=== PATIENT | male | born 1980 | race Caucasian/White ===

== ENCOUNTER 2020-01-07 15:30 | Inpatient (IN) | payer MEDICAID, SELFPAY ==
[2020-01-08 01:42] VITALS: BMI 34.5
[2020-01-09 06:39] VITALS: BP 91/55; PULSE 71; RESP 16; TEMP 36; O2SAT 94
[2020-01-09 07:00] VITALS: BMI 76.8
[2020-01-09] MEDS: Amphetamine Mixed Salts 20 MG TABLET PO ×2 (09:20→12:28)
[2020-01-09] MEDS: Amphetamine Mixed Salts 10 MG TABLET PO ×2 (09:20→12:28)
[2020-01-09] MEDS: Nicotine 14 MG PATCH.TD24 TRANSDERMA (09:21)
[2020-01-09] MEDS: Paliperidone ER 9 MG TAB.ER.24 PO (09:21)
[2020-01-09] MEDS: Sertraline HCL 100 MG TABLET PO (09:21)
[2020-01-09 09:31] VITALS: BP 128/60; PULSE 108
[2020-01-09] MEDS: atenoloL 25 MG TABLET PO (09:31)
[2020-01-09 14:45] VITALS: BMI 34.8
[2020-01-09 14:47] VITALS: BMI 76.8
--- NOTE | 2020-01-09 15:25 | P.PNPSI_ITS ---
Assessment & Plan Assessment & Plan (1) Suicidal ideation: Status: Acute Code(s): R45.851 - Suicidal ideations Assessment and Plan: No longer has SI (2) Opioid use: Status: Acute Code(s): F11.90 - Opioid use, unspecified, uncomplicated Assessment and Plan: No WD. Feels secure on sobriety Will continue methadone (3) Schizoaffective disorder: Status: Acute Code(s): F25.9 - Schizoaffective disorder, unspecified Assessment and Plan: Tolerated invega sustenna No other changes DC tommorrow Greater than 50% of the session was spent on counseling and/or coordination of care Subjective Subjective Date of Service: 01/09/20 Reason For Visit: Mdd Subjective Notes: Conditional Voluntary Interim History: Jaswinder received the invega sustenna yesterday and he feels that it was something he will continue with. He has no AH and he feels that he is ready to go home. He has no SI and he is supported by his mother. He declines having a VNA since this was not effective for him. He feels confident in his his sobriety. Medication Compliance: Yes Side effects from medications: No Attending Groups: Yes Mental Status Exam Mental Status Exam Patient Appearance: Well Grooomed Patient Orientation: Person, Place, Time and Situation Level of Consciousness: Awake Patient Behavior: Appropriate Patient Cognition Impaired: No Ability to Follow Directions: Excellent Speech Pattern: Clear Hallucinations: Auditory (Quiet) Delusions: Not Present Thought Process: Intact and Goal Oriented Thought Content: Preoccupation Depressive Symptoms: Increased Anxiety and Low Self Esteem Judgement: Good Diagnostics Vital Signs (24Hr): Vital Signs - 24 hr 01/09/20 06:39 01/09/20 09:31 Temperature 96.8 F Pulse Rate 71 108 H Respiratory Rate 16 Blood Pressure 91/55 L 128/60 Pulse Oximetry 94 Body Mass Index 76.8 Labs Labs: Laboratory Results - last 48 hr 01/06/20 01/07/20 01/08/20 20:34 11:13 07:42 Estimat Average Glucose 108 Hemoglobin A1c 5.4 Triglycerides Cholesterol LDL Cholesterol, Calc HDL Cholesterol Urine Opiates Screen POSITIVE H Ur Barbiturates Screen NOT DETECTED Phencyclidine Screen NOT DETECTED Ur Amphetamines Screen NOT DETECTED U Benzodiazepines Scrn NOT DETECTED Urine Cocaine Screen POSITIVE H U Cannabinoids Screen POSITIVE H Coronavirus (PCR) NEGATIVE 01/08/20 07:42 Estimat Average Glucose Hemoglobin A1c Triglycerides 130 D Cholesterol 146 LDL Cholesterol, Calc 61 HDL Cholesterol 59 D Urine Opiates Screen Ur Barbiturates Screen Phencyclidine Screen Ur Amphetamines Screen U Benzodiazepines Scrn Urine Cocaine Screen U Cannabinoids Screen Coronavirus (PCR) Medications Medications Ambulatory Orders Medication Instructions Recorded atenolol 25 mg PO DAILY 01/08/20 clonidine HCl 0.1 mg PO BID PRN 01/08/20 dextroamphetamine-amphetamine 30 mg PO BID@0830,1330 01/08/20 [Adderall XR] lorazepam 1 mg PO BID PRN 01/08/20 methadone [Methadone Intensol] 40 mg PO QAM 01/08/20 naloxone 8 mg INTRANASAL ONCE 01/08/20 nicotine 1 patch TRANSDERMAL DAILY 01/08/20 paliperidone 9 mg PO QAM 01/08/20 sertraline 100 mg PO DAILY 01/08/20 trazodone 100 mg PO BEDTIME 01/08/20 Allergies Allergies Allergy/AdvReac Type Severity Reaction Status Date / Time tomato [Tomato] Allergy Severe DIFFICULTY Unverified 12/26/19 15:17 BREATHING, swelling of face and throat divalproex sodium Allergy Mild SEIZURES Unverified 12/26/19 15:17 [From Depakote] olanzapine [From Zyprexa] Allergy Mild NIPPLES Unverified 12/26/19 15:17 LEAK risperidone [From Risperdal] Allergy Mild UNKNOWN Unverified 12/26/19 15:17 quetiapine [From SEROQUEL] Allergy Unknown HEART Unverified 12/26/19 15:17 PALPITATIONS lithium [[place]] AdvReac Mild STOMACH Unverified 12/26/19 15:17 PAIN aripiprazole [From ABILIFY] AdvReac Unknown DYSTONIA Unverified 12/26/19 15:17
[2020-01-09] MEDS: LORazepam 1 MG TABLET PO ×2 (16:02→20:14)
[2020-01-09 16:58] VITALS: BP 125/67; PULSE 73; TEMP 36.5
[2020-01-09 19:07] VITALS: BP 118/73; PULSE 104
[2020-01-09] MEDS: cloNIDine HCL 0.1 MG TABLET PO (19:07)
[2020-01-09] MEDS: traZODone HCL 100 MG TABLET PO (20:15)
[2020-01-10 06:14] VITALS: BP 112/63; PULSE 69; RESP 16; TEMP 35.7; O2SAT 98
[2020-01-10] MEDS: Paliperidone ER 9 MG TAB.ER.24 PO (08:36)
[2020-01-10] MEDS: Amphetamine Mixed Salts 20 MG TABLET PO (08:38)
[2020-01-10] MEDS: Sertraline HCL 100 MG TABLET PO (08:39)
[2020-01-10] MEDS: Amphetamine Mixed Salts 10 MG TABLET PO (08:39)
[2020-01-10 08:42] VITALS: BP 112/63; PULSE 69
[2020-01-10] MEDS: atenoloL 25 MG TABLET PO (08:42)
[2020-01-10] MEDS: Nicotine 14 MG PATCH.TD24 TRANSDERMA (08:43)
--- NOTE | 2020-01-10 09:12 | PM.PSYDC ---
DS: Providers Provider Date of admission: 01/07/20 15:30 Primary care physician: Jefry Robbins MD Attending physician on admission: Karishma Chavira Consults: 01/08/20 01:48 Consult to Crisis Routine Attending physician on discharge: Karishma Chavira Anticipated date of discharge: 01/10/20 DS: Diagnosis Discharge Diagnosis (1) Suicidal ideation: Status: Resolved (2) Opioid use: Status: Chronic (3) Schizoaffective disorder: Status: Chronic Discharge Plan Discharge Anticipated Discharge Date/Time: 01/10/20 11:45 Patient Disposition: Home, Self-Care Referrals: [facility] [Other] - 01/22/20 2:00 pm (Telehealth appointment) [facility] [Other] - 01/13/20 12:00 pm (Telehealth appointment) [facility] [Other] - 01/21/20 1:00 pm (Intake will be via phone, IOP will be virtual) Jefry Robbins MD [Primary Care Provider] - 01/16/20 11:45 am (DR.CHRISTIAN MATTSON VIA VIDEO OR TELEVISIT.FAX [phone]) Discharge Medications: New Invega Sustenna 156 mg/mL syringe 156 mg IM QMONTH Qty: 1 RF: 0 acetaminophen 325 mg Tablet 650 mg PO Q6H PRN (Reason: HEADACHE/PAIN,MILD (SCALE 1-3)) Qty: 30 RF: 0 trazodone 100 mg tablet 100 mg PO BEDTIME Qty: 30 RF: 0 Continued atenolol 25 mg Tablet 25 mg PO DAILY RF: 0 dextroamphetamine-amphetamine [Adderall XR] 30 mg Capsule,Extended Release 24hr 30 mg PO BID@0830,1330 RF: 0 clonidine HCl 0.1 mg Tablet 0.1 mg PO BID PRN (Reason: Anxiety) RF: 0 lorazepam 1 mg Tablet 1 mg PO BID PRN (Reason: Anxiety) RF: 0 nicotine 14 mg/24 hr Patch 24 Hour 1 patch TRANSDERMAL DAILY RF: 0 sertraline 100 mg Tablet 100 mg PO DAILY RF: 0 trazodone 100 mg Tablet 100 mg PO BEDTIME RF: 0 methadone [Methadone Intensol] 10 mg/mL Concentrate 40 mg PO QAM RF: 0 paliperidone 9 mg Tablet Extended Release 24hr 9 mg PO QAM RF: 0 naloxone 4 mg/actuation [place],Non-Aerosol 8 mg INTRANASAL ONCE RF: 0 Discharge Orders: Discharge Order (Routine); Ordered 01/10/20 Ordered By: Karishma Chavira Diet: advance to your usual diet Activity on Discharge: As tolerated Stand Alone Forms: Community Support, Substance Abuse Outpt Detox Discharge Date/Time: 01/10/20 11:25 Visit Report Forms: Patient Portal Discharge page Care Plan Goals: Stay on your medications Health Concerns: Psychosis Plan of Treatment: Reduce psychosis
== END 2020-01-10 11:25 | disposition home or self-care (01) | DRG 755 ==
PROVIDERS: Admitting Provider Psychiatry & Neurology Psychiatry; Emergency Provider Emergency Medicine; PCP Family Medicine; Visit Provider Psychiatry & Neurology Psychiatry
DX: F43.10 Post-traumatic stress disorder, unspecified (principal); F25.9 Schizoaffective disorder, unspecified; R45.851 Suicidal ideations; F11.11 Opioid abuse, in remission; Z79.899 Other long term (current) drug therapy
CPT/HCPCS: 80061; 80307; 83036; 90686; 99285; U0003

== ENCOUNTER 2020-01-19 12:03 | Emergency (ER) | payer MEDICAID, SELFPAY ==
[2020-01-19 12:35] VITALS: BP 137/103; PULSE 115; RESP 16; TEMP 36.6; O2SAT 97; BMI 32.5
--- NOTE | 2020-01-19 12:47 | ED.PSYCH ---
HPI - Psych General Chief Complaint: Psychiatric Symptoms Stated Complaint: SI ON HEROIN/PILLS Time Seen by Provider: 01/19/20 12:43 Source: patient Mode of arrival: ambulatory Limitations: no limitations History of Present Illness HPI Narrative: this is a 39 years old male with a history of polysubstance abuse, history of PTSD, history of schizoaffective disorder who presented today to the ED with a chief complaint of SI. MD complaint: suicidal ideation and feels depressed Onset (ago): day(s) (1) Duration: constant History of same: Yes Relieving factors: none Exacerbating factors: none Context: recent drug abuse Associated psychiatric symptoms: depression Associated symptoms: denies other symptoms Related Data Home Medications Medication Instructions Recorded Confirmed atenolol 25 mg PO DAILY 01/08/20 01/08/20 clonidine HCl 0.1 mg PO BID PRN 01/08/20 01/08/20 dextroamphetamine-amphetamine 30 mg PO BID@0830,1330 01/08/20 01/08/20 [Adderall XR] lorazepam 1 mg PO BID PRN 01/08/20 01/08/20 methadone [Methadone Intensol] 40 mg PO QAM 01/08/20 01/08/20 naloxone 8 mg INTRANASAL ONCE 01/08/20 01/08/20 nicotine 1 patch TRANSDERMAL DAILY 01/08/20 01/08/20 paliperidone 9 mg PO QAM 01/08/20 01/08/20 sertraline 100 mg PO DAILY 01/08/20 01/08/20 trazodone 100 mg PO BEDTIME 01/08/20 01/08/20 Previous Rx's Medication Instructions Recorded acetaminophen 650 mg PO Q6H PRN #30 tab 01/10/20 paliperidone palmitate [Invega 156 mg IM QMONTH #1 syringe 01/10/20 Sustenna] trazodone 100 mg PO BEDTIME #30 tab 01/10/20 Allergies Allergy/AdvReac Type Severity Reaction Status Date / Time tomato [Tomato] Allergy Severe DIFFICULTY Verified 01/09/20 15:59 BREATHING, swelling of face and throat divalproex sodium Allergy Mild SEIZURES Verified 01/09/20 15:59 [From Depakote] olanzapine [From Zyprexa] Allergy Mild NIPPLES Verified 01/09/20 15:59 LEAK risperidone [From Risperdal] Allergy Mild UNKNOWN Verified 01/09/20 15:59 quetiapine [From SEROQUEL] Allergy Unknown HEART Verified 01/09/20 15:59 PALPITATIONS lithium [[place]] AdvReac Mild STOMACH Verified 01/09/20 15:59 PAIN aripiprazole [From ABILIFY] AdvReac Unknown DYSTONIA Verified 01/09/20 15:59 Review of Systems Review of Systems: Yes all other systems are reviewed and are negative Cardiovascular: Cardiovascular: Reports as per HPI and Reports no additional cardiovascular complaints Respiratory: Respiratory: Reports no additional respiratory complaints and Reports no additional respiratory complaints Gastrointestinal: Gastrointestinal: Denies abdominal pain Neurologic: Reports system reviewed and no additional complaints, except as documented Hematologic/Lymphatic: Hematologic/Lymphatic: Reports no additional hematologic/lymphatic complaints [facility] Past Medical History Attestation statement: The following information was validated with the patient. Medical History Hep C w/o coma, chronic HTN (hypertension) Social History Social History Alcohol intake: never Smoking Status: Current every day smoker Use of substances other than those prescribed or required for medical reasons: Yes Substance Use Type: Heroin Advance Directives: No Advance Directives Information Provided: Yes Physical Exam Vital Signs: Vital Signs: Vital Signs Temp Pulse Resp BP Pulse Ox 01/19/20 14:09 114 H 137/103 H 01/19/20 12:35 98 F 115 H 16 137/103 H 97 Body Mass Index 32.5 Const: General: cooperative Orientation/consciousness: oriented to person HENMT: Head: Yes normal to inspection and Yes No palpable skull fracture present Eyes: General: appearance normal, both eyes and all related structures Neck: Neck: Yes normal visual inspection and Yes anterior neck swelling Chest: Chest palpation & inspection: normal inspection of the chest and normal palpation of entire chest wall Resp: Effort & Inspection: normal respiratory effort and able to speak in complete sentences Cardio: Jugular venous distension: no JVD Rate: regular rate Rhythm: regular rhythm Skin: General skin exam: no rashes or lesions noted Neuro: General: oriented to person and CN's II-XI intact bilaterally Extrem: General: Yes normal to inspection, Yes full ROM and Yes capillary refill normal Psych: Attitude: cooperative Thought content: Suicidality present Course Reevaluation(s) Reevaluation #1: we are waiting for psychiatric evaluation, the case will be transferred to to [facility] care Time: 16:29 MDM - Psych Restraints Face to Face Assessment: Face to Face Assessment: Current Situation: After assessment of the patient, a review of the pertinent medical record and a discussion with nursing staff, I feel the patient requires a restrain intervention. Reaction To: [] Medical Condition: [] Behavioral State: [] Continued Need: [] Lab Data Result diagrams: 01/19/20 13:36 Labs: Lab Results 01/19/20 01/19/20 01/19/20 Range/Units 13:30 13:36 13:36 WBC 5.0 (4.8-10.8) X10*3/uL RBC 4.76 (4.60-5.80) X10*6/uL Hgb 14.2 (14.0-18.0) g/dl Hct 42.7 (42-52) % MCV 89.7 (80-98) fL MCH 29.8 (27.0-33.0) pg MCHC 33.3 (31.0-36.0) g/dl RDW 12.8 (11.0-16.0) % Plt Count 161 (160-400) X10*3/uL MPV 12.2 (9.4-12.4) fL Immature Gran % (Auto) 0.2 (0.0-0.4) % Neut % (Auto) 60.6 (45-73) % Lymph % (Auto) 30.8 (20-40) % [place] % (Auto) 6.0 (2-11) % Eos % (Auto) 2.0 (0-4) % Baso % (Auto) 0.4 (0-2) % Lymph # (Auto) 1.5 (1.2-4.9) X10*3/uL [place] # (Auto) 0.3 (0.1-1.2) X10*3/uL Eos # (Auto) 0.1 (0.0-0.4) X10*3/uL Baso # (Auto) 0.0 (0.0-0.2) X10*3/uL Abs Immat Gran (auto) 0.01 (0.00-0.03) X10*3/uL Absolute Neuts (auto) 3.0 (2.0-8.3) X10*3/uL Absolute Nucleated RBC 0.000 (0.0-0.012) X10*3/uL Nucleated RBC % (auto) 0.0 (0.0-0.2) /100WBC Urine Opiates Screen POSITIVE H (Not Detect) Ur Barbiturates Screen Not Detected (Not Detect) Ur Phencyclidine Scrn Not Detected (Not Detect) Ur Amphetamines Screen Not Detected (Not Detect) U Benzodiazepines Scrn Not Detected (Not Detect) Urine Cocaine Screen POSITIVE H (Not Detect) U Marijuana (THC) Screen POSITIVE H (Not Detect) Ethyl Alcohol < 10 mg/dL Discharge Plan Discharge Prescriptions: No Action atenolol 25 mg Tablet 25 mg PO DAILY RF: 0 dextroamphetamine-amphetamine [Adderall XR] 30 mg Capsule,Extended Release 24hr 30 mg PO BID@0830,1330 RF: 0 clonidine HCl 0.1 mg Tablet 0.1 mg PO BID PRN (Reason: Anxiety) RF: 0 lorazepam 1 mg Tablet 1 mg PO BID PRN (Reason: Anxiety) RF: 0 nicotine 14 mg/24 hr Patch 24 Hour 1 patch TRANSDERMAL DAILY RF: 0 sertraline 100 mg Tablet 100 mg PO DAILY RF: 0 trazodone 100 mg Tablet 100 mg PO BEDTIME RF: 0 methadone [Methadone Intensol] 10 mg/mL Concentrate 40 mg PO QAM RF: 0 paliperidone 9 mg Tablet Extended Release 24hr 9 mg PO QAM RF: 0 naloxone 4 mg/actuation [place],Non-Aerosol 8 mg INTRANASAL ONCE RF: 0 Invega Sustenna 156 mg/mL syringe 156 mg IM QMONTH Qty: 1 RF: 0 acetaminophen 325 mg Tablet 650 mg PO Q6H PRN (Reason: HEADACHE/PAIN,MILD (SCALE 1-3)) Qty: 30 RF: 0 trazodone 100 mg tablet 100 mg PO BEDTIME Qty: 30 RF: 0
[2020-01-19 13:43] LABS: Basophils Percent Auto 0.4 % (0-2); Eosinophils Absolute Auto 0.1 X10*3/uL (0.0-0.4); Hematocrit 42.7 % (42-52); Hemoglobin 14.2 g/dl (14.0-18.0); Imm Gran Abs Auto 0.01 X10*3/uL (0.00-0.03); Imm Gran Pct Auto 0.2 % (0.0-0.4); Lymphocytes Absolute Auto 1.5 X10*3/uL (1.2-4.9); Lymphocytes Percent Auto 30.8 % (20-40); MANUAL DIFF FLAG NO; Mean Corpuscular HGB Conc 33.3 g/dl (31.0-36.0); Mean Corpuscular Hemoglobin 29.8 pg (27.0-33.0); Mean Corpuscular Volume 89.7 fL (80-98); Mean Platelet Volume 12.2 fL (9.4-12.4); Monocytes Absolute Auto 0.3 X10*3/uL (0.1-1.2); Neutrophils Percent Auto 60.6 % (45-73); Platelet Count 161 X10*3/uL (160-400); Red Blood Count 4.76 X10*6/uL (4.60-5.80); Red Cell Distribution Width 12.8 % (11.0-16.0)
--- NOTE | 2020-01-19 13:54 | PM.PSYCN ---
History of Present Illness Chief Complaint: SI ON HEROIN/PILLS Reason for Consult: Medication management Discussed with referring provider: No ( nursing staff) Sources of Information: patient interviewed and chart reviewed (Well known to me from previous admissions) HPI Narrative: Jaswinder was DC from on 01/10/20. He reports that the prescriptions for atenolol and adderall did not arrive at the pharmacy, though they were prescribed. Adderall XR 30mg po bid and Atenolol 25mg po qam were ordered. He presented to the ER today in a state of agitation. He had acute symptoms of ADHD with restlessness, anxiety and unable to sit still. He reports that he is not able to stand himself, and he has been alienating his family. He denies SI, though he had thought about it due to to his being so uncomfortable Past Psychiatric History: Multiple hospital stays. See records Medical Evaluation Reviewed: No (Has not yet been seen by ER physician) Review of Systems Review of Systems Yes all other systems are reviewed and are negative Reports system reviewed and no additional complaints, except as documented [facility] Medical History Hep C w/o coma, chronic HTN (hypertension) Substance History: History of opioid abuse Diagnostics Vital Signs (24Hr): Vital Signs - 24 hr 01/19/20 12:35 Temperature 98 F Pulse Rate 115 H Respiratory Rate 16 Blood Pressure 137/103 H Pulse Oximetry 97 Body Mass Index 32.5 Labs Results: 01/19/20 13:36 Labs: Laboratory Results - last 48 hr 01/19/20 13:36 WBC 5.0 RBC 4.76 Hgb 14.2 Hct 42.7 MCV 89.7 MCH 29.8 MCHC 33.3 RDW 12.8 Plt Count 161 MPV 12.2 Immature Gran % (Auto) 0.2 Neut % (Auto) 60.6 Lymph % (Auto) 30.8 [place] % (Auto) 6.0 Eos % (Auto) 2.0 Baso % (Auto) 0.4 Lymph # (Auto) 1.5 [place] # (Auto) 0.3 Eos # (Auto) 0.1 Baso # (Auto) 0.0 Abs Immat Gran (auto) 0.01 Absolute Neuts (auto) 3.0 Absolute Nucleated RBC 0.000 Nucleated RBC % (auto) 0.0 Mental Status Exam Mental Status Exam Patient Appearance: Well Grooomed Patient Orientation: Person, Place, Time and Situation Level of Consciousness: Awake and Restless Patient Behavior: Hyperactive Mood Description: Sad and Apprehensive Affect Description: Anxious, Sad and Apprehensive Patient Cognition Impaired: No Ability to Follow Directions: Good Speech Pattern: Spontaneous Speech and Pressured Memory Description: Intact Hallucinations: None Delusions: Not Present Thought Content: positive for Perseveration, negative for Suicidal Ideation and negative for Homicidal Ideation Medications Medications Current Medications Generic Name Dose Route Start Last Admin Trade Name Jairq PRN Reason Stop Dose Admin Amphetamine/Dextroamphetamine 30 mg 01/19/20 13:35 Amphetamine Mixed Salts 20 Mg Tablet PO BID@0830,1330 [facility] Atenolol 25 mg 01/19/20 13:40 Atenolol 25 Mg Tablet PO DAILY [facility] Protocol Allergies Allergies Allergy/AdvReac Type Severity Reaction Status Date / Time tomato [Tomato] Allergy Severe DIFFICULTY Verified 01/09/20 15:59 BREATHING, swelling of face and throat divalproex sodium Allergy Mild SEIZURES Verified 01/09/20 15:59 [From Depakote] olanzapine [From Zyprexa] Allergy Mild NIPPLES Verified 01/09/20 15:59 LEAK risperidone [From Risperdal] Allergy Mild UNKNOWN Verified 01/09/20 15:59 quetiapine [From SEROQUEL] Allergy Unknown HEART Verified 01/09/20 15:59 PALPITATIONS lithium [[place]] AdvReac Mild STOMACH Verified 01/09/20 15:59 PAIN aripiprazole [From ABILIFY] AdvReac Unknown DYSTONIA Verified 01/09/20 15:59 Assessment & Plan Assessment & Plan (1) ADHD: Status: Acute Code(s): F90.9 - Attention-deficit hyperactivity disorder, unspecified type Recommendations: Re-start adderall 30mg po bid Rx written for him to have when he is DC Atenolol 25mg po daily - prescription for refill needs to be written. [facility] evaluation (2) Opioid use: Status: Chronic Code(s): F11.90 - Opioid use, unspecified, uncomplicated Recommendations: Stable (3) Schizoaffective disorder: Status: Chronic Code(s): F25.9 - Schizoaffective disorder, unspecified Recommendations: Stable Greater than 50% of the session was spent on counseling and/or coordination of care
[2020-01-19 14:03] LABS: Ethanol < 10 mg/dL
[2020-01-19] MEDS: Amphetamine Mixed Salts 20 MG TABLET 30 MG PO (14:06)
[2020-01-19 14:09] VITALS: BP 137/103; PULSE 114
[2020-01-19] MEDS: atenoloL 25 MG TABLET PO (14:09)
[2020-01-19 14:17] LABS: Amphetamine Screen Urine Not Detected (Not Detect); Barbiturates, Urine Not Detected (Not Detect); Benzodiazepines Screen Urine Not Detected (Not Detect); Cannabinoid Screen Urine POSITIVE (Not Detect); Opiate Screen Urine POSITIVE (Not Detect)
--- NOTE | 2020-01-19 14:22 | PC.NURSE ---
Pt cooperative with coming over to the pod. Extremely restless, pacing, difficulty focusing. Psych consult ordered to address medications, and was seen. Pt given adderall and atenelol. Medication appears to be having a positive effect, decreasing restlessness, able to hold a coherent conversation with staff.
[2020-01-19 14:26] LABS: Cocaine Screen Urine POSITIVE (Not Detect); Phencyclidine Screen Urine Not Detected (Not Detect)
--- NOTE | 2020-01-19 16:28 | PC.NURSE ---
Pt awake, alert. Reports feeling much better after receiving medication.
[2020-01-19 16:31] VITALS: BP 126/81; PULSE 92; RESP 20; TEMP 36.1; O2SAT 95
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
[2020-01-19] MEDS: LORazepam 1 MG TABLET 2 MG PO (17:29)
--- NOTE | 2020-01-19 17:38 | PC.NURSE ---
Pt increasingly agitated due to length of stay - pacing, calling mother, raising voice. Pt medicated as ordered, counseled to take some time before calling home to regain behavioral control.
--- NOTE | 2020-01-19 18:44 | PC.NURSE ---
Pt continues to pace, states ativan is not effective, making multiple calls to family, angry on telephone, swearing at times. Pt asking repeatedly when [facility] will be in to evaluate. [facility] called, state they will send clinician after 1800.
--- NOTE | 2020-01-19 20:42 | PC.NURSE ---
Patient just got seen by N, disposition is to d/c home, provider notified/saw patient/approved d/c plan.
== END 2020-01-19 21:08 | disposition home or self-care (01) ==
PROVIDERS: Emergency Medicine; Emergency Provider Emergency Medicine Emergency Medical Services
DX: F11.10 Opioid abuse, uncomplicated (principal); R45.851 Suicidal ideations; F14.90 Cocaine use, unspecified, uncomplicated; F25.9 Schizoaffective disorder, unspecified; F43.10 Post-traumatic stress disorder, unspecified; F32.9 Major depressive disorder, single episode, unspecified; F17.200 Nicotine dependence, unspecified, uncomplicated; Z79.899 Other long term (current) drug therapy
CPT/HCPCS: 36415; 51798; 80307; 80320; 85025; 99284

== ENCOUNTER 2020-01-21 10:47 | Emergency (ER) | payer MEDICAID, SELFPAY ==
--- NOTE | 2020-01-21 10:51 | ED_ITS ---
HPI - Psych General Chief Complaint: Psychiatric Symptoms Stated Complaint: PSYCH EVAL W/ SI,AUDITORY HALLUCINATIONS Time Seen by Provider: 01/21/20 10:51 Source: patient and EMS Mode of arrival: EMS Limitations: no limitations History of Present Illness MD complaint: suicidal ideation Onset (ago): day(s) (3) Duration: constant History of same: Yes Relieving factors: none Exacerbating factors: none Context: significant life stressor Associated psychiatric symptoms: depression and suicidal ideation Associated symptoms: denies other symptoms Treatments prior to arrival: none If self harm: admits thoughts of self harm and has plan Related Data Home Medications Medication Instructions Recorded Confirmed atenolol 25 mg PO DAILY 01/08/20 01/08/20 clonidine HCl 0.1 mg PO BID PRN 01/08/20 01/08/20 dextroamphetamine-amphetamine 30 mg PO BID@0830,1330 01/08/20 01/08/20 [Adderall XR] lorazepam 1 mg PO BID PRN 01/08/20 01/08/20 methadone [Methadone Intensol] 40 mg PO QAM 01/08/20 01/08/20 naloxone 8 mg INTRANASAL ONCE 01/08/20 01/08/20 nicotine 1 patch TRANSDERMAL DAILY 01/08/20 01/08/20 paliperidone 9 mg PO QAM 01/08/20 01/08/20 sertraline 100 mg PO DAILY 01/08/20 01/08/20 trazodone 100 mg PO BEDTIME 01/08/20 01/08/20 Previous Rx's Medication Instructions Recorded acetaminophen 650 mg PO Q6H PRN #30 tab 01/10/20 paliperidone palmitate [Invega 156 mg IM QMONTH #1 syringe 01/10/20 Sustenna] trazodone 100 mg PO BEDTIME #30 tab 01/10/20 Allergies Allergy/AdvReac Type Severity Reaction Status Date / Time tomato [Tomato] Allergy Severe DIFFICULTY Verified 01/09/20 15:59 BREATHING, swelling of face and throat divalproex sodium Allergy Mild SEIZURES Verified 01/09/20 15:59 [From Depakote] olanzapine [From Zyprexa] Allergy Mild NIPPLES Verified 01/09/20 15:59 LEAK risperidone [From Risperdal] Allergy Mild UNKNOWN Verified 01/09/20 15:59 quetiapine [From SEROQUEL] Allergy Unknown HEART Verified 01/09/20 15:59 PALPITATIONS lithium [[place]] AdvReac Mild STOMACH Verified 01/09/20 15:59 PAIN aripiprazole [From ABILIFY] AdvReac Unknown DYSTONIA Verified 01/09/20 15:59 Review of Systems Review of Systems: Constitutional : No Fever, No Chills ENT/Mouth : No Ear Pain, No Nasal Congestion, No sore throat Eyes: No Eye Pain, No Swelling, No Redness Cardiovascular : No Chest Pain, No SOB Respiratory : No Cough, No Sputum, No Dyspnea Gastrointestinal : No Nausea, No Vomiting, No Diarrhea, No Hematochezia, No Melena Genitourinary : No Dysuria, No Urinary Frequency, No Hematuria Musculoskeletal : No Myalgias Skin : No Skin Lesions, No rash Neuro : No Weakness, No Numbness, No Paresthesias, No Dizziness, No Headache Psych : positive Anxiety, positive Depression, positive SI, no HI Heme/Lymph: No Lymphadenopathy Endocrine : No Polyuria, No Polydipsia All other systems reviewed and are negative [facility] Past Medical History Medical History (Updated 01/21/20 @ 15:50 by Tequila Jose DO) HTN (hypertension) OCD (obsessive compulsive disorder) Panic anxiety syndrome Post traumatic stress disorder (PTSD) Social History Social History Alcohol intake: never Smoking Status: Current every day smoker Substance Use Type: Heroin Advance Directives: No Advance Directives Information Provided: Yes Physical Exam Vital Signs: Vital Signs: Vital Signs Temp Pulse Resp BP Pulse Ox 01/21/20 14:20 18 01/21/20 11:07 98.2 F 118 H 18 151/85 H 98 Body Mass Index 34.4 Appearance: Alert. Oriented X3. No acute distress. Eyes: Pupils equal, round and reactive to light. ENT: Pharynx normal. Neck: Normal inspection. Neck supple. CVS: Normal heart rate and rhythm. Pulses normal. Respiratory: No respiratory distress. Breath sounds normal. Abdomen: Soft and nontender. Skin: Skin warm and dry. Normal skin color. Normal skin turgor. Extremities: No lower extremity edema. No calf ttp Neuro: Oriented X 3. No motor deficit. No sensory deficit. Psych: positive SI Course Course Course Narrative: signed out pending Lalitha Mcfadden MDM - Psych MDM Narrative Medical decision making narrative: 39 yo male with significant PMH of mental health issues c/o SI with plan to jump off bridge and or hang himself, labs and crisis consult ordered Restraints Face to Face Assessment: Face to Face Assessment: Current Situation: After assessment of the patient, a review of the pertinent medical record and a discussion with nursing staff, I feel the patient requires a restrain intervention. Reaction To: [] Medical Condition: [] Behavioral State: [] Continued Need: [] Lab Data Result diagrams: 01/21/20 12:02 01/21/20 12: Labs: Lab Results 01/21/20 01/21/20 01/21/20 Range/Units 12: 12: 12:02 WBC 5.2 (4.8-10.8) X10*3/uL RBC 4.86 (4.60-5.80) X10*6/uL Hgb 14.3 (14.0-18.0) g/dl Hct 42.3 (42-52) % MCV 87.0 (80-98) fL MCH 29.4 (27.0-33.0) pg MCHC 33.8 (31.0-36.0) g/dl RDW 12.6 (11.0-16.0) % Plt Count 161 (160-400) X10*3/uL MPV 12.0 (9.4-12.4) fL Immature Gran % (Auto) 0.2 (0.0-0.4) % Neut % (Auto) 70.2 (45-73) % Lymph % (Auto) 23.5 (20-40) % [place] % (Auto) 5.3 (2-11) % Eos % (Auto) 0.6 (0-4) % Baso % (Auto) 0.2 (0-2) % Lymph # (Auto) 1.2 (1.2-4.9) X10*3/uL [place] # (Auto) 0.3 (0.1-1.2) X10*3/uL Eos # (Auto) 0.0 (0.0-0.4) X10*3/uL Baso # (Auto) 0.0 (0.0-0.2) X10*3/uL Abs Immat Gran (auto) 0.01 (0.00-0.03) X10*3/uL Absolute Neuts (auto) 3.7 (2.0-8.3) X10*3/uL Absolute Nucleated RBC 0.000 (0.0-0.012) X10*3/uL Nucleated RBC % (auto) 0.0 (0.0-0.2) /100WBC Sodium 136 (135-145) mmol/L Potassium 3.9 (3.3-5.1) mmol/l Chloride 102 (96-108) mmol/L Carbon Dioxide 22 (22-29) mmol/L Anion Gap 16 (12-20) BUN 21 H (9-16) mg/dL Creatinine 0.74 (0.5-1.4) mg/dL Estim Creat Clear Calc 172.1 Estimated GFR > 60 Random Glucose 95 (60-115) mg/dL Calcium 9.4 (8.4-10.2) mg/dL Total Bilirubin 0.7 (0.0-1.0) mg/dL Direct Bilirubin 0.4 (0.0-0.5) mg/dL AST 104 H (5-37) U/L ALT 99 H (0-40) U/L Alkaline Phosphatase 107 (39-117) U/L Total Protein 7.7 (6.5-8.0) g/dL Albumin 4.6 (3.5-5.0) g/dL Urine Opiates Screen (Not Detect) Ur Barbiturates Screen (Not Detect) Ur Phencyclidine Scrn (Not Detect) Ur Amphetamines Screen (Not Detect) U Benzodiazepines Scrn (Not Detect) Urine Cocaine Screen (Not Detect) U Marijuana (THC) Screen (Not Detect) Ethyl Alcohol < 10 mg/dL 01/21/20 Range/Units 14:17 WBC (4.8-10.8) X10*3/uL RBC (4.60-5.80) X10*6/uL Hgb (14.0-18.0) g/dl Hct (42-52) % MCV (80-98) fL MCH (27.0-33.0) pg MCHC (31.0-36.0) g/dl RDW (11.0-16.0) % Plt Count (160-400) X10*3/uL MPV (9.4-12.4) fL Immature Gran % (Auto) (0.0-0.4) % Neut % (Auto) (45-73) % Lymph % (Auto) (20-40) % [place] % (Auto) (2-11) % Eos % (Auto) (0-4) % Baso % (Auto) (0-2) % Lymph # (Auto) (1.2-4.9) X10*3/uL [place] # (Auto) (0.1-1.2) X10*3/uL Eos # (Auto) (0.0-0.4) X10*3/uL Baso # (Auto) (0.0-0.2) X10*3/uL Abs Immat Gran (auto) (0.00-0.03) X10*3/uL Absolute Neuts (auto) (2.0-8.3) X10*3/uL Absolute Nucleated RBC (0.0-0.012) X10*3/uL Nucleated RBC % (auto) (0.0-0.2) /100WBC Sodium (135-145) mmol/L Potassium (3.3-5.1) mmol/l Chloride (96-108) mmol/L Carbon Dioxide (22-29) mmol/L Anion Gap (12-20) BUN (9-16) mg/dL Creatinine (0.5-1.4) mg/dL Estim Creat Clear Calc Estimated GFR Random Glucose (60-115) mg/dL Calcium (8.4-10.2) mg/dL Total Bilirubin (0.0-1.0) mg/dL Direct Bilirubin (0.0-0.5) mg/dL AST (5-37) U/L ALT (0-40) U/L Alkaline Phosphatase (39-117) U/L Total Protein (6.5-8.0) g/dL Albumin (3.5-5.0) g/dL Urine Opiates Screen POSITIVE H (Not Detect) Ur Barbiturates Screen Not Detected (Not Detect) Ur Phencyclidine Scrn Not Detected (Not Detect) Ur Amphetamines Screen POSITIVE H (Not Detect) U Benzodiazepines Scrn Not Detected (Not Detect) Urine Cocaine Screen POSITIVE H (Not Detect) U Marijuana (THC) Screen POSITIVE H (Not Detect) Ethyl Alcohol mg/dL Discharge Plan Discharge Clinical Impression: Suicidal ideation, Active substance abuse Prescriptions: No Action atenolol 25 mg Tablet 25 mg PO DAILY RF: 0 dextroamphetamine-amphetamine [Adderall XR] 30 mg Capsule,Extended Release 24hr 30 mg PO BID@0830,1330 RF: 0 clonidine HCl 0.1 mg Tablet 0.1 mg PO BID PRN (Reason: Anxiety) RF: 0 lorazepam 1 mg Tablet 1 mg PO BID PRN (Reason: Anxiety) RF: 0 nicotine 14 mg/24 hr Patch 24 Hour 1 patch TRANSDERMAL DAILY RF: 0 sertraline 100 mg Tablet 100 mg PO DAILY RF: 0 trazodone 100 mg Tablet 100 mg PO BEDTIME RF: 0 methadone [Methadone Intensol] 10 mg/mL Concentrate 40 mg PO QAM RF: 0 paliperidone 9 mg Tablet Extended Release 24hr 9 mg PO QAM RF: 0 naloxone 4 mg/actuation [place],Non-Aerosol 8 mg INTRANASAL ONCE RF: 0 Invega Sustenna 156 mg/mL syringe 156 mg IM QMONTH Qty: 1 RF: 0 acetaminophen 325 mg Tablet 650 mg PO Q6H PRN (Reason: HEADACHE/PAIN,MILD (SCALE 1-3)) Qty: 30 RF: 0 trazodone 100 mg tablet 100 mg PO BEDTIME Qty: 30 RF: 0
[2020-01-21 11:07] VITALS: BP 144/98; BP 151/85; PULSE 106; PULSE 118; RESP 18; TEMP 36.8; O2SAT 98; O2SAT 99; BMI 34.4
[2020-01-21 12:08] LABS: MANUAL DIFF FLAG NO
[2020-01-21 12:13] LABS: Basophils Percent Auto 0.2 % (0-2); Eosinophils Percent Auto 0.6 % (0-4); Hematocrit 42.3 % (42-52); Hemoglobin 14.3 g/dl (14.0-18.0); Imm Gran Abs Auto 0.01 X10*3/uL (0.00-0.03); Imm Gran Pct Auto 0.2 % (0.0-0.4); Lymphocytes Absolute Auto 1.2 X10*3/uL (1.2-4.9); Lymphocytes Percent Auto 23.5 % (20-40); Mean Corpuscular HGB Conc 33.8 g/dl (31.0-36.0); Mean Corpuscular Hemoglobin 29.4 pg (27.0-33.0); Monocytes Absolute Auto 0.3 X10*3/uL (0.1-1.2); Monocytes Percent Auto 5.3 % (2-11); Neutrophils Absolute Auto 3.7 X10*3/uL (2.0-8.3); Neutrophils Percent Auto 70.2 % (45-73); Platelet Count 161 X10*3/uL (160-400); Red Blood Count 4.86 X10*6/uL (4.60-5.80); Red Cell Distribution Width 12.6 % (11.0-16.0); White Blood Count 5.2 X10*3/uL (4.8-10.8)
[2020-01-21 12:34] LABS: Ethanol < 10 mg/dL
[2020-01-21 12:39] LABS: Alanine Aminotransferase 99 U/L (0-40); Albumin Level 4.6 g/dL (3.5-5.0); Alkaline Phosphatase 107 U/L (39-117); Anion Gap 16 (12-20); Aspartate Amino Transferase 104 U/L (5-37); Bilirubin Direct 0.4 mg/dL (0.0-0.5); Bilirubin Total 0.7 mg/dL (0.0-1.0); Blood Urea Nitrogen 21 mg/dL (9-16); Calcium 9.4 mg/dL (8.4-10.2); Carbon Dioxide 22 mmol/L (22-29); Chloride 102 mmol/L (96-108); Creatinine Clr Calc Pharmacy 172.1; Estimated Glomerular Filt Rate > 60; Glucose Random 95 mg/dL (60-115); Potassium 3.9 mmol/l (3.3-5.1); Sodium 136 mmol/L (135-145); Total Protein 7.7 g/dL (6.5-8.0)
--- NOTE | 2020-01-21 14:19 | PC.NURSE ---
pt ambulated to bathroom w/steady gait. urine sample sent to lab
[2020-01-21 14:20] VITALS: RESP 18
[2020-01-21 15:04] LABS: Amphetamine Screen Urine POSITIVE (Not Detect); Barbiturates, Urine Not Detected (Not Detect); Benzodiazepines Screen Urine Not Detected (Not Detect); Cannabinoid Screen Urine POSITIVE (Not Detect); Cocaine Screen Urine POSITIVE (Not Detect); Opiate Screen Urine POSITIVE (Not Detect); Phencyclidine Screen Urine Not Detected (Not Detect)
--- NOTE | 2020-01-21 15:04 | PC.NURSE ---
Pt ambulated to pod with steady gait, calm and cooperative, pleasant in conversation, denies complaints.
--- NOTE | 2020-01-21 16:08 | PC.NURSE ---
[facility] faxed and called, verified with Sakshi
[2020-01-21 16:22] VITALS: BP 137/84; PULSE 108; RESP 18; TEMP 36.3; O2SAT 96
[2020-01-21 20:00] VITALS: RESP 18
--- NOTE | 2020-01-21 21:52 | MHC.CARE ---
CARE team consult requested by ED physician for pt who arrived to the ED earlier in the afternoon endorsing suicidal thoughts the previous evening secondary to family conflict in response to pt's substance use. Pt reported to this pattern chart writer that after an argument with his sister and mother the previous evening he went for a walk and had climbed onto a fence on a bridge to think about what he needs to do, as he is becoming more aware of the impact his addiction is having on his family. 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 Pt stated that he has been seen by crisis in the ED six times since early summer, and believes that the underlying problem has always been his substance use. Pt reported that he has been compliant with his prescribed medications, and that his mother checks to make sure that he has taken his medications as directed. Pt denied experiencing any thoughts or urges to harm self, denied recent attempts to harm self, and denied thoughts of harming others. ED physician was consulted re: recommendation that pt discharge home with plan to follow up with substance use recovery resources provided to pt during this visit.
[2020-01-21 21:59] VITALS: BP 125/83; PULSE 121; RESP 18; TEMP 35.9; O2SAT 95
== END 2020-01-21 22:00 | disposition home or self-care (01) ==
PROVIDERS: Emergency Provider Emergency Medicine; PCP Family Medicine
DX: R45.851 Suicidal ideations (principal); F19.10 Other psychoactive substance abuse, uncomplicated; I10 Essential (primary) hypertension; F41.0 Panic disorder [episodic paroxysmal anxiety]; F43.10 Post-traumatic stress disorder, unspecified; Z79.899 Other long term (current) drug therapy
CPT/HCPCS: 36415; 80048; 80076; 80307; 80320; 85025; 99285

== ENCOUNTER 2020-03-30 19:50 | Inpatient (IN) | payer OTHER, SELFPAY ==
[2020-03-30 20:27] VITALS: BP 126/70; PULSE 205; RESP 18; TEMP 37; O2SAT 96; BMI 31.1
--- NOTE | 2020-03-30 20:47 | PC.NURSE ---
Pt reports feeling unsafe being alone, has plan to hang self, currently suicidal. placed on 1:1 at RN discretion. conveyor line battery charger, deirdre Hankins.
--- NOTE | 2020-03-30 21:13 | ED.PSYCH ---
HPI - Psych General Chief Complaint: Psychiatric Symptoms <John Mcfadden MD - Last Filed: 03/31/20 05:13> Stated Complaint: Crisis <John Mcfadden MD - Last Filed: 03/31/20 05:13> Time Seen by Provider: 03/30/20 21:13 <John Mcfadden MD - Last Filed: 03/31/20 05:13> Source: patient <John Mcfadden MD - Last Filed: 03/31/20 05:13> Mode of arrival: ambulatory <John Mcfadden MD - Last Filed: 03/31/20 05:13> Limitations: no limitations <John Mcfadden MD - Last Filed: 03/31/20 05:13> History of Present Illness HPI Narrative: Patient history of depression. Taking his medication 2 months ago feeling increasingly depressed feels suicidal thoughts of hanging himself. Patient father on 03/21 secondary to colon cancer patient not eating for last 4 days sleeping most of the time feels very depressed , having flashbacks <John Mcfadden MD - Last Filed: 03/31/20 05:13> MD complaint: suicidal ideation and feels depressed <John Mcfadden MD - Last Filed: 03/31/20 05:13> Onset (ago): month(s) <John Mcfadden MD - Last Filed: 03/31/20 05:13> Duration: constant <John Mcfadden MD - Last Filed: 03/31/20 05:13> History of same: Yes <John Mcfadden MD - Last Filed: 03/31/20 05:13> Relieving factors: none <John Mcfadden MD - Last Filed: 03/31/20 05:13> Exacerbating factors: none <John Mcfadden MD - Last Filed: 03/31/20 05:13> Associated psychiatric symptoms: depression, suicidal ideation and auditory hallucinations <John Mcfadden MD - Last Filed: 03/31/20 05:13> If self harm: admits thoughts of self harm and has plan <John Mcfadden MD - Last Filed: 03/31/20 05:13> Related Data Home Medications: Home Medications Medication Instructions Recorded Confirmed atenolol 25 mg PO DAILY 01/08/20 01/21/20 clonidine HCl 0.1 mg PO BID PRN 01/08/20 01/21/20 dextroamphetamine-amphetamine 30 mg PO BID@0830,1330 01/08/20 01/21/20 [Adderall XR] lorazepam 1 mg PO BID PRN 01/08/20 01/21/20 paliperidone 9 mg PO QAM 01/08/20 01/21/20 sertraline 100 mg PO DAILY 01/08/20 01/21/20 trazodone 100 mg PO BEDTIME 01/08/20 01/21/20 Previous Rx's Medication Instructions Recorded acetaminophen 650 mg PO Q6H PRN #30 tab 01/10/20 paliperidone palmitate [Invega 156 mg IM QMONTH #1 syringe 01/10/20 Sustenna] <John Mcfadden MD - Last Filed: 03/31/20 05:13> Allergies/Adverse Reactions: Allergies Allergy/AdvReac Type Severity Reaction Status Date / Time tomato [Tomato] Allergy Severe DIFFICULTY Verified 01/09/20 15:59 BREATHING, swelling of face and throat divalproex sodium Allergy Mild SEIZURES Verified 01/09/20 15:59 [From Depakote] olanzapine [From Zyprexa] Allergy Mild NIPPLES Verified 01/09/20 15:59 LEAK risperidone [From Risperdal] Allergy Mild UNKNOWN Verified 01/09/20 15:59 quetiapine [From SEROQUEL] Allergy Unknown HEART Verified 01/09/20 15:59 PALPITATIONS lithium [Eola] AdvReac Mild STOMACH Verified 01/09/20 15:59 PAIN aripiprazole [From ABILIFY] AdvReac Unknown DYSTONIA Verified 01/09/20 15:59 <John Mcfadden MD - Last Filed: 03/31/20 05:13> Review of Systems Review of Systems: Constitutional : No Fever, No Chills ENT/Mouth : No Ear Pain, No Nasal Congestion, No sore throat Eyes: No Eye Pain, No Swelling, No Redness Cardiovascular : No Chest Pain, No SOB Respiratory : No Cough, No Sputum, No Dyspnea Gastrointestinal : No Nausea, No Vomiting, No Diarrhea, No Hematochezia, No Melena Genitourinary : No Dysuria, No Urinary Frequency, No Hematuria Musculoskeletal : No Myalgias Skin : No Skin Lesions, No rash Neuro : No Weakness, No Numbness, No Paresthesias, No Dizziness, No Headache Psych : positive Depression, positive SI Heme/Lymph: No Lymphadenopathy Endocrine : No Polyuria, No Polydipsia <John Mcfadden MD - Last Filed: 03/31/20 05:13> [facility] Past Medical History Medical History: Medical History HTN (hypertension) OCD (obsessive compulsive disorder) Panic anxiety syndrome Post traumatic stress disorder (PTSD) <John Mcfadden MD - Last Filed: 03/31/20 05:13> Social History Social History: Social History Alcohol intake: unknown Smoking Status: Unknown if ever smoked Use of substances other than those prescribed or required for medical reasons: Unknown Substance Use Type: Amphetamines, Crack/Cocaine, Marijuana and Opiates Advance Directives: No Advance Directives Information Provided: No <John Mcfadden MD - Last Filed: 03/31/20 05:13> Physical Exam Vital Signs: Vital Signs: Last Vital Signs Temp 96.9 F 03/31/20 01:18 Pulse 96 03/31/20 01:18 Resp 20 03/31/20 01:18 BP 120/83 03/31/20 01:18 Pulse Ox 98 03/31/20 01:18 Body Mass Index 31.1 <John Mcfadden MD - Last Filed: 03/31/20 05:13> Vital Signs: Last Vital Signs Temp 96.9 F 03/31/20 01:18 Pulse 96 03/31/20 01:18 Resp 20 03/31/20 01:18 BP 120/83 03/31/20 01:18 Pulse Ox 98 03/31/20 01:18 Body Mass Index 31.1 <GERALD Lyons - Last Filed: 03/31/20 08:16> Appearance: Alert. Oriented X3. No acute distress. Eyes: Pupils equal, round and reactive to light. ENT: Pharynx normal. Neck: Normal inspection. Neck supple. CVS: Normal heart rate and rhythm. Pulses normal. Respiratory: No respiratory distress. Breath sounds normal. Abdomen: Soft and nontender. Bowel sounds are present, no mass palpable, no CVA tenderness Skin: Skin warm and dry. Normal skin color. Normal skin turgor. Extremities: No lower extremity edema. psych: Feel depressed suicidal, no hallucinations at this time judgment is fair Neuro: Oriented X 3. No motor deficit. No sensory deficit. <John Mcfadden MD - Last Filed: 03/31/20 05:13> Course Course Course Narrative: Patient has significant depression with suicidal ideation plan seen by therapist ,patient will be placed as inpatient psych <John Mcfadden MD - Last Filed: 03/31/20 05:13> Patient sleeping comfortably this morning. Vitals and labs reviewed - HR 96 (205 documented on arrival is likely an error). He was seen by [facility] overnight and is an inpatient bed search. <GERALD Lyons - Last Filed: 03/31/20 08:16> MDM - Psych Differential Diagnosis Differential diagnosis: Likely suicidal ideation and depression <John Mcfadden MD - Last Filed: 03/31/20 05:13> Restraints Face to Face Assessment: Face to Face Assessment: Current Situation: After assessment of the patient, a review of the pertinent medical record and a discussion with nursing staff, I feel the patient requires a restrain intervention. Reaction To: [] Medical Condition: [] Behavioral State: [] Continued Need: [] <John Mcfadden MD - Last Filed: 03/31/20 05:13> Lab Data Attestation: I reviewed the patient's lab results. <John Mcfadden MD - Last Filed: 03/31/20 05:13> Result diagrams: : 03/31/20 00:20 03/31/20 00:20 <John Mcfadden MD - Last Filed: 03/31/20 05:13> Labs: Lab Results 03/30/20 03/30/20 03/30/20 Range/Units 22:10 22:10 22:11 WBC (4.8-10.8) X10*3/uL RBC (4.60-5.80) X10*6/uL Hgb (14.0-18.0) g/dl Hct (42-52) % MCV (80-98) fL MCH (27.0-33.0) pg MCHC (31.0-36.0) g/dl RDW (11.0-16.0) % Plt Count (160-400) X10*3/uL MPV (9.4-12.4) fL Immature Gran % (Auto) (0.0-0.4) % Neut % (Auto) (45-73) % Lymph % (Auto) (20-40) % [place] % (Auto) (2-11) % Eos % (Auto) (0-4) % Baso % (Auto) (0-2) % Lymph # (Auto) (1.2-4.9) X10*3/uL [place] # (Auto) (0.1-1.2) X10*3/uL Eos # (Auto) (0.0-0.4) X10*3/uL Baso # (Auto) (0.0-0.2) X10*3/uL Abs Immat Gran (auto) (0.00-0.03) X10*3/uL Absolute Neuts (auto) (2.0-8.3) X10*3/uL Absolute Nucleated RBC (0.0-0.012) X10*3/uL Nucleated RBC % (auto) (0.0-0.2) /100WBC Sodium (135-145) mmol/L Potassium (3.3-5.1) mmol/l Chloride (96-108) mmol/L Carbon Dioxide (22-29) mmol/L Anion Gap (12-20) BUN (9-16) mg/dL Creatinine (0.5-1.4) mg/dL Estim Creat Clear Calc Estimated GFR Random Glucose (60-115) mg/dL Calcium (8.4-10.2) mg/dL Total Bilirubin (0.0-1.0) mg/dL Direct Bilirubin (0.0-0.5) mg/dL AST (5-37) U/L ALT (0-40) U/L Alkaline Phosphatase (39-117) U/L Total Protein (6.5-8.0) g/dL Albumin (3.5-5.0) g/dL Urine Opiates Screen Not Detected (Not Detect) Ur Barbiturates Screen Not Detected (Not Detect) Ur Phencyclidine Scrn Not Detected (Not Detect) Ur Amphetamines Screen Not Detected (Not Detect) U Benzodiazepines Scrn Not Detected (Not Detect) Urine Cocaine Screen POSITIVE H (Not Detect) U Marijuana (THC) Screen Not Detected (Not Detect) Ethyl Alcohol mg/dL Coronavirus (PCR) Cancelled COVID-19 (SHAYY) Negative (Negative) COVID-19 Clin Com See Note Influenza Type A (PCR) Cancelled Influenza Type B (PCR) Cancelled RSV RNA Qual (PCR) Cancelled 03/31/20 03/31/20 03/31/20 Range/Units 00:20 00:20 00:20 WBC 7.8 (4.8-10.8) X10*3/uL RBC 4.95 (4.60-5.80) X10*6/uL Hgb 14.5 (14.0-18.0) g/dl Hct 43.0 (42-52) % MCV 86.9 (80-98) fL MCH 29.3 (27.0-33.0) pg MCHC 33.7 (31.0-36.0) g/dl RDW 12.4 (11.0-16.0) % Plt Count 261 D (160-400) X10*3/uL MPV 11.2 (9.4-12.4) fL Immature Gran % (Auto) 0.5 H (0.0-0.4) % Neut % (Auto) 57.0 (45-73) % Lymph % (Auto) 31.5 (20-40) % [place] % (Auto) 7.8 (2-11) % Eos % (Auto) 2.7 (0-4) % Baso % (Auto) 0.5 (0-2) % Lymph # (Auto) 2.5 (1.2-4.9) X10*3/uL [place] # (Auto) 0.6 (0.1-1.2) X10*3/uL Eos # (Auto) 0.2 (0.0-0.4) X10*3/uL Baso # (Auto) 0.0 (0.0-0.2) X10*3/uL Abs Immat Gran (auto) 0.04 H (0.00-0.03) X10*3/uL Absolute Neuts (auto) 4.5 (2.0-8.3) X10*3/uL Absolute Nucleated RBC 0.000 (0.0-0.012) X10*3/uL Nucleated RBC % (auto) 0.0 (0.0-0.2) /100WBC Sodium 137 (135-145) mmol/L Potassium 4.2 (3.3-5.1) mmol/l Chloride 105 (96-108) mmol/L Carbon Dioxide 20 L (22-29) mmol/L Anion Gap 16 (12-20) BUN 16 (9-16) mg/dL Creatinine 0.78 (0.5-1.4) mg/dL Estim Creat Clear Calc 155.6 Estimated GFR > 60 Random Glucose 85 (60-115) mg/dL Calcium 8.6 D (8.4-10.2) mg/dL Total Bilirubin 0.4 (0.0-1.0) mg/dL Direct Bilirubin 0.2 (0.0-0.5) mg/dL AST 30 D (5-37) U/L ALT 32 (0-40) U/L Alkaline Phosphatase 90 (39-117) U/L Total Protein 7.2 (6.5-8.0) g/dL Albumin 4.1 (3.5-5.0) g/dL Urine Opiates Screen (Not Detect) Ur Barbiturates Screen (Not Detect) Ur Phencyclidine Scrn (Not Detect) Ur Amphetamines Screen (Not Detect) U Benzodiazepines Scrn (Not Detect) Urine Cocaine Screen (Not Detect) U Marijuana (THC) Screen (Not Detect) Ethyl Alcohol < 10 mg/dL Coronavirus (PCR) COVID-19 (SHAYY) (Negative) COVID-19 Clin Com Influenza Type A (PCR) Influenza Type B (PCR) RSV RNA Qual (PCR) <John Mcfadden MD - Last Filed: 03/31/20 05:13> Lab Results 03/30/20 03/30/20 03/30/20 Range/Units 22:10 22:10 22:11 WBC (4.8-10.8) X10*3/uL RBC (4.60-5.80) X10*6/uL Hgb (14.0-18.0) g/dl Hct (42-52) % MCV (80-98) fL MCH (27.0-33.0) pg MCHC (31.0-36.0) g/dl RDW (11.0-16.0) % Plt Count (160-400) X10*3/uL MPV (9.4-12.4) fL Immature Gran % (Auto) (0.0-0.4) % Neut % (Auto) (45-73) % Lymph % (Auto) (20-40) % [place] % (Auto) (2-11) % Eos % (Auto) (0-4) % Baso % (Auto) (0-2) % Lymph # (Auto) (1.2-4.9) X10*3/uL [place] # (Auto) (0.1-1.2) X10*3/uL Eos # (Auto) (0.0-0.4) X10*3/uL Baso # (Auto) (0.0-0.2) X10*3/uL Abs Immat Gran (auto) (0.00-0.03) X10*3/uL Absolute Neuts (auto) (2.0-8.3) X10*3/uL Absolute Nucleated RBC (0.0-0.012) X10*3/uL Nucleated RBC % (auto) (0.0-0.2) /100WBC Sodium (135-145) mmol/L Potassium (3.3-5.1) mmol/l Chloride (96-108) mmol/L Carbon Dioxide (22-29) mmol/L Anion Gap (12-20) BUN (9-16) mg/dL Creatinine (0.5-1.4) mg/dL Estim Creat Clear Calc Estimated GFR Random Glucose (60-115) mg/dL Calcium (8.4-10.2) mg/dL Total Bilirubin (0.0-1.0) mg/dL Direct Bilirubin (0.0-0.5) mg/dL AST (5-37) U/L ALT (0-40) U/L Alkaline Phosphatase (39-117) U/L Total Protein (6.5-8.0) g/dL Albumin (3.5-5.0) g/dL Urine Opiates Screen Not Detected (Not Detect) Ur Barbiturates Screen Not Detected (Not Detect) Ur Phencyclidine Scrn Not Detected (Not Detect) Ur Amphetamines Screen Not Detected (Not Detect) U Benzodiazepines Scrn Not Detected (Not Detect) Urine Cocaine Screen POSITIVE H (Not Detect) U Marijuana (THC) Screen Not Detected (Not Detect) Ethyl Alcohol mg/dL Coronavirus (PCR) Cancelled COVID-19 (SHAYY) Negative (Negative) COVID-19 Clin Com See Note Influenza Type A (PCR) Cancelled Influenza Type B (PCR) Cancelled RSV RNA Qual (PCR) Cancelled 03/31/20 03/31/20 03/31/20 Range/Units 00:20 00:20 00:20 WBC 7.8 (4.8-10.8) X10*3/uL RBC 4.95 (4.60-5.80) X10*6/uL Hgb 14.5 (14.0-18.0) g/dl Hct 43.0 (42-52) % MCV 86.9 (80-98) fL MCH 29.3 (27.0-33.0) pg MCHC 33.7 (31.0-36.0) g/dl RDW 12.4 (11.0-16.0) % Plt Count 261 D (160-400) X10*3/uL MPV 11.2 (9.4-12.4) fL Immature Gran % (Auto) 0.5 H (0.0-0.4) % Neut % (Auto) 57.0 (45-73) % Lymph % (Auto) 31.5 (20-40) % [place] % (Auto) 7.8 (2-11) % Eos % (Auto) 2.7 (0-4) % Baso % (Auto) 0.5 (0-2) % Lymph # (Auto) 2.5 (1.2-4.9) X10*3/uL [place] # (Auto) 0.6 (0.1-1.2) X10*3/uL Eos # (Auto) 0.2 (0.0-0.4) X10*3/uL Baso # (Auto) 0.0 (0.0-0.2) X10*3/uL Abs Immat Gran (auto) 0.04 H (0.00-0.03) X10*3/uL Absolute Neuts (auto) 4.5 (2.0-8.3) X10*3/uL Absolute Nucleated RBC 0.000 (0.0-0.012) X10*3/uL Nucleated RBC % (auto) 0.0 (0.0-0.2) /100WBC Sodium 137 (135-145) mmol/L Potassium 4.2 (3.3-5.1) mmol/l Chloride 105 (96-108) mmol/L Carbon Dioxide 20 L (22-29) mmol/L Anion Gap 16 (12-20) BUN 16 (9-16) mg/dL Creatinine 0.78 (0.5-1.4) mg/dL Estim Creat Clear Calc 155.6 Estimated GFR > 60 Random Glucose 85 (60-115) mg/dL Calcium 8.6 D (8.4-10.2) mg/dL Total Bilirubin 0.4 (0.0-1.0) mg/dL Direct Bilirubin 0.2 (0.0-0.5) mg/dL AST 30 D (5-37) U/L ALT 32 (0-40) U/L Alkaline Phosphatase 90 (39-117) U/L Total Protein 7.2 (6.5-8.0) g/dL Albumin 4.1 (3.5-5.0) g/dL Urine Opiates Screen (Not Detect) Ur Barbiturates Screen (Not Detect) Ur Phencyclidine Scrn (Not Detect) Ur Amphetamines Screen (Not Detect) U Benzodiazepines Scrn (Not Detect) Urine Cocaine Screen (Not Detect) U Marijuana (THC) Screen (Not Detect) Ethyl Alcohol < 10 mg/dL Coronavirus (PCR) COVID-19 (SHAYY) (Negative) COVID-19 Clin Com Influenza Type A (PCR) Influenza Type B (PCR) RSV RNA Qual (PCR) <GERALD Lyons - Last Filed: 03/31/20 08:16> ECG Data Attestation: I personally reviewed and interpreted this ECG as follows: <John Mcfadden MD - Last Filed: 03/31/20 05:13> Interpretation: Normal sinus rhythm ventricular rate 76 normal axis normal intervals no acute ST T wave changes impression normal EKG <John Mcfadden MD - Last Filed: 03/31/20 05:13> Discharge Plan Discharge Clinical Impression: Depression Qualifiers: Depression Type: major depressive disorder Major depression recurrence: recurrent Active/Remission status: currently active Major depression episode severity: moderate Qualified Code(s): F33.1 - Major depressive disorder, recurrent, moderate Suicidal behavior Qualifiers: Attempted self-injury: without attempted self-injury Qualified Code(s): R45.89 - Other symptoms and signs involving emotional state <John Mcfadden MD - Last Filed: 03/31/20 05:13> Patient Disposition: Xfer Psychiatric Hosp <John Mcfadden MD - Last Filed: 03/31/20 05:13> Prescriptions: No Action atenolol 25 mg Tablet 25 mg PO DAILY RF: 0 dextroamphetamine-amphetamine [Adderall XR] 30 mg Capsule,Extended Release 24hr 30 mg PO BID@0830,1330 RF: 0 clonidine HCl 0.1 mg Tablet 0.1 mg PO BID PRN (Reason: Anxiety) RF: 0 lorazepam 1 mg Tablet 1 mg PO BID PRN (Reason: Anxiety) RF: 0 sertraline 100 mg Tablet 100 mg PO DAILY RF: 0 trazodone 100 mg Tablet 100 mg PO BEDTIME RF: 0 paliperidone 9 mg Tablet Extended Release 24hr 9 mg PO QAM RF: 0 Invega Sustenna 156 mg/mL syringe 156 mg IM QMONTH Qty: 1 RF: 0 acetaminophen 325 mg Tablet 650 mg PO Q6H PRN (Reason: HEADACHE/PAIN,MILD (SCALE 1-3)) Qty: 30 RF: 0 <John Mcfadden MD - Last Filed: 03/31/20 05:13>
--- NOTE | 2020-03-30 21:51 | PC.NURSE ---
VENANCIO faxed and called.
--- NOTE | 2020-03-30 21:58 | PC.NURSE ---
Pt currently denying active SI, laying in bed, allowing blood to be drawn by [facility]
[2020-03-30 22:36] LABS: COVID-19 Test Negative (Negative); IDNOW Serial# 9DD0AD1C
[2020-03-30 22:44] LABS: Amphetamine Screen Urine Not Detected (Not Detect); Barbiturates, Urine Not Detected (Not Detect); Benzodiazepines Screen Urine Not Detected (Not Detect); Cannabinoid Screen Urine Not Detected (Not Detect); Cocaine Screen Urine POSITIVE (Not Detect); Opiate Screen Urine Not Detected (Not Detect); Phencyclidine Screen Urine Not Detected (Not Detect)
--- NOTE | 2020-03-30 23:34 | PC.NURSE ---
Report received. PT is laying in bed quietly. Calm and cooperative. [facility] just arrived to see the PT.
[2020-03-31 00:28] LABS: Basophils Percent Auto 0.5 % (0-2); Eosinophils Absolute Auto 0.2 X10*3/uL (0.0-0.4); Eosinophils Percent Auto 2.7 % (0-4); Hemoglobin 14.5 g/dl (14.0-18.0); Imm Gran Abs Auto 0.04 X10*3/uL (0.00-0.03); Imm Gran Pct Auto 0.5 % (0.0-0.4); Lymphocytes Absolute Auto 2.5 X10*3/uL (1.2-4.9); Lymphocytes Percent Auto 31.5 % (20-40); MANUAL DIFF FLAG NO; Mean Corpuscular HGB Conc 33.7 g/dl (31.0-36.0); Mean Corpuscular Hemoglobin 29.3 pg (27.0-33.0); Mean Corpuscular Volume 86.9 fL (80-98); Mean Platelet Volume 11.2 fL (9.4-12.4); Monocytes Absolute Auto 0.6 X10*3/uL (0.1-1.2); Monocytes Percent Auto 7.8 % (2-11); Neutrophils Absolute Auto 4.5 X10*3/uL (2.0-8.3); Platelet Count 261 X10*3/uL (160-400); Red Blood Count 4.95 X10*6/uL (4.60-5.80); Red Cell Distribution Width 12.4 % (11.0-16.0); White Blood Count 7.8 X10*3/uL (4.8-10.8)
[2020-03-31 00:54] LABS: Ethanol < 10 mg/dL
[2020-03-31 00:58] LABS: Alanine Aminotransferase 32 U/L (0-40); Albumin Level 4.1 g/dL (3.5-5.0); Alkaline Phosphatase 90 U/L (39-117); Anion Gap 16 (12-20); Aspartate Amino Transferase 30 U/L (5-37); Bilirubin Direct 0.2 mg/dL (0.0-0.5); Bilirubin Total 0.4 mg/dL (0.0-1.0); Blood Urea Nitrogen 16 mg/dL (9-16); Calcium 8.6 mg/dL (8.4-10.2); Carbon Dioxide 20 mmol/L (22-29); Chloride 105 mmol/L (96-108); Creatinine Clr Calc Pharmacy 155.6; Estimated Glomerular Filt Rate > 60; Glucose Random 85 mg/dL (60-115); Potassium 4.2 mmol/l (3.3-5.1); Sodium 137 mmol/L (135-145); Total Protein 7.2 g/dL (6.5-8.0)
[2020-03-31 01:18] VITALS: BP 120/83; PULSE 96; RESP 20; TEMP 36.1; O2SAT 98
--- NOTE | 2020-03-31 01:56 | ECG_ITS ---
Test Reason : MEDICAL CLEARANCE Blood Pressure : / mmHG Vent. Rate : 076 BPM Atrial Rate : 076 BPM P-R Int : 130 ms QRS Dur : 092 ms QT Int : 412 ms P-R-T Axes : 059 022 054 degrees QTc Int : 463 ms Normal sinus rhythm Normal ECG When compared with ECG of 09-DEC-2019 12:49, No significant change was found Referred By: Alfredo Friedman Electronically Signed By:JOSE ANGEL AWAN MD
--- NOTE | 2020-03-31 08:19 | PC.NURSE ---
wating to hear from care team about placement on [facility]
[2020-03-31 10:19] VITALS: BP 128/74; PULSE 73; RESP 16; TEMP 36.7; O2SAT 97
--- NOTE | 2020-03-31 11:03 | PC.NURSE ---
Report received from Krista BARROS. Patient is resting comfortably in bed at this time. Respirations regular and even. Skin PWD. Patient has a been accepted to [facility], awaiting some discharges. Patient aware of plan of care. Awaiting nurse to nurse.
--- NOTE | 2020-03-31 11:37 | PC.NURSE ---
Nurse to nurse given to Alejandra Shea. Updated patient on plan to go to [facility] shortly.
[2020-03-31 15:01] VITALS: BP 142/76; PULSE 72
[2020-03-31] MEDS: LORazepam 1 MG TABLET PO (15:01)
[2020-03-31] MEDS: Sertraline HCL 100 MG TABLET PO (15:01)
[2020-03-31] MEDS: atenoloL 25 MG TABLET PO (15:01)
[2020-03-31 15:05] VITALS: BP 142/76; PULSE 72; RESP 16; TEMP 36.2; O2SAT 99
[2020-03-31 15:06] VITALS: BMI 34.1
--- NOTE | 2020-03-31 15:23 | PC.ADMIT ---
THIS IS ONE OF MULTIPLE ADMISSIONS FOR THIS 39 Y.O. MALE TO [facility]. ARRIVED ON UNIT AT 1215 AND PLACED ON 5 MIN SAFETY CHECKS. SELF PRESENTED TO [facility] AND SEEN BY CRISIS. REFERRED TO [facility] WITH DX OF MAJOR DEPRESSIVE D/OM RECURRENT, SEVERE. PTSD, ADHD. PRECIPITATING FACTORS TO ADMISSION: PT REPORTED INCREASED DEPRESSION AND SI WITH PLAN TO HANG SELF. REPORTED AH. REPORTED NON-COMPLIANCE WITH MEDS SINCE FEBRUARY. INTAKE REPORTS OF HIS UNCLE WORSENED HIS SYMPTOMS. PT REPORTS OF FATHER ON 03/21/20 TO THIS [employer] DR[employer]. PT NOW FEELING VERBAL AGGRESSION TOWARDS MOTHER. DENIES CURRENT SI/HI. REPORTS AH CURRENTLY AND VH AT TIMES. DENIES PHYSICAL DISCOMFORT. CONDITIONAL VOLUNTARY STATUS. ADMISSION ORDERS RECEIVED FROM DR LINN. PT NOW ON 15 MIN SAFETY CHECKS. MEDS VERIFIED WITH [facility].
[2020-03-31 18:00] VITALS: BP 133/93; PULSE 90; TEMP 36.3
[2020-04-01] MEDS: traZODone HCL 50 MG TABLET PO ×2 (01:33→20:33)
[2020-04-01] MEDS: LORazepam 1 MG TABLET PO ×3 (01:33→19:16)
[2020-04-01] MEDS: hydrOXYzine HCL 25 MG TABLET PO ×2 (01:33→20:33)
[2020-04-01 06:30] VITALS: BP 95/52; PULSE 63; RESP 18; TEMP 36.3; O2SAT 97
[2020-04-01 09:39] VITALS: BP 117/83; PULSE 101
[2020-04-01] MEDS: atenoloL 25 MG TABLET PO (09:39)
[2020-04-01] MEDS: Sertraline HCL 100 MG TABLET PO (09:41)
[2020-04-01] MEDS: Paliperidone ER 3 MG TAB.ER.24 PO (09:42)
[2020-04-01 09:44] VITALS: BP 117/83; PULSE 101
[2020-04-01] MEDS: Nicotine 14 MG PATCH.TD24 TRANSDERMA (13:06)
[2020-04-01 19:18] VITALS: BP 149/83; PULSE 92; TEMP 36.4
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
[2020-04-02 06:24] VITALS: BP 126/66; PULSE 78; RESP 16; TEMP 36.9; O2SAT 99
[2020-04-02] MEDS: Nicotine 14 MG PATCH.TD24 TRANSDERMA (08:55)
[2020-04-02 08:56] VITALS: BP 186/66; PULSE 88
[2020-04-02] MEDS: Sertraline HCL 100 MG TABLET PO (08:56)
[2020-04-02] MEDS: atenoloL 25 MG TABLET PO (08:56)
[2020-04-02] MEDS: Paliperidone ER 3 MG TAB.ER.24 6 MG PO (08:58)
[2020-04-02] MEDS: LORazepam 1 MG TABLET PO ×3 (09:49→18:14)
[2020-04-02 12:16] VITALS: BP 121/86; PULSE 89
[2020-04-02] MEDS: cloNIDine HCL 0.1 MG TABLET PO ×2 (12:16→20:07)
[2020-04-02 18:00] VITALS: BP 118/74; PULSE 80; TEMP 36.8
[2020-04-02] MEDS: Paliperidone ER 3 MG TAB.ER.24 PO (18:14)
[2020-04-02] MEDS: traZODone HCL 50 MG TABLET PO (20:06)
[2020-04-02] MEDS: hydrOXYzine HCL 25 MG TABLET PO (20:06)
[2020-04-02 20:07] VITALS: BP 121/84; PULSE 96
--- NOTE | 2020-04-02 22:44 | HO.PSYCHPN ---
Subjective Subjective Date of Service: 04/03/20 Reason For Visit: depression ?od sub abuse Subjective Notes: 3 Day Interim History: maya monteiro pt has inc aud hallucinations taking invega angry about not having Medication Compliance: Yes Attending Groups: No Mental Status Exam Mental Status Exam Patient Appearance: Unkempt Patient Orientation: Person, Place, Time and Situation Level of Consciousness: Awake Patient Behavior: Belligerent, Anxious, Avoidant, Impulsive and Poor Eye Contact Mood Description: Hostile, Labile, Angry and Sad Affect Description: Labile Patient Cognition Impaired: No Ability to Follow Directions: Fair Speech Pattern: Perseverating and Pressured Hallucinations: Auditory (guarded ) Delusions: Paranoid Ideation Thought Process: Intact and Rumination Thought Content: positive for [place], positive for Obsessional Thoughts and positive for Preoccupation Depressive Symptoms: Increased Anxiety, Increased Irritability, Thoughts of /Suicide and Difficulty Concentrating Judgement: Poor Judgement and Insight: angry demanding he be put on stimulants and lorazepam. Limited insight regarding his history of substance use or positive cocaine Diagnostics Vital Signs (24Hr): Vital Signs - 24 hr 04/02/20 06:24 04/02/20 08:56 04/02/20 12:16 Temperature 98.4 F Pulse Rate 78 88 89 Respiratory Rate 16 Blood Pressure 126/66 186/66 H 121/86 Pulse Oximetry 99 04/02/20 18:00 04/02/20 20:07 Temperature 98.3 F Pulse Rate 80 96 Respiratory Rate Blood Pressure 118/74 121/84 Pulse Oximetry Body Mass Index 34.1 Labs Results: 03/31/20 00:20 03/31/20 00:20 Medications Medications Current Medications Generic Name Dose Route Start Last Admin Trade Name Jairq PRN Reason Stop Dose Admin Acetaminophen 650 mg 03/31/20 12:30 Acetaminophen 325 Mg Tablet PO Q6H PRN HEADACHE/PAIN,MILD (SCALE 1-3) Acetaminophen 650 mg 03/31/20 12:30 Acetaminophen 325 Mg Tablet PO Q6H PRN Headache/Pain Mild Scale (1-3) Al Hydroxide/Mg Hydroxide 30 ml 03/31/20 12:30 Magnesium Hydrox/Alum Hydrox 30 Ml Oral.Susp PO Q6H PRN Heartburn/Nausea Atenolol 25 mg 03/31/20 12:30 04/02/20 08:56 Atenolol 25 Mg Tablet PO 25 mg DAILY RISSA Administration Protocol Clonidine HCl 0.1 mg 03/31/20 12:30 04/02/20 20:07 Clonidine Hcl 0.1 Mg Tablet PO 0.1 mg BID PRN Administration Anxiety Protocol Hydroxyzine HCl 25 mg 03/31/20 12:30 04/02/20 20:06 Hydroxyzine Hcl 25 Mg Tablet PO 25 mg BEDTIME PRN Administration Anxiety Lorazepam 1 mg 04/01/20 23:30 04/02/20 15:40 Lorazepam 1 Mg Tablet PO 1 mg BID PRN Administration anxiety/restlessness Magnesium Hydroxide 30 ml 03/31/20 12:30 Milk Of Magnesia 30 Ml Oral.Susp PO DAILY PRN Constipation Nicotine 14 mg 04/01/20 10:45 04/02/20 08:55 Nicotine 14 Mg Patch.Td24 TRANSDERMA 14 mg DAILY RISSA Administration Nicotine Polacrilex 2 mg 03/31/20 12:30 Nicotine Polacrilex 2 Mg Gum BUCCAL Q2H PRN Nicotine Cravings Nicotine Polacrilex 2 mg 04/01/20 10:44 Nicotine Polacrilex 2 Mg Gum BUCCAL Q2H PRN Nicotine Cravings Paliperidone 6 mg 04/02/20 09:00 04/02/20 08:58 Paliperidone Er 3 Mg Tab.Er.24 PO 6 mg DAILY RISSA Administration Sertraline HCl 100 mg 03/31/20 12:30 04/02/20 08:56 Sertraline Hcl 100 Mg Tablet PO 100 mg DAILY RISSA Administration Trazodone HCl 50 mg 03/31/20 12:30 04/02/20 20:06 Trazodone Hcl 50 Mg Tablet PO 50 mg BEDTIME PRN Administration Insomnia Allergies Allergies Allergy/AdvReac Type Severity Reaction Status Date / Time tomato [Tomato] Allergy Severe DIFFICULTY Verified 01/09/20 15:59 BREATHING, swelling of face and throat divalproex sodium Allergy Mild SEIZURES Verified 01/09/20 15:59 [From Depakote] olanzapine [From Zyprexa] Allergy Mild NIPPLES Verified 01/09/20 15:59 LEAK risperidone [From Risperdal] Allergy Mild UNKNOWN Verified 01/09/20 15:59 quetiapine [From SEROQUEL] Allergy Unknown HEART Verified 01/09/20 15:59 PALPITATIONS lithium [[place]] AdvReac Mild STOMACH Verified 01/09/20 15:59 PAIN aripiprazole [From ABILIFY] AdvReac Unknown DYSTONIA Verified 01/09/20 15:59 Assessment & Plan Assessment & Plan (1) Passive suicidal ideations: Status: Acute Code(s): R45.851 - Suicidal ideations (2) Cocaine use disorder: Status: Acute Code(s): F14.10 - Cocaine abuse, uncomplicated (3) Post traumatic stress disorder (PTSD): Status: Acute Code(s): F43.10 - Post-traumatic stress disorder, unspecified (4) Schizoaffective disorder: Qualifiers: Schizoaffective disorder type: depressive Qualified Code(s): F25.1 - Schizoaffective disorder, depressive type Status: Chronic Code(s): F25.9 - Schizoaffective disorder, unspecified (5) ADHD: Status: Acute Code(s): F90.9 - Attention-deficit hyperactivity disorder, unspecified type Assessment and Plan: inc invega as tolerated encourage sobriety Greater than 50% of the session was spent on counseling and/or coordination of care
[2020-04-03 06:26] VITALS: BP 96/59; PULSE 73; RESP 14; TEMP 36.8; O2SAT 99
[2020-04-03] MEDS: LORazepam 1 MG TABLET PO ×2 (08:15→13:22)
[2020-04-03] MEDS: Sertraline HCL 100 MG TABLET PO (10:32)
[2020-04-03 10:33] VITALS: BP 130/87; PULSE 104
[2020-04-03] MEDS: Nicotine 14 MG PATCH.TD24 TRANSDERMA (10:33)
[2020-04-03] MEDS: Paliperidone ER 3 MG TAB.ER.24 6 MG PO (10:33)
[2020-04-03] MEDS: atenoloL 25 MG TABLET PO (10:33)
--- NOTE | 2020-04-03 11:40 | HO.PSYCHPN ---
Subjective Subjective Date of Service: 04/03/20 Reason For Visit: depression ?od sub abuse Subjective Notes: Conditional Voluntary Interim History: the patient was more forthcoming cooperative has been chronically on stimulants for ADD times many years if prior admissions patient was generally continued on stimulants will try and resume low dose and continue Invega patient states on Invega Systane a he had chronic headaches Medication Compliance: Yes Side effects from medications: No Mental Status Exam Mental Status Exam Narrative: patient with auditory hallucinations disturbing to him non command chronic commentary disturbing depressed irritable Patient Appearance: Appropriate Patient Orientation: Person, Place, Time and Situation Level of Consciousness: Awake Patient Behavior: Appropriate and Cooperative Mood Description: Withdrawn, Constricted, Depressed and Blunted Diagnostics Vital Signs (24Hr): Vital Signs - 24 hr 04/02/20 12:16 04/02/20 18:00 04/02/20 20:07 Temperature 98.3 F Pulse Rate 89 80 96 Respiratory Rate Blood Pressure 121/86 118/74 121/84 Pulse Oximetry 04/03/20 06:26 04/03/20 10:33 Temperature 98.2 F Pulse Rate 73 104 H Respiratory Rate 14 Blood Pressure 96/59 L 130/87 Pulse Oximetry 99 Body Mass Index 34.1 Labs Results: 03/31/20 00:20 03/31/20 00:20 Medications Medications Current Medications Generic Name Dose Route Start Last Admin Trade Name Jairq PRN Reason Stop Dose Admin Acetaminophen 650 mg 03/31/20 12:30 Acetaminophen 325 Mg Tablet PO Q6H PRN Headache/Pain Mild Scale (1-3) Al Hydroxide/Mg Hydroxide 30 ml 03/31/20 12:30 Magnesium Hydrox/Alum Hydrox 30 Ml Oral.Susp PO Q6H PRN Heartburn/Nausea Atenolol 25 mg 03/31/20 12:30 04/03/20 10:33 Atenolol 25 Mg Tablet PO 25 mg DAILY RISSA Administration Protocol Clonidine HCl 0.1 mg 03/31/20 12:30 04/02/20 20:07 Clonidine Hcl 0.1 Mg Tablet PO 0.1 mg BID PRN Administration Anxiety Protocol Hydroxyzine HCl 25 mg 03/31/20 12:30 04/02/20 20:06 Hydroxyzine Hcl 25 Mg Tablet PO 25 mg BEDTIME PRN Administration Anxiety Lorazepam 1 mg 04/01/20 23:30 04/03/20 08:15 Lorazepam 1 Mg Tablet PO 1 mg BID PRN Administration anxiety/restlessness Magnesium Hydroxide 30 ml 03/31/20 12:30 Milk Of Magnesia 30 Ml Oral.Susp PO DAILY PRN Constipation Nicotine 14 mg 04/01/20 10:45 04/03/20 10:33 Nicotine 14 Mg Patch.Td24 TRANSDERMA 14 mg DAILY RISSA Administration Nicotine Polacrilex 2 mg 03/31/20 12:30 Nicotine Polacrilex 2 Mg Gum BUCCAL Q2H PRN Nicotine Cravings Nicotine Polacrilex 2 mg 04/01/20 10:44 Nicotine Polacrilex 2 Mg Gum BUCCAL Q2H PRN Nicotine Cravings Paliperidone 6 mg 04/02/20 09:00 04/03/20 10:33 Paliperidone Er 3 Mg Tab.Er.24 PO 6 mg DAILY RISSA Administration Sertraline HCl 100 mg 03/31/20 12:30 04/03/20 10:32 Sertraline Hcl 100 Mg Tablet PO 100 mg DAILY RISSA Administration Trazodone HCl 50 mg 03/31/20 12:30 04/02/20 20:06 Trazodone Hcl 50 Mg Tablet PO 50 mg BEDTIME PRN Administration Insomnia Allergies Allergies Allergy/AdvReac Type Severity Reaction Status Date / Time tomato [Tomato] Allergy Severe DIFFICULTY Verified 01/09/20 15:59 BREATHING, swelling of face and throat divalproex sodium Allergy Mild SEIZURES Verified 01/09/20 15:59 [From Depakote] olanzapine [From Zyprexa] Allergy Mild NIPPLES Verified 01/09/20 15:59 LEAK risperidone [From Risperdal] Allergy Mild UNKNOWN Verified 01/09/20 15:59 quetiapine [From SEROQUEL] Allergy Unknown HEART Verified 01/09/20 15:59 PALPITATIONS lithium [[place]] AdvReac Mild STOMACH Verified 01/09/20 15:59 PAIN aripiprazole [From ABILIFY] AdvReac Unknown DYSTONIA Verified 01/09/20 15:59 Assessment & Plan Assessment & Plan (1) Passive suicidal ideations: Status: Acute Code(s): R45.851 - Suicidal ideations (2) Post traumatic stress disorder (PTSD): Status: Acute Code(s): F43.10 - Post-traumatic stress disorder, unspecified (3) Schizoaffective disorder: Qualifiers: Schizoaffective disorder type: depressive Qualified Code(s): F25.1 - Schizoaffective disorder, depressive type Status: Chronic Code(s): F25.9 - Schizoaffective disorder, unspecified (4) ADHD: Status: Acute Code(s): F90.9 - Attention-deficit hyperactivity disorder, unspecified type Assessment and Plan: continue Invega patient states does not do well on long-acting injectable Invega start lower doses Adderall Greater than 50% of the session was spent on counseling and/or coordination of care
[2020-04-03 18:00] VITALS: BP 111/79; PULSE 106; TEMP 36.2
[2020-04-03 18:54] VITALS: BP 111/79; PULSE 108
[2020-04-03] MEDS: cloNIDine HCL 0.1 MG TABLET PO (18:54)
[2020-04-03] MEDS: traZODone HCL 50 MG TABLET PO (21:40)
[2020-04-03] MEDS: hydrOXYzine HCL 25 MG TABLET PO (21:40)
[2020-04-04 06:00] VITALS: BP 140/84; PULSE 85; TEMP 37.1
[2020-04-04] MEDS: Sertraline HCL 100 MG TABLET PO (08:38)
[2020-04-04] MEDS: Amphetamine Mixed Salts 10 MG TABLET PO ×2 (08:38→12:37)
[2020-04-04] MEDS: Paliperidone ER 3 MG TAB.ER.24 6 MG PO (08:38)
[2020-04-04 08:39] VITALS: BP 140/84; PULSE 85
[2020-04-04] MEDS: atenoloL 25 MG TABLET PO (08:39)
[2020-04-04] MEDS: Nicotine 14 MG PATCH.TD24 TRANSDERMA (08:39)
[2020-04-04] MEDS: LORazepam 1 MG TABLET PO ×2 (12:37→16:20)
[2020-04-04 16:20] VITALS: BP 132/78; PULSE 91; TEMP 36.4
[2020-04-04] MEDS: hydrOXYzine HCL 25 MG TABLET PO (20:09)
[2020-04-04] MEDS: traZODone HCL 50 MG TABLET 100 MG PO (20:09)
[2020-04-04 20:10] VITALS: BP 116/71; PULSE 104
[2020-04-04] MEDS: cloNIDine HCL 0.1 MG TABLET PO (20:10)
--- NOTE | 2020-04-04 23:05 | P.PNPSI_ITS ---
Subjective Subjective Date of Service: 04/04/20 Reason For Visit: depression ?od sub abuse Subjective Notes: Conditional Voluntary Interim History: Pt with aud hallucinations but less labile less irritable Medication Compliance: Yes Side effects from medications: No Mental Status Exam Mental Status Exam Narrative: patient with auditory hallucinations disturbing to him non command chronic commentary disturbing depressed irritable Patient Appearance: Appropriate Patient Orientation: Person, Place, Time and Situation Level of Consciousness: Awake Patient Behavior: Appropriate and Cooperative Mood Description: Withdrawn, Constricted, Depressed and Blunted Affect Description: Blunted and Flat Hallucinations: Auditory Delusions: Paranoid Ideation Judgement and Insight: improving insight Diagnostics Vital Signs (24Hr): Vital Signs - 24 hr 04/04/20 06:00 04/04/20 08:39 04/04/20 16:20 Temperature 98.8 F 97.5 F Pulse Rate 85 85 91 Blood Pressure 140/84 H 140/84 H 132/78 04/04/20 20:10 Temperature Pulse Rate 104 H Blood Pressure 116/71 Body Mass Index 34.1 Labs Results: 03/31/20 00:20 03/31/20 00:20 Medications Medications Current Medications Generic Name Dose Route Start Last Admin Trade Name Freq PRN Reason Stop Dose Admin Acetaminophen 650 mg 03/31/20 12:30 Acetaminophen 325 Mg Tablet PO Q6H PRN Headache/Pain Mild Scale (1-3) Al Hydroxide/Mg Hydroxide 30 ml 03/31/20 12:30 Magnesium Hydrox/Alum Hydrox 30 Ml Oral.Susp PO Q6H PRN Heartburn/Nausea Amphetamine/Dextroamphetamine 10 mg 04/04/20 08:30 04/04/20 12:37 Amphetamine Mixed Salts 10 Mg Tablet PO 10 mg BID@0830,1330 RISSA Administration Atenolol 25 mg 03/31/20 12:30 04/04/20 08:39 Atenolol 25 Mg Tablet PO 25 mg DAILY RISSA Administration Protocol Clonidine HCl 0.1 mg 03/31/20 12:30 04/04/20 20:10 Clonidine Hcl 0.1 Mg Tablet PO 0.1 mg BID PRN Administration Anxiety Protocol Hydroxyzine HCl 25 mg 03/31/20 12:30 04/04/20 20:09 Hydroxyzine Hcl 25 Mg Tablet PO 25 mg BEDTIME PRN Administration Anxiety Lorazepam 1 mg 04/01/20 23:30 04/04/20 16:20 Lorazepam 1 Mg Tablet PO 1 mg BID PRN Administration anxiety/restlessness Magnesium Hydroxide 30 ml 03/31/20 12:30 Milk Of Magnesia 30 Ml Oral.Susp PO DAILY PRN Constipation Nicotine 14 mg 04/01/20 10:45 04/04/20 08:39 Nicotine 14 Mg Patch.Td24 TRANSDERMA 14 mg DAILY RISSA Administration Nicotine Polacrilex 2 mg 03/31/20 12:30 Nicotine Polacrilex 2 Mg Gum BUCCAL Q2H PRN Nicotine Cravings Nicotine Polacrilex 2 mg 04/01/20 10:44 Nicotine Polacrilex 2 Mg Gum BUCCAL Q2H PRN Nicotine Cravings Paliperidone 6 mg 04/02/20 09:00 04/04/20 08:38 Paliperidone Er 3 Mg Tab.Er.24 PO 6 mg DAILY RISSA Administration Sertraline HCl 100 mg 03/31/20 12:30 04/04/20 08:38 Sertraline Hcl 100 Mg Tablet PO 100 mg DAILY RISSA Administration Trazodone HCl 100 mg 04/04/20 11:16 04/04/20 20:09 Trazodone Hcl 50 Mg Tablet PO 100 mg BEDTIME PRN Administration Insomnia Allergies Allergies Allergy/AdvReac Type Severity Reaction Status Date / Time tomato [Tomato] Allergy Severe DIFFICULTY Verified 01/09/20 15:59 BREATHING, swelling of face and throat divalproex sodium Allergy Mild SEIZURES Verified 01/09/20 15:59 [From Depakote] olanzapine [From Zyprexa] Allergy Mild NIPPLES Verified 01/09/20 15:59 LEAK risperidone [From Risperdal] Allergy Mild UNKNOWN Verified 01/09/20 15:59 quetiapine [From SEROQUEL] Allergy Unknown HEART Verified 01/09/20 15:59 PALPITATIONS lithium [[place]] AdvReac Mild STOMACH Verified 01/09/20 15:59 PAIN aripiprazole [From ABILIFY] AdvReac Unknown DYSTONIA Verified 01/09/20 15:59 Assessment & Plan Assessment & Plan (1) Passive suicidal ideations: Status: Acute Code(s): R45.851 - Suicidal ideations (2) Cocaine use disorder: Status: Acute Code(s): F14.10 - Cocaine abuse, uncomplicated (3) Post traumatic stress disorder (PTSD): Status: Acute Code(s): F43.10 - Post-traumatic stress disorder, unspecified (4) Schizoaffective disorder: Qualifiers: Schizoaffective disorder type: depressive Qualified Code(s): F25.1 - Schizoaffective disorder, depressive type Status: Chronic Code(s): F25.9 - Schizoaffective disorder, unspecified Assessment and Plan: cont invega sertraline Greater than 50% of the session was spent on counseling and/or coordination of care
[2020-04-05] MEDS: LORazepam 1 MG TABLET PO ×2 (04:32→15:49)
[2020-04-05 06:32] VITALS: BP 124/64; PULSE 84; RESP 16; TEMP 36.8; O2SAT 100
[2020-04-05 08:35] VITALS: BP 124/64; PULSE 84
[2020-04-05] MEDS: Paliperidone ER 3 MG TAB.ER.24 6 MG PO (08:35)
[2020-04-05] MEDS: atenoloL 25 MG TABLET PO (08:35)
[2020-04-05] MEDS: Amphetamine Mixed Salts 10 MG TABLET PO ×2 (08:35→12:32)
[2020-04-05] MEDS: Sertraline HCL 100 MG TABLET PO (08:36)
--- NOTE | 2020-04-05 11:35 | HO.PSYCHPN ---
Subjective Subjective Date of Service: 04/05/20 Reason For Visit: depression ?od sub abuse Subjective Notes: Conditional Voluntary and 3 Day Interim History: the patient was come future oriented and cooperative when seen. The unit 5 quite triggering patient does have a history of PTSD. No adverse is effects noted from restarting Adderall he. He patient was accepting of with and psychotic and he showed marked improvement and stability of mood and decrease in hallucination of Medication Compliance: Yes Side effects from medications: No Mental Status Exam Mental Status Exam Narrative: patient with auditory hallucinations disturbing to him non command chronic commentary disturbing depressed irritable Patient Appearance: Appropriate Patient Orientation: Person, Place, Time and Situation Level of Consciousness: Awake Patient Behavior: Appropriate and Cooperative Mood Description: Withdrawn, Constricted, Depressed and Blunted Affect Description: Blunted and Flat Hallucinations: Auditory Delusions: Paranoid Ideation Judgement and Insight: improving insight Diagnostics Vital Signs (24Hr): Vital Signs - 24 hr 04/04/20 16:20 04/04/20 20:10 04/05/20 06:32 Temperature 97.5 F 98.2 F Pulse Rate 91 104 H 84 Respiratory Rate 16 Blood Pressure 132/78 116/71 124/64 Pulse Oximetry 100 04/05/20 08:35 Temperature Pulse Rate 84 Respiratory Rate Blood Pressure 124/64 Pulse Oximetry Body Mass Index 34.1 Labs Results: 03/31/20 00:20 03/31/20 00:20 Medications Medications Current Medications Generic Name Dose Route Start Last Admin Trade Name Freq PRN Reason Stop Dose Admin Acetaminophen 650 mg 03/31/20 12:30 Acetaminophen 325 Mg Tablet PO Q6H PRN Headache/Pain Mild Scale (1-3) Al Hydroxide/Mg Hydroxide 30 ml 03/31/20 12:30 Magnesium Hydrox/Alum Hydrox 30 Ml Oral.Susp PO Q6H PRN Heartburn/Nausea Amphetamine/Dextroamphetamine 10 mg 04/04/20 08:30 04/05/20 08:35 Amphetamine Mixed Salts 10 Mg Tablet PO 10 mg BID@0830,1330 RISSA Administration Atenolol 25 mg 03/31/20 12:30 04/05/20 08:35 Atenolol 25 Mg Tablet PO 25 mg DAILY RISSA Administration Protocol Clonidine HCl 0.1 mg 03/31/20 12:30 04/04/20 20:10 Clonidine Hcl 0.1 Mg Tablet PO 0.1 mg BID PRN Administration Anxiety Protocol Hydroxyzine HCl 25 mg 03/31/20 12:30 04/04/20 20:09 Hydroxyzine Hcl 25 Mg Tablet PO 25 mg BEDTIME PRN Administration Anxiety Lorazepam 1 mg 04/01/20 23:30 04/05/20 04:32 Lorazepam 1 Mg Tablet PO 1 mg BID PRN Administration anxiety/restlessness Magnesium Hydroxide 30 ml 03/31/20 12:30 Milk Of Magnesia 30 Ml Oral.Susp PO DAILY PRN Constipation Nicotine 14 mg 04/01/20 10:45 04/05/20 08:34 Nicotine 14 Mg Patch.Td24 TRANSDERMA 14 mg DAILY RISSA Administration Nicotine Polacrilex 2 mg 03/31/20 12:30 Nicotine Polacrilex 2 Mg Gum BUCCAL Q2H PRN Nicotine Cravings Nicotine Polacrilex 2 mg 04/01/20 10:44 Nicotine Polacrilex 2 Mg Gum BUCCAL Q2H PRN Nicotine Cravings Paliperidone 6 mg 04/02/20 09:00 04/05/20 08:35 Paliperidone Er 3 Mg Tab.Er.24 PO 6 mg DAILY RISSA Administration Sertraline HCl 100 mg 03/31/20 12:30 04/05/20 08:36 Sertraline Hcl 100 Mg Tablet PO 100 mg DAILY RISSA Administration Trazodone HCl 100 mg 04/04/20 11:16 04/04/20 20:09 Trazodone Hcl 50 Mg Tablet PO 100 mg BEDTIME PRN Administration Insomnia Allergies Allergies Allergy/AdvReac Type Severity Reaction Status Date / Time tomato [Tomato] Allergy Severe DIFFICULTY Verified 01/09/20 15:59 BREATHING, swelling of face and throat divalproex sodium Allergy Mild SEIZURES Verified 01/09/20 15:59 [From Depakote] olanzapine [From Zyprexa] Allergy Mild NIPPLES Verified 01/09/20 15:59 LEAK risperidone [From Risperdal] Allergy Mild UNKNOWN Verified 01/09/20 15:59 quetiapine [From SEROQUEL] Allergy Unknown HEART Verified 01/09/20 15:59 PALPITATIONS lithium [[place]] AdvReac Mild STOMACH Verified 01/09/20 15:59 PAIN aripiprazole [From ABILIFY] AdvReac Unknown DYSTONIA Verified 01/09/20 15:59 Assessment & Plan Assessment & Plan (1) Post traumatic stress disorder (PTSD): Status: Acute Code(s): F43.10 - Post-traumatic stress disorder, unspecified (2) Schizoaffective disorder: Qualifiers: Schizoaffective disorder type: depressive Qualified Code(s): F25.1 - Schizoaffective disorder, depressive type Status: Chronic Code(s): F25.9 - Schizoaffective disorder, unspecified (3) ADHD: Status: Acute Code(s): F90.9 - Attention-deficit hyperactivity disorder, unspecified type Assessment and Plan: continue plan of care patient states long-acting injectable with Brown gave him regular headaches he wishes to continue with p.o. hopefully if his not for non compliance Greater than 50% of the session was spent on counseling and/or coordination of care
[2020-04-05 12:32] VITALS: BP 127/79; PULSE 91
[2020-04-05] MEDS: cloNIDine HCL 0.1 MG TABLET PO ×2 (12:32→20:39)
[2020-04-05 15:51] VITALS: BP 130/75; PULSE 99; TEMP 36.2
[2020-04-05] MEDS: traZODone HCL 50 MG TABLET 100 MG PO (20:39)
[2020-04-05] MEDS: hydrOXYzine HCL 25 MG TABLET PO (20:40)
[2020-04-06 06:10] VITALS: BP 114/65; PULSE 94; RESP 16; TEMP 36.3; O2SAT 100
[2020-04-06 08:31] VITALS: BP 114/65; PULSE 94
[2020-04-06] MEDS: Paliperidone ER 3 MG TAB.ER.24 6 MG PO (08:31)
[2020-04-06] MEDS: LORazepam 1 MG TABLET PO (08:31)
[2020-04-06] MEDS: atenoloL 25 MG TABLET PO (08:31)
[2020-04-06] MEDS: Sertraline HCL 100 MG TABLET PO (08:32)
[2020-04-06] MEDS: Nicotine 14 MG PATCH.TD24 TRANSDERMA (08:32)
[2020-04-06] MEDS: Amphetamine Mixed Salts 10 MG TABLET PO ×2 (09:28→12:32)
[2020-04-06] MEDS: Naloxone HCl Nasal TAKE HOME 4 MG SPRAY NOSTRILALT (12:31)
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
== END 2020-04-06 13:56 | disposition home or self-care (01) | DRG 750 ==
LOC: HO.ED 03-31 05:14 → HO.PM5 03-31 11:53
PROVIDERS: Admitting Provider Psychiatry & Neurology Psychiatry; Emergency Provider Internal Medicine; PCP Family Medicine; Visit Provider Psychiatry & Neurology Psychiatry
DX: F25.1 Schizoaffective disorder, depressive type (principal); R45.851 Suicidal ideations; F43.10 Post-traumatic stress disorder, unspecified; F90.9 Attention-deficit hyperactivity disorder, unspecified type; F14.10 Cocaine abuse, uncomplicated; Z20.828 Contact with and (suspected) exposure to other viral communicable diseases; Z79.899 Other long term (current) drug therapy
CPT/HCPCS: 36415; 80048; 80076; 80307; 80320; 85025; 87635; 90792; 93005; 99232; 99239; 99285

== ENCOUNTER 2020-08-24 14:22 | Emergency (ER) | payer OTHER, SELFPAY ==
--- NOTE | ~2020-08-24 | XR_ITS ---
EXAMINATION: XR HAND, LEFT CLINICAL INFORMATION: Redness and swelling and pain. Evaluate for foreign body. COMPARISON: None TECHNIQUE: PA, lateral, and oblique views of the left hand. FINDINGS: Bone alignment is normal. No fracture or dislocation is seen. The joint spaces are normal. There is diffuse soft tissue swelling. No radiopaque soft tissue foreign body is seen. XR/XR hand LT min 3V IMPRESSION: Diffuse soft tissue swelling. No foreign body seen.
[2020-08-24 14:58] VITALS: BP 145/93; PULSE 115; RESP 18; TEMP 37; O2SAT 97; BMI 31.1
--- NOTE | 2020-08-24 15:39 | ED_ITS ---
HPI - Skin/Abscess/Foreign Bdy General Chief complaint: Skin/Abscess/Foreign Body Stated complaint: swollen hand Time Seen by Provider: 08/24/20 15:37 Source: patient Mode of arrival: ambulatory Limitations: no limitations History of Present Illness HPI narrative: 40 y/o male with history of IVDA presents to the ED with left dorsal hand redness, pain and swelling that started yesterday. He uses heroin daily and went to the [facility] for detox but they will not take him until he was evaluated. He reports the redness is worse today and localized to the top of his hand. No pain with flexion or extension of his fingers or wrist. No fever, no chills. No drainage. Last use was this morning, he snorted the heroin. MD complaint: abscess/boil Onset (ago): day(s) (1) Tetanus up to date: yes Location: L hand Severity: moderate Quality: aching Pain Consistency: constant Relieving factors: none Exacerbating factors: palpation Context: IVDA Associated symptoms: denies other symptoms Treatments prior to arrival: none Related Data Previous Rx's Medication Instructions Recorded acetaminophen 650 mg PO Q6H PRN #30 tab 01/10/20 atenolol 25 mg PO DAILY #30 tab 04/06/20 dextroamphetamine-amphetamine 20 mg PO BID@0830,1330 #60 tab 04/06/20 hydroxyzine HCl 25 mg PO BEDTIME PRN #30 tab 04/06/20 nicotine 14 mg TRANSDERMAL DAILY #21 ea 04/06/20 nicotine (polacrilex) 2 mg BUCCAL Q2H PRN #90 ea 04/06/20 clonidine HCl 0.1 mg PO BID PRN #60 tab 05/08/20 hydroxyzine HCl 25 mg PO BEDTIME #30 tab 05/08/20 lorazepam 1 mg PO BID PRN #30 tab 05/08/20 paliperidone 9 mg PO QAM #30 tab 05/08/20 sertraline 100 mg PO DAILY #30 tab 05/08/20 cephalexin 500 mg PO Q6H 10 Days #40 cap 08/24/20 sulfamethoxazole-trimethoprim 1 tab PO Q12H #14 tab 08/24/20 [Bactrim DS] Allergies Allergy/AdvReac Type Severity Reaction Status Date / Time tomato [Tomato] Allergy Severe DIFFICULTY Verified 08/24/20 14:58 BREATHING, swelling of face and throat divalproex sodium Allergy Mild SEIZURES Verified 08/24/20 14:58 [From Depakote] olanzapine [From Zyprexa] Allergy Mild NIPPLES Verified 08/24/20 14:58 LEAK risperidone [From Risperdal] Allergy Mild UNKNOWN Verified 08/24/20 14:58 quetiapine [From SEROQUEL] Allergy Unknown HEART Verified 08/24/20 14:58 PALPITATIONS lithium [[place]] AdvReac Mild STOMACH Verified 08/24/20 14:58 PAIN aripiprazole [From ABILIFY] AdvReac Unknown DYSTONIA Verified 08/24/20 14:58 Review of Systems Review of Systems: Constitutional: No Fever, No Chills Cardiovascular: No Chest Pain, No SOB Respiratory: No Cough, No Sputum Gastrointestinal: No Nausea, No Vomiting Musculoskeletal: No joint pain, + Myalgias Skin: + Skin Lesions, No rash Neuro: No Weakness, No Numbness Psych: No Anxiety/Panic, + Depression, No SI Heme/Lymph: No Bruising, No Lymphadenopathy PMFSH Past Medical History Attestation statement: The following information was validated with the patient. Medical History Cocaine use disorder HTN (hypertension) OCD (obsessive compulsive disorder) Panic anxiety syndrome Post traumatic stress disorder (PTSD) Social History Social History Household Members: Family Household Members Other:: MOTHER Housing: House Alcohol intake: unknown Smoking Status: Current every day smoker Tobacco Type: Cigarette Packs Per Day: 0.33 Cigarettes Per Day: 6.6 Years Smoked: 30 Second Hand Smoke Exposure: No Substance Use Type: Crack/Cocaine Advance Directives: No Advance Directives Information Provided: Yes service: No Sexual orientation: unable to assess Physical Exam Vital Signs: Vital Signs: Last Vital Signs Temp 98.6 F 08/24/20 14:58 Pulse 115 H 08/24/20 14:58 Resp 18 08/24/20 14:58 BP 145/93 H 08/24/20 14:58 Pulse Ox 97 08/24/20 14:58 Body Mass Index 31.1 Appearance: Alert. Oriented X3. No acute distress. HEENT: normal inspection CVS: Normal heart rate and rhythm. Pulses normal. Respiratory: No respiratory distress. Skin: Skin warm and dry. Normal skin color. Normal skin turgor. No rashes. Extremities: dorsum of left hand is erythematous and warm, mildly tender, no areas of induration or fluctuance. small pustule at the base of the left thumb. full ROM of all digits and wrist. NV intact distally. No red streaking up the arm. Neuro: Oriented X 3. No motor deficit. No sensory deficit. Course Course Course Narrative: 40 yo male presenting with left hand redness and swelling x1 day in the setting of IVDA. No fevers. Tachycardia on arrival, he admits to being anxious and states his HR is always high. No fevers. XR is negative for FB retention. Tdap up to date. No drainable area on the hand. Will start oral antibiotics to cover MRSA and skin foster. He was instructed on management and warning signs to return to the ER. He is declining detox at this time and plans to go back to [facility]. Critical Care Time Critical Care Time Critical Care Time: No Discharge Plan Discharge Clinical Impression: Cellulitis Qualifiers: Site of cellulitis: extremity Site of cellulitis of extremity: upper extremity Laterality: left Qualified Code(s): L03.114 - Cellulitis of left upper limb Patient Disposition: Home, Self-Care Instructions: Cellulitis (ED) Additional Instructions: Take the prescribed antibiotics as directed. Use warm compresses to the area several times per day to help increase blood flow. Take Motrin as needed for pain. DO NOT INJECT DRUGS. Do not use any illcit drugs, including heroin, it can kill you. Recommend detox [facility]. Follow up with [facility] as planned. If you have worsening pain, redness, swelling or any other concerning symptom come back to the ER for further evaluation. Prescriptions: New sulfamethoxazole-trimethoprim [Bactrim DS] 800-160 mg tablet 1 tab PO Q12H Qty: 14 RF: 0 cephalexin 500 mg capsule 500 mg PO Q6H 10 Days Qty: 40 RF: 0 No Action acetaminophen 325 mg Tablet 650 mg PO Q6H PRN (Reason: HEADACHE/PAIN,MILD (SCALE 1-3)) Qty: 30 RF: 0 nicotine 14 mg/24 hr Patch 24 Hour 14 mg transdermal DAILY Qty: 21 RF: 0 nicotine (polacrilex) 2 mg Gum 2 mg buccal Q2H PRN (Reason: Nicotine Cravings) Qty: 90 RF: 0 dextroamphetamine-amphetamine 20 mg tablet 20 mg PO BID@0830,1330 Qty: 60 RF: 0 hydroxyzine HCl 25 mg Tablet 25 mg PO BEDTIME PRN (Reason: Anxiety) Qty: 30 RF: 0 atenolol 25 mg Tablet 25 mg PO DAILY Qty: 30 RF: 0 clonidine HCl 0.1 mg Tablet 0.1 mg PO BID PRN (Reason: Anxiety) Qty: 60 RF: 1 paliperidone 9 mg Tablet Extended Release 24hr 9 mg PO QAM Qty: 30 RF: 1 sertraline 100 mg Tablet 100 mg PO DAILY Qty: 30 RF: 1 hydroxyzine HCl 25 mg tablet 25 mg PO BEDTIME Qty: 30 RF: 0 lorazepam 1 mg tablet 1 mg PO BID PRN (Reason: anxiety) Qty: 30 RF: 1
== END 2020-08-24 17:45 | disposition home or self-care (01) ==
PROVIDERS: Emergency Provider Emergency Medicine Emergency Medical Services; PCP Family Medicine
DX: L03.114 Cellulitis of left upper limb (principal); L02.512 Cutaneous abscess of left hand; M79.642 Pain in left hand; F14.10 Cocaine abuse, uncomplicated; F17.210 Nicotine dependence, cigarettes, uncomplicated; F11.10 Opioid abuse, uncomplicated; Z71.6 Tobacco abuse counseling; Z79.899 Other long term (current) drug therapy
CPT/HCPCS: 73130; 99284

== ENCOUNTER 2020-08-25 14:59 | Inpatient (IN) | payer OTHER, SELFPAY ==
--- NOTE | 2020-08-25 15:34 | ED.PSYCH ---
HPI - Psych General Chief Complaint: Psychiatric Symptoms Stated Complaint: CRISIS Time Seen by Provider: 08/25/20 15:28 Source: patient Mode of arrival: ambulatory Limitations: no limitations History of Present Illness HPI Narrative: 40-year-old male with a past medical history of PTSD, anxiety, depression, ADHD, dissociative personality disorder, heroin abuse here with complaints of depression, suicidal thoughts with no plan. Patient tells me that he has had difficulty getting in touch with his prescribing psychiatrist and has had several medications which have not been sent over to the pharmacy so he has been noncompliant with taking these. He has also had some issues with housing and this is caused some stress. He took himself off Suboxone and 2 weeks ago he relapsed on heroin. He is using IV 5-6 bags a day. His last use was 11:00 today. He was seen yesterday for a cellulitis to the left hand and was prescribed cephalexin and Bactrim. Denies fevers or chills. Related Data Previous Rx's Medication Instructions Recorded hydroxyzine HCl 25 mg PO BEDTIME PRN #30 tab 04/06/20 nicotine (polacrilex) 2 mg BUCCAL Q2H PRN #90 ea 04/06/20 clonidine HCl 0.1 mg PO BID PRN #60 tab 05/08/20 lorazepam 1 mg PO BID PRN #30 tab 05/08/20 paliperidone 9 mg PO QAM #30 tab 05/08/20 sertraline 100 mg PO DAILY #30 tab 05/08/20 cephalexin 500 mg PO Q6H 10 Days #40 cap 08/24/20 sulfamethoxazole-trimethoprim 1 tab PO Q12H #14 tab 08/24/20 [Bactrim DS] Allergies Allergy/AdvReac Type Severity Reaction Status Date / Time tomato [Tomato] Allergy Severe DIFFICULTY Verified 08/24/20 14:58 BREATHING, swelling of face and throat divalproex sodium Allergy Mild SEIZURES Verified 08/24/20 14:58 [From Depakote] olanzapine [From Zyprexa] Allergy Mild NIPPLES Verified 08/24/20 14:58 LEAK risperidone [From Risperdal] Allergy Mild UNKNOWN Verified 08/24/20 14:58 quetiapine [From SEROQUEL] Allergy Unknown HEART Verified 08/24/20 14:58 PALPITATIONS lithium [[place]] AdvReac Mild STOMACH Verified 08/24/20 14:58 PAIN aripiprazole [From ABILIFY] AdvReac Unknown DYSTONIA Verified 08/24/20 14:58 Review of Systems Review of Systems: Yes all other systems are reviewed and are negative Constitutional: Constitutional: Reports no additional constitutional complaints, Denies body ache(s), Denies chills, Denies fever(s), Denies headache(s) and Denies weakness Eyes: Eyes: Reports no additional eye complaints and Denies change in vision ENT: Reports system reviewed and no additional complaints, except as documented, Denies dizziness, Denies headache(s), Denies nasal congestion, Denies nasal discharge and Denies neck pain Cardiovascular: Cardiovascular: Reports no additional cardiovascular complaints, Denies chest pain, Denies leg edema and Denies dyspnea Respiratory: Respiratory: Reports no additional respiratory complaints, Denies cough and Denies dyspnea Gastrointestinal: Gastrointestinal: Reports no additional gastrointestinal complaints, Denies abdominal pain, Denies diarrhea, Denies nausea and Denies vomiting Genitourinary: Genitourinary: Denies urinary incontinence Musculoskeletal: Musculoskeletal: Reports no additional musculoskeletal complaints, Denies back pain, Denies arthralgias, Denies joint swelling, Denies neck pain, Denies numbness and Denies tingling Integumentary/Breasts: Skin/Breast: Reports system reviewed and no additional complaints, except as docu, Reports swelling, Reports erythema and Denies rash Neurologic: Reports system reviewed and no additional complaints, except as documented, Denies Abnormal speech present, Denies dizziness, Denies headache(s), Denies numbness, Denies tingling and Denies weakness Psychiatric: Psychiatric: Denies anxiety, Reports depression, Denies hallucinations, Denies homicidal ideation and Reports suicidal ideation [facility] Past Medical History Attestation statement: The following information was validated with the patient. Source: old records reviewed and nursing notes reviewed Medical History Cocaine use disorder HTN (hypertension) OCD (obsessive compulsive disorder) Panic anxiety syndrome Post traumatic stress disorder (PTSD) Social History Social History Household Members: Family Household Members Other:: MOTHER Housing: House Alcohol intake: unknown Smoking Status: Current every day smoker Tobacco Type: Cigarette Packs Per Day: 0.33 Cigarettes Per Day: 6.6 Years Smoked: 30 Second Hand Smoke Exposure: No Use of substances other than those prescribed or required for medical reasons: Yes Substance Use Type: Heroin Advance Directives: No Advance Directives Information Provided: No service: No Sexual orientation: unable to assess Physical Exam Vital Signs: Vital Signs: Last Vital Signs Temp 97 F 08/25/20 19:42 Pulse 84 08/25/20 19:42 Resp 18 08/25/20 19:42 BP 98/56 L 08/25/20 19:42 Pulse Ox 95 08/25/20 19:42 Body Mass Index 31.1 Const: General: cooperative, healthy appearing, comfortable and no acute distress Orientation/consciousness: patient oriented x3 Limitations: no limitations HENMT: Head: Yes normal to inspection Ears: hearing grossly normal bilaterally General nose exam: Normal external nose present Face and sinus: Yes normal facial exam Mouth: Normal oral and palatal mucosa present Throat: Yes posterior oropharynx normal Eyes: General: appearance normal, both eyes and all related structures Pupils: Equal, round and reactive pupils present Neck: Neck: Yes normal visual inspection Chest: Chest palpation & inspection: normal inspection of the chest Resp: Effort & Inspection: normal respiratory effort Auscultation: clear to auscultation bilaterally Cardio: Rate: regular rate Rhythm: regular rhythm Peripheral pulses: Peripheral pulses 2+ throughout GI: Inspection: Yes normal to inspection Palpation (GI): Soft to palpation and nontender Auscultation: normal bowel sounds Back/Spine/Pelvis: Thoracic/Lumbar Spine: thoracic and lumbar spine normal to inspection Skin: General skin exam: no rashes or lesions noted Neuro: General: patient oriented x3, no focal motor deficits and normal sensation to monofilament Cranial nerves: Yes Equal, round and reactive pupils present Cognition (Neuro): normal cognition Speech: No Abnormal speech present Gait exam (Neuro): Normal gait present Motor exam (neuro): 5/5 motor strength present throughout Extrem: Other: To the left dorsal aspect of the hand there is redness and swelling. The patient has some pain with flexion of the wrist but has no pain with extension of the wrist or passive extension of the wrist. Full range of motion. General: Yes normal to inspection Course Course Course Narrative: 40-year-old male here with suicidal thoughts, depression. Recent relapse on heroin. Currently being treated for left hand cellulitis with Bactrim and cephalexin Will need labs, VILLALOBOS, COVID screen, BHN evaluation. 2100-Sign out to night team pending BHn evaluation. MDM - Psych Medical Records Attestation: I reviewed the patient's medical records. Lab Data Attestation: I reviewed the patient's lab results. Result diagrams: 08/25/20 18:06 08/25/20 18:07 Labs: Lab Results 08/25/20 08/25/20 08/25/20 Range/Units 15:54 18:06 18:07 WBC 7.2 (4.8-10.8) X10*3/uL RBC 4.55 L (4.60-5.80) X10*6/uL Hgb 13.1 L (14.0-18.0) g/dl Hct 39.2 L (42-52) % MCV 86.2 (80-98) fL MCH 28.8 (27.0-33.0) pg MCHC 33.4 (31.0-36.0) g/dl RDW 13.9 (11.0-16.0) % Plt Count 176 D (160-400) X10*3/uL MPV 11.9 (9.4-12.4) fL Immature Gran % (Auto) 0.4 (0.0-0.4) % Neut % (Auto) 63.7 (45-73) % Lymph % (Auto) 25.8 (20-40) % [place] % (Auto) 7.5 (2-11) % Eos % (Auto) 2.2 (0-4) % Baso % (Auto) 0.4 (0-2) % Lymph # (Auto) 1.9 (1.2-4.9) X10*3/uL [place] # (Auto) 0.5 (0.1-1.2) X10*3/uL Eos # (Auto) 0.2 (0.0-0.4) X10*3/uL Baso # (Auto) 0.0 (0.0-0.2) X10*3/uL Abs Immat Gran (auto) 0.03 (0.00-0.03) X10*3/uL Absolute Neuts (auto) 4.6 (2.0-8.3) X10*3/uL Absolute Nucleated RBC 0.000 (0.0-0.012) X10*3/uL Nucleated RBC % (auto) 0.0 (0.0-0.2) /100WBC Sodium 135 (135-145) mmol/L Potassium 4.0 (3.3-5.1) mmol/L Chloride 101 (96-108) mmol/L Carbon Dioxide 25 (22-29) mmol/L Anion Gap 13 (12-20) BUN 17 H (9-16) mg/dL Creatinine 0.77 (0.5-1.4) mg/dL Estim Creat Clear Calc 156.0 Estimated GFR > 60 Random Glucose 118 H D (60-115) mg/dL Calcium 9.0 (8.4-10.2) mg/dL Total Bilirubin (0.0-1.0) mg/dL Direct Bilirubin (0.0-0.5) mg/dL AST (5-37) U/L ALT (0-40) U/L Alkaline Phosphatase (39-117) U/L Total Protein (6.5-8.0) g/dL Albumin (3.5-5.0) g/dL Salicylates (15-30) mg/dL Acetaminophen (<30) mcg/mL Ethyl Alcohol mg/dL COVID-19 (SHAYY) Negative (Negative) COVID-19 Clin Com See Note 08/25/20 08/25/20 Range/Units 18:07 18:07 WBC (4.8-10.8) X10*3/uL RBC (4.60-5.80) X10*6/uL Hgb (14.0-18.0) g/dl Hct (42-52) % MCV (80-98) fL MCH (27.0-33.0) pg MCHC (31.0-36.0) g/dl RDW (11.0-16.0) % Plt Count (160-400) X10*3/uL MPV (9.4-12.4) fL Immature Gran % (Auto) (0.0-0.4) % Neut % (Auto) (45-73) % Lymph % (Auto) (20-40) % [place] % (Auto) (2-11) % Eos % (Auto) (0-4) % Baso % (Auto) (0-2) % Lymph # (Auto) (1.2-4.9) X10*3/uL [place] # (Auto) (0.1-1.2) X10*3/uL Eos # (Auto) (0.0-0.4) X10*3/uL Baso # (Auto) (0.0-0.2) X10*3/uL Abs Immat Gran (auto) (0.00-0.03) X10*3/uL Absolute Neuts (auto) (2.0-8.3) X10*3/uL Absolute Nucleated RBC (0.0-0.012) X10*3/uL Nucleated RBC % (auto) (0.0-0.2) /100WBC Sodium (135-145) mmol/L Potassium (3.3-5.1) mmol/L Chloride (96-108) mmol/L Carbon Dioxide (22-29) mmol/L Anion Gap (12-20) BUN (9-16) mg/dL Creatinine (0.5-1.4) mg/dL Estim Creat Clear Calc Estimated GFR Random Glucose (60-115) mg/dL Calcium (8.4-10.2) mg/dL Total Bilirubin 0.5 (0.0-1.0) mg/dL Direct Bilirubin 0.2 (0.0-0.5) mg/dL AST 42 H (5-37) U/L ALT 51 H (0-40) U/L Alkaline Phosphatase 99 (39-117) U/L Total Protein 6.7 (6.5-8.0) g/dL Albumin 3.8 (3.5-5.0) g/dL Salicylates < 5.0 L (15-30) mg/dL Acetaminophen 4 (<30) mcg/mL Ethyl Alcohol < 10 mg/dL COVID-19 (SHAYY) (Negative) COVID-19 Clin Com Discharge Plan Discharge Clinical Impression: Suicidal ideation, Opioid use Prescriptions: No Action nicotine (polacrilex) 2 mg Gum 2 mg buccal Q2H PRN (Reason: Nicotine Cravings) Qty: 90 RF: 0 hydroxyzine HCl 25 mg Tablet 25 mg PO BEDTIME PRN (Reason: Anxiety) Qty: 30 RF: 0 clonidine HCl 0.1 mg Tablet 0.1 mg PO BID PRN (Reason: Anxiety) Qty: 60 RF: 1 paliperidone 9 mg Tablet Extended Release 24hr 9 mg PO QAM Qty: 30 RF: 1 sertraline 100 mg Tablet 100 mg PO DAILY Qty: 30 RF: 1 lorazepam 1 mg tablet 1 mg PO BID PRN (Reason: anxiety) Qty: 30 RF: 1 sulfamethoxazole-trimethoprim [Bactrim DS] 800-160 mg tablet 1 tab PO Q12H Qty: 14 RF: 0 cephalexin 500 mg capsule 500 mg PO Q6H 10 Days Qty: 40 RF: 0
[2020-08-25 16:14] VITALS: BP 137/82; PULSE 121; RESP 20; TEMP 36.5; O2SAT 96; BMI 31.1
[2020-08-25 16:17] LABS: COVID-19 Test Negative (Negative)
[2020-08-25 16:20] VITALS: RESP 20
[2020-08-25] MEDS: Acetaminophen 325 MG TABLET 650 MG PO (16:28)
[2020-08-25] MEDS: Nicotine 21 MG PATCH.TD24 TRANSDERMA (16:29)
[2020-08-25 18:00] VITALS: RESP 20
--- NOTE | 2020-08-25 18:08 | PC.NURSE ---
Pt reports minimal effect from tylenol given- reviewed w/ provider.
[2020-08-25 18:15] LABS: MANUAL DIFF FLAG NO
[2020-08-25 18:17] LABS: Basophils Percent Auto 0.4 % (0-2); Eosinophils Absolute Auto 0.2 X10*3/uL (0.0-0.4); Eosinophils Percent Auto 2.2 % (0-4); Hematocrit 39.2 % (42-52); Hemoglobin 13.1 g/dl (14.0-18.0); Imm Gran Abs Auto 0.03 X10*3/uL (0.00-0.03); Imm Gran Pct Auto 0.4 % (0.0-0.4); Lymphocytes Absolute Auto 1.9 X10*3/uL (1.2-4.9); Lymphocytes Percent Auto 25.8 % (20-40); Mean Corpuscular HGB Conc 33.4 g/dl (31.0-36.0); Mean Corpuscular Hemoglobin 28.8 pg (27.0-33.0); Mean Corpuscular Volume 86.2 fL (80-98); Mean Platelet Volume 11.9 fL (9.4-12.4); Monocytes Absolute Auto 0.5 X10*3/uL (0.1-1.2); Monocytes Percent Auto 7.5 % (2-11); Neutrophils Absolute Auto 4.6 X10*3/uL (2.0-8.3); Neutrophils Percent Auto 63.7 % (45-73); Platelet Count 176 X10*3/uL (160-400); Red Blood Count 4.55 X10*6/uL (4.60-5.80); Red Cell Distribution Width 13.9 % (11.0-16.0); White Blood Count 7.2 X10*3/uL (4.8-10.8)
[2020-08-25 18:42] LABS: Ethanol < 10 mg/dL
[2020-08-25 18:44] LABS: Anion Gap 13 (12-20); Blood Urea Nitrogen 17 mg/dL (9-16); Carbon Dioxide 25 mmol/L (22-29); Chloride 101 mmol/L (96-108); Estimated Glomerular Filt Rate > 60; Glucose Random 118 mg/dL (60-115); Sodium 135 mmol/L (135-145)
[2020-08-25 18:48] LABS: Alanine Aminotransferase 51 U/L (0-40); Albumin Level 3.8 g/dL (3.5-5.0); Alkaline Phosphatase 99 U/L (39-117); Aspartate Amino Transferase 42 U/L (5-37); Bilirubin Direct 0.2 mg/dL (0.0-0.5); Bilirubin Total 0.5 mg/dL (0.0-1.0); Salicylate < 5.0 mg/dL (15-30); Total Protein 6.7 g/dL (6.5-8.0)
[2020-08-25] MEDS: Ketorolac Tromethamine 60 MG/2 ML VIAL IM (18:51)
[2020-08-25 18:55] LABS: Acetaminophen LAB 4 mcg/mL (<30)
[2020-08-25] MEDS: cephALEXin 500 MG CAPSULE PO (19:35)
[2020-08-25] MEDS: Sertraline HCL 100 MG TABLET PO (19:35)
[2020-08-25 19:42] VITALS: BP 98/56; PULSE 84; RESP 18; TEMP 36.1; O2SAT 95
[2020-08-25] MEDS: Paliperidone ER 9 MG TAB.ER.24 PO (19:46)
--- NOTE | 2020-08-25 23:32 | PC.NURSE ---
Patient calm and quiet, BHN at bedside.
[2020-08-26] VITALS: BP 128/69; PULSE 84; RESP 18; TEMP 36.9; O2SAT 97
--- NOTE | 2020-08-26 01:17 | PC.NURSE ---
DAMIENN completed assessment, per [facility] patient engaged, disposition Section 12 inpatient bed search, will continue to monitor.
[2020-08-26] MEDS: cephALEXin 500 MG CAPSULE PO ×4 (02:21→20:07)
[2020-08-26 06:55] LABS: Glucose Urine UA NEG (NEG); Leukocyte Esterase Urine NEG (NEG); Nitrite Urine NEG (NEG); Specific Gravity - Urine >= 1.030 (1.005-1.025); Urine Blood NEG (NEG); Urine Ketones NEG (NEG); Urine Protein NEG (NEG-TRACE)
[2020-08-26 06:56] LABS: Appearance Urine HAZY; Color Urine DARK YELLOW
--- NOTE | 2020-08-26 07:04 | PC.NURSE ---
received report from prior RN patient remains at rest presently with even unlabored breaths and appears in no distress.
[2020-08-26 07:26] LABS: Amphetamine Screen Urine Not Detected (Not Detect); Barbiturates, Urine Not Detected (Not Detect); Benzodiazepines Screen Urine Not Detected (Not Detect); Cannabinoid Screen Urine POSITIVE (Not Detect); Cocaine Screen Urine Not Detected (Not Detect); Opiate Screen Urine POSITIVE (Not Detect); Phencyclidine Screen Urine Not Detected (Not Detect)
[2020-08-26] MEDS: Paliperidone ER 9 MG TAB.ER.24 PO (08:08)
[2020-08-26] MEDS: LORazepam 1 MG TABLET PO ×2 (08:08→20:06)
[2020-08-26] MEDS: Sertraline HCL 100 MG TABLET PO (08:08)
--- NOTE | 2020-08-26 08:43 | ECG_ITS ---
Test Reason : MEDICAL CLEARANCE Blood Pressure : / mmHG Vent. Rate : 080 BPM Atrial Rate : 080 BPM P-R Int : 136 ms QRS Dur : 088 ms QT Int : 384 ms P-R-T Axes : 054 018 041 degrees QTc Int : 442 ms Normal sinus rhythm Normal ECG When compared with ECG of 31-MAR-2020 02:34, No significant change was found Referred By: Ruma Garcia Electronically Signed By:JOSE ANGEL AWAN MD
[2020-08-26 09:18] LABS: RBC Urine 0 /HPF (0); Uric Acid Crystals Urine 1+ /LPF; WBC Urine 0 /HPF (0-4)
[2020-08-26 09:45] VITALS: BP 111/62; PULSE 89; RESP 16; TEMP 36.6; O2SAT 96
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
[2020-08-26 20:06] VITALS: BP 138/96
[2020-08-26] MEDS: cloNIDine HCL 0.1 MG TABLET PO (20:06)
[2020-08-27] MEDS: traZODone HCL 50 MG TABLET PO ×2 (01:41→20:04)
[2020-08-27] MEDS: hydrOXYzine HCL 25 MG TABLET PO (01:42)
[2020-08-27] MEDS: cephALEXin 500 MG CAPSULE PO ×4 (01:46→20:05)
--- NOTE | 2020-08-27 05:49 | PC.NURSE ---
0600: PT NOW ASKING FOR THE ONE TIME DOSE OF SUBOXONE THAT THIS FIELD GEOLOGIST DISCONTINUED AFTER PT REFUSED IT EARLIER IN THE SHIFT STATING AT THE TIME THAT SUBOXONE MAKES HIM SICK AND HE WANTED METHADONE. PT NOW DENYING THAT HE REFUSED THE SUBOXONE AND PT IS SWEARING ABOUT THIS FIELD GEOLOGIST DISCONTINUING THE SUBOXONE.
[2020-08-27 06:00] VITALS: BP 111/59; PULSE 94; RESP 18; TEMP 36.4; O2SAT 98
[2020-08-27] MEDS: Buprenorphine/Naloxone 4/1 mg FILM 1 FILM SUBLINGUAL (06:14)
[2020-08-27] MEDS: LORazepam 1 MG TABLET PO ×2 (06:40→13:33)
[2020-08-27 07:00] VITALS: BMI 33.2
[2020-08-27 08:45] VITALS: BP 137/87; PULSE 119
[2020-08-27] MEDS: Paliperidone ER 9 MG TAB.ER.24 PO (08:45)
[2020-08-27] MEDS: cloNIDine HCL 0.1 MG TABLET PO ×2 (08:45→19:26)
[2020-08-27] MEDS: Sertraline HCL 100 MG TABLET PO (08:46)
[2020-08-27] MEDS: Buprenorphine/Naloxone 8/2 mg FILM 1 FILM SUBLINGUAL ×2 (11:50→20:04)
[2020-08-27] MEDS: Nicotine 21 MG PATCH.TD24 TRANSDERMA (13:35)
[2020-08-27 18:00] VITALS: BP 135/65; PULSE 87; TEMP 36.9
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
[2020-08-27 19:26] VITALS: BP 135/65; PULSE 87
[2020-08-28] MEDS: LORazepam 1 MG TABLET PO ×2 (06:05→12:44)
[2020-08-28] MEDS: cephALEXin 500 MG CAPSULE PO ×4 (06:05→22:06)
[2020-08-28] MEDS: Nicotine 21 MG PATCH.TD24 TRANSDERMA (08:10)
[2020-08-28] MEDS: Buprenorphine/Naloxone 8/2 mg FILM 1 FILM SUBLINGUAL ×2 (08:10→20:05)
[2020-08-28] MEDS: Sertraline HCL 100 MG TABLET PO (09:35)
[2020-08-28] MEDS: Paliperidone ER 9 MG TAB.ER.24 PO (09:35)
[2020-08-28 12:43] VITALS: BP 129/83; PULSE 124
[2020-08-28] MEDS: cloNIDine HCL 0.1 MG TABLET PO ×2 (12:43→17:34)
[2020-08-28 14:04] VITALS: BP 125/68; PULSE 84; RESP 16; TEMP 36.3
--- NOTE | 2020-08-28 16:16 | HO.PSYCHPN ---
Subjective Subjective Date of Service: 08/28/20 Reason For Visit: SI Subjective Notes: Conditional Voluntary Interim History: Pt reports decrease symptoms of depression. he reports waking up at 3am last night restless but overall more stable/rested. He reports increase energy, able to go to groups. He reports less suicidal ideation and denies any plan or intent. He wants to continue suboxone MAT. he denies HI. No AH/VH. Medication Compliance: Yes Side effects from medications: No Attending Groups: Yes Review of Systems Review of Systems Yes all other systems are reviewed and are negative Constitutional: Reports no additional constitutional complaints, Denies body ache(s), Denies chills, Denies fever(s), Denies headache(s) and Denies weakness Eyes: Reports no additional eye complaints and Denies change in vision Reports system reviewed and no additional complaints, except as documented, Denies dizziness, Denies headache(s), Denies nasal congestion, Denies nasal discharge and Denies neck pain Cardiovascular: Reports no additional cardiovascular complaints, Denies chest pain, Denies leg edema and Denies dyspnea Respiratory: Reports no additional respiratory complaints, Denies cough and Denies dyspnea Gastrointestinal: Reports no additional gastrointestinal complaints, Reports abdominal pain, Reports diarrhea, Denies nausea and Denies vomiting Genitourinary: Denies urinary incontinence Musculoskeletal: Reports no additional musculoskeletal complaints, Denies back pain, Denies arthralgias, Denies joint swelling, Reports muscle cramps, Denies neck pain, Denies numbness and Denies tingling Skin/Breast: Reports system reviewed and no additional complaints, except as docu, Reports swelling, Reports erythema and Denies rash Reports system reviewed and no additional complaints, except as documented, Denies Abnormal speech present, Denies dizziness, Denies headache(s), Denies numbness, Denies tingling and Denies weakness Psychiatric: Denies anxiety, Reports depression, Denies hallucinations, Denies homicidal ideation and Reports suicidal ideation Mental Status Exam Mental Status Exam Narrative: Appearance: casually groomed, poor hygiene, discomfort due to opioid withdrawal Behavior: cooperative Psychomotor: no agitation or retardation noted but restless Speech: clear, normal rate/rhythm/volume, spontaneous TP: linear TC: no signs of psychosis, hopeless/helpless Mood: better Affect:brighter, congruent SI:passive, no plan or intent HI:denies AH/VH:denies Delusions:none Insight/judgment:fair x 2. Memory/cog: alert, oriented x 3. Diagnostics Vital Signs (24Hr): Vital Signs - 24 hr 08/27/20 18:00 08/27/20 19:26 08/28/20 12:43 Temperature 98.4 F Pulse Rate 87 87 124 H Respiratory Rate Blood Pressure 135/65 135/65 129/83 08/28/20 14:04 Temperature 97.4 F Pulse Rate 84 Respiratory Rate 16 Blood Pressure 125/68 Body Mass Index 33.2 Labs Results: 08/25/20 18:06 08/25/20 18:07 Medications Medications Current Medications Generic Name Dose Route Start Last Admin Trade Name Freq PRN Reason Stop Dose Admin Acetaminophen 650 mg 08/26/20 12:26 Acetaminophen 325 Mg Tablet PO Q6H PRN Headache/Pain Mild Scale (1-3) Al Hydroxide/Mg Hydroxide 30 ml 08/26/20 12:26 Magnesium Hydrox/Alum Hydrox 30 Ml Oral.Susp PO Q6H PRN Heartburn/Nausea Buprenorphine/Naloxone 1 film 08/27/20 11:42 08/28/20 08:10 Buprenorphine/Naloxone 8/2 Mg Film SUBLINGUAL 1 film BID RISSA Administration Buprenorphine/Naloxone 1 film 08/29/20 04:00 Buprenorphine/Naloxone 4/1 Mg Film SUBLINGUAL DAILY@0400 RISSA Cephalexin HCl 500 mg 08/28/20 05:00 08/28/20 12:43 Cephalexin 500 Mg Capsule PO 500 mg Q6H RISSA Administration Clonidine HCl 0.1 mg 08/25/20 18:05 08/28/20 12:43 Clonidine Hcl 0.1 Mg Tablet PO 0.1 mg BID PRN Administration Anxiety Protocol Hydroxyzine HCl 25 mg 08/25/20 18:05 08/27/20 01:42 Hydroxyzine Hcl 25 Mg Tablet PO 25 mg BEDTIME PRN Administration Anxiety Hydroxyzine HCl 25 mg 08/26/20 12:26 Hydroxyzine Hcl 25 Mg Tablet PO BEDTIME PRN Anxiety Lorazepam 1 mg 08/25/20 18:05 08/28/20 12:44 Lorazepam 1 Mg Tablet PO 1 mg BID PRN Administration anxiety Magnesium Hydroxide 30 ml 08/26/20 12:26 Milk Of Magnesia 30 Ml Oral.Susp PO DAILY PRN Constipation Nicotine 21 mg 08/27/20 13:30 08/28/20 08:10 Nicotine 21 Mg Patch.Td24 TRANSDERMA 21 mg DAILY RISSA Administration Nicotine Polacrilex 2 mg 08/25/20 18:05 Nicotine Polacrilex 2 Mg Gum BUCCAL Q2H PRN Nicotine Cravings Ondansetron HCl 4 mg 08/28/20 10:44 08/28/20 10:57 Ondansetron Odt 4 Mg Tab.Rapdis TRANSLINGU 4 mg Q8H PRN Administration Nausea Paliperidone 9 mg 08/25/20 18:15 08/28/20 09:35 Paliperidone Er 9 Mg Tab.Er.24 PO 9 mg DAILY RISSA Administration Pharmacy Consult 1 each 08/25/20 15:30 Consult Rx Perform Med Rec MISCELLANE ONCE PRN Consult order Sertraline HCl 100 mg 08/25/20 18:15 08/28/20 09:35 Sertraline Hcl 100 Mg Tablet PO 100 mg DAILY RISSA Administration Trazodone HCl 50 mg 08/26/20 12:26 08/27/20 20:04 Trazodone Hcl 50 Mg Tablet PO 50 mg BEDTIME PRN Administration Insomnia Trimethoprim/Sulfamethoxazole 1 tab 08/27/20 09:00 08/28/20 09:35 Sulfamethox/Trimeth 800/160 1 Tab Tablet PO 1 tab Q12H RISSA Administration Allergies Allergies Allergy/AdvReac Type Severity Reaction Status Date / Time tomato [Tomato] Allergy Severe DIFFICULTY Verified 08/24/20 14:58 BREATHING, swelling of face and throat divalproex sodium Allergy Mild SEIZURES Verified 08/24/20 14:58 [From Depakote] olanzapine [From Zyprexa] Allergy Mild NIPPLES Verified 08/24/20 14:58 LEAK risperidone [From Risperdal] Allergy Mild UNKNOWN Verified 08/24/20 14:58 quetiapine [From SEROQUEL] Allergy Unknown HEART Verified 08/24/20 14:58 PALPITATIONS lithium [[place]] AdvReac Mild STOMACH Verified 08/24/20 14:58 PAIN aripiprazole [From ABILIFY] AdvReac Unknown DYSTONIA Verified 08/24/20 14:58 Assessment & Plan Assessment & Plan (1) MDD (major depressive disorder), recurrent, severe, with psychosis: Status: Acute Code(s): F33.3 - Major depressive disorder, recurrent, severe with psychotic symptoms Assessment and Plan: 1. continue sertraline, paliperidone. (2) Opioid use disorder, severe, dependence: Status: Acute Code(s): F11.20 - Opioid dependence, uncomplicated Assessment and Plan: 1. continue Suboxone 8mg/2mg SL BID and suboxone 4mg/1mg SL at 4am. Greater than 50% of the session was spent on counseling and/or coordination of care Reason for contiued inpatient stay Substantial Risk for: harm to self
[2020-08-28 17:34] VITALS: BP 162/88; PULSE 132
[2020-08-28 18:00] VITALS: BP 104/68; PULSE 113; TEMP 36.5
[2020-08-28] MEDS: traZODone HCL 50 MG TABLET PO ×2 (21:34→22:20)
[2020-08-28] MEDS: Nicotine Polacrilex 2 MG GUM BUCCAL (22:20)
[2020-08-29] MEDS: cephALEXin 500 MG CAPSULE PO ×4 (04:08→22:14)
[2020-08-29] MEDS: Buprenorphine/Naloxone 4/1 mg FILM 1 FILM SUBLINGUAL (04:08)
[2020-08-29 05:53] VITALS: BP 136/84; PULSE 104; RESP 18; TEMP 36.4; O2SAT 96
--- NOTE | 2020-08-29 07:27 | HO.PSYCHPN ---
Subjective Subjective Date of Service: 08/29/20 Reason For Visit: SI Interim History: Pt reports some mild nausea and anxiety. He reports less depressed. Still waking up in middle of the night. He reports increase energy and able to go to groups. He reports less suicidal ideation and denies plan or intent. He wants to continue suboxone MAT- feels its helpful. he denies HI. No AH/VH. Review of Systems Review of Systems Yes all other systems are reviewed and are negative Constitutional: Reports as per HPI and Reports no additional constitutional complaints Reports system reviewed and no additional complaints, except as documented, Denies dizziness, Denies nasal congestion, Denies nasal discharge and Denies neck pain Cardiovascular: Reports no additional cardiovascular complaints, Denies chest pain, Denies leg edema and Denies dyspnea Respiratory: Reports no additional respiratory complaints, Denies cough and Denies dyspnea Gastrointestinal: Reports nausea Genitourinary: Denies urinary incontinence Musculoskeletal: Reports no additional musculoskeletal complaints, Denies back pain, Denies arthralgias, Denies joint swelling, Denies neck pain, Denies numbness and Denies tingling Skin/Breast: Reports system reviewed and no additional complaints, except as docu, Reports swelling, Reports erythema and Denies rash Reports system reviewed and no additional complaints, except as documented, Denies dizziness, Denies numbness and Denies tingling Psychiatric: Reports anxiety, Reports depression and Denies hallucinations Mental Status Exam Mental Status Exam Narrative: Appearance: casually groomed, poor hygiene, appears in minimal discomfort due to opioid withdrawal Behavior: cooperative Psychomotor: no agitation or retardation noted but restless Speech: clear, normal rate/rhythm/volume, spontaneous TP: linear TC: no signs of psychosis, hopeless/helpless Mood: better Affect:brighter, congruent SI:passive, no plan or intent HI:denies AH/VH:denies Delusions:none Insight/judgment:fair x 2. Memory/cog: alert, oriented x 3. judgement : fair Diagnostics Vital Signs (24Hr): Vital Signs - 24 hr 08/28/20 12:43 08/28/20 14:04 08/28/20 17:34 Temperature 97.4 F Pulse Rate 124 H 84 132 H Respiratory Rate 16 Blood Pressure 129/83 125/68 162/88 H Pulse Oximetry 08/28/20 18:00 08/29/20 05:53 Temperature 97.7 F 97.5 F Pulse Rate 113 H 104 H Respiratory Rate 18 Blood Pressure 104/68 136/84 Pulse Oximetry 96 Body Mass Index 33.2 Labs Results: 08/25/20 18:06 08/25/20 18:07 Medications Medications Current Medications Generic Name Dose Route Start Last Admin Trade Name Freq PRN Reason Stop Dose Admin Acetaminophen 650 mg 08/26/20 12:26 Acetaminophen 325 Mg Tablet PO Q6H PRN Headache/Pain Mild Scale (1-3) Al Hydroxide/Mg Hydroxide 30 ml 08/26/20 12:26 Magnesium Hydrox/Alum Hydrox 30 Ml Oral.Susp PO Q6H PRN Heartburn/Nausea Buprenorphine/Naloxone 1 film 08/27/20 11:42 08/28/20 20:05 Buprenorphine/Naloxone 8/2 Mg Film SUBLINGUAL 1 film BID RISSA Administration Buprenorphine/Naloxone 1 film 08/29/20 04:00 08/29/20 04:08 Buprenorphine/Naloxone 4/1 Mg Film SUBLINGUAL 1 film DAILY@0400 RISSA Administration Cephalexin HCl 500 mg 08/28/20 05:00 08/29/20 04:08 Cephalexin 500 Mg Capsule PO 500 mg Q6H RISSA Administration Clonidine HCl 0.1 mg 08/25/20 18:05 08/28/20 17:34 Clonidine Hcl 0.1 Mg Tablet PO 0.1 mg BID PRN Administration Anxiety Protocol Hydroxyzine HCl 25 mg 08/25/20 18:05 08/27/20 01:42 Hydroxyzine Hcl 25 Mg Tablet PO 25 mg BEDTIME PRN Administration Anxiety Hydroxyzine HCl 25 mg 08/26/20 12:26 Hydroxyzine Hcl 25 Mg Tablet PO BEDTIME PRN Anxiety Lorazepam 1 mg 08/25/20 18:05 08/28/20 12:44 Lorazepam 1 Mg Tablet PO 1 mg BID PRN Administration anxiety Magnesium Hydroxide 30 ml 08/26/20 12:26 Milk Of Magnesia 30 Ml Oral.Susp PO DAILY PRN Constipation Nicotine 21 mg 08/27/20 13:30 08/28/20 08:10 Nicotine 21 Mg Patch.Td24 TRANSDERMA 21 mg DAILY RISSA Administration Nicotine Polacrilex 2 mg 08/25/20 18:05 08/28/20 22:20 Nicotine Polacrilex 2 Mg Gum BUCCAL 2 mg Q2H PRN Administration Nicotine Cravings Ondansetron HCl 4 mg 08/28/20 10:44 08/28/20 22:19 Ondansetron Odt 4 Mg Tab.Rapdis TRANSLINGU 4 mg Q8H PRN Administration Nausea Paliperidone 9 mg 08/25/20 18:15 08/28/20 09:35 Paliperidone Er 9 Mg Tab.Er.24 PO 9 mg DAILY RISSA Administration Pharmacy Consult 1 each 08/25/20 15:30 Consult Rx Perform Med Rec MISCELLANE ONCE PRN Consult order Sertraline HCl 100 mg 08/25/20 18:15 08/28/20 09:35 Sertraline Hcl 100 Mg Tablet PO 100 mg DAILY RISSA Administration Trazodone HCl 50 mg 08/26/20 12:26 08/28/20 22:20 Trazodone Hcl 50 Mg Tablet PO 50 mg BEDTIME PRN Administration Insomnia Trimethoprim/Sulfamethoxazole 1 tab 08/27/20 09:00 08/28/20 20:05 Sulfamethox/Trimeth 800/160 1 Tab Tablet PO 1 tab Q12H RISSA Administration Allergies Allergies Allergy/AdvReac Type Severity Reaction Status Date / Time tomato [Tomato] Allergy Severe DIFFICULTY Verified 08/24/20 14:58 BREATHING, swelling of face and throat divalproex sodium Allergy Mild SEIZURES Verified 08/24/20 14:58 [From Depakote] olanzapine [From Zyprexa] Allergy Mild NIPPLES Verified 08/24/20 14:58 LEAK risperidone [From Risperdal] Allergy Mild UNKNOWN Verified 08/24/20 14:58 quetiapine [From SEROQUEL] Allergy Unknown HEART Verified 08/24/20 14:58 PALPITATIONS lithium [[place]] AdvReac Mild STOMACH Verified 08/24/20 14:58 PAIN aripiprazole [From ABILIFY] AdvReac Unknown DYSTONIA Verified 08/24/20 14:58 Assessment & Plan Assessment & Plan (1) MDD (major depressive disorder), recurrent, severe, with psychosis: Status: Acute Code(s): F33.3 - Major depressive disorder, recurrent, severe with psychotic symptoms Assessment and Plan: 1. continue sertraline, paliperidone. (2) Opioid use disorder, severe, dependence: Status: Acute Code(s): F11.20 - Opioid dependence, uncomplicated Assessment and Plan: 1. continue Suboxone 8mg/2mg SL BID and suboxone 4mg/1mg SL at 4am. Greater than 50% of the session was spent on counseling and/or coordination of care Patient educated on: medication risk/benefits and substance abuse Informed Consent: further education needed Reason for contiued inpatient stay Substantial Risk for: harm to self, harm to others, rapid decompensation and med/psych decompensation
[2020-08-29] MEDS: Nicotine 21 MG PATCH.TD24 TRANSDERMA (08:15)
[2020-08-29] MEDS: LORazepam 1 MG TABLET PO ×2 (08:16→16:32)
[2020-08-29] MEDS: Buprenorphine/Naloxone 8/2 mg FILM 1 FILM SUBLINGUAL ×2 (08:16→20:11)
[2020-08-29] MEDS: Paliperidone ER 9 MG TAB.ER.24 PO (09:21)
[2020-08-29] MEDS: Sertraline HCL 100 MG TABLET PO (09:21)
[2020-08-29] MEDS: Acetaminophen 325 MG TABLET 650 MG PO (10:41)
[2020-08-29 14:32] VITALS: BP 122/75; PULSE 125
[2020-08-29] MEDS: cloNIDine HCL 0.1 MG TABLET PO ×2 (14:32→22:13)
[2020-08-29 18:00] VITALS: BP 131/80; PULSE 104; TEMP 36.2
[2020-08-29 22:13] VITALS: BP 129/86; PULSE 113
[2020-08-29] MEDS: hydrOXYzine HCL 25 MG TABLET PO (22:14)
[2020-08-29] MEDS: traZODone HCL 50 MG TABLET PO (22:14)
[2020-08-30] MEDS: Buprenorphine/Naloxone 4/1 mg FILM 1 FILM SUBLINGUAL (04:47)
[2020-08-30] MEDS: cephALEXin 500 MG CAPSULE PO ×4 (04:47→22:09)
[2020-08-30] MEDS: Acetaminophen 325 MG TABLET 650 MG PO ×2 (04:48→14:06)
[2020-08-30 06:00] VITALS: BP 128/77; PULSE 96; RESP 18; TEMP 35.8; O2SAT 96
[2020-08-30] MEDS: Buprenorphine/Naloxone 8/2 mg FILM 1 FILM SUBLINGUAL ×2 (08:06→20:00)
[2020-08-30] MEDS: Nicotine 21 MG PATCH.TD24 TRANSDERMA (08:06)
[2020-08-30] MEDS: Paliperidone ER 9 MG TAB.ER.24 PO (08:07)
[2020-08-30] MEDS: Sertraline HCL 100 MG TABLET PO (08:07)
[2020-08-30] MEDS: LORazepam 1 MG TABLET PO ×2 (11:00→17:03)
[2020-08-30 11:01] VITALS: BP 124/77; PULSE 118
[2020-08-30] MEDS: cloNIDine HCL 0.1 MG TABLET PO (11:01)
--- NOTE | 2020-08-30 16:32 | PC.NURSE ---
hand swelling-per hospitalist Brian Daniels-patient should have an ortho referral.
--- NOTE | 2020-08-30 16:36 | P.PNPSI_ITS ---
Subjective Subjective Date of Service: 08/30/20 Reason For Visit: SI Interim History: Pt reports left hand and wrist painful and swollen; no fever; Pt reports less nausea and less anxiety. He reports he is less depressed. Still waking up in middle of the night. He reports increase energy and able to go to groups. He reports less suicidal ideation and denies plan or intent. He wants to continue suboxone MAT- feels its helpful. he denies HI. No AH/VH. Review of Systems Review of Systems Yes all other systems are reviewed and are negative Constitutional: Reports as per HPI, Reports no additional constitutional complaints, Denies body ache(s), Denies chills, Denies fever(s), Denies headache(s) and Denies weakness Eyes: Reports no additional eye complaints and Denies change in vision Reports system reviewed and no additional complaints, except as documented, Denies dizziness, Denies headache(s), Denies nasal congestion, Denies nasal discharge and Denies neck pain Cardiovascular: Reports no additional cardiovascular complaints, Denies chest pain, Denies leg edema and Denies dyspnea Respiratory: Reports no additional respiratory complaints, Denies cough and Denies dyspnea Gastrointestinal: Reports no additional gastrointestinal complaints, Reports abdominal pain, Reports diarrhea, Reports nausea and Denies vomiting Genitourinary: Denies urinary incontinence Musculoskeletal: Reports no additional musculoskeletal complaints, Denies back pain, Denies arthralgias, Denies joint swelling, Reports muscle cramps, Denies neck pain, Denies numbness, Denies tingling and Reports other (left wrist and hand painful and swollen) Skin/Breast: Reports system reviewed and no additional complaints, except as docu, Reports swelling, Reports erythema and Denies rash Reports system reviewed and no additional complaints, except as documented, Denies Abnormal speech present, Denies dizziness, Denies headache(s), Denies numbness, Denies tingling and Denies weakness Psychiatric: Reports anxiety, Reports depression, Denies hallucinations, Denies homicidal ideation and Reports suicidal ideation Mental Status Exam Mental Status Exam Narrative: Appearance: casually groomed, poor hygiene, appears in minimal discomfort due to opioid withdrawal Behavior: cooperative Psychomotor: no agitation or retardation noted but restless Speech: clear, normal rate/rhythm/volume, spontaneous TP: linear TC: no signs of psychosis, hopeless/helpless Mood: better Affect:brighter, congruent SI:passive, no plan or intent HI:denies AH/VH:denies Delusions:none Insight/judgment:fair x 2. Memory/cog: alert, oriented x 3. judgement : fair Diagnostics Vital Signs (24Hr): Vital Signs - 24 hr 08/29/20 18:00 08/29/20 22:13 08/30/20 06:00 Temperature 97.2 F 96.4 F L Pulse Rate 104 H 113 H 96 Respiratory Rate 18 Blood Pressure 131/80 129/86 128/77 Pulse Oximetry 96 08/30/20 11:01 Temperature Pulse Rate 118 H Respiratory Rate Blood Pressure 124/77 Pulse Oximetry Body Mass Index 33.2 Labs Results: 08/25/20 18:06 08/25/20 18:07 Medications Medications Current Medications Generic Name Dose Route Start Last Admin Trade Name Freq PRN Reason Stop Dose Admin Acetaminophen 650 mg 08/26/20 12:26 08/30/20 14:06 Acetaminophen 325 Mg Tablet PO 650 mg Q6H PRN Administration Headache/Pain Mild Scale (1-3) Al Hydroxide/Mg Hydroxide 30 ml 08/26/20 12:26 Magnesium Hydrox/Alum Hydrox 30 Ml Oral.Susp PO Q6H PRN Heartburn/Nausea Buprenorphine/Naloxone 1 film 08/27/20 11:42 08/30/20 08:06 Buprenorphine/Naloxone 8/2 Mg Film SUBLINGUAL 1 film BID RISSA Administration Buprenorphine/Naloxone 1 film 08/29/20 04:00 08/30/20 04:47 Buprenorphine/Naloxone 4/1 Mg Film SUBLINGUAL 1 film DAILY@0400 RISSA Administration Cephalexin HCl 500 mg 08/28/20 05:00 08/30/20 11:00 Cephalexin 500 Mg Capsule PO 500 mg Q6H RISSA Administration Clonidine HCl 0.1 mg 08/25/20 18:05 08/30/20 11:01 Clonidine Hcl 0.1 Mg Tablet PO 0.1 mg BID PRN Administration Anxiety Protocol Hydroxyzine HCl 25 mg 08/25/20 18:05 08/29/20 22:14 Hydroxyzine Hcl 25 Mg Tablet PO 25 mg BEDTIME PRN Administration Anxiety Hydroxyzine HCl 25 mg 08/26/20 12:26 Hydroxyzine Hcl 25 Mg Tablet PO BEDTIME PRN Anxiety Lorazepam 1 mg 08/25/20 18:05 08/30/20 11:00 Lorazepam 1 Mg Tablet PO 1 mg BID PRN Administration anxiety Magnesium Hydroxide 30 ml 08/26/20 12:26 Milk Of Magnesia 30 Ml Oral.Susp PO DAILY PRN Constipation Nicotine 21 mg 08/27/20 13:30 08/30/20 08:06 Nicotine 21 Mg Patch.Td24 TRANSDERMA 21 mg DAILY RISSA Administration Nicotine Polacrilex 2 mg 08/25/20 18:05 08/28/20 22:20 Nicotine Polacrilex 2 Mg Gum BUCCAL 2 mg Q2H PRN Administration Nicotine Cravings Ondansetron HCl 4 mg 08/28/20 10:44 08/30/20 08:07 Ondansetron Odt 4 Mg Tab.Rapdis TRANSLINGU 4 mg Q8H PRN Administration Nausea Paliperidone 9 mg 08/25/20 18:15 08/30/20 08:07 Paliperidone Er 9 Mg Tab.Er.24 PO 9 mg DAILY RISSA Administration Pharmacy Consult 1 each 08/25/20 15:30 Consult Rx Perform Med Rec MISCELLANE ONCE PRN Consult order Sertraline HCl 100 mg 08/25/20 18:15 08/30/20 08:07 Sertraline Hcl 100 Mg Tablet PO 100 mg DAILY RISSA Administration Trazodone HCl 50 mg 08/26/20 12:26 08/29/20 22:14 Trazodone Hcl 50 Mg Tablet PO 50 mg BEDTIME PRN Administration Insomnia Trimethoprim/Sulfamethoxazole 1 tab 08/27/20 09:00 08/30/20 08:07 Sulfamethox/Trimeth 800/160 1 Tab Tablet PO 1 tab Q12H RISSA Administration Allergies Allergies Allergy/AdvReac Type Severity Reaction Status Date / Time tomato [Tomato] Allergy Severe DIFFICULTY Verified 08/24/20 14:58 BREATHING, swelling of face and throat divalproex sodium Allergy Mild SEIZURES Verified 08/24/20 14:58 [From Depakote] olanzapine [From Zyprexa] Allergy Mild NIPPLES Verified 08/24/20 14:58 LEAK risperidone [From Risperdal] Allergy Mild UNKNOWN Verified 08/24/20 14:58 quetiapine [From SEROQUEL] Allergy Unknown HEART Verified 08/24/20 14:58 PALPITATIONS lithium [[place]] AdvReac Mild STOMACH Verified 08/24/20 14:58 PAIN aripiprazole [From ABILIFY] AdvReac Unknown DYSTONIA Verified 08/24/20 14:58 Assessment & Plan Assessment & Plan (1) MDD (major depressive disorder), recurrent, severe, with psychosis: Status: Acute Code(s): F33.3 - Major depressive disorder, recurrent, severe with psychotic symptoms Assessment and Plan: 1. continue sertraline, paliperidone. (2) Opioid use disorder, severe, dependence: Status: Acute Code(s): F11.20 - Opioid dependence, uncomplicated Assessment and Plan: 1. continue Suboxone 8mg/2mg SL BID and suboxone 4mg/1mg SL at 4am. (3) Left wrist pain: Status: Acute Code(s): M25.532 - Pain in left wrist Assessment and Plan: hospitalist consult monitor for infection Greater than 50% of the session was spent on counseling and/or coordination of care Reason for contiued inpatient stay Substantial Risk for: harm to self, inability to function, rapid decompensation and med/psych decompensation
[2020-08-30 18:00] VITALS: BP 113/70; PULSE 103; TEMP 36.2
[2020-08-31 02:05] VITALS: BP 125/81; PULSE 110; RESP 16; TEMP 36.2; O2SAT 99
[2020-08-31] MEDS: cloNIDine HCL 0.1 MG TABLET PO (02:05)
[2020-08-31] MEDS: Acetaminophen 325 MG TABLET 650 MG PO ×2 (02:06→09:46)
[2020-08-31] MEDS: traZODone HCL 50 MG TABLET PO (02:06)
[2020-08-31] MEDS: hydrOXYzine HCL 25 MG TABLET PO (02:06)
[2020-08-31] MEDS: Buprenorphine/Naloxone 4/1 mg FILM 1 FILM SUBLINGUAL (04:45)
[2020-08-31] MEDS: cephALEXin 500 MG CAPSULE PO ×2 (04:45→10:24)
[2020-08-31] MEDS: Paliperidone ER 9 MG TAB.ER.24 PO (08:17)
[2020-08-31] MEDS: Nicotine 21 MG PATCH.TD24 TRANSDERMA (08:17)
[2020-08-31] MEDS: Sertraline HCL 100 MG TABLET PO (08:17)
[2020-08-31] MEDS: Buprenorphine/Naloxone 8/2 mg FILM 1 FILM SUBLINGUAL (08:17)
[2020-08-31] MEDS: LORazepam 1 MG TABLET PO (10:24)
--- NOTE | 2020-08-31 12:02 | HO.PHPPROGNO ---
Subjective Subjective Date of Service: 08/31/20 Reason For Visit: SI Diagnostics Vital Signs (24Hr): Vital Signs - 24 hr 08/30/20 18:00 08/31/20 02:05 Temperature 97.1 F 97.2 F Pulse Rate 103 H 110 H Respiratory Rate 16 Blood Pressure 113/70 125/81 Pulse Oximetry 99 Body Mass Index 33.2 Labs Results: 08/25/20 18:06 08/25/20 18:07 Assessment & Plan Certification I certify that partial hospital treatment is medically necessary due to the symptoms and problems resulting from the patient's mental illness and the failure to treat the patient at the partial hospital level of care would likely result in the patient requiring inpatient psychiatric care which could not be prevented at a less intensive level of care. Greater than 50% of the session was spent on counseling and/or coordination of care Discharge Plan Discharge Patient Disposition: Home, Self-Care Discharge Diagnosis: MDD with psychosis Opioid Use Disorder Referrals: Jefry Robbins MD [Primary Care Provider] - 1 Week Discharge Medications: New clonidine HCl 0.1 mg Tablet 0.1 mg PO BID PRN (Reason: Anxiety) Qty: 14 RF: 0 trazodone 50 mg Tablet 50 mg PO BEDTIME PRN (Reason: Insomnia) 30 Days RF: 0 nicotine (polacrilex) 2 mg Gum 2 mg buccal Q2H PRN (Reason: Nicotine Cravings) Qty: 30 RF: 0 sertraline 100 mg Tablet 100 mg PO DAILY 30 Days Qty: 30 RF: 0 sulfamethoxazole-trimethoprim 800-160 mg Tablet 1 tab PO Q12H Qty: 8 RF: 0 cephalexin 500 mg Capsule 500 mg PO Q6H Qty: 31 RF: 0 ondansetron 4 mg Tablet,Disintegrating 4 mg translingual Q8H PRN (Reason: Nausea) Qty: 10 RF: 0 paliperidone [[place]] 9 mg Tablet Extended Release 24hr 9 mg PO DAILY 30 Days Qty: 30 RF: 0 buprenorphine-naloxone [Suboxone] 8-2 mg film 1 film sublingual BID Qty: 6 RF: 0 buprenorphine-naloxone [Suboxone] 4-1 mg film 1 film sublingual DAILY Qty: 3 RF: 0 Continued lorazepam 1 mg tablet 1 mg PO BID PRN (Reason: anxiety) Qty: 30 RF: 1 Discontinued nicotine (polacrilex) 2 mg Gum 2 mg buccal Q2H PRN (Reason: Nicotine Cravings) Qty: 90 RF: 0 hydroxyzine HCl 25 mg Tablet 25 mg PO BEDTIME PRN (Reason: Anxiety) Qty: 30 RF: 0 clonidine HCl 0.1 mg Tablet 0.1 mg PO BID PRN (Reason: Anxiety) Qty: 60 RF: 1 paliperidone 9 mg Tablet Extended Release 24hr 9 mg PO QAM Qty: 30 RF: 1 sertraline 100 mg Tablet 100 mg PO DAILY Qty: 30 RF: 1 sulfamethoxazole-trimethoprim [Bactrim DS] 800-160 mg tablet 1 tab PO Q12H Qty: 14 RF: 0 cephalexin 500 mg capsule 500 mg PO Q6H 10 Days Qty: 40 RF: 0 Discharge Orders: Discharge Order (Routine); Ordered 08/31/20 Ordered By: Sachi Edwards Diet: regular diet Activity on Discharge: As tolerated Stand Alone Forms: Patient Portal Discharge page Care Plan Goals: 1. maintain stable mood, without suicidal or AH 2. continue recovery substance treatment 3. carry narcan- harm reduction approach Health Concerns: 1. Follow up with PCP for hand cellulitis 2. Go to ED if swelling worsened or does not improve or if hand feels warm and increasingly more painful Plan of Treatment: 1. Follow up with referrals 2. Attend appointments at Suboxone clinic 3. Attend follow up appointments with psychiatric providers Assessment: Mr. Welch is more future oriented, no SI/HI. Wants to continue suboxone OP.
--- NOTE | 2020-08-31 12:07 | PM.PSYDC ---
DS: Providers Provider Date of Service: 09/15/20 <Sachi Edwards - Last Filed: 09/15/20 11:12> 09/21/20 <Kennedy Mitchell MD - Last Filed: 09/21/20 20:36> Date of admission: 08/26/20 12:26 <Sachi Edwards - Last Filed: 09/15/20 11:12> Primary care physician: Jefry Robbins MD <Sachi Kasperyesenia - Last Filed: 09/15/20 11:12> Consults: 08/30/20 12:21 Consult to Hospitalist Routine Consulting Provider: Hospitalist Reason For Exam: left wrist hand forearm pain increasing x 36 hours <Sachi Edwards - Last Filed: 09/15/20 11:12> DS: Diagnosis Discharge Diagnosis (1) MDD (major depressive disorder), recurrent, severe, with psychosis: Status: Acute <Sachi Edwards - Last Filed: 09/15/20 11:12> (2) Opioid use disorder, severe, dependence: Status: Acute <Sachi Edwards - Last Filed: 09/15/20 11:12> (3) Left wrist pain: Status: Deleted <Sachi Edwards - Last Filed: 09/15/20 11:12> DS: Medications Discharge Medications Home Medications: Previous Rx's Medication Instructions Recorded hydroxyzine HCl 25 mg PO BEDTIME PRN #30 tab 04/06/20 nicotine (polacrilex) 2 mg BUCCAL Q2H PRN #90 ea 04/06/20 clonidine HCl 0.1 mg PO BID PRN #60 tab 05/08/20 lorazepam 1 mg PO BID PRN #30 tab 05/08/20 paliperidone 9 mg PO QAM #30 tab 05/08/20 sertraline 100 mg PO DAILY #30 tab 05/08/20 cephalexin 500 mg PO Q6H 10 Days #40 cap 08/24/20 sulfamethoxazole-trimethoprim 1 tab PO Q12H #14 tab 08/24/20 [Bactrim DS] buprenorphine-naloxone [Suboxone] 1 film SUBLINGUAL BID #6 ea 08/31/20 buprenorphine-naloxone [Suboxone] 1 film SUBLINGUAL DAILY #3 ea 08/31/20 cephalexin 500 mg PO Q6H #31 cap 08/31/20 clonidine HCl 0.1 mg PO BID PRN #14 tab 08/31/20 nicotine (polacrilex) 2 mg BUCCAL Q2H PRN #30 ea 08/31/20 ondansetron 4 mg TRANSLINGUAL Q8H PRN #10 tab 08/31/20 paliperidone [Invega] 9 mg PO DAILY 30 Days #30 tab 08/31/20 sertraline 100 mg PO DAILY 30 Days #30 tab 08/31/20 sulfamethoxazole-trimethoprim 1 tab PO Q12H #8 tab 08/31/20 trazodone 50 mg PO BEDTIME PRN 30 Days tab 08/31/20 <Sachihilary Kasperyesenia - Last Filed: 09/15/20 11:12> Discharge Plan Discharge Patient Disposition: Home, Self-Care <Sachihilary Kasperyesenia - Last Filed: 09/15/20 11:12> Discharge Diagnosis: MDD with psychosis Opioid Use Disorder <Sachi Edwards - Last Filed: 09/15/20 11:12> MDD with psychosis Opioid Use Disorder <Kennedy Mitchell MD - Last Filed: 09/21/20 20:36> Referrals: [facility] [Other] - 09/01/20 6:30 pm [facility] [Other] - 09/15/20 2:[address] SIMMONS [Other] - 09/17/20 11:00 am Jefry Robbins MD [Primary Care Provider] - 1 Week <Sachihilary Kasperyesenia - Last Filed: 09/15/20 11:12> Discharge Medications: New clonidine HCl 0.1 mg Tablet 0.1 mg PO BID PRN (Reason: Anxiety) Qty: 14 RF: 0 trazodone 50 mg Tablet 50 mg PO BEDTIME PRN (Reason: Insomnia) 30 Days RF: 0 nicotine (polacrilex) 2 mg Gum 2 mg buccal Q2H PRN (Reason: Nicotine Cravings) Qty: 30 RF: 0 sertraline 100 mg Tablet 100 mg PO DAILY 30 Days Qty: 30 RF: 0 sulfamethoxazole-trimethoprim 800-160 mg Tablet 1 tab PO Q12H Qty: 8 RF: 0 cephalexin 500 mg Capsule 500 mg PO Q6H Qty: 31 RF: 0 ondansetron 4 mg Tablet,Disintegrating 4 mg translingual Q8H PRN (Reason: Nausea) Qty: 10 RF: 0 paliperidone [Invega] 9 mg Tablet Extended Release 24hr 9 mg PO DAILY 30 Days Qty: 30 RF: 0 buprenorphine-naloxone [Suboxone] 8-2 mg film 1 film sublingual BID Qty: 6 RF: 0 buprenorphine-naloxone [Suboxone] 4-1 mg film 1 film sublingual DAILY Qty: 3 RF: 0 Continued lorazepam 1 mg tablet 1 mg PO BID PRN (Reason: anxiety) Qty: 30 RF: 1 Discontinued nicotine (polacrilex) 2 mg Gum 2 mg buccal Q2H PRN (Reason: Nicotine Cravings) Qty: 90 RF: 0 hydroxyzine HCl 25 mg Tablet 25 mg PO BEDTIME PRN (Reason: Anxiety) Qty: 30 RF: 0 clonidine HCl 0.1 mg Tablet 0.1 mg PO BID PRN (Reason: Anxiety) Qty: 60 RF: 1 paliperidone 9 mg Tablet Extended Release 24hr 9 mg PO QAM Qty: 30 RF: 1 sertraline 100 mg Tablet 100 mg PO DAILY Qty: 30 RF: 1 sulfamethoxazole-trimethoprim [Bactrim DS] 800-160 mg tablet 1 tab PO Q12H Qty: 14 RF: 0 cephalexin 500 mg capsule 500 mg PO Q6H 10 Days Qty: 40 RF: 0 <Sachi Edwards - Last Filed: 09/15/20 11:12> Discharge Orders: Discharge Order (Routine); Ordered 08/31/20 Ordered By: Sachi Edwards <Sachi Edwards - Last Filed: 09/15/20 11:12> Diet: regular diet <Sachi Edwards - Last Filed: 09/15/20 11:12> regular diet <Kennedy Mitchell MD - Last Filed: 09/21/20 20:36> Activity on Discharge: As tolerated <Sachi Edwards - Last Filed: 09/15/20 11:12> As tolerated <Kennedy Mitchell MD - Last Filed: 09/21/20 20:36> Stand Alone Forms: Patient Portal Discharge page, Community Support <Sachi Edwards - Last Filed: 09/15/20 11:12> Care Plan Goals: 1. maintain stable mood, without suicidal or AH 2. continue recovery substance treatment 3. carry narcan- harm reduction approach <Sachi Edwards - Last Filed: 09/15/20 11:12> Health Concerns: 1. Follow up with PCP for hand cellulitis 2. Go to ED if swelling worsened or does not improve or if hand feels warm and increasingly more painful <Sachi Edwards - Last Filed: 09/15/20 11:12> Plan of Treatment: 1. Follow up with referrals 2. Attend appointments at Suboxone clinic 3. Attend follow up appointments with psychiatric providers <Sachi Edwards - Last Filed: 09/15/20 11:12> Assessment: Mr. Welch is more future oriented, no SI/HI. Wants to continue suboxone OP. <Sachi Edwards - Last Filed: 09/15/20 11:12> Discharge Date/Time: 08/31/20 13:35 <Sachi Edwards - Last Filed: 09/15/20 11:12> Mental Status Exam Mental Status Exam Narrative: Appearance: casually groomed, poor hygiene, appears in minimal discomfort due to opioid withdrawal Behavior: cooperative Psychomotor: no agitation or retardation noted but restless Speech: clear, normal rate/rhythm/volume, spontaneous TP: linear TC: no signs of psychosis, hopeless/helpless Mood: better Affect:brighter, congruent SI:passive, no plan or intent HI:denies AH/VH:denies Delusions:none Insight/judgment:fair x 2. Memory/cog: alert, oriented x 3. judgement : fair <Sachi Edwards - Last Filed: 09/15/20 11:12> Data Data Completed and Pending Completed studies during hospitalization [Text1]: 08/25/20 08/25/20 08/25/20 15:54 18:06 18:07 WBC 7.2 RBC 4.55 L Hgb 13.1 L Hct 39.2 L MCV 86.2 MCH 28.8 MCHC 33.4 RDW 13.9 Plt Count 176 D MPV 11.9 Immature Gran % (Auto) 0.4 Neut % (Auto) 63.7 Lymph % (Auto) 25.8 [place] % (Auto) 7.5 Eos % (Auto) 2.2 Baso % (Auto) 0.4 Lymph # (Auto) 1.9 [place] # (Auto) 0.5 Eos # (Auto) 0.2 Baso # (Auto) 0.0 Abs Immat Gran (auto) 0.03 Absolute Neuts (auto) 4.6 Absolute Nucleated RBC 0.000 Nucleated RBC % (auto) 0.0 Sodium 135 Potassium 4.0 Chloride 101 Carbon Dioxide 25 Anion Gap 13 BUN 17 H Creatinine 0.77 Estim Creat Clear Calc 156.0 Estimated GFR > 60 Random Glucose 118 H D Calcium 9.0 Total Bilirubin Direct Bilirubin AST ALT Alkaline Phosphatase Total Protein Albumin Urine Color Urine Appearance Urine pH Ur Specific [place] Urine Protein Urine Glucose (UA) Urine Ketones Urine Blood Urine Nitrite Ur Leukocyte Esterase Urine RBC Urine WBC Ur Squamous Epith Cells Uric Acid Crystals Urine Bacteria Salicylates Urine Opiates Screen Acetaminophen Ur Barbiturates Screen Ur Phencyclidine Scrn Ur Amphetamines Screen U Benzodiazepines Scrn Urine Cocaine Screen U Marijuana (THC) Screen Ethyl Alcohol COVID-19 (SHAYY) Negative COVID-19 [facility] Com See Note 08/25/20 08/25/20 08/26/20 18:07 18:07 06:42 WBC RBC Hgb Hct MCV MCH MCHC RDW Plt Count MPV Immature Gran % (Auto) Neut % (Auto) Lymph % (Auto) [place] % (Auto) Eos % (Auto) Baso % (Auto) Lymph # (Auto) [place] # (Auto) Eos # (Auto) Baso # (Auto) Abs Immat Gran (auto) Absolute Neuts (auto) Absolute Nucleated RBC Nucleated RBC % (auto) Sodium Potassium Chloride Carbon Dioxide Anion Gap BUN Creatinine Estim Creat Clear Calc Estimated GFR Random Glucose Calcium Total Bilirubin 0.5 Direct Bilirubin 0.2 AST 42 H ALT 51 H Alkaline Phosphatase 99 Total Protein 6.7 Albumin 3.8 Urine Color Urine Appearance Urine pH Ur Specific [place] Urine Protein Urine Glucose (UA) Urine Ketones Urine Blood Urine Nitrite Ur Leukocyte Esterase Urine RBC Urine WBC Ur Squamous Epith Cells Uric Acid Crystals Urine Bacteria Salicylates < 5.0 L Urine Opiates Screen POSITIVE H Acetaminophen 4 Ur Barbiturates Screen Not Detected Ur Phencyclidine Scrn Not Detected Ur Amphetamines Screen Not Detected U Benzodiazepines Scrn Not Detected Urine Cocaine Screen Not Detected U Marijuana (THC) Screen POSITIVE H Ethyl Alcohol < 10 COVID-19 (SHAYY) COVID-Intrusic 08/26/20 06:42 WBC RBC Hgb Hct MCV MCH MCHC RDW Plt Count MPV Immature Gran % (Auto) Neut % (Auto) Lymph % (Auto) [place] % (Auto) Eos % (Auto) Baso % (Auto) Lymph # (Auto) [place] # (Auto) Eos # (Auto) Baso # (Auto) Abs Immat Gran (auto) Absolute Neuts (auto) Absolute Nucleated RBC Nucleated RBC % (auto) Sodium Potassium Chloride Carbon Dioxide Anion Gap BUN Creatinine Estim Creat Clear Calc Estimated GFR Random Glucose Calcium Total Bilirubin Direct Bilirubin AST ALT Alkaline Phosphatase Total Protein Albumin Urine Color DARK YELLOW Urine Appearance HAZY Urine pH 6.0 Ur Specific [place] >= 1.030 H Urine Protein NEG Urine Glucose (UA) NEG Urine Ketones NEG Urine Blood NEG Urine Nitrite NEG Ur Leukocyte Esterase NEG Urine RBC 0 Urine WBC 0 Ur Squamous Epith Cells NONE Uric Acid Crystals 1+ Urine Bacteria NONE Salicylates Urine Opiates Screen Acetaminophen Ur Barbiturates Screen Ur Phencyclidine Scrn Ur Amphetamines Screen U Benzodiazepines Scrn Urine Cocaine Screen U Marijuana (THC) Screen Ethyl Alcohol COVID-19 (SHAYY) COVID-19 Clin Com <Sachi Edwards - Last Filed: 09/15/20 11:12> DS: Summary Hospital Course Hospital Course: Mr. Salas is a 40 year-old male with hx of MDD and opioid use disorder who self presented to [facility] ED on 08/25/2020 reporting increase symptoms of depression, suicidal ideation with plan to hang himself in setting of heroin use. Pt reports he thinks he is not on the right psych meds and therefore he self medicate with heroin. Of note, pt has hx of asking for adderral. In the ED, his utox was positive for opioids. On the unit, pt presented with active withdrawal symptoms including sweating, loose stools, muscle aches. He reports feeling depressed, anxious, suicidal ideation but denies any intent to hurt himself at the time. Mr. Welch initially requested detox with methadone. However, he later reported that he wanted to go back on suboxone and agreed to re-start suboxone. He reports in the past he has been on suboxone 20mg. He denied VH/AH, did not appear to be internally preoccupied. Past Psychiatric History: Inpatient: 01/07/2020-01/10/2020 M5; 12/09/2019 M5; 10/21/2019 M5 OP: none Suicide attempts: hx of suicide attempts- details not disclose. Medical Evaluation Reviewed: Yes HOSPITAL COURSE Mr. Salas was admitted on CV and placed on 15 minutes checks. Pt reported feeling depressed, hopeless/helpless, related to ongoing substance use. We discussed risks, benefits and alternative treatment options. He agreed to start paliperidone and sertraline. He reports intermittent AH, but it is unclear if these are substance induced. he also agreed to be restarted on suboxone as MAT. His affect gradually brighten. He reported decrease symptoms of depression, feeling more hopeful about his life and recovery. He denied suicidal ideation. He did not appear internally preoccupied. He was visible in the unit and attending groups. He was sleeping and eating well. He declined referrals for residential substance use treatment programs. <Sachi Edwards - Last Filed: 09/15/20 11:12> Time spent discussing smoking cessation with patient: 3 to 10 minutes <Sachi Edwards - Last Filed: 09/15/20 11:12> Status at Discharge Cognitive/behavioral status at discharge: No SI/HI. No signs of aggression towards self or others. Future oriented. <Sachi Edwards - Last Filed: 09/15/20 11:12> Functional status at discharge: independent ambulation <Sachi Edwards - Last Filed: 09/15/20 11:12> Overall status at discharge: patient is progressing back to baseline <Sachi Edwards - Last Filed: 09/15/20 11:12> Time Spent with Patient Time attestation: Total time spent providing and/or coordinating discharge services: <Sachi Edwards - Last Filed: 09/15/20 11:12> Time spent: Greater than 30 minutes <Sachi Edwards - Last Filed: 09/15/20 11:12>
--- NOTE | 2020-08-31 13:04 | PC.NURSE ---
PT IS AWARE AND READY FOR DISCHARGE. PT HAS BEEN IN BEHAVIORAL CONTROL. HE HAS BEEN VISIBLE ON THE UNIT AND SOCIAL WITH PEERS. PT IS GOAL ORIENTED. PT REPORTS A SIGNIFICANT DECREASE IN WITHDRAWAL SYMTPOMS. HE CURRENTLY DENIES ANY URGES FOR SUBSTANCE USE. PT HAS BEEN TAKING CARE OF ADLS INDEPENDENTLY. HE IS EATING AND SLEEPING WELL. PT HAS BEEN ATTENDING GROUPS. HE REPORTS NO DEPRESSION. PT RATED HIS ANXIETY A 2/10. HE IS MEDICATION COMPLIANT. 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 PT DENIES SUICIDAL OR HOMICIDAL IDEATIONS. HE DENIES AUDITORY AND VISUAL HALLUCINATIONS. PT FEELS SAFE. PTS PAPERWORK WILL BE FAXED TO PROVIDERS PER PROTOCOL. PTS APPOINTMENTS HAVE BEEN SCHEDULED.
== END 2020-08-31 13:35 | disposition home or self-care (01) | DRG 751 ==
LOC: HO.ED 15:27 → HO.PM5 08-26 14:30
PROVIDERS: Emergency Medicine; Nurse Practitioner Family; Admitting Provider Psychiatry & Neurology Psychiatry; Emergency Provider Emergency Medicine; PCP Family Medicine; Visit Provider Social Worker
DX: F33.3 Major depressive disorder, recurrent, severe with psychotic symptoms (principal); R45.851 Suicidal ideations; F11.20 Opioid dependence, uncomplicated; M25.532 Pain in left wrist; F17.210 Nicotine dependence, cigarettes, uncomplicated; Z20.822 Contact with and (suspected) exposure to COVID-19; Z79.899 Other long term (current) drug therapy
CPT/HCPCS: 36415; 80048; 80076; 80143; 80179; 80307; 80320; 81001; 85025; 87635; 93005; 96372; 99285; J1885

== ENCOUNTER 2021-04-18 11:45 | Inpatient (IN) | payer OTHER, SELFPAY ==
[2021-04-18 11:50] VITALS: BP 143/97; PULSE 98; RESP 20; TEMP 36.1; O2SAT 98; BMI 65.7
--- NOTE | 2021-04-18 12:24 | ED.PSYCH ---
HPI - Psych General Chief Complaint: Psychiatric Symptoms <Lelia Quarles NP - Last Filed: 04/18/21 20:51> Stated Complaint: Crisis <Lelia Quarles NP - Last Filed: 04/18/21 20:51> Time Seen by Provider: 04/18/21 12:14 <Lelia Quarles NP - Last Filed: 04/18/21 20:51> Source: patient <Lelia Quarles NP - Last Filed: 04/18/21 20:51> Mode of arrival: ambulatory <Lelia Quarles NP - Last Filed: 04/18/21 20:51> Limitations: no limitations <Lelia Quarles NP - Last Filed: 04/18/21 20:51> History of Present Illness HPI Narrative: 40-year-old male with a history of hypertension, OCD, PTSD, anxiety disorder, polysubstance abuse here with reports of feeling suicidal with plans to hang himself. No homicidal ideation. No hallucinations. Patient has a history of using both heroin and cocaine for several years. He was doing well until 2 months ago when he started using drugs again. Patient has been using 10-15 bags of heroin sniffing daily. Also intermittently using cocaine. Patient tells me for the last 4 weeks he has tried to use Suboxone to alleviate his withdrawal symptoms but continues to put himself into precipitated withdrawal. Patient tells me he has waited as long as 50 hours before starting Suboxone but still it puts him in to withdrawal symptoms. Last use of heroin was 07:00. Patient tells me that most of his heroin has fentanyl in it as well. No physical complaints Has not received a COVID vaccine <Lelia Quarles NP - Last Filed: 04/18/21 20:51> Related Data Home Medications: Home Medications Medication Instructions Recorded Confirmed No Known Home Meds 04/18/21 04/18/21 <Lelia Quarles NP - Last Filed: 04/18/21 20:51> Allergies/Adverse Reactions: Allergies Allergy/AdvReac Type Severity Reaction Status Date / Time tomato [Tomato] Allergy Severe DIFFICULTY Verified 08/24/20 14:58 BREATHING, swelling of face and throat divalproex sodium Allergy Mild SEIZURES Verified 08/24/20 14:58 [From Depakote] olanzapine [From Zyprexa] Allergy Mild NIPPLES Verified 08/24/20 14:58 LEAK risperidone [From Risperdal] Allergy Mild UNKNOWN Verified 08/24/20 14:58 quetiapine [From SEROQUEL] Allergy Unknown HEART Verified 08/24/20 14:58 PALPITATIONS lithium [[place]] AdvReac Mild STOMACH Verified 08/24/20 14:58 PAIN aripiprazole [From ABILIFY] AdvReac Unknown DYSTONIA Verified 08/24/20 14:58 <Lelia Quarles NP - Last Filed: 04/18/21 20:51> Review of Systems Review of Systems: Yes all other systems are reviewed and are negative <Lelia Quarles NP - Last Filed: 04/18/21 20:51> Constitutional: Constitutional: Reports no additional constitutional complaints, Denies body ache(s), Denies chills, Denies fever(s), Denies headache(s) and Denies weakness <Lelia Quarles NP - Last Filed: 04/18/21 20:51> Eyes: Eyes: Reports no additional eye complaints and Denies change in vision <Lelia Quarles NP - Last Filed: 04/18/21 20:51> ENT: Reports system reviewed and no additional complaints, except as documented, Denies dizziness, Denies headache(s), Denies nasal congestion, Denies nasal discharge and Denies neck pain <SHAHNAZ Cunha Last Filed: 04/18/21 20:51> Cardiovascular: Cardiovascular: Reports no additional cardiovascular complaints, Denies chest pain, Denies leg edema and Denies dyspnea <Lelia Quarles NP - Last Filed: 04/18/21 20:51> Respiratory: Respiratory: Reports no additional respiratory complaints, Denies cough and Denies dyspnea <Lelia Quarles NP - Last Filed: 04/18/21 20:51> Gastrointestinal: Gastrointestinal: Reports no additional gastrointestinal complaints, Denies abdominal pain, Denies diarrhea, Denies nausea and Denies vomiting <SHAHNAZ Cunha Last Filed: 04/18/21 20:51> Genitourinary: Genitourinary: Denies urinary incontinence <Lelia Quarles NP - Last Filed: 04/18/21 20:51> Musculoskeletal: Musculoskeletal: Reports no additional musculoskeletal complaints, Denies back pain, Denies arthralgias, Denies joint swelling, Denies neck pain, Denies numbness and Denies tingling <Lelia Quarles NP - Last Filed: 04/18/21 20:51> Integumentary/Breasts: Skin/Breast: Reports system reviewed and no additional complaints, except as docu and Denies rash <Lelia Quarles NP - Last Filed: 04/18/21 20:51> Neurologic: Reports system reviewed and no additional complaints, except as documented, Denies Abnormal speech present, Denies dizziness, Denies headache(s), Denies numbness, Denies tingling and Denies weakness <Lelia Quarles NP - Last Filed: 04/18/21 20:51> Psychiatric: Psychiatric: Reports irritability and Reports suicidal ideation <Lelia Quarles NP - Last Filed: 04/18/21 20:51> [facility] Past Medical History Attestation statement: The following information was validated with the patient. <Lelia Quarles NP - Last Filed: 04/18/21 20:51> Source: old records reviewed and nursing notes reviewed <Lelia Quarles NP - Last Filed: 04/18/21 20:51> Medical History: Medical History Cocaine use disorder HTN (hypertension) OCD (obsessive compulsive disorder) Panic anxiety syndrome Post traumatic stress disorder (PTSD) <Lelia Quarles NP - Last Filed: 04/18/21 20:51> Social History Social History: Social History Household Members: None Household Members Other:: MOTHER Housing: Apartment Do you presently have visiting nurse or other home services: No Unable to assess alcohol history related to: Unknown Alcohol intake: never Patient Tobacco Use Status: Current everyday Tobacco user Cigarette Packs Per Day: 1 Cigarettes Per Day: 20.0 Years Smoked: 30 Second Hand Smoke Exposure: No Use of substances other than those prescribed or required for medical reasons: Yes Substance Use Type: Heroin and Opiates Advance Directives: No Advance Directives Information Provided: Yes service: No Sexual orientation: did not discuss <Lelia Quarles NP - Last Filed: 04/18/21 20:51> Physical Exam Vital Signs: Vital Signs: Last Vital Signs Temp 97.8 F 04/19/21 01:31 Pulse 75 04/19/21 01:31 Resp 16 04/19/21 01:31 BP 117/93 H 04/19/21 01:31 Pulse Ox 96 04/19/21 01:31 BMI result Body Mass Index 65.7 <Lelia Quarles NP - Last Filed: 04/18/21 20:51> Vital Signs: Last Vital Signs Temp 97.8 F 04/19/21 01:31 Pulse 75 04/19/21 01:31 Resp 16 04/19/21 01:31 BP 117/93 H 04/19/21 01:31 Pulse Ox 96 04/19/21 01:31 BMI result Body Mass Index 65.7 <GERALD King - Last Filed: 04/19/21 08:29> Const: General: cooperative, healthy appearing, comfortable and no acute distress <Lelia Quarles NP - Last Filed: 04/18/21 20:51> Orientation/consciousness: patient oriented x3 <Lelia Quarles NP - Last Filed: 04/18/21 20:51> Limitations: no limitations <Lelia Quarles NP - Last Filed: 04/18/21 20:51> HENMT: Head: Yes normal to inspection <Lelia Quarles NP - Last Filed: 04/18/21 20:51> Ears: hearing grossly normal bilaterally and TM's normal bilaterally <Lelia Quarles NP - Last Filed: 04/18/21 20:51> General nose exam: Normal external nose present <SHAHNAZ Cunha Last Filed: 04/18/21 20:51> Face and sinus: Yes normal facial exam <Lelia Quarles NP - Last Filed: 04/18/21 20:51> Mouth: Normal oral and palatal mucosa present <Lelia Quarles NP - Last Filed: 04/18/21 20:51> Throat: Yes posterior oropharynx normal, Yes tonsils normal and Yes uvula midline <Lelia Quarles NP - Last Filed: 04/18/21 20:51> Eyes: General: appearance normal, both eyes and all related structures <Lelia Quarles NP - Last Filed: 04/18/21 20:51> Pupils: Equal, round and reactive pupils present <Lelia Quarles NP - Last Filed: 04/18/21 20:51> Neck: Neck: Yes normal visual inspection <Lelia Quarles NP - Last Filed: 04/18/21 20:51> Chest: Chest palpation & inspection: normal inspection of the chest <Lelia Quarles NP - Last Filed: 04/18/21 20:51> Resp: Effort & Inspection: normal respiratory effort <Lelia Quarles NP - Last Filed: 04/18/21 20:51> Auscultation: clear to auscultation bilaterally <Lelia Quarles NP - Last Filed: 04/18/21 20:51> Cardio: Rate: regular rate <Lelia Quarles NP - Last Filed: 04/18/21 20:51> Rhythm: regular rhythm <Lelia Quarles NP - Last Filed: 04/18/21 20:51> Peripheral pulses: Peripheral pulses 2+ throughout <Lelia Quarles NP - Last Filed: 04/18/21 20:51> GI: Inspection: Yes normal to inspection <Lelia Quarles NP - Last Filed: 04/18/21 20:51> Palpation (GI): Soft to palpation and nontender <Lelia Quarles NP - Last Filed: 04/18/21 20:51> Auscultation: normal bowel sounds <Lelia Quarles NP - Last Filed: 04/18/21 20:51> Back/Spine/Pelvis: Thoracic/Lumbar Spine: thoracic and lumbar spine normal to inspection <Lelia Quarles NP - Last Filed: 04/18/21 20:51> Skin: General skin exam: no rashes or lesions noted <Lelia Quarles NP - Last Filed: 04/18/21 20:51> Neuro: Other: +irritable, restless <Lelia Quarles NP - Last Filed: 04/18/21 20:51> General: patient oriented x3, no focal motor deficits and normal sensation to monofilament <Lelia Quarles NP - Last Filed: 04/18/21 20:51> Cranial nerves: Yes CN's II-XII intact bilaterally and Yes Equal, round and reactive pupils present <Lelia Quarles NP - Last Filed: 04/18/21 20:51> Cognition (Neuro): normal cognition <Lelia Quarles NP - Last Filed: 04/18/21 20:51> Speech: No Abnormal speech present <Lelia Quarles NP - Last Filed: 04/18/21 20:51> Gait exam (Neuro): Normal gait present <Lelia Quarles NP - Last Filed: 04/18/21 20:51> Motor exam (neuro): 5/5 motor strength present throughout <Lelia Quarles NP - Last Filed: 04/18/21 20:51> Sensory Exam: Normal double simultaneous stimulation for sensation <Lelia Quarles NP - Last Filed: 04/18/21 20:51> Extrem: General: Yes normal to inspection <Lelia Quarles NP - Last Filed: 04/18/21 20:51> Course Course Course Narrative: 40-year-old male here with reports of suicidal ideations with plan to hang himself. Patient has been off his psychiatric medications for several months and recently relapsed on heroin. Patient is feeling some mild withdrawal symptoms of irritability and restlessness. No other physical complaints. Will need labs, drug screen, COVID screen No concern for acute ingestion or trauma Will have nursing check cows score. Patient has tried to take Suboxone over the last month but due to him using fentanyl he has put himself into precipitated withdrawal. His last use of heroin was 07:00 so it is too soon to give him Suboxone. Will dose with methadone 20 mg which patient is agreeable to. 1800-reviewed labs and drug screen. Patient is currently pending a crisis evaluation. Placed in physician observation pending disposition. 2100-sign out to night team pending above <Lelia Quarles NP - Last Filed: 04/18/21 20:51> MDM - Psych Medical Records Attestation: I reviewed the patient's medical records. <Lelia Quarles NP - Last Filed: 04/18/21 20:51> Lab Data Attestation: I reviewed the patient's lab results. <Lelia Quarles NP - Last Filed: 04/18/21 20:51> Result diagrams: : 04/18/21 14:59 04/18/21 14:59 <Lelia Quarles NP - Last Filed: 04/18/21 20:51> Labs: Lab Results 04/18/21 04/18/21 04/18/21 Range/Units 14:59 14:59 14:59 WBC 4.4 L (4.8-10.8) X10*3/uL RBC 4.13 L (4.60-5.80) X10*6/uL Hgb 12.3 L (14.0-18.0) g/dl Hct 37.4 L (42.0-52.0) % MCV 90.6 (80.0-98.0) fL MCH 29.8 (27.0-33.0) pg MCHC 32.9 (31.0-36.0) g/dl RDW 11.8 (11.0-16.0) % Plt Count 157 L (160-400) X10*3/uL MPV 11.6 (9.4-12.4) fL Immature Gran % (Auto) 0.2 (0.0-0.4) % Neut % (Auto) 61.7 (45-73) % Lymph % (Auto) 28.9 (20-40) % [place] % (Auto) 5.5 (2-11) % Eos % (Auto) 3.2 (0-4) % Baso % (Auto) 0.5 (0-2) % Lymph # (Auto) 1.3 (1.2-4.9) X10*3/uL [place] # (Auto) 0.2 (0.1-1.2) X10*3/uL Eos # (Auto) 0.1 (0.0-0.4) X10*3/uL Baso # (Auto) 0.0 (0.0-0.2) X10*3/uL Abs Immat Gran (auto) 0.01 (0.00-0.03) X10*3/uL Absolute Neuts (auto) 2.7 (2.0-8.3) x10*3/uL Absolute Nucleated RBC 0.000 (0.0-0.012) X10*3/uL Nucleated RBC % (auto) 0.0 (0.0-0.2) /100WBC Sodium 138 (135-145) mmol/L Potassium 3.7 (3.3-5.1) mmol/L Chloride 105 (96-108) mmol/L Carbon Dioxide 27 (22-29) mmol/L Anion Gap 10 L (12-20) BUN 9 (9-16) mg/dL Creatinine 0.71 (0.5-1.4) mg/dL Estim Creat Clear Calc 257.9 Estimated GFR > 60 Random Glucose 161 H D (60-115) mg/dL Calcium 8.9 (8.4-10.2) mg/dL Total Bilirubin < 0.2 (0.0-1.0) mg/dL Direct Bilirubin < 0.2 (0.0-0.5) mg/dL AST 25 D (5-37) U/L ALT 33 (0-40) U/L Alkaline Phosphatase 85 (39-117) U/L Total Protein 6.1 L (6.5-8.0) g/dL Albumin 3.5 (3.5-5.0) g/dL Urine Opiates Screen (Not Detect) Urine Fentanyl Screen (Not Detect) Ur Barbiturates Screen (Not Detect) Ur Phencyclidine Scrn (Not Detect) Ur Amphetamines Screen (Not Detect) U Benzodiazepines Scrn (Not Detect) Urine Cocaine Screen (Not Detect) U Marijuana (THC) Screen (Not Detect) Ethyl Alcohol mg/dL COVID-19 (SHAYY) Negative (Negative) COVID-19 Clin Com See Note 04/18/21 04/18/21 Range/Units 14:59 16:04 WBC (4.8-10.8) X10*3/uL RBC (4.60-5.80) X10*6/uL Hgb (14.0-18.0) g/dl Hct (42.0-52.0) % MCV (80.0-98.0) fL MCH (27.0-33.0) pg MCHC (31.0-36.0) g/dl RDW (11.0-16.0) % Plt Count (160-400) X10*3/uL MPV (9.4-12.4) fL Immature Gran % (Auto) (0.0-0.4) % Neut % (Auto) (45-73) % Lymph % (Auto) (20-40) % [place] % (Auto) (2-11) % Eos % (Auto) (0-4) % Baso % (Auto) (0-2) % Lymph # (Auto) (1.2-4.9) X10*3/uL [place] # (Auto) (0.1-1.2) X10*3/uL Eos # (Auto) (0.0-0.4) X10*3/uL Baso # (Auto) (0.0-0.2) X10*3/uL Abs Immat Gran (auto) (0.00-0.03) X10*3/uL Absolute Neuts (auto) (2.0-8.3) x10*3/uL Absolute Nucleated RBC (0.0-0.012) X10*3/uL Nucleated RBC % (auto) (0.0-0.2) /100WBC Sodium (135-145) mmol/L Potassium (3.3-5.1) mmol/L Chloride (96-108) mmol/L Carbon Dioxide (22-29) mmol/L Anion Gap (12-20) BUN (9-16) mg/dL Creatinine (0.5-1.4) mg/dL Estim Creat Clear Calc Estimated GFR Random Glucose (60-115) mg/dL Calcium (8.4-10.2) mg/dL Total Bilirubin (0.0-1.0) mg/dL Direct Bilirubin (0.0-0.5) mg/dL AST (5-37) U/L ALT (0-40) U/L Alkaline Phosphatase (39-117) U/L Total Protein (6.5-8.0) g/dL Albumin (3.5-5.0) g/dL Urine Opiates Screen POSITIVE H (Not Detect) Urine Fentanyl Screen POSITIVE H (Not Detect) Ur Barbiturates Screen Not Detected (Not Detect) Ur Phencyclidine Scrn Not Detected (Not Detect) Ur Amphetamines Screen Not Detected (Not Detect) U Benzodiazepines Scrn Not Detected (Not Detect) Urine Cocaine Screen Not Detected (Not Detect) U Marijuana (THC) Screen POSITIVE H (Not Detect) Ethyl Alcohol < 10 mg/dL COVID-19 (SHAYY) (Negative) COVID-19 Clin Com <Lelia Quarles NP - Last Filed: 04/18/21 20:51> Lab Results 04/18/21 04/18/21 04/18/21 Range/Units 14:59 14:59 14:59 WBC 4.4 L (4.8-10.8) X10*3/uL RBC 4.13 L (4.60-5.80) X10*6/uL Hgb 12.3 L (14.0-18.0) g/dl Hct 37.4 L (42.0-52.0) % MCV 90.6 (80.0-98.0) fL MCH 29.8 (27.0-33.0) pg MCHC 32.9 (31.0-36.0) g/dl RDW 11.8 (11.0-16.0) % Plt Count 157 L (160-400) X10*3/uL MPV 11.6 (9.4-12.4) fL Immature Gran % (Auto) 0.2 (0.0-0.4) % Neut % (Auto) 61.7 (45-73) % Lymph % (Auto) 28.9 (20-40) % [place] % (Auto) 5.5 (2-11) % Eos % (Auto) 3.2 (0-4) % Baso % (Auto) 0.5 (0-2) % Lymph # (Auto) 1.3 (1.2-4.9) X10*3/uL [place] # (Auto) 0.2 (0.1-1.2) X10*3/uL Eos # (Auto) 0.1 (0.0-0.4) X10*3/uL Baso # (Auto) 0.0 (0.0-0.2) X10*3/uL Abs Immat Gran (auto) 0.01 (0.00-0.03) X10*3/uL Absolute Neuts (auto) 2.7 (2.0-8.3) x10*3/uL Absolute Nucleated RBC 0.000 (0.0-0.012) X10*3/uL Nucleated RBC % (auto) 0.0 (0.0-0.2) /100WBC Sodium 138 (135-145) mmol/L Potassium 3.7 (3.3-5.1) mmol/L Chloride 105 (96-108) mmol/L Carbon Dioxide 27 (22-29) mmol/L Anion Gap 10 L (12-20) BUN 9 (9-16) mg/dL Creatinine 0.71 (0.5-1.4) mg/dL Estim Creat Clear Calc 257.9 Estimated GFR > 60 Random Glucose 161 H D (60-115) mg/dL Calcium 8.9 (8.4-10.2) mg/dL Total Bilirubin < 0.2 (0.0-1.0) mg/dL Direct Bilirubin < 0.2 (0.0-0.5) mg/dL AST 25 D (5-37) U/L ALT 33 (0-40) U/L Alkaline Phosphatase 85 (39-117) U/L Total Protein 6.1 L (6.5-8.0) g/dL Albumin 3.5 (3.5-5.0) g/dL Urine Opiates Screen (Not Detect) Urine Fentanyl Screen (Not Detect) Ur Barbiturates Screen (Not Detect) Ur Phencyclidine Scrn (Not Detect) Ur Amphetamines Screen (Not Detect) U Benzodiazepines Scrn (Not Detect) Urine Cocaine Screen (Not Detect) U Marijuana (THC) Screen (Not Detect) Ethyl Alcohol mg/dL COVID-19 (SHAYY) Negative (Negative) COVID-19 Clin Com See Note 04/18/21 04/18/21 Range/Units 14:59 16:04 WBC (4.8-10.8) X10*3/uL RBC (4.60-5.80) X10*6/uL Hgb (14.0-18.0) g/dl Hct (42.0-52.0) % MCV (80.0-98.0) fL MCH (27.0-33.0) pg MCHC (31.0-36.0) g/dl RDW (11.0-16.0) % Plt Count (160-400) X10*3/uL MPV (9.4-12.4) fL Immature Gran % (Auto) (0.0-0.4) % Neut % (Auto) (45-73) % Lymph % (Auto) (20-40) % [place] % (Auto) (2-11) % Eos % (Auto) (0-4) % Baso % (Auto) (0-2) % Lymph # (Auto) (1.2-4.9) X10*3/uL [place] # (Auto) (0.1-1.2) X10*3/uL Eos # (Auto) (0.0-0.4) X10*3/uL Baso # (Auto) (0.0-0.2) X10*3/uL Abs Immat Gran (auto) (0.00-0.03) X10*3/uL Absolute Neuts (auto) (2.0-8.3) x10*3/uL Absolute Nucleated RBC (0.0-0.012) X10*3/uL Nucleated RBC % (auto) (0.0-0.2) /100WBC Sodium (135-145) mmol/L Potassium (3.3-5.1) mmol/L Chloride (96-108) mmol/L Carbon Dioxide (22-29) mmol/L Anion Gap (12-20) BUN (9-16) mg/dL Creatinine (0.5-1.4) mg/dL Estim Creat Clear Calc Estimated GFR Random Glucose (60-115) mg/dL Calcium (8.4-10.2) mg/dL Total Bilirubin (0.0-1.0) mg/dL Direct Bilirubin (0.0-0.5) mg/dL AST (5-37) U/L ALT (0-40) U/L Alkaline Phosphatase (39-117) U/L Total Protein (6.5-8.0) g/dL Albumin (3.5-5.0) g/dL Urine Opiates Screen POSITIVE H (Not Detect) Urine Fentanyl Screen POSITIVE H (Not Detect) Ur Barbiturates Screen Not Detected (Not Detect) Ur Phencyclidine Scrn Not Detected (Not Detect) Ur Amphetamines Screen Not Detected (Not Detect) U Benzodiazepines Scrn Not Detected (Not Detect) Urine Cocaine Screen Not Detected (Not Detect) U Marijuana (THC) Screen POSITIVE H (Not Detect) Ethyl Alcohol < 10 mg/dL COVID-19 (SHAYY) (Negative) COVID-19 Clin Com <GERALD King - Last Filed: 04/19/21 08:29> Discharge Plan Discharge Clinical Impression: Suicidal ideation <Lelia Quarles NP - Last Filed: 04/18/21 20:51> Patient Disposition: Still a Patient <Lelia Quarles NP - Last Filed: 04/18/21 20:51> Prescriptions: No Action No Known Home Meds RF: 0 <Lelia Quarles NP - Last Filed: 04/18/21 20:51>
[2021-04-18] MEDS: Nicotine 21 MG PATCH.TD24 TRANSDERMA (13:30)
[2021-04-18] MEDS: methADONE HCl 20 MG/2 ML ORAL.CONC PO (13:30)
--- NOTE | 2021-04-18 14:00 | PHA.MEDREC ---
Pharmacy Consult ? Medication Reconciliation PT DOES NOT TAKE ANY PRESCRIPTIONS, VITAMINS, OR SUPPLEMENTS Pharmacy has completed the medication reconciliation.
[2021-04-18 15:05] LABS: MANUAL DIFF FLAG NO
[2021-04-18 15:06] LABS: Basophils Percent Auto 0.5 % (0-2); Eosinophils Absolute Auto 0.1 X10*3/uL (0.0-0.4); Eosinophils Percent Auto 3.2 % (0-4); Hematocrit 37.4 % (42.0-52.0); Hemoglobin 12.3 g/dl (14.0-18.0); Imm Gran Abs Auto 0.01 X10*3/uL (0.00-0.03); Imm Gran Pct Auto 0.2 % (0.0-0.4); Lymphocytes Absolute Auto 1.3 X10*3/uL (1.2-4.9); Lymphocytes Percent Auto 28.9 % (20-40); Mean Corpuscular HGB Conc 32.9 g/dl (31.0-36.0); Mean Corpuscular Hemoglobin 29.8 pg (27.0-33.0); Mean Corpuscular Volume 90.6 fL (80.0-98.0); Mean Platelet Volume 11.6 fL (9.4-12.4); Monocytes Absolute Auto 0.2 X10*3/uL (0.1-1.2); Monocytes Percent Auto 5.5 % (2-11); Neutrophils Absolute Auto 2.7 x10*3/uL (2.0-8.3); Neutrophils Percent Auto 61.7 % (45-73); Platelet Count 157 X10*3/uL (160-400); Red Blood Count 4.13 X10*6/uL (4.60-5.80); Red Cell Distribution Width 11.8 % (11.0-16.0); White Blood Count 4.4 X10*3/uL (4.8-10.8)
[2021-04-18 15:17] LABS: IDNOW Serial# 9DD0AD1C
[2021-04-18 15:18] LABS: COVID-19 Test Negative (Negative); Ethanol < 10 mg/dL
[2021-04-18 15:22] LABS: Alanine Aminotransferase 33 U/L (0-40); Albumin Level 3.5 g/dL (3.5-5.0); Alkaline Phosphatase 85 U/L (39-117); Anion Gap 10 (12-20); Aspartate Amino Transferase 25 U/L (5-37); Bilirubin Direct < 0.2 mg/dL (0.0-0.5); Bilirubin Total < 0.2 mg/dL (0.0-1.0); Blood Urea Nitrogen 9 mg/dL (9-16); Calcium 8.9 mg/dL (8.4-10.2); Carbon Dioxide 27 mmol/L (22-29); Chloride 105 mmol/L (96-108); Creatinine Clr Calc Pharmacy 257.9; Estimated Glomerular Filt Rate > 60; Glucose Random 161 mg/dL (60-115); Potassium 3.7 mmol/L (3.3-5.1); Sodium 138 mmol/L (135-145); Total Protein 6.1 g/dL (6.5-8.0)
[2021-04-18 16:26] LABS: Amphetamine Screen Urine Not Detected (Not Detect); Barbiturates, Urine Not Detected (Not Detect); Benzodiazepines Screen Urine Not Detected (Not Detect); Cannabinoid Screen Urine POSITIVE (Not Detect); Cocaine Screen Urine Not Detected (Not Detect); Fentanyl, urine POSITIVE (Not Detect); Opiate Screen Urine POSITIVE (Not Detect); Phencyclidine Screen Urine Not Detected (Not Detect)
[2021-04-18 17:16] VITALS: BP 106/60; PULSE 69; RESP 16; TEMP 36.4; O2SAT 96
[2021-04-19 01:31] VITALS: BP 117/93; PULSE 75; RESP 16; TEMP 36.6; O2SAT 96
[2021-04-19 01:43] VITALS: PULSE 77
[2021-04-19] MEDS: LORazepam 1 MG TABLET 2 MG PO (01:56)
--- NOTE | 2021-04-19 05:12 | PC.NURSE ---
Patient slept through the night, assessed for COW scored 8, provider notified/ordered/administered Ativan 2 mg at 0156 with + effect, patient was very cooperative with N assessment, disposition per [facility] is section 12 inpatient bed search, patient and provider agreement with plan, currently sleeping asymptomatic of withdrawal, VSS, will continue to monitor.
--- NOTE | 2021-04-19 07:24 | PC.NURSE ---
UP TO BR. BKFST EATEN. RESTING ON BED. BEDSEARCH CONTINUES
[2021-04-19 08:28] VITALS: BP 137/90; PULSE 70; RESP 14; TEMP 36.7; O2SAT 92
[2021-04-19] MEDS: methADONE HCl 20 MG/2 ML ORAL.CONC PO (09:01)
[2021-04-19] MEDS: methADONE HCl 20 MG/2 ML ORAL.CONC 10 MG PO (12:24)
--- NOTE | 2021-04-19 12:57 | HO.ADDICT_ITS ---
History of Present Illness Date of Service: 04/19/2021 Chief Complaint: Crisis Reason for Consult: OUD Requesting physician: Ruma Garcia Discussed with referring provider: Yes Sources of Information: patient interviewed and chart reviewed HPI Narrative: Per H&P1: ? 40-year-old male here with reports of suicidal ideations with plan to hang himself.? Patient has been off his psychiatric medications for several months and recently relapsed on heroin.? Patient is feeling some mild withdrawal symptoms of irritability and restlessness.? No other physical complaints.? Will need labs, drug screen, COVID screen No concern for acute ingestion or trauma Will have nursing check cows score.? Patient has tried to take Suboxone over the last month but due to him using fentanyl he has put himself into precipitated withdrawal.? His last use of heroin was 07:00 so it is too soon to give him Suboxone.? Will dose with methadone 20 mg which patient is agreeable to. Patient seen by this lead technical writer earlier this AM. He reports that his goal is to transition back to suboxone, but he is very anxious given the challenges he has had trying to do it on his own outpatient. He is reporting mild withdrawal sx of anxiety and restlessness and occasional chills. He denies nausea or vomiting. Methadone 20mg administered this AM with good effect--feels that he needs a bit more. Past Psychiatric History: Inpatient: 01/07/2020-01/10/2020 M5; 12/09/2019 M5; 10/21/2019 M5 OP: none Suicide attempts: hx of suicide attempts- details not disclose. Review of Systems Constitutional: Reports as per HPI Diagnostics Vital Signs (24Hr): Vital Signs - 24 hr 04/18/21 17:16 04/19/21 01:31 04/19/21 08:28 Temperature 97.5 F 97.8 F 98.1 F Pulse Rate 69 75 70 Respiratory Rate 16 16 14 Blood Pressure 106/60 117/93 H 137/90 H Pulse Oximetry 96 96 92 BMI result Body Mass Index 65.7 Labs Results: 04/18/21 14:59 04/18/21 14:59 Labs: Laboratory Results - last 48 hr 04/18/21 04/18/21 04/18/21 14:59 14:59 14:59 WBC 4.4 L RBC 4.13 L Hgb 12.3 L Hct 37.4 L MCV 90.6 MCH 29.8 MCHC 32.9 RDW 11.8 Plt Count 157 L MPV 11.6 Immature Gran % (Auto) 0.2 Neut % (Auto) 61.7 Lymph % (Auto) 28.9 [place] % (Auto) 5.5 Eos % (Auto) 3.2 Baso % (Auto) 0.5 Lymph # (Auto) 1.3 [place] # (Auto) 0.2 Eos # (Auto) 0.1 Baso # (Auto) 0.0 Abs Immat Gran (auto) 0.01 Absolute Neuts (auto) 2.7 Absolute Nucleated RBC 0.000 Nucleated RBC % (auto) 0.0 Sodium 138 Potassium 3.7 Chloride 105 Carbon Dioxide 27 Anion Gap 10 L BUN 9 Creatinine 0.71 Estim Creat Clear Calc 257.9 Estimated GFR > 60 Random Glucose 161 H D Calcium 8.9 Total Bilirubin < 0.2 Direct Bilirubin < 0.2 AST 25 D ALT 33 Alkaline Phosphatase 85 Total Protein 6.1 L Albumin 3.5 Urine Opiates Screen Urine Fentanyl Screen Ur Barbiturates Screen Ur Phencyclidine Scrn Ur Amphetamines Screen U Benzodiazepines Scrn Urine Cocaine Screen U Marijuana (THC) Screen Ethyl Alcohol COVID-19 (SHAYY) Negative COVID-19 Clin Com See Note 04/18/21 04/18/21 14:59 16:04 WBC RBC Hgb Hct MCV MCH MCHC RDW Plt Count MPV Immature Gran % (Auto) Neut % (Auto) Lymph % (Auto) [place] % (Auto) Eos % (Auto) Baso % (Auto) Lymph # (Auto) [place] # (Auto) Eos # (Auto) Baso # (Auto) Abs Immat Gran (auto) Absolute Neuts (auto) Absolute Nucleated RBC Nucleated RBC % (auto) Sodium Potassium Chloride Carbon Dioxide Anion Gap BUN Creatinine Estim Creat Clear Calc Estimated GFR Random Glucose Calcium Total Bilirubin Direct Bilirubin AST ALT Alkaline Phosphatase Total Protein Albumin Urine Opiates Screen POSITIVE H Urine Fentanyl Screen POSITIVE H Ur Barbiturates Screen Not Detected Ur Phencyclidine Scrn Not Detected Ur Amphetamines Screen Not Detected U Benzodiazepines Scrn Not Detected Urine Cocaine Screen Not Detected U Marijuana (THC) Screen POSITIVE H Ethyl Alcohol < 10 COVID-19 (SHAYY) COVID-19 Clin Com Mental Status Exam Mental Status Exam Patient Appearance: Appropriate Patient Orientation: Person, Place, Time and Situation Level of Consciousness: Awake and Appropriate Patient Behavior: Appropriate and Anxious Mood Description: Anxious Affect Description: Anxious Thought Process: Rumination and Goal Oriented Judgement: Fair Medications Medications Current Medications Lorazepam (Lorazepam 1 Mg Tablet) 2 mg PO Q6H PRN PRN Reason: anxiety Methadone HCl (Methadone Hcl 20 Mg/2 Ml Oral.Conc) 20 mg PO DAILY RISSA Last Admin: 04/19/21 09:01 Dose: 20 mg Documented by: Pharmacy Consult (Consult Rx Perform Med Rec) 1 each MISCELLANE ONCE PRN PRN Reason: Consult order Allergies Allergies Allergy/AdvReac Type Severity Reaction Status Date / Time tomato [Tomato] Allergy Severe DIFFICULTY Verified 08/24/20 14:58 BREATHING, swelling of face and throat divalproex sodium Allergy Mild SEIZURES Verified 08/24/20 14:58 [From Depakote] olanzapine [From Zyprexa] Allergy Mild NIPPLES Verified 08/24/20 14:58 LEAK risperidone [From Risperdal] Allergy Mild UNKNOWN Verified 08/24/20 14:58 quetiapine [From SEROQUEL] Allergy Unknown HEART Verified 08/24/20 14:58 PALPITATIONS lithium [[place]] AdvReac Mild STOMACH Verified 08/24/20 14:58 PAIN aripiprazole [From ABILIFY] AdvReac Unknown DYSTONIA Verified 08/24/20 14:58 Assessment & Plan Assessment & Plan (1) Opioid use disorder, severe, dependence: Status: Acute Code(s): F11.20 - Opioid dependence, uncomplicated Assessment and Plan: * another 10mg methadone administered at noon (total of 30mg today) * tomorrow methadone 40mg * plan was originally to start microdosing and cross titrating with suboxone, but after discussion with patient he is declining this option as he fears precipitated withdrawal. Attempted to alleviate patients concerns reagarding withdrawal sx, but he was not open to that at this time. He wishes to continue with methadoen for another full day then start transition to suboxone * orders in for methadone this evening and tomorrow morning. * Should not go any higher than 40mg if plan is to d/c methadone I spent ___50___ minutes with the patient and/or on the patient floor today, greater than?50% of which was spent counseling/coordinating care. [facility] Past Medical History Medical History Cocaine use disorder HTN (hypertension) OCD (obsessive compulsive disorder) Panic anxiety syndrome Post traumatic stress disorder (PTSD) Social History Social History Household Members: None Household Members Other:: MOTHER Housing: Apartment Do you presently have visiting nurse or other home services: No Unable to assess alcohol history related to: Unknown Alcohol intake: never Patient Tobacco Use Status: Current everyday Tobacco user Cigarette Packs Per Day: 1 Cigarettes Per Day: 20.0 Years Smoked: 30 Second Hand Smoke Exposure: No Use of substances other than those prescribed or required for medical reasons: Yes Substance Use Type: Heroin and Opiates Advance Directives: No Advance Directives Information Provided: Yes service: No Sexual orientation: did not discuss
[2021-04-19] MEDS: Nicotine 21 MG PATCH.TD24 TRANSDERMA (14:10)
--- NOTE | 2021-04-19 17:42 | PC.NURSE ---
Pt alert and oriented x4, calm and cooperative. Pt denies pain. Pt ambulating without issues. Pt resting comfortably in bed. Will continue to monitor.
[2021-04-19] MEDS: methADONE HCl 20 MG/2 ML ORAL.CONC 5 MG PO (21:14)
--- NOTE | 2021-04-20 | ECG_ITS ---
Test Reason : med clearance Blood Pressure : / mmHG Vent. Rate : 089 BPM Atrial Rate : 089 BPM P-R Int : 140 ms QRS Dur : 086 ms QT Int : 362 ms P-R-T Axes : 025 012 036 degrees QTc Int : 440 ms Normal sinus rhythm Normal ECG When compared with ECG of 26-AUG-2020 08:52, No significant change was found Referred By: Ruma Garcia Electronically Signed By:COREY MENDOSA
[2021-04-20] MEDS: LORazepam 1 MG TABLET PO ×3 (02:18→16:22)
[2021-04-20 02:25] VITALS: BP 148/88; PULSE 100; RESP 17; TEMP 36.4; O2SAT 99
--- NOTE | 2021-04-20 05:53 | PC.NURSE ---
Patient slept through the night, PRN Ativan 2 mg administered as ordered with + effect, behavior appropriate and cooperative, medication compliant, disposition per [facility] is section 12 inpatient bed search, no bed search update at this time, asymptomatic of withdrawal, VSS, will continue to monitor.
--- NOTE | 2021-04-20 07:14 | PC.NURSE ---
patient appears to remain asleep at present respirations are even and unlabored patient appears in no distress
[2021-04-20 07:34] VITALS: BP 119/74; PULSE 82; RESP 14; TEMP 36.6; O2SAT 96
[2021-04-20] MEDS: methADONE HCl 20 MG/2 ML ORAL.CONC 40 MG PO (07:52)
[2021-04-20] MEDS: Nicotine 21 MG PATCH.TD24 TRANSDERMA (13:15)
[2021-04-20 14:19] LABS: COVID-19 Test Negative (Negative)
[2021-04-20 16:00] VITALS: PULSE 113
[2021-04-20 16:20] VITALS: BP 124/87; PULSE 113; RESP 16; TEMP 36.6
[2021-04-20 16:33] VITALS: BP 124/87; PULSE 113; RESP 16; TEMP 36.6; O2SAT 99
--- NOTE | 2021-04-20 16:53 | PC.ADMIT ---
Addendum entered by Mery Dawkins RN 04/20/21 17:35: TOX screen was NEGATIVE for cocaine and benzos on 04/18/2021 Original Note: PT is a 40 y.o. male with a diagnosis of schizoeffective disorder-bipolar type as well opioid use disorder (severe). PT arrived on the unit at 14:40 via wheelchair from the [facility] ER and admitted on a conditional voluntary basis. PT self present to the ER with SI with plan and command hallucinations telling him to hang himself. PT reports being off of psych meds for months and recent use of approx 5 bags of heroin per day. PT is disabled, receives SSI and resides alone in an apartment in [place]. COVID neg x 2, TOX screen + for opiates, fentanyl, benzos and cocaine although pt does deny cocaine use. VS stable T 98.7 BP 124/87 HR 113 and O2 99% on RA. PT is calm and cooperative for the admission process although limited information was given due to PT feeling overwhelmed. COWS score is 10 at 16:00. Currently feeling safe, no SI/HI, AH/VH. Safety tool not done due to pt feeling anxiety and overwhelmed, will need to be done.
--- NOTE | 2021-04-20 17:38 | PC.NURSE ---
COWS score 10. Ativan 1mg given with + effect. PT resting in his room at this time.
--- NOTE | 2021-04-20 20:02 | P.PNADD_ITS ---
Subjective Subjective Date of Service: 04/20/21 Reason For Visit: Crisis Interim History: Patient reports feeling good with 40mg Requesting to start taper tomorrow at 35mg Still experiencing some anxiety--tolerable Review of Systems Constitutional: Reports as per HPI Mental Status Exam Mental Status Exam Patient Appearance: Appropriate Patient Orientation: Person, Place, Time and Situation Level of Consciousness: Awake and Appropriate Patient Behavior: Appropriate and Anxious Mood Description: Anxious Affect Description: Anxious Thought Process: Rumination and Goal Oriented Judgement: Fair Diagnostics Vital Signs (24Hr): Vital Signs - 24 hr 04/20/21 02:25 04/20/21 07:34 04/20/21 16:20 Temperature 97.6 F 97.9 F 97.8 F Pulse Rate 100 82 113 H Respiratory Rate 17 14 16 Blood Pressure 148/88 H 119/74 124/87 Pulse Oximetry 99 96 04/20/21 16:33 Temperature 97.8 F Pulse Rate 113 H Respiratory Rate 16 Blood Pressure 124/87 Pulse Oximetry 99 BMI result Body Mass Index 65.7 Labs Results: 04/18/21 14:59 04/18/21 14:59 Labs: Laboratory Results - last 48 hr 04/20/21 13:57 COVID-19 (SHAYY) Negative COVID-19 Clin Com See Note Medications Medications Current Medications Acetaminophen (Acetaminophen 325 Mg Tablet) 650 mg PO Q6H PRN PRN Reason: Headache/Pain Mild Scale (1-3) Al Hydroxide/Mg Hydroxide (Magnesium Hydrox/Alum Hydrox 30 Ml Oral.Susp) 30 ml PO Q6H PRN PRN Reason: Heartburn/Nausea Hydroxyzine HCl (Hydroxyzine Hcl 25 Mg Tablet) 25 mg PO BEDTIME PRN PRN Reason: Anxiety Lorazepam (Lorazepam 1 Mg Tablet) 1 mg PO Q6H PRN PRN Reason: anxiety Last Admin: 04/20/21 16:22 Dose: 1 mg Documented by: Magnesium Hydroxide (Milk Of Magnesia 30 Ml Oral.Susp) 30 ml PO DAILY PRN PRN Reason: Constipation Methadone HCl (Methadone Hcl 20 Mg/2 Ml Oral.Conc) 35 mg PO ONCE ONE Stop: 04/21/21 08:01 Multivitamins/Vitamin C (Multivitamin Tablet) 1 tab PO DAILY RISSA Nicotine (Nicotine 21 Mg Patch.Td24) 21 mg TRANSDERMA DAILY PRN PRN Reason: smoking cessation Last Admin: 04/20/21 13:15 Dose: 21 mg Documented by: Pharmacy Consult (Consult Rx Perform Med Rec) 1 each MISCELLANE ONCE PRN PRN Reason: Consult order Trazodone HCl (Trazodone Hcl 50 Mg Tablet) 50 mg PO BEDTIME PRN PRN Reason: Insomnia Allergies Allergies Allergy/AdvReac Type Severity Reaction Status Date / Time tomato [Tomato] Allergy Severe DIFFICULTY Verified 08/24/20 14:58 BREATHING, swelling of face and throat divalproex sodium Allergy Mild SEIZURES Verified 08/24/20 14:58 [From Depakote] olanzapine [From Zyprexa] Allergy Mild NIPPLES Verified 08/24/20 14:58 LEAK risperidone [From Risperdal] Allergy Mild UNKNOWN Verified 08/24/20 14:58 quetiapine [From SEROQUEL] Allergy Unknown HEART Verified 08/24/20 14:58 PALPITATIONS lithium [[place]] AdvReac Mild STOMACH Verified 08/24/20 14:58 PAIN aripiprazole [From ABILIFY] AdvReac Unknown DYSTONIA Verified 08/24/20 14:58 Assessment & Plan Assessment & Plan (1) Opioid use disorder, severe, dependence: Status: Acute Code(s): F11.20 - Opioid dependence, uncomplicated Assessment and Plan: * will taper methadone to 35mg tomorrow * will discuss microdosing again tomorrow and see if patient is receptive to starting I spent ___15___ minutes with the patient and/or on the patient floor today, greater than?50% of which was spent counseling/coordinating care.
[2021-04-21 06:00] VITALS: BP 111/73; PULSE 77; RESP 16; TEMP 36.4; O2SAT 98
[2021-04-21] MEDS: LORazepam 1 MG TABLET PO ×3 (06:59→17:14)
[2021-04-21 08:00] VITALS: PULSE 113
[2021-04-21] MEDS: methADONE HCl 20 MG/2 ML ORAL.CONC 35 MG PO (08:04)
[2021-04-21] MEDS: Multivitamin TABLET 1 TAB PO (08:05)
[2021-04-21] MEDS: Nicotine 21 MG PATCH.TD24 TRANSDERMA (08:51)
[2021-04-21 09:03] LABS: Estimated Average Glucose 103 mg/dL; Hemoglobin A1c % 5.2 %
[2021-04-21 09:14] LABS: Cholesterol 179 mg/dL; HDL Cholesterol 64 mg/dL; LDL Cholesterol Calculated 98 mg/dl; Magnesium 2.2 mg/dL (1.6-2.6); Triglycerides 86 mg/dL
[2021-04-21 09:37] LABS: Free T4 (Free Thyroxine) 0.87 ng/dL (0.71-1.85); Thyroid Stimulating Hormone 0.41 uIU/mL (0.32-4.0)
[2021-04-21 09:51] LABS: Folate 17.8 ng/mL (> or = 4.0); Vitamin B12 479 pg/mL (200-900)
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
[2021-04-21] MEDS: cloNIDine HCL 0.1 MG TABLET PO (15:30)
[2021-04-21] MEDS: Cyclobenzaprine HCl 10 MG TABLET PO (15:30)
[2021-04-21] MEDS: Paliperidone ER 3 MG TAB.ER.24 PO (15:31)
[2021-04-22] MEDS: LORazepam 1 MG TABLET PO ×3 (03:37→16:58)
[2021-04-22 06:00] VITALS: BP 119/72; PULSE 106; RESP 14; TEMP 36.9; O2SAT 98
[2021-04-22] MEDS: Paliperidone ER 3 MG TAB.ER.24 PO (08:26)
[2021-04-22] MEDS: Multivitamin TABLET 1 TAB PO (08:26)
[2021-04-22] MEDS: Nicotine 21 MG PATCH.TD24 TRANSDERMA (08:33)
--- NOTE | 2021-04-22 09:23 | P.PNPSI_ITS ---
Subjective Subjective Date of Service: 04/22/21 Reason For Visit: Crisis Interim History: this morning, pt changed his mind and wanted to taper down further on Methadone before switching to suboxone. Pt was irritable with nursing staff but once got methadone calmed down. Patient was eager to get back on medication to help with anxiety; he felt zoloft was not all that helpful, but upon review, pt had never been on higher dose than 100mg; he decided to retry Zoloft and get to a higher dose rather than try a new med. Pt also asked to get back on Adderall which he says he's been on since a kid and that it helps with withdrawal. Review of [facility] and med rec shows pt has been on this before pt says AH remain; says SI is pretty much gone. . Mental Status Exam Mental Status Exam Narrative: Pt is alert and oriented; behavior is cooperative, friendly; patient in mild withdrawal; dressed in casual attire, wearing hat, scruffy shaw but adequate hygiene; mood is described as anxious and affect congruent; eye contact appropriate; Speech is normal rate, volume and prosody and not pressured; no psychomotor agitation/retardation present; thought process is organized and goal directed; Thought content is on tx and with paranoid delusions that people are talking about him; otherwise pertinent to relevant topics; passive SI; denies HI;? AH that say disparaging things; telegraph others thoughts. ?Patients insight and judgment are impaired. Diagnostics Vital Signs (24Hr): Vital Signs - 24 hr 04/22/21 06:00 Temperature 98.5 F Pulse Rate 106 H Respiratory Rate 14 Blood Pressure 119/72 Pulse Oximetry 98 BMI result Body Mass Index 65.7 Labs Results: 04/18/21 14:59 04/18/21 14:59 Labs: Laboratory Results - last 48 hr 04/20/21 04/21/21 04/21/21 13:57 08:24 08:24 Estimat Average Glucose 103 Hemoglobin A1c % 5.2 Magnesium 2.2 Triglycerides 86 Cholesterol 179 LDL Cholesterol, Calc 98 HDL Cholesterol 64 Vitamin B12 Folate TSH 0.41 Free T4 0.87 COVID-19 ([facility]) Negative COVID-19 Clin Com See Note 04/21/21 08:24 Estimat Average Glucose Hemoglobin A1c % Magnesium Triglycerides Cholesterol LDL Cholesterol, Calc HDL Cholesterol Vitamin B12 479 Folate 17.8 TSH Free T4 COVID-19 ([facility]) COVID-19 Clin Com Medications Medications Current Medications Acetaminophen (Acetaminophen 325 Mg Tablet) 650 mg PO Q6H PRN PRN Reason: Headache/Pain Mild Scale (1-3) Al Hydroxide/Mg Hydroxide (Magnesium Hydrox/Alum Hydrox 30 Ml Oral.Susp) 30 ml PO Q6H PRN PRN Reason: Heartburn/Nausea Clonidine HCl (Clonidine Hcl 0.1 Mg Tablet) 0.1 mg PO Q4H PRN; Protocol PRN Reason: anxiety/withdrawal Last Admin: 04/21/21 15:30 Dose: 0.1 mg Documented by: Cyclobenzaprine HCl (Cyclobenzaprine Hcl 10 Mg Tablet) 10 mg PO QID PRN PRN Reason: muscle cramps Last Admin: 04/21/21 15:30 Dose: 10 mg Documented by: Dicyclomine HCl (Dicyclomine Hcl 10 Mg Capsule) 10 mg PO QID PRN PRN Reason: abdomnial cramps Loperamide HCl (Loperamide Hcl 2 Mg Capsule) 4 mg PO Q4H PRN PRN Reason: Loose Stool Lorazepam (Lorazepam 1 Mg Tablet) 1 mg PO Q4H PRN PRN Reason: anxiety Last Admin: 04/22/21 08:26 Dose: 1 mg Documented by: Magnesium Hydroxide (Milk Of Magnesia 30 Ml Oral.Susp) 30 ml PO DAILY PRN PRN Reason: Constipation Methadone HCl (Methadone Hcl 10 Mg Tablet) 30 mg PO ONCE ONE Stop: 04/22/21 09:22 Multivitamins/Vitamin C (Multivitamin Tablet) 1 tab PO DAILY [facility] Last Admin: 04/22/21 08:26 Dose: 1 tab Documented by: Nicotine (Nicotine 21 Mg Patch.Td24) 21 mg TRANSDERMA DAILY PRN PRN Reason: smoking cessation Last Admin: 04/22/21 08:33 Dose: 21 mg Documented by: Ondansetron HCl (Ondansetron Odt 4 Mg Tab.Rapdis) 4 mg TRANSLINGU Q6H PRN PRN Reason: nausea/vomiting Paliperidone (Paliperidone Er 3 Mg Tab.Er.24) 3 mg PO DAILY [facility] Last Admin: 04/22/21 08:26 Dose: 3 mg Documented by: Pharmacy Consult (Consult Rx Perform Med Rec) 1 each MISCELLANE ONCE PRN PRN Reason: Consult order Trazodone HCl (Trazodone Hcl 50 Mg Tablet) 50 mg PO BEDTIME PRN PRN Reason: Insomnia Allergies Allergies Allergy/AdvReac Type Severity Reaction Status Date / Time tomato [Tomato] Allergy Severe DIFFICULTY Verified 08/24/20 14:58 BREATHING, swelling of face and throat divalproex sodium Allergy Mild SEIZURES Verified 08/24/20 14:58 [From Depakote] olanzapine [From Zyprexa] Allergy Mild NIPPLES Verified 08/24/20 14:58 LEAK risperidone [From Risperdal] Allergy Mild UNKNOWN Verified 08/24/20 14:58 quetiapine [From SEROQUEL] Allergy Unknown HEART Verified 08/24/20 14:58 PALPITATIONS lithium [[place]] AdvReac Mild STOMACH Verified 08/24/20 14:58 PAIN aripiprazole [From ABILIFY] AdvReac Unknown DYSTONIA Verified 08/24/20 14:58 Assessment & Plan Assessment & Plan (1) Schizoaffective disorder: Qualifiers: Schizoaffective disorder type: depressive Qualified Code(s): F25.1 - Schizoaffective disorder, depressive type Status: Chronic Code(s): F25.9 - Schizoaffective disorder, unspecified (2) Post traumatic stress disorder (PTSD): Status: Acute Code(s): F43.10 - Post-traumatic stress disorder, unspecified (3) ADHD: Status: Acute Code(s): F90.9 - Attention-deficit hyperactivity disorder, unspecified type (4) Opioid use disorder, severe, dependence: Status: Acute Code(s): F11.20 - Opioid dependence, uncomplicated Assessment and Plan: IMPRESSION: pt is a 40 yo male with hx of schizoaffective disorder, depressed type, ptsd and opiod abuse who presents for worsening depression, ptsd symptoms, AH and delusional thinking in face of being off meds for months and relapse on heroin.? -treat psychosis and depression -treat w/drawal; methadone 30mg ~ suboxone 24mg; taper methadone; once pt in high w/drawal will convert to suboxone. -SI resolved; still has AH and in w/drawal PLAN: CV Q15 min checks start Paliperidone 3mg daily for AH/paranoid delusions START Zoloft 25mg; titrate to 150mg START Adderall ER 20mg BID 8am and 1pm Restart Methadone 30mg; pt wants to taper down to 20 or 15mg and then tansition to suboxone. Trazodone for insomnia Clonidine 0.1mg prn for withdrawal symptoms and anxiety cyclobenzaprine/bentyl/imodium/zofran comfort meds I spent minutes with the patient and/or on the patient floor today, g reater than?50% of which was spent counseling/coordinating care. Reason for contiued inpatient stay Substantial Risk for: rapid decompensation
[2021-04-22] MEDS: methADONE HCl 20 MG/2 ML ORAL.CONC 30 MG PO (09:33)
[2021-04-22] MEDS: cloNIDine HCL 0.1 MG TABLET PO ×2 (11:24→19:50)
[2021-04-22] MEDS: Cyclobenzaprine HCl 10 MG TABLET PO ×2 (11:24→19:50)
[2021-04-22] MEDS: Dextroamphetamine/Amphetamine XR 10 MG CAP.ER.24H 20 MG PO (13:07)
[2021-04-22] MEDS: Sertraline HCL 25 MG TABLET PO (13:07)
[2021-04-22 18:33] VITALS: BP 115/64; PULSE 138; RESP 20; TEMP 36.1; O2SAT 99
[2021-04-22] MEDS: traZODone HCL 100 MG TABLET PO (19:51)
[2021-04-23] MEDS: Paliperidone ER 3 MG TAB.ER.24 PO ×2 (08:22→12:17)
[2021-04-23] MEDS: Dextroamphetamine/Amphetamine XR 10 MG CAP.ER.24H 20 MG PO ×2 (08:22→12:57)
[2021-04-23] MEDS: Sertraline HCL 25 MG TABLET PO (08:23)
[2021-04-23] MEDS: Multivitamin TABLET 1 TAB PO (08:23)
[2021-04-23] MEDS: Nicotine 21 MG PATCH.TD24 TRANSDERMA (08:24)
[2021-04-23] MEDS: methADONE HCl 20 MG/2 ML ORAL.CONC 25 MG PO (08:27)
--- NOTE | 2021-04-23 09:27 | P.EN_ITS ---
Event Note Date of Service: 04/23/21 Event Note: Late entry: Discussed case with attending psychiatric provider on 04/21. Discussed this writers recommendation to microdose/cross titrate suboxone with goal of d/c methadone. patient quite reluctant to initiate any dose of buprenorphien given history of precipitated withdrawal in the community. This typewriter ribbon winder attempted to assure patient that risk of this occurring was extremely low and provided tentative dosing plan. Attending provider reported that he would be taking over and transitioning patient to suboxone. This typewriter ribbon winder signed off this case at that time.
--- NOTE | 2021-04-23 12:10 | HO.PSYCHPN ---
Subjective Subjective Date of Service: 04/23/21 Reason For Visit: Crisis Interim History: Patient reports he is feeling a bit better. He said that Adderall is really helping him reduce withdrawal symptoms. He says he feels more calm on it and that it mitigates anxiety. Patient said that on Adderall he has not needed Ativan or clonidine. Patient would like to go to methadone 20 mg and then discontinue methadone and transition to Suboxone. Reports auditory hallucinations remain the same and he agrees to continue titrating Invega to his previous dose of 9 mg daily. Patient denies any SI. He says his depression seems to be better and he denies nightmares or flashbacks. Mental Status Exam Mental Status Exam Narrative: Pt is alert and oriented; behavior is cooperative, friendly, calm; dressed in casual attire, wearing hat, scruffy shaw? but adequate hygiene; mood is described as a bit better and affect congruent; eye contact appropriate; Speech is normal rate, volume and prosody and not pressured; no psychomotor agitation/retardation present; thought process is organized and goal directed; Thought content is on tx; some paranoid delusions that people are talking about him; otherwise pertinent to relevant topics; denies SI; denies HI;? AH that say disparaging things; telegraph others thoughts. ?Patients insight and judgment are impaired but are adequate and improving. Diagnostics Vital Signs (24Hr): Vital Signs - 24 hr 04/22/21 18:33 Temperature 97.0 F Pulse Rate 138 H Respiratory Rate 20 Blood Pressure 115/64 Pulse Oximetry 99 BMI result Body Mass Index 65.7 Labs Results: 04/18/21 14:59 04/18/21 14:59 Medications Medications Current Medications Acetaminophen (Acetaminophen 325 Mg Tablet) 650 mg PO Q6H PRN PRN Reason: Headache/Pain Mild Scale (1-3) Al Hydroxide/Mg Hydroxide (Magnesium Hydrox/Alum Hydrox 30 Ml Oral.Susp) 30 ml PO Q6H PRN PRN Reason: Heartburn/Nausea Amphetamine/Dextroamphetamine (Dextroamphetamine/Amphetamine Xr 10 Mg Cap.Er.24h) 20 mg PO BID@0830,1330 RISSA Last Admin: 04/23/21 08:22 Dose: 20 mg Documented by: Clonidine HCl (Clonidine Hcl 0.1 Mg Tablet) 0.1 mg PO Q4H PRN; Protocol PRN Reason: anxiety/withdrawal Last Admin: 04/22/21 19:50 Dose: 0.1 mg Documented by: Cyclobenzaprine HCl (Cyclobenzaprine Hcl 10 Mg Tablet) 10 mg PO QID PRN PRN Reason: muscle cramps Last Admin: 04/22/21 19:50 Dose: 10 mg Documented by: Dicyclomine HCl (Dicyclomine Hcl 10 Mg Capsule) 10 mg PO QID PRN PRN Reason: abdomnial cramps Loperamide HCl (Loperamide Hcl 2 Mg Capsule) 4 mg PO Q4H PRN PRN Reason: Loose Stool Lorazepam (Lorazepam 1 Mg Tablet) 1 mg PO TID PRN PRN Reason: anxiety Last Admin: 04/22/21 16:58 Dose: 1 mg Documented by: Magnesium Hydroxide (Milk Of Magnesia 30 Ml Oral.Susp) 30 ml PO DAILY PRN PRN Reason: Constipation Methadone HCl (Methadone Hcl 20 Mg/2 Ml Oral.Conc) 20 mg PO DAILY [facility] Multivitamins/Vitamin C (Multivitamin Tablet) 1 tab PO DAILY [facility] Last Admin: 04/23/21 08:23 Dose: 1 tab Documented by: Nicotine (Nicotine 21 Mg Patch.Td24) 21 mg TRANSDERMA DAILY PRN PRN Reason: smoking cessation Last Admin: 04/23/21 08:24 Dose: 21 mg Documented by: Ondansetron HCl (Ondansetron Odt 4 Mg Tab.Rapdis) 4 mg TRANSLINGU Q6H PRN PRN Reason: nausea/vomiting Paliperidone (Paliperidone Er 6 Mg Tab.Er.24) 6 mg PO DAILY [facility] Pharmacy Consult (Consult Rx Perform Med Rec) 1 each MISCELLANE ONCE PRN PRN Reason: Consult order Sertraline HCl (Sertraline Hcl 50 Mg Tablet) 50 mg PO DAILY [facility] Trazodone HCl (Trazodone Hcl 100 Mg Tablet) 100 mg PO BEDTIME [facility] Last Admin: 04/22/21 19:51 Dose: 100 mg Documented by: Allergies Allergies Allergy/AdvReac Type Severity Reaction Status Date / Time tomato [Tomato] Allergy Severe DIFFICULTY Verified 08/24/20 14:58 BREATHING, swelling of face and throat divalproex sodium Allergy Mild SEIZURES Verified 08/24/20 14:58 [From Depakote] olanzapine [From Zyprexa] Allergy Mild NIPPLES Verified 08/24/20 14:58 LEAK risperidone [From Risperdal] Allergy Mild UNKNOWN Verified 08/24/20 14:58 quetiapine [From SEROQUEL] Allergy Unknown HEART Verified 08/24/20 14:58 PALPITATIONS lithium [[place]red] AdvReac Mild STOMACH Verified 08/24/20 14:58 PAIN aripiprazole [From ABILIFY] AdvReac Unknown DYSTONIA Verified 08/24/20 14:58 Assessment & Plan Assessment & Plan (1) Schizoaffective disorder: Qualifiers: Schizoaffective disorder type: depressive Qualified Code(s): F25.1 - Schizoaffective disorder, depressive type Status: Chronic Code(s): F25.9 - Schizoaffective disorder, unspecified (2) Post traumatic stress disorder (PTSD): Status: Acute Code(s): F43.10 - Post-traumatic stress disorder, unspecified (3) ADHD: Status: Acute Code(s): F90.9 - Attention-deficit hyperactivity disorder, unspecified type (4) Opioid use disorder, severe, dependence: Status: Acute Code(s): F11.20 - Opioid dependence, uncomplicated Assessment and Plan: IMPRESSION: pt is a 40 yo male with hx of schizoaffective disorder, depressed type, ptsd and opiod abuse who presents for worsening depression, ptsd symptoms, AH and delusional thinking in face of being off meds for months and relapse on heroin.? -treat psychosis and depression -treat w/drawal; methadone 30mg ~ suboxone 24mg; taper methadone; once pt in high w/drawal will convert to suboxone. -SI resolved; still has AH; mild w/drawal with methadone taper -mood is better and depression seems to be resolving; denies any SI. Still has auditory hallucination and wants Invega to be further titrated. PLAN: CV Q15 min checks increase to Paliperidone 6mg daily for AH/paranoid delusions increase to Zoloft 50mg; titrate to 150mg Adderall ER 20mg BID 8am and 1pm Methadone 20mg; then DC and transition to suboxone. Trazodone for insomnia Clonidine 0.1mg prn for withdrawal symptoms and anxiety ativan prn; not to be continued on discharge cyclobenzaprine/bentyl/imodium/zofran comfort meds I spent minutes with the patient and/or on the patient floor today, greater than?50% of which was spent counseling/coordinating care. Reason for contiued inpatient stay Substantial Risk for: stable for discharge
[2021-04-23 12:35] VITALS: BP 111/73; PULSE 99; RESP 14; TEMP 36.3; O2SAT 100
[2021-04-23] MEDS: Cyclobenzaprine HCl 10 MG TABLET PO (12:57)
[2021-04-23 18:00] VITALS: BP 100/63; PULSE 116; RESP 14; TEMP 36.9; O2SAT 99
[2021-04-23] MEDS: LORazepam 1 MG TABLET PO (18:41)
[2021-04-23] MEDS: traZODone HCL 100 MG TABLET PO (21:34)
[2021-04-24 06:00] VITALS: BP 102/63; PULSE 106; RESP 16; TEMP 36.6; O2SAT 99
[2021-04-24] MEDS: Dextroamphetamine/Amphetamine XR 10 MG CAP.ER.24H 20 MG PO ×2 (08:33→12:56)
[2021-04-24] MEDS: Paliperidone ER 6 MG TAB.ER.24 PO (08:33)
[2021-04-24] MEDS: methADONE HCl 20 MG/2 ML ORAL.CONC PO (08:33)
[2021-04-24] MEDS: Multivitamin TABLET 1 TAB PO (08:33)
[2021-04-24] MEDS: Sertraline HCL 50 MG TABLET PO (08:34)
[2021-04-24] MEDS: Nicotine 21 MG PATCH.TD24 TRANSDERMA (08:39)
--- NOTE | 2021-04-24 17:25 | P.PNPSI_ITS ---
Subjective Subjective Date of Service: 04/24/21 Reason For Visit: Crisis Interim History: pt says he's feeling better. Denies withdrawal and wants to dc methadone in order to make transition to suboxone. Pt says mood is better, no SI; no nightmares. He still here's voices but a little less so. He still feels that people can read his thoughts and that people are talking about him. He want s to increase Paliperidone and zoloft. Mental Status Exam Mental Status Exam Narrative: Pt is alert and oriented; behavior is cooperative, friendly, calm; dressed in casual attire, scruffy shaw? but adequate hygiene; mood is described as good and affect congruent; eye contact appropriate; Speech is normal rate, volume and prosody and not pressured; no psychomotor agitation/retardation present; thought process is organized and goal directed; Thought content is on tx; some paranoid delusions that people are talking about him; otherwise pertinent to relevant topics; denies SI; denies HI;? AH that say disparaging things but less; telegraph others thoughts. ?Patients insight and judgment are impaired but are adequate and improving. Diagnostics Vital Signs (24Hr): Vital Signs - 24 hr 04/23/21 18:00 04/24/21 06:00 Temperature 98.4 F 97.8 F Pulse Rate 116 H 106 H Respiratory Rate 14 16 Blood Pressure 100/63 102/63 Pulse Oximetry 99 99 BMI result Body Mass Index 65.7 Labs Results: 04/18/21 14:59 04/18/21 14:59 Medications Medications Current Medications Acetaminophen (Acetaminophen 325 Mg Tablet) 650 mg PO Q6H PRN PRN Reason: Headache/Pain Mild Scale (1-3) Al Hydroxide/Mg Hydroxide (Magnesium Hydrox/Alum Hydrox 30 Ml Oral.Susp) 30 ml PO Q6H PRN PRN Reason: Heartburn/Nausea Amphetamine/Dextroamphetamine (Dextroamphetamine/Amphetamine Xr 10 Mg Cap.Er.24h) 20 mg PO BID@0830,1330 RISSA Last Admin: 04/24/21 12:56 Dose: 20 mg Documented by: Clonidine HCl (Clonidine Hcl 0.1 Mg Tablet) 0.1 mg PO Q4H PRN; Protocol PRN Reason: anxiety/withdrawal Last Admin: 04/22/21 19:50 Dose: 0.1 mg Documented by: Cyclobenzaprine HCl (Cyclobenzaprine Hcl 10 Mg Tablet) 10 mg PO QID PRN PRN Reason: muscle cramps Last Admin: 04/23/21 12:57 Dose: 10 mg Documented by: Dicyclomine HCl (Dicyclomine Hcl 10 Mg Capsule) 10 mg PO QID PRN PRN Reason: abdomnial cramps Loperamide HCl (Loperamide Hcl 2 Mg Capsule) 4 mg PO Q4H PRN PRN Reason: Loose Stool Lorazepam (Lorazepam 1 Mg Tablet) 1 mg PO TID PRN PRN Reason: anxiety Last Admin: 04/23/21 18:41 Dose: 1 mg Documented by: Magnesium Hydroxide (Milk Of Magnesia 30 Ml Oral.Susp) 30 ml PO DAILY PRN PRN Reason: Constipation Multivitamins/Vitamin C (Multivitamin Tablet) 1 tab PO DAILY [facility] Last Admin: 04/24/21 08:33 Dose: 1 tab Documented by: Nicotine (Nicotine 21 Mg Patch.Td24) 21 mg TRANSDERMA DAILY PRN PRN Reason: smoking cessation Last Admin: 04/24/21 08:39 Dose: 21 mg Documented by: Ondansetron HCl (Ondansetron Odt 4 Mg Tab.Rapdis) 4 mg TRANSLINGU Q6H PRN PRN Reason: nausea/vomiting Paliperidone (Paliperidone Er 6 Mg Tab.Er.24) 6 mg PO DAILY [facility] Last Admin: 04/24/21 08:33 Dose: 6 mg Documented by: Pharmacy Consult (Consult Rx Perform Med Rec) 1 each MISCELLANE ONCE PRN PRN Reason: Consult order Sertraline HCl (Sertraline Hcl 50 Mg Tablet) 50 mg PO DAILY [facility] Last Admin: 04/24/21 08:34 Dose: 50 mg Documented by: Trazodone HCl (Trazodone Hcl 100 Mg Tablet) 100 mg PO BEDTIME [facility] Last Admin: 04/23/21 21:34 Dose: 100 mg Documented by: Allergies Allergies Allergy/AdvReac Type Severity Reaction Status Date / Time tomato [Tomato] Allergy Severe DIFFICULTY Verified 08/24/20 14:58 BREATHING, swelling of face and throat divalproex sodium Allergy Mild SEIZURES Verified 08/24/20 14:58 [From Depakote] olanzapine [From Zyprexa] Allergy Mild NIPPLES Verified 08/24/20 14:58 LEAK risperidone [From Risperdal] Allergy Mild UNKNOWN Verified 08/24/20 14:58 quetiapine [From SEROQUEL] Allergy Unknown HEART Verified 08/24/20 14:58 PALPITATIONS lithium [[place]restone] AdvReac Mild STOMACH Verified 08/24/20 14:58 PAIN aripiprazole [From ABILIFY] AdvReac Unknown DYSTONIA Verified 08/24/20 14:58 Assessment & Plan Assessment & Plan (1) Schizoaffective disorder: Qualifiers: Schizoaffective disorder type: depressive Qualified Code(s): F25.1 - Schizoaffective disorder, depressive type Status: Chronic Code(s): F25.9 - Schizoaffective disorder, unspecified (2) Post traumatic stress disorder (PTSD): Status: Acute Code(s): F43.10 - Post-traumatic stress disorder, unspecified (3) ADHD: Status: Acute Code(s): F90.9 - Attention-deficit hyperactivity disorder, unspecified type (4) Opioid use disorder, severe, dependence: Status: Acute Code(s): F11.20 - Opioid dependence, uncomplicated Assessment and Plan: IMPRESSION: pt is a 40 yo male with hx of schizoaffective disorder, depressed type, ptsd and opiod abuse who presents for worsening depression, ptsd symptoms, AH and delusional thinking in face of being off meds for months and relapse on heroin.? -treat psychosis and depression -treat w/drawal; methadone 30mg ~ suboxone 24mg; taper methadone; once pt in high w/drawal will convert to suboxone. -SI resolved; still has AH; mild w/drawal with methadone taper -mood is better and depression resolved; denies any SI. Still has auditory hallucination, delusions and wants Invega to be further titrated. PLAN: CV Q15 min checks INCrease to Paliperidone 9mg daily for AH/paranoid delusions increase to Zoloft 75mg; titrate to 150mg Adderall ER 20mg BID 8am and 1pm DC Methadone WILL START SUBOXONE ONCE PATIENT FEELING WITHDRAWAL SYMPTOMS Trazodone for insomnia Clonidine 0.1mg prn for withdrawal symptoms and anxiety ativan prn; not to be continued on discharge cyclobenzaprine/bentyl/imodium/zofran comfort meds I spent minutes with the patient and/or on the patient floor today, greater than?50% of which was spent counseling/coordinating care. Reason for contiued inpatient stay Substantial Risk for: rapid decompensation
[2021-04-24 17:37] VITALS: BP 119/72; PULSE 107
[2021-04-24] MEDS: LORazepam 1 MG TABLET PO (18:05)
[2021-04-24 20:10] VITALS: BP 110/76; PULSE 110; RESP 17; TEMP 36.9; O2SAT 99
[2021-04-24] MEDS: Acetaminophen 325 MG TABLET 650 MG PO (22:26)
[2021-04-24] MEDS: traZODone HCL 100 MG TABLET PO (22:27)
[2021-04-25 06:00] VITALS: BP 116/74; PULSE 83; RESP 16; TEMP 36.4; O2SAT 100
[2021-04-25] MEDS: Nicotine 21 MG PATCH.TD24 TRANSDERMA (09:10)
[2021-04-25] MEDS: Multivitamin TABLET 1 TAB PO (09:10)
[2021-04-25] MEDS: Sertraline HCL 25 MG TABLET 75 MG PO (09:10)
[2021-04-25] MEDS: Dextroamphetamine/Amphetamine XR 10 MG CAP.ER.24H 20 MG PO ×2 (09:10→12:45)
[2021-04-25] MEDS: Paliperidone ER 9 MG TAB.ER.24 PO (09:11)
[2021-04-25] MEDS: methADONE HCl 20 MG/2 ML ORAL.CONC 10 MG PO (12:45)
[2021-04-25] MEDS: LORazepam 1 MG TABLET PO (16:50)
--- NOTE | 2021-04-25 17:03 | HO.PSYCHPN ---
Subjective Subjective Date of Service: 04/25/21 Reason For Visit: Crisis Interim History: Patient still feels anxious about switching over to Suboxone so agreed to 10 mg of methadone today. He will not take any methadone tomorrow and will see if he is ready for transition to Suboxone. Patient continues to report auditory hallucinations which are still bothersome though he agrees they are less than before. Denies any medication side effects. Patient denies any SI and says mood is overall improved though he remains anxious. Mental Status Exam Mental Status Exam Narrative: ?Pt is alert and oriented; behavior is cooperative, friendly, calm; dressed in casual attire, scruffy shaw? but adequate hygiene; mood is described as anxious and affect congruent; eye contact appropriate; Speech is normal rate, volume and prosody and not pressured; no psychomotor agitation/retardation present; thought process is organized and goal directed; Thought content is on tx; some paranoid delusions that people are talking about him; otherwise pertinent to relevant topics; denies SI; denies HI;? AH that say disparaging things but less; telegraph others thoughts. ?Patients insight and judgment are impaired but are adequate and improving. Diagnostics Vital Signs (24Hr): Vital Signs - 24 hr 04/24/21 17:37 04/24/21 20:10 04/25/21 06:00 Temperature 98.5 F 97.6 F Pulse Rate 107 H 110 H 83 Respiratory Rate 17 16 Blood Pressure 119/72 110/76 116/74 Pulse Oximetry 99 100 BMI result Body Mass Index 65.7 Labs Results: 04/18/21 14:59 04/18/21 14:59 Medications Medications Current Medications Acetaminophen (Acetaminophen 325 Mg Tablet) 650 mg PO Q6H PRN PRN Reason: Headache/Pain Mild Scale (1-3) Last Admin: 04/24/21 22:26 Dose: 650 mg Documented by: Al Hydroxide/Mg Hydroxide (Magnesium Hydrox/Alum Hydrox 30 Ml Oral.Susp) 30 ml PO Q6H PRN PRN Reason: Heartburn/Nausea Amphetamine/Dextroamphetamine (Dextroamphetamine/Amphetamine Xr 10 Mg Cap.Er.24h) 20 mg PO BID@0830,1330 RISSA Last Admin: 04/25/21 12:45 Dose: 20 mg Documented by: Clonidine HCl (Clonidine Hcl 0.1 Mg Tablet) 0.1 mg PO Q4H PRN; Protocol PRN Reason: anxiety/withdrawal Last Admin: 04/22/21 19:50 Dose: 0.1 mg Documented by: Cyclobenzaprine HCl (Cyclobenzaprine Hcl 10 Mg Tablet) 10 mg PO QID PRN PRN Reason: muscle cramps Last Admin: 04/23/21 12:57 Dose: 10 mg Documented by: Dicyclomine HCl (Dicyclomine Hcl 10 Mg Capsule) 10 mg PO QID PRN PRN Reason: abdomnial cramps Loperamide HCl (Loperamide Hcl 2 Mg Capsule) 4 mg PO Q4H PRN PRN Reason: Loose Stool Lorazepam (Lorazepam 1 Mg Tablet) 1 mg PO TID PRN PRN Reason: anxiety Last Admin: 04/25/21 16:50 Dose: 1 mg Documented by: Magnesium Hydroxide (Milk Of Magnesia 30 Ml Oral.Susp) 30 ml PO DAILY PRN PRN Reason: Constipation Multivitamins/Vitamin C (Multivitamin Tablet) 1 tab PO DAILY [facility] Last Admin: 04/25/21 09:10 Dose: 1 tab Documented by: Nicotine (Nicotine 21 Mg Patch.Td24) 21 mg TRANSDERMA DAILY PRN PRN Reason: smoking cessation Last Admin: 04/25/21 09:10 Dose: 21 mg Documented by: Ondansetron HCl (Ondansetron Odt 4 Mg Tab.Rapdis) 4 mg TRANSLINGU Q6H PRN PRN Reason: nausea/vomiting Paliperidone (Paliperidone Er 9 Mg Tab.Er.24) 9 mg PO DAILY RISSA Last Admin: 04/25/21 09:11 Dose: 9 mg Documented by: Pharmacy Consult (Consult Rx Perform Med Rec) 1 each MISCELLANE ONCE PRN PRN Reason: Consult order Prazosin HCl (Prazosin Hcl 1 Mg Capsule) 1 mg PO BEDTIME RISSA; Protocol Sertraline HCl (Sertraline Hcl 25 Mg Tablet) 75 mg PO DAILY [facility] Last Admin: 04/25/21 09:10 Dose: 75 mg Documented by: Trazodone HCl (Trazodone Hcl 100 Mg Tablet) 100 mg PO BEDTIME RISSA Last Admin: 04/24/21 22:27 Dose: 100 mg Documented by: Allergies Allergies Allergy/AdvReac Type Severity Reaction Status Date / Time tomato [Tomato] Allergy Severe DIFFICULTY Verified 08/24/20 14:58 BREATHING, swelling of face and throat divalproex sodium Allergy Mild SEIZURES Verified 08/24/20 14:58 [From Depakote] olanzapine [From Zyprexa] Allergy Mild NIPPLES Verified 08/24/20 14:58 LEAK risperidone [From Risperdal] Allergy Mild UNKNOWN Verified 08/24/20 14:58 quetiapine [From SEROQUEL] Allergy Unknown HEART Verified 08/24/20 14:58 PALPITATIONS lithium [[place]] AdvReac Mild STOMACH Verified 08/24/20 14:58 PAIN aripiprazole [From ABILIFY] AdvReac Unknown DYSTONIA Verified 08/24/20 14:58 Assessment & Plan Assessment & Plan (1) Schizoaffective disorder: Qualifiers: Schizoaffective disorder type: depressive Qualified Code(s): F25.1 - Schizoaffective disorder, depressive type Status: Chronic Code(s): F25.9 - Schizoaffective disorder, unspecified (2) Post traumatic stress disorder (PTSD): Status: Acute Code(s): F43.10 - Post-traumatic stress disorder, unspecified (3) ADHD: Status: Acute Code(s): F90.9 - Attention-deficit hyperactivity disorder, unspecified type (4) Opioid use disorder, severe, dependence: Status: Acute Code(s): F11.20 - Opioid dependence, uncomplicated Assessment and Plan: IMPRESSION: pt is a 40 yo male with hx of schizoaffective disorder, depressed type, ptsd and opiod abuse who presents for worsening depression, ptsd symptoms, AH and delusional thinking in face of being off meds for months and relapse on heroin.? -treat psychosis and depression -treat w/drawal; methadone 30mg ~ suboxone 24mg; taper methadone; once pt in high w/drawal will convert to suboxone. -SI resolved; still has AH; mild w/drawal with methadone taper -mood is better and depression resolved; denies any SI. Still has auditory hallucination, delusions and wants Invega to be further titrated. -mood remains better however still anxious. Denies any SI. Still has auditory hallucinations though there are less. Still wants to start Suboxone PLAN: CV Q15 min checks Methadone 10mg one time dose on 04/25/21; will consider starting suboxone tomorrow; WILL START SUBOXONE ONCE PATIENT FEELING WITHDRAWAL SYMPTOMS Paliperidone 9mg daily for AH/paranoid delusions increase to Zoloft 75mg; titrate to 150mg Adderall ER 20mg BID 8am and 1pm DC Methadone Trazodone for insomnia Clonidine 0.1mg prn for withdrawal symptoms and anxiety ativan prn; not to be continued on discharge cyclobenzaprine/bentyl/imodium/zofran comfort meds I spent minutes with the patient and/or on the patient floor today, greater than?50% of which was spent counseling/coordinating care. Reason for contiued inpatient stay Substantial Risk for: rapid decompensation
[2021-04-25 17:46] VITALS: BP 122/84; PULSE 130
[2021-04-25 21:05] VITALS: BP 97/62; PULSE 87; RESP 19; TEMP 36.8; O2SAT 98
[2021-04-25] MEDS: Prazosin HCL 1 MG CAPSULE PO (21:10)
[2021-04-25] MEDS: traZODone HCL 100 MG TABLET PO (21:15)
[2021-04-26 06:00] VITALS: BP 108/59; PULSE 82; RESP 14; TEMP 36.5; O2SAT 96
[2021-04-26] MEDS: Sertraline HCL 25 MG TABLET 75 MG PO (08:30)
[2021-04-26] MEDS: Multivitamin TABLET 1 TAB PO (08:30)
[2021-04-26] MEDS: Dextroamphetamine/Amphetamine XR 10 MG CAP.ER.24H 20 MG PO ×2 (08:30→13:21)
[2021-04-26] MEDS: Paliperidone ER 9 MG TAB.ER.24 PO (08:30)
--- NOTE | 2021-04-26 10:42 | P.PNPSI_ITS ---
Subjective Subjective Date of Service: 04/26/21 Reason For Visit: Crisis Interim History: Patient reports that he has very little withdrawal symptoms. He agrees to start transition to Suboxone tomorrow. He continues to have auditory hallucinations that are bothersome but they remain less so than on admission. Patient said he has is overall sleeping better and does not have any nightmares which he is grateful for. Patient otherwise has no complaints or requests. Mental Status Exam Mental Status Exam Narrative: ?Pt is alert and oriented; behavior is cooperative, friendly, calm; dressed in casual attire, scruffy shaw? but adequate hygiene; mood is described as ok and affect congruent; eye contact appropriate; Speech is normal rate, volume and prosody and not pressured; no psychomotor agitation/retardation present; thought process is organized and goal directed; Thought content is on tx; some paranoid delusions that people are talking about him; otherwise pertinent to relevant topics; denies SI; denies HI;? AH that say disparaging things but less; telegraph others thoughts. ?Patients insight and judgment are impaired but are adequate and improving. Diagnostics Vital Signs (24Hr): Vital Signs - 24 hr 04/25/21 17:46 04/25/21 21:05 04/26/21 06:00 Temperature 98.3 F 97.7 F Pulse Rate 130 H 87 82 Respiratory Rate 19 14 Blood Pressure 122/84 97/62 108/59 L Pulse Oximetry 98 96 BMI result Body Mass Index 65.7 Labs Results: 04/18/21 14:59 04/18/21 14:59 Medications Medications Current Medications Acetaminophen (Acetaminophen 325 Mg Tablet) 650 mg PO Q6H PRN PRN Reason: Headache/Pain Mild Scale (1-3) Last Admin: 04/24/21 22:26 Dose: 650 mg Documented by: Al Hydroxide/Mg Hydroxide (Magnesium Hydrox/Alum Hydrox 30 Ml Oral.Susp) 30 ml PO Q6H PRN PRN Reason: Heartburn/Nausea Amphetamine/Dextroamphetamine (Dextroamphetamine/Amphetamine Xr 10 Mg Cap.Er.24h) 20 mg PO BID@0830,1330 RISSA Last Admin: 04/26/21 08:30 Dose: 20 mg Documented by: Clonidine HCl (Clonidine Hcl 0.1 Mg Tablet) 0.1 mg PO Q4H PRN; Protocol PRN Reason: anxiety/withdrawal Last Admin: 04/22/21 19:50 Dose: 0.1 mg Documented by: Cyclobenzaprine HCl (Cyclobenzaprine Hcl 10 Mg Tablet) 10 mg PO QID PRN PRN Reason: muscle cramps Last Admin: 04/23/21 12:57 Dose: 10 mg Documented by: Dicyclomine HCl (Dicyclomine Hcl 10 Mg Capsule) 10 mg PO QID PRN PRN Reason: abdomnial cramps Loperamide HCl (Loperamide Hcl 2 Mg Capsule) 4 mg PO Q4H PRN PRN Reason: Loose Stool Lorazepam (Lorazepam 1 Mg Tablet) 1 mg PO TID PRN PRN Reason: anxiety Last Admin: 04/25/21 16:50 Dose: 1 mg Documented by: Magnesium Hydroxide (Milk Of Magnesia 30 Ml Oral.Susp) 30 ml PO DAILY PRN PRN Reason: Constipation Multivitamins/Vitamin C (Multivitamin Tablet) 1 tab PO DAILY [facility] Last Admin: 04/26/21 08:30 Dose: 1 tab Documented by: Nicotine (Nicotine 21 Mg Patch.Td24) 21 mg TRANSDERMA DAILY PRN PRN Reason: smoking cessation Last Admin: 04/25/21 09:10 Dose: 21 mg Documented by: Ondansetron HCl (Ondansetron Odt 4 Mg Tab.Rapdis) 4 mg TRANSLINGU Q6H PRN PRN Reason: nausea/vomiting Paliperidone (Paliperidone Er 9 Mg Tab.Er.24) 9 mg PO DAILY [facility] Last Admin: 04/26/21 08:30 Dose: 9 mg Documented by: Pharmacy Consult (Consult Rx Perform Med Rec) 1 each MISCELLANE ONCE PRN PRN Reason: Consult order Prazosin HCl (Prazosin Hcl 1 Mg Capsule) 1 mg PO BEDTIME RISSA; Protocol Last Admin: 04/25/21 21:10 Dose: 1 mg Documented by: Sertraline HCl (Sertraline Hcl 25 Mg Tablet) 75 mg PO DAILY [facility] Last Admin: 04/26/21 08:30 Dose: 75 mg Documented by: Trazodone HCl (Trazodone Hcl 100 Mg Tablet) 100 mg PO BEDTIME RISSA Last Admin: 04/25/21 21:15 Dose: 100 mg Documented by: Allergies Allergies Allergy/AdvReac Type Severity Reaction Status Date / Time tomato [Tomato] Allergy Severe DIFFICULTY Verified 08/24/20 14:58 BREATHING, swelling of face and throat divalproex sodium Allergy Mild SEIZURES Verified 08/24/20 14:58 [From Depakote] olanzapine [From Zyprexa] Allergy Mild NIPPLES Verified 08/24/20 14:58 LEAK risperidone [From Risperdal] Allergy Mild UNKNOWN Verified 08/24/20 14:58 quetiapine [From SEROQUEL] Allergy Unknown HEART Verified 08/24/20 14:58 PALPITATIONS lithium [[place]] AdvReac Mild STOMACH Verified 08/24/20 14:58 PAIN aripiprazole [From ABILIFY] AdvReac Unknown DYSTONIA Verified 08/24/20 14:58 Assessment & Plan Assessment & Plan (1) Schizoaffective disorder: Qualifiers: Schizoaffective disorder type: depressive Qualified Code(s): F25.1 - Schizoaffective disorder, depressive type Status: Chronic Code(s): F25.9 - Schizoaffective disorder, unspecified (2) Post traumatic stress disorder (PTSD): Status: Acute Code(s): F43.10 - Post-traumatic stress disorder, unspecified (3) ADHD: Status: Acute Code(s): F90.9 - Attention-deficit hyperactivity disorder, unspecified type (4) Opioid use disorder, severe, dependence: Status: Acute Code(s): F11.20 - Opioid dependence, uncomplicated Assessment and Plan: IMPRESSION: pt is a 40 yo male with hx of schizoaffective disorder, depressed type, ptsd and opiod abuse who presents for worsening depression, ptsd symptoms, AH and delusional thinking in face of being off meds for months and relapse on heroin.? -treat psychosis and depression -treat w/drawal; methadone 30mg ~ suboxone 24mg; taper methadone; once pt in high w/drawal will convert to suboxone. -SI resolved; still has AH; mild w/drawal with methadone taper -mood is better and depression resolved; denies any SI. Still has auditory hallucination, delusions and wants Invega to be further titrated. -mood remains better however still anxious. Denies any SI. Still has auditory hallucinations though there are less. Still wants to start Suboxone 04/26 mood is better no SI; still anxious however no nightmares and sleeping better. Auditory hallucinations remain but are less. Likely start Suboxone 1/18 PLAN: CV Q15 min checks Methadone 10mg one time dose on 04/25/21; will consider starting suboxone tomorrow; WILL START SUBOXONE ONCE PATIENT FEELING WITHDRAWAL SYMPTOMS Paliperidone 9mg daily for AH/paranoid delusions increase to Zoloft 100mg; titrate to 150mg Adderall ER 20mg BID 8am and 1pm DC Methadone Trazodone for insomnia Clonidine 0.1mg prn for withdrawal symptoms and anxiety ativan prn; not to be continued on discharge cyclobenzaprine/bentyl/imodium/zofran comfort meds I spent minutes with the patient and/or on the patient floor today, gr eater than?50% of which was spent counseling/coordinating care. Reason for contiued inpatient stay Substantial Risk for: rapid decompensation
[2021-04-26] MEDS: Nicotine 21 MG PATCH.TD24 TRANSDERMA (13:21)
[2021-04-26] MEDS: LORazepam 1 MG TABLET PO ×2 (16:59→23:41)
[2021-04-26 18:45] VITALS: BP 120/69; PULSE 128; TEMP 36.9; O2SAT 98
[2021-04-26 21:02] VITALS: BP 127/71; PULSE 107; RESP 17
[2021-04-26] MEDS: Prazosin HCL 1 MG CAPSULE PO (21:48)
[2021-04-26] MEDS: traZODone HCL 100 MG TABLET PO (21:49)
[2021-04-27 06:00] VITALS: BP 113/56; PULSE 86; RESP 18; TEMP 36.7; O2SAT 99
[2021-04-27] MEDS: Dextroamphetamine/Amphetamine XR 10 MG CAP.ER.24H 20 MG PO ×2 (08:38→13:36)
[2021-04-27] MEDS: Multivitamin TABLET 1 TAB PO (08:38)
[2021-04-27] MEDS: Sertraline HCL 100 MG TABLET PO (08:38)
[2021-04-27] MEDS: Paliperidone ER 9 MG TAB.ER.24 PO (08:38)
--- NOTE | 2021-04-27 09:04 | HO.PSYCHPN ---
Subjective Subjective Date of Service: 04/27/21 Reason For Visit: Crisis Interim History: pt feels ready to get on Suboxone; discussed process. Anxiety and depression lower and not bothersome, no SI. Pt continues to have AH and paranoid thoughts about peers, hearing his thoughts and/or telegraphing theirs; however they remain less than on admission and currently tolerable. Mental Status Exam Mental Status Exam Narrative: Pt is alert and oriented; behavior is cooperative, friendly, calm; dressed in casual attire, scruffy shaw? but adequate hygiene; mood is described as ok and affect congruent; eye contact appropriate; Speech is normal rate, volume and prosody and not pressured; no psychomotor agitation/retardation present; thought process is organized and goal directed; Thought content is on tx; some paranoid delusions that people are talking about him and telegraphing of their thoughts; otherwise pertinent to relevant topics; denies SI; denies HI;? AH that say disparaging things but less; ?Patients insight and judgment are impaired but are adequate and improving. Diagnostics Vital Signs (24Hr): Vital Signs - 24 hr 04/26/21 18:45 04/26/21 21:02 04/27/21 06:00 Temperature 98.4 F 98.1 F Pulse Rate 128 H 107 H 86 Respiratory Rate 17 18 Blood Pressure 120/69 127/71 113/56 L Pulse Oximetry 98 99 BMI result Body Mass Index 65.7 Labs Results: 04/18/21 14:59 04/18/21 14:59 Medications Medications Current Medications Acetaminophen (Acetaminophen 325 Mg Tablet) 650 mg PO Q6H PRN PRN Reason: Headache/Pain Mild Scale (1-3) Last Admin: 04/24/21 22:26 Dose: 650 mg Documented by: Al Hydroxide/Mg Hydroxide (Magnesium Hydrox/Alum Hydrox 30 Ml Oral.Susp) 30 ml PO Q6H PRN PRN Reason: Heartburn/Nausea Amphetamine/Dextroamphetamine (Dextroamphetamine/Amphetamine Xr 10 Mg Cap.Er.24h) 20 mg PO BID@0830,1330 RISSA Last Admin: 04/27/21 08:38 Dose: 20 mg Documented by: Clonidine HCl (Clonidine Hcl 0.1 Mg Tablet) 0.1 mg PO Q4H PRN; Protocol PRN Reason: anxiety/withdrawal Last Admin: 04/22/21 19:50 Dose: 0.1 mg Documented by: Cyclobenzaprine HCl (Cyclobenzaprine Hcl 10 Mg Tablet) 10 mg PO QID PRN PRN Reason: muscle cramps Last Admin: 04/23/21 12:57 Dose: 10 mg Documented by: Dicyclomine HCl (Dicyclomine Hcl 10 Mg Capsule) 10 mg PO QID PRN PRN Reason: abdomnial cramps Loperamide HCl (Loperamide Hcl 2 Mg Capsule) 4 mg PO Q4H PRN PRN Reason: Loose Stool Lorazepam (Lorazepam 1 Mg Tablet) 1 mg PO TID PRN PRN Reason: anxiety Last Admin: 04/26/21 23:41 Dose: 1 mg Documented by: Magnesium Hydroxide (Milk Of Magnesia 30 Ml Oral.Susp) 30 ml PO DAILY PRN PRN Reason: Constipation Multivitamins/Vitamin C (Multivitamin Tablet) 1 tab PO DAILY [facility] Last Admin: 04/27/21 08:38 Dose: 1 tab Documented by: Nicotine (Nicotine 21 Mg Patch.Td24) 21 mg TRANSDERMA DAILY PRN PRN Reason: smoking cessation Last Admin: 04/26/21 13:21 Dose: 21 mg Documented by: Ondansetron HCl (Ondansetron Odt 4 Mg Tab.Rapdis) 4 mg TRANSLINGU Q6H PRN PRN Reason: nausea/vomiting Paliperidone (Paliperidone Er 9 Mg Tab.Er.24) 9 mg PO DAILY [facility] Last Admin: 04/27/21 08:38 Dose: 9 mg Documented by: Pharmacy Consult (Consult Rx Perform Med Rec) 1 each MISCELLANE ONCE PRN PRN Reason: Consult order Prazosin HCl (Prazosin Hcl 1 Mg Capsule) 1 mg PO BEDTIME [facility]; Protocol Last Admin: 04/26/21 21:48 Dose: 1 mg Documented by: Sertraline HCl (Sertraline Hcl 100 Mg Tablet) 100 mg PO DAILY [facility] Last Admin: 04/27/21 08:38 Dose: 100 mg Documented by: Trazodone HCl (Trazodone Hcl 100 Mg Tablet) 100 mg PO BEDTIME [facility] Last Admin: 04/26/21 21:49 Dose: 100 mg Documented by: Allergies Allergies Allergy/AdvReac Type Severity Reaction Status Date / Time tomato [Tomato] Allergy Severe DIFFICULTY Verified 08/24/20 14:58 BREATHING, swelling of face and throat divalproex sodium Allergy Mild SEIZURES Verified 08/24/20 14:58 [From Depakote] olanzapine [From Zyprexa] Allergy Mild NIPPLES Verified 08/24/20 14:58 LEAK risperidone [From Risperdal] Allergy Mild UNKNOWN Verified 08/24/20 14:58 quetiapine [From SEROQUEL] Allergy Unknown HEART Verified 08/24/20 14:58 PALPITATIONS lithium [[place]] AdvReac Mild STOMACH Verified 08/24/20 14:58 PAIN aripiprazole [From ABILIFY] AdvReac Unknown DYSTONIA Verified 08/24/20 14:58 Assessment & Plan Assessment & Plan (1) Schizoaffective disorder: Qualifiers: Schizoaffective disorder type: depressive Qualified Code(s): F25.1 - Schizoaffective disorder, depressive type Status: Chronic Code(s): F25.9 - Schizoaffective disorder, unspecified (2) Post traumatic stress disorder (PTSD): Status: Acute Code(s): F43.10 - Post-traumatic stress disorder, unspecified (3) ADHD: Status: Acute Code(s): F90.9 - Attention-deficit hyperactivity disorder, unspecified type (4) Opioid use disorder, severe, dependence: Status: Acute Code(s): F11.20 - Opioid dependence, uncomplicated Assessment and Plan: IMPRESSION: pt is a 40 yo male with hx of schizoaffective disorder, depressed type, ptsd and opiod abuse who presents for worsening depression, ptsd symptoms, AH and delusional thinking in face of being off meds for months and relapse on heroin.? -treat psychosis and depression -treat w/drawal; methadone 30mg ~ suboxone 24mg; taper methadone; once pt in high w/drawal will convert to suboxone. -SI resolved; still has AH; mild w/drawal with methadone taper -mood is better and depression resolved; denies any SI. Still has auditory hallucination, delusions and wants Invega to be further titrated. -mood remains better however still anxious. Denies any SI. Still has auditory hallucinations though there are less. Still wants to start Suboxone 04/26 mood is better no SI; still anxious however no nightmares and sleeping better. Auditory hallucinations remain but are less. 04/27 start Suboxone; no SI; still AH and paranoid ideations, but remains less than on admission. PLAN: CV Q15 min checks start suboxone 8/2 mg x2 to titrate to maintenance Paliperidone 9mg daily for AH/paranoid delusions increase to Zoloft 100mg; titrate to 150mg or higher Adderall ER 20mg BID 8am and 1pm DC Methadone Trazodone for insomnia Clonidine 0.1mg prn for withdrawal symptoms and anxiety ativan prn; not to be continued on discharge cyclobenzaprine/bentyl/imodium/zofran comfort meds I spent minutes with the patient and/or on the patient floor today, greater than?50% of which was spent counseling/coordinating care. Reason for contiued inpatient stay Substantial Risk for: rapid decompensation
[2021-04-27] MEDS: Buprenorphine/Naloxone 8/2 mg FILM 1 FILM SUBLINGUAL ×2 (11:31→13:36)
[2021-04-27] MEDS: Acetaminophen 325 MG TABLET 650 MG PO (17:16)
[2021-04-27] MEDS: Nicotine 21 MG PATCH.TD24 TRANSDERMA (17:18)
[2021-04-27] MEDS: LORazepam 1 MG TABLET PO (17:21)
[2021-04-27 21:10] VITALS: BP 117/66; PULSE 94; TEMP 37.1
[2021-04-27] MEDS: Prazosin HCL 1 MG CAPSULE PO (21:11)
[2021-04-27] MEDS: traZODone HCL 100 MG TABLET PO (21:11)
[2021-04-28 06:00] VITALS: BP 124/72; PULSE 100; RESP 16; TEMP 36.4; O2SAT 99
[2021-04-28] MEDS: Dextroamphetamine/Amphetamine XR 10 MG CAP.ER.24H 20 MG PO ×2 (07:58→12:31)
[2021-04-28] MEDS: Multivitamin TABLET 1 TAB PO (07:58)
[2021-04-28] MEDS: Sertraline HCL 100 MG TABLET PO (07:58)
[2021-04-28] MEDS: Buprenorphine/Naloxone 8/2 mg FILM 2 FILM SUBLINGUAL (07:58)
[2021-04-28] MEDS: Paliperidone ER 9 MG TAB.ER.24 PO (07:58)
--- NOTE | 2021-04-28 10:55 | P.PNPSI_ITS ---
Subjective Subjective Date of Service: 04/28/21 Reason For Visit: Crisis Interim History: Patient reports that he is feeling good on Suboxone. He also says depression and anxiety or down in nightmares remain resolved. Denies any SI. Patient still has auditory hallucinations but instead of individual voices they are not like a mumbling bunch of people and nonspecific. He says this is actually more aggravating but it is intermittent and tolerable. Patient said that he has been on many medications and nothing is ever fully resolved auditory hallucinations so he has learned to deal with it. That said, patient reports that he has not been feeling paranoid about other people on the unit or that people can hear his thoughts or he theirs. Patient would like to proceed with discharge tomorrow. He asks for Ativan once a day p.r.n.; selling underwriter reviews history and it is evident that patient has consistently taking less Ativan then was prescribed for him on the unit. Patient says he has never abused Ativan before. He also says he would like Adderall saying he has been on it since he has been a kid and that it is an essential component to him staying stable, as it helps him focus and helps him keep his thoughts in order which in turn significantly reduces anxiety. Mental Status Exam Mental Status Exam Narrative: ?Pt is alert and oriented; behavior is cooperative, friendly, calm; dressed in casual attire, scruffy shaw? but adequate hygiene; mood is described as good and affect congruent; eye contact appropriate; Speech is normal rate, volume and prosody and not pressured; no psychomotor agitation/retardation present; thought process is organized and goal directed; Thought content is on tx and discharge; no paranoid delusions; otherwise pertinent to relevant topics; denies SI; denies HI;? AH remain but are vague mumbles and tolerable. Patients insight and judgment are fair and adequate. Diagnostics Vital Signs (24Hr): Vital Signs - 24 hr 04/27/21 21:10 04/28/21 06:00 Temperature 98.8 F 97.6 F Pulse Rate 94 100 Respiratory Rate 16 Blood Pressure 117/66 124/72 Pulse Oximetry 99 BMI result Body Mass Index 65.7 Labs Results: 04/18/21 14:59 04/18/21 14:59 Medications Medications Current Medications Acetaminophen (Acetaminophen 325 Mg Tablet) 650 mg PO Q6H PRN PRN Reason: Headache/Pain Mild Scale (1-3) Last Admin: 04/27/21 17:16 Dose: 650 mg Documented by: Al Hydroxide/Mg Hydroxide (Magnesium Hydrox/Alum Hydrox 30 Ml Oral.Susp) 30 ml PO Q6H PRN PRN Reason: Heartburn/Nausea Amphetamine/Dextroamphetamine (Dextroamphetamine/Amphetamine Xr 10 Mg Cap.Er.24h) 20 mg PO BID@0830,1330 [facility] Last Admin: 04/28/21 07:58 Dose: 20 mg Documented by: Buprenorphine/Naloxone (Buprenorphine/Naloxone 8/2 Mg Film) 2 film SUBLINGUAL DAILY [facility] Last Admin: 04/28/21 07:58 Dose: 2 film Documented by: Clonidine HCl (Clonidine Hcl 0.1 Mg Tablet) 0.1 mg PO Q4H PRN; Protocol PRN Reason: anxiety/withdrawal Last Admin: 04/22/21 19:50 Dose: 0.1 mg Documented by: Cyclobenzaprine HCl (Cyclobenzaprine Hcl 10 Mg Tablet) 10 mg PO QID PRN PRN Reason: muscle cramps Last Admin: 04/23/21 12:57 Dose: 10 mg Documented by: Dicyclomine HCl (Dicyclomine Hcl 10 Mg Capsule) 10 mg PO QID PRN PRN Reason: abdomnial cramps Loperamide HCl (Loperamide Hcl 2 Mg Capsule) 4 mg PO Q4H PRN PRN Reason: Loose Stool Lorazepam (Lorazepam 1 Mg Tablet) 1 mg PO TID PRN PRN Reason: anxiety Last Admin: 04/27/21 17:21 Dose: 1 mg Documented by: Magnesium Hydroxide (Milk Of Magnesia 30 Ml Oral.Susp) 30 ml PO DAILY PRN PRN Reason: Constipation Multivitamins/Vitamin C (Multivitamin Tablet) 1 tab PO DAILY [facility] Last Admin: 04/28/21 07:58 Dose: 1 tab Documented by: Naloxone HCl (Naloxone Hcl Nasal Take Home 4 Mg [place]) 4 mg NOSTRILALT ONCE ONE Stop: 04/29/21 10:53 Nicotine (Nicotine 21 Mg Patch.Td24) 21 mg TRANSDERMA DAILY PRN PRN Reason: smoking cessation Last Admin: 04/27/21 17:18 Dose: 21 mg Documented by: Ondansetron HCl (Ondansetron Odt 4 Mg Tab.Rapdis) 4 mg TRANSLINGU Q6H PRN PRN Reason: nausea/vomiting Paliperidone (Paliperidone Er 9 Mg Tab.Er.24) 9 mg PO DAILY [facility] Last Admin: 04/28/21 07:58 Dose: 9 mg Documented by: Pharmacy Consult (Consult Rx Perform Med Rec) 1 each MISCELLANE ONCE PRN PRN Reason: Consult order Prazosin HCl (Prazosin Hcl 1 Mg Capsule) 1 mg PO BEDTIME RISSA; Protocol Last Admin: 04/27/21 21:11 Dose: 1 mg Documented by: Sertraline HCl (Sertraline Hcl 50 Mg Tablet) 150 mg PO DAILY RISSA Trazodone HCl (Trazodone Hcl 100 Mg Tablet) 100 mg PO BEDTIME RISSA Last Admin: 04/27/21 21:11 Dose: 100 mg Documented by: Allergies Allergies Allergy/AdvReac Type Severity Reaction Status Date / Time tomato [Tomato] Allergy Severe DIFFICULTY Verified 08/24/20 14:58 BREATHING, swelling of face and throat divalproex sodium Allergy Mild SEIZURES Verified 08/24/20 14:58 [From Depakote] olanzapine [From Zyprexa] Allergy Mild NIPPLES Verified 08/24/20 14:58 LEAK risperidone [From Risperdal] Allergy Mild UNKNOWN Verified 08/24/20 14:58 quetiapine [From SEROQUEL] Allergy Unknown HEART Verified 08/24/20 14:58 PALPITATIONS lithium [[place]] AdvReac Mild STOMACH Verified 08/24/20 14:58 PAIN aripiprazole [From ABILIFY] AdvReac Unknown DYSTONIA Verified 08/24/20 14:58 Assessment & Plan Assessment & Plan (1) Schizoaffective disorder: Qualifiers: Schizoaffective disorder type: depressive Qualified Code(s): F25.1 - Schizoaffective disorder, depressive type Status: Chronic Code(s): F25.9 - Schizoaffective disorder, unspecified (2) Post traumatic stress disorder (PTSD): Status: Acute Code(s): F43.10 - Post-traumatic stress disorder, unspecified (3) ADHD: Status: Acute Code(s): F90.9 - Attention-deficit hyperactivity disorder, unspecified type (4) Opioid use disorder, severe, dependence: Status: Acute Code(s): F11.20 - Opioid dependence, uncomplicated Assessment and Plan: IMPRESSION: pt is a 40 yo male with hx of schizoaffective disorder, depressed type, ptsd and opiod abuse who presents for worsening depression, ptsd symptoms, AH and delusional thinking in face of being off meds for months and relapse on heroin.? -treat psychosis and depression -treat w/drawal; methadone 30mg ~ suboxone 24mg; taper methadone; once pt in high w/drawal will convert to suboxone. -SI resolved; still has AH; mild w/drawal with methadone taper -mood is better and depression resolved; denies any SI. Still has auditory hallucination, delusions and wants Invega to be further titrated. -mood remains better however still anxious. Denies any SI. Still has auditory hallucinations though there are less. Still wants to start Suboxone 04/26 mood is better no SI; still anxious however no nightmares and sleeping better. Auditory hallucinations remain but are less. 04/27 start Suboxone; no SI; still AH and paranoid ideations, but remains less than on admission. -patient reports that depression has resolved and no SI; anxiety is much improved, he sleeping well and nightmares resolved. Still has auditory hallucinations but he says they are tolerable and that despite all medication trials nothing is ever fully resolved them. Conversely he says that paranoid thoughts about those around him have resolved. Patient is looking for to discharge and discussed medications. Patient is not in imminent risk of harm to himself or others and his request for discharge honored. PLAN: CV Q15 min checks suboxone 16/4mg daily Paliperidone 9mg daily for AH/paranoid delusions increase to Zoloft 100mg; titrate to 150mg or higher Adderall ER 20mg BID 8am and 1pm DC Methadone Trazodone for insomnia Clonidine 0.1mg prn for withdrawal symptoms and anxiety ativan prn; not to be continued on discharge cyclobenzaprine/bentyl/imodium/zofran comfort meds I spent minutes with the patient and/or on the patient floor today, greater than?50% of which was spent counseling/coordinating care. Reason for contiued inpatient stay Substantial Risk for: stable for discharge
[2021-04-28] MEDS: Sertraline HCL 25 MG TABLET PO (11:10)
[2021-04-28] MEDS: LORazepam 1 MG TABLET PO (16:45)
[2021-04-28 18:00] VITALS: BP 118/76; PULSE 98
[2021-04-28] MEDS: traZODone HCL 100 MG TABLET PO (21:28)
[2021-04-28] MEDS: Prazosin HCL 1 MG CAPSULE PO (21:28)
[2021-04-29] MEDS: Buprenorphine/Naloxone 8/2 mg FILM 2 FILM SUBLINGUAL (08:36)
[2021-04-29] MEDS: Multivitamin TABLET 1 TAB PO (08:36)
[2021-04-29] MEDS: Dextroamphetamine/Amphetamine XR 10 MG CAP.ER.24H 20 MG PO ×2 (08:36→13:03)
[2021-04-29] MEDS: Sertraline HCL 50 MG TABLET 150 MG PO (08:36)
[2021-04-29] MEDS: Paliperidone ER 9 MG TAB.ER.24 PO (08:37)
--- NOTE | 2021-04-29 09:26 | P.DS_ITS ---
DS: Providers Provider Date of Service: 04/29/21 Date of admission: 04/20/21 14:59 Date of discharge: 04/29/21 Primary care physician: Jefry Robbins MD Attending physician on admission: Ishmael Dunne Consults: 04/19/21 12:18 Addiction Medicine Stat Consulting Provider: Brittany Shepard Reason for consultation: WITHDRAWAL MEDICATION CONSULT Has provider been notified: Yes Attending physician on discharge: Ishmael Dunne DS: Diagnosis Discharge Diagnosis (1) Schizoaffective disorder: Status: Chronic (2) Post traumatic stress disorder (PTSD): Status: Acute (3) ADHD: Status: Acute (4) Opioid use disorder, severe, dependence: Status: Acute DS: Medications Discharge Medications Home Medications: Previous Rx's Medication Instructions Recorded buprenorphine 8 mg-naloxone 2 mg 2 film SUBLINGUAL DAILY 1 Days #2 04/29/21 sublingual film (Suboxone) ea clonidine HCl 0.1 mg tablet 0.1 mg PO BID PRN 30 Days #60 tab 04/29/21 dextroamphetamine-amphetamine ER 20 mg PO BID 30 Days #60 cap 04/29/21 20 mg 24hr capsule,extend release (Adderall XR) lorazepam 1 mg tablet 1 mg PO DAILY PRN 30 Days #30 tab 04/29/21 nicotine 21 mg/24 hr daily 21 mg TRANSDERMAL DAILY PRN 28 04/29/21 transdermal patch Days #28 ea paliperidone 9 mg tablet,extended 9 mg PO DAILY 30 Days #30 tab 04/29/21 release 24 hr (Invega) prazosin 1 mg capsule 1 mg PO BEDTIME 30 Days #30 cap 04/29/21 sertraline 50 mg tablet 150 mg PO DAILY 30 Days #90 tab 04/29/21 trazodone 100 mg tablet 100 mg PO BEDTIME PRN 30 Days #30 04/29/21 tab Mental Status Exam Mental Status Exam Narrative: ?Pt is alert and oriented; behavior is cooperative, friendly, calm; dressed in casual attire, scruffy shaw? but adequate hygiene; mood is described as good and affect congruent; eye contact appropriate; Speech is normal rate, volume and prosody and not pressured; no psychomotor agitation/retardation present; thought process is organized and goal directed; Thought content is on tx and discharge; no paranoid delusions; otherwise pertinent to relevant topics; denies SI; denies HI;? AH remain but are vague mumbles and tolerable. Patients insight and judgment are fair and adequate. DS: Summary Hospital Course Hospital Course: pt is a 40 yo male with hx of schizoaffective disorder, depressed type, ptsd and opiod abuse who presents for worsening depression, ptsd symptoms, AH and delusional thinking in face of being off meds for months and relapse on heroin.? Patient signed a CV on admission. His mood improved and SI fully resolved. Patient was restarted on home medications of pailiperidone for psychotic symptoms And Zoloft for anxiety and PTSD. Patient reported that past Zoloft trial was in affective however he never had a dose higher than 100 mg and agreed to see if it could be effective at higher doses. Patient detoxed using methadone and then was successfully transitioned to Suboxone. Patient's depression resolved and anxiety was considerably reduced; patient was also started on prazosin and reported that nightmares fully resolved as well. Throughout his stay in the unit patient demonstrated good behaviors and impulse control and did not demonstrate any unsafe behaviors; his SI remaining resolved. Patient was also restarted on Adderall which jingle writer agreed to continue on discharge; patient has been on it since early adolescents and he feels that it is an essential component to him staying stable, as it helps him focus and helps him keep his thoughts in order which in turn significantly reduces anxiety. Although patient has long history of substance abuse, jingle writer agrees that the potential benefits of this medication outweigh the risks, for the reasons patient stated as well as stimulant medication Helps with impulse control which helps mitigate risk of relapse. Patient attended groups and was forthcoming in discussions; He was appropriate with both peers and staff. His auditory hallucinations decreased however they did remain; patient said they were tolerable and explained that despite many trials of medication none have ever fully resolved auditory hallucinations; thankfully however paranoid delusional thinking about others did resolve and patient reported feeling more calm and relaxed. He felt that Suboxone was Helpful and at the right dose. Patient Stout stable and ready for discharge. On day of discharge he was in a good mood and optimistic about both staying sober and stable. Patient is not in imminent risk for harm to self or others and his request for discharge honored. Chimney Mechanic also agreed to continue Ativan 1 mg daily p.r.n. for panic attacks. Throughout patient's stay on the unit he has consistently used less Ativan then was made available to him. Patient has history of panic and severe anxiety which place him at risk for relapse; currently his Zoloft is being titrated and once this has reached a therapeutic dose, the Plan would be to reduce and discontinue Ativan. Time spent discussing smoking cessation with patient: 3 to 10 minutes Status at Discharge Functional status at discharge: independent ambulation Overall status at discharge: patient is back to baseline Time Spent with Patient Time attestation: Total time spent providing and/or coordinating discharge services: Time spent: Less than 30 minutes Discharge Plan Discharge Patient Disposition: Home, Self-Care Discharge Diagnosis: Schizoaffective disorder, depressed type Referrals: [facility] [Other] - 04/30/21 10:00 am (Scheduled appointment at [facility] for Suboxone (MAT) treatment ) [facility] Wood [Other] - 04/30/21 11:00 am (Initial diagnostic evaluation with therapist Check your email ([employer]) for link to your appointment You need to attend therapy appointment to receive psychiatric medication management services.) Cassandra Cardenas [Other] - 05/26/21 8:30 am (Initial appointment with psychiatric medication provider Check your email ([email or web address]) for link to your appointment. you need to attend appointment to receive medication management services) Cassandra Cardenas [Other] - 06/25/21 9:20 am ( Medication Management appointments Check your email ([email or web address]) for link to your appointment. you need to attend appointment to receive medication management services) Jefry Robbins MD [Primary Care Provider] - 1 Week (DR. ROBBINS NO LONGER AT [employer]. PT. IS IN ACTIVE AT [employer]) Discharge Medications: New nicotine 21 mg/24 hr Patch 24 Hour 21 mg transdermal DAILY PRN (Reason: smoking cessation) 28 Days Qty: 28 RF: 0 clonidine HCl 0.1 mg Tablet 0.1 mg PO BID PRN (Reason: anxiety) 30 Days Qty: 60 RF: 0 prazosin 1 mg Capsule 1 mg PO BEDTIME 30 Days Qty: 30 RF: 0 buprenorphine-naloxone [Suboxone] 8-2 mg Film 2 film sublingual DAILY 1 Days Qty: 2 RF: 0 dextroamphetamine-amphetamine [Adderall XR] 20 mg capsule,extended release 24hr 20 mg PO BID 30 Days Qty: 60 RF: 0 lorazepam 1 mg Tablet 1 mg PO DAILY PRN (Reason: panic attack(s)) 30 Days Qty: 30 RF: 0 paliperidone [Invega] 9 mg Tablet Extended Release 24 Hr 9 mg PO DAILY 30 Days Qty: 30 RF: 0 sertraline 50 mg Tablet 150 mg PO DAILY 30 Days Qty: 90 RF: 0 trazodone 100 mg Tablet 100 mg PO BEDTIME PRN (Reason: insomnia) 30 Days Qty: 30 RF: 0 Discharge Orders: Discharge Order (Routine); Ordered 04/29/21 Ordered By: Ishmael Dunne Diet: regular diet Activity on Discharge: As tolerated Stand Alone Forms: Patient Portal Discharge page Care Plan Goals: Maintain mood and safe behaviors Take medications as prescribed Continue to pursue sobriety Practice coping skills Continue with outpatient providers and reach out to them as needed Health Concerns: Mood stability and behaviors Sobriety Plan of Treatment: Follow up with your psychiatric provider and other outpatient providers regarding above concerns Take medications as prescribed Assessment: Risk assessment at time of discharge:? Patient was interviewed prior to discharge and found to be fully oriented and without any SI or HI. Patient has insight and demonstrates good judgment in terms of wanting to pursue treatment. Patient is not in imminent risk of harm to self or others and has a safety plan that includes presenting to the closest ER or calling 911 if feeling unsafe.? Patient has been observed closely by nursing and unit staff throughout adm ission; patient has not engaged in any behaviors that suggest dangerousness to self or others and has demonstrated appropriate behaviors and impulse control
[2021-04-29] MEDS: LORazepam 1 MG TABLET PO (12:24)
[2021-04-29] MEDS: Naloxone HCl Nasal TAKE HOME 4 MG SPRAY NOSTRILALT (13:04)
== END 2021-04-29 13:24 | disposition home or self-care (01) | DRG 750 ==
LOC: HO.ED 04-20 14:59 → HO.PM5 04-20 15:10
PROVIDERS: Nurse Practitioner Family; Physician Assistant Medical; Admitting Provider Clinical Nurse Specialist Psychiatric/Mental Health, Adult; Emergency Provider Internal Medicine; PCP Family Medicine; Visit Provider Psychiatry & Neurology Psychiatry
DX: F25.1 Schizoaffective disorder, depressive type (principal); R45.851 Suicidal ideations; Z91.14 Patient's other noncompliance with medication regimen; F90.9 Attention-deficit hyperactivity disorder, unspecified type; F11.20 Opioid dependence, uncomplicated; F43.10 Post-traumatic stress disorder, unspecified; F17.210 Nicotine dependence, cigarettes, uncomplicated; Z20.822 Contact with and (suspected) exposure to COVID-19; Z71.6 Tobacco abuse counseling; Z79.899 Other long term (current) drug therapy
CPT/HCPCS: 36415; 80048; 80061; 80076; 80307; 82077; 82607; 82746; 83036; 83735; 84439; 84443; 85025; 87635; 93005; 99285

== ENCOUNTER → 2021-04-30 10:13 | Outpatient (BNVA) | payer OTHER, SELFPAY | PROVIDERS: Visit Provider Internal Medicine | DX: Z51.81 Encounter for therapeutic drug level monitoring (principal); F11.20 Opioid dependence, uncomplicated; F33.1 Major depressive disorder, recurrent, moderate | CPT/HCPCS: 80305; 99202 ==

== ENCOUNTER → 2021-05-05 09:34 | Outpatient (BNVA) | payer OTHER, SELFPAY | PROVIDERS: Visit Provider Internal Medicine | DX: Z51.81 Encounter for therapeutic drug level monitoring (principal); F11.20 Opioid dependence, uncomplicated | CPT/HCPCS: 80305; 99211 ==

== ENCOUNTER → 2021-05-11 12:49 | Outpatient (BNVA) | payer OTHER, SELFPAY | PROVIDERS: Visit Provider Internal Medicine | DX: Z51.81 Encounter for therapeutic drug level monitoring (principal); F11.20 Opioid dependence, uncomplicated | CPT/HCPCS: 80305; 99211 ==

== ENCOUNTER 2021-05-18 15:11 | Inpatient (IN) | payer OTHER, SELFPAY ==
--- NOTE | 2021-05-18 16:13 | ED_ITS ---
HPI - Psych General Chief Complaint: Psychiatric Symptoms Stated Complaint: Crisis Source: patient Mode of arrival: ambulatory Limitations: no limitations History of Present Illness HPI Narrative: 40-year-old male presents with suicidal ideation and substance abuse. MD complaint: suicidal ideation, feels depressed and substance abuse Onset (ago): week(s) Duration: constant History of same: Yes Relieving factors: none Exacerbating factors: drug use Context: recent drug abuse Associated psychiatric symptoms: depression and suicidal ideation Associated symptoms: denies other symptoms If self harm: admits thoughts of self harm Related Data Home Medications Medication Instructions Recorded Confirmed trazodone 100 mg tablet 100 mg PO BEDTIME 05/18/21 05/18/21 Previous Rx's Medication Instructions Recorded clonidine HCl 0.1 mg tablet 0.1 mg PO BID PRN 30 Days #60 tab 04/29/21 dextroamphetamine-amphetamine ER 20 mg PO BID 30 Days #60 cap 04/29/21 20 mg 24hr capsule,extend release (Adderall XR) lorazepam 1 mg tablet 1 mg PO DAILY PRN 30 Days #30 tab 04/29/21 nicotine 21 mg/24 hr daily 21 mg TRANSDERMAL DAILY PRN 28 04/29/21 transdermal patch Days #28 ea paliperidone 9 mg tablet,extended 9 mg PO DAILY 30 Days #30 tab 04/29/21 release 24 hr (Invega) prazosin 1 mg capsule 1 mg PO BEDTIME 30 Days #30 cap 04/29/21 sertraline 50 mg tablet 150 mg PO DAILY 30 Days #90 tab 04/29/21 naloxone 4 mg/actuation nasal 4 mg INTRANASAL Q2M PRN #2 ea 04/30/21 spray (Narcan) buprenorphine 8 mg-naloxone 2 mg 2 film SUBLINGUAL DAILY 10 Days 05/11/21 sublingual film (Suboxone) #20 ea Allergies Allergy/AdvReac Type Severity Reaction Status Date / Time tomato [Tomato] Allergy Severe DIFFICULTY Verified 04/30/21 10:28 BREATHING, swelling of face and throat divalproex sodium Allergy Mild SEIZURES Verified 04/30/21 10:28 [From Depakote] olanzapine [From Zyprexa] Allergy Mild NIPPLES Verified 04/30/21 10:28 LEAK risperidone [From Risperdal] Allergy Mild UNKNOWN Verified 04/30/21 10:28 quetiapine [From SEROQUEL] Allergy Unknown HEART Verified 04/30/21 10:28 PALPITATIONS lithium [[place]] AdvReac Mild STOMACH Verified 04/30/21 10:28 PAIN aripiprazole [From ABILIFY] AdvReac Unknown DYSTONIA Verified 04/30/21 10:28 Review of Systems Review of Systems: Constitutional: No Fever, No Chills ENT/Mouth: No Ear Pain, No Nasal Congestion, No sore throat Eyes: No Eye Pain, No Swelling, No Redness Cardiovascular: No Chest Pain, No SOB Respiratory: No Cough, No Sputum, No Dyspnea Gastrointestinal: No Nausea, No Vomiting, No Diarrhea, No Hematochezia, No Melena Genitourinary: No Dysuria, No Urinary Frequency, No Hematuria Musculoskeletal: No Myalgias Skin: No Skin Lesions, No rash Neuro: No Weakness, No Numbness, No Paresthesias, No Dizziness, No Headache Psych: positive Anxiety, positive Depression, positive SI, positive substance abuse Heme/Lymph: No Lymphadenopathy Endocrine: No Polyuria, No Polydipsia Yes all other systems are reviewed and are negative [facility] Past Medical History Attestation statement: The following information was validated with the patient. Source: old records reviewed Medical History Cocaine use disorder HTN (hypertension) OCD (obsessive compulsive disorder) Panic anxiety syndrome Post traumatic stress disorder (PTSD) Social History Social History Household Members: None Household Members Other:: lives alone Housing: Apartment Do you presently have visiting nurse or other home services: No Unable to assess alcohol history related to: Unknown Alcohol intake: never Patient Tobacco Use Status: Current everyday Tobacco user Tobacco use type: Cigarette Cigarette Packs Per Day: 0.5 Cigarettes Per Day: 10.0 Years Smoked: 30 Second Hand Smoke Exposure: No Substance Use Type: Heroin and Opiates Advance Directives: No Advance Directives Information Provided: No service: No Sexual orientation: Straight/Heterosexual Physical Exam Vital Signs: Vital Signs: Last Vital Signs Temp 97.6 F 05/18/21 23:21 Pulse 80 05/18/21 23:21 Resp 17 05/18/21 23:21 BP 113/71 05/18/21 23:21 Pulse Ox 95 05/18/21 23:21 BMI result Body Mass Index 28.4 Appearance: Alert. Oriented X3. Moderate psychiatric distress. Eyes: Pupils equal, round and reactive to light. Sclera nonicteric. ENT: Pharynx normal. Moist mucous membranes. Neck: Normal inspection. Neck supple. CVS: Normal heart rate and rhythm. Pulses normal. Respiratory: No respiratory distress. Breath sounds normal. Abdomen: Soft and nontender. Skin: Skin warm and dry. Normal skin color. Normal skin turgor. Extremities: No lower extremity edema. Gait well balanced well coordinated. Neuro: No motor deficit. No sensory deficit. Cranial nerves 2-12 intact. Course Course Course Narrative: 40-year-old male presents with suicidal ideation, auditory and visual villalobos llucinations, and chronic substance abuse. Patient is irritable at the time of my assessment, not willing to answer questions. Is able to speak in complete sentences, talking to family on telephone, ambulating without difficulty. Pacing back and forth on the unit. 19:00 patient visibly tremors, suspected to be either withdrawal or anxiety. Given 2 mg of p.o. Ativan. 21:28 patient continues to have anxiety, evening medications reconciled as well as an order for 1 more mg of Ativan p.o.. Patient is compliant with care and is polite at this time. 21:52 physician observation started at this time. Crisis consult pending MDM - Psych Differential Diagnosis Differential diagnosis: Likely acute psychosis, suicidal ideation, depression, drug-induced psychotic disorder, acute anxiety, substance abuse and mood disorder Medical Records Attestation: I reviewed the patient's medical records. Lab Data Attestation: I reviewed the patient's lab results. Labs: Lab Results 05/18/21 Range/Units 16:39 COVID-19 (SHAYY) Negative (Negative) COVID-19 Clin Com See Note Discharge Plan Discharge Clinical Impression: Depression, Opioid use disorder, severe, dependence, Suicidal ideation, Drug- induced psychotic disorder Patient Disposition: Still a Patient Prescriptions: No Action buprenorphine-naloxone [Suboxone] 8-2 mg film 2 film sublingual DAILY 10 Days Qty: 20 0RF Rx Instructions: place 1 strip/tab under (each) side of tongue; JACLYN # [id number] nicotine 21 mg/24 hr Patch 24 Hour 21 mg transdermal DAILY PRN (Reason: smoking cessation) 28 Days Qty: 28 0RF clonidine HCl 0.1 mg Tablet 0.1 mg PO BID PRN (Reason: anxiety) 30 Days Qty: 60 0RF Protocol: Hold for SBP< HOLD for SBP < : 90 prazosin 1 mg Capsule 1 mg PO BEDTIME 30 Days Qty: 30 0RF Protocol: Hold for SBP< HOLD for SBP < : 90 dextroamphetamine-amphetamine [Adderall XR] 20 mg capsule,extended release 24hr 20 mg PO BID 30 Days Qty: 60 0RF Rx Instructions: take 1 capsule 8am and 1 capsule at 1pm lorazepam 1 mg Tablet 1 mg PO DAILY PRN (Reason: panic attack(s)) 30 Days Qty: 30 0RF paliperidone [Invega] 9 mg Tablet Extended Release 24 Hr 9 mg PO DAILY 30 Days Qty: 30 0RF sertraline 50 mg Tablet 150 mg PO DAILY 30 Days Qty: 90 0RF trazodone 100 mg tablet 100 mg PO BEDTIME 0RF naloxone [Narcan] 4 mg/actuation spray,non-aerosol 4 mg intranasal Q2M PRN (Reason: opioid overdose) Qty: 2 0RF Rx Instructions: spray 1 dose into ONE nostril; alternate nostrils w each dose until help arrives
[2021-05-18 17:05] LABS: COVID-19 Test Negative (Negative)
[2021-05-18 17:20] VITALS: BP 149/84; PULSE 105; RESP 16; TEMP 37.2; O2SAT 96; BMI 28.4
[2021-05-18] MEDS: LORazepam 1 MG TABLET 2 MG PO (18:50)
[2021-05-18 21:36] VITALS: BP 133/77; PULSE 101; RESP 19; O2SAT 95
[2021-05-18 23:21] VITALS: BP 113/71; PULSE 80; RESP 17; TEMP 36.4; O2SAT 95
--- NOTE | 2021-05-19 | ECG_ITS ---
Test Reason : med clearance Blood Pressure : / mmHG Vent. Rate : 082 BPM Atrial Rate : 082 BPM P-R Int : 146 ms QRS Dur : 092 ms QT Int : 378 ms P-R-T Axes : 064 021 051 degrees QTc Int : 441 ms Normal sinus rhythm Normal ECG When compared with ECG of 20-APR-2021 12:45, No significant change was found Referred By: Vandana Francisco Electronically Signed By:Jorge Bowman
[2021-05-19 02:01] VITALS: BP 140/84; PULSE 84; RESP 18
[2021-05-19] MEDS: LORazepam 1 MG TABLET PO ×2 (02:03→16:54)
[2021-05-19] MEDS: Prazosin HCL 1 MG CAPSULE PO (02:03)
[2021-05-19] MEDS: Nicotine 21 MG PATCH.TD24 TRANSDERMA (05:15)
[2021-05-19 05:47] LABS: Amphetamine Screen Urine Not Detected (Not Detect); Barbiturates, Urine Not Detected (Not Detect); Benzodiazepines Screen Urine Not Detected (Not Detect); Cannabinoid Screen Urine Not Detected (Not Detect); Cocaine Screen Urine POSITIVE (Not Detect); Fentanyl, urine POSITIVE (Not Detect); Opiate Screen Urine POSITIVE (Not Detect); Phencyclidine Screen Urine Not Detected (Not Detect)
--- NOTE | 2021-05-19 05:50 | PC.NURSE ---
Patient stayed up whole night, behavior argumentative and confrontational most part of the night with staff member and [facility] clinician, disposition per [facility] is section 12 inpatient bed search, care team aware possible M3 admission in the morning, medication compliant, will continue to monitor.
--- NOTE | 2021-05-19 07:25 | PC.NURSE ---
patient was awake upon t/ws arrival to unit, gently pacing and awaiting morning med pass, appropriately requesting snacks. patient appears in no distress
[2021-05-19] MEDS: Buprenorphine/Naloxone 8/2 mg FILM 2 FILM SUBLINGUAL (08:12)
[2021-05-19] MEDS: Dextroamphetamine/Amphetamine XR 10 MG CAP.ER.24H 20 MG PO (08:14)
[2021-05-19] MEDS: Sertraline HCL 50 MG TABLET 150 MG PO (08:14)
[2021-05-19] MEDS: Paliperidone ER 9 MG TAB.ER.24 PO (09:21)
[2021-05-19 09:52] LABS: Alanine Aminotransferase 48 U/L (0-40); Albumin Level 4.3 g/dL (3.5-5.0); Alkaline Phosphatase 120 U/L (39-117); Anion Gap 11 (12-20); Aspartate Amino Transferase 45 U/L (5-37); Bilirubin Total 0.3 mg/dL (0.0-1.0); Blood Urea Nitrogen 23 mg/dL (9-16); Calcium 9.1 mg/dL (8.4-10.2); Carbon Dioxide 26 mmol/L (22-29); Chloride 105 mmol/L (96-108); Creatinine Clr Calc Pharmacy 130.8; Estimated Glomerular Filt Rate > 60; Glucose Random 98 mg/dL (60-115); Potassium 4.8 mmol/L (3.3-5.1); Sodium 137 mmol/L (135-145); Total Protein 7.2 g/dL (6.5-8.0)
[2021-05-19 09:56] LABS: COVID-19 Test Negative (Negative)
[2021-05-19 11:15] VITALS: BP 150/94; PULSE 93; RESP 16; TEMP 36.6; O2SAT 99
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
[2021-05-19 12:42] LABS: MANUAL DIFF FLAG NO
[2021-05-19 12:45] LABS: Basophils Percent Auto 0.5 % (0-2); Eosinophils Absolute Auto 0.2 X10*3/uL (0.0-0.4); Eosinophils Percent Auto 4.5 % (0-4); Hematocrit 40.3 % (42.0-52.0); Hemoglobin 13.5 g/dl (14.0-18.0); Imm Gran Abs Auto 0.01 X10*3/uL (0.00-0.03); Imm Gran Pct Auto 0.2 % (0.0-0.4); Lymphocytes Absolute Auto 1.3 X10*3/uL (1.2-4.9); Lymphocytes Percent Auto 31.1 % (20-40); Mean Corpuscular HGB Conc 33.5 g/dl (31.0-36.0); Mean Corpuscular Volume 86.5 fL (80.0-98.0); Mean Platelet Volume 11.8 fL (9.4-12.4); Monocytes Absolute Auto 0.3 X10*3/uL (0.1-1.2); Monocytes Percent Auto 7.6 % (2-11); Neutrophils Absolute Auto 2.4 x10*3/uL (2.0-8.3); Neutrophils Percent Auto 56.1 % (45-73); Platelet Count 147 X10*3/uL (160-400); Red Blood Count 4.66 X10*6/uL (4.60-5.80); Red Cell Distribution Width 12.5 % (11.0-16.0); White Blood Count 4.2 X10*3/uL (4.8-10.8)
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
[2021-05-19 21:11] VITALS: BP 137/85; PULSE 84; TEMP 35.9; O2SAT 98
[2021-05-20] MEDS: Sertraline HCL 50 MG TABLET 150 MG PO (08:00)
[2021-05-20] MEDS: Buprenorphine/Naloxone 8/2 mg FILM 2 FILM SUBLINGUAL (08:00)
[2021-05-20] MEDS: Paliperidone ER 9 MG TAB.ER.24 PO (08:00)
[2021-05-20 08:14] VITALS: BP 119/65; PULSE 89; RESP 16; TEMP 36.7; O2SAT 98
[2021-05-20 08:55] LABS: Cholesterol 142 mg/dL; HDL Cholesterol 69 mg/dL; LDL Cholesterol Calculated 61 mg/dl; Triglycerides 61 mg/dL
[2021-05-20 09:15] LABS: Estimated Average Glucose 105 mg/dL; Hemoglobin A1c % 5.3 %; Thyroid Stimulating Hormone 0.94 uIU/mL (0.32-4.0)
[2021-05-20 10:01] LABS: Folate 15.8 ng/mL (> or = 4.0); Vitamin B12 449 pg/mL (200-900)
[2021-05-20 12:09] VITALS: BMI 29.0
[2021-05-20] MEDS: LORazepam 1 MG TABLET PO (13:46)
--- NOTE | 2021-05-20 18:01 | P.PNPSI_ITS ---
Subjective Subjective Date of Service: 05/20/21 Reason For Visit: SI Subjective Notes: Earl Warning and Conditional Voluntary Healthcare Proxy: No Guardianship: No Medical Problems Affecting Mental Status: No Interim History: Patient seen and discussed with team. Patient evaluated this morning and upon interview he reports Im alright, says he feels fine and that im just ready to leave. He is eating and says he is sleeping a little too much, there's nothing really to do. Went to one group. Again reports that last week his suboxone didn?t get called in and he went 3 days without it, says he then felt really sick, relapsed. He wont meet his psych provider Cassandra Cardenas until the . Says he is still tres depressed but I deal with it, does not want an increase in zoloft, denies noticing any benefit from dose increase during last inpatient stay. Says he has been on Zoloft for so long and its not like im depressed all the time. A lot of it is si tuational. Denies nightmares. Prefers PRN ativan to clonidine. Says he likes his suboxone dose, declines consult with water resource specialist, will be sarting with a gymnastics coach. Again asks for adderall, I need my medication, I don?t abuse it. Denies withdrawal sx. In the milieu, patient is safe but isolative and minimally engaged in treatment. Denies SI/SIB/HI upon inquiry. Somewhat irritabile. Says he feels safe. Medication Compliance: Yes Side effects from medications: No Attending Groups: Intermittent Review of Systems Acute medical concerns: No Medical Review of Systems: unchanged Mental Status Exam Mental Status Exam Narrative: A&O. Sitting in bed, casual dress. Okay eye contact, attentive. No Tics or Tremors. No abnormal involuntary movements. Agitated, guarded, difficult to engage. Non-pressured speech, spontaneous with regular rate and rhythm, normal volume and prosody. No prolonged speech latency or dysarthria. Mood is fine, affect is constricted. Denies SI/SIB/HI upon inquiry. Thoughts are perseverative on adderall. Insight/ Judgment is poor. Diagnostics Vital Signs (24Hr): Vital Signs - 24 hr 05/19/21 21:11 05/20/21 08:14 Temperature 96.6 F L 98.1 F Pulse Rate 84 89 Respiratory Rate 16 Blood Pressure 137/85 119/65 Pulse Oximetry 98 98 BMI result Body Mass Index 29.0 Labs Results: 05/19/21 12:37 05/19/21 09:15 Labs: Laboratory Results - last 48 hr 05/19/21 05/19/21 05/19/21 05:12 09:15 09:15 WBC RBC Hgb Hct MCV MCH MCHC RDW Plt Count MPV Immature Gran % (Auto) Neut % (Auto) Lymph % (Auto) [facility] % (Auto) Eos % (Auto) Baso % (Auto) Lymph # (Auto) [facility] # (Auto) Eos # (Auto) Baso # (Auto) Abs Immat Gran (auto) Absolute Neuts (auto) Absolute Nucleated RBC Nucleated RBC % (auto) Sodium 137 Potassium 4.8 D Chloride 105 Carbon Dioxide 26 Anion Gap 11 L BUN 23 H D Creatinine 0.83 Estim Creat Clear Calc 130.8 Estimated GFR > 60 Random Glucose 98 D Estimat Average Glucose Hemoglobin A1c % Calcium 9.1 Total Bilirubin 0.3 AST 45 H D ALT 48 H Alkaline Phosphatase 120 H D Total Protein 7.2 Albumin 4.3 D Triglycerides Cholesterol LDL Cholesterol, Calc HDL Cholesterol Vitamin B12 Folate TSH Urine Opiates Screen POSITIVE H Urine Fentanyl Screen POSITIVE H Ur Barbiturates Screen Not Detected Ur Phencyclidine Scrn Not Detected Ur Amphetamines Screen Not Detected U Benzodiazepines Scrn Not Detected Urine Cocaine Screen POSITIVE H U Marijuana (THC) Screen Not Detected COVID-19 (SHAYY) Negative COVID-19 Clin Com See Note 05/19/21 05/20/21 05/20/21 12:37 08:22 08:22 WBC 4.2 L RBC 4.66 Hgb 13.5 L Hct 40.3 L MCV 86.5 MCH 29.0 MCHC 33.5 RDW 12.5 Plt Count 147 L MPV 11.8 Immature Gran % (Auto) 0.2 Neut % (Auto) 56.1 Lymph % (Auto) 31.1 [facility] % (Auto) 7.6 Eos % (Auto) 4.5 H Baso % (Auto) 0.5 Lymph # (Auto) 1.3 [facility] # (Auto) 0.3 Eos # (Auto) 0.2 Baso # (Auto) 0.0 Abs Immat Gran (auto) 0.01 Absolute Neuts (auto) 2.4 Absolute Nucleated RBC 0.000 Nucleated RBC % (auto) 0.0 Sodium Potassium Chloride Carbon Dioxide Anion Gap BUN Creatinine Estim Creat Clear Calc Estimated GFR Random Glucose Estimat Average Glucose 105 Hemoglobin A1c % 5.3 Calcium Total Bilirubin AST ALT Alkaline Phosphatase Total Protein Albumin Triglycerides 61 Cholesterol 142 D LDL Cholesterol, Calc 61 HDL Cholesterol 69 Vitamin B12 Folate TSH 0.94 Urine Opiates Screen Urine Fentanyl Screen Ur Barbiturates Screen Ur Phencyclidine Scrn Ur Amphetamines Screen U Benzodiazepines Scrn Urine Cocaine Screen U Marijuana (THC) Screen COVID-19 (SHAYY) COVID-19 [place] 05/20/21 08:22 WBC RBC Hgb Hct MCV MCH MCHC RDW Plt Count MPV Immature Gran % (Auto) Neut % (Auto) Lymph % (Auto) [facility] % (Auto) Eos % (Auto) Baso % (Auto) Lymph # (Auto) [facility] # (Auto) Eos # (Auto) Baso # (Auto) Abs Immat Gran (auto) Absolute Neuts (auto) Absolute Nucleated RBC Nucleated RBC % (auto) Sodium Potassium Chloride Carbon Dioxide Anion Gap BUN Creatinine Estim Creat Clear Calc Estimated GFR Random Glucose Estimat Average Glucose Hemoglobin A1c % Calcium Total Bilirubin AST ALT Alkaline Phosphatase Total Protein Albumin Triglycerides Cholesterol LDL Cholesterol, Calc HDL Cholesterol Vitamin B12 449 Folate 15.8 TSH Urine Opiates Screen Urine Fentanyl Screen Ur Barbiturates Screen Ur Phencyclidine Scrn Ur Amphetamines Screen U Benzodiazepines Scrn Urine Cocaine Screen U Marijuana (THC) Screen COVID-19 (SHAYY) COVID-19 [place] Com Medications Medications Current Medications Acetaminophen (Acetaminophen 325 Mg Tablet) 650 mg PO Q6H PRN PRN Reason: Headache/Pain Mild Scale (1-3) Al Hydroxide/Mg Hydroxide (Magnesium Hydrox/Alum Hydrox 30 Ml Oral.Susp) 30 ml PO Q6H PRN PRN Reason: Heartburn/Nausea Buprenorphine/Naloxone (Buprenorphine/Naloxone 8/2 Mg Film) 2 film SUBLINGUAL DAILY [facility] Last Admin: 05/20/21 08:00 Dose: 2 film Documented by: Clonidine HCl (Clonidine Hcl 0.1 Mg Tablet) 0.1 mg PO BID PRN; Protocol PRN Reason: anxiety Hydroxyzine HCl (Hydroxyzine Hcl 25 Mg Tablet) 25 mg PO Q6H PRN PRN Reason: Anxiety Lorazepam (Lorazepam 1 Mg Tablet) 1 mg PO DAILY PRN PRN Reason: panic attack(s) Last Admin: 05/20/21 13:46 Dose: 1 mg Documented by: Magnesium Hydroxide (Milk Of Magnesia 30 Ml Oral.Susp) 30 ml PO DAILY PRN PRN Reason: Constipation Naloxone HCl (Naloxone Hcl Nasal 4 Mg [place]) 4 mg NOSTRILALT Q2M PRN PRN Reason: opioid overdose Nicotine (Nicotine 21 Mg Patch.Td24) 21 mg TRANSDERMA DAILY PRN PRN Reason: smoking cessation Last Admin: 05/19/21 05:15 Dose: 21 mg Documented by: Paliperidone (Paliperidone Er 9 Mg Tab.Er.24) 9 mg PO DAILY [facility] Last Admin: 05/20/21 08:00 Dose: 9 mg Documented by: Prazosin HCl (Prazosin Hcl 1 Mg Capsule) 1 mg PO BEDTIME RISSA; Protocol Last Admin: 05/19/21 23:25 Dose: Not Given Documented by: Sertraline HCl (Sertraline Hcl 50 Mg Tablet) 150 mg PO DAILY [facility] Last Admin: 05/20/21 08:00 Dose: 150 mg Documented by: Trazodone HCl (Trazodone Hcl 100 Mg Tablet) 100 mg PO BEDTIME [facility] Last Admin: 05/19/21 23:25 Dose: Not Given Documented by: Trazodone HCl (Trazodone Hcl 50 Mg Tablet) 50 mg PO BEDTIME PRN PRN Reason: Insomnia Allergies Allergies Allergy/AdvReac Type Severity Reaction Status Date / Time tomato [Tomato] Allergy Severe DIFFICULTY Verified 04/30/21 10:28 BREATHING, swelling of face and throat divalproex sodium Allergy Mild SEIZURES Verified 04/30/21 10:28 [From Depakote] olanzapine [From Zyprexa] Allergy Mild NIPPLES Verified 04/30/21 10:28 LEAK risperidone [From Risperdal] Allergy Mild UNKNOWN Verified 04/30/21 10:28 quetiapine [From SEROQUEL] Allergy Unknown HEART Verified 04/30/21 10:28 PALPITATIONS lithium [[place]] AdvReac Mild STOMACH Verified 04/30/21 10:28 PAIN aripiprazole [From ABILIFY] AdvReac Unknown DYSTONIA Verified 04/30/21 10:28 Assessment & Plan Assessment & Plan (1) Cocaine use disorder: Status: Acute Code(s): F14.10 - Cocaine abuse, uncomplicated (2) Schizoaffective disorder, depressive type: Status: Acute Code(s): F25.1 - Schizoaffective disorder, depressive type (3) Opioid use disorder, severe, dependence: Status: Acute Code(s): F11.20 - Opioid dependence, uncomplicated (4) Post traumatic stress disorder (PTSD): Status: Acute Code(s): F43.10 - Post-traumatic stress disorder, unspecified Plan Jaswinder is a 40 y.o. Male who carries a dx of schizoaffective disorder, depressed type, PTSD, opioid use disorder, and cocaine use disorder. Per Lalitha jang pt reported that his friends brought him to [facility] on [facility]21 due to feeling SI and hearing command voices tell him to kill himself. Pt was recently discharged from [facility] 04/21/21-04/29/21 due to worsening depression and relapse on heroin. He was prescribed adderall and ativan during last inpatient stay and is fixated on adderall script. Discussed that I would not prescribe this, as it is a controlled substance and he has been using illicit substances and off suboxone (says he was unable to obtain his script). Pt is agitated and signed 3 day notice, does not want med changes. 05/20/21: Pt does not want med changes. Continues to request adderall script. Has limited insight/ judgment, as he has hx of chronically relapsing. Plan: Monitor response to medications. Monitor for safety in the milieu. Discharge on stabilization. Patient seen. Chart reviewed. Discussed with team. Obtain collateral contact info as needed I spent minutes with the patient and/or on the patient floor today, greater than?50% of which was spent counseling/coordinating care. Reason for contiued inpatient stay Substantial Risk for: harm to self, inability to function, rapid decompensation and med/psych decompensation
[2021-05-20 22:00] VITALS: RESP 18
[2021-05-20] MEDS: Prazosin HCL 1 MG CAPSULE PO (22:09)
[2021-05-20] MEDS: traZODone HCL 100 MG TABLET PO (22:09)
[2021-05-20] MEDS: hydrOXYzine HCL 25 MG TABLET PO (22:09)
[2021-05-20 22:14] VITALS: BP 106/69; PULSE 85; TEMP 36.6; O2SAT 97
[2021-05-21 08:50] VITALS: BP 101/66; PULSE 92; RESP 15; TEMP 36.8; O2SAT 97
[2021-05-21] MEDS: Sertraline HCL 50 MG TABLET 150 MG PO (10:02)
[2021-05-21] MEDS: Paliperidone ER 9 MG TAB.ER.24 PO (10:02)
[2021-05-21] MEDS: Buprenorphine/Naloxone 8/2 mg FILM 2 FILM SUBLINGUAL (10:02)
--- NOTE | 2021-05-21 17:23 | P.PNPSI_ITS ---
Subjective Subjective Date of Service: 05/21/21 Reason For Visit: SI Interim History: Patient seen and discussed with team. Patient evaluated this today and upon interview he is doing fine. He has not been going to groups. Says his sleep is alright and he is eating. Describes his mood as bored. Pt lives on his own but identifies having support at his suboxone clinic at [facility], has referral for a assistant women's tennis coach, and has a therapist (only spoke with her over the phone). He denies having questions or concerns. His 3 day is up on Monday. Discussed that no controlled substances would be sent on discharge, which pt is unhappy with. In the milieu, patient is safe and appropriate in behavior. Denies SI/SIB/HI upon inquiry. Denies irritability or assaultive ideation. Says he feels safe. Medication Compliance: Yes Side effects from medications: No Attending Groups: No Review of Systems Acute medical concerns: No Medical Review of Systems: unchanged Mental Status Exam Mental Status Exam Narrative: A&O. Sitting in bed, casual dress. Okay eye contact, attentive. No Tics or Tremors. No abnormal involuntary movements. Agitated, guarded, difficult to engage. Non-pressured speech, spontaneous with regular rate and rhythm, normal volume and prosody. No prolonged speech latency or dysarthria. Mood is alright, affect is constricted. Denies SI/SIB/HI upon inquiry. Thoughts are perseverative on adderall. Insight/ Judgment is poor. Diagnostics Vital Signs (24Hr): Vital Signs - 24 hr 05/20/21 22:00 05/20/21 22:14 05/21/21 08:50 Temperature 97.8 F 98.3 F Pulse Rate 85 92 Respiratory Rate 18 15 Blood Pressure 106/69 101/66 Pulse Oximetry 97 97 BMI result Body Mass Index 29.0 Labs Results: 05/19/21 12:37 05/19/21 09:15 Labs: Laboratory Results - last 48 hr 05/20/21 05/20/21 05/20/21 08:22 08:22 08:22 Estimat Average Glucose 105 Hemoglobin A1c % 5.3 Triglycerides 61 Cholesterol 142 D LDL Cholesterol, Calc 61 HDL Cholesterol 69 Vitamin B12 449 Folate 15.8 TSH 0.94 Medications Medications Current Medications Acetaminophen (Acetaminophen 325 Mg Tablet) 650 mg PO Q6H PRN PRN Reason: Headache/Pain Mild Scale (1-3) Al Hydroxide/Mg Hydroxide (Magnesium Hydrox/Alum Hydrox 30 Ml Oral.Susp) 30 ml PO Q6H PRN PRN Reason: Heartburn/Nausea Buprenorphine/Naloxone (Buprenorphine/Naloxone 8/2 Mg Film) 2 film SUBLINGUAL DAILY [facility] Last Admin: 05/21/21 10:02 Dose: 2 film Documented by: Clonidine HCl (Clonidine Hcl 0.1 Mg Tablet) 0.1 mg PO BID PRN; Protocol PRN Reason: anxiety Hydroxyzine HCl (Hydroxyzine Hcl 25 Mg Tablet) 25 mg PO Q6H PRN PRN Reason: Anxiety Last Admin: 05/20/21 22:09 Dose: 25 mg Documented by: Lorazepam (Lorazepam 1 Mg Tablet) 1 mg PO DAILY PRN PRN Reason: panic attack(s) Last Admin: 05/20/21 13:46 Dose: 1 mg Documented by: Magnesium Hydroxide (Milk Of Magnesia 30 Ml Oral.Susp) 30 ml PO DAILY PRN PRN Reason: Constipation Naloxone HCl (Naloxone Hcl Nasal 4 Mg [place]) 4 mg NOSTRILALT Q2M PRN PRN Reason: opioid overdose Nicotine (Nicotine 21 Mg Patch.Td24) 21 mg TRANSDERMA DAILY PRN PRN Reason: smoking cessation Last Admin: 05/19/21 05:15 Dose: 21 mg Documented by: Paliperidone (Paliperidone Er 9 Mg Tab.Er.24) 9 mg PO DAILY [facility] Last Admin: 05/21/21 10:02 Dose: 9 mg Documented by: Prazosin HCl (Prazosin Hcl 1 Mg Capsule) 1 mg PO BEDTIME [facility]; Protocol Last Admin: 05/20/21 22:09 Dose: 1 mg Documented by: Sertraline HCl (Sertraline Hcl 50 Mg Tablet) 150 mg PO DAILY [facility] Last Admin: 05/21/21 10:02 Dose: 150 mg Documented by: Trazodone HCl (Trazodone Hcl 100 Mg Tablet) 100 mg PO BEDTIME [facility] Last Admin: 05/20/21 22:09 Dose: 100 mg Documented by: Trazodone HCl (Trazodone Hcl 50 Mg Tablet) 50 mg PO BEDTIME PRN PRN Reason: Insomnia Allergies Allergies Allergy/AdvReac Type Severity Reaction Status Date / Time tomato [Tomato] Allergy Severe DIFFICULTY Verified 04/30/21 10:28 BREATHING, swelling of face and throat divalproex sodium Allergy Mild SEIZURES Verified 04/30/21 10:28 [From Depakote] olanzapine [From Zyprexa] Allergy Mild NIPPLES Verified 04/30/21 10:28 LEAK risperidone [From Risperdal] Allergy Mild UNKNOWN Verified 04/30/21 10:28 quetiapine [From SEROQUEL] Allergy Unknown HEART Verified 04/30/21 10:28 PALPITATIONS lithium [[place]] AdvReac Mild STOMACH Verified 04/30/21 10:28 PAIN aripiprazole [From ABILIFY] AdvReac Unknown DYSTONIA Verified 04/30/21 10:28 Assessment & Plan Assessment & Plan (1) Cocaine use disorder: Status: Acute Code(s): F14.10 - Cocaine abuse, uncomplicated (2) Schizoaffective disorder, depressive type: Status: Acute Code(s): F25.1 - Schizoaffective disorder, depressive type (3) Opioid use disorder, severe, dependence: Status: Acute Code(s): F11.20 - Opioid dependence, uncomplicated (4) Post traumatic stress disorder (PTSD): Status: Acute Code(s): F43.10 - Post-traumatic stress disorder, unspecified Plan Jaswinder is a 40 y.o. Male who carries a dx of schizoaffective disorder, depressed type, PTSD, opioid use disorder, and cocaine use disorder. Per VENANCIO jang pt reported that his friends brought him to [facility] on 05/18/21 due to feeling SI and hearing command voices tell him to kill himself. Pt was recently discharged from [facility] 04/21/21-04/29/21 due to worsening depression and relapse on heroin. He was prescribed adderall and ativan during last inpatient stay and is fixated on adderall script. Discussed that I would not prescribe this, as it is a controlled substance and he has been using illicit substances and off s uboxone (says he was unable to obtain his script). Pt is agitated and signed 3 day notice, does not want med changes. 05/20/21: Pt does not want med changes. Continues to request adderall script. Has limited insight/ judgment, as he has hx of chronically relapsing. 05/21/21: Pt is minimally engaging in treatment. I contacted pt's suboxone prescriber, however I am waiting to hear back, as I reviewed tomekat and it appears he had a 7 day script sent on 05/03/21 and a 10 day script sent on 05/11/21, so may have only had one day without it, however pt reports he went 3 days without it. Plan: Monitor response to medications. Monitor for safety in the milieu. Discharge on stabilization. Patient seen. Chart reviewed. Discussed with team. Obtain collateral contact info as needed I spent minutes with the patient and/or on the patient floor today, greater than?50% of which was spent counseling/coordinating care. Reason for contiued inpatient stay Substantial Risk for: rapid decompensation and med/psych decompensation
[2021-05-21] MEDS: LORazepam 1 MG TABLET PO (17:34)
[2021-05-21 22:06] VITALS: BP 107/64; PULSE 83; RESP 16; TEMP 37; O2SAT 98
[2021-05-21] MEDS: traZODone HCL 100 MG TABLET PO (22:10)
[2021-05-21] MEDS: Prazosin HCL 1 MG CAPSULE PO (22:10)
[2021-05-22] MEDS: Paliperidone ER 9 MG TAB.ER.24 PO (10:23)
[2021-05-22] MEDS: Sertraline HCL 50 MG TABLET 150 MG PO (10:23)
[2021-05-22] MEDS: Buprenorphine/Naloxone 8/2 mg FILM 2 FILM SUBLINGUAL (10:23)
[2021-05-22] MEDS: LORazepam 1 MG TABLET PO (11:17)
[2021-05-22 11:39] VITALS: BP 113/70; PULSE 110; RESP 17; TEMP 37.1; O2SAT 97
[2021-05-22] MEDS: Nicotine 21 MG PATCH.TD24 TRANSDERMA (12:03)
--- NOTE | 2021-05-22 15:50 | HO.PSYCHPN ---
Subjective Subjective Date of Service: 05/22/21 Reason For Visit: SI Interim History: Patient seen and discussed with team. Patient reports he is fine . He was isolative. He is generally irritable and flat. He denies any SI. He says his medications were fine. referring to the fact his Adderall was stopped. No groups. Pt lives on his own but identifies having support at [place] [facility], has referral for a riding coach, and has a therapist (only spoke with her over the phone). He denies having questions or concerns. His 3 day is up on Monday. Discussed that no controlled substances would be sent on discharge. In the milieu, patient is safe and appropriate in behavior. Denies SI/SIB/HI upon inquiry. Denies irritability or assaultive ideation. Says he feels safe. Review of Systems Review of Systems CVS: No c/o chest pain, palpitations, no SOB INSTRUCTOR OF SOCIOLOGY: No c/o dizziness, headache GI: No c/o Nausea, Vomiting, diarrhea, constipation or heartburn Yes all other systems are reviewed and are negative Mental Status Exam Mental Status Exam Narrative: A&O. Sitting in bed, casual dress. Okay eye contact, attentive. No Tics or Tremors. No abnormal involuntary movements. Agitated, guarded, difficult to engage. Non-pressured speech, spontaneous with regular rate and rhythm, normal volume and prosody. No prolonged speech latency or dysarthria. Mood is alright, affect is constricted. Denies SI/SIB/HI upon inquiry. Thoughts are perseverative on adderall. Insight/ Judgment is poor. Diagnostics Vital Signs (24Hr): Vital Signs - 24 hr 05/21/21 22:06 05/22/21 11:39 Temperature 98.6 F 98.7 F Pulse Rate 83 110 H Respiratory Rate 16 17 Blood Pressure 107/64 113/70 Pulse Oximetry 98 97 BMI result Body Mass Index 29.0 Labs Results: 05/19/21 12:37 05/19/21 09:15 Medications Medications Current Medications Acetaminophen (Acetaminophen 325 Mg Tablet) 650 mg PO Q6H PRN PRN Reason: Headache/Pain Mild Scale (1-3) Al Hydroxide/Mg Hydroxide (Magnesium Hydrox/Alum Hydrox 30 Ml Oral.Susp) 30 ml PO Q6H PRN PRN Reason: Heartburn/Nausea Buprenorphine/Naloxone (Buprenorphine/Naloxone 8/2 Mg Film) 2 film SUBLINGUAL DAILY [facility] Last Admin: 05/22/21 10:23 Dose: 2 film Documented by: Clonidine HCl (Clonidine Hcl 0.1 Mg Tablet) 0.1 mg PO BID PRN; Protocol PRN Reason: anxiety Hydroxyzine HCl (Hydroxyzine Hcl 25 Mg Tablet) 25 mg PO Q6H PRN PRN Reason: Anxiety Last Admin: 05/20/21 22:09 Dose: 25 mg Documented by: Lorazepam (Lorazepam 1 Mg Tablet) 1 mg PO DAILY PRN PRN Reason: panic attack(s) Last Admin: 05/22/21 11:17 Dose: 1 mg Documented by: Magnesium Hydroxide (Milk Of Magnesia 30 Ml Oral.Susp) 30 ml PO DAILY PRN PRN Reason: Constipation Naloxone HCl (Naloxone Hcl Nasal 4 Mg [place]) 4 mg NOSTRILALT Q2M PRN PRN Reason: opioid overdose Nicotine (Nicotine 21 Mg Patch.Td24) 21 mg TRANSDERMA DAILY [facility] Last Admin: 05/22/21 15:40 Dose: Not Given Documented by: Nicotine Polacrilex (Nicotine Polacrilex 2 Mg Gum) 2 mg BUCCAL Q2H PRN PRN Reason: Nicotine Cravings Paliperidone (Paliperidone Er 9 Mg Tab.Er.24) 9 mg PO DAILY [facility] Last Admin: 05/22/21 10:23 Dose: 9 mg Documented by: Prazosin HCl (Prazosin Hcl 1 Mg Capsule) 1 mg PO BEDTIME RISSA; Protocol Last Admin: 05/21/21 22:10 Dose: 1 mg Documented by: Sertraline HCl (Sertraline Hcl 50 Mg Tablet) 150 mg PO DAILY [facility] Last Admin: 05/22/21 10:23 Dose: 150 mg Documented by: Trazodone HCl (Trazodone Hcl 100 Mg Tablet) 100 mg PO BEDTIME [facility] Last Admin: 05/21/21 22:10 Dose: 100 mg Documented by: Trazodone HCl (Trazodone Hcl 50 Mg Tablet) 50 mg PO BEDTIME PRN PRN Reason: Insomnia Allergies Allergies Allergy/AdvReac Type Severity Reaction Status Date / Time tomato [Tomato] Allergy Severe DIFFICULTY Verified 04/30/21 10:28 BREATHING, swelling of face and throat divalproex sodium Allergy Mild SEIZURES Verified 04/30/21 10:28 [From Depakote] olanzapine [From Zyprexa] Allergy Mild NIPPLES Verified 04/30/21 10:28 LEAK risperidone [From Risperdal] Allergy Mild UNKNOWN Verified 04/30/21 10:28 quetiapine [From SEROQUEL] Allergy Unknown HEART Verified 04/30/21 10:28 PALPITATIONS lithium [[place]] AdvReac Mild STOMACH Verified 04/30/21 10:28 PAIN aripiprazole [From ABILIFY] AdvReac Unknown DYSTONIA Verified 04/30/21 10:28 Assessment & Plan Assessment & Plan (1) Cocaine use disorder: Status: Acute Code(s): F14.10 - Cocaine abuse, uncomplicated (2) Schizoaffective disorder, depressive type: Status: Acute Code(s): F25.1 - Schizoaffective disorder, depressive type (3) Opioid use disorder, severe, dependence: Status: Acute Code(s): F11.20 - Opioid dependence, uncomplicated (4) Post traumatic stress disorder (PTSD): Status: Acute Code(s): F43.10 - Post-traumatic stress disorder, unspecified Plan Jaswinder is a 40 y.o. Male who carries a dx of schizoaffective disorder, depressed type, PTSD, opioid use disorder, and cocaine use disorder. Per VENANCIO jang pt reported that his friends brought him [place] [facility] [place] due to feeling SI and hearing command voices tell him to kill himself. Pt was recently discharged from [facility] 04/21/21-04/29/21 due to worsening depression and relapse on heroin. He was prescribed adderall and ativan during last inpatient stay and is fixated on adderall script. Discussed that I would not prescribe this, as it is a controlled substance and he has been using illicit substances and off suboxone (says he was unable to obtain his script). Pt is agitated and signed 3 day notice, does not want med changes. 05/20/21: Pt does not want med changes. Continues to request adderall script. Has limited insight/ judgment, as he has hx of chronically relapsing. 05/21/21: Pt is minimally engaging in treatment. I contacted pt's suboxone prescriber, however I am waiting to hear back, as I reviewed masspat and it appears he had a 7 day script sent on 05/03/21 and a 10 day script sent on 05/11/21, so may have only had one day without it, however pt reports he went 3 days without it. 05/22/21: No change in medications. Plan: Monitor response to medications. Monitor for safety in the milieu. Discharge on stabilization. Patient seen. Chart reviewed. Discussed with team. Obtain collateral contact info as needed I spent minutes with the patient and/or on the patient floor today, greater than?50% of which was spent counseling/coordinating care. Reason for contiued inpatient stay Substantial Risk for: harm to self and inability to function
[2021-05-22] MEDS: traZODone HCL 100 MG TABLET PO (21:44)
[2021-05-22 21:48] VITALS: BP 112/56; PULSE 83; RESP 16; TEMP 36.8; O2SAT 95
[2021-05-23] MEDS: Sertraline HCL 50 MG TABLET 150 MG PO (09:26)
[2021-05-23] MEDS: Nicotine 21 MG PATCH.TD24 TRANSDERMA (09:29)
[2021-05-23] MEDS: Paliperidone ER 9 MG TAB.ER.24 PO (09:29)
[2021-05-23] MEDS: Buprenorphine/Naloxone 8/2 mg FILM 2 FILM SUBLINGUAL (09:36)
[2021-05-23 09:41] VITALS: BP 106/65; PULSE 70; RESP 18; O2SAT 100
--- NOTE | 2021-05-23 12:10 | P.PNPSI_ITS ---
Subjective Subjective Date of Service: 05/23/21 Reason For Visit: SI Interim History: Patient seen and discussed with team. Patient reports he is fine . He was isolative. He is generally irritable and flat. He denies any SI. No groups. Pt lives on his own but identifies having support at his [place] [facility], has referral for a control and recovery special tactics, and has a therapist (only spoke with her over the phone). He denies having questions or concerns. His 3 day is up on Monday. Discussed that no controlled substances would be sent on discharge. In the milieu, patient is safe and appropriate in behavior. Denies SI/SIB/HI upon inquiry. Denies irritability or assaultive ideation. Says he feels safe. Review of Systems Review of Systems CVS: No c/o chest pain, palpitations, no SOB INSPECTOR FILTERS: No c/o dizziness, headache GI: No c/o Nausea, Vomiting, diarrhea, constipation or heartburn Yes all other systems are reviewed and are negative Mental Status Exam Mental Status Exam Narrative: A&O. Sitting in bed, casual dress. Okay eye contact, attentive. No Tics or Tremors. No abnormal involuntary movements. Agitated, guarded, difficult to engage. Non-pressured speech, spontaneous with regular rate and rhythm, normal v olume and prosody. No prolonged speech latency or dysarthria. Mood is alright, affect is constricted. Denies SI/SIB/HI upon inquiry. Thoughts are perseverative on adderall. Insight/ Judgment is poor. Diagnostics Vital Signs (24Hr): Vital Signs - 24 hr 05/22/21 21:48 05/23/21 09:41 Temperature 98.2 F Pulse Rate 83 70 Respiratory Rate 16 18 Blood Pressure 112/56 L 106/65 Pulse Oximetry 95 100 BMI result Body Mass Index 29.0 Labs Results: 05/19/21 12:37 05/19/21 09:15 Medications Medications Current Medications Acetaminophen (Acetaminophen 325 Mg Tablet) 650 mg PO Q6H PRN PRN Reason: Headache/Pain Mild Scale (1-3) Al Hydroxide/Mg Hydroxide (Magnesium Hydrox/Alum Hydrox 30 Ml Oral.Susp) 30 ml PO Q6H PRN PRN Reason: Heartburn/Nausea Buprenorphine/Naloxone (Buprenorphine/Naloxone 8/2 Mg Film) 2 film SUBLINGUAL DAILY [facility] Last Admin: 05/23/21 09:36 Dose: 2 film Documented by: Clonidine HCl (Clonidine Hcl 0.1 Mg Tablet) 0.1 mg PO BID PRN; Protocol PRN Reason: anxiety Hydroxyzine HCl (Hydroxyzine Hcl 25 Mg Tablet) 25 mg PO Q6H PRN PRN Reason: Anxiety Last Admin: 05/20/21 22:09 Dose: 25 mg Documented by: Lorazepam (Lorazepam 1 Mg Tablet) 1 mg PO DAILY PRN PRN Reason: panic attack(s) Last Admin: 05/22/21 11:17 Dose: 1 mg Documented by: Magnesium Hydroxide (Milk Of Magnesia 30 Ml Oral.Susp) 30 ml PO DAILY PRN PRN Reason: Constipation Naloxone HCl (Naloxone Hcl Nasal 4 Mg [place]) 4 mg NOSTRILALT Q2M PRN PRN Reason: opioid overdose Nicotine (Nicotine 21 Mg Patch.Td24) 21 mg TRANSDERMA DAILY [facility] Last Admin: 05/23/21 09:29 Dose: 21 mg Documented by: Nicotine Polacrilex (Nicotine Polacrilex 2 Mg Gum) 2 mg BUCCAL Q2H PRN PRN Reason: Nicotine Cravings Paliperidone (Paliperidone Er 9 Mg Tab.Er.24) 9 mg PO DAILY [facility] Last Admin: 05/23/21 09:29 Dose: 9 mg Documented by: Prazosin HCl (Prazosin Hcl 1 Mg Capsule) 1 mg PO BEDTIME [facility]IS[facility]; Protocol Last Admin: 05/22/21 21:45 Dose: Not Given Documented by: Sertraline HCl (Sertraline Hcl 50 Mg Tablet) 150 mg PO DAILY [facility] Last Admin: 05/23/21 09:26 Dose: 150 mg Documented by: Trazodone HCl (Trazodone Hcl 100 Mg Tablet) 100 mg PO BEDTIME [facility] Last Admin: 05/22/21 21:44 Dose: 100 mg Documented by: Trazodone HCl (Trazodone Hcl 50 Mg Tablet) 50 mg PO BEDTIME PRN PRN Reason: Insomnia Allergies Allergies Allergy/AdvReac Type Severity Reaction Status Date / Time tomato [Tomato] Allergy Severe DIFFICULTY Verified 04/30/21 10:28 BREATHING, swelling of face and throat divalproex sodium Allergy Mild SEIZURES Verified 04/30/21 10:28 [From Depakote] olanzapine [From Zyprexa] Allergy Mild NIPPLES Verified 04/30/21 10:28 LEAK risperidone [From Risperdal] Allergy Mild UNKNOWN Verified 04/30/21 10:28 quetiapine [From SEROQUEL] Allergy Unknown HEART Verified 04/30/21 10:28 PALPITATIONS lithium [[place]] AdvReac Mild STOMACH Verified 04/30/21 10:28 PAIN aripiprazole [From ABILIFY] AdvReac Unknown DYSTONIA Verified 04/30/21 10:28 Assessment & Plan Assessment & Plan (1) Cocaine use disorder: Status: Acute Code(s): F14.10 - Cocaine abuse, uncomplicated (2) Schizoaffective disorder, depressive type: Status: Acute Code(s): F25.1 - Schizoaffective disorder, depressive type (3) Opioid use disorder, severe, dependence: Status: Acute Code(s): F11.20 - Opioid dependence, uncomplicated (4) Post traumatic stress disorder (PTSD): Status: Acute Code(s): F43.10 - Post-traumatic stress disorder, unspecified Plan Jaswinder is a 40 y.o. Male who carries a dx of schizoaffective disorder, depressed type, PTSD, opioid use disorder, and cocaine use disorder. Per VENANCIO jang pt reported that his friends brought him [place] [facility] on 05/18/21 due to feeling SI and hearing command voices tell him to kill himself. Pt was recently discharged from [facility] 04/21/21-04/29/21 due to worsening depression and relapse on heroin. He was prescribed adderall and ativan during last inpatient stay and is fixated on adderall script. Discussed that I would not prescribe this, as it is a controlled substance and he has been using illicit substances and off suboxone (says he was unable to obtain his script). Pt is agitated and signed 3 day notice, does not want med changes. 05/20/21: Pt does not want med changes. Continues to request adderall script. Has limited insight/ judgment, as he has hx of chronically relapsing. 05/21/21: Pt is minimally engaging in treatment. I contacted pt's suboxone prescriber, however I am waiting to hear back, as I reviewed masspat and it appears he had a 7 day script sent on 05/03/21 and a 10 day script sent on 05/01, so may have only had one day without it, however pt reports he went 3 days without it. 05/22/21: No change in medications. Plan: Monitor response to medications. Monitor for safety in the milieu. Discharge on stabilization. Patient seen. Chart reviewed. Discussed with team. Obtain collateral contact info as needed I spent minutes with the patient and/or on the patient floor today, greater than?50% of which was spent counseling/coordinating care. Patient educated on: medication risk/benefits Reason for contiued inpatient stay Substantial Risk for: harm to self
[2021-05-23] MEDS: LORazepam 1 MG TABLET PO (13:36)
[2021-05-23 18:00] VITALS: BP 109/63; PULSE 72; RESP 16; TEMP 36.4; O2SAT 96
[2021-05-23] MEDS: traZODone HCL 100 MG TABLET PO (21:05)
[2021-05-24] MEDS: Paliperidone ER 9 MG TAB.ER.24 PO (08:37)
[2021-05-24] MEDS: Nicotine 21 MG PATCH.TD24 TRANSDERMA (08:37)
[2021-05-24] MEDS: Sertraline HCL 50 MG TABLET 150 MG PO (08:37)
[2021-05-24] MEDS: Buprenorphine/Naloxone 8/2 mg FILM 2 FILM SUBLINGUAL (08:37)
[2021-05-24 09:00] VITALS: BP 107/74; PULSE 106; RESP 14; TEMP 36.2; O2SAT 98
--- NOTE | 2021-05-24 09:59 | PM.DS ---
DS: Providers Provider Date of Service: 05/24/21 <Liz Yanez NP - Last Filed: 05/27/21 23:16> Date of admission: 05/19/21 10:55 <Liz Yanez NP - Last Filed: 05/27/21 23:16> Date of discharge: 05/24/21 <Liz Yanez NP - Last Filed: 05/27/21 23:16> Primary care physician: Jefry Robbins MD <Liz Yanez NP - Last Filed: 05/27/21 23:16> Admitting clinician: Liz Yanez <Liz Yanez NP - Last Filed: 05/27/21 23:16> Attending physician on admission: Redd Sloan <Liz Yanez NP - Last Filed: 05/27/21 23:16> Attending physician on discharge: Redd Sloan <Liz Yanez NP - Last Filed: 05/27/21 23:16> Discharging clinician: Liz Yanez <Liz Yanez NP - Last Filed: 05/27/21 23:16> DS: Diagnosis Discharge Diagnosis (1) Schizoaffective disorder, depressive type: (2) Cocaine use disorder: (3) Opioid use disorder, severe, dependence: (4) Post traumatic stress disorder (PTSD): DS: Summary Hospital Course Hospital Course: Pt was recently discharged from [facility] 04/21/21-04/29/21 due to worsening depression and relapse on heroin. He was re-started on home meds of invega and zoloft, which was titrated up to 150 mg. He was started on prazosin for nightmares. Pt was using methadone and then was successfully transitioned to Suboxone. During this stay pt was restarted on Adderall with the aim that it might help prevent relapse. Pt denied that AH have ever fully resolved on medication and stated invega helped more with paranoid thoughts. Pt was also discharged on ativan 1 mg daily PRN for panic attacks, also with the aim that this would prevent relapse.? Per Edwige, pt previously prescribed ativan 08/2020 by OP provider at [facility] and adderall 20 mg 06/2020 by psychiatrist at [facility].? I evaluated the pt this evening and upon interview he asks about his adderall script. Discussed that I would not prescribe this, as he has relapsed and it has abuse potential. Pt reports his adderall already works and he has felt ?scattered all day long.? Discussed that pt took a dose this morning, however he insists that he felt scattered since he did not have an afternoon dose. Pt states he relapsed on heroin because his suboxone prescriber didnt call in the prescription and this ?left me sick for two days.? When I did not re-start adderall, pt states ?Im done talking, goodbye.? He then signed a 3 day notice. Past Psychiatric History: Past meds: allergies to seroquel, abilify, Zyprexa, Depakote, [place]. Other trials include Risperal (). Was on ativan 1 mg TID -Has OP services at [facility] (had referrals placed during last inpatient stay at [facility] but has not met with provider yet). Psych provider is Cassandra Rangel.? -Hx of OP services at [facility] and [facility]. -Hx of multiple inpatient stays, last at [facility] M[facility] 04/20/21, 08/2020, 03/2020, 12/2019, 11/2019, 10/2019 for psychosis, paranoia, command AH to harm self, SI, depression. Hx of relapsing, med non-adherence, and not following up with providers upon discharge. -Per chart, hx of suicide attempts? -Hx of [facility] admissions Over the course of hospitalization, pt continued to request restarting his adderall prescription and did not want other medication changes. He declined offer for meeting with recovery services or finance specialist and stated he plans to follow up with assistant men's lacrosse coach, suboxone clinic, and OP psych providers at [facility]. He denied withdrawal sx. He denied mood or behavioral concerns and stated his mood was stable, behavior safe, and sleep improved for discharge. 05/20/21: Pt does not want med changes. Continues to request adderall script. Has limited insight/ judgment, as he has hx of chronically relapsing. 05/21/21: Pt is minimally engaging in treatment. I contacted pt's suboxone prescriber, however I am waiting to hear back, as I reviewed masspat and it appears he had a 7 day script sent on 05/03/21 and a 10 day script sent on 05/11/21, so may have only had one day without it, however pt reports he went 3 days without it. 05/22/21: No change in medications. 05/23/21: no changes in medications. <Liz Yanez NP - Last Filed: 05/27/21 23:16> Time Spent with Patient Time attestation: Total time spent providing and/or coordinating discharge services: <Liz Yanez NP - Last Filed: 05/27/21 23:16> Discharge coordination time: Greater than 30 minutes <Liz Yanez NP - Last Filed: 05/27/21 23:16> Quality: Stroke Does the patient have a stroke diagnosis?: No <Liz Yanez NP - Last Filed: 05/27/21 23:16> Physical Exam Vital Signs: Vital Signs: Last Vital Signs Temp 97.6 F 05/23/21 18:00 Pulse 72 05/23/21 18:00 Resp 16 05/23/21 18:00 BP 109/63 05/23/21 18:00 Pulse Ox 96 05/23/21 18:00 BMI result Body Mass Index 29.0 <Liz Yanez NP - Last Filed: 05/27/21 23:16> Discharge Plan Discharge Anticipated Discharge Date/Time: 05/24/21 11:00 <Liz Yanez NP - Last Filed: 05/27/21 23:16> Patient Disposition: Home, Self-Care <Liz Yanez NP - Last Filed: 05/27/21 23:16> Discharge Diagnosis: Opioid Use Disorder, Cocaine use disorder, schizoaffective disorder, depressive type. <Liz Yanez NP - Last Filed: 05/27/21 23:16> Referrals: Cassandra Cardenas (psychiatrist) [Other] - 05/26/21 8:30 am (Telehealth appointment) Cassandra Cardenas (psychiatrist) [Other] - 06/25/21 9:00 am (Telehealth appointment) Natalia Aponte (therapist) [Other] - 05/27/21 2:00 pm () [facility] [Other] - 05/24/21 11:00 am [facility] [Physician] - 1 Day (May use walk in clinic as needed) <Liz Yanez NP - Last Filed: 05/27/21 23:16> Discharge Medications: New nicotine 21 mg/24 hr Patch 24 Hour 21 mg transdermal DAILY Qty: 28 0RF clonidine HCl 0.1 mg Tablet 0.1 mg PO BID PRN (Reason: anxiety) 14 Days Qty: 28 0RF Protocol: Hold for SBP< HOLD for SBP < : 90 prazosin 1 mg Capsule 1 mg PO BEDTIME Qty: 14 0RF Protocol: Hold for SBP< HOLD for SBP < : 90 naloxone [Narcan] 4 mg/actuation [place],Non-Aerosol 4 mg intranasal (ALT) Q2M PRN (Reason: opioid overdose) Qty: 2 0RF paliperidone [Invega] 9 mg Tablet Extended Release 24 Hr 9 mg PO DAILY Qty: 14 0RF sertraline 50 mg Tablet 150 mg PO DAILY Qty: 14 0RF trazodone 100 mg Tablet 100 mg PO BEDTIME Qty: 14 0RF nicotine 14 mg/24 hr patch 24 hour 1 patch transdermal DAILY Qty: 28 0RF Continued clonidine HCl 0.1 mg Tablet 0.1 mg PO BID PRN (Reason: anxiety) 30 Days Qty: 60 0RF Protocol: Hold for SBP< HOLD for SBP < : 90 prazosin 1 mg Capsule 1 mg PO BEDTIME 30 Days Qty: 30 0RF Protocol: Hold for SBP< HOLD for SBP < : 90 paliperidone [Invega] 9 mg Tablet Extended Release 24 Hr 9 mg PO DAILY 30 Days Qty: 30 0RF sertraline 50 mg Tablet 150 mg PO DAILY 30 Days Qty: 90 0RF trazodone 100 mg tablet 100 mg PO BEDTIME 0RF naloxone [Narcan] 4 mg/actuation spray,non-aerosol 4 mg intranasal Q2M PRN (Reason: opioid overdose) Qty: 2 0RF Rx Instructions: spray 1 dose into ONE nostril; alternate nostrils w each dose until help arrives Discontinued nicotine 21 mg/24 hr Patch 24 Hour 21 mg transdermal DAILY PRN (Reason: smoking cessation) 28 Days Qty: 28 0RF dextroamphetamine-amphetamine [Adderall XR] 20 mg capsule,extended release 24hr 20 mg PO BID 30 Days Qty: 60 0RF Rx Instructions: take 1 capsule 8am and 1 capsule at 1pm lorazepam 1 mg Tablet 1 mg PO DAILY PRN (Reason: panic attack(s)) 30 Days Qty: 30 0RF No Action buprenorphine-naloxone [Suboxone] 8-2 mg film 2 film sublingual DAILY 10 Days Qty: 20 0RF Rx Instructions: place 1 strip/tab under (each) side of tongue; JACLYN # [id number] Sublocade 300 mg/1.5 mL solution, extended rel syringe 300 mg subcut ONCE 30 Days Qty: 1.5 1RF <Liz Yanez NP - Last Filed: 05/27/21 23:16> Discharge Orders: Discharge Order (Routine); Ordered 05/24/21 Ordered By: Liz Yanez <Liz Yanez NP - Last Filed: 05/27/21 23:16> Diet: advance to usual diet <Liz Yanez NP - Last Filed: 05/27/21 23:16> Activity on Discharge: As tolerated <Liz Yanez NP - Last Filed: 05/27/21 23:16> Stand Alone Forms: Patient Portal Discharge page, Community Support <Liz Yanez NP - Last Filed: 05/27/21 23:16> Care Plan Goals: Maintain mood stability and safe behaviors. Take medications as prescribed and follow up with outpatient psych providers for medication management and individual therapy. Practice therapeutic coping skills and distress tolerance. Maintain sobriety. <Liz Yanez NP - Last Filed: 05/27/21 23:16> Health Concerns: Mood stability and behaviors Sobriety <Liz Yanez NP - Last Filed: 05/27/21 23:16> Plan of Treatment: Follow up with PCP, suboxone clinic, assistant men's lacrosse coach, and outpatient psych providers regarding above concerns. Take medication as prescribed. <Liz Yanez NP - Last Filed: 05/27/21 23:16> Assessment: Patient denies suicidal ideation, self harm urges, assaultive/homicidal ideation at the time of discharge. No imminent safety concerns. He is found to be fully oriented and goal directed. <Liz Yanez NP - Last Filed: 05/27/21 23:16> Patient Instructions: Naloxone (Into the nose), Opioid Use Disorder (DC) <Liz Yanez NP - Last Filed: 05/27/21 23:16> Discharge Date/Time: 05/24/21 11:00 <Liz Yanez NP - Last Filed: 05/27/21 23:16>
[2021-05-24] MEDS: Naloxone HCl Nasal 4 MG SPRAY NOSTRILALT (10:16)
== END 2021-05-24 11:00 | disposition home or self-care (01) | DRG 750 ==
LOC: HO.ED 05-19 00:03 → HO.PADLT16 05-19 11:00
PROVIDERS: Nurse Practitioner Family; Physician Assistant; Social Worker; Admitting Provider Psychiatry & Neurology Psychiatry; Emergency Provider Internal Medicine; PCP Family Medicine; Visit Provider Psychiatry & Neurology Psychiatry
DX: F25.1 Schizoaffective disorder, depressive type (principal); R45.851 Suicidal ideations; F43.10 Post-traumatic stress disorder, unspecified; F11.20 Opioid dependence, uncomplicated; F14.10 Cocaine abuse, uncomplicated; F17.210 Nicotine dependence, cigarettes, uncomplicated; Z20.822 Contact with and (suspected) exposure to COVID-19; Z79.899 Other long term (current) drug therapy
CPT/HCPCS: 36415; 80053; 80061; 80307; 82607; 82746; 83036; 84443; 85025; 87635; 93005; 99285

== ENCOUNTER → 2021-05-24 11:09 | Outpatient (BNVA) | payer OTHER, SELFPAY | PROVIDERS: Visit Provider Internal Medicine | DX: Z51.81 Encounter for therapeutic drug level monitoring (principal); F11.20 Opioid dependence, uncomplicated | CPT/HCPCS: 80305; 99211 ==

== ENCOUNTER → 2021-06-01 11:28 | Outpatient (BNVA) | payer OTHER, SELFPAY | PROVIDERS: Visit Provider Internal Medicine | DX: Z51.81 Encounter for therapeutic drug level monitoring (principal); F11.20 Opioid dependence, uncomplicated | CPT/HCPCS: 80305; 99211 ==

== ENCOUNTER → 2021-06-09 10:36 | Outpatient (BNVA) | payer OTHER, SELFPAY | PROVIDERS: Visit Provider Internal Medicine | DX: Z51.81 Encounter for therapeutic drug level monitoring (principal); Z88.8 Allergy status to other drugs, medicaments and biological substances; Z91.018 Allergy to other foods | CPT/HCPCS: 80305 ==

== ENCOUNTER → 2021-06-15 14:42 | Outpatient (BNVA) | payer OTHER, SELFPAY | PROVIDERS: Visit Provider Internal Medicine | DX: F11.20 Opioid dependence, uncomplicated (principal); I10 Essential (primary) hypertension; F17.210 Nicotine dependence, cigarettes, uncomplicated; Z88.8 Allergy status to other drugs, medicaments and biological substances; Z91.018 Allergy to other foods; Z51.81 Encounter for therapeutic drug level monitoring | CPT/HCPCS: 80305; 96372; 99212; Q9992 ==

== ENCOUNTER → 2021-07-13 14:37 | Outpatient (BNVA) | payer OTHER, SELFPAY | PROVIDERS: Visit Provider Internal Medicine | DX: F11.20 Opioid dependence, uncomplicated (principal) | CPT/HCPCS: 80305; 96372; 99212 ==

== ENCOUNTER → 2021-08-10 14:19 | Outpatient (BNVA) | payer OTHER, SELFPAY | PROVIDERS: Visit Provider Internal Medicine | DX: Z51.81 Encounter for therapeutic drug level monitoring (principal); F11.20 Opioid dependence, uncomplicated | CPT/HCPCS: 80305; 99212 ==

== ENCOUNTER 2021-08-18 22:27 | Inpatient (IN) | payer OTHER, SELFPAY ==
[2021-08-18 22:51] VITALS: BMI 30.9
--- NOTE | 2021-08-18 23:46 | PC.ADMIT ---
Pt is a 41y/o male admitted from [facility] for endorsing SI and AVH. Pt is alert and oriented X3, VSS, Covid negative, Tox screen positive for marijuana. Pt has been agitated and not giving out information during assessment. Pt presents with irritable mood and flat affect. Pt is uncooperative and giving out scanty information. Speech is regular with normal rhythm and tone. Pt states he wants Dr. Dunne to be his provider. He requested for a three but did not complete one tonight. Pt shows disappointment for [facility] transferring him here, saying he was not happy the last time he was here in April. Admission orders obtained.
[2021-08-19] MEDS: Sertraline HCL 50 MG TABLET 150 MG PO (09:04)
[2021-08-19 09:55] VITALS: BP 138/84; PULSE 80; TEMP 37.1
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
[2021-08-19] MEDS: Nicotine 14 MG PATCH.TD24 TRANSDERMA (11:14)
[2021-08-19] MEDS: Buprenorphine/Naloxone 8/2 mg FILM 1 FILM SUBLINGUAL ×2 (11:15→14:16)
[2021-08-19] MEDS: Paliperidone ER 3 MG TAB.ER.24 PO ×2 (11:15→20:16)
[2021-08-19] MEDS: Dextroamphetamine/Amphetamine XR 10 MG CAP.ER.24H 20 MG PO ×2 (11:15→14:16)
--- NOTE | 2021-08-19 12:56 | P.CONHOSP_ITS ---
History of Present Illness Data of Consult Service Date: 08/19/21 Primary Care Provider: Unknown Physician HPI Reason for consult: Medical H&P 41 yo M admitted to . Medical consult requested for routine medical H&P per protocol. Patient is seen and examined in the exam room. They deny any medical complaints at this time. He reports a history of Hep C for which he has outpatient f/u at the [facility] Review of Systems Review of Systems: negative except HPI PMFSH Medical History Cocaine use disorder Cocaine use disorder HTN (hypertension) OCD (obsessive compulsive disorder) Opioid use disorder, severe, dependence Panic anxiety syndrome Post traumatic stress disorder (PTSD) Schizoaffective disorder, depressive type Pertinent family history: Denies any FH Surgical History No pertinent past surgical history Social History Household Members: None Household Members Other:: lives alone Housing: House Do you presently have visiting nurse or other home services: No Unable to assess alcohol history related to: Unknown Alcohol intake: never Patient Tobacco Use Status: Current everyday Tobacco user Tobacco use type: Cigarette Cigarette Packs Per Day: 1 Cigarettes Per Day: 20.0 Years Smoked: 30 Smoked in Last 30 Days: Yes e-Cigarette/Vaping Use: Currently Using Patient Interested in Nicotine Replacement: Yes Patient Given Instructions on How to Stop Smoking: Yes Date Education Initiated: 08/18/21 Second Hand Smoke Exposure: No Use of substances other than those prescribed or required for medical reasons: Yes Substance Use Type: Marijuana and Opiates Substance Use Frequency: Daily Last Used Substance: Days (ago) Currently Displaying Signs/Symptoms of Drug Intoxication Withdrawal: No Any prior treatment program specific to substance use: No Have you been hit, kicked, punched, or otherwise hurt by someone within the past year? If so, by whom?: No Do you feel safe in your current relationship?: No Current Relationship Is there a partner from a previous relationship who is making you feel unsafe now?: No Are you made to feel afraid or neglected: No Spiritual Healthcare Practices: N/A Nondenominational Healthcare Practices: N/A Cultural Healthcare Practices: N/A Advance Directives: No Advance Directives Information Provided: Yes Advance Directives on File: No Do you have thoughts of harming others: None Do you have a plan to hurt others: No Plan Recently lost weight without trying: No Nutrition Risks: No Nutritional Risk Poor oral hygiene: No service: No Sexual orientation: Straight/Heterosexual Meds Allergies Allergy/AdvReac Type Severity Reaction Status Date / Time tomato [Tomato] Allergy Severe DIFFICULTY Verified 08/10/21 15:45 BREATHING, swelling of face and throat divalproex sodium Allergy Mild SEIZURES Verified 08/10/21 15:45 [From Depakote] olanzapine [From Zyprexa] Allergy Mild NIPPLES Verified 08/10/21 15:45 LEAK risperidone [From Risperdal] Allergy Mild UNKNOWN Verified 08/10/21 15:45 quetiapine [From SEROQUEL] Allergy Unknown HEART Verified 08/10/21 15:45 PALPITATIONS lithium [[place]] AdvReac Mild STOMACH Verified 08/10/21 15:45 PAIN aripiprazole [From ABILIFY] AdvReac Unknown DYSTONIA Verified 08/10/21 15:45 Active Medications: Current Medications Acetaminophen (Acetaminophen 325 Mg Tablet) 650 mg PO Q6H PRN PRN Reason: Headache/Pain Mild Scale (1-3) Al Hydroxide/Mg Hydroxide (Magnesium Hydrox/Alum Hydrox 30 Ml Oral.Susp) 30 ml PO Q6H PRN PRN Reason: Heartburn/Nausea Amphetamine/Dextroamphetamine (Dextroamphetamine/Amphetamine Xr 10 Mg Cap.Er.24h) 20 mg PO BID@0830,1430 [facility] Buprenorphine/Naloxone (Buprenorphine/Naloxone 8/2 Mg Film) 2 film SUBLINGUAL DAILY [facility] Buprenorphine/Naloxone (Buprenorphine/Naloxone 8/2 Mg Film) 1 film SUBLINGUAL ONCE ONE Stop: 08/19/21 14:32 Clonidine HCl (Clonidine Hcl 0.1 Mg Tablet) 0.1 mg PO TID PRN; Protocol PRN Reason: anxiety Lorazepam (Lorazepam 1 Mg Tablet) 1 mg PO TID PRN PRN Reason: Anxiety Magnesium Hydroxide (Milk Of Magnesia 30 Ml Oral.Susp) 30 ml PO DAILY PRN PRN Reason: Constipation Nicotine (Nicotine 14 Mg Patch.Td24) 14 mg TRANSDERMA DAILY [facility] Last Admin: 08/19/21 11:14 Dose: 14 mg Documented by: Paliperidone (Paliperidone Er 3 Mg Tab.Er.24) 3 mg PO BEDTIME RISSA Stop: 08/19/21 23:55 Paliperidone (Paliperidone Er 9 Mg Tab.Er.24) 9 mg PO BEDTIME RISSA Prazosin HCl (Prazosin Hcl 1 Mg Capsule) 1 mg PO BEDTIME RISSA; Protocol Sertraline HCl (Sertraline Hcl 50 Mg Tablet) 150 mg PO DAILY RISSA Last Admin: 08/19/21 09:04 Dose: 150 mg Documented by: Trazodone HCl (Trazodone Hcl 50 Mg Tablet) 50 mg PO BEDTIME PRN PRN Reason: Insomnia Trazodone HCl (Trazodone Hcl 100 Mg Tablet) 100 mg PO BEDTIME RISSA Physical Exam Vital Signs and Narrative: Vital Signs: BMI result Body Mass Index 30.9 Const: Other: General - no acute distress, appears comfortable Cardiovascular - regular rate and rhythm, S1-S2 Lungs - normal respiratory effort, clear to auscultation bilaterally, no wheezing Abdomen - soft, nontender, no rebound or guarding Extremities - no edema bilaterally Neuro - awake and alert, no focal deficits; cn 2-12 in tact Assessment and Plan (1) Routine medical exam: Status: Acute Plan 41 yo M with a history of opiate dependence / hep c admitted to . Medical consultation sought for routine medical H&P. Patient has no active medical issues. He has been encouraged to f/u with his outpatient providers for treatment of Hep c. Patient has been counseled on age appropriate health maintenance as an outpatient. Continue care per primary team. Will sign off. Please re-consult if any issues arise.
[2021-08-19 18:59] VITALS: BP 133/87; PULSE 101; TEMP 36.9
[2021-08-19] MEDS: traZODone HCL 100 MG TABLET PO (20:16)
[2021-08-19] MEDS: Prazosin HCL 1 MG CAPSULE PO (20:16)
[2021-08-20] MEDS: LORazepam 1 MG TABLET PO (06:41)
[2021-08-20 08:30] VITALS: BP 121/86; PULSE 109; TEMP 36.4
[2021-08-20] MEDS: Buprenorphine/Naloxone 8/2 mg FILM 2 FILM SUBLINGUAL (08:36)
[2021-08-20] MEDS: Nicotine 14 MG PATCH.TD24 TRANSDERMA (08:36)
[2021-08-20] MEDS: Sertraline HCL 50 MG TABLET 150 MG PO (08:37)
[2021-08-20] MEDS: Dextroamphetamine/Amphetamine XR 10 MG CAP.ER.24H 20 MG PO ×2 (08:37→13:32)
[2021-08-20] MEDS: docosanoL 10 % Cream 2 GM TUBE 1 APPL TOPICAL (16:34)
[2021-08-20 22:50] VITALS: BP 119/73; PULSE 75; TEMP 36.3
[2021-08-20] MEDS: Prazosin HCL 1 MG CAPSULE PO (22:57)
[2021-08-20] MEDS: Paliperidone ER 9 MG TAB.ER.24 PO (22:57)
[2021-08-20] MEDS: traZODone HCL 100 MG TABLET PO (22:58)
--- NOTE | 2021-08-20 23:34 | HO.PSYCHPN ---
Subjective Subjective Date of Service: 08/20/21 Reason For Visit: F25, F11.20 Subjective Notes: Earl Warning and Conditional Voluntary Healthcare Proxy: No Guardianship: No Medical Problems Affecting Mental Status: No Interim History: Patient seen and discussed with team. Patient evaluated today and upon interview he reports his mood is good. Denies issues with sleep. Denies physical health concerns. Says the voices are the same. Says his racing thoughts are a little better, not as sporadic, but says he is still constantly thinking all day. Says his sx of anxiety and depression are both better. Denies SI. Says he feels safe. In the milieu, patient is safe in behavior, keeps to himself, poor eye contact. Medication Compliance: Yes Side effects from medications: No Attending Groups: No Review of Systems Acute medical concerns: No Medical Review of Systems: unchanged Mental Status Exam Mental Status Exam Narrative: Pt is alert and oriented; behavior is cooperative and calm; patient is not in distress; dressed in casual attire with baseball hat, earring and adequate hygiene; mood is described as good and affect blunted; minimal eye contact; Speech is normal rate, volume and prosody and not pressured; some psychomotor agitation present; thought process is organized and goal directed; Thought content is on tx, coping w/t AH; otherwise pertinent to relevant topics and without any delusional content, paranoid ideations or grandiosity; intermittent, passive SI; no HI.? Auditory hallucinations present.? Patients insight and judgment are impaired. Diagnostics Vital Signs (24Hr): Vital Signs - 24 hr 08/20/21 08:30 08/20/21 22:50 Temperature 97.6 F 97.4 F Pulse Rate 109 H 75 Blood Pressure 121/86 119/73 BMI result Body Mass Index 30.9 Medications Medications Current Medications Acetaminophen (Acetaminophen 325 Mg Tablet) 650 mg PO Q6H PRN PRN Reason: Headache/Pain Mild Scale (1-3) Al Hydroxide/Mg Hydroxide (Magnesium Hydrox/Alum Hydrox 30 Ml Oral.Susp) 30 ml PO Q6H PRN PRN Reason: Heartburn/Nausea Amphetamine/Dextroamphetamine (Dextroamphetamine/Amphetamine Xr 10 Mg Cap.Er.24h) 20 mg PO 0830,1300 [facility] Buprenorphine/Naloxone (Buprenorphine/Naloxone 8/2 Mg Film) 2 film SUBLINGUAL DAILY [facility] Last Admin: 08/20/21 08:36 Dose: 2 film Documented by: Clonidine HCl (Clonidine Hcl 0.1 Mg Tablet) 0.1 mg PO TID PRN; Protocol PRN Reason: anxiety Docosanol (Docosanol 10 % Cream 2 Gm Tube) 1 appl TOPICAL 5XD PRN; Protocol PRN Reason: cold sores Last Admin: 08/20/21 16:34 Dose: 1 appl Documented by: Lorazepam (Lorazepam 1 Mg Tablet) 1 mg PO TID PRN PRN Reason: Anxiety Last Admin: 08/20/21 06:41 Dose: 1 mg Documented by: Magnesium Hydroxide (Milk Of Magnesia 30 Ml Oral.Susp) 30 ml PO DAILY PRN PRN Reason: Constipation Nicotine (Nicotine 14 Mg Patch.Td24) 14 mg TRANSDERMA DAILY RIS[facility] Last Admin: 08/20/21 08:36 Dose: 14 mg Documented by: Paliperidone (Paliperidone Er 9 Mg Tab.Er.24) 9 mg PO BEDTIME RISSA Last Admin: 08/20/21 22:57 Dose: 9 mg Documented by: Prazosin HCl (Prazosin Hcl 1 Mg Capsule) 1 mg PO BEDTIME RISSA; Protocol Last Admin: 08/20/21 22:57 Dose: 1 mg Documented by: Sertraline HCl (Sertraline Hcl 50 Mg Tablet) 150 mg PO DAILY RISSA Last Admin: 08/20/21 08:37 Dose: 150 mg Documented by: Trazodone HCl (Trazodone Hcl 50 Mg Tablet) 50 mg PO BEDTIME PRN PRN Reason: Insomnia Trazodone HCl (Trazodone Hcl 100 Mg Tablet) 100 mg PO BEDTIME RISSA Last Admin: 08/20/21 22:58 Dose: 100 mg Documented by: Allergies Allergies Allergy/AdvReac Type Severity Reaction Status Date / Time tomato [Tomato] Allergy Severe DIFFICULTY Verified 08/10/21 15:45 BREATHING, swelling of face and throat divalproex sodium Allergy Mild SEIZURES Verified 08/10/21 15:45 [From Depakote] olanzapine [From Zyprexa] Allergy Mild NIPPLES Verified 08/10/21 15:45 LEAK risperidone [From Risperdal] Allergy Mild UNKNOWN Verified 08/10/21 15:45 quetiapine [From SEROQUEL] Allergy Unknown HEART Verified 08/10/21 15:45 PALPITATIONS lithium [[place]] AdvReac Mild STOMACH Verified 08/10/21 15:45 PAIN aripiprazole [From ABILIFY] AdvReac Unknown DYSTONIA Verified 08/10/21 15:45 Assessment & Plan Assessment & Plan (1) Schizoaffective disorder: Qualifiers: Schizoaffective disorder type: depressive Qualified Code(s): F25.1 - Schizoaffective disorder, depressive type Status: Chronic Code(s): F25.9 - Schizoaffective disorder, unspecified (2) ADHD: Status: Acute Code(s): F90.9 - Attention-deficit hyperactivity disorder, unspecified type (3) Opioid use disorder, severe, dependence: Status: Acute Code(s): F11.20 - Opioid dependence, uncomplicated Plan Patient is a 41-year-old male with history of schizoaffective disorder, PTSD, ADHD and substance use disorder on opioid maintenance medication who presents with worsening auditory hallucinations, racing mind and intermittent SI in the face of going off medications. -patient presents with auditory hallucinations and some intermittent, passive SI, racing thoughts which is typical presentation for him. Patient wants to restart his medications which senior copywriter reviewed and patient agreed. Denies any substance abuse and does not in withdrawal Plan: CV Q 15 minute checks Restart Home meds: Amphetamine/Dextroamphetamine 20 mg PO BID@0830,1430 [facility] Buprenorphine/Naloxone (Buprenorphine/Naloxone 8/2 Mg Film)? 2 film SUBLINGUAL DAILY [facility] Restart Sublicade when available Clonidine HCl 0.1 mg PO TID PRN Anxiety Lorazepam (Lorazepam 1 Mg Tablet)? 1 mg PO TID PRN Anxiety Nicotine (Nicotine 14 Mg Patch.Td24)? 14 mg TRANSDERMA DAILY [facility] Titrate Paliperidone to home dose of 9mg qhs. Prazosin HCl 1 mg PO BEDTIME SCHl Sertraline HCl (Sertraline Hcl 50 Mg Tablet)? 150 mg PO DAILY RIS[facility] Trazodone HCl (Trazodone Hcl 100 Mg Tablet)? 100 mg PO BEDTIME Will review labs from [facility]; will order labs as clinically indicated 08/20/21: Continue current tx I spent minutes with the patient and/or on the patient floor today, greater than?50% of which was spent counseling/coordinating care. Patient educated on: medication risk/benefits Reason for contiued inpatient stay Substantial Risk for: med/psych decompensation
[2021-08-21 06:00] VITALS: BP 107/69; PULSE 99; RESP 18; TEMP 36.1; O2SAT 97
--- NOTE | 2021-08-21 07:55 | HO.PSYCHPN ---
Subjective Subjective Date of Service: 08/21/21 Reason For Visit: F25, F11.20 Subjective Notes: Conditional Voluntary Healthcare Proxy: No Guardianship: No Interim History: Patient was seen and discussed in rounds today. Records and plans were reviewed. He has been doing better, has been brighter. Eating and sleeping adequately. He is med compliant. Denies any side effects. No complaints. No changes were made today Medication Compliance: Yes Side effects from medications: No Attending Groups: Intermittent Review of Systems Review of Systems Except for HPI Yes all other systems are reviewed and are negative Mental Status Exam Mental Status Exam Narrative: In today's visit he is alert, oriented and pleasant. Normal speech. Moderate eye contact. Affect is contained and constricted. No signs of psychosis. No delusions. No SI/HI. Cognitively intact. Judgment is intact Diagnostics Vital Signs (24Hr): Vital Signs - 24 hr 08/20/21 08:30 08/20/21 22:50 08/21/21 06:00 Temperature 97.6 F 97.4 F 96.9 F Pulse Rate 109 H 75 99 Respiratory Rate 18 Blood Pressure 121/86 119/73 107/69 Pulse Oximetry 97 BMI result Body Mass Index 30.9 Medications Medications Current Medications Acetaminophen (Acetaminophen 325 Mg Tablet) 650 mg PO Q6H PRN PRN Reason: Headache/Pain Mild Scale (1-3) Al Hydroxide/Mg Hydroxide (Magnesium Hydrox/Alum Hydrox 30 Ml Oral.Susp) 30 ml PO Q6H PRN PRN Reason: Heartburn/Nausea Amphetamine/Dextroamphetamine (Dextroamphetamine/Amphetamine Xr 10 Mg Cap.Er.24h) 20 mg PO 0830,1300 [facility] Buprenorphine/Naloxone (Buprenorphine/Naloxone 8/2 Mg Film) 2 film SUBLINGUAL DAILY [facility] Last Admin: 08/20/21 08:36 Dose: 2 film Documented by: Clonidine HCl (Clonidine Hcl 0.1 Mg Tablet) 0.1 mg PO TID PRN; Protocol PRN Reason: anxiety Docosanol (Docosanol 10 % Cream 2 Gm Tube) 1 appl TOPICAL 5XD PRN; Protocol PRN Reason: cold sores Last Admin: 08/20/21 16:34 Dose: 1 appl Documented by: Lorazepam (Lorazepam 1 Mg Tablet) 1 mg PO TID PRN PRN Reason: Anxiety Last Admin: 08/20/21 06:41 Dose: 1 mg Documented by: Magnesium Hydroxide (Milk Of Magnesia 30 Ml Oral.Susp) 30 ml PO DAILY PRN PRN Reason: Constipation Nicotine (Nicotine 14 Mg Patch.Td24) 14 mg TRANSDERMA DAILY [facility] Last Admin: 08/20/21 08:36 Dose: 14 mg Documented by: Paliperidone (Paliperidone Er 9 Mg Tab.Er.24) 9 mg PO BEDTIME RISSA Last Admin: 08/20/21 22:57 Dose: 9 mg Documented by: Prazosin HCl (Prazosin Hcl 1 Mg Capsule) 1 mg PO BEDTIME RISSA; Protocol Last Admin: 08/20/21 22:57 Dose: 1 mg Documented by: Sertraline HCl (Sertraline Hcl 50 Mg Tablet) 150 mg PO DAILY [facility] Last Admin: 08/20/21 08:37 Dose: 150 mg Documented by: Trazodone HCl (Trazodone Hcl 50 Mg Tablet) 50 mg PO BEDTIME PRN PRN Reason: Insomnia Trazodone HCl (Trazodone Hcl 100 Mg Tablet) 100 mg PO BEDTIME RISSA Last Admin: 08/20/21 22:58 Dose: 100 mg Documented by: Allergies Allergies Allergy/AdvReac Type Severity Reaction Status Date / Time tomato [Tomato] Allergy Severe DIFFICULTY Verified 08/10/21 15:45 BREATHING, swelling of face and throat divalproex sodium Allergy Mild SEIZURES Verified 08/10/21 15:45 [From Depakote] olanzapine [From Zyprexa] Allergy Mild NIPPLES Verified 08/10/21 15:45 LEAK risperidone [From Risperdal] Allergy Mild UNKNOWN Verified 08/10/21 15:45 quetiapine [From SEROQUEL] Allergy Unknown HEART Verified 08/10/21 15:45 PALPITATIONS lithium [[place]] AdvReac Mild STOMACH Verified 08/10/21 15:45 PAIN aripiprazole [From ABILIFY] AdvReac Unknown DYSTONIA Verified 08/10/21 15:45 Assessment & Plan Assessment & Plan (1) Schizoaffective disorder: Qualifiers: Schizoaffective disorder type: depressive Qualified Code(s): F25.1 - Schizoaffective disorder, depressive type Status: Chronic Code(s): F25.9 - Schizoaffective disorder, unspecified (2) ADHD: Status: Acute Code(s): F90.9 - Attention-deficit hyperactivity disorder, unspecified type (3) Opioid use disorder, severe, dependence: Status: Acute Code(s): F11.20 - Opioid dependence, uncomplicated Plan Patient is a 41-year-old male with history of schizoaffective disorder, PTSD, ADHD and substance use disorder on opioid maintenance medication who presents with worsening auditory hallucinations, racing mind and intermittent SI in the face of going off medications. -patient presents with auditory hallucinations and some intermittent, passive SI, racing thoughts which is typical presentation for him. Patient wants to restart his medications which television script writer reviewed and patient agreed. Denies any substance abuse and does not in withdrawal Plan: CV Q 15 minute checks Restart Home meds: Amphetamine/Dextroamphetamine 20 mg PO BID@0830,1430 [facility] Buprenorphine/Naloxone (Buprenorphine/Naloxone 8/2 Mg Film)? 2 film SUBLINGUAL DAILY [facility] Restart Sublicade when available Clonidine HCl 0.1 mg PO TID PRN Anxiety Lorazepam (Lorazepam 1 Mg Tablet)? 1 mg PO TID PRN Anxiety Nicotine (Nicotine 14 Mg Patch.Td24)? 14 mg TRANSDERMA DAILY RIS[facility] Titrate Paliperidone to home dose of 9mg qhs. Prazosin HCl 1 mg PO BEDTIME SCHl Sertraline HCl (Sertraline Hcl 50 Mg Tablet)? 150 mg PO DAILY RIS[facility] Trazodone HCl (Trazodone Hcl 100 Mg Tablet)? 100 mg PO BEDTIME Will review labs from [facility]; will order labs as clinically indicated 08/20/21: Continue current tx 08/21/2021 continue current regimen and plans I spent minutes with the patient and/or on the patient floor today, greater than?50% of which was spent counseling/coordinating care. Reason for contiued inpatient stay Substantial Risk for: other
[2021-08-21] MEDS: docosanoL 10 % Cream 2 GM TUBE 1 APPL TOPICAL (08:13)
[2021-08-21] MEDS: Sertraline HCL 50 MG TABLET 150 MG PO (08:14)
[2021-08-21] MEDS: Nicotine 14 MG PATCH.TD24 TRANSDERMA (08:14)
[2021-08-21] MEDS: Dextroamphetamine/Amphetamine XR 10 MG CAP.ER.24H 20 MG PO ×2 (08:14→12:14)
[2021-08-21] MEDS: Buprenorphine/Naloxone 8/2 mg FILM 2 FILM SUBLINGUAL (08:14)
[2021-08-21 17:36] VITALS: BP 112/50; PULSE 77; RESP 18; TEMP 36.6; O2SAT 97
[2021-08-21] MEDS: LORazepam 1 MG TABLET PO (18:34)
[2021-08-21] MEDS: traZODone HCL 100 MG TABLET PO (20:16)
[2021-08-21] MEDS: Paliperidone ER 9 MG TAB.ER.24 PO (20:17)
[2021-08-21] MEDS: Prazosin HCL 1 MG CAPSULE PO (20:17)
[2021-08-22 06:00] VITALS: BP 110/62; PULSE 86; RESP 18; TEMP 36.4; O2SAT 96
--- NOTE | 2021-08-22 08:00 | HO.PSYCHPN ---
Subjective Subjective Date of Service: 08/22/21 Reason For Visit: F25, F11.20 Subjective Notes: Conditional Voluntary Healthcare Proxy: No Guardianship: No Medical Problems Affecting Mental Status: No Interim History: Patient was seen and discussed in rounds today. Records and plans were reviewed. He continues to be depressed and anxious with no SI. He is a little more future oriented. Eating and sleeping adequately. Some auditory hallucinations reported. Continues to be guarded. Eating and sleeping adequately. No changes were made today Medication Compliance: Yes Side effects from medications: No Attending Groups: Intermittent Mental Status Exam Mental Status Exam Narrative: In today's visit he is alert, oriented and pleasant. Normal speech. Moderate eye contact. Affect is contained and constricted. He does have some auditory hallucinations. delusions. No SI/HI. Cognitively intact. Judgment is intact Diagnostics Vital Signs (24Hr): Vital Signs - 24 hr 08/21/21 17:36 08/22/21 06:00 Temperature 97.9 F 97.6 F Pulse Rate 77 86 Respiratory Rate 18 18 Blood Pressure 112/50 L 110/62 Pulse Oximetry 97 96 BMI result Body Mass Index 30.9 Medications Medications Current Medications Acetaminophen (Acetaminophen 325 Mg Tablet) 650 mg PO Q6H PRN PRN Reason: Headache/Pain Mild Scale (1-3) Al Hydroxide/Mg Hydroxide (Magnesium Hydrox/Alum Hydrox 30 Ml Oral.Susp) 30 ml PO Q6H PRN PRN Reason: Heartburn/Nausea Amphetamine/Dextroamphetamine (Dextroamphetamine/Amphetamine Xr 10 Mg Cap.Er.24h) 20 mg PO 0830,1300 [facility] Last Admin: 08/21/21 12:14 Dose: 20 mg Documented by: Buprenorphine/Naloxone (Buprenorphine/Naloxone 8/2 Mg Film) 2 film SUBLINGUAL DAILY [facility] Last Admin: 08/21/21 08:14 Dose: 2 film Documented by: Clonidine HCl (Clonidine Hcl 0.1 Mg Tablet) 0.1 mg PO TID PRN; Protocol PRN Reason: anxiety Docosanol (Docosanol 10 % Cream 2 Gm Tube) 1 appl TOPICAL 5XD PRN; Protocol PRN Reason: cold sores Last Admin: 08/21/21 08:13 Dose: 1 appl Documented by: Lorazepam (Lorazepam 1 Mg Tablet) 1 mg PO TID PRN PRN Reason: Anxiety Last Admin: 08/21/21 18:34 Dose: 1 mg Documented by: Magnesium Hydroxide (Milk Of Magnesia 30 Ml Oral.Susp) 30 ml PO DAILY PRN PRN Reason: Constipation Nicotine (Nicotine 14 Mg Patch.Td24) 14 mg TRANSDERMA DAILY [facility] Last Admin: 08/21/21 08:14 Dose: 14 mg Documented by: Paliperidone (Paliperidone Er 9 Mg Tab.Er.24) 9 mg PO BEDTIME RIS[facility] Last Admin: 08/21/21 20:17 Dose: 9 mg Documented by: Prazosin HCl (Prazosin Hcl 1 Mg Capsule) 1 mg PO BEDTIME RISSA; Protocol Last Admin: 08/21/21 20:17 Dose: 1 mg Documented by: Sertraline HCl (Sertraline Hcl 50 Mg Tablet) 150 mg PO DAILY RISSA Last Admin: 08/21/21 08:14 Dose: 150 mg Documented by: Trazodone HCl (Trazodone Hcl 50 Mg Tablet) 50 mg PO BEDTIME PRN PRN Reason: Insomnia Trazodone HCl (Trazodone Hcl 100 Mg Tablet) 100 mg PO BEDTIME RISSA Last Admin: 08/21/21 20:16 Dose: 100 mg Documented by: Allergies Allergies Allergy/AdvReac Type Severity Reaction Status Date / Time tomato [Tomato] Allergy Severe DIFFICULTY Verified 08/10/21 15:45 BREATHING, swelling of face and throat divalproex sodium Allergy Mild SEIZURES Verified 08/10/21 15:45 [From Depakote] olanzapine [From Zyprexa] Allergy Mild NIPPLES Verified 08/10/21 15:45 LEAK risperidone [From Risperdal] Allergy Mild UNKNOWN Verified 08/10/21 15:45 quetiapine [From SEROQUEL] Allergy Unknown HEART Verified 08/10/21 15:45 PALPITATIONS lithium [[place]] AdvReac Mild STOMACH Verified 08/10/21 15:45 PAIN aripiprazole [From ABILIFY] AdvReac Unknown DYSTONIA Verified 08/10/21 15:45 Assessment & Plan Assessment & Plan (1) Schizoaffective disorder: Qualifiers: Schizoaffective disorder type: depressive Qualified Code(s): F25.1 - Schizoaffective disorder, depressive type Status: Chronic Code(s): F25.9 - Schizoaffective disorder, unspecified (2) ADHD: Status: Acute Code(s): F90.9 - Attention-deficit hyperactivity disorder, unspecified type (3) Opioid use disorder, severe, dependence: Status: Acute Code(s): F11.20 - Opioid dependence, uncomplicated Plan Patient is a 41-year-old male with history of schizoaffective disorder, PTSD, ADHD and substance use disorder on opioid maintenance medication who presents with worsening auditory hallucinations, racing mind and intermittent SI in the face of going off medications. -patient presents with auditory hallucinations and some intermittent, passive SI, racing thoughts which is typical presentation for him. Patient wants to restart his medications which functional tester typewriters reviewed and patient agreed. Denies any substance abuse and does not in withdrawal Plan: CV Q 15 minute checks Restart Home meds: Amphetamine/Dextroamphetamine 20 mg PO BID@0830,1430 [facility] Buprenorphine/Naloxone (Buprenorphine/Naloxone 8/2 Mg Film)? 2 film SUBLINGUAL DAILY [facility] Restart Sublicade when available Clonidine HCl 0.1 mg PO TID PRN Anxiety Lorazepam (Lorazepam 1 Mg Tablet)? 1 mg PO TID PRN Anxiety Nicotine (Nicotine 14 Mg Patch.Td24)? 14 mg TRANSDERMA DAILY [facility] Titrate Paliperidone to home dose of 9mg qhs. Prazosin HCl 1 mg PO BEDTIME SCHl Sertraline HCl (Sertraline Hcl 50 Mg Tablet)? 150 mg PO DAILY [facility] Trazodone HCl (Trazodone Hcl 100 Mg Tablet)? 100 mg PO BEDTIME Will review labs from [facility]; will order labs as clinically indicated 08/20/21: Continue current tx 08/21/2021 continue current regimen and plans 08/22/2021: Continue current plans and regimen I spent minutes with the patient and/or on the patient floor today, greater than?50% of which was spent counseling/coordinating care. Reason for contiued inpatient stay Substantial Risk for: med/psych decompensation
[2021-08-22] MEDS: Sertraline HCL 50 MG TABLET 150 MG PO (08:08)
[2021-08-22] MEDS: Nicotine 14 MG PATCH.TD24 TRANSDERMA (08:09)
[2021-08-22] MEDS: Buprenorphine/Naloxone 8/2 mg FILM 2 FILM SUBLINGUAL (08:09)
[2021-08-22] MEDS: Dextroamphetamine/Amphetamine XR 10 MG CAP.ER.24H 20 MG PO ×2 (08:09→12:12)
[2021-08-22] MEDS: Prazosin HCL 1 MG CAPSULE PO (20:42)
[2021-08-22] MEDS: Paliperidone ER 9 MG TAB.ER.24 PO (20:42)
[2021-08-22] MEDS: traZODone HCL 100 MG TABLET PO (20:42)
[2021-08-22 20:58] VITALS: BP 107/68; PULSE 105; RESP 18; TEMP 36.3
[2021-08-23 06:00] VITALS: BP 94/68; PULSE 100; RESP 18; TEMP 37; O2SAT 98
[2021-08-23] MEDS: Nicotine 14 MG PATCH.TD24 TRANSDERMA (08:14)
[2021-08-23] MEDS: Sertraline HCL 50 MG TABLET 150 MG PO (08:14)
[2021-08-23] MEDS: Buprenorphine/Naloxone 8/2 mg FILM 2 FILM SUBLINGUAL (08:14)
[2021-08-23] MEDS: Dextroamphetamine/Amphetamine XR 10 MG CAP.ER.24H 20 MG PO ×2 (08:19→12:23)
--- NOTE | 2021-08-23 09:49 | HO.PSYCHPN ---
Subjective Subjective Date of Service: 08/23/21 Reason For Visit: F25, F11.20 Interim History: Patient reports he is doing well. He says depression is gone. He denies any SI at all. He does continue to have auditory hallucinations but says they are much lower usual and significantly lower than before. Patient says he is feeling good and ready for discharge. He sleeping and eating well and wants to get back on Sublicade which is been ordered. Mental Status Exam Mental Status Exam Narrative: Pt is alert and oriented; behavior is cooperative and calm; patient is not in distress; dressed in casual attire, earring and adequate hygiene; mood is described as good and affect congruent, more naturally expressive; adequate eye contact; Speech is normal rate, volume and prosody and not pressured; no psychomotor agitation; thought process is organized and goal directed; Thought content is on tx, discharge and otherwise pertinent to relevant topics and without any delusional content, paranoid ideations or grandiosity; intermittent, no SI; no HI.? Mild Auditory hallucinations present, at baseline.? Patients insight and judgment are intact. Diagnostics Vital Signs (24Hr): Vital Signs - 24 hr 08/22/21 20:58 08/23/21 06:00 Temperature 97.3 F 98.6 F Pulse Rate 105 H 100 Respiratory Rate 18 18 Blood Pressure 107/68 94/68 Pulse Oximetry 98 BMI result Body Mass Index 30.9 Medications Medications Current Medications Acetaminophen (Acetaminophen 325 Mg Tablet) 650 mg PO Q6H PRN PRN Reason: Headache/Pain Mild Scale (1-3) Al Hydroxide/Mg Hydroxide (Magnesium Hydrox/Alum Hydrox 30 Ml Oral.Susp) 30 ml PO Q6H PRN PRN Reason: Heartburn/Nausea Amphetamine/Dextroamphetamine (Dextroamphetamine/Amphetamine Xr 10 Mg Cap.Er.24h) 20 mg PO 0830,1300 [facility] Last Admin: 08/23/21 08:19 Dose: 20 mg Documented by: Buprenorphine/Naloxone (Buprenorphine/Naloxone 8/2 Mg Film) 2 film SUBLINGUAL DAILY [facility] Last Admin: 08/23/21 08:14 Dose: 2 film Documented by: Clonidine HCl (Clonidine Hcl 0.1 Mg Tablet) 0.1 mg PO TID PRN; Protocol PRN Reason: anxiety Docosanol (Docosanol 10 % Cream 2 Gm Tube) 1 appl TOPICAL 5XD PRN; Protocol PRN Reason: cold sores Last Admin: 08/21/21 08:13 Dose: 1 appl Documented by: Lorazepam (Lorazepam 1 Mg Tablet) 1 mg PO TID PRN PRN Reason: Anxiety Last Admin: 08/21/21 18:34 Dose: 1 mg Documented by: Magnesium Hydroxide (Milk Of Magnesia 30 Ml Oral.Susp) 30 ml PO DAILY PRN PRN Reason: Constipation Nicotine (Nicotine 14 Mg Patch.Td24) 14 mg TRANSDERMA DAILY [facility] Last Admin: 08/23/21 08:14 Dose: 14 mg Documented by: Paliperidone (Paliperidone Er 9 Mg Tab.Er.24) 9 mg PO BEDTIME RISSA Last Admin: 08/22/21 20:42 Dose: 9 mg Documented by: Prazosin HCl (Prazosin Hcl 1 Mg Capsule) 1 mg PO BEDTIME RISSA; Protocol Last Admin: 08/22/21 20:42 Dose: 1 mg Documented by: Sertraline HCl (Sertraline Hcl 50 Mg Tablet) 150 mg PO DAILY RISSA Last Admin: 08/23/21 08:14 Dose: 150 mg Documented by: Trazodone HCl (Trazodone Hcl 50 Mg Tablet) 50 mg PO BEDTIME PRN PRN Reason: Insomnia Trazodone HCl (Trazodone Hcl 100 Mg Tablet) 100 mg PO BEDTIME RISSA Last Admin: 08/22/21 20:42 Dose: 100 mg Documented by: Allergies Allergies Allergy/AdvReac Type Severity Reaction Status Date / Time tomato [Tomato] Allergy Severe DIFFICULTY Verified 08/10/21 15:45 BREATHING, swelling of face and throat divalproex sodium Allergy Mild SEIZURES Verified 08/10/21 15:45 [From Depakote] olanzapine [From Zyprexa] Allergy Mild NIPPLES Verified 08/10/21 15:45 LEAK risperidone [From Risperdal] Allergy Mild UNKNOWN Verified 08/10/21 15:45 quetiapine [From SEROQUEL] Allergy Unknown HEART Verified 08/10/21 15:45 PALPITATIONS lithium [[place]] AdvReac Mild STOMACH Verified 08/10/21 15:45 PAIN aripiprazole [From ABILIFY] AdvReac Unknown DYSTONIA Verified 08/10/21 15:45 Assessment & Plan Assessment & Plan (1) Schizoaffective disorder: Qualifiers: Schizoaffective disorder type: depressive Qualified Code(s): F25.1 - Schizoaffective disorder, depressive type Status: Chronic Code(s): F25.9 - Schizoaffective disorder, unspecified (2) ADHD: Status: Acute Code(s): F90.9 - Attention-deficit hyperactivity disorder, unspecified type (3) Opioid use disorder, severe, dependence: Status: Acute Code(s): F11.20 - Opioid dependence, uncomplicated Plan Patient is a 41-year-old male with history of schizoaffective disorder, PTSD, ADHD and substance use disorder on opioid maintenance medication who presents with worsening auditory hallucinations, racing mind and intermittent SI in the face of going off medications. -patient presents with auditory hallucinations and some intermittent, passive SI, racing thoughts which is typical presentation for him. Patient wants to restart his medications which selling underwriter reviewed and patient agreed. Denies any substance abuse and does not in withdrawal 08/23 patient reports doing well, good mood, no SI, auditory hallucinations are minimal and mostly able to be ignored. He is eating and sleeping well. Patient would like to discharge tomorrow as his 3 day notice is due soon. Patient wants to get back on Sublicade which is ordered. Patient is not in imminent risk of harm to self or others and request for discharge honored Plan: Three day notice Q 15 minute checks Home meds: Amphetamine/Dextroamphetamine 20 mg PO BID@0830,1430 [facility] will DC Buprenorphine/Naloxone (Buprenorphine/Naloxone 8/2 Mg Film)? 2 film SUBLINGUAL DAILY [facility] Sublicade 100mg ordered Clonidine HCl 0.1 mg PO TID PRN Anxiety Lorazepam (Lorazepam 1 Mg Tablet)? 1 mg PO TID PRN Anxiety Nicotine (Nicotine 14 Mg Patch.Td24)? 14 mg TRANSDERMA DAILY RISSA Titrate Paliperidone to home dose of 9mg qhs. Prazosin HCl 1 mg PO BEDTIME SCHl Sertraline HCl (Sertraline Hcl 50 Mg Tablet)? 150 mg PO DAILY RISSA Trazodone HCl (Trazodone Hcl 100 Mg Tablet)? 100 mg PO BEDTIME Will review labs from [facility]; will order labs as clinically indicated 08/20/21: Continue current tx 08/21/2021 continue current regimen and plans 08/22/2021: Continue current plans and regimen I spent minutes with the patient and/or on the patient floor today, greater than?50% of which was spent counseling/coordinating care. Patient educated on: diagnosis and substance abuse Informed Consent: understands Reason for contiued inpatient stay Substantial Risk for: stable for discharge
--- NOTE | 2021-08-23 17:07 | P.PNPSI_ITS ---
Subjective Subjective Date of Service: 08/23/21 Reason For Visit: F25, F11.20 Interim History: pt reports he's doing well and in good mood; he denies any depression or any SI. Though AH remain, they are low and able to be ignored. Pt reports feeling ready for discharge tomorrow as 3 day is coming due. He feels stable, good on mediations and denies any side-effects. He's happy to know he'll get Sublicade before discharge. Diagnostics Vital Signs (24Hr): Vital Signs - 24 hr 08/22/21 20:58 08/23/21 06:00 Temperature 97.3 F 98.6 F Pulse Rate 105 H 100 Respiratory Rate 18 18 Blood Pressure 107/68 94/68 Pulse Oximetry 98 BMI result Body Mass Index 30.9 Medications Medications Current Medications Acetaminophen (Acetaminophen 325 Mg Tablet) 650 mg PO Q6H PRN PRN Reason: Headache/Pain Mild Scale (1-3) Al Hydroxide/Mg Hydroxide (Magnesium Hydrox/Alum Hydrox 30 Ml Oral.Susp) 30 ml PO Q6H PRN PRN Reason: Heartburn/Nausea Amphetamine/Dextroamphetamine (Dextroamphetamine/Amphetamine Xr 10 Mg Cap.Er.24h) 20 mg PO 0830,1300 [facility] Last Admin: 08/23/21 12:23 Dose: 20 mg Documented by: Buprenorphine/Naloxone (Buprenorphine/Naloxone 8/2 Mg Film) 2 film SUBLINGUAL DAILY [facility] Last Admin: 08/23/21 08:14 Dose: 2 film Documented by: Clonidine HCl (Clonidine Hcl 0.1 Mg Tablet) 0.1 mg PO TID PRN; Protocol PRN Reason: anxiety Docosanol (Docosanol 10 % Cream 2 Gm Tube) 1 appl TOPICAL 5XD PRN; Protocol PRN Reason: cold sores Last Admin: 08/21/21 08:13 Dose: 1 appl Documented by: Lorazepam (Lorazepam 1 Mg Tablet) 1 mg PO TID PRN PRN Reason: Anxiety Last Admin: 08/21/21 18:34 Dose: 1 mg Documented by: Magnesium Hydroxide (Milk Of Magnesia 30 Ml Oral.Susp) 30 ml PO DAILY PRN PRN Reason: Constipation Nicotine (Nicotine 14 Mg Patch.Td24) 14 mg TRANSDERMA DAILY [facility] Last Admin: 08/23/21 08:14 Dose: 14 mg Documented by: Paliperidone (Paliperidone Er 9 Mg Tab.Er.24) 9 mg PO BEDTIME RISSA Last Admin: 08/22/21 20:42 Dose: 9 mg Documented by: Prazosin HCl (Prazosin Hcl 1 Mg Capsule) 1 mg PO BEDTIME RISSA; Protocol Last Admin: 08/22/21 20:42 Dose: 1 mg Documented by: Sertraline HCl (Sertraline Hcl 50 Mg Tablet) 150 mg PO DAILY [facility] Last Admin: 08/23/21 08:14 Dose: 150 mg Documented by: Trazodone HCl (Trazodone Hcl 50 Mg Tablet) 50 mg PO BEDTIME PRN PRN Reason: Insomnia Trazodone HCl (Trazodone Hcl 100 Mg Tablet) 100 mg PO BEDTIME RISSA Last Admin: 08/22/21 20:42 Dose: 100 mg Documented by: Allergies Allergies Allergy/AdvReac Type Severity Reaction Status Date / Time tomato [Tomato] Allergy Severe DIFFICULTY Verified 08/23/21 15:05 BREATHING, swelling of face and throat divalproex sodium Allergy Mild SEIZURES Verified 08/23/21 15:05 [From Depakote] olanzapine [From Zyprexa] Allergy Mild NIPPLES Verified 08/23/21 15:05 LEAK risperidone [From Risperdal] Allergy Mild UNKNOWN Verified 08/23/21 15:05 quetiapine [From SEROQUEL] Allergy Unknown HEART Verified 08/23/21 15:05 PALPITATIONS lithium [[place]] AdvReac Mild STOMACH Verified 08/23/21 15:05 PAIN aripiprazole [From ABILIFY] AdvReac Unknown DYSTONIA Verified 08/23/21 15:05 Assessment & Plan Assessment & Plan (1) Schizoaffective disorder: Qualifiers: Schizoaffective disorder type: depressive Qualified Code(s): F25.1 - Schizoaffective disorder, depressive type Status: Chronic Code(s): F25.9 - Schizoaffective disorder, unspecified (2) ADHD: Status: Acute Code(s): F90.9 - Attention-deficit hyperactivity disorder, unspecified type (3) Opioid use disorder, severe, dependence: Status: Acute Code(s): F11.20 - Opioid dependence, uncomplicated Plan Patient is a 41-year-old male with history of schizoaffective disorder, PTSD, ADHD and substance use disorder on opioid maintenance medication who presents with worsening auditory hallucinations, racing mind and intermittent SI in the face of going off medications. -patient presents with auditory hallucinations and some intermittent, passive SI, racing thoughts which is typical presentation for him. Patient wants to restart his medications which writer technical publications reviewed and patient agreed. Denies any substance abuse and does not in withdrawal 08/23 patient reports doing well, good mood, no SI, auditory hallucinations are minimal and mostly able to be ignored. He is eating and sleeping well. Patient would like to discharge tomorrow as his 3 day notice is due soon. Patient wants to get back on Sublicade which is ordered. Patient is not in imminent risk of harm to self or others and request for discharge honored Plan: Three day notice Q 15 minute checks Home meds: Amphetamine/Dextroamphetamine 20 mg PO BID@0830,1430 [facility] will DC Buprenorphine/Naloxone (Buprenorphine/Naloxone 8/2 Mg Film)? 2 film SUBLINGUAL DAILY R[facility] Sublicade 100mg ordered Clonidine HCl 0.1 mg PO TID PRN Anxiety Lorazepam (Lorazepam 1 Mg Tablet)? 1 mg PO TID PRN Anxiety Nicotine (Nicotine 14 Mg Patch.Td24)? 14 mg TRANSDERMA DAILY RISSA Titrate Paliperidone to home dose of 9mg qhs. Prazosin HCl 1 mg PO BEDTIME SCHl Sertraline HCl (Sertraline Hcl 50 Mg Tablet)? 150 mg PO DAILY RISSA Trazodone HCl (Trazodone Hcl 100 Mg Tablet)? 100 mg PO BEDTIME Will review labs from [facility]; will order labs as clinically indicated 08/20/21: Continue current tx 08/21/2021 continue current regimen and plans 08/22/2021: Continue current plans and regimen I spent minutes with the patient and/or on the patient floor today, greater than?50% of which was spent counseling/coordinating care.
[2021-08-23] MEDS: LORazepam 1 MG TABLET PO (17:20)
[2021-08-23 21:57] VITALS: BP 115/76; PULSE 107; RESP 16; TEMP 36.2
[2021-08-23] MEDS: traZODone HCL 100 MG TABLET PO (21:59)
[2021-08-23] MEDS: Prazosin HCL 1 MG CAPSULE PO (21:59)
[2021-08-23] MEDS: Paliperidone ER 9 MG TAB.ER.24 PO (21:59)
[2021-08-24] MEDS: LORazepam 1 MG TABLET PO (05:59)
[2021-08-24 06:00] VITALS: BP 102/66; PULSE 98; RESP 18; TEMP 36.8; O2SAT 98
[2021-08-24] MEDS: Dextroamphetamine/Amphetamine XR 10 MG CAP.ER.24H 20 MG PO ×2 (08:04→12:07)
[2021-08-24] MEDS: Nicotine 14 MG PATCH.TD24 TRANSDERMA (08:04)
[2021-08-24] MEDS: Sertraline HCL 50 MG TABLET 150 MG PO (08:04)
[2021-08-24] MEDS: Buprenorphine/Naloxone 8/2 mg FILM 2 FILM SUBLINGUAL (08:04)
--- NOTE | 2021-08-24 11:13 | PM.PSYDC ---
DS: Providers Provider Date of Service: 08/24/21 Date of admission: 08/18/21 22:27 Date of discharge: 08/24/21 Primary care physician: Unknown Physician Attending physician on admission: Ishmael Dunne Consults: 08/18/21 23:15 Consult to Hospitalist Routine Consulting Provider: Hospitalist Reason For Exam: New admit from [facility] Attending physician on discharge: Ishmael Dunne DS: Diagnosis Discharge Diagnosis (1) Schizoaffective disorder: Status: Chronic (2) ADHD: Status: Acute (3) Opioid use disorder, severe, dependence: Status: Acute DS: Medications Discharge Medications Home Medications: Previous Rx's Medication Instructions Recorded naloxone 4 mg/actuation nasal 4 mg INTRANASAL (ALT) Q2M PRN #2 ea 05/24/21 spray (Narcan) buprenorphine 100 mg/0.5 mL 100 mg (0.5 mL) SUBCUT ONCE 30 07/13/21 solution,exten.rel.subcutaneous Days #0.5 ml syringe (Sublocade) clonidine HCl 0.1 mg tablet 0.1 mg PO BID PRN 30 Days #60 tab 08/24/21 dextroamphetamine-amphetamine ER 20 mg PO BID 30 Days #60 cap 08/24/21 20 mg 24hr capsule,extend release nicotine 14 mg/24 hr daily 1 patch TRANSDERMAL DAILY 28 Days 08/24/21 transdermal patch #28 ea paliperidone 9 mg tablet,extended 9 mg PO BEDTIME 30 Days #30 tab 08/24/21 release 24 hr (Invega) prazosin 1 mg capsule 1 mg PO BEDTIME 30 Days #30 cap 08/24/21 sertraline 150 mg capsule 150 mg PO DAILY 30 Days #30 cap 08/24/21 trazodone 100 mg tablet 100 mg PO BEDTIME PRN 30 Days #30 08/24/21 tab Mental Status Exam Mental Status Exam Narrative: Pt is alert and oriented; behavior is cooperative and calm; patient is not in distress; dressed in casual attire, earring and adequate hygiene; mood is described as good and affect congruent, more naturally expressive; adequate eye contact; Speech is normal rate, volume and prosody and not pressured; no psychomotor agitation; thought process is organized and goal directed; Thought content is on tx, discharge and otherwise pertinent to relevant topics and without any delusional content, paranoid ideations or grandiosity; intermittent, no SI; no HI.? Mild Auditory hallucinations present, at baseline.? Patients insight and judgment are intact. DS: Summary Hospital Course Hospital Course: HPI Patient is a 41-year-old male with history of schizoaffective disorder, PTSD, ADHD and substance use disorder on opioid maintenance medication who presents with worsening auditory hallucinations, racing mind and intermittent SI in the face of going off medications. -patient presents with auditory hallucinations and some intermittent, passive SI, racing thoughts which is typical presentation for him.? Patient wants to restart his medications which television script writer reviewed and patient agreed.? Denies any substance abuse and does not in withdrawal Hospital course: On admission, patient was calm and cooperative wanting to get back on his medications. He endorsed auditory hallucinations and some intermittent, passive SI (no intention/plans), racing thoughts which is typical presentation for him when off meds. He denied any substance abuse. Patient was restarted on his medications to good effect (Palliperidone, sertraline, trazodone, prazosin, clonidine, and Adderall). His mood significantly improved and depression resolved. SI also fully resolved. Auditory hallucinations remained however the became minimal and he reported he was mostly able to ignore them. Patient was eating and sleeping well on the unit. He placed a 3 day notice. Patient remained in good behavioral and impulse control throughout his stay and Had appropriate interactions with both peers and staff. Patient was also able to get back on Sublicade which was started on the unit. Patient remains stable, and good mood and felt ready for discharge; Patient was future oriented and optimistic about both staying sober and stable. Given his history he remains vulnerable to both relapse and decompensation however these are chronic struggles for patient of which he is well aware and attends to as an outpatient. Patient was not in imminent risk for harm to self or others and his request for discharge honored. Assistant Elementary Teacher agreed to continue Adderall For ADHD and Ativan for panic; Although patient has struggles with substance abuse, he has remained sober. It is television script writer's opinion that treating patient's ADHD lowers his impulse control and better helps him to remain sober. Ativan also used for panic and knowing that it is available, also helps increase patient's overall stability. For these reasons Its television script writer's opinion that the potential benefit outweighs the potential risks. Time spent discussing smoking cessation with patient: 3 to 10 minutes Status at Discharge Functional status at discharge: independent ambulation Overall status at discharge: patient is back to baseline Time Spent with Patient Time attestation: Total time spent providing and/or coordinating discharge services: Time spent: Greater than 30 minutes Discharge Plan Discharge Patient Disposition: Home, Self-Care Discharge Diagnosis: Schizoaffective disorder, depressed type Referrals: Therapy Intake: Sangeeta Berumen [Other] - 08/26/21 2:00 pm (This is an in-office appointment. You must attend this appointment to be referred for psychiatric services) Sublocade: [facility] [Other] - 09/20/21 2:30 pm () Physician,Unknown J [Primary Care Provider] - 1 Week Discharge Medications: New dextroamphetamine-amphetamine 20 mg capsule,extended release 24hr 20 mg PO BID 30 Days Qty: 60 0RF Rx Instructions: take one tab in AM and 1 tab at 1pm paliperidone [Invega] 9 mg Tablet Extended Release 24 Hr 9 mg PO BEDTIME 30 Days Qty: 30 0RF lorazepam [Ativan] 1 mg tablet 1 mg PO DAILY PRN (Reason: anxiety) 15 Days Qty: 15 1RF Continued naloxone [Narcan] 4 mg/actuation [place],Non-Aerosol 4 mg intranasal (ALT) Q2M PRN (Reason: opioid overdose) Qty: 2 0RF nicotine 14 mg/24 hr patch 24 hour 1 patch transdermal DAILY 28 Days Qty: 28 1RF Rx Instructions: remove at bedtime clonidine HCl 0.1 mg Tablet 0.1 mg PO BID PRN (Reason: anxiety) 30 Days Qty: 60 0RF Protocol: Hold for SBP< HOLD for SBP < : 90 prazosin 1 mg Capsule 1 mg PO BEDTIME 30 Days Qty: 30 0RF Protocol: Hold for SBP< HOLD for SBP < : 90 sertraline 150 mg capsule 150 mg PO DAILY 30 Days Qty: 30 0RF Sublocade 100 mg/0.5 mL solution, extended rel syringe 100 mg subcut ONCE 30 Days Qty: 0.5 5RF Changed trazodone 100 mg Tablet 100 mg PO BEDTIME PRN (Reason: insomnia) 30 Days Qty: 30 0RF Discontinued nicotine 21 mg/24 hr Patch 24 Hour 21 mg transdermal DAILY Qty: 28 0RF buprenorphine-naloxone [Suboxone] 8-2 mg film 1 film sublingual DAILY 30 Days Qty: 30 0RF Discharge Orders: Discharge Order (Routine); Ordered 08/24/21 Ordered By: Ishmael Dunne Diet: regular diet Activity on Discharge: As tolerated Stand Alone Forms: Patient Portal Discharge page Care Plan Goals: Maintain mood and safe behaviors Take medications as prescribed Continue to pursue sobriety Practice coping skills Continue with outpatient providers and reach out to them as needed Health Concerns: Mood stability and behaviors Sobriety Plan of Treatment: Follow up with your PCP, psychiatric provider and other outpatient providers regarding above concerns Take medications as prescribed Assessment: Risk assessment at time of discharge:? Patient was interviewed prior to discharge and found to be fully oriented and without any SI or HI. Patient has insight and demonstrates good judgment in terms of wanting to pursue treatment. Patient is not in imminent risk of harm to self or others and has a safety plan that includes presenting to the closest ER or calling 911 if feeling unsafe.? Patient has been observed closely by nursing and unit staff throughout admission; patient has not engaged in any behaviors that suggest dangerousness to self or others and has demonstrated appropriate behaviors and impulse control
[2021-08-24] MEDS: Naloxone HCl Nasal TAKE HOME 4 MG SPRAY NOSTRILALT (11:34)
[2021-08-24] MEDS: Paliperidone ER 9 MG TAB.ER.24 PO (12:04)
== END 2021-08-24 13:11 | disposition home or self-care (01) | DRG 750 ==
PROVIDERS: Admitting Provider Psychiatry & Neurology Psychiatry; Visit Provider Psychiatry & Neurology Psychiatry
DX: F25.9 Schizoaffective disorder, unspecified (principal); R45.851 Suicidal ideations; F42.9 Obsessive-compulsive disorder, unspecified; F11.20 Opioid dependence, uncomplicated; F14.10 Cocaine abuse, uncomplicated; F43.10 Post-traumatic stress disorder, unspecified; F90.9 Attention-deficit hyperactivity disorder, unspecified type; I10 Essential (primary) hypertension; F17.210 Nicotine dependence, cigarettes, uncomplicated; Z71.6 Tobacco abuse counseling; Z88.8 Allergy status to other drugs, medicaments and biological substances; Z79.899 Other long term (current) drug therapy

== ENCOUNTER → 2021-08-23 14:58 | Outpatient (BNVA) | payer OTHER, SELFPAY | PROVIDERS: Visit Provider Internal Medicine | DX: Z51.81 Encounter for therapeutic drug level monitoring (principal); F11.20 Opioid dependence, uncomplicated | CPT/HCPCS: 96372; 99212 ==

== ENCOUNTER → 2021-09-27 13:08 | Outpatient (BNVA) | payer OTHER, SELFPAY | PROVIDERS: Visit Provider Internal Medicine | DX: F11.20 Opioid dependence, uncomplicated (principal) | CPT/HCPCS: 80305; 96372; 99212; Q9991 ==

== ENCOUNTER → 2021-10-25 14:44 | Outpatient (BNVA) | payer OTHER, SELFPAY | PROVIDERS: Visit Provider Internal Medicine | DX: Z51.81 Encounter for therapeutic drug level monitoring (principal); F11.20 Opioid dependence, uncomplicated | CPT/HCPCS: 80305; 96372; 99212 ==

== ENCOUNTER → 2021-11-22 14:33 | Outpatient (BNVA) | payer OTHER, SELFPAY | PROVIDERS: Visit Provider Internal Medicine | DX: F11.20 Opioid dependence, uncomplicated (principal); Z51.81 Encounter for therapeutic drug level monitoring | CPT/HCPCS: 99212 ==

== ENCOUNTER → 2021-11-26 11:36 | Outpatient (BNVA) | payer OTHER, SELFPAY | PROVIDERS: Visit Provider Internal Medicine | DX: Z51.81 Encounter for therapeutic drug level monitoring (principal); F11.20 Opioid dependence, uncomplicated | CPT/HCPCS: 99212 ==

== ENCOUNTER 2022-01-16 14:07 | Emergency (ER) | payer OTHER, SELFPAY ==
[2022-01-16 14:17] VITALS: BP 97/61; PULSE 80; RESP 16; O2SAT 97; BMI 29.5
[2022-01-16 14:52] LABS: COVID-19 Test Negative (Negative)
[2022-01-16 14:56] LABS: Amphetamine Screen Urine Not Detected (Not Detect); Barbiturates, Urine Not Detected (Not Detect); Benzodiazepines Screen Urine Not Detected (Not Detect); Cannabinoid Screen Urine POSITIVE (Not Detect); Cocaine Screen Urine Not Detected (Not Detect); Fentanyl, urine POSITIVE (Not Detect); Opiate Screen Urine POSITIVE (Not Detect); Phencyclidine Screen Urine Not Detected (Not Detect)
--- NOTE | 2022-01-16 15:29 | ED.PSYCH ---
HPI - Psych General Chief Complaint: Psychiatric Symptoms <GERALD Mathur - Last Filed: 01/16/22 21:05> Stated Complaint: Crisis <GERALD Mathur Last Filed: 01/16/22 21:05> Time Seen by Provider: 01/16/22 14:28 <GERALD Mathur Last Filed: 01/16/22 21:05> Source: patient <GERALD Mathur Last Filed: 01/16/22 21:05> Mode of arrival: ambulatory <GERALD Mathur Last Filed: 01/16/22 21:05> Limitations: no limitations <GERALD Mathur Last Filed: 01/16/22 21:05> History of Present Illness HPI Narrative: This is a 41-year-old male history of opiate use disorder, schizoaffective disorder, ADHD, depression presenting to the emergency department complaints of depression, suicidal ideation with plan to hang himself and relapse on opiates times a week. Patient tells me that he has been having increasing life stressors, 1 of which is that he relapsed on heroin, reports using IV and inhaling. He also tells me he has been having relationship problems which have been contributing to his increasing depression and suicidal ideation. Patient tells me that he wants to stop using drugs weak and feels safe again. Patient reports that he is hearing voices however unable to tell me exactly what they are saying. Denies tactile and visual hallucinations. Denies alcohol, tobacco. Denies any medical complaints at this time. Denies homicidal ideation <GERALD Mathur Last Filed: 01/16/22 21:05> Related Data Home Medications: Home Medications Medication Instructions Recorded Confirmed clonidine HCl 0.1 mg tablet 0.1 mg PO TID PRN anxiety 01/16/22 01/16/22 nicotine 21 mg/24 hr daily 1 patch topical DAILY 01/16/22 01/16/22 transdermal patch paliperidone 3 mg tablet,extended 3 mg PO BEDTIME 01/16/22 01/16/22 release 24 hr Previous Rx's Medication Instructions Recorded naloxone 4 mg/actuation nasal 4 mg intranasal (ALT) Q2M PRN 05/24/21 spray (Narcan) opioid overdose #2 ea dextroamphetamine-amphetamine ER 20 mg PO BID 30 days #60 caps 08/24/21 20 mg 24hr capsule,extend release lorazepam 1 mg tablet (Ativan) 1 mg PO DAILY PRN anxiety 15 days 08/24/21 #15 tabs paliperidone 9 mg tablet,extended 9 mg PO BEDTIME 30 days #30 tabs 08/24/21 release 24 hr (Invega) prazosin 1 mg capsule 1 mg PO BEDTIME 30 days #30 caps 08/24/21 sertraline 50 mg tablet 150 mg PO DAILY 30 days #90 tabs 08/24/21 trazodone 100 mg tablet 100 mg PO BEDTIME PRN insomnia 30 08/24/21 days #30 tabs buprenorphine 8 mg-naloxone 2 mg 2 film sublingual DAILY 7 days #14 12/24/21 sublingual film (Suboxone) ea <GERALD Mathur - Last Filed: 01/16/22 21:05> Allergies/Adverse Reactions: Allergies Allergy/AdvReac Type Severity Reaction Status Date / Time tomato [Tomato] Allergy Severe DIFFICULTY Verified 11/26/21 11:58 BREATHING, swelling of face and throat divalproex sodium Allergy Mild SEIZURES Verified 11/26/21 11:58 [From Depakote] olanzapine [From Zyprexa] Allergy Mild NIPPLES Verified 11/26/21 11:58 LEAK risperidone [From Risperdal] Allergy Mild UNKNOWN Verified 11/26/21 11:58 quetiapine [From SEROQUEL] Allergy Unknown HEART Verified 11/26/21 11:58 PALPITATIONS lithium [[place]] AdvReac Mild STOMACH Verified 11/26/21 11:58 PAIN aripiprazole [From ABILIFY] AdvReac Unknown DYSTONIA Verified 11/26/21 11:58 <GERALD Mathur Last Filed: 01/16/22 21:05> Review of Systems Review of Systems: Constitutional : No Weight loss, No Fever, No Chills, No Fatigue, No Malaise ENT/Mouth : No sore throat, No Rhinorrhea Eyes: No Eye Pain, No Swelling, No Redness Cardiovascular : No Chest Pain, No SOB, No Dyspnea on Exertion, No Orthopnea, No Edema, No Palpitations Respiratory : No Cough, No Sputum, No Wheezing Gastrointestinal : No Nausea, No Vomiting, No Diarrhea, No Constipation, No abdominal Pain, No Hematochezia, No Melena Genitourinary : No Dysuria, No Urinary Frequency, No Hematuria, Musculoskeletal : No joint pain, No Myalgias, No Joint Swelling Skin : No Skin Lesions, No rash Neuro : No Weakness, No Numbness, No Dizziness, No Headache Psych : + Anxiety/Panic, + Depression, + AH, No VH/TH, No Hi, + SI All other systems reviewed and are negative <GERALD Mathur - Last Filed: 01/16/22 21:05> Yes all other systems are reviewed and are negative <GERALD Mathur - Last Filed: 01/16/22 21:05> [facility] Past Medical History Attestation statement: The following information was validated with the patient. <GERALD Mathur - Last Filed: 01/16/22 21:05> Source: old records reviewed and nursing notes reviewed <GERALD Mathur - Last Filed: 01/16/22 21:05> Medical History: Medical History Cocaine use disorder Cocaine use disorder HTN (hypertension) OCD (obsessive compulsive disorder) Opioid use disorder, severe, dependence Panic anxiety syndrome Post traumatic stress disorder (PTSD) Schizoaffective disorder, depressive type <GERALD Mathur - Last Filed: 01/16/22 21:05> Surgical History: Surgical History No pertinent past surgical history <GERALD Mathur - Last Filed: 01/16/22 21:05> Social History Social History: Social History Household Members: None Household Members Other:: lives alone Housing: House Do you presently have visiting nurse or other home services: No Unable to assess alcohol history related to: Unknown Alcohol intake: never Patient Tobacco Use Status: Current everyday Tobacco user Tobacco use type: Cigarette Cigarette Packs Per Day: 1 Cigarettes Per Day: 20.0 Years Smoked: 30 e-Cigarette/Vaping Use: Currently Using Second Hand Smoke Exposure: No Substance Use Type: Marijuana and Opiates Advance Directives: No Advance Directives Information Provided: Yes service: No Sexual orientation: Straight/Heterosexual <GERALD Mathur - Last Filed: 01/16/22 21:05> Physical Exam Vital Signs: Vital Signs: Last Vital Signs Pulse 80 01/16/22 14:17 Resp 16 01/16/22 14:17 BP 97/61 01/16/22 14:17 Pulse Ox 97 01/16/22 14:17 O2 Del Method 01/16/22 14:17 BMI result Body Mass Index 29.5 vss <GERALD Mathur - Last Filed: 01/16/22 21:05> Vital Signs: Last Vital Signs Pulse 80 01/16/22 14:17 Resp 16 01/16/22 14:17 BP 97/61 01/16/22 14:17 Pulse Ox 97 01/16/22 14:17 O2 Del Method 01/16/22 14:17 BMI result Body Mass Index 29.5 <Yue Hendrickson NP - Last Filed: 01/16/22 22:38> Appearance: Alert.? Oriented X3.? No acute distress.? Head: Normocephalic, atraumatic, no step-offs or deformities Eyes: Pupils equal, round and reactive to light.? CVS: Normal heart rate and rhythm.? Pulses normal.? Respiratory: No respiratory distress.? Breath sounds normal.? Abdomen: Soft and nontender.? Skin: Skin warm and dry.? Normal skin color.? Normal skin turgor.? Extremities: No lower extremity edema.? No calf ttp. 5/5 strength to bilateral upper and lower extremities Neuro: Oriented X 3.? No motor deficit.? No sensory deficit. CN 2-12 intact. Ambulating steady gait normal coordination <GERALD Mathur - Last Filed: 01/16/22 21:05> Course Course Course Narrative: 17:20 BHN consult complete, patient section 12, patient had a suicidal ideation with plan to hang himself, he has past history of suicide attempts, and is currently living alone. He is under the influence of opioids and marijuana, and has concerns about his psychiatric providers. Patient is bed search. <Yue Hendrickson NP - Last Filed: 01/16/22 22:38> Reevaluation(s) Reevaluation #1: CBC appears to be at patient's baseline. Chemistry with no acute findings. Urine toxicology positive for fentanyl, opiates. Ethanol level negative. COVID negative. Salicylates and acetaminophen pending. At this time patient will be placed into physician observation to allow more time for patient to be placed in an inpatient psychiatric unit. At time observation was started patient common cooperative no acute distress. Will continue to monitor. At time observation was started vital signs stable. <GERALD Mathur - Last Filed: 01/16/22 21:05> Time: 21:04 <GERALD Mathur - Last Filed: 01/16/22 21:05> MDM - Psych MDM Narrative Medical decision making narrative: 1500 41-year-old male presenting with depression, suicidal ideation with plan to hang himself in auditory hallucinations times a week. Recently relapsed on heroin. Reports increasing life stressors. Physical examination benign. Plan at this time is medical clearance and evaluation by the behavioral health team. <GERALD Mathur - Last Filed: 01/16/22 21:05> Medical Records Attestation: I reviewed the patient's medical records. <GERALD Mathur - Last Filed: 01/16/22 21:05> Lab Data Attestation: I reviewed the patient's lab results. <GERALD Mathur - Last Filed: 01/16/22 21:05> Result diagrams: : 01/16/22 18:51 01/16/22 18:51 <GERALD Mathur - Last Filed: 01/16/22 21:05> Labs: Lab Results 01/16/22 01/16/22 01/16/22 Range/Units 14:31 14:31 18:51 WBC 4.0 L (4.8-10.8) X10*3/uL RBC 4.85 (4.60-5.80) X10*6/uL Hgb 14.2 (14.0-18.0) g/dl Hct 42.3 (42.0-52.0) % MCV 87.2 (80.0-98.0) fL MCH 29.3 (27.0-33.0) pg MCHC 33.6 (31.0-36.0) g/dl RDW 12.2 (11.0-16.0) % Plt Count 164 (160-400) X10*3/uL MPV 11.9 (9.4-12.4) fL Immature Gran % (Auto) 0.3 (0.0-0.4) % Neut % (Auto) 53.0 (45-73) % Lymph % (Auto) 36.1 (20-40) % [place] % (Auto) 6.8 (2-11) % Eos % (Auto) 3.3 (0-4) % Baso % (Auto) 0.5 (0-2) % Lymph # (Auto) 1.4 (1.2-4.9) X10*3/uL [place] # (Auto) 0.3 (0.1-1.2) X10*3/uL Eos # (Auto) 0.1 (0.0-0.4) X10*3/uL Baso # (Auto) 0.0 (0.0-0.2) X10*3/uL Abs Immat Gran (auto) 0.01 (0.00-0.03) X10*3/uL Absolute Neuts (auto) 2.1 (2.0-8.3) x10*3/uL Absolute Nucleated RBC 0.000 (0.0-0.012) X10*3/uL Nucleated RBC % (auto) 0.0 (0.0-0.2) /100WBC Sodium (135-145) mmol/L Potassium (3.3-5.1) mmol/L Chloride (96-108) mmol/L Carbon Dioxide (22-29) mmol/L Anion Gap (12-20) BUN (9-16) mg/dL Creatinine (0.5-1.4) mg/dL Estim Creat Clear Calc Estimated GFR Random Glucose (60-115) mg/dL Calcium (8.4-10.2) mg/dL Magnesium (1.6-2.6) mg/dL Total Bilirubin (0.0-1.0) mg/dL AST (5-37) U/L ALT (0-40) U/L Alkaline Phosphatase (39-117) U/L Total Protein (6.5-8.0) g/dL Albumin (3.5-5.0) g/dL Salicylates (15-30) mg/dL Urine Opiates Screen POSITIVE H (Not Detect) Urine Fentanyl Screen POSITIVE H (Not Detect) Acetaminophen (<30) mcg/mL Ur Barbiturates Screen Not Detected (Not Detect) Ur Phencyclidine Scrn Not Detected (Not Detect) Ur Amphetamines Screen Not Detected (Not Detect) U Benzodiazepines Scrn Not Detected (Not Detect) Urine Cocaine Screen Not Detected (Not Detect) U Marijuana (THC) Screen POSITIVE H (Not Detect) Ethyl Alcohol mg/dL COVID-19 (SHAYY) Negative (Negative) COVID-19 Clin Com See Note 01/16/22 Range/Units 18:51 WBC (4.8-10.8) X10*3/uL RBC (4.60-5.80) X10*6/uL Hgb (14.0-18.0) g/dl Hct (42.0-52.0) % MCV (80.0-98.0) fL MCH (27.0-33.0) pg MCHC (31.0-36.0) g/dl RDW (11.0-16.0) % Plt Count (160-400) X10*3/uL MPV (9.4-12.4) fL Immature Gran % (Auto) (0.0-0.4) % Neut % (Auto) (45-73) % Lymph % (Auto) (20-40) % [place] % (Auto) (2-11) % Eos % (Auto) (0-4) % Baso % (Auto) (0-2) % Lymph # (Auto) (1.2-4.9) X10*3/uL [place] # (Auto) (0.1-1.2) X10*3/uL Eos # (Auto) (0.0-0.4) X10*3/uL Baso # (Auto) (0.0-0.2) X10*3/uL Abs Immat Gran (auto) (0.00-0.03) X10*3/uL Absolute Neuts (auto) (2.0-8.3) x10*3/uL Absolute Nucleated RBC (0.0-0.012) X10*3/uL Nucleated RBC % (auto) (0.0-0.2) /100WBC Sodium 138 (135-145) mmol/L Potassium 3.9 (3.3-5.1) mmol/L Chloride 103 (96-108) mmol/L Carbon Dioxide 20 L (22-29) mmol/L Anion Gap 19 (12-20) BUN 16 (9-16) mg/dL Creatinine 0.70 (0.5-1.4) mg/dL Estim Creat Clear Calc 151.4 Estimated GFR > 60 Random Glucose 107 (60-115) mg/dL Calcium 9.0 (8.4-10.2) mg/dL Magnesium 1.8 (1.6-2.6) mg/dL Total Bilirubin < 0.2 (0.0-1.0) mg/dL AST 49 H (5-37) U/L ALT 51 H (0-40) U/L Alkaline Phosphatase 80 D (39-117) U/L Total Protein 6.8 (6.5-8.0) g/dL Albumin 4.0 (3.5-5.0) g/dL Salicylates < 5.0 L (15-30) mg/dL Urine Opiates Screen (Not Detect) Urine Fentanyl Screen (Not Detect) Acetaminophen < 1 (<30) mcg/mL Ur Barbiturates Screen (Not Detect) Ur Phencyclidine Scrn (Not Detect) Ur Amphetamines Screen (Not Detect) U Benzodiazepines Scrn (Not Detect) Urine Cocaine Screen (Not Detect) U Marijuana (THC) Screen (Not Detect) Ethyl Alcohol < 10 mg/dL COVID-19 (SHAYY) (Negative) COVID-19 Clin Com <GERALD Mathur - Last Filed: 01/16/22 21:05> Lab Results 01/16/22 01/16/22 01/16/22 Range/Units 14:31 14:31 18:51 WBC 4.0 L (4.8-10.8) X10*3/uL RBC 4.85 (4.60-5.80) X10*6/uL Hgb 14.2 (14.0-18.0) g/dl Hct 42.3 (42.0-52.0) % MCV 87.2 (80.0-98.0) fL MCH 29.3 (27.0-33.0) pg MCHC 33.6 (31.0-36.0) g/dl RDW 12.2 (11.0-16.0) % Plt Count 164 (160-400) X10*3/uL MPV 11.9 (9.4-12.4) fL Immature Gran % (Auto) 0.3 (0.0-0.4) % Neut % (Auto) 53.0 (45-73) % Lymph % (Auto) 36.1 (20-40) % [place] % (Auto) 6.8 (2-11) % Eos % (Auto) 3.3 (0-4) % Baso % (Auto) 0.5 (0-2) % Lymph # (Auto) 1.4 (1.2-4.9) X10*3/uL [place] # (Auto) 0.3 (0.1-1.2) X10*3/uL Eos # (Auto) 0.1 (0.0-0.4) X10*3/uL Baso # (Auto) 0.0 (0.0-0.2) X10*3/uL Abs Immat Gran (auto) 0.01 (0.00-0.03) X10*3/uL Absolute Neuts (auto) 2.1 (2.0-8.3) x10*3/uL Absolute Nucleated RBC 0.000 (0.0-0.012) X10*3/uL Nucleated RBC % (auto) 0.0 (0.0-0.2) /100WBC Sodium (135-145) mmol/L Potassium (3.3-5.1) mmol/L Chloride (96-108) mmol/L Carbon Dioxide (22-29) mmol/L Anion Gap (12-20) BUN (9-16) mg/dL Creatinine (0.5-1.4) mg/dL Estim Creat Clear Calc Estimated GFR Random Glucose (60-115) mg/dL Calcium (8.4-10.2) mg/dL Magnesium (1.6-2.6) mg/dL Total Bilirubin (0.0-1.0) mg/dL AST (5-37) U/L ALT (0-40) U/L Alkaline Phosphatase (39-117) U/L Total Protein (6.5-8.0) g/dL Albumin (3.5-5.0) g/dL Salicylates (15-30) mg/dL Urine Opiates Screen POSITIVE H (Not Detect) Urine Fentanyl Screen POSITIVE H (Not Detect) Acetaminophen (<30) mcg/mL Ur Barbiturates Screen Not Detected (Not Detect) Ur Phencyclidine Scrn Not Detected (Not Detect) Ur Amphetamines Screen Not Detected (Not Detect) U Benzodiazepines Scrn Not Detected (Not Detect) Urine Cocaine Screen Not Detected (Not Detect) U Marijuana (THC) Screen POSITIVE H (Not Detect) Ethyl Alcohol mg/dL COVID-19 (SHAYY) Negative (Negative) COVID-19 Clin Com See Note 01/16/22 Range/Units 18:51 WBC (4.8-10.8) X10*3/uL RBC (4.60-5.80) X10*6/uL Hgb (14.0-18.0) g/dl Hct (42.0-52.0) % MCV (80.0-98.0) fL MCH (27.0-33.0) pg MCHC (31.0-36.0) g/dl RDW (11.0-16.0) % Plt Count (160-400) X10*3/uL MPV (9.4-12.4) fL Immature Gran % (Auto) (0.0-0.4) % Neut % (Auto) (45-73) % Lymph % (Auto) (20-40) % [place] % (Auto) (2-11) % Eos % (Auto) (0-4) % Baso % (Auto) (0-2) % Lymph # (Auto) (1.2-4.9) X10*3/uL [place] # (Auto) (0.1-1.2) X10*3/uL Eos # (Auto) (0.0-0.4) X10*3/uL Baso # (Auto) (0.0-0.2) X10*3/uL Abs Immat Gran (auto) (0.00-0.03) X10*3/uL Absolute Neuts (auto) (2.0-8.3) x10*3/uL Absolute Nucleated RBC (0.0-0.012) X10*3/uL Nucleated RBC % (auto) (0.0-0.2) /100WBC Sodium 138 (135-145) mmol/L Potassium 3.9 (3.3-5.1) mmol/L Chloride 103 (96-108) mmol/L Carbon Dioxide 20 L (22-29) mmol/L Anion Gap 19 (12-20) BUN 16 (9-16) mg/dL Creatinine 0.70 (0.5-1.4) mg/dL Estim Creat Clear Calc 151.4 Estimated GFR > 60 Random Glucose 107 (60-115) mg/dL Calcium 9.0 (8.4-10.2) mg/dL Magnesium 1.8 (1.6-2.6) mg/dL Total Bilirubin < 0.2 (0.0-1.0) mg/dL AST 49 H (5-37) U/L ALT 51 H (0-40) U/L Alkaline Phosphatase 80 D (39-117) U/L Total Protein 6.8 (6.5-8.0) g/dL Albumin 4.0 (3.5-5.0) g/dL Salicylates < 5.0 L (15-30) mg/dL Urine Opiates Screen (Not Detect) Urine Fentanyl Screen (Not Detect) Acetaminophen < 1 (<30) mcg/mL Ur Barbiturates Screen (Not Detect) Ur Phencyclidine Scrn (Not Detect) Ur Amphetamines Screen (Not Detect) U Benzodiazepines Scrn (Not Detect) Urine Cocaine Screen (Not Detect) U Marijuana (THC) Screen (Not Detect) Ethyl Alcohol < 10 mg/dL COVID-19 (SHAYY) (Negative) COVID-19 Clin Com <Yue Hendrickson NP - Last Filed: 01/16/22 22:38> Critical Care Time Critical Care Time Critical Care Time: No <GERALD Mathur - Last Filed: 01/16/22 21:05> Discharge Plan Discharge Clinical Impression: Opioid use disorder, severe, dependence, Suicidal ideation, Depression <GERALD Mathur - Last Filed: 01/16/22 21:05> Patient Disposition: Still a Patient <GERALD Mathur - Last Filed: 01/16/22 21:05> Prescriptions: No Action buprenorphine-naloxone [Suboxone] 8-2 mg film 2 film sublingual DAILY 7 Days Qty: 14 0RF Rx Instructions: place 1 strip/tab under (each) side of tongue MARYBEL [id number] naloxone [Narcan] 4 mg/actuation [place],Non-Aerosol 4 mg intranasal (ALT) Q2M PRN (Reason: opioid overdose) Qty: 2 0RF paliperidone 3 mg tablet extended release 24hr 3 mg PO BEDTIME Rx Instructions: TDD = 12 MG clonidine HCl 0.1 mg tablet 0.1 mg PO TID PRN (Reason: anxiety) Protocol: Hold for SBP< HOLD for SBP < : 90 nicotine 21 mg/24 hr patch 24 hour 1 patch topical DAILY dextroamphetamine-amphetamine 20 mg capsule,extended release 24hr 20 mg PO BID 30 Days Qty: 60 0RF Rx Instructions: take one tab in AM and 1 tab at 1pm paliperidone [Invega] 9 mg Tablet Extended Release 24 Hr 9 mg PO BEDTIME 30 Days Qty: 30 0RF Rx Instructions: TDD = 12 MG prazosin 1 mg Capsule 1 mg PO BEDTIME 30 Days Qty: 30 0RF Protocol: Hold for SBP< HOLD for SBP < : 90 trazodone 100 mg Tablet 100 mg PO BEDTIME PRN (Reason: insomnia) 30 Days Qty: 30 0RF lorazepam [Ativan] 1 mg tablet 1 mg PO DAILY PRN (Reason: anxiety) 15 Days Qty: 15 1RF sertraline 50 mg tablet 150 mg PO DAILY 30 Days Qty: 90 0RF <GERALD Mathur - Last Filed: 01/16/22 21:05>
--- NOTE | 2022-01-16 15:35 | MHC.RECOVRN ---
T/W met w/ pt, after pt request to speak w/ Recovery team. Pt alert, oriented, walking around unit. Pt reports was positive w/ Covid and missed last Sublocade Injection. Pt reports prior, for 3 months received 100mg Sublocade injection. Pt reports since missing last Sublocade injection, for past 2 weeks has had reoccurrence, reports 30 bags heroin IN/IV daily. Pt states had noticed that for past 3 months, with 100mg Sublocade injection, pt states steadily noticed increased cravings. T/W and pt reviewed Sublocade injection education. Pt inquiring about 300mg Sublocade injection at next MAT appt. Pt request next MAT appointment with [facility], [address], Brittany Shepard. Pt states interested in starting Suboxone, if pt is admitted inpatient.
--- NOTE | 2022-01-16 18:39 | PHA.MEDREC ---
Pharmacy Consult ? Medication Reconciliation Pharmacy has completed the medication reconciliation.
[2022-01-16 19:00] LABS: MANUAL DIFF FLAG NO
[2022-01-16 19:22] LABS: Basophils Percent Auto 0.5 % (0-2); Eosinophils Absolute Auto 0.1 X10*3/uL (0.0-0.4); Eosinophils Percent Auto 3.3 % (0-4); Hematocrit 42.3 % (42.0-52.0); Hemoglobin 14.2 g/dl (14.0-18.0); Imm Gran Abs Auto 0.01 X10*3/uL (0.00-0.03); Imm Gran Pct Auto 0.3 % (0.0-0.4); Lymphocytes Absolute Auto 1.4 X10*3/uL (1.2-4.9); Lymphocytes Percent Auto 36.1 % (20-40); Mean Corpuscular HGB Conc 33.6 g/dl (31.0-36.0); Mean Corpuscular Hemoglobin 29.3 pg (27.0-33.0); Mean Corpuscular Volume 87.2 fL (80.0-98.0); Mean Platelet Volume 11.9 fL (9.4-12.4); Monocytes Absolute Auto 0.3 X10*3/uL (0.1-1.2); Monocytes Percent Auto 6.8 % (2-11); Neutrophils Absolute Auto 2.1 x10*3/uL (2.0-8.3); Platelet Count 164 X10*3/uL (160-400); Red Blood Count 4.85 X10*6/uL (4.60-5.80); Red Cell Distribution Width 12.2 % (11.0-16.0)
[2022-01-16 19:35] LABS: Alanine Aminotransferase 51 U/L (0-40); Alkaline Phosphatase 80 U/L (39-117); Anion Gap 19 (12-20); Aspartate Amino Transferase 49 U/L (5-37); Bilirubin Total < 0.2 mg/dL (0.0-1.0); Blood Urea Nitrogen 16 mg/dL (9-16); Carbon Dioxide 20 mmol/L (22-29); Chloride 103 mmol/L (96-108); Creatinine Clr Calc Pharmacy 151.4; Estimated Glomerular Filt Rate > 60; Ethanol < 10 mg/dL; Glucose Random 107 mg/dL (60-115); Magnesium 1.8 mg/dL (1.6-2.6); Potassium 3.9 mmol/L (3.3-5.1); Sodium 138 mmol/L (135-145); Total Protein 6.8 g/dL (6.5-8.0)
[2022-01-16] MEDS: Paliperidone ER 3 MG TAB.ER.24 PO (20:40)
[2022-01-16] MEDS: Paliperidone ER 9 MG TAB.ER.24 PO (20:40)
[2022-01-16] MEDS: Prazosin HCL 1 MG CAPSULE PO (20:40)
[2022-01-16 22:02] LABS: Acetaminophen LAB < 1 mcg/mL (<30); Salicylate < 5.0 mg/dL (15-30)
[2022-01-17 01:18] VITALS: BP 101/70; PULSE 59; RESP 16; TEMP 36.8; O2SAT 97
--- NOTE | 2022-01-17 06:06 | PC.NURSE ---
Patient slept through the night, no distress observed/reported, behavior non concerning, patient was assessed by [facility], disposition Section 12 Inpatient Bed search, confirmed by [place] from [facility], medication compliant, VSS, will continue to monitor.
--- NOTE | 2022-01-17 07:46 | ECG_ITS ---
Test Reason : medical clearance Blood Pressure : / mmHG Vent. Rate : 071 BPM Atrial Rate : 071 BPM P-R Int : 156 ms QRS Dur : 092 ms QT Int : 400 ms P-R-T Axes : 070 019 059 degrees QTc Int : 434 ms Normal sinus rhythm with sinus arrhythmia Normal ECG When compared with ECG of 19-MAY-2021 09:15, No significant change was found Referred By: Elisa Hinojosa Electronically Signed By:BRENDEN ESPINOSA MD
[2022-01-17] MEDS: methADONE HCl 20 MG/2 ML ORAL.CONC PO (08:02)
[2022-01-17] MEDS: Dextroamphetamine/Amphetamine XR 10 MG CAP.ER.24H 20 MG PO ×2 (08:05→16:33)
[2022-01-17] MEDS: Sertraline HCL 50 MG TABLET 150 MG PO (08:06)
--- NOTE | 2022-01-17 11:14 | PM.EVENT ---
Event Note Date of Service: 01/17/22 Event Note: Addiction note: Patient with history of OUD. Previously on Sublocade--missed injection and resumed opiate use. Reporting approx 30 bags daily. Stating that he wishes to resume Sublocade, however due to daily use for over 2 weeks, risk of prescipitated withdrawal. Plan: -methadone to address acute withdrawal sx -will see patient in AM and discuss transition back to suboxone
[2022-01-17] MEDS: methADONE HCl 20 MG/2 ML ORAL.CONC 10 MG PO (12:51)
--- NOTE | 2022-01-17 18:53 | MHC.RECOVSUP ---
Recovery Support note: RN reported patient was experiencing withdrawal symptoms and requesting methadone. Patient was given 20mg of methadone. This law writer met with patient to discuss withdrawal symptoms. Patient reported improvement in symptoms, however still sounded congested and reported runny nose and goose bumps and that he felt sick overall. Patient reports he would like to get back on Suboxone / Sublocade. Discussed with Brittany Shepard NP. Plan for patient to receive additional 10mg today and 30mg tomorrow. Recovery Team will meet with patient on 01/18 to discuss potential plan to get back on Suboxone. Patient is agreeable to this.
[2022-01-17] MEDS: Paliperidone ER 3 MG TAB.ER.24 PO (21:59)
[2022-01-17] MEDS: Prazosin HCL 1 MG CAPSULE PO (21:59)
[2022-01-17] MEDS: Paliperidone ER 9 MG TAB.ER.24 PO (22:00)
[2022-01-18 00:44] VITALS: BP 144/90; PULSE 73; RESP 16; TEMP 36.2; O2SAT 97
--- NOTE | 2022-01-18 06:33 | PC.NURSE ---
Patient slept through the night, no distress observed/reported, behavior non concerning but argumentative at time, patient now have methadone order in placed, medication compliant, VSS, disposition per [facility] is section 12 inpatient bed search, VSS, will continue to monitor.
--- NOTE | 2022-01-18 07:31 | PC.NURSE ---
Report from Peter BARROS. Pt resting quietly in bed at this time. RR reg and even, NAD. Awaiting in-patient bed.
[2022-01-18] MEDS: Sertraline HCL 50 MG TABLET 150 MG PO (08:49)
[2022-01-18] MEDS: methADONE HCl 20 MG/2 ML ORAL.CONC 30 MG PO (08:49)
[2022-01-18] MEDS: Dextroamphetamine/Amphetamine XR 10 MG CAP.ER.24H 20 MG PO (08:49)
[2022-01-18 09:05] VITALS: BP 125/86; PULSE 100; RESP 19; TEMP 36.6; O2SAT 98
--- NOTE | 2022-01-18 09:40 | PC.NURSE ---
Pt a bedsearch at this time, pt reporting that he feels better , is not feeling like hurting anyone else or himself at this time. Plan is for psychiatry to weigh in and potentially clear pt for d/c.
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
--- NOTE | 2022-01-18 12:20 | MHC.RECOVRN ---
Addendum entered by Liset Martinez RN 01/18/22 13:10: Upon d/c this automobile and property underwriter made appt at [facility] tomorrow 01/19/22 at 10:15am, appt card given to pt. Original Note: T/W met w/ pt, pt alert, oriented, walking around unit. Pt reports no withdrawal symptoms at this time. Pt reports is feeling better and not feeling suicidal at this time. Pt reports eager to discharge home, eager to start Subxone/Sublocade. T/W and pt discussed plan of care, if pt cleared for d/c home, will make appt for tomorrow outpatient at [facility]. If pt transitions to inpatient care, Brittany Shepard will meet w/ pt. Pt verbalized understanding. T/W will f/u w/ pt after psychiatric assessment today. Provider MQ aware.
[2022-01-18] MEDS: Naloxone HCl Nasal TAKE HOME 4 MG SPRAY NOSTRILALT (13:02)
== END 2022-01-18 13:18 | disposition home or self-care (01) ==
PROVIDERS: Physician Assistant; Emergency Provider Emergency Medicine Emergency Medical Services
DX: F33.1 Major depressive disorder, recurrent, moderate (principal); R45.851 Suicidal ideations; F11.20 Opioid dependence, uncomplicated; F17.210 Nicotine dependence, cigarettes, uncomplicated; Z20.822 Contact with and (suspected) exposure to COVID-19; Z79.899 Other long term (current) drug therapy; Z71.6 Tobacco abuse counseling
CPT/HCPCS: 36415; 80053; 80143; 80179; 80307; 82077; 83735; 85025; 87635; 93005; 99285

== ENCOUNTER → 2022-01-24 14:33 | Outpatient (BNVA) | payer OTHER, SELFPAY | PROVIDERS: Visit Provider Nurse Practitioner Psychiatric/Mental Health | DX: F14.20 Cocaine dependence, uncomplicated (principal); F11.20 Opioid dependence, uncomplicated; F42.9 Obsessive-compulsive disorder, unspecified; F20.89 Other schizophrenia; F33.9 Major depressive disorder, recurrent, unspecified; F43.10 Post-traumatic stress disorder, unspecified; I10 Essential (primary) hypertension; F17.210 Nicotine dependence, cigarettes, uncomplicated; Z51.81 Encounter for therapeutic drug level monitoring | CPT/HCPCS: 80305; 99212 ==

== ENCOUNTER → 2022-01-28 16:09 | Outpatient (BNVA) | payer OTHER, SELFPAY | PROVIDERS: Visit Provider Nurse Practitioner Psychiatric/Mental Health | DX: F14.20 Cocaine dependence, uncomplicated (principal); F11.20 Opioid dependence, uncomplicated; Z51.81 Encounter for therapeutic drug level monitoring | CPT/HCPCS: 80305; 99212 ==

== ENCOUNTER → 2022-02-01 10:51 | Outpatient (BNVA) | payer OTHER, SELFPAY | PROVIDERS: Visit Provider Nurse Practitioner Psychiatric/Mental Health | DX: F11.20 Opioid dependence, uncomplicated (principal) | CPT/HCPCS: 80305; 99212 ==

== ENCOUNTER → 2022-02-08 11:14 | Outpatient (BNVA) | payer OTHER, SELFPAY | PROVIDERS: Visit Provider Nurse Practitioner Psychiatric/Mental Health | DX: Z51.81 Encounter for therapeutic drug level monitoring (principal); F11.20 Opioid dependence, uncomplicated | CPT/HCPCS: 80305; 99212 ==

== ENCOUNTER → 2022-02-15 11:04 | Outpatient (BNVA) | payer OTHER, SELFPAY | PROVIDERS: Visit Provider Nurse Practitioner Psychiatric/Mental Health | DX: Z51.81 Encounter for therapeutic drug level monitoring (principal); F11.20 Opioid dependence, uncomplicated | CPT/HCPCS: 80305; 99212 ==

== ENCOUNTER → 2022-02-22 13:03 | Outpatient (BNVA) | payer OTHER, SELFPAY | PROVIDERS: Visit Provider Nurse Practitioner Psychiatric/Mental Health | DX: Z51.81 Encounter for therapeutic drug level monitoring (principal); F11.20 Opioid dependence, uncomplicated | CPT/HCPCS: 80305; 99212 ==

== ENCOUNTER → 2022-03-07 11:33 | Outpatient (BNVA) | payer OTHER, SELFPAY | PROVIDERS: Visit Provider Nurse Practitioner Psychiatric/Mental Health | DX: F11.20 Opioid dependence, uncomplicated (principal) | CPT/HCPCS: 99212 ==

== ENCOUNTER → 2022-03-11 11:54 | Outpatient (BNVA) | payer OTHER, SELFPAY | PROVIDERS: Visit Provider Nurse Practitioner Psychiatric/Mental Health | DX: F11.20 Opioid dependence, uncomplicated (principal) | CPT/HCPCS: 80305; 99212 ==

== ENCOUNTER → 2022-03-16 11:43 | Outpatient (BNVA) | payer OTHER, SELFPAY | PROVIDERS: Visit Provider Nurse Practitioner Psychiatric/Mental Health | DX: Z51.81 Encounter for therapeutic drug level monitoring (principal); F11.20 Opioid dependence, uncomplicated | CPT/HCPCS: 80305; 99212 ==

== ENCOUNTER → 2022-03-24 11:30 | Outpatient (BNVA) | payer OTHER, SELFPAY | PROVIDERS: Visit Provider Nurse Practitioner Psychiatric/Mental Health | DX: Z51.81 Encounter for therapeutic drug level monitoring (principal); F11.20 Opioid dependence, uncomplicated | CPT/HCPCS: 80305; 99212 ==

== ENCOUNTER → 2022-03-31 11:00 | Outpatient (BNVA) | payer OTHER, SELFPAY | PROVIDERS: Visit Provider Nurse Practitioner Psychiatric/Mental Health | DX: Z51.81 Encounter for therapeutic drug level monitoring (principal); F11.20 Opioid dependence, uncomplicated | CPT/HCPCS: 99212 ==

== ENCOUNTER → 2022-04-06 13:32 | Outpatient (BNVA) | payer OTHER, SELFPAY | PROVIDERS: Visit Provider Nurse Practitioner Psychiatric/Mental Health | DX: F11.20 Opioid dependence, uncomplicated (principal) | CPT/HCPCS: 80305 ==

== ENCOUNTER → 2022-04-12 13:47 | Outpatient (BNVA) | payer OTHER, SELFPAY | PROVIDERS: Visit Provider Nurse Practitioner Psychiatric/Mental Health | DX: Z51.81 Encounter for therapeutic drug level monitoring (principal); F11.20 Opioid dependence, uncomplicated | CPT/HCPCS: 80305; 96372; 99212 ==

== ENCOUNTER 2022-05-05 15:33 | Inpatient (IN) | payer OTHER, SELFPAY ==
[2022-05-05 16:19] VITALS: BP 127/88; PULSE 85; RESP 15; TEMP 36.4; O2SAT 95; BMI 27.8
[2022-05-05 16:56] LABS: Amphetamine Screen Urine Not Detected (Not Detect); Barbiturates, Urine Not Detected (Not Detect); Benzodiazepines Screen Urine Not Detected (Not Detect); COVID-19 Test Negative (Negative); Cannabinoid Screen Urine POSITIVE (Not Detect); Cocaine Screen Urine Not Detected (Not Detect); Fentanyl, urine POSITIVE (Not Detect); IDNOW Serial# 6674DD1D; Opiate Screen Urine POSITIVE (Not Detect); Phencyclidine Screen Urine Not Detected (Not Detect)
--- NOTE | 2022-05-05 17:03 | ED_ITS ---
HPI - Psych General Chief Complaint: Psychiatric Symptoms Stated Complaint: crisis eval Time Seen by Provider: 05/05/22 16:11 Source: patient Mode of arrival: ambulatory Limitations: no limitations History of Present Illness HPI Narrative: Patient comes to emergency room complaining of suicidal thoughts, relapsed, using heroin again. Patient complaining of severe anxiety and panic attacks. Patient states he had does not have a plan, no homicidal ideation Related Data Home Medications Medication Instructions Recorded Confirmed clonidine HCl 0.1 mg tablet 0.1 mg PO TID PRN anxiety 01/16/22 01/16/22 nicotine 21 mg/24 hr daily 1 patch topical DAILY 01/16/22 01/16/22 transdermal patch paliperidone 3 mg tablet,extended 3 mg PO BEDTIME 01/16/22 01/16/22 release 24 hr Previous Rx's Medication Instructions Recorded naloxone 4 mg/actuation nasal 4 mg intranasal (ALT) Q2M PRN 05/24/21 spray (Narcan) opioid overdose #2 ea dextroamphetamine-amphetamine ER 20 mg PO BID 30 days #60 caps 08/24/21 20 mg 24hr capsule,extend release lorazepam 1 mg tablet (Ativan) 1 mg PO DAILY PRN anxiety 15 days 08/24/21 #15 tabs paliperidone 9 mg tablet,extended 9 mg PO BEDTIME 30 days #30 tabs 08/24/21 release 24 hr (Invega) prazosin 1 mg capsule 1 mg PO BEDTIME 30 days #30 caps 08/24/21 sertraline 50 mg tablet 150 mg PO DAILY 30 days #90 tabs 08/24/21 trazodone 100 mg tablet 100 mg PO BEDTIME PRN insomnia 30 08/24/21 days #30 tabs buprenorphine 300 mg/1.5 mL 300 mg (1.5 mL) subcut ONCE #1.5 mL 03/28/22 solution,exten.rel.subcutaneous syringe (Sublocade) buprenorphine 12 mg-naloxone 3 mg 1 film sublingual BID #15 ea 04/06/22 sublingual film (Suboxone) Allergies Allergy/AdvReac Type Severity Reaction Status Date / Time tomato [Tomato] Allergy Severe DIFFICULTY Verified 04/12/22 14:00 BREATHING, swelling of face and throat divalproex sodium Allergy Mild SEIZURES Verified 04/12/22 14:00 [From Depakote] olanzapine [From Zyprexa] Allergy Mild NIPPLES Verified 04/12/22 14:00 LEAK risperidone [From Risperdal] Allergy Mild UNKNOWN Verified 04/12/22 14:00 quetiapine [From SEROQUEL] Allergy Unknown HEART Verified 04/12/22 14:00 PALPITATIONS lithium [[place]] AdvReac Mild STOMACH Verified 04/12/22 14:00 PAIN aripiprazole [From ABILIFY] AdvReac Unknown DYSTONIA Verified 04/12/22 14:00 Review of Systems Review of Systems: Constitutional : No Weight loss, No Fever, No Chills, No Night Sweats, No Fatigue, No Malaise ENT/Mouth : No Hearing loss, No Ear Pain, No Nasal Congestion, No Sinus Pain, No Hoarseness, No sore throat, No Rhinorrhea, No Swallowing Difficulty Eyes: No Eye Pain, No Swelling, No Redness, No Foreign Body, No Discharge, No Vision Changes Cardiovascular : No Chest Pain, No SOB, No Dyspnea on Exertion, No Orthopnea, No Edema, No Palpitations Respiratory : No Cough, No Sputum, No Wheezing, No Smoke Exposure, No Dyspnea Gastrointestinal : No Nausea, No Vomiting, No Diarrhea, No Constipation, No abdominal Pain, No Hematochezia, No Melena Genitourinary : no irregular bleeding, No Dysuria, No Urinary Frequency, No Hematuria, No Urinary Incontinence, No Urgency, No Flank Pain, No Urinary Flow Changes, No Hesitancy Musculoskeletal : No joint pain, No Myalgias, No Joint Swelling Skin : No Skin Lesions, No rash Neuro : No Weakness, No Numbness, No Paresthesias, No Loss of Consciousness, No Dizziness, No Headache Psych : Complaining of anxiety, depression, vague suicidal ideation, no homicidal ideation Heme/Lymph: No Bruising, No Bleeding,No Lymphadenopathy Endocrine : No Polyuria, No Polydipsia, No Temperature Intolerance PMFSH Past Medical History Medical History Cocaine use disorder Cocaine use disorder HTN (hypertension) OCD (obsessive compulsive disorder) Opioid use disorder, severe, dependence Panic anxiety syndrome Post traumatic stress disorder (PTSD) Schizoaffective disorder, depressive type Surgical History No pertinent past surgical history Social History Social History (Reviewed 01/24/22 @ 16:57 by Ines Morillo Household Members: None Household Members Other:: lives alone Housing: House Do you presently have visiting nurse or other home services: No Unable to assess alcohol history related to: Unknown Alcohol intake: never Patient Tobacco Use Status: Current everyday Tobacco user Tobacco use type: Cigarette Cigarette Packs Per Day: 1 Cigarettes Per Day: 20.0 Years Smoked: 30 e-Cigarette/Vaping Use: Currently Using Second Hand Smoke Exposure: No Substance Use Type: Marijuana and Opiates Advance Directives: No Advance Directives Information Provided: No service: No Sexual orientation: Straight/Heterosexual Physical Exam Vital Signs: Vital Signs: Last Vital Signs Temp 97.6 F 05/05/22 16:19 Pulse 85 05/05/22 16:19 Resp 15 05/05/22 16:19 BP 127/88 05/05/22 16:19 Pulse Ox 95 05/05/22 16:19 O2 Del Method 05/05/22 16:19 BMI result Body Mass Index 27.8 Const: Other: Appearance: Alert. Oriented X3. No acute distress. Eyes: Pupils equal, round and reactive to light. ENT: Pharynx normal. Neck: Normal inspection. Neck supple. No lymph nodes noted. No crepitus CVS: Normal heart rate and rhythm. Pulses normal. Normal S1 and S2 Respiratory: No respiratory distress. Breath sounds normal. No Wheezing. No rales Abdomen: Soft and nontender. No rigidity. No distention. Skin: Skin warm and dry. Normal skin color. Normal skin turgor. Extremities: No lower extremity edema. No Lacerations. No Rash Neuro: Oriented X 3. No motor deficit. No sensory deficit. Moving all extremities. No slurred speech. CN 2 through 12 grossly intact Psych: calm, cooperative, anxious, pacing Course Course Course Narrative: -called patient's labs are pending -patient given 2 mg p.o. Ativan -care team consult pending -patient is on a Section 12 -physician observation started at 17:00 Medical Decision Making Lab Data Labs: Lab Results 05/05/22 05/05/22 Range/Units 16:37 16:37 Urine Opiates Screen POSITIVE H (Not Detect) Urine Fentanyl Screen POSITIVE H (Not Detect) Ur Barbiturates Screen Not Detected (Not Detect) Ur Phencyclidine Scrn Not Detected (Not Detect) Ur Amphetamines Screen Not Detected (Not Detect) U Benzodiazepines Scrn Not Detected (Not Detect) Urine Cocaine Screen Not Detected (Not Detect) U Marijuana (THC) Screen POSITIVE H (Not Detect) COVID-19 (SHAYY) Negative (Negative) COVID-19 Clin Com See Note Discharge Plan Discharge Clinical Impression: Suicidal ideation, Anxiety, Substance abuse Patient Disposition: Still a Patient Prescriptions: No Action Sublocade 300 mg/1.5 mL solution, extended rel syringe 300 mg subcut ONCE Qty: 1.5 5RF Rx Instructions: injection once every 28 days buprenorphine-naloxone [Suboxone] 12-3 mg film 1 film sublingual BID Qty: 15 0RF naloxone [Narcan] 4 mg/actuation [place],Non-Aerosol 4 mg intranasal (ALT) Q2M PRN (Reason: opioid overdose) Qty: 2 0RF paliperidone 3 mg tablet extended release 24hr 3 mg PO BEDTIME Rx Instructions: TDD = 12 MG clonidine HCl 0.1 mg tablet 0.1 mg PO TID PRN (Reason: anxiety) Protocol: Hold for SBP< HOLD for SBP < : 90 nicotine 21 mg/24 hr patch 24 hour 1 patch topical DAILY dextroamphetamine-amphetamine 20 mg capsule,extended release 24hr 20 mg PO BID 30 Days Qty: 60 0RF Rx Instructions: take one tab in AM and 1 tab at 1pm paliperidone [Invega] 9 mg Tablet Extended Release 24 Hr 9 mg PO BEDTIME 30 Days Qty: 30 0RF Rx Instructions: TDD = 12 MG prazosin 1 mg Capsule 1 mg PO BEDTIME 30 Days Qty: 30 0RF Protocol: Hold for SBP< HOLD for SBP < : 90 trazodone 100 mg Tablet 100 mg PO BEDTIME PRN (Reason: insomnia) 30 Days Qty: 30 0RF lorazepam [Ativan] 1 mg tablet 1 mg PO DAILY PRN (Reason: anxiety) 15 Days Qty: 15 1RF sertraline 50 mg tablet 150 mg PO DAILY 30 Days Qty: 90 0RF
[2022-05-05] MEDS: LORazepam 1 MG TABLET 2 MG PO (17:09)
[2022-05-05] MEDS: Ondansetron ODT 4 MG TAB.RAPDIS TRANSLINGU (17:13)
[2022-05-05 17:47] LABS: MANUAL DIFF FLAG NO
[2022-05-05 18:05] LABS: Ethanol < 10 mg/dL
[2022-05-05 18:06] LABS: Alanine Aminotransferase 49 U/L (0-40); Albumin Level 4.5 g/dL (3.5-5.0); Alkaline Phosphatase 74 U/L (39-117); Anion Gap 16 (12-20); Aspartate Amino Transferase 65 U/L (5-37); Bilirubin Direct 0.2 mg/dL (0.0-0.5); Bilirubin Total 0.4 mg/dL (0.0-1.0); Blood Urea Nitrogen 9 mg/dL (9-16); Calcium 9.7 mg/dL (8.4-10.2); Carbon Dioxide 26 mmol/L (22-29); Chloride 101 mmol/L (96-108); Creatinine Clr Calc Pharmacy 139.3; Estimated Glomerular Filt Rate > 60; Glucose Random 95 mg/dL (60-115); Potassium 4.1 mmol/L (3.3-5.1); Sodium 139 mmol/L (135-145); Total Protein 7.7 g/dL (6.5-8.0)
[2022-05-05 18:24] LABS: Basophils Percent Auto 0.4 % (0-2); Eosinophils Absolute Auto 0.1 X10*3/uL (0.0-0.4); Eosinophils Percent Auto 1.3 % (0-4); Hematocrit 44.6 % (42.0-52.0); Hemoglobin 14.9 g/dl (14.0-18.0); Imm Gran Abs Auto 0.01 X10*3/uL (0.00-0.03); Imm Gran Pct Auto 0.2 % (0.0-0.4); Lymphocytes Absolute Auto 1.1 X10*3/uL (1.2-4.9); Lymphocytes Percent Auto 20.7 % (20-40); Mean Corpuscular HGB Conc 33.4 g/dl (31.0-36.0); Mean Corpuscular Hemoglobin 29.2 pg (27.0-33.0); Mean Corpuscular Volume 87.5 fL (80.0-98.0); Mean Platelet Volume 11.3 fL (9.4-12.4); Monocytes Absolute Auto 0.3 X10*3/uL (0.1-1.2); Monocytes Percent Auto 5.5 % (2-11); Neutrophils Absolute Auto 3.9 x10*3/uL (2.0-8.3); Neutrophils Percent Auto 71.9 % (45-73); Platelet Count 225 X10*3/uL (160-400); Red Cell Distribution Width 12.2 % (11.0-16.0); White Blood Count 5.4 X10*3/uL (4.8-10.8)
--- NOTE | 2022-05-05 18:39 | PC.NURSE ---
Pt endorsing concern regarding withdrawals due to recent relapse. Pt reports he usually gets a Sublocade inj every month and his next dose was due 05/10. Pt reports suboxone has limited effectiveness for him and he was hoping for methadone. Contact made with Brittany Shepard and plan is to admin 10mg methadone q3h PRN up to 2 doses. Pt presents anxious, pacing, scratching. States he is feeling anxious, reports recent panic attacks and that he has not experienced panic attacks before. 2mg of ativan admin. effects pending. Pt provided with dinner and is currently eating.
--- NOTE | 2022-05-05 19:48 | P.EN_ITS ---
Event Note Date of Service: 05/05/22 Event Note: Addiction note: Telephone call to this newspaper writer regarding patient in area of ED. Spoke with RN and patient via telephone as this newspaper writer was not on campus. Known to this newspaper writer via outpatient clinic where he is being treated for OUD and received sublocade injection approx 3 weeks ago. Patient reports he has been using opiates (heroin/fentanyl) since the day after his injection. Reports the day of his injection he felt fine then woke in the AM feeling sick and started to use. Has been using approx 10 bags daily. He is not due for another injection until next week and at this time declines any buprenorphine. He is requesting low dose methadone to address withdrawal sx with the goal or transitioning back to buprenorphine. Patient is pending crisis evaluation. Plan: -methadone 10mg q3 PRN for total of 2 doses -clondine 0.1mg TID PRN -will follow up in AM and likely start low dose buprenorphine if patient is agreeable Time Spent With Patient Time: Total time managing care of this patient today ____ minutes.
--- NOTE | 2022-05-05 22:27 | PC.NURSE ---
Patient is under influence as evidenced by bilateral drooping eyes and staggering gait, pacing, moving things around, demanding Methadone which according to patient was prescribed by non ED provider but when explained the dose ordered which is 10 mg every three hours maximum 2 dose. Patient got extremely agitated and rudely replied that this insurance writer is making up the order. Care team disposition is JAZZ follow up due to patient under influence. Staff advice to be careful with patient because of patient's history accusatory behavior. Will continue to monitor.
[2022-05-05 23:16] VITALS: BP 130/76; PULSE 80; RESP 17; TEMP 36.8; O2SAT 96
--- NOTE | 2022-05-06 | ECG_ITS ---
Test Reason : MED CLEARANCE Blood Pressure : / mmHG Vent. Rate : 076 BPM Atrial Rate : 076 BPM P-R Int : 144 ms QRS Dur : 092 ms QT Int : 382 ms P-R-T Axes : 055 021 054 degrees QTc Int : 429 ms Sinus rhythm with marked sinus arrhythmia Otherwise normal ECG When compared with ECG of 17-JAN-2022 09:57, No significant change was found Referred By: Brittany Shepard Electronically Signed By:COREY MENDOSA
[2022-05-06] MEDS: methADONE HCl 20 MG/2 ML ORAL.CONC 10 MG PO ×3 (02:50→10:34)
[2022-05-06] MEDS: Nicotine 21 MG PATCH.TD24 TRANSDERMA (04:40)
--- NOTE | 2022-05-06 06:10 | PC.NURSE ---
Patient remained awake most part of the night, pacing in and out his room, Methadone 10 mg PO administered per request at 0250 & 0609, med rec completed/approved/MAR active, patient;s disposition per care team is pending and reevaluation in the morning, behavior non concerning but at time argumentative especially around medication, VSS, will continue to monitor.
--- NOTE | 2022-05-06 07:08 | PC.NURSE ---
Report from Peter BARROS, care assumed at this time. Pt currently pacing in the milieu. Per report pt did not sleep last night. Plan for JAZZ follow up this morning.
--- NOTE | 2022-05-06 07:15 | PC.NURSE ---
Pt unhappy with methadone dose, states that isn't going to do anything for me, I am going into withdrawal This RN explained to pt that ED providers wouldn't have anythning to do with Methadone dosage and that Brittany Meekn will be in this morning to speak with pt. Pt began muttering under his breath and went to his room.
[2022-05-06] MEDS: Dextroamphetamine/Amphetamine XR 10 MG CAP.ER.24H 20 MG PO ×2 (08:11→12:07)
--- NOTE | 2022-05-06 09:43 | PC.NURSE ---
Pt endorsing he is full withdrawal. Pacing the milieu, signed CV for admission to [facility] later today. Upset he is not going to [facility]. Pt asking for medication for anxiety, stating that the clonidine won't do anything, I am in full withdrawal .
[2022-05-06 09:45] VITALS: BP 141/87; PULSE 78; RESP 20; TEMP 36.9; O2SAT 95
--- NOTE | 2022-05-06 10:16 | MHC.RECOVRN ---
Met with pt in [facility] to discuss substance use and withdrawal symptoms. Pt pacing around pod, anxious. Pt reports he has been using heroin, 15-20 bags daily. Pt reports after Sublocade injection he attempted to cut down/abstain but states I kept waking up sick. Pt would like to utilize methadone while here to detox but continue Sublocade outpatient. Pt reports withdrawal symptoms including anxiety, upset stomach, hot/cold sweats, diaphoresis. Pt appears diaphoretic, anxious, and irritable. Discussed with Brittany Shepard APRN. Plan for additional 10 mg methadone for a total of 30 mg today and taper.
[2022-05-06] MEDS: Paliperidone ER 9 MG TAB.ER.24 PO (11:42)
[2022-05-06] MEDS: LORazepam 1 MG TABLET 2 MG PO (11:42)
[2022-05-06] MEDS: Nicotine Polacrilex 2 MG GUM BUCCAL ×2 (13:22→15:41)
[2022-05-06] MEDS: cloNIDine HCL 0.1 MG TABLET PO ×2 (15:35→21:00)
--- NOTE | 2022-05-06 15:47 | HO.ADDICTPRO ---
Subjective Subjective Date of Service: 05/06/22 Reason For Visit: crisis eval Interim History: Patient received methadone 10mg X2 (2am and 6am) Seen by Recovery support RN in the morning and this keno writer / runner in the afternoon. Patient seen pacing when this keno writer / runner entered the BH unit of the ED, however, patient able to stop and talk with this keno writer / runner. He reports some relief from methadone doses overnight and an additional 10mg this morning. Still experiencing chills, anxiety and restlessness. Noted to have rhinorrhea and piloerection during interview. Patient again states that he wishes to have a methadone taper to address withdrawal sx, with the goal of transitioning back to buprenorphine. This keno writer / runner reinforced that after receiving methadone for several days, he would be unable to get Sublocade next week as he was planning. Required some education around this, but ultimately verbalized understanding. Patient reports that he does not feel SUblocade injection was working due to ongoing cravings and continued use. At this time unclear why he wishes to continue with Subolcade, but we will revisit at a later date. Review of Systems Constitutional: Reports as per HPI Mental Status Exam Mental Status Exam Patient Appearance: Disheveled Patient Orientation: Person, Place, Time and Situation Level of Consciousness: Awake and Restless Mood Description: Anxious Affect Description: Anxious Speech Pattern: Clear Hallucinations: None Delusions: Not Present Thought Process: Intact Judgement: Fair Diagnostics Vital Signs (24Hr): Vital Signs - 24 hr 05/05/22 16:19 05/05/22 23:16 05/06/22 09:45 Temperature 97.6 F 98.2 F 98.4 F Pulse Rate 85 80 78 Respiratory Rate 15 17 20 Blood Pressure 127/88 130/76 141/87 H Pulse Oximetry 95 96 95 Oxygen Delivery Method Room Air Room Air Room Air BMI result Body Mass Index 27.8 Labs 05/05/22 17:39 05/05/22 17:39 Labs: Laboratory Results - last 48 hr 05/05/22 05/05/22 05/05/22 16:37 16:37 17:39 WBC 5.4 RBC 5.10 Hgb 14.9 Hct 44.6 MCV 87.5 MCH 29.2 MCHC 33.4 RDW 12.2 Plt Count 225 D MPV 11.3 Immature Gran % (Auto) 0.2 Neut % (Auto) 71.9 Lymph % (Auto) 20.7 [place] % (Auto) 5.5 Eos % (Auto) 1.3 Baso % (Auto) 0.4 Lymph # (Auto) 1.1 L [place] # (Auto) 0.3 Eos # (Auto) 0.1 Baso # (Auto) 0.0 Abs Immat Gran (auto) 0.01 Absolute Neuts (auto) 3.9 Absolute Nucleated RBC 0.000 Nucleated RBC % (auto) 0.0 Sodium Potassium Chloride Carbon Dioxide Anion Gap BUN Creatinine Estim Creat Clear Calc Estimated GFR Random Glucose Calcium Total Bilirubin Direct Bilirubin AST ALT Alkaline Phosphatase Total Protein Albumin Urine Opiates Screen POSITIVE H Urine Fentanyl Screen POSITIVE H Ur Barbiturates Screen Not Detected Ur Phencyclidine Scrn Not Detected Ur Amphetamines Screen Not Detected U Benzodiazepines Scrn Not Detected Urine Cocaine Screen Not Detected U Marijuana (THC) Screen POSITIVE H Ethyl Alcohol COVID-19 (SHAYY) Negative COVID-19 [employer] See Note 05/05/22 05/05/22 17:39 17:39 WBC RBC Hgb Hct MCV MCH MCHC RDW Plt Count MPV Immature Gran % (Auto) Neut % (Auto) Lymph % (Auto) [place] % (Auto) Eos % (Auto) Baso % (Auto) Lymph # (Auto) [place] # (Auto) Eos # (Auto) Baso # (Auto) Abs Immat Gran (auto) Absolute Neuts (auto) Absolute Nucleated RBC Nucleated RBC % (auto) Sodium 139 Potassium 4.1 Chloride 101 Carbon Dioxide 26 Anion Gap 16 BUN 9 Creatinine 0.75 Estim Creat Clear Calc 139.3 Estimated GFR > 60 Random Glucose 95 Calcium 9.7 D Total Bilirubin 0.4 Direct Bilirubin 0.2 AST 65 H ALT 49 H Alkaline Phosphatase 74 Total Protein 7.7 Albumin 4.5 Urine Opiates Screen Urine Fentanyl Screen Ur Barbiturates Screen Ur Phencyclidine Scrn Ur Amphetamines Screen U Benzodiazepines Scrn Urine Cocaine Screen U Marijuana (THC) Screen Ethyl Alcohol < 10 COVID-19 (SHAYY) COVID-19 [employer] Medications Medications Current Medications Amphetamine/Dextroamphetamine (Dextroamphetamine/Amphetamine Xr 10 Mg Cap.Er.24h) 20 mg PO BID@0900,1300 RISSA Last Admin: 05/06/22 12:07 Dose: 20 mg Clonidine HCl (Clonidine Hcl 0.1 Mg Tablet) 0.1 mg PO TID PRN; Protocol PRN Reason: Anxiety Last Admin: 05/06/22 15:35 Dose: 0.1 mg Paliperidone (Paliperidone Er 9 Mg Tab.Er.24) 9 mg PO DAILY RISSA Last Admin: 05/06/22 11:42 Dose: 9 mg Prazosin HCl (Prazosin Hcl 1 Mg Capsule) 1 mg PO BEDTIME RISSA; Protocol Trazodone HCl (Trazodone Hcl 100 Mg Tablet) 50 - 100 mg PO BEDTIME PRN PRN Reason: Insomnia Allergies Allergies Allergy/AdvReac Type Severity Reaction Status Date / Time tomato [Tomato] Allergy Severe DIFFICULTY Verified 04/12/22 14:00 BREATHING, swelling of face and throat divalproex sodium Allergy Mild SEIZURES Verified 04/12/22 14:00 [From Depakote] olanzapine [From Zyprexa] Allergy Mild NIPPLES Verified 04/12/22 14:00 LEAK risperidone [From Risperdal] Allergy Mild UNKNOWN Verified 04/12/22 14:00 quetiapine [From SEROQUEL] Allergy Unknown HEART Verified 04/12/22 14:00 PALPITATIONS lithium [[place]] AdvReac Mild STOMACH Verified 04/12/22 14:00 PAIN aripiprazole [From ABILIFY] AdvReac Unknown DYSTONIA Verified 04/12/22 14:00 Assessment & Plan Assessment & Plan (1) Opioid use disorder, severe, dependence: Status: Acute Code(s): F11.20 - Opioid dependence, uncomplicated Assessment and Plan: EKG methadone 25mg Monday, 20mg Monday, 15mg Monday, 10mg Monday. Will continue to follow encouraged patient to utilize comfort medications as ordered. Total time managing care of this patient today __25__ minutes.
--- NOTE | 2022-05-06 17:56 | PC.NURSE ---
Patient ambulating with steady gait, pacing back and forth in the ED Pod. RN to RN report given to Bere BARROS. Plan for admit to M3 room 307-2. Pt is upset about this, states I want to go to M5! I want ! I was on M3 before and it was awful . I shared the patient's concerns with Care Team & M3 staff, however, we are unable to admit him to M5, also Dr. Dunne is not working this weekend anyways. Pt mumbling to himself angrily but is cooperative with ED staff & this RN at this time. Awaiting team from M3 to escort him to the unit.
[2022-05-06] MEDS: Prazosin HCL 1 MG CAPSULE PO (21:00)
[2022-05-06] MEDS: traZODone HCL 100 MG TABLET PO (21:05)
--- NOTE | 2022-05-06 21:09 | PC.NURSE ---
Jaswinder was [place] to [facility]3 [place] 1955 [place] [facility] [place] for treatment of Major Depression and Polysubstance abuse.?Tox screen is positive for marijuana, fentanyl and opiates. Precipitant of admission includes suicidality with no specific plan. Jaswinder is alert, fully oriented, irritable and uncooperative with admission assessment, declining to answer most assessment questions. He is vague in most answers he does give, Mood appears depressed. Affect is sad, and irritable.He declined to answer questions about auditory, visual, tactile or other hallucinations but crisis eval notes CAH to harm self and derogatory voices. Pt does not appears internally preoccupied.Thought Process linear and organized. He denies ideation, plan or intent to harm others Appetite is good. He is unsure about recent wt loss. Sleep is poor. Focus is good. Substance Issues include recent alcohol use last two days ago but pt declines to answer questions about amount and length of use. Medical Issues include history of alcohol withdrawal seizures and migraines. ?Pt denies current physical complaint. Pt is placed on q 15 min safety checks
--- NOTE | 2022-05-06 23:05 | PC.NURSE ---
Patient refused flu shot on admission
[2022-05-07 09:20] VITALS: BP 133/70; PULSE 92; RESP 16; TEMP 36.6; O2SAT 98
[2022-05-07] MEDS: Nicotine 21 MG PATCH.TD24 TRANSDERMA (09:25)
[2022-05-07] MEDS: Paliperidone ER 9 MG TAB.ER.24 PO (09:25)
[2022-05-07] MEDS: Dextroamphetamine/Amphetamine XR 10 MG CAP.ER.24H 20 MG PO ×2 (09:25→12:14)
[2022-05-07] MEDS: methADONE HCl 20 MG/2 ML ORAL.CONC 25 MG PO (09:26)
[2022-05-07] MEDS: cloNIDine HCL 0.1 MG TABLET PO (12:14)
[2022-05-07] MEDS: LORazepam 1 MG TABLET PO ×3 (12:16→22:31)
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
[2022-05-07 18:15] VITALS: BP 114/65; PULSE 113; RESP 16; TEMP 36.6; O2SAT 96
[2022-05-07] MEDS: Prazosin HCL 1 MG CAPSULE PO (22:13)
[2022-05-07] MEDS: traZODone HCL 100 MG TABLET PO (22:14)
[2022-05-07 22:19] VITALS: BP 130/65; PULSE 72; TEMP 36.6; O2SAT 96
[2022-05-08 08:30] VITALS: BP 116/77; PULSE 115; RESP 16; TEMP 36.6; O2SAT 98
[2022-05-08] MEDS: Nicotine 21 MG PATCH.TD24 TRANSDERMA (08:35)
[2022-05-08] MEDS: methADONE HCl 20 MG/2 ML ORAL.CONC PO (08:36)
[2022-05-08] MEDS: Paliperidone ER 9 MG TAB.ER.24 PO (08:36)
[2022-05-08] MEDS: Dextroamphetamine/Amphetamine XR 10 MG CAP.ER.24H 20 MG PO ×2 (08:36→12:12)
[2022-05-08] MEDS: LORazepam 1 MG TABLET PO ×2 (11:07→17:10)
--- NOTE | 2022-05-08 12:05 | HO.PSYCHPN ---
Subjective Subjective Date of Service: 05/08/22 Reason For Visit: SI Subjective Notes: Conditional Voluntary Interim History: The nursing staff reported the patient had been still scoring on the CIWA he had been the afore ectatic and anxious. He has been isolative in his room he slept well. On interview the patient reports that he has been anxious but able to cope, no safety concerns at this moment Mental Status Exam Mental Status Exam Patient Appearance: Well Grooomed and Appropriate Patient Orientation: Person and Situation Level of Consciousness: Awake and Appropriate Patient Behavior: Guarded and Cooperative Mood Description: Calm Affect Description: Constricted Patient Cognition Impaired: No Ability to Follow Directions: Good Speech Pattern: Clear Hallucinations: None Delusions: Not Present Thought Process: Evasive Thought Content: positive for [place] and positive for Circumstantial Judgement: Fair Diagnostics Vital Signs (24Hr): Vital Signs - 24 hr 05/07/22 18:15 05/07/22 22:19 05/08/22 08:30 Temperature 97.9 F 97.9 F 97.9 F Pulse Rate 113 H 72 115 H Respiratory Rate 16 16 Blood Pressure 114/65 130/65 116/77 Pulse Oximetry 96 96 98 Oxygen Delivery Method Room Air Room Air Room Air BMI result Body Mass Index 27.8 Labs 05/05/22 17:39 05/05/22 17:39 Medications Medications Current Medications Acetaminophen (Acetaminophen 325 Mg Tablet) 650 mg PO Q6H PRN PRN Reason: Headache/Pain Mild Scale (1-3) Al Hydroxide/Mg Hydroxide (Magnesium Hydrox/Alum Hydrox 30 Ml Oral.Susp) 30 ml PO Q6H PRN PRN Reason: Heartburn/Nausea Amphetamine/Dextroamphetamine (Dextroamphetamine/Amphetamine Xr 10 Mg Cap.Er.24h) 20 mg PO BID@0900,1300 RISSA Last Admin: 05/08/22 08:36 Dose: 20 mg Clonidine HCl (Clonidine Hcl 0.1 Mg Tablet) 0.1 mg PO TID PRN; Protocol PRN Reason: Anxiety Last Admin: 05/07/22 12:14 Dose: 0.1 mg Hydroxyzine HCl (Hydroxyzine Hcl 25 Mg Tablet) 25 mg PO Q6H PRN PRN Reason: Anxiety Lorazepam (Lorazepam 1 Mg Tablet) 1 mg PO Q4H PRN PRN Reason: Alcohol Withdrawal Last Admin: 05/08/22 11:07 Dose: 1 mg Magnesium Hydroxide (Milk Of Magnesia 30 Ml Oral.Susp) 30 ml PO DAILY PRN PRN Reason: Constipation Methadone HCl (Methadone Hcl 20 Mg/2 Ml Oral.Conc) 15 mg PO ONCE@0800 [facility] Stop: 05/09/22 08:01 Nicotine (Nicotine 21 Mg Patch.Td24) 21 mg TRANSDERMA DAILY [facility] Last Admin: 05/08/22 08:35 Dose: 21 mg Nicotine Polacrilex (Nicotine Polacrilex 2 Mg Gum) 2 mg BUCCAL Q2H PRN PRN Reason: nicotene craving Paliperidone (Paliperidone Er 9 Mg Tab.Er.24) 9 mg PO DAILY [facility] Last Admin: 05/08/22 08:36 Dose: 9 mg Prazosin HCl (Prazosin Hcl 1 Mg Capsule) 1 mg PO BEDTIME [facility]; Protocol Last Admin: 05/07/22 22:13 Dose: 1 mg Trazodone HCl (Trazodone Hcl 100 Mg Tablet) 100 mg PO BEDTIME [facility] Last Admin: 05/07/22 22:14 Dose: 100 mg Allergies Allergies Allergy/AdvReac Type Severity Reaction Status Date / Time tomato [Tomato] Allergy Severe DIFFICULTY Verified 04/12/22 14:00 BREATHING, swelling of face and throat divalproex sodium Allergy Mild SEIZURES Verified 04/12/22 14:00 [From Depakote] olanzapine [From Zyprexa] Allergy Mild NIPPLES Verified 04/12/22 14:00 LEAK risperidone [From Risperdal] Allergy Mild UNKNOWN Verified 04/12/22 14:00 quetiapine [From SEROQUEL] Allergy Unknown HEART Verified 04/12/22 14:00 PALPITATIONS lithium [[place]] AdvReac Mild STOMACH Verified 04/12/22 14:00 PAIN aripiprazole [From ABILIFY] AdvReac Unknown DYSTONIA Verified 04/12/22 14:00 Assessment & Plan Assessment & Plan (1) Opioid use disorder, severe, dependence: Status: Acute Code(s): F11.20 - Opioid dependence, uncomplicated (2) Schizoaffective disorder: Qualifiers: Schizoaffective disorder type: depressive Qualified Code(s): F25.1 - Schizoaffective disorder, depressive type Status: Chronic Code(s): F25.9 - Schizoaffective disorder, unspecified (3) ADHD: Status: Acute Code(s): F90.9 - Attention-deficit hyperactivity disorder, unspecified type Plan The patient is an old male with a long history of polysubstance dependence, past history of depression, mood lability and psychosis admitted after relapse on opioids and he had suicidal ideation with a plan to overdose. The patient was assessed by crisis and transferring to this facility for psychiatric stabilization. We discussed at length risks, benefits, side-effects and alternatives and he agreed to restart mood stabilizers. Plan 1. Gather collateral information. 2. Start CIWA protocol with Ativan for medication management. 3. Restart Invega and other mood stabilizers. 4. reassessment results. Reason for contiued inpatient stay Substantial Risk for: inability to function, rapid decompensation and med/psych decompensation Time Spent With Patient Time: Total time managing care of this patient today 20____ minutes.
[2022-05-08 14:15] VITALS: BP 103/65; PULSE 150; RESP 16; TEMP 36.4; O2SAT 100
[2022-05-08 20:15] VITALS: BP 107/68; PULSE 102; RESP 18; O2SAT 98
[2022-05-08] MEDS: traZODone HCL 100 MG TABLET PO (21:05)
[2022-05-08] MEDS: Prazosin HCL 1 MG CAPSULE PO (21:05)
[2022-05-09] MEDS: Dextroamphetamine/Amphetamine XR 10 MG CAP.ER.24H 20 MG PO ×2 (08:37→12:15)
[2022-05-09] MEDS: Nicotine 21 MG PATCH.TD24 TRANSDERMA (08:37)
[2022-05-09] MEDS: methADONE HCl 20 MG/2 ML ORAL.CONC 15 MG PO (08:37)
[2022-05-09] MEDS: Paliperidone ER 9 MG TAB.ER.24 PO (08:37)
[2022-05-09 09:45] VITALS: BP 118/71; PULSE 104; RESP 15; TEMP 36.7; O2SAT 98
--- NOTE | 2022-05-09 10:28 | MHC.RECOVRN ---
Met with pt on M3 to follow up regarding methadone taper. Pt reports receiving 15 mg methadone today and feeling okay. Pt awake, alert, easily engages in conversation, active in milieu, does not appear to be experiencing withdrawal. Pt reports desire to discharge today, return home, micro dose Suboxone, and present to [facility] on 05/10 for Sublocade injection. Pt aware this needed to be discussed with Brittany Shepard APRN. Pt states I really just came here to get off the drugs. Pt denies questions or concerns for t/w. Discussed with Brittany Shepard APRN. Pt will not be a candidate for Sublocade injection on 05/10.
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
== END 2022-05-09 13:55 | disposition home or self-care (01) | DRG 750 ==
LOC: HO.ED 05-06 18:01 → HO.PADLT16 05-06 19:39
PROVIDERS: Admitting Provider Psychiatry & Neurology Psychiatry; Emergency Provider Emergency Medicine; Visit Provider Psychiatry & Neurology Psychiatry
DX: F25.1 Schizoaffective disorder, depressive type (principal); R45.851 Suicidal ideations; F43.10 Post-traumatic stress disorder, unspecified; F90.9 Attention-deficit hyperactivity disorder, unspecified type; F11.20 Opioid dependence, uncomplicated; F17.210 Nicotine dependence, cigarettes, uncomplicated; Z71.6 Tobacco abuse counseling; Z20.822 Contact with and (suspected) exposure to COVID-19; Z88.8 Allergy status to other drugs, medicaments and biological substances; Z79.899 Other long term (current) drug therapy
CPT/HCPCS: 36415; 80048; 80076; 80307; 82077; 85025; 87635; 93005; 99285; S9485

== ENCOUNTER → 2022-05-10 11:13 | Outpatient (BNVA) | payer OTHER, SELFPAY | PROVIDERS: Visit Provider Nurse Practitioner Psychiatric/Mental Health | DX: Z51.81 Encounter for therapeutic drug level monitoring (principal); F11.20 Opioid dependence, uncomplicated | CPT/HCPCS: 80305; 99212 ==

== ENCOUNTER → 2022-05-25 11:19 | Outpatient (BNVA) | payer OTHER, SELFPAY | DX: Z13.89 Encounter for screening for other disorder (principal) ==

== ENCOUNTER → 2022-05-26 11:17 | Outpatient (BNVA) | payer OTHER, SELFPAY | PROVIDERS: Visit Provider Nurse Practitioner Psychiatric/Mental Health | DX: F11.20 Opioid dependence, uncomplicated (principal) | CPT/HCPCS: 80305; 99212 ==

== ENCOUNTER → 2022-06-22 11:03 | Outpatient (BNVA) | payer OTHER, SELFPAY | PROVIDERS: Visit Provider Nurse Practitioner Psychiatric/Mental Health | DX: F11.20 Opioid dependence, uncomplicated (principal) | CPT/HCPCS: 99212 ==

== ENCOUNTER → 2022-07-08 11:51 | Outpatient (BNVA) | payer OTHER, SELFPAY | PROVIDERS: Visit Provider Nurse Practitioner Psychiatric/Mental Health | DX: F11.20 Opioid dependence, uncomplicated (principal); F14.20 Cocaine dependence, uncomplicated; F25.1 Schizoaffective disorder, depressive type; F43.0 Acute stress reaction; F42.9 Obsessive-compulsive disorder, unspecified; U07.0 Vaping-related disorder; F17.210 Nicotine dependence, cigarettes, uncomplicated; Z51.81 Encounter for therapeutic drug level monitoring | CPT/HCPCS: 80305; 99212 ==

== ENCOUNTER → 2022-08-12 11:03 | Outpatient (BNVA) | payer OTHER, SELFPAY | PROVIDERS: Visit Provider Nurse Practitioner Psychiatric/Mental Health | DX: F11.20 Opioid dependence, uncomplicated (principal); F10.20 Alcohol dependence, uncomplicated | CPT/HCPCS: 99212 ==

== ENCOUNTER → 2022-08-19 10:58 | Outpatient (BNVA) | payer OTHER, SELFPAY | PROVIDERS: Visit Provider Nurse Practitioner Psychiatric/Mental Health | DX: F11.20 Opioid dependence, uncomplicated (principal); F10.20 Alcohol dependence, uncomplicated; Z79.899 Other long term (current) drug therapy | CPT/HCPCS: 80305; 99212 ==

== ENCOUNTER → 2022-09-15 09:33 | Outpatient (BNVA) | payer OTHER, SELFPAY | PROVIDERS: Visit Provider Nurse Practitioner Psychiatric/Mental Health | DX: Z51.81 Encounter for therapeutic drug level monitoring (principal); F11.20 Opioid dependence, uncomplicated; F10.20 Alcohol dependence, uncomplicated; Z79.899 Other long term (current) drug therapy | CPT/HCPCS: 99212 ==

== ENCOUNTER 2022-10-14 01:24 | Inpatient (IN) | payer OTHER, SELFPAY ==
[2022-10-14 01:29] VITALS: BP 144/86; PULSE 92; RESP 18; TEMP 36.4; O2SAT 100; BMI 22.1
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
--- NOTE | 2022-10-14 02:28 | PC.NURSE ---
pt refused medication ordered. Notified Provider Dr. Mcfadden and PAPO [place].
[2022-10-14 02:44] LABS: MANUAL DIFF FLAG NO
--- NOTE | 2022-10-14 02:44 | PC.NURSE ---
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
[2022-10-14 02:45] LABS: Basophils Percent Auto 0.5 % (0-2); Eosinophils Absolute Auto 0.2 X10*3/uL (0.0-0.4); Eosinophils Percent Auto 2.8 % (0-4); Hemoglobin 12.5 g/dl (14.0-18.0); Imm Gran Abs Auto 0.01 X10*3/uL (0.00-0.03); Imm Gran Pct Auto 0.2 % (0.0-0.4); Lymphocytes Percent Auto 31.7 % (20-40); Mean Corpuscular HGB Conc 33.8 g/dl (31.0-36.0); Mean Corpuscular Hemoglobin 29.3 pg (27.0-33.0); Mean Corpuscular Volume 86.7 fL (80.0-98.0); Mean Platelet Volume 10.4 fL (9.4-12.4); Monocytes Absolute Auto 0.4 X10*3/uL (0.1-1.2); Monocytes Percent Auto 6.7 % (2-11); Neutrophils Absolute Auto 3.7 x10*3/uL (2.0-8.3); Neutrophils Percent Auto 58.1 % (45-73); Platelet Count 205 X10*3/uL (160-400); Red Blood Count 4.27 X10*6/uL (4.60-5.80); Red Cell Distribution Width 12.5 % (11.0-16.0); White Blood Count 6.4 X10*3/uL (4.8-10.8)
[2022-10-14 03:04] LABS: Alanine Aminotransferase 31 U/L (0-40); Albumin Level 3.8 g/dL (3.5-5.0); Alkaline Phosphatase 75 U/L (39-117); Anion Gap 15 (12-20); Aspartate Amino Transferase 33 U/L (5-37); Bilirubin Total 0.5 mg/dL (0.0-1.0); Blood Urea Nitrogen 23 mg/dL (9-16); Calcium 9.6 mg/dL (8.4-10.2); Carbon Dioxide 23 mmol/L (22-29); Chloride 110 mmol/L (96-108); Creatinine Clr Calc Pharmacy 151.7; Estimated Glomerular Filt Rate > 60; Glucose Random 98 mg/dL (60-115); Potassium 3.9 mmol/L (3.3-5.1); Sodium 144 mmol/L (135-145); Total Protein 6.9 g/dL (6.5-8.0)
[2022-10-14 04:19] VITALS: BP 138/83; PULSE 69; RESP 20; TEMP 36.4; O2SAT 96
--- NOTE | 2022-10-14 04:36 | PC.NURSE ---
1;[address] PT ASKED TO SPEAK TO THIS RN. WHEN THIS RN ENTERED THE ROOM PT REQUESTED THAT THIS RN GIVE A LETHAL INJECTION THIS RN EDUCATED PT THAT WE DO NOT DO THAT. PT AGREEABLE TO TRY PO 2MG ATIVAN. PT MEDICATED ACCORDING TO AUBREY
[2022-10-14 04:40] LABS: Amphetamine Screen Urine Not Detected (Not Detect); Barbiturates, Urine Not Detected (Not Detect); Benzodiazepines Screen Urine POSITIVE (Not Detect); Cannabinoid Screen Urine POSITIVE (Not Detect); Cocaine Screen Urine Not Detected (Not Detect); Fentanyl, urine POSITIVE (Not Detect); Opiate Screen Urine Not Detected (Not Detect); Phencyclidine Screen Urine Not Detected (Not Detect)
[2022-10-14 04:55] LABS: Ethanol < 10 mg/dL
--- NOTE | 2022-10-14 04:56 | PC.NURSE ---
Patient just got transferred from main ED, behavior loud and disruptive, med rec completed/pending providers approval, care consult ordered, pending evaluation, VSS, gait unsteady, will continue to monitor
[2022-10-14] MEDS: Buprenorphine/Naloxone 8/2 mg FILM 2 FILM SUBLINGUAL (06:12)
[2022-10-14] MEDS: Nicotine 21 MG PATCH.TD24 TRANSDERMA ×2 (06:12→08:16)
--- NOTE | 2022-10-14 07:45 | PC.NURSE ---
pt is a/o x 4 no sob/joselyn noted. speaks in full sentences. pt c/o l ankle pain and swelling. 2-3+ pitting edema noted. no open areas noted. pt c/o 7/10 pain to l ankle. pt is c/o hearing voices to harm self. pt is pacing hallway. aware.
[2022-10-14 07:58] VITALS: BP 112/80; PULSE 89; RESP 16; TEMP 36.8; O2SAT 100
[2022-10-14] MEDS: Sertraline HCL 100 MG TABLET 200 MG PO (08:14)
[2022-10-14] MEDS: Paliperidone ER 3 MG TAB.ER.24 PO (09:29)
--- NOTE | 2022-10-14 10:37 | PC.NURSE ---
pt is being seen by the care team, pt aware of plan of care.
--- NOTE | 2022-10-14 11:30 | PC.NURSE ---
pt 's mother at bedside. pt to ultrasound with security and mha.
[2022-10-14 11:32] LABS: Appearance Urine Clear; Color Urine Yellow; Glucose Urine UA Negative (Negative); Leukocyte Esterase Urine Negative (Negative); Nitrite Urine Negative (Negative); Specific Gravity - Urine 1.025 (1.005-1.025); Urine Blood Negative (Negative); Urine Ketones Negative (Negative); Urine Protein Negative (Neg-Trace)
[2022-10-14 11:36] LABS: Bacteria Urine None Seen (None Seen); Hyaline Casts Urine 0-2 /LPF (0-2); RBC Urine 0-2 /HPF (0-2); Squamous Epithelial Cell Urine 0-2 /HPF (0-2); WBC Urine 0-5 /HPF (0-5)
--- NOTE | 2022-10-14 18:06 | PC.NURSE ---
nurse to nurse completed and unsure what time they will be down to get the patient.
[2022-10-14 20:50] VITALS: BP 130/81; PULSE 100; RESP 18; TEMP 35.9; O2SAT 100
[2022-10-14 22:29] VITALS: BP 147/75; PULSE 107
[2022-10-14] MEDS: Prazosin HCL 1 MG CAPSULE 2 MG PO (22:31)
[2022-10-14 22:42] VITALS: BMI 21.2
--- NOTE | 2022-10-14 22:45 | PC.ADMIT ---
Jaswinder Villatoro is a 42yo male, admitted to the unit at 2039 from ED on CV for treatment of Schizoid-affective disorder, SI and substance use disorder. He was agitated and uncooperative, refusing to signed document or answer most question asked during admission process. He have history of suicidal attempt, opioid/ cannabis abuse and non medication compliance. He declined to sign authorization, said I don't know youand I will probabily sign it tomorrow. He have been [place]3, [place] [facility] [place] He denied having any medical condition or HI. Treatment plan initiated.
--- NOTE | 2022-10-15 00:04 | PC.NURSE ---
Pt sleeping peacefully. Breathing unlabored and easy. Did not wake to assess for CIWA.
--- NOTE | 2022-10-15 04:56 | PC.NURSE ---
Pt appears to sleep, 0400 CIWA not assessed.
[2022-10-15 06:00] VITALS: BP 119/67; PULSE 110; RESP 18; TEMP 36.6; O2SAT 99
[2022-10-15 08:08] LABS: Alanine Aminotransferase 30 U/L (0-40); Albumin Level 3.7 g/dL (3.5-5.0); Alkaline Phosphatase 81 U/L (39-117); Anion Gap 15 (12-20); Aspartate Amino Transferase 31 U/L (5-37); Bilirubin Total 0.8 mg/dL (0.0-1.0); Blood Urea Nitrogen 14 mg/dL (9-16); Calcium 9.9 mg/dL (8.4-10.2); Carbon Dioxide 24 mmol/L (22-29); Chloride 105 mmol/L (96-108); Cholesterol 124 mg/dL; Creatinine Clr Calc Pharmacy 145.6; Estimated Glomerular Filt Rate > 60; Glucose Fasting 103 mg/dL (60-99); HDL Cholesterol 62 mg/dL; LDL Cholesterol Calculated 52 mg/dl; Sodium 140 mmol/L (135-145); Total Protein 6.9 g/dL (6.5-8.0); Triglycerides 52 mg/dL
[2022-10-15] MEDS: Nicotine 21 MG PATCH.TD24 TRANSDERMA (08:08)
[2022-10-15] MEDS: Buprenorphine/Naloxone 8/2 mg FILM 2 FILM SUBLINGUAL (08:08)
[2022-10-15] MEDS: Sertraline HCL 100 MG TABLET 200 MG PO (08:09)
[2022-10-15] MEDS: Paliperidone ER 3 MG TAB.ER.24 PO (08:09)
[2022-10-15 08:25] LABS: Free T4 (Free Thyroxine) 1.03 ng/dL (0.71-1.85); Thyroid Stimulating Hormone 2.45 uIU/mL (0.32-4.0)
[2022-10-15] MEDS: Acetaminophen 325 MG TABLET 650 MG PO (11:29)
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
[2022-10-15 20:25] VITALS: BP 129/71; PULSE 99; RESP 18; TEMP 35.7; O2SAT 99
[2022-10-15 21:35] VITALS: BP 139/87; TEMP 36.3
[2022-10-15] MEDS: Prazosin HCL 1 MG CAPSULE 2 MG PO (21:42)
--- NOTE | 2022-10-15 22:17 | PC.NURSE ---
Jaswinder is pleasant and cooperative upon approach. he is visible on the unit with no behavioral concerns, he c/o withdrawal symptoms and received 1mg of Ativan st approximately 2029 with positive effect. he denies suicidal/homicidal ideation, auditory/visual hallucinations he endorses depression 09/17 and anxiety 11/17. monitor for safety, continue Plan of Care
[2022-10-16 08:28] VITALS: BP 122/73; PULSE 101; RESP 16; TEMP 36.4; O2SAT 99
[2022-10-16] MEDS: Nicotine 21 MG PATCH.TD24 TRANSDERMA (08:30)
[2022-10-16] MEDS: Sertraline HCL 100 MG TABLET 200 MG PO (08:31)
[2022-10-16] MEDS: Paliperidone ER 3 MG TAB.ER.24 PO (08:32)
[2022-10-16] MEDS: Buprenorphine/Naloxone 8/2 mg FILM 2 FILM SUBLINGUAL (08:32)
[2022-10-16] MEDS: Acetaminophen 325 MG TABLET 650 MG PO ×2 (09:05→15:47)
[2022-10-16 13:50] VITALS: BP 133/90; PULSE 99; RESP 18; TEMP 36.7; O2SAT 99
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
[2022-10-16 19:27] VITALS: BP 138/82; PULSE 96; RESP 18; TEMP 36.7; O2SAT 99
[2022-10-16] MEDS: Prazosin HCL 1 MG CAPSULE 2 MG PO (20:44)
[2022-10-17 06:00] VITALS: BP 129/84; PULSE 103; TEMP 36.7; O2SAT 98
[2022-10-17] MEDS: Sertraline HCL 100 MG TABLET 200 MG PO (08:47)
[2022-10-17] MEDS: Paliperidone ER 3 MG TAB.ER.24 PO (08:47)
[2022-10-17] MEDS: LORazepam 1 MG TABLET PO ×2 (08:48→20:26)
[2022-10-17] MEDS: Buprenorphine/Naloxone 8/2 mg FILM 2 FILM SUBLINGUAL (09:30)
[2022-10-17] MEDS: Nicotine 21 MG PATCH.TD24 TRANSDERMA (09:30)
[2022-10-17 13:22] VITALS: BP 129/84; PULSE 103; O2SAT 98
--- NOTE | 2022-10-17 15:01 | MHC.RECOVRN ---
Briefly met with pt after Addiction Medicine consult placed that pt interested in receiving Sublocade as soon as possible. Pt has visitor so interaction was brief. Pt currently taking 16 mg Suboxone daily. Pt does have Sublocade injection available through the [facility]. Plan for pt to discharge from and go directly to [facility] to receive injection prior to next placement. Pt agreeable. SW aware.
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
[2022-10-17 20:25] VITALS: BP 171/95; PULSE 116; RESP 18; TEMP 36.8; O2SAT 99
[2022-10-17] MEDS: Prazosin HCL 1 MG CAPSULE 2 MG PO (20:26)
[2022-10-17] MEDS: traZODone HCL 50 MG TABLET PO (21:40)
[2022-10-18] MEDS: Paliperidone ER 3 MG TAB.ER.24 PO (08:22)
[2022-10-18] MEDS: Acetaminophen 325 MG TABLET 650 MG PO (08:22)
[2022-10-18] MEDS: LORazepam 1 MG TABLET PO (08:22)
[2022-10-18] MEDS: Sertraline HCL 100 MG TABLET 200 MG PO (08:22)
[2022-10-18 08:27] VITALS: BP 111/65; PULSE 116; RESP 18; TEMP 36.3; O2SAT 100
[2022-10-18] MEDS: Buprenorphine/Naloxone 8/2 mg FILM 2 FILM SUBLINGUAL (08:37)
[2022-10-18] MEDS: Nicotine 21 MG PATCH.TD24 TRANSDERMA (08:37)
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
[2022-10-18] MEDS: hydrOXYzine HCL 50 MG TABLET PO ×2 (12:00→23:55)
[2022-10-18 20:35] VITALS: BP 121/77; PULSE 113; RESP 16; TEMP 36.4; O2SAT 98
[2022-10-18] MEDS: traZODone HCL 50 MG TABLET PO ×2 (20:48→23:55)
[2022-10-18] MEDS: Prazosin HCL 1 MG CAPSULE 2 MG PO (20:48)
[2022-10-19 06:00] VITALS: BP 150/72; PULSE 102; RESP 16; TEMP 36.3; O2SAT 98
[2022-10-19] MEDS: Nicotine 21 MG PATCH.TD24 TRANSDERMA (08:03)
[2022-10-19] MEDS: Acetaminophen 325 MG TABLET 650 MG PO (08:03)
[2022-10-19] MEDS: Sertraline HCL 100 MG TABLET 200 MG PO (08:03)
[2022-10-19] MEDS: Buprenorphine/Naloxone 8/2 mg FILM 2 FILM SUBLINGUAL (08:03)
[2022-10-19] MEDS: Paliperidone ER 3 MG TAB.ER.24 PO (08:04)
== END 2022-10-19 11:17 | disposition home or self-care (01) | DRG 751 ==
LOC: HO.ED 04:51 → HO.PADLT16 18:44
PROVIDERS: Emergency Medicine Emergency Medical Services; Admitting Provider Psychiatry & Neurology Psychiatry; Emergency Provider Internal Medicine; Visit Provider Psychiatry & Neurology Psychiatry
DX: F33.1 Major depressive disorder, recurrent, moderate (principal); R45.851 Suicidal ideations; F10.20 Alcohol dependence, uncomplicated; F11.20 Opioid dependence, uncomplicated; F90.9 Attention-deficit hyperactivity disorder, unspecified type; Z20.822 Contact with and (suspected) exposure to COVID-19; Z79.899 Other long term (current) drug therapy
CPT/HCPCS: 36415; 72040; 73590; 73620; 80053; 80061; 80307; 81001; 82607; 82746; 83036; 84439; 84443; 85025; 87635; 93005; 93971; 97162; 99285; S9485

== ENCOUNTER → 2022-10-14 18:39 | Outpatient (BNV) | payer OTHER, SELFPAY | PROVIDERS: Admitting Provider Psychiatry & Neurology Psychiatry; Emergency Provider Internal Medicine; Visit Provider Psychiatry & Neurology Psychiatry | DX: F10.20 Alcohol dependence, uncomplicated (principal); F11.20 Opioid dependence, uncomplicated; F33.1 Major depressive disorder, recurrent, moderate | CPT/HCPCS: 90792; 99232; 99239 ==

== ENCOUNTER 2022-10-19 10:53 | Outpatient (AMB) | payer OTHER, SELFPAY ==
--- NOTE | 2022-10-19 10:59 | MHC.OFFVIS ---
Intake Vital Signs 10/19/22 11:07 BP 118/78 Blood Pressure Location Lt radial Position Sitting Pulse 86 Pulse Source Pulse Oximeter Pulse Oximetry (%) 99 Oxygen Delivery Method Room Air Intake Visit Reasons: BUP INJ Intake Note: The patient presents for a bup inj Health Equipment Servicer Required: No Allergies tomato [Tomato] Allergy (Severe, Verified 10/19/22 10:59) DIFFICULTY BREATHING, swelling of face and throat divalproex sodium [From Depakote] Allergy (Mild, Verified 10/19/22 10:59) SEIZURES olanzapine [From Zyprexa] Allergy (Mild, Verified 10/19/22 10:59) NIPPLES LEAK risperidone [From Risperdal] Allergy (Mild, Verified 10/19/22 10:59) UNKNOWN quetiapine [From SEROQUEL] Allergy (Unknown, Verified 10/19/22 10:59) HEART PALPITATIONS lithium [[place]] Adverse Reaction (Mild, Verified 10/19/22 10:59) STOMACH PAIN aripiprazole [From ABILIFY] Adverse Reaction (Unknown, Verified 10/19/22 10:59) DYSTONIA Do you need a note to return to daycare/school/sports/work: No HPI BUP INJ HPI Details Patient presents for follow-up and Sublocade injection. Patient was admitted to Behavioral Health Unit and discharged prior to appointment. Behavioral health notes reviewed. Patient familiar with injection as he has received in the past. Reporting that he would like to continue with 300 mg as he feels that previous recurrence of use was when dose was decreased to 100 mg. Patient expressing motivation to continue treatment and be with his family again. Will be going to respite. Requesting to come to office every week and check in. [facility] Medical History Cocaine use disorder Cocaine use disorder Hepatitis C HTN (hypertension) OCD (obsessive compulsive disorder) Opioid use disorder, severe, dependence Panic anxiety syndrome Post traumatic stress disorder (PTSD) Schizoaffective disorder, depressive type Surgical History No pertinent past surgical history Social History Household Members: None Household Members Other:: lives alone Housing: Unknown / Unable to assess Do you presently have visiting nurse or other home services: No Unable to assess alcohol history related to: Unknown Alcohol intake: never Patient Tobacco Use Status: Tobacco use Unknown Tobacco use type: Cigarette Cigarette Packs Per Day: 1 Cigarettes Per Day: 20.0 Years Smoked: 30 e-Cigarette/Vaping Use: Currently Using Second Hand Smoke Exposure: No Substance Use Type: Heroin, Marijuana and Opiates service: No Sexual orientation: Straight/Heterosexual Review of Systems Const Reports as per HPI and Reports no additional complaints Physical Exam Vital Signs: Last Vital Signs Pulse 86 10/19/22 11:07 BP 118/78 10/19/22 11:07 Pulse Ox 99 10/19/22 11:07 Oxygen Delivery Method Room Air 10/19/22 11:07 Const General: cooperative, no acute distress, well groomed and other (Very thin) Psych Appearance: well kempt Speech and movement: Clear speech present Affect: normal affect Attitude: cooperative Thought process: Normal thought process present Thought content: Normal thought content present Insight: Fair insight present (Psych) Judgement: Good judgement present (Psych) Office Meds Sublocade ER Performing Provider: Brittany Shepard CNP Administered by: Maile Burt on 10/19/22 11:15 Dose Route Admin Location Lot Number Expiration Date NDC Board Certified Family Physician 300 mg subcut LLQ [id number] 06/09/23 [address]-6 [employer] Comments: Pt tolerated injection well. Educated on signs/symptoms of infection, encouraged to call the [facility] with questions or concerns. Results AMB 14 Panel Urine Drug Screen Urine Marijuana (THC) Positive Last Edit by Katina Negrete CMA on 10/19/22 11:09 Urine Cocaine Negative Last Edit by Katina Negrete CMA on 10/19/22 11:09 Urine Morphine Negative Last Edit by Katina Negrete CMA on 10/19/22 11:09 Urine Methamphetamine Negative Last Edit by Katina Negrete CMA on 10/19/22 11:09 Urine Amphetamine Negative Last Edit by Katina Negrete CMA on 10/19/22 11:09 Urine Benzodiazepine Positive Last Edit by Katina Negrete CMA on 10/19/22 11:09 Urine Barbiturates Negative Last Edit by Katina Negrete CMA on 10/19/22 11:09 Urine Methadone Negative Last Edit by Katina Negrete CMA on 10/19/22 11:09 Urine Buprenorphine Positive Last Edit by Katina Negrete CMA on 10/19/22 11:09 Urine Tricyclic Antidepressant Negative Last Edit by Katina Negrete CMA on 10/19/22 11:09 Urine MDMA Negative Last Edit by Katina Negrete CMA on 10/19/22 11:09 Urine Oxycodone Negative Last Edit by Katina Negrete CMA on 10/19/22 11:09 Urine Phencyclidine Negative Last Edit by Katina Negrete CMA on 10/19/22 11:09 Urine Propoxyphene Negative Last Edit by Katina Negrete CMA on 10/19/22 11:09 Results Reviewed Results Reviewed: Laboratory Last Values POC Urine Buprenorphine Positive 10/19/22 11:00 POC Urine Morphine Negative 10/19/22 11:00 POC Urine Oxycodone Negative 10/19/22 11:00 POC Urine Methadone Negative 10/19/22 11:00 POC Urine Propoxyphene Negative 10/19/22 11:00 POC Urine Barbiturates Negative 10/19/22 11:00 POC U Tricyclic Antidpr Negative 10/19/22 11:00 POC Urine PCP Negative 10/19/22 11:00 POC Ur Amphetamines Negative 10/19/22 11:00 POC Ur Methamphetamine Negative 10/19/22 11:00 POC Urine MDMA Negative 10/19/22 11:00 POC Ur Benzodiazepine Positive 10/19/22 11:00 POC Urine Cocaine Negative 10/19/22 11:00 POC Ur Marijuana (THC) Positive 10/19/22 11:00 Assessment & Plan Assessment & Plan (1) Opioid use disorder, severe, dependence: Code(s): F11.20 - Opioid dependence, uncomplicated Plan: Tolerated injection Relapse prevention discussion Will follow-up in 1 week to see PAPO dodson to address alcohol cravings Orders: Orders Fentanyl, urine 10/19/22 F11.20 - Opioid dependence, uncomplicated AMB Buprenorphine Injection - Patient Supplied 10/19/22 F11.20 - Opioid dependence, uncomplicated AMB 14 Panel Urine Drug Screen 10/19/22 Z51.81 - Encounter for therapeutic drug level monitoring Medications: New buprenorphine ER (Sublocade) once every 28 days 300 mg (1.5 mL) subcut ONCE 1.5 mL 0RF acamprosate 666 mg (2 x 333 mg) PO TID 180 tabs 2RF nicotine 1 patch transdermal Q24H 28 ea 0RF Coding Level of Care Code Est Pt Level 3 (84620) Diagnoses Opioid use disorder, severe, dependence F11.20
[2022-10-19 11:07] VITALS: BP 118/78; PULSE 86; O2SAT 99
== END 2022-10-19 13:17 | disposition home or self-care (01) ==
LOC: HO.HCC 10:53
PROVIDERS: Visit Provider Nurse Practitioner Psychiatric/Mental Health
DX: Z51.81 Encounter for therapeutic drug level monitoring (principal); F11.20 Opioid dependence, uncomplicated
CPT/HCPCS: 99213; Q9992

== ENCOUNTER 2022-10-19 10:53 | Outpatient (REF) | payer OTHER, SELFPAY ==
[2022-10-19 14:22] LABS: Fentanyl, urine POSITIVE (Not Detect)
== END 2022-10-19 10:54 | disposition home or self-care (01) ==
LOC: HO.LAB 10:53
PROVIDERS: Visit Provider Nurse Practitioner Psychiatric/Mental Health
DX: F11.20 Opioid dependence, uncomplicated (principal); Z51.81 Encounter for therapeutic drug level monitoring
CPT/HCPCS: 80305; 80307; 96372; 99212

== ENCOUNTER 2022-10-26 13:57 | Outpatient (AMB) | payer OTHER, SELFPAY ==
--- NOTE | 2022-10-26 13:58 | MHC.OFFVIS ---
Intake Intake Visit Reasons: MAT visit Intake Note: THE PATIENT PRESENTS FOR A MAT VISIT Medical Technologist Clinical Required: No Allergies tomato [Tomato] Allergy (Severe, Verified 10/26/22 14:02) DIFFICULTY BREATHING, swelling of face and throat divalproex sodium [From Depakote] Allergy (Mild, Verified 10/26/22 14:02) SEIZURES olanzapine [From Zyprexa] Allergy (Mild, Verified 10/26/22 14:02) NIPPLES LEAK risperidone [From Risperdal] Allergy (Mild, Verified 10/26/22 14:02) UNKNOWN quetiapine [From SEROQUEL] Allergy (Unknown, Verified 10/26/22 14:02) HEART PALPITATIONS lithium [[place]] Adverse Reaction (Mild, Verified 10/26/22 14:02) STOMACH PAIN aripiprazole [From ABILIFY] Adverse Reaction (Unknown, Verified 10/26/22 14:02) DYSTONIA PFSH Medical History Cocaine use disorder Cocaine use disorder Hepatitis C HTN (hypertension) OCD (obsessive compulsive disorder) Opioid use disorder, severe, dependence Panic anxiety syndrome Post traumatic stress disorder (PTSD) Schizoaffective disorder, depressive type Surgical History No pertinent past surgical history Social History Household Members: None Household Members Other:: lives alone Housing: Unknown / Unable to assess Do you presently have visiting nurse or other home services: No Unable to assess alcohol history related to: Unknown Alcohol intake: never Patient Tobacco Use Status: Tobacco use Unknown Tobacco use type: Cigarette Cigarette Packs Per Day: 1 Cigarettes Per Day: 20.0 Years Smoked: 30 e-Cigarette/Vaping Use: Currently Using Second Hand Smoke Exposure: No Substance Use Type: Heroin, Marijuana and Opiates service: No Sexual orientation: Straight/Heterosexual Assessment & Plan Assessment & Plan Orders: Orders AMB 14 Panel Urine Drug Screen Today Z51.81 - Encounter for therapeutic drug level monitoring Coding Diagnoses
[2022-10-26 14:10] VITALS: BP 114/78; PULSE 110; O2SAT 97
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
== END 2022-10-26 14:52 | disposition home or self-care (01) ==
LOC: HO.HCC 13:57
DX: Z51.81 Encounter for therapeutic drug level monitoring (principal)

== ENCOUNTER → 2022-10-26 13:57 | Outpatient (BNVA) | payer OTHER, SELFPAY | DX: Z51.81 Encounter for therapeutic drug level monitoring (principal); Z79.899 Other long term (current) drug therapy | CPT/HCPCS: 80305 ==

== ENCOUNTER 2022-11-04 13:52 | Outpatient (AMB) | payer OTHER, SELFPAY ==
--- NOTE | 2022-11-04 13:53 | MHC.OFFVIS ---
Intake Vital Signs 11/04/22 13:57 BP 110/72 Blood Pressure Location Lt radial Position Sitting Pulse 84 Pulse Source Pulse Oximeter Pulse Oximetry (%) 98 Oxygen Delivery Method Room Air Intake Visit Reasons: MAT visit Intake Note: the patient presnts for a mat visit Media Job Titles Required: No Allergies tomato [Tomato] Allergy (Severe, Verified 11/04/22 13:58) DIFFICULTY BREATHING, swelling of face and throat divalproex sodium [From Depakote] Allergy (Mild, Verified 11/04/22 13:58) SEIZURES olanzapine [From Zyprexa] Allergy (Mild, Verified 11/04/22 13:58) NIPPLES LEAK risperidone [From Risperdal] Allergy (Mild, Verified 11/04/22 13:58) UNKNOWN quetiapine [From SEROQUEL] Allergy (Unknown, Verified 11/04/22 13:58) HEART PALPITATIONS lithium [[place]] Adverse Reaction (Mild, Verified 11/04/22 13:58) STOMACH PAIN aripiprazole [From ABILIFY] Adverse Reaction (Unknown, Verified 11/04/22 13:58) DYSTONIA Do you need a note to return to daycare/school/sports/work: No HPI MAT visit HPI Details Patient presents for GEORGE follow up Still having mild withdrawal sx, well managed with prn films Reporting that he continues to abstain from alcohol and substance use Has stopped campral, did not like the way it made him feel Psychiatrist appt on December 18 Therapist at [facility] Motor Coach 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 will start attending meetings together when he returns from vacation [facility] Medical History (Updated 10/27/22 @ 00:03 by Benjy Schmitt) Cocaine use disorder Cocaine use disorder Hepatitis C HTN (hypertension) OCD (obsessive compulsive disorder) Opioid use disorder, severe, dependence Panic anxiety syndrome Post traumatic stress disorder (PTSD) Schizoaffective disorder, depressive type Surgical History No pertinent past surgical history Social History Household Members: None Household Members Other:: lives alone Housing: Unknown / Unable to assess Do you presently have visiting nurse or other home services: No Unable to assess alcohol history related to: Unknown Alcohol intake: never Patient Tobacco Use Status: Tobacco use Unknown Tobacco use type: Cigarette Cigarette Packs Per Day: 1 Cigarettes Per Day: 20.0 Years Smoked: 30 e-Cigarette/Vaping Use: Currently Using Second Hand Smoke Exposure: No Substance Use Type: Heroin, Marijuana and Opiates service: No Sexual orientation: Straight/Heterosexual Review of Systems Const Reports as per HPI and Reports no additional complaints Physical Exam Vital Signs: Last Vital Signs Pulse 84 11/04/22 13:57 BP 110/72 11/04/22 13:57 Pulse Ox 98 11/04/22 13:57 Oxygen Delivery Method Room Air 11/04/22 13:57 Const General: cooperative, no acute distress, well groomed and other (Very thin) Psych Appearance: well kempt Speech and movement: Clear speech present Affect: normal affect Attitude: cooperative Thought process: Normal thought process present Thought content: Normal thought content present Insight: Fair insight present (Psych) Judgement: Good judgement present (Psych) Assessment & Plan Assessment & Plan (1) Opioid use disorder, severe, dependence: Code(s): F11.20 - Opioid dependence, uncomplicated Plan: continue supplemental suboxone as needed for breakthrough withdrawal sx follow up one week (2) Alcohol use disorder, severe, dependence: Code(s): F10.20 - Alcohol dependence, uncomplicated Plan: relapse prevention discussion Medications: Changed From buprenorphine-naloxone 8-2 mg (Suboxone) 1 film buccal DAILY PRN 2 ea 0RF breakthrough opiate withdrawl To buprenorphine-naloxone 8-2 mg (Suboxone) 1 film sublingual DAILY PRN 10 ea 0RF breakthrough opiate withdrawl Discontinued acamprosate Discontinued Reason: Patient no longer taking 666 mg (2 x 333 mg) PO TID 180 tabs 2RF Coding Level of Care Code Est Pt Level 3 (46812) Diagnoses Opioid use disorder, severe, dependence F11.20 Alcohol use disorder, severe, dependence F10.20
[2022-11-04 13:57] VITALS: BP 110/72; PULSE 84; O2SAT 98
== END 2022-11-04 14:29 | disposition home or self-care (01) ==
LOC: HO.HCC 13:53
PROVIDERS: Visit Provider Nurse Practitioner Psychiatric/Mental Health
DX: F11.20 Opioid dependence, uncomplicated (principal); F10.20 Alcohol dependence, uncomplicated
CPT/HCPCS: 99213

== ENCOUNTER → 2022-11-04 13:52 | Outpatient (BNVA) | payer OTHER, SELFPAY | PROVIDERS: Visit Provider Nurse Practitioner Psychiatric/Mental Health | DX: F11.20 Opioid dependence, uncomplicated (principal); F14.20 Cocaine dependence, uncomplicated; F12.20 Cannabis dependence, uncomplicated; B19.20 Unspecified viral hepatitis C without hepatic coma; Z51.81 Encounter for therapeutic drug level monitoring; Z79.899 Other long term (current) drug therapy | CPT/HCPCS: 99212 ==

== ENCOUNTER 2022-12-16 13:33 | Outpatient (AMB) | payer OTHER, SELFPAY ==
--- NOTE | 2022-12-16 13:37 | A.OFFVIS_ITS ---
Intake Vital Signs 12/16/22 13:49 BP 128/74 Blood Pressure Location Lt radial Position Sitting Pulse 85 Pulse Source Pulse Oximeter Pulse Oximetry (%) 96 Oxygen Delivery Method Room Air Intake Visit Reasons: mat visit Intake Note: The patient presents for a mat visit Manager Hospice Required: No Allergies tomato [Tomato] Allergy (Severe, Verified 12/16/22 13:37) DIFFICULTY BREATHING, swelling of face and throat divalproex sodium [From Depakote] Allergy (Mild, Verified 12/16/22 13:37) SEIZURES olanzapine [From Zyprexa] Allergy (Mild, Verified 12/16/22 13:37) NIPPLES LEAK risperidone [From Risperdal] Allergy (Mild, Verified 12/16/22 13:37) UNKNOWN quetiapine [From SEROQUEL] Allergy (Unknown, Verified 12/16/22 13:37) HEART PALPITATIONS lithium [[place]] Adverse Reaction (Mild, Verified 12/16/22 13:37) STOMACH PAIN aripiprazole [From ABILIFY] Adverse Reaction (Unknown, Verified 12/16/22 13:37) DYSTONIA Do you need a note to return to daycare/school/sports/work: No HPI mat visit HPI Details Patient presents for follow-up and Sublocade injection Eyelids appearing quite heavy, inquired if patient had recently use any substances. Patient reports that he had smoked a lot of marijuana prior to his appointment and took 1 of his Ativan. Reports that he continues to do well with recovery and has abstained from both opiates and alcohol. [facility] Medical History (Updated 10/27/22 @ 00:03 by Benjy Schmitt) Hepatitis C Cocaine use disorder Schizoaffective disorder, depressive type Opioid use disorder, severe, dependence Cocaine use disorder Panic anxiety syndrome OCD (obsessive compulsive disorder) Post traumatic stress disorder (PTSD) HTN (hypertension) Surgical History No pertinent past surgical history Social History Household Members: None Household Members Other:: lives alone Housing: Unknown / Unable to assess Do you presently have visiting nurse or other home services: No Unable to assess alcohol history related to: Unknown Alcohol intake: never Patient Tobacco Use Status: Tobacco use Unknown Tobacco use type: Cigarette Cigarette Packs Per Day: 1 Cigarettes Per Day: 20.0 Years Smoked: 30 e-Cigarette/Vaping Use: Currently Using Second Hand Smoke Exposure: No Substance Use Type: Heroin, Marijuana and Opiates service: No Sexual orientation: Straight/Heterosexual Review of Systems Const Reports as per HPI and Reports no additional complaints Physical Exam Vital Signs: Last Vital Signs Pulse 85 12/16/22 13:49 BP 128/74 12/16/22 13:49 Pulse Ox 96 12/16/22 13:49 Oxygen Delivery Method Room Air 12/16/22 13:49 Const General: cooperative, awake, tired appearing and well groomed Office Meds Sublocade 300 mg/1.5 mL solution,extended release subcutaneous syringe Performing Provider: Brittany Shepard CNP Performing Location: [facility] Administered by: Liset Martinez RN on 12/16/22 15:43 Dose Route Admin Location Dispensed Lot Number Expiration Date NDC Buttonhole Machine Operator 300 mg subcut RLQ 1.5 mL [id number] 05/09/24 [address]-8 [employer]. Comments: T/W assessed for s/s of infection, none noted, no pain, no swelling, no discharge, no redness, no fever. Pt reminded to monitor for above and call the [facility]. Pt tolerated injection. Results AMB 14 Panel Urine Drug Screen Urine Marijuana (THC) Positive Last Edit by Katina Negrete CMA on 12/16/22 13:51 Urine Cocaine Negative Last Edit by Katina Negrete CMA on 12/16/22 13:51 Urine Morphine Negative Last Edit by Katina Negrete CMA on 12/16/22 13:51 Urine Methamphetamine Negative Last Edit by Katina Negrete CMA on 12/16/22 13:51 Urine Amphetamine Negative Last Edit by Katina Negrete CMA on 12/16/22 13:5 1 Urine Benzodiazepine Negative Last Edit by Katina Negrete CMA on 12/16/22 13:51 Urine Barbiturates Negative Last Edit by Katina Negrete CMA on 12/16/22 13: 51 Urine Methadone Negative Last Edit by Katina Negrete CMA on 12/16/22 13:51 Urine Buprenorphine Positive Last Edit by Katina Negrete CMA on 12/16/22 13 :51 Urine Tricyclic Antidepressant Positive Last Edit by Katina Negrete CMA on 12/16/22 13:51 Urine MDMA Negative Last Edit by Katina Negrete CMA on 12/16/22 13:51 Urine Oxycodone Negative Last Edit by Katina Negrete CMA on 12/16/22 13:51 Urine Phencyclidine Negative Last Edit by Katina Negrete CMA on 12/16/22 13 :51 Urine Propoxyphene Negative Last Edit by Katina Negrete CMA on 12/16/22 13: 51 Results Reviewed Results Reviewed: Laboratory Last Values POC Urine Buprenorphine Positive 12/16/22 13:38 POC Urine Morphine Negative 12/16/22 13:38 POC Urine Oxycodone Negative 12/16/22 13:38 POC Urine Methadone Negative 12/16/22 13:38 POC Urine Propoxyphene Negative 12/16/22 13:38 POC Urine Barbiturates Negative 12/16/22 13:38 POC U Tricyclic Antidpr Positive 12/16/22 13:38 POC Urine PCP Negative 12/16/22 13:38 POC Ur Amphetamines Negative 12/16/22 13:38 POC Ur Methamphetamine Negative 12/16/22 13:38 POC Urine MDMA Negative 12/16/22 13:38 POC Ur Benzodiazepine Negative 12/16/22 13:38 POC Urine Cocaine Negative 12/16/22 13:38 POC Ur Marijuana (THC) Positive 12/16/22 13:38 Assessment & Plan Assessment & Plan (1) Opioid use disorder, severe, dependence: Code(s): F11.20 - Opioid dependence, uncomplicated Plan: * Tolerated injection * Follow-up 4 weeks * Risk reduction discussion Orders: Orders AMB Buprenorphine Injection - Patient Supplied 12/16/22 F11.20 - Opioid dep endence, uncomplicated AMB 14 Panel Urine Drug Screen 12/16/22 Z51.81 - Encounter for therapeutic drug level monitoring Coding Level of Care Code Est Pt Level 3 (38191) Diagnoses Opioid use disorder, severe, dependence F11.20
[2022-12-16 13:49] VITALS: BP 128/74; PULSE 85; O2SAT 96
== END 2022-12-16 14:21 | disposition home or self-care (01) ==
PROVIDERS: Visit Provider Nurse Practitioner Psychiatric/Mental Health
DX: F11.20 Opioid dependence, uncomplicated (principal)
CPT/HCPCS: 99213; Q9992

== ENCOUNTER → 2022-12-16 13:33 | Outpatient (BNVA) | payer OTHER, SELFPAY | PROVIDERS: Visit Provider Nurse Practitioner Psychiatric/Mental Health | DX: F11.20 Opioid dependence, uncomplicated (principal) | CPT/HCPCS: 80305; 96372; 99212 ==

== ENCOUNTER 2023-01-21 21:48 | Emergency (ER) | payer OTHER, SELFPAY ==
[2023-01-21 22:48] VITALS: BP 136/89; PULSE 88; RESP 16; TEMP 36.2; O2SAT 100; BMI 23.0
--- NOTE | 2023-01-22 00:25 | ED_ITS ---
HPI - General Adult General Chief complaint: General Medical Stated complaint: Parasites (?), fever, confusion Time Seen by Provider: 01/22/23 00:25 Source: patient Mode of arrival: ambulatory Limitations: no limitations History of Present Illness HPI narrative: 42-year-old male who presents emergency department for evaluation of parasites under his skin patient states that he has noticed parasites for at least 5 days. He states that he has been picking out the parasites under his skin and that his girlfriend who is also a patient here had similar parasites under her skin. Patient states that he was eating a donut at [employer] awake cut into the donated was filled with parasites. Related Data Home Medications Medication Instructions Recorded Confirmed prazosin 1 mg capsule 2 mg PO BEDTIME 10/14/22 10/14/22 sertraline 100 mg tablet 200 mg PO DAILY 10/14/22 10/14/22 Previous Rx's Medication Instructions Recorded hydroxyzine HCl 50 mg tablet 50 mg PO BID PRN Anxiety 30 days 10/18/22 #60 tabs paliperidone 3 mg tablet,extended 3 mg PO DAILY 30 days #30 tabs 10/18/22 release 24 hr prazosin 1 mg capsule 1 mg PO BID PRN anxiety/insomnia 10/18/22 30 days #60 caps nicotine 14 mg/24 hr daily 1 patch transdermal Q24H #28 ea 10/19/22 transdermal patch trazodone 100 mg tablet See Rx Instructions .Route 10/20/22 .COMPLEX PRN insomnia 30 days #30 tabs buprenorphine 8 mg-naloxone 2 mg 1 film sublingual BID PRN 12/07/22 sublingual film (Suboxone) breakthrough opiate withdrawl #12 ea buprenorphine 300 mg/1.5 mL 300 mg (1.5 mL) subcut ONCE #1.5 mL 01/04/23 solution,exten.rel.subcutaneous syringe (Sublocade) Allergies Allergy/AdvReac Type Severity Reaction Status Date / Time tomato [Tomato] Allergy Severe DIFFICULTY Verified 12/16/22 13:37 BREATHING, swelling of face and throat divalproex sodium Allergy Mild SEIZURES Verified 12/16/22 13:37 [From Depakote] olanzapine [From Zyprexa] Allergy Mild NIPPLES Verified 12/16/22 13:37 LEAK risperidone [From Risperdal] Allergy Mild UNKNOWN Verified 12/16/22 13:37 quetiapine [From SEROQUEL] Allergy Unknown HEART Verified 12/16/22 13:37 PALPITATIONS lithium [[place]] AdvReac Mild STOMACH Verified 12/16/22 13:37 PAIN aripiprazole [From ABILIFY] AdvReac Unknown DYSTONIA Verified 12/16/22 13:37 Review of Systems Review of Systems: Yes all other systems are reviewed and are negative [facility] Past Medical History [facility] Narrative: Social history: Patient does smoke cigarettes. Denies alcohol use. He states that is in recovery and is a former heroin user. Patient is seen by addiction medicine and was last seen 12/16/2022 Medical History Hepatitis C Cocaine use disorder Schizoaffective disorder, depressive type Opioid use disorder, severe, dependence Cocaine use disorder Panic anxiety syndrome OCD (obsessive compulsive disorder) Post traumatic stress disorder (PTSD) HTN (hypertension) Surgical History No pertinent past surgical history Social History Social History Household Members: None Household Members Other:: lives alone Housing: Unknown / Unable to assess Do you presently have visiting nurse or other home services: No Unable to assess alcohol history related to: Unknown Alcohol intake: never Patient Tobacco Use Status: Tobacco use Unknown Tobacco use type: Cigarette Cigarette Packs Per Day: 1 Cigarettes Per Day: 20.0 Years Smoked: 30 e-Cigarette/Vaping Use: Currently Using Second Hand Smoke Exposure: No Substance Use Type: Heroin, Marijuana and Opiates Advance Directives: No Advance Directives Information Provided: Yes service: No Sexual orientation: Straight/Heterosexual Physical Exam ED Vital Signs: Vital Signs - 24 hr 01/21/23 22:48 Temperature 97.2 F Pulse Rate 88 Respiratory Rate 16 Blood Pressure 136/89 Pulse Oximetry 100 Oxygen Delivery Method Room Air BMI result Body Mass Index 23.0 Vital signs were normal Exam: General: Awake, alert in no distress Skin: Patient has multiple excoriated lesions in areas of his skin where he has picked out parasites Medical Decision Making Medical Decision Making MDM Narrative: 42-year-old male with history of hepatitis-C, cocaine use, schizoaffective disorder, opiate use disorder, panic/anxiety attack, obsessive-compulsive disorder PTSD, hypertension who presents emergency department for evaluation of 5 days of paresis under his skin. Patient's exam did reveal multiple areas on his skin where he has dug under his skin to remove parasites. 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 He became upset and he and his girlfriend left emergency department before they can get discharge instructions. Differential Diagnosis Differential Diagnoses: The differential diagnosis associated with the presentation includes Differential diagnosis includes was not limited to the initial parasitosis, drug use, anxiety Discharge Plan Discharge Clinical Impression: Delusions of parasitosis, Anxiety Patient Disposition: Home, Self-Care Additional Instructions: At this time, I do not believe that you have parasites under your skin and your experiencing delusional parasitosis This can sometimes be caused by using drugs or anxiety. Follow-up with your doctor in 2 days. Please return to the emergency department if your symptoms get worse or if you develop any symptoms that are concerning to you. Prescriptions: No Action buprenorphine-naloxone [Suboxone] 8-2 mg film 1 film sublingual BID PRN (Reason: breakthrough opiate withdrawl) Qty: 12 0RF Sublocade 300 mg/1.5 mL solution, extended rel syringe 300 mg subcut ONCE Qty: 1.5 5RF Rx Instructions: once every 28 days prazosin 1 mg capsule 2 mg PO BEDTIME sertraline 100 mg tablet 200 mg PO DAILY prazosin 1 mg Capsule 1 mg PO BID PRN (Reason: anxiety/insomnia) 30 Days Qty: 60 0RF Protocol: Hold for SBP< HOLD for SBP < : 90 hydroxyzine HCl 50 mg Tablet 50 mg PO BID PRN (Reason: Anxiety) 30 Days Qty: 60 0RF paliperidone 3 mg tablet extended release 24 hr 3 mg PO DAILY 30 Days Qty: 30 0RF trazodone 100 mg tablet See Rx Instructions .ROUTE .COMPLEX PRN (Reason: insomnia) 30 Days Qty: 30 0RF Rx Instructions: take one half to one tabe at bedtime by mouth as needed for insomnia nicotine 14 mg/24 hr patch 24 hour 1 patch transdermal Q24H Qty: 28 0RF
== END 2023-01-22 01:40 | disposition home or self-care (01) ==
PROVIDERS: Emergency Provider Emergency Medicine Emergency Medical Services
DX: L29.9 Pruritus, unspecified (principal); F22 Delusional disorders; R50.9 Fever, unspecified; F41.9 Anxiety disorder, unspecified; F17.210 Nicotine dependence, cigarettes, uncomplicated; Z71.6 Tobacco abuse counseling; Z79.899 Other long term (current) drug therapy
CPT/HCPCS: 99283

== ENCOUNTER 2023-01-28 15:31 | Emergency (ER) | payer OTHER, SELFPAY ==
--- NOTE | 2023-01-28 16:00 | ED_ITS ---
HPI - General Adult General Chief complaint: Psychiatric Symptoms Stated complaint: Crisis, parasites (?) Time Seen by Provider: 01/28/23 20:47 Source: patient Mode of arrival: ambulatory Limitations: no limitations History of Present Illness HPI narrative: 42-year-old male with history of schizoaffective disorder, hepatitis C, opioid use disorder, OCD, PTSD presenting to the emergency department with suicidal ideation without plan, states he feels as though he has parasites he can see on or under his skin but no one believes him, admits to recent cocaine and fentanyl use, denies alcohol. States I just want to get back on track. Patient states he does not have a plan at this time to kill himself but has tried to hang himself in the past. Patient states he last use intranasal cocaine 2 days prior but uses fentanyl intranasally daily. Patient was seen by me 01/22/2023 or delusional parasitosis. The continues to report parasites the coming out of his skin, patient showed me some dry skin on his left wrist states that the parasite is under the skin. He states that just test a pet cat and get the parasite angry and will, out. States he is having trouble sleeping he has not been able to sleep well over the last 4-5 days. Patient states that he would like to get back on track and try to get back on Suboxone to help him with this fentanyl use disorder.. Related Data Home Medications Medication Instructions Recorded Confirmed prazosin 1 mg capsule 2 mg PO BEDTIME 10/14/22 10/14/22 sertraline 100 mg tablet 200 mg PO DAILY 10/14/22 10/14/22 Previous Rx's Medication Instructions Recorded hydroxyzine HCl 50 mg tablet 50 mg PO BID PRN Anxiety 30 days 10/18/22 #60 tabs paliperidone 3 mg tablet,extended 3 mg PO DAILY 30 days #30 tabs 10/18/22 release 24 hr prazosin 1 mg capsule 1 mg PO BID PRN anxiety/insomnia 10/18/22 30 days #60 caps nicotine 14 mg/24 hr daily 1 patch transdermal Q24H #28 ea 10/19/22 transdermal patch trazodone 100 mg tablet See Rx Instructions .Route 10/20/22 .COMPLEX PRN insomnia 30 days #30 tabs buprenorphine 8 mg-naloxone 2 mg 1 film sublingual BID PRN 12/07/22 sublingual film (Suboxone) breakthrough opiate withdrawl #12 ea buprenorphine 300 mg/1.5 mL 300 mg (1.5 mL) subcut ONCE #1.5 mL 01/04/23 solution,exten.rel.subcutaneous syringe (Sublocade) Allergies Allergy/AdvReac Type Severity Reaction Status Date / Time tomato [Tomato] Allergy Severe DIFFICULTY Verified 01/28/23 16:05 BREATHING, swelling of face and throat divalproex sodium Allergy Mild SEIZURES Verified 01/28/23 16:05 [From Depakote] olanzapine [From Zyprexa] Allergy Mild NIPPLES Verified 01/28/23 16:05 LEAK risperidone [From Risperdal] Allergy Mild UNKNOWN Verified 01/28/23 16:05 quetiapine [From SEROQUEL] Allergy Unknown HEART Verified 01/28/23 16:05 PALPITATIONS lithium [[place]] AdvReac Mild STOMACH Verified 01/28/23 16:05 PAIN aripiprazole [From ABILIFY] AdvReac Unknown DYSTONIA Verified 01/28/23 16:05 Review of Systems 2 Review of Systems: Yes all other systems are reviewed and are negative [facility] Past Medical History [facility] Narrative: Social history: Patient does smoke cigarettes. Denies alcohol use. Uses both intranasal fentanyl and cocaine. Medical History Hepatitis C Cocaine use disorder Schizoaffective disorder, depressive type Opioid use disorder, severe, dependence Cocaine use disorder Panic anxiety syndrome OCD (obsessive compulsive disorder) Post traumatic stress disorder (PTSD) HTN (hypertension) Surgical History No pertinent past surgical history Social History Social History Household Members: None Household Members Other:: lives alone Housing: Unknown / Unable to assess Do you presently have visiting nurse or other home services: No Unable to assess alcohol history related to: Refusing to respond Alcohol intake: never Patient Tobacco Use Status: Tobacco use Unknown Tobacco use type: Cigarette Cigarette Packs Per Day: 1 Cigarettes Per Day: 20.0 Years Smoked: 30 Smoked in Last 30 Days: Yes e-Cigarette/Vaping Use: Currently Using Second Hand Smoke Exposure: No Use of substances other than those prescribed or required for medical reasons: Yes Substance Use Type: Heroin, Marijuana and Opiates Advance Directives: No Advance Directives Information Provided: Yes service: No Sexual orientation: Straight/Heterosexual Physical Exam ED Vital Signs: Vital Signs - 24 hr 01/28/23 16:02 01/28/23 16:04 01/28/23 16:51 Temperature 98.2 F 97.3 F 98.2 F Pulse Rate 92 88 82 Respiratory Rate 18 20 18 Blood Pressure 127/77 99/76 99/65 Pulse Oximetry 98 96 98 Oxygen Delivery Method Room Air Room Air Room Air 01/28/23 18:30 01/28/23 22:17 01/29/23 02:48 Temperature 97.7 F 98.2 F 98.9 F Pulse Rate 84 71 81 Respiratory Rate 18 18 16 Blood Pressure 98/75 113/64 126/66 Pulse Oximetry 97 100 98 Oxygen Delivery Method Room Air Room Air Room Air 01/29/23 04:58 Temperature 97.8 F Pulse Rate 62 Respiratory Rate Blood Pressure 102/55 L Pulse Oximetry 98 Oxygen Delivery Method Room Air BMI result Body Mass Index 22.2 Vital signs were normal Exam General: Patient was initially sleeping on a hallway stretcher I will, and he was awake and alert. Head: Normocephalic, atraumatic EENT: PERRL, Lids normal, sclera normal, conjunctiva normal, nose normal , ears normal, throat without erythema or exudates Neck: Supple, no adenopathy, no trachea midline or C-spine tenderness Lung: breath sounds symmetric, no wheezing, rales or rhonchi Chest: symmetric movement, nontender Heart: regular rate and rhythm, normal S1, S2 no murmurs or rubs Abdomen: soft, non-tender, nondistended, normal bowel sounds Back: no vertebral tenderness, no CVAT Extremities: no deformities, moves all extremities symmetrically Skin: Multiple areas of skin that the patient has picked up secondary to his delusional parasitosis Neuro: Awake, alert, oriented, normal speech, cranial nerves intact, moves all extremities symmetrically Psych: Anxious and cooperative Course Course Course Narrative: This is a rapid medical exam: Additional HPI, ROS, PE not included below will be deferred to primary provider. Patient is a 42-year-old male with history of schizoaffective disorder, hepatitis C, opioid use disorder, OCD, PTSD presenting to the emergency department with suicidal ideation without plan, states he feels as though he has parasites he can see on or under his skin but no one believes him, admits to recent cocaine and fentanyl use, denies alcohol. States I just want to get back on track. Plan: pod Medications Administered Discontinued Medications Generic Name Dose Route Start Last Admin Trade Name Александр PRN Reason Stop Dose Admin Lorazepam 2 mg 01/28/23 20:57 01/28/23 21:29 Lorazepam 1 Mg Tablet PO 01/28/23 20:58 2 mg ONCE STA Administration Medical Decision Making Medical Decision Making MDM Narrative: 42-year-old male with history of schizoaffective disorder, hepatitis C, opioid use disorder, OCD, PTSD presenting to the emergency department with suicidal ideation without plan, states he feels as though he has parasites he can see on or under his skin but no one believes him, admits to recent cocaine and fentanyl use, denies alcohol. States I just want to get back on track. Patient states he does not have a plan at this time to kill himself but has tried to hang himself in the past. Patient states he last use intranasal cocaine 2 days prior but uses fentanyl intranasally daily. The patient's examination did reveal will areas of skin that he has picked at which is consistent with his delusional parasitosis. I ordered a CBC, CMP, ethanol level, urine drug screen, TSH with reflex T4. Patient does not appear to be actively withdrawing from opiates at this time. Patient was given Ativan 2 mg oral tablet is anxiety and insomnia 23:31 Start physician observation: Laboratory evaluation was unremarkable. Patient is medically cleared for evaluation by the care team. Patient will be kept in the emergency department on a one-to-one observation until disposition can be determined. 08:02 End physician observation Patient has been resting comfortably and was waiting for care team evaluation He now states that he is no longer suicidal and wants to leave Given his substance use disorder, he will be discharged with intranasal Narcan Differential Diagnosis Differential Diagnoses: The differential diagnosis associated with the presentation includes Differential diagnosis includes was not limited to suicidal ideation, depression, anxiety, opiate use disorder, fentanyl use disorder, PCP, cocaine use disorder, delusional parasitosis Admission/Observation Consideration of admission/observation: Escalation of care including admission/observation considered Lab Data [facility] Lab Attestation statement: I reviewed the patient's lab results. My interpretation patient's laboratory evaluation as follows: WBC low 3000 H&H low 11 and 34.2-chronic most likely secondary to hepatitis-C. Elevated AST and ALT 48 and 41. Alcohol below detectable limits. U tox pending collection. COVID negative. TSH normal. 01/28/23 21:48 01/28/23 21:48 Labs: Lab Results 01/28/23 Range/Units 21:48 WBC 3.0 L (4.8-10.8) X10*3/uL RBC 3.99 L (4.60-5.80) X10*6/uL Hgb 11.5 L (14.0-18.0) g/dl Hct 34.2 L (42.0-52.0) % MCV 85.7 (80.0-98.0) fL MCH 28.8 (27.0-33.0) pg MCHC 33.6 (31.0-36.0) g/dl RDW 13.3 (11.0-16.0) % Plt Count 204 (160-400) X10*3/uL MPV 11.0 (9.4-12.4) fL Immature Gran % (Auto) 0.3 (0.0-0.4) % Neut % (Auto) 42.8 L (45-73) % Lymph % (Auto) 43.2 H (20-40) % [place] % (Auto) 9.3 (2-11) % Eos % (Auto) 3.7 (0-4) % Baso % (Auto) 0.7 (0-2) % Lymph # (Auto) 1.3 (1.2-4.9) X10*3/uL [place] # (Auto) 0.3 (0.1-1.2) X10*3/uL Eos # (Auto) 0.1 (0.0-0.4) X10*3/uL Baso # (Auto) 0.0 (0.0-0.2) X10*3/uL Abs Immat Gran (auto) 0.01 (0.00-0.03) X10*3/uL Absolute Neuts (auto) 1.3 L (2.0-8.3) x10*3/uL Absolute Nucleated RBC 0.000 (0.0-0.012) X10*3/uL Nucleated RBC % (auto) 0.0 (0.0-0.2) /100WBC Sodium 138 (135-145) mmol/L Potassium 4.1 (3.3-5.1) mmol/L Chloride 104 (96-108) mmol/L Carbon Dioxide 25 (22-29) mmol/L Anion Gap 13 (12-20) BUN 9 (9-16) mg/dL Creatinine 0.67 (0.5-1.4) mg/dL Estim Creat Clear Calc 148.0 Estimated GFR > 60 Random Glucose 103 (60-115) mg/dL Calcium 9.2 D (8.4-10.2) mg/dL Total Bilirubin 0.3 (0.0-1.0) mg/dL AST 48 H (5-37) U/L ALT 41 H (0-40) U/L Alkaline Phosphatase 71 (39-117) U/L Total Protein 6.7 (6.5-8.0) g/dL Albumin 3.7 (3.5-5.0) g/dL TSH 0.84 (0.32-4.0) uIU/mL Ethyl Alcohol < 10 mg/dL COVID-19 ([facility]) Negative (Negative) COVID-19 Clin Com See Note Discharge Plan Discharge Clinical Impression: Delusions of parasitosis, Suicidal ideation, Fentanyl use disorder, severe, Cocaine use Patient Disposition: Home, Self-Care Instructions: Cocaine Abuse (ED), Suicide Prevention (ED) Additional Instructions: Your are being discharged home with intranasal Narcan. If you are going to continue to use heroin, you should make sure that there is a sober person with you that is not using drugs and that this person can administer intranasal Narcan in the event that you stop breathing. Follow-up with your doctor in 2 days. Please return to the emergency department if your symptoms get worse or if you develop any symptoms that are concerning to you. Prescriptions: No Action buprenorphine-naloxone [Suboxone] 8-2 mg film 1 film sublingual BID PRN (Reason: breakthrough opiate withdrawl) Qty: 12 0RF Sublocade 300 mg/1.5 mL solution, extended rel syringe 300 mg subcut ONCE Qty: 1.5 5RF Rx Instructions: once every 28 days prazosin 1 mg capsule 2 mg PO BEDTIME sertraline 100 mg tablet 200 mg PO DAILY prazosin 1 mg Capsule 1 mg PO BID PRN (Reason: anxiety/insomnia) 30 Days Qty: 60 0RF Protocol: Hold for SBP< HOLD for SBP < : 90 hydroxyzine HCl 50 mg Tablet 50 mg PO BID PRN (Reason: Anxiety) 30 Days Qty: 60 0RF paliperidone 3 mg tablet extended release 24 hr 3 mg PO DAILY 30 Days Qty: 30 0RF trazodone 100 mg tablet See Rx Instructions .ROUTE .COMPLEX PRN (Reason: insomnia) 30 Days Qty: 30 0RF Rx Instructions: take one half to one tabe at bedtime by mouth as needed for insomnia nicotine 14 mg/24 hr patch 24 hour 1 patch transdermal Q24H Qty: 28 0RF Interventions: [place]-Suicide Risk Severity Scale Last Done: 01/28/23 16:04
[2023-01-28 16:02] VITALS: BP 127/77; PULSE 92; RESP 18; TEMP 36.8; O2SAT 98; BMI 22.2
[2023-01-28 16:04] VITALS: BP 99/76; PULSE 88; RESP 20; TEMP 36.3; O2SAT 96
[2023-01-28 16:51] VITALS: BP 99/65; PULSE 82; RESP 18; TEMP 36.8; O2SAT 98
[2023-01-28 18:30] VITALS: BP 98/75; PULSE 84; RESP 18; TEMP 36.5; O2SAT 97
--- NOTE | 2023-01-28 20:26 | PC.NURSE ---
Pt currently sitting upright on stretcher, appears restless but otherwise in NAD. VSS. RR even and unlabored bilaterally on RA. 1:[address] for safety. Scattered small scabs over body. Pt continues to state that he believes he has a parasitic infection. Psych history, endorses recent drug use. States that he wants help and feels as though he is losing it. Awaiting crisis consult.
[2023-01-28] MEDS: LORazepam 1 MG TABLET 2 MG PO (21:29)
[2023-01-28 21:51] LABS: MANUAL DIFF FLAG NO
[2023-01-28 21:56] LABS: Basophils Percent Auto 0.7 % (0-2); Eosinophils Absolute Auto 0.1 X10*3/uL (0.0-0.4); Eosinophils Percent Auto 3.7 % (0-4); Hematocrit 34.2 % (42.0-52.0); Hemoglobin 11.5 g/dl (14.0-18.0); Imm Gran Abs Auto 0.01 X10*3/uL (0.00-0.03); Imm Gran Pct Auto 0.3 % (0.0-0.4); Lymphocytes Absolute Auto 1.3 X10*3/uL (1.2-4.9); Lymphocytes Percent Auto 43.2 % (20-40); Mean Corpuscular HGB Conc 33.6 g/dl (31.0-36.0); Mean Corpuscular Hemoglobin 28.8 pg (27.0-33.0); Mean Corpuscular Volume 85.7 fL (80.0-98.0); Monocytes Absolute Auto 0.3 X10*3/uL (0.1-1.2); Monocytes Percent Auto 9.3 % (2-11); Neutrophils Absolute Auto 1.3 x10*3/uL (2.0-8.3); Neutrophils Percent Auto 42.8 % (45-73); Platelet Count 204 X10*3/uL (160-400); Red Blood Count 3.99 X10*6/uL (4.60-5.80); Red Cell Distribution Width 13.3 % (11.0-16.0)
[2023-01-28 22:06] LABS: COVID-19 Test Negative (Negative); IDNOW Serial# 08D9AD1C
[2023-01-28 22:07] LABS: Ethanol < 10 mg/dL
[2023-01-28 22:16] LABS: Alanine Aminotransferase 41 U/L (0-40); Albumin Level 3.7 g/dL (3.5-5.0); Alkaline Phosphatase 71 U/L (39-117); Anion Gap 13 (12-20); Aspartate Amino Transferase 48 U/L (5-37); Bilirubin Total 0.3 mg/dL (0.0-1.0); Blood Urea Nitrogen 9 mg/dL (9-16); Calcium 9.2 mg/dL (8.4-10.2); Carbon Dioxide 25 mmol/L (22-29); Chloride 104 mmol/L (96-108); Estimated Glomerular Filt Rate > 60; Glucose Random 103 mg/dL (60-115); Potassium 4.1 mmol/L (3.3-5.1); Sodium 138 mmol/L (135-145); Total Protein 6.7 g/dL (6.5-8.0)
[2023-01-28 22:17] VITALS: BP 113/64; PULSE 71; RESP 18; TEMP 36.8; O2SAT 100
[2023-01-28 22:30] LABS: TSH reflex Free T4 0.84 uIU/mL (0.32-4.0)
[2023-01-29 02:48] VITALS: BP 126/66; PULSE 81; RESP 16; TEMP 37.2; O2SAT 98
--- NOTE | 2023-01-29 03:01 | PC.NURSE ---
RN unable to add the COWS assessment scale to the worklist myself but was unsuccessful. RN notified Dr. Monae and asked if he could order the COWS assessment for proper assessment and management of pt's reported opiate withdrawal
[2023-01-29 03:11] VITALS: PULSE 81
[2023-01-29 04:58] VITALS: BP 102/55; PULSE 62; TEMP 36.6; O2SAT 98
== END 2023-01-29 08:15 | disposition home or self-care (01) ==
PROVIDERS: Emergency Provider Emergency Medicine Emergency Medical Services
DX: F25.1 Schizoaffective disorder, depressive type (principal); R45.851 Suicidal ideations; G47.00 Insomnia, unspecified; Z11.52 Encounter for screening for COVID-19; F43.10 Post-traumatic stress disorder, unspecified; F90.9 Attention-deficit hyperactivity disorder, unspecified type; F33.1 Major depressive disorder, recurrent, moderate; F41.9 Anxiety disorder, unspecified; F19.10 Other psychoactive substance abuse, uncomplicated; F10.20 Alcohol dependence, uncomplicated; Y90.0 Blood alcohol level of less than 20 mg/100 ml; F11.20 Opioid dependence, uncomplicated; B19.20 Unspecified viral hepatitis C without hepatic coma; I10 Essential (primary) hypertension; F17.210 Nicotine dependence, cigarettes, uncomplicated; Z79.899 Other long term (current) drug therapy
CPT/HCPCS: 36415; 80053; 80307; 84443; 85025; 87635; 99285

== ENCOUNTER 2023-02-07 11:13 | Outpatient (AMB) | payer OTHER, SELFPAY ==
--- NOTE | 2023-02-07 11:14 | MHC.OFFVIS ---
Intake Vital Signs 02/07/23 11:24 BP 116/74 Blood Pressure Location Lt radial Position Sitting Pulse 99 Pulse Source Pulse Oximeter Pulse Oximetry (%) 99 Oxygen Delivery Method Room Air Intake Visit Reasons: MAT Visit Intake Note: The patient presents for a mat visit Worm Grower Required: No Allergies tomato [Tomato] Allergy (Severe, Verified 02/07/23 11:15) DIFFICULTY BREATHING, swelling of face and throat divalproex sodium [From Depakote] Allergy (Mild, Verified 02/07/23 11:15) SEIZURES olanzapine [From Zyprexa] Allergy (Mild, Verified 02/07/23 11:15) NIPPLES LEAK risperidone [From Risperdal] Allergy (Mild, Verified 02/07/23 11:15) UNKNOWN quetiapine [From SEROQUEL] Allergy (Unknown, Verified 02/07/23 11:15) HEART PALPITATIONS lithium [[place]] Adverse Reaction (Mild, Verified 02/07/23 11:15) STOMACH PAIN aripiprazole [From ABILIFY] Adverse Reaction (Unknown, Verified 02/07/23 11:15) DYSTONIA Medication List - Last Reconciled 02/07/23 by Brittany Shepard, DIGITAL CIRCUIT DESIGNER buprenorphine ER (Sublocade) 300 mg (1.5 mL) subcut ONCE buprenorphine-naloxone 8-2 mg (Suboxone) 1 film sublingual TID dextroamphetamine-amphetamine 20 mg (Adderall) 20 mg PO BID hydroxyzine HCl 50 mg PO BID PRN 30 days lorazepam 1 mg PO BID PRN nicotine 1 patch transdermal Q24H paliperidone ER 6 mg PO DAILY prazosin 2 mg PO BEDTIME sertraline 300 mg PO DAILY trazodone take one half to one tabe at bedtime by mouth as needed for insomnia 30 days Do you need a note to return to daycare/school/sports/work: No HPI MAT Visit HPI Details Patient presents for follow up Recently admitted to [facility]-- unit, although patient reports it was both medical and psychiatric admission. Patient presenting as irritable, guarded, appearing to be under the influence. Minimal answers to questions, stating several times, I'd rather not talk about that . Did report that suboxone dose in hospital was 8mg TID--does not want injection at this time. Concern with upcoming court date and possible incarceration. [facility] Medical History Hepatitis C Cocaine use disorder Schizoaffective disorder, depressive type Opioid use disorder, severe, dependence Cocaine use disorder Panic anxiety syndrome OCD (obsessive compulsive disorder) Post traumatic stress disorder (PTSD) HTN (hypertension) Surgical History No pertinent past surgical history Social History Household Members: None Household Members Other:: lives alone Housing: Unknown / Unable to assess Do you presently have visiting nurse or other home services: No Unable to assess alcohol history related to: Refusing to respond Alcohol intake: never Patient Tobacco Use Status: Tobacco use Unknown Tobacco use type: Cigarette Cigarette Packs Per Day: 1 Cigarettes Per Day: 20.0 Years Smoked: 30 e-Cigarette/Vaping Use: Currently Using Second Hand Smoke Exposure: No Substance Use Type: Heroin, Marijuana and Opiates service: No Sexual orientation: Straight/Heterosexual Review of Systems Const Reports as per HPI and Reports no additional complaints Physical Exam Vital Signs: Last Vital Signs Pulse 99 02/07/23 11:24 BP 116/74 02/07/23 11:24 Pulse Ox 99 02/07/23 11:24 Oxygen Delivery Method Room Air 02/07/23 11:24 Const General: intoxicated appearing Nutritional Appearance: thin Psych Appearance: grossly normal Speech and movement: Restless speech present Affect: Irritable affect present Attitude: Guarded attititude/behavior present Results AMB 14 Panel Urine Drug Screen Urine Marijuana (THC) Positive Last Edit by Katina Negrete CMA on 02/07/23 11:28 Urine Cocaine Positive Last Edit by Katina Negrete CMA on 02/07/23 11:28 Urine Morphine Negative Last Edit by Katina Negrete CMA on 02/07/23 11:28 Urine Methamphetamine Negative Last Edit by Katina Negrete CMA on 02/07/23 11:28 Urine Amphetamine Negative Last Edit by Katina Negrete CMA on 02/07/23 11:28 Urine Benzodiazepine Positive Last Edit by Katina Negrete CMA on 02/07/23 11:28 Urine Barbiturates Negative Last Edit by Katina Negrete CMA on 02/07/23 11:28 Urine Methadone Negative Last Edit by Katina Negrete CMA on 02/07/23 11:28 Urine Buprenorphine Positive Last Edit by Katina Negrete CMA on 02/07/23 11:28 Urine Tricyclic Antidepressant Positive Last Edit by Katina Negrete CMA on 02/07/23 11:28 Urine MDMA Negative Last Edit by Katina Negrete CMA on 02/07/23 11:28 Urine Oxycodone Negative Last Edit by Katina Negrete CMA on 02/07/23 11:28 Urine Phencyclidine Negative Last Edit by Katina Negrete CMA on 02/07/23 11:28 Urine Propoxyphene Negative Last Edit by Katina Negrete CMA on 02/07/23 11:28 Results Reviewed Results Reviewed: Laboratory Last Values POC Urine Buprenorphine Positive 02/07/23 11:15 POC Urine Morphine Negative 02/07/23 11:15 POC Urine Oxycodone Negative 02/07/23 11:15 POC Urine Methadone Negative 02/07/23 11:15 POC Urine Propoxyphene Negative 02/07/23 11:15 POC Urine Barbiturates Negative 02/07/23 11:15 POC U Tricyclic Antidpr Positive 02/07/23 11:15 POC Urine PCP Negative 02/07/23 11:15 POC Ur Amphetamines Negative 02/07/23 11:15 POC Ur Methamphetamine Negative 02/07/23 11:15 POC Urine MDMA Negative 02/07/23 11:15 POC Ur Benzodiazepine Positive 02/07/23 11:15 POC Urine Cocaine Positive 02/07/23 11:15 POC Ur Marijuana (THC) Positive 02/07/23 11:15 Assessment & Plan Assessment & Plan (1) Opioid use disorder, severe, dependence: Code(s): F11.20 - Opioid dependence, uncomplicated Plan: Suboxone 8mg TID follow up one week Orders: Orders AMB 14 Panel Urine Drug Screen Today Z51.81 - Encounter for therapeutic drug level monitoring Medications: New dextroamphetamine-amphetamine 20 mg (Adderall) administer doses at least 4-6 hours apart 20 mg PO BID 0RF lorazepam 1 mg PO BID PRN Changed From paliperidone ER 3 mg PO DAILY 30 days 30 tabs 0RF To paliperidone ER 6 mg PO DAILY From buprenorphine-naloxone 8-2 mg (Suboxone) 1 film sublingual BID PRN 12 ea 0RF breakthrough opiate withdrawl To buprenorphine-naloxone 8-2 mg (Suboxone) 1 film sublingual TID 21 ea 0RF Coding Level of Care Code Est Pt Level 4 (50824) Diagnoses Opioid use disorder, severe, dependence F11.20
[2023-02-07 11:24] VITALS: BP 116/74; PULSE 99; O2SAT 99
== END 2023-02-07 11:38 | disposition home or self-care (01) ==
PROVIDERS: Visit Provider Nurse Practitioner Psychiatric/Mental Health
DX: F11.20 Opioid dependence, uncomplicated (principal); Z51.81 Encounter for therapeutic drug level monitoring
CPT/HCPCS: 99214

== ENCOUNTER → 2023-02-07 11:13 | Outpatient (BNVA) | payer OTHER, SELFPAY | PROVIDERS: Visit Provider Nurse Practitioner Psychiatric/Mental Health | DX: Z51.81 Encounter for therapeutic drug level monitoring (principal); F11.20 Opioid dependence, uncomplicated | CPT/HCPCS: 80305; 99212 ==

== ENCOUNTER 2023-04-18 11:33 | Outpatient (AMB) | payer OTHER, SELFPAY ==
--- NOTE | 2023-04-18 11:48 | A.OFFVISCC_ITS ---
Intake Vital Signs 04/18/23 11:56 BP 118/72 Blood Pressure Location Lt radial Position Sitting Pulse 74 Pulse Source Pulse Oximeter Pulse Oximetry (%) 97 Oxygen Delivery Method Room Air Intake Visit Reasons: MAT Visit Intake Note: The patient presents for a mat visit Marketing Support Assistant Required: No Allergies tomato [Tomato] Allergy (Severe, Verified 04/18/23 11:48) DIFFICULTY BREATHING, swelling of face and throat divalproex sodium [From Depakote] Allergy (Mild, Verified 04/18/23 11:48) SEIZURES olanzapine [From Zyprexa] Allergy (Mild, Verified 04/18/23 11:48) NIPPLES LEAK risperidone [From Risperdal] Allergy (Mild, Verified 04/18/23 11:48) UNKNOWN quetiapine [From SEROQUEL] Allergy (Unknown, Verified 04/18/23 11:48) HEART PALPITATIONS lithium [[place]] Adverse Reaction (Mild, Verified 04/18/23 11:48) STOMACH PAIN aripiprazole [From ABILIFY] Adverse Reaction (Unknown, Verified 04/18/23 11:48) DYSTONIA Do you need a note to return to daycare/school/sports/work: No HPI MAT Visit HPI Details Patient presents for GEORGE follow up Currently taking Suboxone 24mg QD (16mg in AM and 8mg in evening) Doing well overall --has gained some weight. Bright affect reports he is back with his GF. 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 [facility] Medical History Hepatitis C Cocaine use disorder Schizoaffective disorder, depressive type Opioid use disorder, severe, dependence Cocaine use disorder Panic anxiety syndrome OCD (obsessive compulsive disorder) Post traumatic stress disorder (PTSD) HTN (hypertension) Surgical History No pertinent past surgical history Social History Household Members: None Household Members Other:: lives alone Housing: Unknown / Unable to assess Do you presently have visiting nurse or other home services: No Unable to assess alcohol history related to: Refusing to respond Alcohol intake: never Comment: M3 Patient Tobacco Use Status: Tobacco use Unknown Tobacco use type: Cigarette Cigarette Packs Per Day: 1 Cigarettes Per Day: 20.0 Years Smoked: 30 e-Cigarette/Vaping Use: Currently Using Second Hand Smoke Exposure: No Substance Use Type: Heroin, Marijuana and Opiates service: No Sexual orientation: Straight/Heterosexual Review of Systems Const Reports as per HPI Psych Reports anxiety and Reports difficulty concentrating Physical Exam Vital Signs: Last Vital Signs Pulse 74 04/18/23 11:56 BP 118/72 04/18/23 11:56 Pulse Ox 97 04/18/23 11:56 Oxygen Delivery Method Room Air 04/18/23 11:56 Const General: cooperative, healthy appearing and no acute distress Nutritional Appearance: thin Orientation/consciousness: patient oriented x3 Limitations: no limitations Neuro General: patient oriented x3 Assessment & Plan Assessment & Plan (1) Opioid use disorder, severe, dependence: Code(s): F11.20 - Opioid dependence, uncomplicated Plan: * continue suboxone at current dose * follow up 2 weeks (2) Alcohol use disorder, severe, dependence: Code(s): F10.20 - Alcohol dependence, uncomplicated Plan * relapse prevention discussion * referral to be sent Medications: Refilled buprenorphine-naloxone 8-2 mg (Suboxone) 1 film sublingual TID 24 ea 0RF Coding Level of Care Code Est Pt Level 3 (19213) Diagnoses Opioid use disorder, severe, dependence F11.20 Alcohol use disorder, severe, dependence F10.20
[2023-04-18 11:56] VITALS: BP 118/72; PULSE 74; O2SAT 97
== END 2023-04-18 13:13 | disposition home or self-care (01) ==
PROVIDERS: Visit Provider Nurse Practitioner Psychiatric/Mental Health
DX: F11.20 Opioid dependence, uncomplicated (principal); F10.20 Alcohol dependence, uncomplicated
CPT/HCPCS: 99213

== ENCOUNTER → 2023-04-18 11:33 | Outpatient (BNVA) | payer OTHER, SELFPAY | PROVIDERS: Visit Provider Nurse Practitioner Psychiatric/Mental Health | DX: F11.20 Opioid dependence, uncomplicated (principal); F10.20 Alcohol dependence, uncomplicated | CPT/HCPCS: 99212 ==

== ENCOUNTER 2023-12-07 16:12 | Inpatient (IN) | payer OTHER, SELFPAY ==
--- NOTE | ~2023-12-07 | CT_ITS ---
EXAMINATION: CT CERVICAL SPINE WITHOUT CONTRAST CLINICAL INFORMATION: Trauma. COMPARISON: None available. TECHNIQUE: Axial images obtained through the cervical spine. Coronal and sagittal reformatted images are performed with CT scanner This CT examination was performed using dose optimization techniques as appropriate, variously including the following: *Automated exposure control *Adjustment of mA and/or kV according to patient size (this includes techniques or standardized protocols for targeted exams where dose is matched to indication/reason for exam; i.e. extremities or head) *Use of iterative reconstruction technique DLP: 388 mGy-cm FINDINGS: Cervical vertebrae are normal in height and alignment. No fracture or subluxation. No prevertebral soft tissue swelling. Cervical disc height are normal. Facet joints are normal. Moderate centrilobular and paraseptal edematous change of the lung apices. CT/CT cervical spine wo IV con IMPRESSION: Unremarkable examination. Fleischner guidelines were followed. Electronically signed by: Mateo Ha MD 12/07/2023 09:27 PM EDT
--- NOTE | ~2023-12-07 | CT_ITS ---
EXAMINATION: CT CHEST WITHOUT CONTRAST CLINICAL INFORMATION: Pulmonary nodules COMPARISON: Chest x-ray on 12/07/2023 TECHNIQUE: Multidetector volumetric CT imaging of the chest was done. Axial MIP volume rendering provided. Sagittal and coronal reformatted images were obtained. This CT examination was performed using dose optimization techniques as appropriate, variously including the following: *Automated exposure control *Adjustment of mA and/or kV according to patient size (this includes techniques or standardized protocols for targeted exams where dose is matched to indication/reason for exam; i.e. extremities or head) *Use of iterative reconstruction technique DLP: 769 mGy-cm FINDINGS: LUNGS: In the subpleural region of the lateral right upper lobe, there is a 3.5 cm region of consolidation/groundglass attenuation. There are additional bilateral scattered small pulmonary nodules as follows: Medial right lower lobe 4 mm Superior segment right lower lobe 3 mm 4 mm along the right minor fissure (likely an intraparenchymal lymph node) There is mild apical predominant emphysema. MEDIASTINUM: The mediastinum is normal. CORONARY ARTERY CALCIFICATION: None visualized on this study. PLEURA: There is no pleural effusion. No pleural mass or thickening. AXILLA: No lymphadenopathy. UPPER ABDOMEN: Unremarkable. OSSEOUS STRUCTURES: Unremarkable. CT/CT chest wo IV con IMPRESSION: 1. 3.5 cm region of consolidation/groundglass attenuation in the subpleural region of the lateral right upper lobe. This may be infectious/inflammatory in etiology. Recommend short interval follow-up in 3-6 months. 2. Additional bilateral pulmonary nodules measuring up to 4 mm. Fleischner guidelines were followed. Electronically signed by: Sarahi Jiménez MD 12/11/2023 07:33 AM EDT
--- NOTE | ~2023-12-07 | XR_ITS ---
EXAMINATION: XR CHEST 2 VIEW CLINICAL INFORMATION: Shortness of breath COMPARISON: None TECHNIQUE: PA and lateral views of the chest obtained. FINDINGS: The lungs are hyperinflated but clear. There are no pleural effusions. The cardiomediastinal silhouette is normal. XR/XR chest 2V IMPRESSION: Hyperinflation. No acute cardiopulmonary disease. Electronically signed by: Charly Lambert MD 12/07/2023 08:51 PM EDT
[2023-12-07 16:26] VITALS: BP 140/86; PULSE 96; RESP 16; TEMP 36.3; O2SAT 95; BMI 19.3
[2023-12-07 16:29] VITALS: RESP 16
--- NOTE | 2023-12-07 16:42 | PC.NURSE ---
RE:: med rec This RN completed med rec while speaking with patient. Patient verbally recalled all medications. Palperidone was apparently not re-prescribed by his provider but he reports taking the last dose T-11 days. All other meds were T-5 days.
--- NOTE | 2023-12-07 16:44 | PC.NURSE ---
Jaswinder comes in from home today reporting SI with a plan to choke himself to or overdose on heroin. He reports he has tried to choke himself out multiple times over the past few days and that is evident with the bruising around his neck. Pt reports he has multiple increasing life stressors mainly related to health concerns. Patient cooperative with change release manager, understanding of process to be seen. Patient pacing back and forth to release energy at this time. Denies HI/AH/VH
[2023-12-07 16:57] LABS: Amphetamine Screen Urine Not Detected (Not Detect); Barbiturates, Urine Not Detected (Not Detect); Benzodiazepines Screen Urine Not Detected (Not Detect); Buprenorphine Scr Positive (Not Detect); Cannabinoid Screen Urine POSITIVE (Not Detect); Cocaine Screen Urine POSITIVE (Not Detect); Fentanyl, urine POSITIVE (Not Detect); Methadone Screen, Urine Positive (Not Detect); Opiate Screen Urine POSITIVE (Not Detect); Oxycodone Screen Urine Not Detected (Not Detect); Phencyclidine Screen Urine Not Detected (Not Detect)
[2023-12-07 17:15] LABS: Appearance Urine Clear; Color Urine Dark Yellow; Glucose Urine UA Negative (Negative); Leukocyte Esterase Urine Negative (Negative); Nitrite Urine Negative (Negative); Specific Gravity - Urine 1.025 (1.005-1.025); UMIC TRIGGER UACC YES; Urine Blood Negative (Negative); Urine Ketones Trace mg/dL (Negative); Urine Protein 30 (1+) mg/dL (Neg-Trace)
[2023-12-07 17:20] LABS: Bacteria Urine None Seen (None Seen); RBC Urine 0-2 /HPF (0-2); Squamous Epithelial Cell Urine 0-2 /HPF (0-2); WBC Urine 0-5 /HPF (0-5)
[2023-12-07] MEDS: LORazepam 1 MG TABLET 2 MG PO (17:33)
[2023-12-07 17:56] LABS: MANUAL DIFF FLAG NO
[2023-12-07 18:13] LABS: Basophils Percent Auto 0.4 % (0-2); Eosinophils Percent Auto 0.6 % (0-4); Hematocrit 42.1 % (42.0-52.0); Imm Gran Abs Auto 0.02 X10*3/uL (0.00-0.03); Imm Gran Pct Auto 0.4 % (0.0-0.4); Lymphocytes Absolute Auto 1.8 X10*3/uL (1.2-4.9); Lymphocytes Percent Auto 34.5 % (20-40); Mean Corpuscular HGB Conc 33.3 g/dl (31.0-36.0); Mean Corpuscular Hemoglobin 28.2 pg (27.0-33.0); Mean Corpuscular Volume 84.9 fL (80.0-98.0); Mean Platelet Volume 10.8 fL (9.4-12.4); Monocytes Absolute Auto 0.5 X10*3/uL (0.1-1.2); Monocytes Percent Auto 8.4 % (2-11); Neutrophils Percent Auto 55.7 % (45-73); Platelet Count 210 X10*3/uL (160-400); Red Blood Count 4.96 X10*6/uL (4.60-5.80); Red Cell Distribution Width 13.3 % (11.0-16.0); White Blood Count 5.3 X10*3/uL (4.8-10.8)
[2023-12-07 18:22] LABS: Alanine Aminotransferase 46 U/L (0-40); Albumin Level 4.3 g/dL (3.5-5.0); Alkaline Phosphatase 91 U/L (39-117); Anion Gap 16 (12-20); Aspartate Amino Transferase 77 U/L (5-37); Bilirubin Total 0.5 mg/dL (0.0-1.0); Blood Urea Nitrogen 13 mg/dL (9-16); Calcium 9.6 mg/dL (8.4-10.2); Carbon Dioxide 21 mmol/L (22-29); Chloride 103 mmol/L (96-108); Creatinine Clr Calc Pharmacy 111.8; Estimated Glomerular Filt Rate > 60; Ethanol 114 mg/dL; Glucose Random 92 mg/dL (60-115); Sodium 136 mmol/L (135-145); Total Protein 8.2 g/dL (6.5-8.0)
--- NOTE | 2023-12-07 19:07 | ED_ITS ---
HPI - General Adult General Chief complaint: Psychiatric Symptoms Stated complaint: crisis Time Seen by Provider: 12/07/23 17:31 Source: patient, RN notes reviewed and old records reviewed Mode of arrival: ambulatory Limitations: no limitations History of Present Illness ED Provider: Freida LEIVA narrative: 43-year-old male presents for evaluation of suicidal ideation. Patient reports that he has been feeling depressed with suicidal ideation for about 2 months. He reports his symptoms started after he was diagnosed with ?lung nodules. He was told that it may be pneumonia or it may be cancer but he has not followed up after taking the initial course of antibiotics He reports that he has intermittently been coughing up blood He states that this is the primary driving for shows increased anxiety and depression The patient reports that he attempted to hang himself yesterday He reports that he used a ?rolled up towel. He states that he got himself down before he passed out He also reports that he has been occasionally attempting to his 66 himself ?because it helps deal with my anxiety. ? The patient endorses relapse with polysubstance abuse including cocaine He reports he last use 2 days ago He complains of mild neck pain Related Data Home Medications ?Medication ?Instructions ?Recorded ?Confirmed prazosin 1 mg capsule 2 mg PO BEDTIME 10/14/22 12/07/23 lorazepam 1 mg tablet 1 mg PO BID PRN Agitation 02/07/23 12/07/23 paliperidone 9 mg tablet,extended 9 mg PO DAILY 12/07/23 12/07/23 release 24 hr methadone 10 mg/mL oral 95 mg PO DAILY 12/08/23 12/08/23 concentrate (Methadone Intensol) Previous Rx's ?Medication ?Instructions ?Recorded trazodone 100 mg tablet See Rx Instructions .Route 10/20/22 .COMPLEX PRN insomnia 30 days #30 tabs dextroamphetamine-amphetamine 20 20 mg PO BID 30 days #60 tabs 12/15/23 mg tablet (Adderall) escitalopram oxalate 20 mg tablet 20 mg PO DAILY 30 days #30 tabs 12/15/23 fluticasone fur. 100 mcg-umeclid 1 inh inhalation RDAILY 30 days 12/15/23 62.5 mcg-vilant 25 mcg #60 ea inhalat.powder (Trelegy Ellipta) nicotine (polacrilex) 4 mg buccal 4 mg buccal Q2H PRN Nicotine 12/15/23 lozenge Cravings 30 days #108 ea nicotine 7 mg/24 hr daily 7 mg transdermal DAILY PRN smoking 12/15/23 transdermal patch cessation 14 days #14 ea Allergies Allergy/AdvReac Type Severity Reaction Status Date / Time tomato [Tomato] Allergy Severe DIFFICULTY Verified 12/07/23 16:29 BREATHING, swelling of face and throat divalproex sodium Allergy Mild SEIZURES Verified 12/07/23 16:29 [From Depakote] olanzapine [From Zyprexa] Allergy Mild NIPPLES Verified 12/07/23 16:29 LEAK risperidone [From Risperdal] Allergy Mild UNKNOWN Verified 12/07/23 16:29 quetiapine [From SEROQUEL] Allergy Unknown HEART Verified 12/07/23 16:29 PALPITATIONS lithium [[place]] AdvReac Mild STOMACH Verified 12/07/23 16:29 PAIN aripiprazole [From ABILIFY] AdvReac Unknown DYSTONIA Verified 12/07/23 16:29 Review of Systems 2 Constitutional: Constitutional: Denies body ache(s), Denies chills and Denies headache(s) Eyes: Eyes: Denies blurry vision ENT: Denies dizziness, Denies headache(s) and Reports neck pain Cardiovascular: Cardiovascular: Denies chest pain and Denies dyspnea Respiratory: Respiratory: Denies cough and Denies dyspnea Gastrointestinal: Gastrointestinal: Denies abdominal pain, Denies nausea and Denies vomiting Musculoskeletal: Musculoskeletal: Reports neck pain and Reports stiffness Integumentary/Breasts: Skin/Breast: Denies rash Neurologic: Denies dizziness and Denies headache(s) [facility] Past Medical History Medical History (Updated 12/13/23 @ 12:59 by Farhat Medley MD) Hepatitis C Cocaine use disorder Schizoaffective disorder, depressive type Opioid use disorder, severe, dependence Cocaine use disorder Panic anxiety syndrome OCD (obsessive compulsive disorder) Post traumatic stress disorder (PTSD) HTN (hypertension) Surgical History No pertinent past surgical history Social History Social History Household Members: None Household Members Other:: lives alone Housing: Unknown / Unable to assess Do you presently have visiting nurse or other home services: No Unable to assess alcohol history related to: Refusing to respond Alcohol intake: never Comment: M3 Patient Tobacco Use Status: Current everyday Tobacco user Tobacco use type: Cigarette Cigarette Packs Per Day: 1 Cigarettes Per Day: 20.0 Years Smoked: 30 e-Cigarette/Vaping Use: Currently Using Second Hand Smoke Exposure: Yes Substance Use Type: Crack/Cocaine and Marijuana service: No Sexual orientation: Straight/Heterosexual Physical Exam ED Vital Signs: Vital Signs - 24 hr 12/07/23 16:26 12/07/23 16:29 12/08/23 06:14 Temperature 97.4 F 97.9 F Pulse Rate 96 60 Respiratory Rate 16 16 18 Blood Pressure 140/86 H 98/60 Pulse Oximetry 95 97 Oxygen Delivery Method Room Air Room Air BMI result Body Mass Index 19.3 Const General: healthy appearing, comfortable, no acute distress, alert and awake Nutritional Appearance: well nourished Orientation/consciousness: patient oriented x3 HENMT Head: Yes normocephalic and Yes atraumatic Eyes Eyelids: Yes eyelids normal Conjunctivae: conjunctivae normal Sclerae: sclerae normal Corneas: corneas normal Pupils: Equal, round and reactive pupils present EOM: EOMs intact bilaterally Neck Other: Patient has mild ecchymosis in the anterior neck consistent with ligature [place] Neck: Yes full ROM Resp Effort & Inspection: normal respiratory effort, able to speak in complete sentences and not labored Skin General skin exam: elasticity normal Neuro General: patient oriented x3 Cranial nerves: Yes Equal, round and reactive pupils present and Yes Bilaterally intact EOM present Cognition (Neuro): normal cognition Extrem Other: Moving all extremities well without any obvious deformities Course Reevaluation(s) Reevaluation #1: Patient is seen with the care team, he is deemed to require inpatient level of care. He will be placed on a section 12 Time: 00:21 Reevaluation #2: Bed search continue no event overnight remain clinically stable Time: 07:12 Medications Administered Discontinued Medications Generic Name Dose Route Start Last Admin Trade Name Freq PRN Reason Stop Dose Admin Acetaminophen 650 mg 12/08/23 13:19 12/09/23 12:05 Acetaminophen 325 Mg Tablet PO 650 mg Q6H PRN Administration Headache/Pain Mild Scale (1-3) Amphetamine/Dextroamphetamine 20 mg 12/08/23 09:00 12/08/23 10:56 Amphetamine Mixed Salts 20 Mg Tablet PO 20 mg BID RISSA Administration Amphetamine/Dextroamphetamine 20 mg 12/08/23 13:45 12/16/23 08:44 Amphetamine Mixed Salts 20 Mg Tablet PO 20 mg BID@0900,1300 [facility] Administration Escitalopram Oxalate 10 mg 12/13/23 09:00 12/13/23 08:59 Escitalopram Oxalate 10 Mg Tablet PO 10 mg DAILY RISSA Administration Escitalopram Oxalate 5 mg 12/12/23 15:15 12/12/23 15:33 Escitalopram Oxalate 5 Mg Tablet PO 12/12/23 15:16 5 mg ONCE ONE Administration Escitalopram Oxalate 20 mg 12/14/23 09:00 12/16/23 08:44 Escitalopram Oxalate 20 Mg Tablet PO 20 mg DAILY RISSA Administration Fluticasone/Umeclidinium/Vilanterol 1 puff 12/15/23 08:00 12/16/23 07:53 Fluticasone/Umeclidinium/Vilanterol 100/62.5/25 Blst.W.Dev INHALE 1 puff RDAILY RISSA Administration Hydroxyzine HCl 25 mg 12/08/23 13:19 12/10/23 11:18 Hydroxyzine Hcl 25 Mg Tablet PO 25 mg Q6H PRN Administration Anxiety Lorazepam 2 mg 12/07/23 17:31 12/07/23 17:33 Lorazepam 1 Mg Tablet PO 12/07/23 17:32 2 mg ONCE ONE Administration Lorazepam 1 mg 12/07/23 19:44 12/07/23 19:48 Lorazepam 1 Mg Tablet PO 12/07/23 19:45 1 mg ONCE ONE Administration Lorazepam 2 mg 12/07/23 23:45 12/08/23 11:03 Lorazepam 1 Mg Tablet PO 2 mg Q4H PRN Administration Alcohol Withdrawal Lorazepam 1 mg 12/08/23 16:42 12/09/23 13:02 Lorazepam 1 Mg Tablet PO 1 mg Q2H PRN Administration CIWA 6-10 Lorazepam 2 mg 12/08/23 16:42 12/09/23 16:34 Lorazepam 1 Mg Tablet PO 2 mg Q2H PRN Administration CIWA 11 and above Lorazepam 1 mg 12/08/23 16:43 12/09/23 14:56 Lorazepam 1 Mg Tablet PO 1 mg BID PRN Administration moderate anxiety Lorazepam 2 mg 12/09/23 21:00 12/12/23 15:37 Lorazepam 1 Mg Tablet PO Not Given TID RISSA Lorazepam 1 mg 12/12/23 17:00 12/13/23 20:18 Lorazepam 1 Mg Tablet PO 12/13/23 21:00 1 mg QID RISSA Administration Lorazepam 1 mg 12/14/23 09:00 12/15/23 15:04 Lorazepam 1 Mg Tablet PO 1 mg TID RISSA Administration Lorazepam 1 mg 12/15/23 21:00 12/16/23 08:45 Lorazepam 1 Mg Tablet PO 1 mg BID RISSA Administration Methadone HCl 95 mg 12/08/23 09:28 12/08/23 10:58 Methadone Hcl 20 Mg/2 Ml Oral.Conc PO 12/08/23 09:29 95 mg ONCE ONE Administration Methadone HCl 95 mg 12/09/23 09:00 12/16/23 07:53 Methadone Hcl 20 Mg/2 Ml Oral.Conc PO 95 mg DAILY RISSA Administration Naloxone HCl 8 mg 12/16/23 07:00 12/16/23 06:32 Naloxone Hcl Nasal Take Home 4 Mg [place] NOSTRILALT 12/16/23 07:01 8 mg ONCE ONE Administration Nicotine 14 mg 12/07/23 21:03 12/07/23 21:07 Nicotine 14 Mg Patch.Td24 TRANSDERMA 12/07/23 21:04 14 mg ONCE ONE Administration Nicotine 14 mg 12/07/23 23:45 12/08/23 00:59 Nicotine 14 Mg Patch.Td24 TRANSDERMA Not Given Q24H RISSA Nicotine 14 mg 12/08/23 09:00 12/08/23 12:52 Nicotine 14 Mg Patch.Td24 TRANSDERMA 14 mg DAILY RISSA Administration Nicotine 14 mg 12/08/23 13:19 12/15/23 11:15 Nicotine 14 Mg Patch.Td24 TRANSDERMA 14 mg DAILY PRN Administration smoking cessation Nicotine Polacrilex 4 mg 12/08/23 12:56 12/16/23 06:32 Nicotine Polacrilex Lozenge 4 Mg Lozenge BUCCAL 4 mg Q2H PRN Administration Nicotine Cravings Ondansetron HCl 4 mg 12/09/23 16:40 12/09/23 16:51 Ondansetron Odt 4 Mg Tab.Rapdis TRANSLINGU 12/09/23 16:41 4 mg ONCE ONE Administration Paliperidone 9 mg 12/08/23 09:00 12/16/23 08:45 Paliperidone Er 9 Mg Tab.Er.24 PO 9 mg DAILY RISSA Administration Prazosin HCl 2 mg 12/07/23 23:45 12/15/23 21:24 Prazosin Hcl 1 Mg Capsule PO 2 mg BEDTIME RISSA Administration Protocol Sertraline HCl 50 mg 12/07/23 09:00 12/12/23 08:43 Sertraline Hcl 50 Mg Tablet PO 50 mg DAILY RISSA Administration Trazodone HCl 50 mg 12/07/23 23:57 12/08/23 02:17 Trazodone Hcl 50 Mg Tablet PO 50 mg BEDTIME PRN Administration insomnia Trazodone HCl 50 mg 12/08/23 13:19 12/12/23 21:16 Trazodone Hcl 50 Mg Tablet PO 50 mg BEDTIME MRX1 PRN Administration Insomnia Trazodone HCl 100 mg 12/13/23 21:00 12/15/23 21:24 Trazodone Hcl 100 Mg Tablet PO 100 mg BEDTIME RISSA Administration Medical Decision Making Medical Decision Making [facility] Narrative: 43-year-old male presents for evaluation of suicidal ideation with recent attempts as well as relapse of polysubstance abuse. Plan for medical clearance, given that he reported hang himself yesterday and has ecchymosis consistent with a generalized when he had a CT of the cervical spine. Plan for labs, drug screen and chest x-ray as well for medical clearance Differential Diagnosis Differential Diagnoses: The differential diagnosis associated with the presentation includes Polysubstance abuse Depression Anxiety Suicidal ideation Cervical strain Lab Data 12/07/23 17:50 12/07/23 17:50 Labs: Lab Results 12/07/23 12/07/23 Range/Units 16:37 17:50 WBC 5.3 (4.8-10.8) X10*3/uL RBC 4.96 D (4.60-5.80) X10*6/uL Hgb 14.0 D (14.0-18.0) g/dl Hct 42.1 D (42.0-52.0) % MCV 84.9 (80.0-98.0) fL MCH 28.2 (27.0-33.0) pg MCHC 33.3 (31.0-36.0) g/dl RDW 13.3 (11.0-16.0) % Plt Count 210 (160-400) X10*3/uL MPV 10.8 (9.4-12.4) fL Immature Gran % (Auto) 0.4 (0.0-0.4) % Neut % (Auto) 55.7 (45-73) % Lymph % (Auto) 34.5 (20-40) % [place] % (Auto) 8.4 (2-11) % Eos % (Auto) 0.6 (0-4) % Baso % (Auto) 0.4 (0-2) % Lymph # (Auto) 1.8 (1.2-4.9) X10*3/uL [place] # (Auto) 0.5 (0.1-1.2) X10*3/uL Eos # (Auto) 0.0 (0.0-0.4) X10*3/uL Baso # (Auto) 0.0 (0.0-0.2) X10*3/uL Abs Immat Gran (auto) 0.02 (0.00-0.03) X10*3/uL Absolute Neuts (auto) 3.0 (2.0-8.3) x10*3/uL Absolute Nucleated RBC 0.000 (0.0-0.012) X10*3/uL Nucleated RBC % (auto) 0.0 (0.0-0.2) /100WBC Sodium 136 (135-145) mmol/L Potassium 4.0 (3.3-5.1) mmol/L Chloride 103 (96-108) mmol/L Carbon Dioxide 21 L (22-29) mmol/L Anion Gap 16 (12-20) BUN 13 (9-16) mg/dL Creatinine 0.76 (0.5-1.4) mg/dL Estim Creat Clear Calc 111.8 Estimated GFR > 60 Random Glucose 92 (60-115) mg/dL Calcium 9.6 (8.4-10.2) mg/dL Total Bilirubin 0.5 (0.0-1.0) mg/dL AST 77 H (5-37) U/L ALT 46 H (0-40) U/L Alkaline Phosphatase 91 (39-117) U/L Total Protein 8.2 H (6.5-8.0) g/dL Albumin 4.3 (3.5-5.0) g/dL Urine Color Dark Yellow Urine Appearance Clear Urine pH 6.0 (5.0-9.0) Ur Specific [place] 1.025 (1.005-1.025) Urine Protein 30 (1+) H (Neg-Trace) mg/dL Urine Glucose (UA) Negative (Negative) mg/dL Urine Ketones Trace (Negative) mg/dL Urine Blood Negative (Negative) Urine Nitrite Negative (Negative) Ur Leukocyte Esterase Negative (Negative) Urine RBC 0-2 (0-2) /HPF Urine WBC 0-5 (0-5) /HPF Ur Squamous Epith Cells 0-2 (0-2) /HPF Urine Bacteria None Seen (None Seen) Hyaline Casts 3-5 (0-2) /LPF Urine Opiates Screen POSITIVE H (Not Detect) Ur Buprenorphine Scrn Positive H (Not Detect) ng/mL Ur Oxycodone Screen Not Detected (Not Detect) ng/mL Urine Methadone Screen Positive H (Not Detect) ng/mL Urine Fentanyl Screen POSITIVE H (Not Detect) Ur Barbiturates Screen Not Detected (Not Detect) Ur Phencyclidine Scrn Not Detected (Not Detect) Ur Amphetamines Screen Not Detected (Not Detect) U Benzodiazepines Scrn Not Detected (Not Detect) Urine Cocaine Screen POSITIVE H (Not Detect) U Marijuana (THC) Screen POSITIVE H (Not Detect) Ethyl Alcohol 114 mg/dL Discharge Plan Discharge Clinical Impression: Substance abuse, Depression with suicidal ideation Patient Disposition: Still a Patient Interventions: Admission Worksheet (ED) Last Done: 12/08/23 14:48 Discharge Date/Time: 12/08/23 15:03
[2023-12-07] MEDS: LORazepam 1 MG TABLET PO (19:48)
[2023-12-07] MEDS: Nicotine 14 MG PATCH.TD24 TRANSDERMA (21:07)
--- NOTE | 2023-12-07 21:46 | PC.NURSE ---
client just now went into the entryway of another clients room after being redirected about 3-4 minutes before. client responded to t/w as if he were yelled at . client claimed to be hallucinating.
--- NOTE | 2023-12-07 21:48 | PC.NURSE ---
client seems to be attempting to agitate staff by reporting insults to peer on a phone.
--- NOTE | 2023-12-07 23:16 | PC.NURSE ---
late entry-t/w gave pudding to client and patient seems calmer, no antagonistice behavior. patient was just redirected now regarding phone use after he just spoke to care team and apparently is now an inpatient bed search.
[2023-12-08] MEDS: traZODone HCL 50 MG TABLET PO ×2 (02:17→21:01)
[2023-12-08 06:14] VITALS: BP 98/60; PULSE 60; RESP 18; TEMP 36.6; O2SAT 97
--- NOTE | 2023-12-08 06:47 | HE.PHANOTE ---
RE METHADONE LAST DOSE 95 MG GIVEN 12/07/23 @[facility]
--- NOTE | 2023-12-08 08:13 | PHA.MEDREC ---
Addendum entered by Darlene Waddell RPh 12/08/23 08:40: Reviewed by [facility]. Original Note: Pharmacy Consult ? Medication Reconciliation Pharmacy has reviewed the medication reconciliation done by nursing.
--- NOTE | 2023-12-08 09:02 | ECG_ITS ---
Test Reason : check qt interval Blood Pressure : / mmHG Vent. Rate : 060 BPM Atrial Rate : 060 BPM P-R Int : 128 ms QRS Dur : 092 ms QT Int : 450 ms P-R-T Axes : 053 051 062 degrees QTc Int : 450 ms Normal sinus rhythm Normal ECG When compared with ECG of 14-OCT-2022 15:28, No significant change was found Referred By: Tristen Guan Electronically Signed By:TREVER TRACEY
--- NOTE | 2023-12-08 09:40 | PC.NURSE ---
Has been sleeping since this RN arrival.
[2023-12-08] MEDS: Paliperidone ER 9 MG TAB.ER.24 PO (10:56)
[2023-12-08] MEDS: Sertraline HCL 50 MG TABLET PO (10:56)
[2023-12-08] MEDS: Amphetamine Mixed Salts 20 MG TABLET PO ×2 (10:56→14:12)
[2023-12-08] MEDS: methADONE HCl 20 MG/2 ML ORAL.CONC 95 MG PO (10:58)
[2023-12-08] MEDS: LORazepam 1 MG TABLET 2 MG PO ×3 (11:03→20:26)
--- NOTE | 2023-12-08 11:06 | PC.NURSE ---
Pt is awake, ambulatory. Requested Ativan for withdrawal sx. Awaits bed placement. calm and cooperative but fidgety.
[2023-12-08] MEDS: Nicotine 14 MG PATCH.TD24 TRANSDERMA (12:52)
[2023-12-08 14:23] VITALS: BP 117/80; PULSE 77; RESP 16; TEMP 36.6; O2SAT 97
--- NOTE | 2023-12-08 14:48 | PC.NURSE ---
Rn To RN with [facility]
[2023-12-08] MEDS: Nicotine Polacrilex Lozenge 4 MG LOZENGE BUCCAL (17:20)
[2023-12-08] MEDS: LORazepam 1 MG TABLET PO (18:34)
--- NOTE | 2023-12-08 18:40 | PC.ADMIT ---
Addendum entered by Steph Garibay RN 12/08/23 19:47: Jaswinder is a 43 year old male who arrived to [facility] at 14:57 for treatment of depression and SI, Jaswinder's last admit to [facility] was in 08/29. Jaswinder has been feeling depressed with suicidal ideation for about 2 months. He reports his symptoms started after he was diagnosed with ?lung nodules at a different facility He reports that he has intermittently been coughing up blood. A spinal CT and chest xray were performed at [facility] with no abnormal findings. Jaswinder states that these diagnosis' are the primary reason behind his increased depression and anxiety and also reports that he attempted to hang himself yesterday, there is some bruising noted around his neck and Jaswinder was coperative with skin check, multiple bruises noted, small reddened areas on his hands, no warmth noted. Jaswinder says that he relapsed recently with cocaine and alcohol with last use 2 days ago. Tox screen positive for cocaine, fentanyl, suboxone, MTD, and opiates. Jaswinder is currently endorsing SI with no plan, no HI, says currently he is seeing shadows as well as having AH. Jaswinder presents highly anxious. CIWA q4 plus ativan bid for anxiety. placed on 15 minute checks for safety. Original Note: Jaswinder is a 43 year old male who arrived on [facility] [place] [facility] at 14:57 for depression and SI. Jaswinder's last admit to [facility] was in 08/29. Jasiwnder has been feeling depressed with suicidal ideation for about 2 months. He reports his symptoms started after he was diagnosed with ?lung nodules at a different facility He reports that he has intermittently been coughing up blood. A spinal CT and chest xray were performed at [facility] with no abnormal findings, He states that this is the primary driving for shows increased anxiety and depression and reports that he attempted to hang himself yesterday- there is some bruising around his neck (CT normal). Jaswinder endorses relapse with polysubstance abuse including cocaine, alcohol, tox screen positive for cocaine, fentanyl, suboxone, methadone and opiates. Jaswinder was coperative with skin check, multiple bruises noted, small reddened areas on his hands, no warmth noted He reports he last use 2 days ago, alcohol and cocaine reported. Jaswinder presents highly anxious. CIWA q4 plus ativan bid for anxiety. placed on 15 minute checks for safety
[2023-12-08 20:00] VITALS: BP 106/60; PULSE 98; RESP 16; TEMP 36.6; TEMP 36.7; O2SAT 98
[2023-12-08 20:26] VITALS: BP 106/60
[2023-12-08] MEDS: Prazosin HCL 1 MG CAPSULE 2 MG PO (20:26)
[2023-12-09 08:15] VITALS: BP 126/78; PULSE 94; RESP 18; TEMP 36.4; O2SAT 99
[2023-12-09] MEDS: methADONE HCl 20 MG/2 ML ORAL.CONC 95 MG PO (08:20)
[2023-12-09] MEDS: Sertraline HCL 50 MG TABLET PO (08:22)
[2023-12-09] MEDS: Nicotine 14 MG PATCH.TD24 TRANSDERMA (08:22)
[2023-12-09] MEDS: Nicotine Polacrilex Lozenge 4 MG LOZENGE BUCCAL ×3 (08:22→14:57)
[2023-12-09] MEDS: Paliperidone ER 9 MG TAB.ER.24 PO (08:22)
[2023-12-09] MEDS: Amphetamine Mixed Salts 20 MG TABLET PO ×2 (08:22→12:04)
[2023-12-09] MEDS: LORazepam 1 MG TABLET 2 MG PO ×3 (08:31→19:57)
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
[2023-12-09] MEDS: Acetaminophen 325 MG TABLET 650 MG PO (12:05)
[2023-12-09] MEDS: LORazepam 1 MG TABLET PO ×2 (13:02→14:56)
[2023-12-09] MEDS: Ondansetron ODT 4 MG TAB.RAPDIS TRANSLINGU (16:51)
--- NOTE | 2023-12-09 16:59 | PM.EVENT ---
Event Note Date of Service: 12/09/23 Event Note: Addiction consult placed for patient with AUD and OUD Chart review shows patient currently prescribed methadone 95mg daily CIWA in place Patient to be seen 9/3 Time Spent With Patient Time: Total time managing care of this patient today ____ minutes.
[2023-12-09 19:56] VITALS: BP 120/76
[2023-12-09] MEDS: Prazosin HCL 1 MG CAPSULE 2 MG PO (19:56)
[2023-12-09] MEDS: traZODone HCL 50 MG TABLET PO (19:57)
--- NOTE | 2023-12-10 06:15 | PC.NURSE ---
Patient has a CT of the chest without contrast ordered for today, due to the presence of nodules on his right lung.
[2023-12-10] MEDS: methADONE HCl 20 MG/2 ML ORAL.CONC 95 MG PO (07:39)
[2023-12-10] MEDS: Paliperidone ER 9 MG TAB.ER.24 PO (08:01)
[2023-12-10] MEDS: Amphetamine Mixed Salts 20 MG TABLET PO ×2 (08:01→12:00)
[2023-12-10] MEDS: Sertraline HCL 50 MG TABLET PO (08:01)
[2023-12-10] MEDS: LORazepam 1 MG TABLET 2 MG PO ×3 (08:01→20:06)
[2023-12-10] MEDS: Nicotine Polacrilex Lozenge 4 MG LOZENGE BUCCAL ×3 (08:01→15:47)
[2023-12-10] MEDS: Nicotine 14 MG PATCH.TD24 TRANSDERMA (08:01)
[2023-12-10 08:16] VITALS: BP 128/71; PULSE 84; RESP 18; TEMP 36.4; O2SAT 99
[2023-12-10 08:21] LABS: Estimated Average Glucose 100 mg/dL; Hemoglobin A1C 112.5796 umol/L; Hemoglobin A1c % 5.1 % (<6.0)
[2023-12-10 08:31] LABS: Cholesterol 138 mg/dL (<200); HDL Cholesterol 70 mg/dL (>40); LDL Cholesterol Calculated 54 mg/dL (<100); Triglycerides 72 mg/dL (<150)
[2023-12-10 08:45] LABS: Thyroid Stimulating Hormone 1.11 uIU/mL (0.32-4.0)
[2023-12-10 09:00] LABS: Folate 14.6 ng/mL (> or = 4.0); Vitamin B12 492 pg/mL (200-900)
[2023-12-10] MEDS: hydrOXYzine HCL 25 MG TABLET PO (11:18)
--- NOTE | 2023-12-10 16:13 | HO.PSYCHPN ---
Subjective Subjective Date of Service: 12/10/23 Reason For Visit: Depression Subjective Notes: Conditional Voluntary Healthcare Proxy: No Guardianship: No Medical Problems Affecting Mental Status: No Interim History: Feeling improved. Agrees to repeat CAT scan of chest as CXR is negative. Walking, visable in milieu and supportive of room-mate. Tolerating medications, no current adverse effects. Medication Compliance: Yes Side effects from medications: No Attending Groups: Intermittent Review of Systems Acute medical concerns: No Review of Systems Review of Systems Yes all other systems are reviewed and are negative Mental Status Exam Mental Status Exam Patient Appearance: Appropriate Patient Orientation: Person, Place, Time and Situation Level of Consciousness: Alert Patient Behavior: Appropriate, Talkative, Cooperative and Good Eye Contact Mood Description: Depressed Affect Description: Flat Patient Cognition Impaired: No Ability to Follow Directions: Good Speech Pattern: Spontaneous Speech Memory Description: Episodic Impaired Hallucinations: Auditory and Visual Perceptual Disturbances: Depersonalization and Derealization Thought Process: Rumination Thought Content: positive for Perseveration and positive for Suicidal Ideation Depressive Symptoms: Increased Anxiety, Difficulty Sleeping, Significant Weight Loss, Increased Fatigue, Thoughts of /Suicide and Loss of Energy Judgement: Fair Diagnostics Vital Signs (24Hr): Vital Signs - 24 hr 12/09/23 19:56 12/10/23 08:16 Temperature 97.5 F Pulse Rate 84 Respiratory Rate 18 Blood Pressure 120/76 128/71 Pulse Oximetry 99 Oxygen Delivery Method Room Air BMI result Body Mass Index 19.3 Labs 12/07/23 17:50 12/07/23 17:50 Labs: Laboratory Results - last 48 hr 12/10/23 07:38 Estimat Average Glucose 100 Hemoglobin A1c % 5.1 Triglycerides 72 Cholesterol 138 LDL Cholesterol, Calc 54 HDL Cholesterol 70 Vitamin B12 492 Folate 14.6 TSH 1.11 Imaging Radiology Impressions: ITS Impressions Cervical Spine CT 12/07/23 17:51 IMPRESSION: Unremarkable examination. Fleischner guidelines were followed. Electronically signed by: Mateo Ha MD 12/07/2023 09:27 PM EDT RP Chest X-Ray 12/07/23 17:51 IMPRESSION: Hyperinflation. No acute cardiopulmonary disease. Electronically signed by: Charly Lambert MD 12/07/2023 08:51 PM EDT RP Medications Medications Current Medications Acetaminophen (Acetaminophen 325 Mg Tablet) 650 mg PO Q6H PRN PRN Reason: Headache/Pain Mild Scale (1-3) Last Admin: 12/09/23 12:05 Dose: 650 mg Al Hydroxide/Mg Hydroxide (Magnesium Hydrox/Alum Hydrox 30 Ml Oral.Susp) 30 ml PO Q6H PRN PRN Reason: Heartburn/Nausea Amphetamine/Dextroamphetamine (Amphetamine Mixed Salts 20 Mg Tablet) 20 mg PO BID@0900,1300 [facility] Last Admin: 12/10/23 12:00 Dose: 20 mg Hydroxyzine HCl (Hydroxyzine Hcl 25 Mg Tablet) 25 mg PO Q6H PRN PRN Reason: Anxiety Last Admin: 12/10/23 11:18 Dose: 25 mg Lorazepam (Lorazepam 1 Mg Tablet) 2 mg PO TID [facility] Last Admin: 12/10/23 14:07 Dose: 2 mg Magnesium Hydroxide (Milk Of Magnesia 30 Ml Oral.Susp) 30 ml PO DAILY PRN PRN Reason: Constipation Methadone HCl (Methadone Hcl 20 Mg/2 Ml Oral.Conc) 95 mg PO DAILY [facility] Last Admin: 12/10/23 07:39 Dose: 95 mg Nicotine (Nicotine 14 Mg Patch.Td24) 14 mg TRANSDERMA DAILY PRN PRN Reason: smoking cessation Last Admin: 12/10/23 08:01 Dose: 14 mg Nicotine Polacrilex (Nicotine Polacrilex Lozenge 4 Mg Lozenge) 4 mg BUCCAL Q2H PRN PRN Reason: Nicotine Cravings Last Admin: 12/10/23 15:47 Dose: 4 mg Paliperidone (Paliperidone Er 9 Mg Tab.Er.24) 9 mg PO DAILY [facility] Last Admin: 12/10/23 08:01 Dose: 9 mg Prazosin HCl (Prazosin Hcl 1 Mg Capsule) 2 mg PO BEDTIME [facility]; Protocol Last Admin: 12/09/23 19:56 Dose: 2 mg Sertraline HCl (Sertraline Hcl 50 Mg Tablet) 50 mg PO DAILY [facility] Last Admin: 12/10/23 08:01 Dose: 50 mg Trazodone HCl (Trazodone Hcl 50 Mg Tablet) 50 mg PO BEDTIME MRX1 PRN PRN Reason: Insomnia Last Admin: 12/09/23 19:57 Dose: 50 mg Allergies Allergies Allergy/AdvReac Type Severity Reaction Status Date / Time tomato [Tomato] Allergy Severe DIFFICULTY Verified 08/29/24 16:29 BREATHING, swelling of face and throat divalproex sodium Allergy Mild SEIZURES Verified 12/07/23 16:29 [From Depakote] olanzapine [From Zyprexa] Allergy Mild NIPPLES Verified 12/07/23 16:29 LEAK risperidone [From Risperdal] Allergy Mild UNKNOWN Verified 12/07/23 16:29 quetiapine [From SEROQUEL] Allergy Unknown HEART Verified 12/07/23 16:29 PALPITATIONS lithium [[place]] AdvReac Mild STOMACH Verified 12/07/23 16:29 PAIN aripiprazole [From ABILIFY] AdvReac Unknown DYSTONIA Verified 12/07/23 16:29 Assessment & Plan Assessment & Plan (1) Opioid use disorder, severe, dependence: Status: Acute Code(s): F11.20 - Opioid dependence, uncomplicated (2) Alcohol use disorder, severe, dependence: Status: Acute Code(s): F10.20 - Alcohol dependence, uncomplicated (3) Substance abuse: Status: Acute Code(s): F19.10 - Other psychoactive substance abuse, uncomplicated (4) Schizoaffective disorder, depressive type: Status: Acute Code(s): F25.1 - Schizoaffective disorder, depressive type Plan Schizoaffective Disorder, Depressed. Polysubstance use disorder. PTSD Plan: Admit, CV, 15 minute checks Re-establish med regime Diagnostics Collateral contact Detox Full milieu encouraged 12/09- Continue tx Reason for continued inpatient stay Substantial Risk for: rapid decompensation Time Spent With Patient Time: Total time managing care of this patient today ____ minutes.
[2023-12-10 20:00] VITALS: BP 135/75; PULSE 84; TEMP 36.7; O2SAT 99
[2023-12-10] MEDS: traZODone HCL 50 MG TABLET PO (20:06)
[2023-12-10] MEDS: Prazosin HCL 1 MG CAPSULE 2 MG PO (20:06)
[2023-12-11 05:03] LABS: TS Negative Control Passed; TS Panel A 0; TS Panel B 0; TS Positive Control Passed; TSpotTB Negative (Negative)
[2023-12-11] MEDS: methADONE HCl 20 MG/2 ML ORAL.CONC 95 MG PO (07:39)
[2023-12-11 08:13] VITALS: BP 114/64; PULSE 87; RESP 16; TEMP 36.1; O2SAT 99
--- NOTE | 2023-12-11 08:32 | P.PNPSI_ITS ---
Subjective Subjective Date of Service: 12/11/23 Reason For Visit: Depression Subjective Notes: Conditional Voluntary Healthcare Proxy: No Guardianship: No Medical Problems Affecting Mental Status: No Interim History: Continues to report gradual improvement. Tolerating regime, visable in milieu, social with peers. Repeat CAT with 3.5 cm nodule R upper lobe. Team questions ongoing infection/inflammation and suggest repeat in 3-6 months with bilateral pulmonary nodules. [facility] did send CAT to compare which was completed in October. Medication Compliance: Yes Side effects from medications: No Attending Groups: Intermittent Review of Systems Acute medical concerns: No Review of Systems Review of Systems Yes all other systems are reviewed and are negative Mental Status Exam Mental Status Exam Patient Appearance: Appropriate Patient Orientation: Person, Place, Time and Situation Level of Consciousness: Alert Patient Behavior: Appropriate, Talkative, Cooperative and Good Eye Contact Mood Description: Depressed Affect Description: Flat Patient Cognition Impaired: No Ability to Follow Directions: Good Speech Pattern: Spontaneous Speech Memory Description: Episodic Impaired Hallucinations: Auditory and Visual Perceptual Disturbances: Depersonalization and Derealization Thought Process: Rumination Thought Content: positive for Perseveration and positive for Suicidal Ideation Depressive Symptoms: Increased Anxiety, Difficulty Sleeping, Significant Weight Loss, Increased Fatigue, Thoughts of /Suicide and Loss of Energy Judgement: Fair Diagnostics Vital Signs (24Hr): Vital Signs - 24 hr 12/10/23 20:00 12/11/23 08:13 Temperature 98.0 F 96.9 F Pulse Rate 84 87 Respiratory Rate 16 Blood Pressure 135/75 114/64 Pulse Oximetry 99 99 Oxygen Delivery Method Room Air Room Air BMI result Body Mass Index 19.3 Labs 12/07/23 17:50 12/07/23 17:50 Labs: Laboratory Results - last 48 hr 12/08/23 12/10/23 13:45 07:38 Estimat Average Glucose 100 Hemoglobin A1c % 5.1 Triglycerides 72 Cholesterol 138 LDL Cholesterol, Calc 54 HDL Cholesterol 70 Vitamin B12 492 Folate 14.6 TSH 1.11 TB Test (T-Spot) Com Negative TB Test Nil Control Passed TB Test Panel A 0 TB Test Panel B 0 TB Test Positive Cntrl Passed Imaging Radiology Impressions: ITS Impressions Cervical Spine CT 12/07/23 17:51 IMPRESSION: Unremarkable examination. Fleischner guidelines were followed. Electronically signed by: Mateo Ha MD 12/07/2023 09:27 PM EDT RP Chest X-Ray 12/07/23 17:51 IMPRESSION: Hyperinflation. No acute cardiopulmonary disease. Electronically signed by: Charly Lambert MD 12/07/2023 08:51 PM EDT RP Chest CT 12/10/23 09:56 IMPRESSION: 1. 3.5 cm region of consolidation/groundglass attenuation in the subpleural region of the lateral right upper lobe. This may be infectious/inflammatory in etiology. Recommend short interval follow-up in 3-6 months. 2. Additional bilateral pulmonary nodules measuring up to 4 mm. Fleischner guidelines were followed. Electronically signed by: Sarahi Jiménez MD 12/11/2023 07:33 AM EDT RP Medications Medications Current Medications Acetaminophen (Acetaminophen 325 Mg Tablet) 650 mg PO Q6H PRN PRN Reason: Headache/Pain Mild Scale (1-3) Last Admin: 12/09/23 12:05 Dose: 650 mg Al Hydroxide/Mg Hydroxide (Magnesium Hydrox/Alum Hydrox 30 Ml Oral.Susp) 30 ml PO Q6H PRN PRN Reason: Heartburn/Nausea Amphetamine/Dextroamphetamine (Amphetamine Mixed Salts 20 Mg Tablet) 20 mg PO BID@0900,1300 [facility] Last Admin: 12/10/23 12:00 Dose: 20 mg Hydroxyzine HCl (Hydroxyzine Hcl 25 Mg Tablet) 25 mg PO Q6H PRN PRN Reason: Anxiety Last Admin: 12/10/23 11:18 Dose: 25 mg Lorazepam (Lorazepam 1 Mg Tablet) 2 mg PO TID [facility] Last Admin: 12/10/23 20:06 Dose: 2 mg Magnesium Hydroxide (Milk Of Magnesia 30 Ml Oral.Susp) 30 ml PO DAILY PRN PRN Reason: Constipation Methadone HCl (Methadone Hcl 20 Mg/2 Ml Oral.Conc) 95 mg PO DAILY [facility] Last Admin: 12/11/23 07:39 Dose: 95 mg Nicotine (Nicotine 14 Mg Patch.Td24) 14 mg TRANSDERMA DAILY PRN PRN Reason: smoking cessation Last Admin: 12/10/23 08:01 Dose: 14 mg Nicotine Polacrilex (Nicotine Polacrilex Lozenge 4 Mg Lozenge) 4 mg BUCCAL Q2H PRN PRN Reason: Nicotine Cravings Last Admin: 12/10/23 15:47 Dose: 4 mg Paliperidone (Paliperidone Er 9 Mg Tab.Er.24) 9 mg PO DAILY RISSA Last Admin: 12/10/23 08:01 Dose: 9 mg Prazosin HCl (Prazosin Hcl 1 Mg Capsule) 2 mg PO BEDTIME RISSA; Protocol Last Admin: 12/10/23 20:06 Dose: 2 mg Sertraline HCl (Sertraline Hcl 50 Mg Tablet) 50 mg PO DAILY RISSA Last Admin: 12/10/23 08:01 Dose: 50 mg Trazodone HCl (Trazodone Hcl 50 Mg Tablet) 50 mg PO BEDTIME MRX1 PRN PRN Reason: Insomnia Last Admin: 12/10/23 20:06 Dose: 50 mg Allergies Allergies Allergy/AdvReac Type Severity Reaction Status Date / Time tomato [Tomato] Allergy Severe DIFFICULTY Verified 12/07/23 16:29 BREATHING, swelling of face and throat divalproex sodium Allergy Mild SEIZURES Verified 12/07/23 16:29 [From Depakote] olanzapine [From Zyprexa] Allergy Mild NIPPLES Verified 12/07/23 16:29 LEAK risperidone [From Risperdal] Allergy Mild UNKNOWN Verified 12/07/23 16:29 quetiapine [From SEROQUEL] Allergy Unknown HEART Verified 12/07/23 16:29 PALPITATIONS lithium [[place]] AdvReac Mild STOMACH Verified 12/07/23 16:29 PAIN aripiprazole [From ABILIFY] AdvReac Unknown DYSTONIA Verified 12/07/23 16:29 Assessment & Plan Assessment & Plan (1) Opioid use disorder, severe, dependence: Status: Acute Code(s): F11.20 - Opioid dependence, uncomplicated (2) Alcohol use disorder, severe, dependence: Status: Acute Code(s): F10.20 - Alcohol dependence, uncomplicated (3) Substance abuse: Status: Acute Code(s): F19.10 - Other psychoactive substance abuse, uncomplicated (4) Schizoaffective disorder, depressive type: Status: Acute Code(s): F25.1 - Schizoaffective disorder, depressive type Plan Schizoaffective Disorder, Depressed. Polysubstance use disorder. PTSD Plan: Admit, CV, 15 minute checks Re-establish med regime Diagnostics Collateral contact Detox Full milieu encouraged 12/10- Continue tx. Reason for continued inpatient stay Substantial Risk for: rapid decompensation Time Spent With Patient Time: Total time managing care of this patient today ____ minutes.
[2023-12-11] MEDS: Sertraline HCL 50 MG TABLET PO (08:56)
[2023-12-11] MEDS: Amphetamine Mixed Salts 20 MG TABLET PO ×2 (08:56→13:13)
[2023-12-11] MEDS: Paliperidone ER 9 MG TAB.ER.24 PO (08:56)
[2023-12-11] MEDS: LORazepam 1 MG TABLET 2 MG PO ×3 (08:57→20:18)
[2023-12-11] MEDS: Nicotine 14 MG PATCH.TD24 TRANSDERMA (09:09)
[2023-12-11] MEDS: Nicotine Polacrilex Lozenge 4 MG LOZENGE BUCCAL ×3 (09:09→13:14)
[2023-12-11 19:46] VITALS: BP 117/75; PULSE 122; RESP 16; TEMP 36; O2SAT 99
[2023-12-11] MEDS: Prazosin HCL 1 MG CAPSULE 2 MG PO (20:18)
[2023-12-11] MEDS: traZODone HCL 50 MG TABLET PO (20:19)
[2023-12-12] MEDS: methADONE HCl 20 MG/2 ML ORAL.CONC 95 MG PO (07:53)
[2023-12-12 08:00] VITALS: BP 104/66; PULSE 109; RESP 16; TEMP 36.4; O2SAT 98
[2023-12-12] MEDS: Paliperidone ER 9 MG TAB.ER.24 PO (08:42)
[2023-12-12] MEDS: Amphetamine Mixed Salts 20 MG TABLET PO ×2 (08:42→12:09)
[2023-12-12] MEDS: LORazepam 1 MG TABLET 2 MG PO (08:42)
[2023-12-12] MEDS: Sertraline HCL 50 MG TABLET PO (08:43)
[2023-12-12] MEDS: Nicotine 14 MG PATCH.TD24 TRANSDERMA (08:44)
[2023-12-12] MEDS: Nicotine Polacrilex Lozenge 4 MG LOZENGE BUCCAL ×2 (08:45→12:09)
--- NOTE | 2023-12-12 09:40 | HO.PSYCHPN ---
Subjective Subjective Date of Service: 12/12/23 Reason For Visit: Depression Interim History: Met with patient; discussed with team; reviewed chart Patient reports often on sober for over year, being sober for 3 months and then relapsing for week; said combination of concern for cancer diagnosis and girlfriend's miscarriage overwhelmed him and he relapsed with cocaine/alcohol. He says methadone has been helping him otherwise. Patient wants help with aftercare so he can stay sober. Feels that medications overall work and help his mood; however he complains of ongoing anxiety and sometimes near panic attack making a hard to drive. Does not want Zoloft increased since it can cause low libido; understands that a 50 mg off not doing much and agrees to switch to Lexapro Reviewed CT chest and discussed results with patient; he remains very anxious that he has cancer. Put in pulmonary consult for recommendations regarding further workup Mental Status Exam Mental Status Exam Narrative: Pt is alert and oriented; behavior is cooperative, friendly and calm; patient is not in distress; dressed in casual attire and adequately groomed with good hygiene; tattooed legs arms; shaved head; cachectic; ; mood is described as anxious and affect congruent; eye contact appropriate; Speech is normal rate, volume and prosody and not pressured; no psychomotor agitation/retardation present; thought process is organized and goal directed; Thought content is on tx, worried about cancer; otherwise pertinent to relevant topics and without any delusional content, paranoid ideations or grandiosity; denies any SI/HI. Intermittent AH but minimal Patients insight and judgment impaired but improving Diagnostics Vital Signs (24Hr): Vital Signs - 24 hr 12/11/23 19:46 12/12/23 08:00 Temperature 96.8 F 97.6 F Pulse Rate 122 H 109 H Respiratory Rate 16 16 Blood Pressure 117/75 104/66 Pulse Oximetry 99 98 Oxygen Delivery Method Room Air Room Air BMI result Body Mass Index 19.3 Labs 12/07/23 17:50 12/07/23 17:50 Labs: Laboratory Results - last 48 hr 12/08/23 13:45 TB Test (T-Spot) Com Negative TB Test Nil Control Passed TB Test Panel A 0 TB Test Panel B 0 TB Test Positive Cntrl Passed Imaging Radiology Impressions: ITS Impressions Cervical Spine CT 12/07/23 17:51 IMPRESSION: Unremarkable examination. Fleischner guidelines were followed. Electronically signed by: Mateo Ha MD 12/07/2023 09:27 PM EDT RP Chest X-Ray 12/07/23 17:51 IMPRESSION: Hyperinflation. No acute cardiopulmonary disease. Electronically signed by: Charly Lambert MD 12/07/2023 08:51 PM EDT RP Chest CT 12/10/23 09:56 IMPRESSION: 1. 3.5 cm region of consolidation/groundglass attenuation in the subpleural region of the lateral right upper lobe. This may be infectious/inflammatory in etiology. Recommend short interval follow-up in 3-6 months. 2. Additional bilateral pulmonary nodules measuring up to 4 mm. Fleischner guidelines were followed. Electronically signed by: Sarahi Jiménez MD 12/11/2023 07:33 AM EDT RP Medications Medications Current Medications Acetaminophen (Acetaminophen 325 Mg Tablet) 650 mg PO Q6H PRN PRN Reason: Headache/Pain Mild Scale (1-3) Last Admin: 12/09/23 12:05 Dose: 650 mg Al Hydroxide/Mg Hydroxide (Magnesium Hydrox/Alum Hydrox 30 Ml Oral.Susp) 30 ml PO Q6H PRN PRN Reason: Heartburn/Nausea Amphetamine/Dextroamphetamine (Amphetamine Mixed Salts 20 Mg Tablet) 20 mg PO BID@0900,1300 [facility] Last Admin: 12/12/23 08:42 Dose: 20 mg Hydroxyzine HCl (Hydroxyzine Hcl 25 Mg Tablet) 25 mg PO Q6H PRN PRN Reason: Anxiety Last Admin: 12/10/23 11:18 Dose: 25 mg Lorazepam (Lorazepam 1 Mg Tablet) 2 mg PO TID [facility] Last Admin: 12/12/23 08:42 Dose: 2 mg Magnesium Hydroxide (Milk Of Magnesia 30 Ml Oral.Susp) 30 ml PO DAILY PRN PRN Reason: Constipation Methadone HCl (Methadone Hcl 20 Mg/2 Ml Oral.Conc) 95 mg PO DAILY [facility] Last Admin: 12/12/23 07:53 Dose: 95 mg Nicotine (Nicotine 14 Mg Patch.Td24) 14 mg TRANSDERMA DAILY PRN PRN Reason: smoking cessation Last Admin: 12/12/23 08:44 Dose: 14 mg Nicotine Polacrilex (Nicotine Polacrilex Lozenge 4 Mg Lozenge) 4 mg BUCCAL Q2H PRN PRN Reason: Nicotine Cravings Last Admin: 12/12/23 08:45 Dose: 4 mg Paliperidone (Paliperidone Er 9 Mg Tab.Er.24) 9 mg PO DAILY [facility] Last Admin: 12/12/23 08:42 Dose: 9 mg Prazosin HCl (Prazosin Hcl 1 Mg Capsule) 2 mg PO BEDTIME RIS[facility]; Protocol Last Admin: 12/11/23 20:18 Dose: 2 mg Sertraline HCl (Sertraline Hcl 50 Mg Tablet) 50 mg PO DAILY [facility] Last Admin: 12/12/23 08:43 Dose: 50 mg Trazodone HCl (Trazodone Hcl 50 Mg Tablet) 50 mg PO BEDTIME MRX1 PRN PRN Reason: Insomnia Last Admin: 12/11/23 20:19 Dose: 50 mg Allergies Allergies Allergy/AdvReac Type Severity Reaction Status Date / Time tomato [Tomato] Allergy Severe DIFFICULTY Verified 12/07/23 16:29 BREATHING, swelling of face and throat divalproex sodium Allergy Mild SEIZURES Verified 12/07/23 16:29 [From Depakote] olanzapine [From Zyprexa] Allergy Mild NIPPLES Verified 12/07/23 16:29 LEAK risperidone [From Risperdal] Allergy Mild UNKNOWN Verified 12/07/23 16:29 quetiapine [From SEROQUEL] Allergy Unknown HEART Verified 12/07/23 16:29 PALPITATIONS lithium [[place]] AdvReac Mild STOMACH Verified 12/07/23 16:29 PAIN aripiprazole [From ABILIFY] AdvReac Unknown DYSTONIA Verified 12/07/23 16:29 Assessment & Plan Assessment & Plan (1) Opioid use disorder, severe, dependence: Status: Acute Code(s): F11.20 - Opioid dependence, uncomplicated (2) Alcohol use disorder, severe, dependence: Status: Acute Code(s): F10.20 - Alcohol dependence, uncomplicated (3) Substance abuse: Status: Acute Code(s): F19.10 - Other psychoactive substance abuse, uncomplicated (4) Schizoaffective disorder, depressive type: Status: Acute Code(s): F25.1 - Schizoaffective disorder, depressive type Plan Schizoaffective Disorder, Depressed. Polysubstance use disorder. PTSD Plan: Admit, CV, 15 minute checks Re-establish med regime Diagnostics Collateral contact Detox Full milieu encouraged Hospital course: 12/10- Continue tx. 12/11 Patient reports often on sober for over year, being sober for 3 months and then relapsing for week; said combination of concern for cancer diagnosis and girlfriend's miscarriage overwhelmed him and he relapsed with cocaine/alcohol. He says methadone has been helping him otherwise. Patient wants help with aftercare so he can stay sober. Feels that medications overall work and help his mood; however he complains of ongoing anxiety and sometimes near panic attack making a hard to drive. Does not want Zoloft increased since it can cause low libido; understands that a 50 mg off not doing much and agrees to switch to Lexapro Reviewed CT chest and discussed results with patient; he remains very anxious that he has cancer. Put in pulmonary consult for recommendations regarding further workup Long history of smoking; reports multiple family members cancer; weight loss of about 60 lb over the past year and a half PLAN: CV Q 15 minute checks Discontinue Zoloft 50 mg; to low overdose to make much difference and patient does not tolerate higher dose, lowered libido Start Lexapro 10 mg daily, to replace Zoloft Ativan 1 mg q.i.d.; will continue to taper and get back to home dose of Ativan 1 mg b.i.d. Pulmonary consult for recommendations regarding further workup Patient educated on: diagnosis, medication risk/benefits, substance abuse, therapeutic strategies and medical condition Informed Consent: understands Reason for continued inpatient stay Substantial Risk for: stable for discharge Time Spent With Patient Time: Total time managing care of this patient today ____ minutes.
[2023-12-12] MEDS: Escitalopram Oxalate 5 MG TABLET PO (15:33)
[2023-12-12] MEDS: LORazepam 1 MG TABLET PO ×2 (16:00→21:16)
[2023-12-12 20:00] VITALS: BP 122/78; PULSE 16; RESP 16; TEMP 36.4; O2SAT 100
[2023-12-12 21:16] VITALS: BP 113/60
[2023-12-12] MEDS: traZODone HCL 50 MG TABLET PO (21:16)
[2023-12-12] MEDS: Prazosin HCL 1 MG CAPSULE 2 MG PO (21:16)
--- NOTE | 2023-12-13 05:12 | PC.NURSE ---
Patient would like Ensure added to his meal trays x 3, plus HS.
[2023-12-13] MEDS: methADONE HCl 20 MG/2 ML ORAL.CONC 95 MG PO (08:06)
[2023-12-13 08:47] VITALS: BP 112/69; PULSE 108; RESP 16; TEMP 36.4; O2SAT 98
[2023-12-13] MEDS: Amphetamine Mixed Salts 20 MG TABLET PO ×2 (08:59→12:12)
[2023-12-13] MEDS: LORazepam 1 MG TABLET PO ×4 (08:59→20:18)
[2023-12-13] MEDS: Escitalopram Oxalate 10 MG TABLET PO (08:59)
[2023-12-13] MEDS: Paliperidone ER 9 MG TAB.ER.24 PO (08:59)
[2023-12-13] MEDS: Nicotine 14 MG PATCH.TD24 TRANSDERMA (09:00)
[2023-12-13] MEDS: Nicotine Polacrilex Lozenge 4 MG LOZENGE BUCCAL ×4 (09:58→20:18)
--- NOTE | 2023-12-13 12:56 | P.CONPL_ITS ---
History of Present Illness History of Present Illness Consult date: 12/13/23 Chief complaint: Abnormal CT chest Narrative: 43-year-old gentleman, recent approximately 30 pack-year smoker, with no prior personal history of lung disease, family history of mesothelioma in his aunt admitted to psychiatric diagnosis who had CT chest that demonstrated right medial pleural based nodularity, 4 mm and under pulmonary nodules and significant emphysema. Patient also complain cough productive of brownish sputum treated with several courses of antibiotics with moderate improvement. He also does complain of intermittent dyspnea on exertion. Patient is currently on no bronchodilator therapy. Review of Systems 2 Constitutional: Constitutional: Denies daytime sleepiness, Denies excessive sweating, Denies fatigue, Denies fever(s), Denies lethargy, Denies malaise, Denies night sweats, Denies snoring and Denies weight loss Eyes: Eyes: Denies blurry vision and Denies itchy eyes ENT: Denies nasal congestion, Denies post nasal drip, Denies sinus pain, Denies sinus pressure and Denies other ( Thrush) Cardiovascular: Cardiovascular: Denies chest pain, Denies pedal edema, Denies dyspnea, Denies orthopnea and Denies paroxysmal nocturnal dyspnea Respiratory: Respiratory: Denies cough, Denies hemoptysis, Denies excessive phlegm production, Denies dyspnea, Denies snoring and Denies wheezing Gastrointestinal: Gastrointestinal: Denies abdominal pain and Denies heartburn Musculoskeletal: Musculoskeletal: Denies myalgias, Denies arthralgias and Denies joint swelling Integumentary/Breasts: Skin/Breast: Denies rash Neurologic: Denies memory loss and Denies seizure-like activity Psychiatric: Psychiatric: Denies abnormal sleep pattern, Denies anxiety and Denies memory loss Endocrine: Endocrine: Denies excessive sweating, Denies fatigue and Denies heat intolerance Hematologic/Lymphatic: Hematologic/Lymphatic: Denies easy bruising Allergic/Immunologic: Allergic/Immunologic: Denies itchy eyes, Denies seasonal rhinorrhea and Denies wheezing PMFSH Past Medical History Medical History (Updated 12/13/23 @ 12:59 by Farhat Medley MD) Hepatitis C Cocaine use disorder Schizoaffective disorder, depressive type Opioid use disorder, severe, dependence Cocaine use disorder Panic anxiety syndrome OCD (obsessive compulsive disorder) Post traumatic stress disorder (PTSD) HTN (hypertension) Surgical History Surgical History No pertinent past surgical history Social History Social History Household Members: None Household Members Other:: lives alone Housing: Unknown / Unable to assess Do you presently have visiting nurse or other home services: No Unable to assess alcohol history related to: Refusing to respond Alcohol intake: never Comment: M3 Patient Tobacco Use Status: Current everyday Tobacco user Tobacco use type: Cigarette Cigarette Packs Per Day: 1 Cigarettes Per Day: 20.0 Years Smoked: 30 Smoked in Last 30 Days: Yes e-Cigarette/Vaping Use: Currently Using Frequency of e-Cigarette/Vaping Use: daily Patient Interested in Nicotine Replacement: Yes Patient Given Instructions on How to Stop Smoking: Yes Date Education Initiated: 12/08/23 Second Hand Smoke Exposure: Yes Use of substances other than those prescribed or required for medical reasons: Refusing to respond Substance Use Type: Crack/Cocaine and Marijuana Substance Use Frequency: Daily Last Used Substance: Days (ago) Last Used Substance Other:: 2 days ago Currently Displaying Signs/Symptoms of Drug Intoxication Withdrawal: No Any prior treatment program specific to substance use: Yes Have you been hit, kicked, punched, or otherwise hurt by someone within the past year? If so, by whom?: No Do you feel safe in your current relationship?: No Current Relationship Is there a partner from a previous relationship who is making you feel unsafe now?: No Are you made to feel afraid or neglected: No Spiritual Healthcare Practices: unknown Protestant Healthcare Practices: unknown Cultural Healthcare Practices: unknown Advance Directives: No Advance Directives Information Provided: No Do you have thoughts of harming others: None Do you have a plan to hurt others: No Plan service: No Sexual orientation: Straight/Heterosexual Meds Allergies Allergy/AdvReac Type Severity Reaction Status Date / Time tomato [Tomato] Allergy Severe DIFFICULTY Verified 12/07/23 16:29 BREATHING, swelling of face and throat divalproex sodium Allergy Mild SEIZURES Verified 12/07/23 16:29 [From Depakote] olanzapine [From Zyprexa] Allergy Mild NIPPLES Verified 12/07/23 16:29 LEAK risperidone [From Risperdal] Allergy Mild UNKNOWN Verified 12/07/23 16:29 quetiapine [From SEROQUEL] Allergy Unknown HEART Verified 12/07/23 16:29 PALPITATIONS lithium [[place]] AdvReac Mild STOMACH Verified 12/07/23 16:29 PAIN aripiprazole [From ABILIFY] AdvReac Unknown DYSTONIA Verified 12/07/23 16:29 Active Medications: Current Medications Acetaminophen (Acetaminophen 325 Mg Tablet) 650 mg PO Q6H PRN PRN Reason: Headache/Pain Mild Scale (1-3) Last Admin: 12/09/23 12:05 Dose: 650 mg Al Hydroxide/Mg Hydroxide (Magnesium Hydrox/Alum Hydrox 30 Ml Oral.Susp) 30 ml PO Q6H PRN PRN Reason: Heartburn/Nausea Amphetamine/Dextroamphetamine (Amphetamine Mixed Salts 20 Mg Tablet) 20 mg PO BID@0900,1300 [facility] Last Admin: 12/13/23 12:12 Dose: 20 mg Escitalopram Oxalate (Escitalopram Oxalate 10 Mg Tablet) 10 mg PO DAILY [facility] Last Admin: 12/13/23 08:59 Dose: 10 mg Hydroxyzine HCl (Hydroxyzine Hcl 25 Mg Tablet) 25 mg PO Q6H PRN PRN Reason: Anxiety Last Admin: 12/10/23 11:18 Dose: 25 mg Lorazepam (Lorazepam 1 Mg Tablet) 1 mg PO QID [facility] Last Admin: 12/13/23 12:12 Dose: 1 mg Magnesium Hydroxide (Milk Of Magnesia 30 Ml Oral.Susp) 30 ml PO DAILY PRN PRN Reason: Constipation Methadone HCl (Methadone Hcl 20 Mg/2 Ml Oral.Conc) 95 mg PO DAILY [facility] Last Admin: 12/13/23 08:06 Dose: 95 mg Nicotine (Nicotine 14 Mg Patch.Td24) 14 mg TRANSDERMA DAILY PRN PRN Reason: smoking cessation Last Admin: 12/13/23 09:00 Dose: 14 mg Nicotine Polacrilex (Nicotine Polacrilex Lozenge 4 Mg Lozenge) 4 mg BUCCAL Q2H PRN PRN Reason: Nicotine Cravings Last Admin: 12/13/23 12:12 Dose: 4 mg Paliperidone (Paliperidone Er 9 Mg Tab.Er.24) 9 mg PO DAILY [facility] Last Admin: 12/13/23 08:59 Dose: 9 mg Prazosin HCl (Prazosin Hcl 1 Mg Capsule) 2 mg PO BEDTIME [facility]; Protocol Last Admin: 12/12/23 21:16 Dose: 2 mg Trazodone HCl (Trazodone Hcl 50 Mg Tablet) 50 mg PO BEDTIME MRX1 PRN PRN Reason: Insomnia Last Admin: 12/12/23 21:16 Dose: 50 mg Home Medications ?Medication ?Instructions ?Recorded ?Confirmed ?Last Taken ?Type prazosin 1 mg capsule 2 mg PO BEDTIME 10/14/22 12/07/23 12/02/23 History dextroamphetamine-amphetamine 20 20 mg PO BID 02/07/23 12/07/23 12/02/23 History mg tablet (Adderall) lorazepam 1 mg tablet 1 mg PO BID PRN Agitation 02/07/23 12/07/23 12/02/23 History paliperidone 9 mg tablet,extended 9 mg PO DAILY 12/07/23 12/07/23 11/26/23 History release 24 hr sertraline 50 mg tablet 50 mg PO QAM 12/07/23 12/07/23 12/02/23 History methadone 95 mg PO DAILY 12/08/23 12/08/23 12/07/23 09:35 History methadone 10 mg/mL oral 95 mg PO DAILY 12/08/23 12/08/23 12/07/23 09:36 History concentrate (Methadone Intensol) Physical Exam 2 Vital Signs: Vital Signs: Last Vital Signs Temp 97.5 F 12/13/23 08:47 Pulse 108 H 12/13/23 08:47 Resp 16 12/13/23 08:47 BP 112/69 12/13/23 08:47 Pulse Ox 98 12/13/23 08:47 O2 Del Method Room Air 12/13/23 08:47 BMI result Body Mass Index 19.3 Const: General: no acute distress and alert Nutritional Appearance: not obese Orientation/consciousness: Other orientation findings ( oriented) HEENT: Head: Yes atraumatic Eyes: General: appearance normal, both eyes and all related structures S clerae: sclerae normal EOM: EOMs intact bilaterally Neck: Neck: Yes supple Lymphatic: no lymphadenopathy noted Resp: Effort & Inspection: normal respiratory effort and no use of accessory muscles Auscultation: clear to auscultation bilaterally Cardio: Rate: regular rate Rhythm: regular rhythm Heart sounds: no gallops, no murmurs and no rubs Skin: General skin exam: other ( warm) Extrem: General: No clubbing, No cyanosis and No edema Results Laboratory Findings 12/07/23 17:50 12/07/23 17:50 Abnormal lab findings: Abnormal Labs 12/07/23 12/07/23 16:37 17:50 Carbon Dioxide 21 L AST 77 H ALT 46 H Total Protein 8.2 H Urine Protein 30 (1+) H Urine Opiates Screen POSITIVE H Ur Buprenorphine Scrn Positive H Urine Methadone Screen Positive H Urine Fentanyl Screen POSITIVE H Urine Cocaine Screen POSITIVE H U Marijuana (THC) Screen POSITIVE H Assessment and Plan (1) Abnormal CT scan, chest: Status: Acute (2) Pulmonary emphysema: Status: Acute Plan Impression: 43-year-old gentleman who incidentally noted to have abnormal CT chest with pleural based on tolerated and family history of with sleep, also with pulmonary emphysema and mild dyspnea on exertion. Recommendations: Start Anoro 1 puff inhaled daily. Will schedule for outpatient follow-up after repeat CT chest in 3 months. Procedures Date of Service Date of Service: 12/13/23
--- NOTE | 2023-12-13 13:32 | P.PNPSI_ITS ---
Subjective Subjective Date of Service: 12/13/23 Reason For Visit: Abnormal CT chest Interim History: met with patient; discussed with team; reviewed Dr. Medley's note pt reports feeling in better mood; tolerating lexapro and agrees to increase further. Trouble sleeping and asks for trazodone to be increased to 100mg. 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 All feel good about plan. reviewed Dr. Medley's note with patient who feels good about follow up Mental Status Exam Mental Status Exam Narrative: Pt is alert and oriented; behavior is cooperative, friendly and calm; patient is not in distress; dressed in casual attire and adequately groomed with good hygiene; tattooed legs arms; shaved head; cachectic; ; mood is described as betters and affect congruent; eye contact appropriate; Speech is normal rate, volume and prosody and not pressured; no psychomotor agitation/retardation present; thought process is organized and goal directed; Thought content is on tx, worried about cancer; otherwise pertinent to relevant topics and without any delusional content, paranoid ideations or grandiosity; denies any SI/HI. Intermittent AH but minimal Patients insight and judgment fair. Diagnostics Vital Signs (24Hr): Vital Signs - 24 hr 12/12/23 20:00 12/12/23 21:16 12/13/23 08:47 Temperature 97.5 F 97.5 F Pulse Rate 16 L 108 H Respiratory Rate 16 16 Blood Pressure 122/78 113/60 112/69 Pulse Oximetry 100 98 Oxygen Delivery Method Room Air Room Air BMI result Body Mass Index 19.3 Labs 12/07/23 17:50 12/07/23 17:50 Imaging Radiology Impressions: ITS Impressions Cervical Spine CT 12/07/23 17:51 IMPRESSION: Unremarkable examination. Fleischner guidelines were followed. Electronically signed by: aMteo Ha MD 12/07/2023 09:27 PM EDT RP Chest X-Ray 12/07/23 17:51 IMPRESSION: Hyperinflation. No acute cardiopulmonary disease. Electronically signed by: Charly Lambert MD 12/07/2023 08:51 PM EDT RP Chest CT 12/10/23 09:56 IMPRESSION: 1. 3.5 cm region of consolidation/groundglass attenuation in the subpleural region of the lateral right upper lobe. This may be infectious/inflammatory in etiology. Recommend short interval follow-up in 3-6 months. 2. Additional bilateral pulmonary nodules measuring up to 4 mm. Fleischner guidelines were followed. Electronically signed by: Sarahi Jiménez MD 12/11/2023 07:33 AM EDT RP Medications Medications Current Medications Acetaminophen (Acetaminophen 325 Mg Tablet) 650 mg PO Q6H PRN PRN Reason: Headache/Pain Mild Scale (1-3) Last Admin: 12/09/23 12:05 Dose: 650 mg Al Hydroxide/Mg Hydroxide (Magnesium Hydrox/Alum Hydrox 30 Ml Oral.Susp) 30 ml PO Q6H PRN PRN Reason: Heartburn/Nausea Amphetamine/Dextroamphetamine (Amphetamine Mixed Salts 20 Mg Tablet) 20 mg PO BID@0900,1300 [facility] Last Admin: 12/13/23 12:12 Dose: 20 mg Escitalopram Oxalate (Escitalopram Oxalate 10 Mg Tablet) 10 mg PO DAILY [facility] Last Admin: 12/13/23 08:59 Dose: 10 mg Hydroxyzine HCl (Hydroxyzine Hcl 25 Mg Tablet) 25 mg PO Q6H PRN PRN Reason: Anxiety Last Admin: 12/10/23 11:18 Dose: 25 mg Lorazepam (Lorazepam 1 Mg Tablet) 1 mg PO QID [facility] Last Admin: 12/13/23 12:12 Dose: 1 mg Magnesium Hydroxide (Milk Of Magnesia 30 Ml Oral.Susp) 30 ml PO DAILY PRN PRN Reason: Constipation Methadone HCl (Methadone Hcl 20 Mg/2 Ml Oral.Conc) 95 mg PO DAILY [facility] Last Admin: 12/13/23 08:06 Dose: 95 mg Nicotine (Nicotine 14 Mg Patch.Td24) 14 mg TRANSDERMA DAILY PRN PRN Reason: smoking cessation Last Admin: 12/13/23 09:00 Dose: 14 mg Nicotine Polacrilex (Nicotine Polacrilex Lozenge 4 Mg Lozenge) 4 mg BUCCAL Q2H PRN PRN Reason: Nicotine Cravings Last Admin: 12/13/23 12:12 Dose: 4 mg Paliperidone (Paliperidone Er 9 Mg Tab.Er.24) 9 mg PO DAILY [facility] Last Admin: 09/04/24 08:59 Dose: 9 mg Prazosin HCl (Prazosin Hcl 1 Mg Capsule) 2 mg PO BEDTIME RISSA; Protocol Last Admin: 12/12/23 21:16 Dose: 2 mg Trazodone HCl (Trazodone Hcl 50 Mg Tablet) 50 mg PO BEDTIME MRX1 PRN PRN Reason: Insomnia Last Admin: 12/12/23 21:16 Dose: 50 mg Allergies Allergies Allergy/AdvReac Type Severity Reaction Status Date / Time tomato [Tomato] Allergy Severe DIFFICULTY Verified 12/07/23 16:29 BREATHING, swelling of face and throat divalproex sodium Allergy Mild SEIZURES Verified 12/07/23 16:29 [From Depakote] olanzapine [From Zyprexa] Allergy Mild NIPPLES Verified 12/07/23 16:29 LEAK risperidone [From Risperdal] Allergy Mild UNKNOWN Verified 12/07/23 16:29 quetiapine [From SEROQUEL] Allergy Unknown HEART Verified 12/07/23 16:29 PALPITATIONS lithium [[place]] AdvReac Mild STOMACH Verified 12/07/23 16:29 PAIN aripiprazole [From ABILIFY] AdvReac Unknown DYSTONIA Verified 12/07/23 16:29 Assessment & Plan Assessment & Plan (1) Schizoaffective disorder, depressive type: Status: Acute Code(s): F25.1 - Schizoaffective disorder, depressive type (2) Post traumatic stress disorder (PTSD): Status: Acute Code(s): F43.10 - Post-traumatic stress disorder, unspecified (3) ADHD: Status: Acute Code(s): F90.9 - Attention-deficit hyperactivity disorder, unspecified type (4) Alcohol use disorder, severe, dependence: Status: Acute Code(s): F10.20 - Alcohol dependence, uncomplicated (5) Opioid use disorder, severe, dependence: Status: Acute Code(s): F11.20 - Opioid dependence, uncomplicated (6) Abnormal CT scan, chest: Status: Acute Code(s): R93.89 - Abnormal findings on diagnostic imaging of other specified body structures (7) Pulmonary emphysema: Status: Acute Code(s): J43.9 - Emphysema, unspecified Plan Schizoaffective Disorder, Depressed. Polysubstance use disorder. PTSD Plan: Admit, CV, 15 minute checks Re-establish med regime Diagnostics Collateral contact Detox Full milieu encouraged Hospital course: 12/10- Continue tx. 12/11 Patient reports often on sober for over year, being sober for 3 months and then relapsing for week; said combination of concern for cancer diagnosis and girlfriend's miscarriage overwhelmed him and he relapsed with cocaine/alcohol. He says methadone has been helping him otherwise. Patient wants help with aftercare so he can stay sober. Feels that medications overall work and help his mood; however he complains of ongoing anxiety and sometimes near panic attack making a hard to drive. Does not want Zoloft increased since it can cause low libido; understands that a 50 mg off not doing much and agrees to switch to Lexapro Reviewed CT chest and discussed results with patient; he remains very anxious that he has cancer. Put in pulmonary consult for recommendations regarding further workup Long history of smoking; reports multiple family members cancer; weight loss of about 60 lb over the past year and a half 12/12 pt reports feeling in better mood; tolerating lexapro and agrees to increase further. Trouble sleeping and asks for trazodone to be increased to 100mg. 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 All feel good about plan. -reviewed Dr. Medley's note with patient who feels good about follow up PLAN: CV Q 15 minute checks Discontinue Zoloft 50 mg; to low overdose to make much difference and patient does not tolerate higher dose, lowered libido Increase to Lexapro 20 mg daily, to replace Zoloft Increasing Trazodone 100mg for continued insomnia taper to Ativan 1 mg tid; will continue to taper and get back to home dose of Ativan 1 mg b.i.d. Pulmonary Recommendations: Start Anoro 1 puff inhaled daily. Will schedule for outpatient follow-up after repeat CT chest in 3 months. Patient educated on: diagnosis, medication risk/benefits, substance abuse, therapeutic strategies and medical condition Informed Consent: understands Reason for continued inpatient stay Substantial Risk for: rapid decompensation and med/psych decompensation Time Spent With Patient Time: Total time managing care of this patient today ____ minutes.
--- NOTE | 2023-12-13 17:16 | MHC.RECOVSUP ---
? Reason for consult Recovery Support o Current location: [facility] o Identified substance use concern: Heroin - Support ? Intervention: o Community resources provided o Harm reduction discussion ? Plan: o Patient to follow up with [facility] after discharge ? Additional information: Met with patient and we talked about Recovery, And Harm reduction. We also talked about different pathways to recovery and the resources. 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 A referral was submitted.
[2023-12-13 20:07] VITALS: BP 126/70; PULSE 108; RESP 16; TEMP 36.3; O2SAT 97
[2023-12-13] MEDS: traZODone HCL 100 MG TABLET PO (20:18)
[2023-12-13] MEDS: Prazosin HCL 1 MG CAPSULE 2 MG PO (20:18)
[2023-12-14 07:00] VITALS: BMI 21.7
[2023-12-14] MEDS: methADONE HCl 20 MG/2 ML ORAL.CONC 95 MG PO (07:45)
[2023-12-14 08:25] VITALS: BP 101/65; PULSE 109; RESP 16; TEMP 36.3; O2SAT 98
[2023-12-14] MEDS: LORazepam 1 MG TABLET PO ×3 (08:36→20:02)
[2023-12-14] MEDS: Amphetamine Mixed Salts 20 MG TABLET PO ×2 (08:36→12:18)
[2023-12-14] MEDS: Escitalopram Oxalate 20 MG TABLET PO (08:36)
[2023-12-14] MEDS: Paliperidone ER 9 MG TAB.ER.24 PO (08:36)
[2023-12-14] MEDS: Nicotine 14 MG PATCH.TD24 TRANSDERMA (09:10)
[2023-12-14] MEDS: Nicotine Polacrilex Lozenge 4 MG LOZENGE BUCCAL ×2 (09:11→12:18)
--- NOTE | 2023-12-14 10:04 | P.PNPSI_ITS ---
Subjective Subjective Date of Service: 12/14/23 Reason For Visit: Abnormal CT chest Interim History: met with patient; discussed with team pt in better mood overall; engaged in dispo planning. Today however pt caught vaping cannabis; he said he smuggled it in on admission, though it occurred after visit w/ girlfriend. Visits now supervised visits and only in kitchen discussed case with Dr. Medley who will order inhaler Mental Status Exam Mental Status Exam Narrative: Pt is alert and oriented; behavior is cooperative, friendly and calm; patient is not in distress; dressed in casual attire and adequately groomed with good hygiene; tattooed legs arms; shaved head; cachectic; ; mood is described as ok and affect congruent; eye contact appropriate; Speech is normal rate, volume and prosody and not pressured; no psychomotor agitation/retardation present; thought process is organized and goal directed; Thought content is on tx, worried about cancer; otherwise pertinent to relevant topics and without any delusional content, paranoid ideations or grandiosity; denies any SI/HI. Intermittent AH but minimal Patients insight and judgment fair. Diagnostics Vital Signs (24Hr): Vital Signs - 24 hr 12/13/23 20:07 12/14/23 08:25 Temperature 97.4 F 97.4 F Pulse Rate 108 H 109 H Respiratory Rate 16 16 Blood Pressure 126/70 101/65 Pulse Oximetry 97 98 Oxygen Delivery Method Room Air Room Air BMI result Body Mass Index 21.7 Labs 12/07/23 17:50 12/07/23 17:50 Imaging Radiology Impressions: ITS Impressions Cervical Spine CT 12/07/23 17:51 IMPRESSION: Unremarkable examination. Fleischner guidelines were followed. Electronically signed by: Mateo Ha MD 12/07/2023 09:27 PM EDT RP Chest X-Ray 12/07/23 17:51 IMPRESSION: Hyperinflation. No acute cardiopulmonary disease. Electronically signed by: Charly Lambert MD 12/07/2023 08:51 PM EDT RP Chest CT 12/10/23 09:56 IMPRESSION: 1. 3.5 cm region of consolidation/groundglass attenuation in the subpleural region of the lateral right upper lobe. This may be infectious/inflammatory in etiology. Recommend short interval follow-up in 3-6 months. 2. Additional bilateral pulmonary nodules measuring up to 4 mm. Fleischner guidelines were followed. Electronically signed by: Sarahi Jiménez MD 12/11/2023 07:33 AM EDT RP Medications Medications Current Medications Acetaminophen (Acetaminophen 325 Mg Tablet) 650 mg PO Q6H PRN PRN Reason: Headache/Pain Mild Scale (1-3) Last Admin: 12/09/23 12:05 Dose: 650 mg Al Hydroxide/Mg Hydroxide (Magnesium Hydrox/Alum Hydrox 30 Ml Oral.Susp) 30 ml PO Q6H PRN PRN Reason: Heartburn/Nausea Amphetamine/Dextroamphetamine (Amphetamine Mixed Salts 20 Mg Tablet) 20 mg PO BID@0900,1300 COUNTS INCLUDE 234 BEDS AT [facility] Last Admin: 12/14/23 08:36 Dose: 20 mg Escitalopram Oxalate (Escitalopram Oxalate 20 Mg Tablet) 20 mg PO DAILY COUNTS INCLUDE 234 BEDS AT THE [facility] Last Admin: 12/14/23 08:36 Dose: 20 mg Hydroxyzine HCl (Hydroxyzine Hcl 25 Mg Tablet) 25 mg PO Q6H PRN PRN Reason: Anxiety Last Admin: 12/10/23 11:18 Dose: 25 mg Lorazepam (Lorazepam 1 Mg Tablet) 1 mg PO TID COUNTS INCLUDE 234 BEDS AT [facility] Last Admin: 12/14/23 08:36 Dose: 1 mg Magnesium Hydroxide (Milk Of Magnesia 30 Ml Oral.Susp) 30 ml PO DAILY PRN PRN Reason: Constipation Methadone HCl (Methadone Hcl 20 Mg/2 Ml Oral.Conc) 95 mg PO DAILY COUNTS INCLUDE 234 BEDS AT [facility] Last Admin: 12/14/23 07:45 Dose: 95 mg Nicotine (Nicotine 14 Mg Patch.Td24) 14 mg TRANSDERMA DAILY PRN PRN Reason: smoking cessation Last Admin: 12/14/23 09:10 Dose: 14 mg Nicotine Polacrilex (Nicotine Polacrilex Lozenge 4 Mg Lozenge) 4 mg BUCCAL Q2H PRN PRN Reason: Nicotine Cravings Last Admin: 12/14/23 09:11 Dose: 4 mg Paliperidone (Paliperidone Er 9 Mg Tab.Er.24) 9 mg PO DAILY [facility]S [facility]CLUDE 234 BEDS AT [facility] Last Admin: 12/14/23 08:36 Dose: 9 mg Prazosin HCl (Prazosin Hcl 1 Mg Capsule) 2 mg PO BEDTIME COUNTS INCLUDE 234 BEDS AT THE [facility]; Protocol Last Admin: 12/13/23 20:18 Dose: 2 mg Trazodone HCl (Trazodone Hcl 50 Mg Tablet) 50 mg PO BEDTIME MRX1 PRN PRN Reason: Insomnia Last Admin: 12/12/23 21:16 Dose: 50 mg Trazodone HCl (Trazodone Hcl 100 Mg Tablet) 100 mg PO BEDTIME RISSA Last Admin: 12/13/23 20:18 Dose: 100 mg Allergies Allergies Allergy/AdvReac Type Severity Reaction Status Date / Time tomato [Tomato] Allergy Severe DIFFICULTY Verified 12/07/23 16:29 BREATHING, swelling of face and throat divalproex sodium Allergy Mild SEIZURES Verified 12/07/23 16:29 [From Depakote] olanzapine [From Zyprexa] Allergy Mild NIPPLES Verified 12/07/23 16:29 LEAK risperidone [From Risperdal] Allergy Mild UNKNOWN Verified 12/07/23 16:29 quetiapine [From SEROQUEL] Allergy Unknown HEART Verified 12/07/23 16:29 PALPITATIONS lithium [[place]] AdvReac Mild STOMACH Verified 12/07/23 16:29 PAIN aripiprazole [From ABILIFY] AdvReac Unknown DYSTONIA Verified 12/07/23 16:29 Assessment & Plan Assessment & Plan (1) Schizoaffective disorder, depressive type: Status: Acute Code(s): F25.1 - Schizoaffective disorder, depressive type (2) Post traumatic stress disorder (PTSD): Status: Acute Code(s): F43.10 - Post-traumatic stress disorder, unspecified (3) ADHD: Status: Acute Code(s): F90.9 - Attention-deficit hyperactivity disorder, unspecified type (4) Alcohol use disorder, severe, dependence: Status: Acute Code(s): F10.20 - Alcohol dependence, uncomplicated (5) Opioid use disorder, severe, dependence: Status: Acute Code(s): F11.20 - Opioid dependence, uncomplicated (6) Abnormal CT scan, chest: Status: Acute Code(s): R93.89 - Abnormal findings on diagnostic imaging of other specified body structures (7) Pulmonary emphysema: Status: Acute Code(s): J43.9 - Emphysema, unspecified Plan Schizoaffective Disorder, Depressed. Polysubstance use disorder. PTSD Plan: Admit, CV, 15 minute checks Re-establish med regime Diagnostics Collateral contact Detox Full milieu encouraged Hospital course: 12/10- Continue tx. 12/11 Patient reports often on sober for over year, being sober for 3 months and then relapsing for week; said combination of concern for cancer diagnosis and girlfriend's miscarriage overwhelmed him and he relapsed with cocaine/alcohol. He says methadone has been helping him otherwise. Patient wants help with aftercare so he can stay sober. Feels that medications overall work and help his mood; however he complains of ongoing anxiety and sometimes near panic attack making a hard to drive. Does not want Zoloft increased since it can cause low libido; understands that a 50 mg off not doing much and agrees to switch to Lexapro Reviewed CT chest and discussed results with patient; he remains very anxious that he has cancer. Put in pulmonary consult for recommendations regarding further workup Long history of smoking; reports multiple family members cancer; weight loss of about 60 lb over the past year and a half 12/12 pt reports feeling in better mood; tolerating lexapro and agrees to increase further. Trouble sleeping and asks for trazodone to be increased to 100mg. 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 All feel good about plan. -reviewed Dr. Medley's note with patient who feels good about follow up 12/13 pt in better mood overall; engaged in dispo planning. Today however pt caught vaping cannabis; he said he smuggled it in on admission, though it occurred after visit w/ girlfriend. Visits now supervised visits and only in kitchen -discussed case with Dr. Medley who will order inhaler; says his office will make follow up appointment with patient -discussed case with outpt psychiatrist Dr. Cuevas who agrees with tx plan PLAN: CV Q 15 minute checks Discontinue Zoloft 50 mg; to low overdose to make much difference and patient does not tolerate higher dose, lowered libido Increased to Lexapro 20 mg daily, to replace Zoloft Increased Trazodone 100mg for continued insomnia taper to Ativan 1 mg bid, home dose Pulmonary Recommendations: Started Anoro [address] Ross office will schedule for outpatient follow-up and for repeat CT chest in 3 months. Patient educated on: diagnosis, substance abuse and medical condition Informed Consent: understands Reason for continued inpatient stay Substantial Risk for: stable for discharge Time Spent With Patient Time: Total time managing care of this patient today ____ minutes.
--- NOTE | 2023-12-14 11:54 | PC.NURSE ---
pt was found by nursing staff smoking a vape. Pt claims it was nicotine and brought in by his girlfriend during a visit. Provider and clinical coordinator notified via tiger text. Awaiting response and possible orders for supervised visits
--- NOTE | 2023-12-14 13:06 | PC.NURSE ---
the nurse that noticed Jaswinder vaping reports the pt never directly stated his girlfriend brought the vape in. It was miscommunication and an assumption as the pt just a visit before the vape was found. Pt reports the vape was smuggled in in my butt cheeks Provider EL notified.
[2023-12-14 19:58] VITALS: BP 127/79; PULSE 108; TEMP 36.6; O2SAT 97
[2023-12-14] MEDS: Prazosin HCL 1 MG CAPSULE 2 MG PO (20:01)
[2023-12-14] MEDS: traZODone HCL 100 MG TABLET PO (20:01)
[2023-12-15] MEDS: Nicotine Polacrilex Lozenge 4 MG LOZENGE BUCCAL (06:08)
[2023-12-15 08:00] VITALS: BP 106/65; PULSE 81; O2SAT 99
[2023-12-15] MEDS: methADONE HCl 20 MG/2 ML ORAL.CONC 95 MG PO (08:02)
[2023-12-15] MEDS: Amphetamine Mixed Salts 20 MG TABLET PO ×2 (08:32→12:16)
[2023-12-15] MEDS: LORazepam 1 MG TABLET PO ×3 (08:32→21:24)
[2023-12-15] MEDS: Paliperidone ER 9 MG TAB.ER.24 PO (08:32)
[2023-12-15] MEDS: Escitalopram Oxalate 20 MG TABLET PO (08:32)
[2023-12-15] MEDS: Fluticasone/Umeclidinium/Vilanterol 100/62.5/25 BLST.W.DEV 1 PUFF INHALE (08:33)
--- NOTE | 2023-12-15 09:46 | P.PNPSI_ITS ---
Subjective Subjective Date of Service: 12/15/23 Reason For Visit: Abnormal CT chest Interim History: met with pt; discussed with team pt reports mood is better and anxiety also improved. He reports feeling good about what was accomplished during this admission and he's proud that he did not place a 3 day. Denies any SI; optimistic about staying sober. Says he does not need refills accept for new meds started and adderall. Mental Status Exam Mental Status Exam Narrative: Pt is alert and oriented; behavior is cooperative, friendly and calm; patient is not in distress; dressed in casual attire and adequately groomed with good hygiene; tattooed legs arms; shaved head; cachectic; ; mood is described as good and affect congruent; eye contact appropriate; Speech is normal rate, volume and prosody and not pressured; no psychomotor agitation/retardation present; thought process is organized and goal directed; Thought content is on tx, worried about cancer; otherwise pertinent to relevant topics and without any delusional content, paranoid ideations or grandiosity; denies any SI/HI. Intermittent AH but minimal Patients insight and judgment fair. Diagnostics Vital Signs (24Hr): Vital Signs - 24 hr 12/14/23 19:58 Temperature 97.8 F Pulse Rate 108 H Blood Pressure 127/79 Pulse Oximetry 97 Oxygen Delivery Method Room Air BMI result Body Mass Index 21.7 Labs 12/07/23 17:50 12/07/23 17:50 Imaging Radiology Impressions: ITS Impressions Cervical Spine CT 12/07/23 17:51 IMPRESSION: Unremarkable examination. Fleischner guidelines were followed. Electronically signed by: Mateo Ha MD 12/07/2023 09:27 PM EDT RP Chest X-Ray 12/07/23 17:51 IMPRESSION: Hyperinflation. No acute cardiopulmonary disease. Electronically signed by: Charly Lambert MD 12/07/2023 08:51 PM EDT RP Chest CT 12/10/23 09:56 IMPRESSION: 1. 3.5 cm region of consolidation/groundglass attenuation in the subpleural region of the lateral right upper lobe. This may be infectious/inflammatory in etiology. Recommend short interval follow-up in 3-6 months. 2. Additional bilateral pulmonary nodules measuring up to 4 mm. Fleischner guidelines were followed. Electronically signed by: Sarahi Jiménez MD 12/11/2023 07:33 AM EDT RP Medications Medications Current Medications Acetaminophen (Acetaminophen 325 Mg Tablet) 650 mg PO Q6H PRN PRN Reason: Headache/Pain Mild Scale (1-3) Last Admin: 12/09/23 12:05 Dose: 650 mg Al Hydroxide/Mg Hydroxide (Magnesium Hydrox/Alum Hydrox 30 Ml Oral.Susp) 30 ml PO Q6H PRN PRN Reason: Heartburn/Nausea Amphetamine/Dextroamphetamine (Amphetamine Mixed Salts 20 Mg Tablet) 20 mg PO BID@0900,1300 [facility] Last Admin: 12/15/23 08:32 Dose: 20 mg Escitalopram Oxalate (Escitalopram Oxalate 20 Mg Tablet) 20 mg PO DAILY [facility] Last Admin: 12/15/23 08:32 Dose: 20 mg Fluticasone/Umeclidinium/Vilanterol (Fluticasone/Umeclidinium/Vilanterol 100/62.5/25 Blst.W.Dev) 1 puff INHALE RDAILY [facility] Last Admin: 12/15/23 08:33 Dose: 1 puff Hydroxyzine HCl (Hydroxyzine Hcl 25 Mg Tablet) 25 mg PO Q6H PRN PRN Reason: Anxiety Last Admin: 12/10/23 11:18 Dose: 25 mg Lorazepam (Lorazepam 1 Mg Tablet) 1 mg PO TID [facility] Last Admin: 12/15/23 08:32 Dose: 1 mg Magnesium Hydroxide (Milk Of Magnesia 30 Ml Oral.Susp) 30 ml PO DAILY PRN PRN Reason: Constipation Methadone HCl (Methadone Hcl 20 Mg/2 Ml Oral.Conc) 95 mg PO DAILY [facility] Last Admin: 12/15/23 08:02 Dose: 95 mg Nicotine (Nicotine 14 Mg Patch.Td24) 14 mg TRANSDERMA DAILY PRN PRN Reason: smoking cessation Last Admin: 12/14/23 09:10 Dose: 14 mg Nicotine Polacrilex (Nicotine Polacrilex Lozenge 4 Mg Lozenge) 4 mg BUCCAL Q2H PRN PRN Reason: Nicotine Cravings Last Admin: 12/15/23 06:08 Dose: 4 mg Paliperidone (Paliperidone Er 9 Mg Tab.Er.24) 9 mg PO DAILY [facility] Last Admin: 12/15/23 08:32 Dose: 9 mg Prazosin HCl (Prazosin Hcl 1 Mg Capsule) 2 mg PO BEDTIME RISSA; Protocol Last Admin: 12/14/23 20:01 Dose: 2 mg Trazodone HCl (Trazodone Hcl 50 Mg Tablet) 50 mg PO BEDTIME MRX1 PRN PRN Reason: Insomnia Last Admin: 12/12/23 21:16 Dose: 50 mg Trazodone HCl (Trazodone Hcl 100 Mg Tablet) 100 mg PO BEDTIME RISSA Last Admin: 12/14/23 20:01 Dose: 100 mg Allergies Allergies Allergy/AdvReac Type Severity Reaction Status Date / Time tomato [Tomato] Allergy Severe DIFFICULTY Verified 12/07/23 16:29 BREATHING, swelling of face and throat divalproex sodium Allergy Mild SEIZURES Verified 12/07/23 16:29 [From Depakote] olanzapine [From Zyprexa] Allergy Mild NIPPLES Verified 12/07/23 16:29 LEAK risperidone [From Risperdal] Allergy Mild UNKNOWN Verified 12/07/23 16:29 quetiapine [From SEROQUEL] Allergy Unknown HEART Verified 12/07/23 16:29 PALPITATIONS lithium [[place]] AdvReac Mild STOMACH Verified 12/07/23 16:29 PAIN aripiprazole [From ABILIFY] AdvReac Unknown DYSTONIA Verified 12/07/23 16:29 Assessment & Plan Assessment & Plan (1) Schizoaffective disorder, depressive type: Status: Acute Code(s): F25.1 - Schizoaffective disorder, depressive type (2) Post traumatic stress disorder (PTSD): Status: Acute Code(s): F43.10 - Post-traumatic stress disorder, unspecified (3) ADHD: Status: Acute Code(s): F90.9 - Attention-deficit hyperactivity disorder, unspecified type (4) Alcohol use disorder, severe, dependence: Status: Acute Code(s): F10.20 - Alcohol dependence, uncomplicated (5) Opioid use disorder, severe, dependence: Status: Acute Code(s): F11.20 - Opioid dependence, uncomplicated (6) Abnormal CT scan, chest: Status: Acute Code(s): R93.89 - Abnormal findings on diagnostic imaging of other specified body structures (7) Pulmonary emphysema: Status: Acute Code(s): J43.9 - Emphysema, unspecified Plan Schizoaffective Disorder, Depressed. Polysubstance use disorder. PTSD Plan: Admit, CV, 15 minute checks Re-establish med regime Diagnostics Collateral contact Detox Full milieu encouraged Hospital course: 12/10- Continue tx. 12/11 Patient reports often on sober for over year, being sober for 3 months and then relapsing for week; said combination of concern for cancer diagnosis and girlfriend's miscarriage overwhelmed him and he relapsed with cocaine/alcohol. He says methadone has been helping him otherwise. Patient wants help with aftercare so he can stay sober. Feels that medications overall work and help his mood; however he complains of ongoing anxiety and sometimes near panic attack making a hard to drive. Does not want Zoloft increased since it can cause low libido; understands that a 50 mg off not doing much and agrees to switch to Lexapro Reviewed CT chest and discussed results with patient; he remains very anxious that he has cancer. Put in pulmonary consult for recommendations regarding further workup Long history of smoking; reports multiple family members cancer; weight loss of about 60 lb over the past year and a half 12/12 pt reports feeling in better mood; tolerating lexapro and agrees to increase further. Trouble sleeping and asks for trazodone to be increased to 100mg. 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 All feel good about plan. -reviewed Dr. Medley's note with patient who feels good about follow up 12/13 pt in better mood overall; engaged in dispo planning. Today however pt caught vaping cannabis; he said he smuggled it in on admission, though it occurred after visit w/ girlfriend. Visits now supervised visits and only in kitchen -discussed case with Dr. Medley who will order inhaler; says his office will make follow up appointment with patient -discussed case with outpt psychiatrist Dr. Cuevas who agrees with tx plan 12/14 doing well, good mood, anxiety down, optimistic about sobriety. requests discharge. Pt is not in imminent risk for harm to self or others. request for discharge honored. PLAN: CV Q 15 minute checks Discontinue Zoloft 50 mg; to low overdose to make much difference and patient does not tolerate higher dose, lowered libido Increased to Lexapro 20 mg daily, to replace Zoloft Increased Trazodone 100mg for continued insomnia taper to Ativan 1 mg bid, home dose Pulmonary Recommendations: Started Anoro [address] Ross office will schedule for outpatient follow-up and for repeat CT chest in 3 months. Patient educated on: diagnosis, medication risk/benefits, substance abuse and medical condition Informed Consent: understands Reason for continued inpatient stay Substantial Risk for: stable for discharge Time Spent With Patient Time: Total time managing care of this patient today ____ minutes.
[2023-12-15] MEDS: Nicotine 14 MG PATCH.TD24 TRANSDERMA (11:15)
[2023-12-15 20:00] VITALS: BP 118/64; PULSE 79; TEMP 36.5; O2SAT 99
[2023-12-15] MEDS: Prazosin HCL 1 MG CAPSULE 2 MG PO (21:24)
[2023-12-15] MEDS: traZODone HCL 100 MG TABLET PO (21:24)
--- NOTE | 2023-12-15 23:01 | P.DS_ITS ---
DS: Providers Provider Date of Service: 12/16/23 Date of admission: 12/08/23 13:19 Date of discharge: 12/16/23 Primary care physician: Unknown Physician Attending physician on admission: Sandra Bentley Consults: 12/08/23 22:00 Addiction Medicine Routine Consulting Provider: Addiction Covering Reason for consultation: pt has history of substance abuse Has provider been notified: No 12/12/23 15:23 Consult to Pulmonology Routine Consulting Provider: [facility] Reason for consultation: 2nd Chest CT; r/o carcinoma (took course of abx 2 months ago) Has provider been notified: No Attending physician on discharge: Ishmael Dunne DS: Diagnosis Discharge Diagnosis (1) Schizoaffective disorder, depressive type: Status: Acute (2) Post traumatic stress disorder (PTSD): Status: Acute (3) ADHD: Status: Acute (4) Alcohol use disorder, severe, dependence: Status: Acute (5) Opioid use disorder, severe, dependence: Status: Acute (6) Abnormal CT scan, chest: Status: Acute (7) Pulmonary emphysema: Status: Acute DS: Medications Discharge Medications Home Medications: Home Medications ?Medication ?Instructions ?Recorded ?Confirmed prazosin 1 mg capsule 2 mg PO BEDTIME 10/14/22 12/07/23 lorazepam 1 mg tablet 1 mg PO BID PRN Agitation 02/07/23 12/07/23 paliperidone 9 mg tablet,extended 9 mg PO DAILY 12/07/23 12/07/23 release 24 hr methadone 10 mg/mL oral 95 mg PO DAILY 12/08/23 12/08/23 concentrate (Methadone Intensol) Previous Rx's ?Medication ?Instructions ?Recorded trazodone 100 mg tablet See Rx Instructions .Route 10/20/22 .COMPLEX PRN insomnia 30 days #30 tabs dextroamphetamine-amphetamine 20 20 mg PO BID 30 days #60 tabs 12/15/23 mg tablet (Adderall) escitalopram oxalate 20 mg tablet 20 mg PO DAILY 30 days #30 tabs 12/15/23 fluticasone fur. 100 mcg-umeclid 1 inh inhalation RDAILY 30 days 12/15/23 62.5 mcg-vilant 25 mcg #60 ea inhalat.powder (Trelegy Ellipta) nicotine (polacrilex) 4 mg buccal 4 mg buccal Q2H PRN Nicotine 12/15/23 lozenge Cravings 30 days #108 ea nicotine 7 mg/24 hr daily 7 mg transdermal DAILY PRN smoking 12/15/23 transdermal patch cessation 14 days #14 ea Mental Status Exam Mental Status Exam Narrative: Pt is alert and oriented; behavior is cooperative, friendly and calm; patient is not in distress; dressed in casual attire and adequately groomed with good hygiene; tattooed legs arms; shaved head; cachectic; ; mood is described as good and affect congruent; eye contact appropriate; Speech is normal rate, volume and prosody and not pressured; no psychomotor agitation/retardation present; thought process is organized and goal directed; Thought content is on tx, worried about cancer; otherwise pertinent to relevant topics and without any delusional content, paranoid ideations or grandiosity; denies any SI/HI. Intermittent AH but minimal Patients insight and judgment fair. Data Data Completed and Pending Completed studies during hospitalization [Text1]: 12/08/23 12/10/23 13:45 07:38 Estimat Average Glucose 100 Hemoglobin A1c % 5.1 Triglycerides 72 Cholesterol 138 LDL Cholesterol, Calc 54 HDL Cholesterol 70 Vitamin B12 492 Folate 14.6 TSH 1.11 TB Test (T-Spot) Com Negative TB Test Nil Control Passed TB Test Panel A 0 TB Test Panel B 0 TB Test Positive Cntrl Passed Imaging Diagnostic Imaging Impressions Cervical Spine CT 12/07/23 17:51 IMPRESSION: Unremarkable examination. Fleischner guidelines were followed. Electronically signed by: Mateo Ha MD 12/07/2023 09:27 PM EDT RP Chest X-Ray 12/07/23 17:51 IMPRESSION: Hyperinflation. No acute cardiopulmonary disease. Electronically signed by: Charly Lambert MD 12/07/2023 08:51 PM EDT RP Chest CT 12/10/23 09:56 IMPRESSION: 1. 3.5 cm region of consolidation/groundglass attenuation in the subpleural region of the lateral right upper lobe. This may be infectious/inflammatory in etiology. Recommend short interval follow-up in 3-6 months. 2. Additional bilateral pulmonary nodules measuring up to 4 mm. Fleischner guidelines were followed. Electronically signed by: Sarahi Jiménez MD 12/11/2023 07:33 AM EDT RP DS: Summary Hospital Course Hospital Course: HPI: 43 yo male, hx of schizoaffective disorder, depressed and polysubstance use disorder to ER with reports of SI and hanging attempt. Precipitants include girlfriend recently miscarried and worried about possibly having lung cancer. Pt reports relapse, AH, VH, poor sleep and appetite. Toxicology positive for opiates, cocaine, fentanyl, cannabis, methadone, suboxone. Reports relapse ~48 hours prior to admission. Drug of choice is cocaine. Today pt is forthcoming in interview. He is fearful of cancer diagnosis, tearful and apprehensive of his future, potential for pain, suffering and potential treatments. He is not wanting to burden his girlfriend as she has just experienced the loss of their child and states, it is just all too much . Hospital course: On admission, patient's mood soon started to improve and SI fully resolved; continued to be anxious. Detoxed without trouble. Patient reports often on sober for over year, being sober for 3 months and then relapsing for week; said combination of concern for cancer diagnosis and girlfriend's miscarriage overwhelmed him and he relapsed with cocaine/alcohol. He says methadone has been helping him otherwise. Patient wants help with aftercare so he can stay sober. Feels that medications overall work and help his mood; however he complains of ongoing anxiety and sometimes near panic attack making a hard to drive. Does not want Zoloft increased since it can cause low libido; understands that a 50 mg off not doing much and agrees to switch to Lexapro which he tolerated well. Reviewed CT chest and discussed results with patient; he remains very anxious that he has cancer. Put in pulmonary consult placed and patient started on inhaler; engineering technical writer discussed case with Dr. Medley says his office will follow-up with patient to make next appointment. Patient's mood significantly improved once he met with rework machine operator. Over subsequent days, continue to report feeling in better mood; tolerating lexapro and agrees to increase further. Trouble sleeping and asks for trazodone to be increased to 100mg. 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 All feel good about plan. Patient felt ready for discharge and dispo planning initiated. Pt remained doing well, good mood, anxiety down, optimistic about sobriety and feeling back to his regular self. Pt is not in imminent risk for harm to self or others. request for discharge honored. Behavioral incident: On the unit patient found smoking a cannabis vape which he said he smuggled in. Time spent discussing smoking cessation with patient: 3 to 10 minutes Status at Discharge Functional status at discharge: independent ambulation Overall status at discharge: patient is back to baseline Time Spent with Patient Time attestation: Total time managing care of this patient today ____ minutes. Time spent: Less than 30 minutes Discharge Plan Discharge Anticipated Discharge Date/Time: 12/16/23 11:00 Patient Disposition: Home, Self-Care Discharge Diagnosis: Schizoaffective disorder, bipolar type Referrals: [facility] Psychiatry w Dr. Welch [Other] - 01/03/24 8:00 am [facility] Supported Recovery [Other] - 3-5 Days [facility] Partial Hospitalization [Other] - 12/18/23 1:00 pm (In parking lot C behind the [employer] trailer - look for Behavioral Health signs. ) Sandy Saavedra PA [Physician] - 3 Months (Pt reported he will call to schedule follow up appointment. ) Discharge Medications: New nicotine 7 mg/24 hr Patch 24 Hour 7 mg transdermal DAILY PRN (Reason: smoking cessation) 14 Days Qty: 14 1RF nicotine (polacrilex) 4 mg Lozenge 4 mg buccal Q2H PRN (Reason: Nicotine Cravings) 30 Days Qty: 108 0RF escitalopram oxalate 20 mg Tablet 20 mg PO DAILY 30 Days Qty: 30 0RF Trelegy Ellipta 100-62.5-25 mcg Blister With Device 1 inh inhalation RDAILY 30 Days Qty: 60 0RF Continued prazosin 1 mg capsule 2 mg PO BEDTIME trazodone 100 mg tablet See Rx Instructions .ROUTE .COMPLEX PRN (Reason: insomnia) 30 Days Qty: 30 0RF Rx Instructions: take one half to one tabe at bedtime by mouth as needed for insomnia paliperidone 9 mg tablet extended release 24 hr 9 mg PO DAILY methadone [Methadone Intensol] 10 mg/mL Concentrate 95 mg PO DAILY dextroamphetamine-amphetamine [Adderall] 20 mg tablet 20 mg PO BID 30 Days Qty: 60 0RF Rx Instructions: administer doses at least 4-6 hours apart lorazepam 1 mg tablet 1 mg PO BID PRN (Reason: Agitation) Discontinued sertraline 50 mg tablet 50 mg PO QAM methadone 95 mg PO DAILY nicotine 14 mg/24 hr patch 24 hour 1 patch transdermal Q24H Qty: 28 0RF Discharge Orders: Discharge Order (Routine); Ordered 12/16/23 Ordered By: Ishmael Dunne Diet: Regular diet Activity on Discharge: As tolerated Stand Alone Forms: Patient Portal Discharge page, Community Support Print Language: Indonesian Care Plan Goals: Maintain mood and safe behaviors Take medications as prescribed Continue to pursue sobriety Practice coping skills Continue with outpatient providers and reach out to them as needed Health Concerns: Mood stability and behaviors Sobriety Mild emphysema Abnormal lung CT Plan of Treatment: Follow up with your PCP, psychiatric provider and other outpatient providers regarding above concerns Take medications as prescribed Assessment: Risk assessment at time of discharge:? Patient was interviewed prior to discharge and found to be fully oriented and without any SI or HI. Patient has improved insight and judgment and wants to continue treatment. Patient is not in imminent risk of harm to self or others and has a safety plan that includes presenting to the closest ER or calling 911 if feeling unsafe.? Patient has been observed closely by nursing and unit staff throughout admission; patient has not engaged in any behaviors that suggest dangerousness to self or others and has demonstrated appropriate behaviors and impulse control Discharge Date/Time: 12/16/23 10:35
[2023-12-16] MEDS: Nicotine Polacrilex Lozenge 4 MG LOZENGE BUCCAL (06:32)
[2023-12-16] MEDS: Naloxone HCl Nasal TAKE HOME 4 MG SPRAY 8 MG NOSTRILALT (06:32)
[2023-12-16] MEDS: Fluticasone/Umeclidinium/Vilanterol 100/62.5/25 BLST.W.DEV 1 PUFF INHALE (07:53)
[2023-12-16] MEDS: methADONE HCl 20 MG/2 ML ORAL.CONC 95 MG PO (07:53)
[2023-12-16 08:00] VITALS: BP 98/64; PULSE 103; RESP 16; TEMP 36.5; O2SAT 98
[2023-12-16] MEDS: Amphetamine Mixed Salts 20 MG TABLET PO (08:44)
[2023-12-16] MEDS: Escitalopram Oxalate 20 MG TABLET PO (08:44)
[2023-12-16] MEDS: LORazepam 1 MG TABLET PO (08:45)
[2023-12-16] MEDS: Paliperidone ER 9 MG TAB.ER.24 PO (08:45)
== END 2023-12-16 10:35 | disposition home or self-care (01) | DRG 750 ==
LOC: HO.ED 12-08 00:21 → HO.PM5 12-08 13:32
PROVIDERS: Clinical Nurse Specialist Psychiatric/Mental Health, Adult; Admitting Provider Psychiatry & Neurology Psychiatry; Emergency Provider Student in an Organized Health Care Education/Training Program; Visit Provider Psychiatry & Neurology Psychiatry
DX: F25.1 Schizoaffective disorder, depressive type (principal); R64 Cachexia; R45.851 Suicidal ideations; F10.20 Alcohol dependence, uncomplicated; F11.20 Opioid dependence, uncomplicated; F17.210 Nicotine dependence, cigarettes, uncomplicated; Z71.6 Tobacco abuse counseling; Y90.5 Blood alcohol level of 100-119 mg/100 ml; F90.9 Attention-deficit hyperactivity disorder, unspecified type; F19.10 Other psychoactive substance abuse, uncomplicated; J43.9 Emphysema, unspecified; R91.8 Other nonspecific abnormal finding of lung field; Z80.1 Family history of malignant neoplasm of trachea, bronchus and lung; Z68.21 Body mass index [BMI] 21.0-21.9, adult; Z79.899 Other long term (current) drug therapy
CPT/HCPCS: 36415; 71046; 71250; 72125; 80053; 80061; 80307; 81001; 81003; 82607; 82746; 83036; 84443; 85025; 86481; 93005; 99285; S9485

== ENCOUNTER → 2023-12-08 13:19 | Outpatient (BNV) | payer OTHER, SELFPAY | PROVIDERS: Admitting Provider Psychiatry & Neurology Psychiatry; Emergency Provider Student in an Organized Health Care Education/Training Program; Visit Provider Internal Medicine Pulmonary Disease | DX: J43.9 Emphysema, unspecified (principal); R93.89 Abnormal findings on diagnostic imaging of other specified body structures | CPT/HCPCS: 99222 ==

== ENCOUNTER → 2023-12-08 13:19 | Outpatient (BNV) | payer OTHER, SELFPAY | PROVIDERS: Admitting Provider Psychiatry & Neurology Psychiatry; Emergency Provider Student in an Organized Health Care Education/Training Program; Visit Provider Clinical Nurse Specialist Psychiatric/Mental Health, Adult | DX: F25.1 Schizoaffective disorder, depressive type (principal); F10.20 Alcohol dependence, uncomplicated; F43.10 Post-traumatic stress disorder, unspecified; F90.9 Attention-deficit hyperactivity disorder, unspecified type | CPT/HCPCS: 90792; 99231; 99232; 99238; 99499 ==

== ENCOUNTER 2023-12-27 21:50 | Emergency (ER) | payer OTHER, SELFPAY ==
[2023-12-27 21:58] VITALS: BP 126/78; PULSE 88; RESP 20; TEMP 36.6; O2SAT 98; BMI 20.6
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
[2023-12-27 22:50] LABS: MANUAL DIFF FLAG NO
[2023-12-27 22:58] LABS: Basophils Percent Auto 0.9 % (0-2); Eosinophils Absolute Auto 0.1 X10*3/uL (0.0-0.4); Eosinophils Percent Auto 2.5 % (0-4); Hematocrit 34.9 % (42.0-52.0); Imm Gran Abs Auto 0.04 X10*3/uL (0.00-0.03); Imm Gran Pct Auto 0.9 % (0.0-0.4); Lymphocytes Absolute Auto 1.5 X10*3/uL (1.2-4.9); Lymphocytes Percent Auto 32.8 % (20-40); Mean Corpuscular HGB Conc 34.4 g/dl (31.0-36.0); Mean Corpuscular Hemoglobin 29.4 pg (27.0-33.0); Mean Corpuscular Volume 85.5 fL (80.0-98.0); Mean Platelet Volume 10.8 fL (9.4-12.4); Monocytes Absolute Auto 0.4 X10*3/uL (0.1-1.2); Monocytes Percent Auto 8.5 % (2-11); Neutrophils Absolute Auto 2.4 x10*3/uL (2.0-8.3); Neutrophils Percent Auto 54.4 % (45-73); Platelet Count 160 X10*3/uL (160-400); Red Blood Count 4.08 X10*6/uL (4.60-5.80); White Blood Count 4.5 X10*3/uL (4.8-10.8)
[2023-12-27 23:08] LABS: Alanine Aminotransferase 65 U/L (0-40); Albumin Level 3.7 g/dL (3.5-5.0); Alkaline Phosphatase 73 U/L (39-117); Anion Gap 13 (12-20); Aspartate Amino Transferase 78 U/L (5-37); Bilirubin Total 0.2 mg/dL (0.0-1.0); Blood Urea Nitrogen 17 mg/dL (9-16); Calcium 8.7 mg/dL (8.4-10.2); Carbon Dioxide 26 mmol/L (22-29); Chloride 106 mmol/L (96-108); Creatinine Clr Calc Pharmacy 137.8; Estimated Glomerular Filt Rate > 60; Ethanol 113 mg/dL; Glucose Random 105 mg/dL (60-115); Potassium 3.8 mmol/L (3.3-5.1); Sodium 141 mmol/L (135-145)
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
[2023-12-28] VITALS: BP 113/57; PULSE 59; RESP 16; TEMP 36.3; O2SAT 97
[2023-12-28 06:00] VITALS: BP 125/79; PULSE 64; RESP 16; TEMP 36.7; O2SAT 97
--- NOTE | 2023-12-28 06:13 | PC.NURSE ---
at this time pt awake, screaming in hallway requesting to leave, pt reports he is angry he is in the hallway. 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 1:1 sitter continues at bedside.
[2023-12-28 07:43] VITALS: BP 112/72; PULSE 67; RESP 16; O2SAT 96
--- NOTE | 2023-12-28 07:44 | PC.NURSE ---
Care of Pt assumed at change of shift. Pt initially resting quietly on stretcher but is now awake and agitated. Pt reports methadone from [facility] and demands he be dosed. Pt advised he is scheduled to see Care Team and inquires on how long his wait will be and is agitated when a definitive timeline cannot be given. VSS; NAD noted at this time.
[2023-12-28] MEDS: LORazepam 1 MG TABLET 2 MG PO (09:25)
--- NOTE | 2023-12-28 10:12 | PC.NURSE ---
Call placed to [facility] at [phone] to verify methadone dose for Pt. Two calls placed this morning in attempt to verify with no answer. Voicemail left with call back number for ED.
--- NOTE | 2023-12-28 10:46 | PC.NURSE ---
Third attempt to contact [facility] for dose verification. histology supervisor contact # used [phone] and spoke with PAPO Rice. Krystal verifies Pt received 95mg Methadone last on 12/27/23 at 0800. Methadone verification form faxed to pharmacy; awaiting orders. Pt aware verification complete.
--- NOTE | 2023-12-28 10:56 | HE.PHANOTE ---
RE METHADONE Patient verification form confirms patient receives 95 mg from [facility] methadone [facility], last dose 12/27/23
--- NOTE | 2023-12-28 12:15 | PC.NURSE ---
Spoke with Admissions who reports Pt may be able to have a bed at [facility] in [place]. Discussed with Pt and Pt adamently states he will not go to [place]. Information relayed back to Admissions who will discuss with Care Team.
[2023-12-28] MEDS: methADONE HCl 20 MG/2 ML ORAL.CONC 95 MG PO (12:59)
[2023-12-28 13:08] VITALS: BP 00/00; PULSE 0; RESP 0; TEMP -17.7; TEMP 0
== END 2023-12-28 13:09 | disposition home or self-care (01) ==
PROVIDERS: Emergency Provider Emergency Medicine
DX: R44.1 Visual hallucinations (principal); R45.851 Suicidal ideations; Z91.148 Patient's other noncompliance with medication regimen for other reason; Z79.899 Other long term (current) drug therapy
CPT/HCPCS: 36415; 80053; 80307; 85025; 99284; 99285; S9485

== ENCOUNTER 2024-09-09 12:44 | Inpatient (IN) | payer OTHER, SELFPAY ==
[2024-09-09 12:57] VITALS: BP 133/85; PULSE 118; RESP 18; TEMP 36.9; O2SAT 98; BMI 29.6
--- NOTE | 2024-09-09 12:57 | ED.PSYCH ---
HPI - Psych General Chief Complaint: Psychiatric Symptoms Stated Complaint: CRISIS Time Seen by Provider: 09/09/24 13:11 Source: patient Mode of arrival: ambulatory Limitations: no limitations History of Present Illness ED Provider: ENEDINA LICONA PA-C HPI Narrative: 44-year-old male with past medical history significant for schizoaffective disorder, depression and polysubstance use disorder on methadone 135 mg daily presents to the ED today for evaluation of severe depression. Patient states he was released from half-way approximately 1 month ago after a 3 month stay. While here he was started back on risperidone. Reports following up with his psychiatrist about 2 weeks ago who took him off of his risperidone and started him back on Invega. Reports increasing repetitive thoughts, worsening. Admits to suicidal ideation with plan to hang himself. Denies HI however reports feeling very agitated. He is afraid that it will get to a point where he lashes out at someone. States it is taking everything in me to not lash out. Reports seeing shadows of people around him. Denies tactile hallucinations. Denies any illicit substance use. Denies EtOH consumption. Patient states he received his methadone dose this morning at [facility] on on [address]. Reports compliance with all other medications as well. No physical concerns at present. Related Data Home Medications ?Medication ?Instructions ?Recorded ?Confirmed prazosin 1 mg capsule 2 mg PO DAILY PRN Anxiety 10/14/22 09/09/24 methadone 10 mg/mL oral 135 mg PO DAILY 12/08/23 09/09/24 concentrate (Methadone Intensol) albuterol sulfate 90 mcg/actuation 1 inh inhalation QID PRN asthma 09/09/24 09/09/24 aerosol inhaler (Ventolin HFA) benztropine 1 mg tablet 1 mg PO BID 09/09/24 09/09/24 dextroamphetamine-amphetamine ER 1 cap PO TID 09/09/24 09/09/24 20 mg 24hr capsule,extend release (Adderall XR) docusate sodium 100 mg capsule 100 mg PO BEDTIME PRN Constipation 09/09/24 09/09/24 (Colace) escitalopram oxalate 10 mg tablet 10 mg PO DAILY 09/09/24 09/09/24 fluticasone 500 mcg-salmeterol 50 1 inh inhalation BID 09/09/24 09/09/24 mcg/dose blistr powdr for inhalation (Wixela Inhub) paliperidone 6 mg tablet,extended 6 mg PO DAILY 09/09/24 09/09/24 release 24 hr prazosin 2 mg capsule 2 mg PO BEDTIME 09/09/24 09/09/24 trazodone 100 mg tablet 100 mg PO BEDTIME insomnia 09/09/24 09/09/24 Allergies Allergy/AdvReac Type Severity Reaction Status Date / Time tomato [Tomato] Allergy Severe DIFFICULTY Verified 09/09/24 13:01 BREATHING, swelling of face and throat divalproex sodium Allergy Mild SEIZURES Verified 09/09/24 13:01 [From Depakote] olanzapine [From Zyprexa] Allergy Mild NIPPLES Verified 09/09/24 13:01 LEAK risperidone [From Risperdal] Allergy Mild UNKNOWN Verified 09/09/24 13:01 quetiapine [From SEROQUEL] Allergy Unknown HEART Verified 09/09/24 13:01 PALPITATIONS lithium [[place]] AdvReac Mild STOMACH Verified 09/09/24 13:01 PAIN aripiprazole [From ABILIFY] AdvReac Unknown DYSTONIA Verified 09/09/24 13:01 Review of Systems Review of Systems: Constitutional: No fever, chills, fatigue, night sweats, weight changes ENT/Mouth: No ear pain, hearing loss, nasal congestion, sinus pain, rhinorrhea, sore throat Eyes: No eye pain, swelling, redness, vision changes, discharge Cardio: No chest pain, palpitations, GUZMAN, orthopnea, peripheral edema Pulm: No SOB, cough, sputum, wheezing, dyspnea, hemoptysis GI: No nausea, vomiting, hematemesis, abdominal pain, diarrhea, constipation, hematochezia, melena : No irregular bleeding, dysuria, frequency, urgency, hesitancy, hematuria, flank pain, urinary flow changes, urinary incontinence or retention MSK: No back pain, neck pain, joint pain, myalgias Skin: No lesions, rashes Neuro: No weakness, numbness, paresthesias, LOC, dizziness, headache Psych: No anxiety/panic, depression, HI +SI, +AH/VH All other systems reviewed and are negative. [facility] Past Medical History Attestation statement: The following information was validated with the patient. Source: old records reviewed and nursing notes reviewed Medical History Abnormal CT scan, chest Hepatitis C Cocaine use disorder Schizoaffective disorder, depressive type Opioid use disorder, severe, dependence Cocaine use disorder Panic anxiety syndrome OCD (obsessive compulsive disorder) Post traumatic stress disorder (PTSD) HTN (hypertension) Surgical History No pertinent past surgical history Social History Social History Household Members: Family Household Members Other:: lives alone Housing: House Do you presently have visiting nurse or other home services: No Unable to assess alcohol history related to: Refusing to respond Alcohol intake: current Alcohol intake frequency: a few times a week Alcohol type: beer and hard liquor Comment: M3 Patient Tobacco Use Status: Current everyday Tobacco user Tobacco use type: Cigarette Cigarette Packs Per Day: 0.3 Cigarettes Per Day: 6.0 Years Smoked: 30+ Smoked in Last 30 Days: Yes e-Cigarette/Vaping Use: Currently Using Patient Interested in Nicotine Replacement: Yes Patient Given Instructions on How to Stop Smoking: No Second Hand Smoke Exposure: Yes Use of substances other than those prescribed or required for medical reasons: No Substance Use Type: Crack/Cocaine and Marijuana Currently Displaying Signs/Symptoms of Drug Intoxication Withdrawal: No Have you been hit, kicked, punched, or otherwise hurt by someone within the past year? If so, by whom?: No Do you feel safe in your current relationship?: Yes Is there a partner from a previous relationship who is making you feel unsafe now?: No Are you made to feel afraid or neglected: No Spiritual Healthcare Practices: n/a [facility] Healthcare Practices: n/a Cultural Healthcare Practices: n/a Advance Directives: No Advance Directives Information Provided: Yes Do you have thoughts of harming others: None Do you have a plan to hurt others: No Plan Recently lost weight without trying: No How much weight loss: Not applicable Eating poorly because of decreased appetite: No Nutrition screen score: 0 Nutrition Risks: No Nutritional Risk Poor oral hygiene: No service: No Sexual orientation: Straight/Heterosexual Physical Exam Vital Signs: Vital Signs: Last Vital Signs Temp 97.5 F 09/12/24 08:00 Pulse 96 09/12/24 08:00 Resp 16 09/12/24 08:00 BP 104/64 09/12/24 08:00 Pulse Ox 98 09/12/24 08:00 O2 Del Method Room Air 09/11/24 20:00 BMI result Body Mass Index 29.6 Tachycardic, vitals otherwise WNL General: restless Skin: Warm, dry, intact. No rashes or lesions. Head: Normocephalic, atraumatic. EENT: Hearing is intact b/l. Conjunctiva clear. Sclera is anicteric. PERRLA. EOM intact. Moist mucous membranes.? Cardiac: Chest wall symmetric. RRR Lungs: Normal respiratory effort without accessory muscle use. CTA bilaterally Abdomen: Soft, non-tender, non-distended. No rebound tenderness or guarding. Positive BS x4. Back: No midline spinous or paraspinal tenderness. No step off deformity. Ext: Upper and lower extremities atraumatic, without tenderness, deformity, swelling or erythema Neuro: AOx3. Normal speech. CN 2-12 grossly intact. Ambulating with steady gait Course Course Course Narrative: This is an RME: Additional HPI, ROS, PE not included below will be deferred to primary provider. RME assessment and note performed by: Alejandra Pfeiffer PA-C This is a 13-tsxr-caf-male, with a hx of schizoaffective disorder, depressed and polysubstance use disorder on methadone 135mg (received dose today) to ER with concerns for severe depression. Reports that he is getting off risperidol and starting back on invega - which he started doing several weeks ago. Reports that he has had thoughts that are replaying in his head which started several days ago and has gotten worse. Reporting increased agitation and has had difficulty managing his anger. Reports that he has suicidal ideations as well. Unable to answer HI. Plan: Labs, UA, care team Reevaluation(s) Reevaluation #1: 4815 -- CBC without leukocytosis or left shift. No anemia. H&H stable. Chemistry without acute electrolyte abnormality requiring intervention. BUN mildly elevated to 20 with normal creatinine. Will encourage oral hydration. Random glucose 117. Liver function around baseline. Urine without infection. U tox positive for methadone and amphetamines, otherwise negative. Ethanol undetectable. Salicylates and acetaminophen undetectable. > patient is medically cleared at this time. Placed in physician observation pending care team and disposition. Reevaluation #2: Time: 06:17 Date: 09/10/24 Provider: Mason Noriega MD Patient in physician observation for psychiatric evaluation.? Patient has been in the emergency department for 17 hours. Patient was evaluated by the care team patient I did review the note. Patient presented with severe depression, suicidal ideation with a plan. He also reports command hallucinations. Patient stopped his methadone and Invega injections. Patient met voluntary inpatient level of care therefore will be kept in the emergency department Behavioral Health Unit until appropriate bed can be found for the patient. No acute events reported overnight. No current complaints. VS stable Except for an elevated heart rate of 118. Will continue to monitor. Reevaluation #3: Time: 13:47 Date: 09/10/24 Provider: Mason Noriega MD Physician observation ended at 13:47 hours. Patient to be admitted as inpatient to psychiatry. Medications Administered Generic Name Dose Route Start Last Admin Trade Name Freq PRN Reason Stop Dose Admin Amphetamine/Dextroamphetamine 30 mg 09/11/24 14:00 09/12/24 08:54 Dextroamphetamine/Amphetamine Xr 10 Mg Cap.Er.24h PO 30 mg BID@0830,1330 RISSA Administration Benztropine Mesylate 1 mg 09/09/24 21:00 09/12/24 08:54 Benztropine Mesylate 1 Mg Tablet PO 1 mg BID RISSA Administration Escitalopram Oxalate 10 mg 09/10/24 09:00 09/12/24 08:55 Escitalopram Oxalate 10 Mg Tablet PO 10 mg DAILY RISSA Administration Fluticasone/Vilanterol 1 puff 09/10/24 08:00 09/12/24 08:54 Fluticasone/Vilanterol 200/25 Blst.W.Dev INHALE 1 puff RDAILY RISSA Administration Lorazepam 2 mg 09/10/24 11:01 09/11/24 20:44 Lorazepam 1 Mg Tablet PO 2 mg Q6H PRN Administration anxiety, agitation Methadone HCl 135 mg 09/10/24 09:00 09/12/24 07:51 Methadone Hcl 20 Mg/2 Ml Oral.Conc PO 135 mg DAILY RISSA Administration Nicotine 21 mg 09/10/24 13:18 09/12/24 08:54 Nicotine 21 Mg Patch.Td24 TRANSDERMA 21 mg DAILY PRN Administration smoking cessation Nicotine Polacrilex 4 mg 09/10/24 13:18 09/12/24 08:54 Nicotine Polacrilex 2 Mg Gum BUCCAL 4 mg Q2H PRN Administration Nicotine Cravings Paliperidone 6 mg 09/10/24 09:00 09/12/24 08:55 Paliperidone Er 6 Mg Tab.Er.24 PO 6 mg DAILY RISSA Administration Prazosin HCl 2 mg 09/09/24 13:50 09/09/24 14:08 Prazosin Hcl 1 Mg Capsule PO 2 mg DAILY PRN Administration Anxiety Protocol Prazosin HCl 2 mg 09/09/24 21:00 09/11/24 20:44 Prazosin Hcl 1 Mg Capsule PO 2 mg BEDTIME RISSA Administration Protocol Trazodone HCl 100 mg 09/09/24 21:00 09/11/24 20:44 Trazodone Hcl 100 Mg Tablet PO 100 mg BEDTIME RISSA Administration Discontinued Medications Generic Name Dose Route Start Last Admin Trade Name Freq PRN Reason Stop Dose Admin Amphetamine/Dextroamphetamine 20 mg 09/09/24 15:00 09/11/24 08:04 Dextroamphetamine/Amphetamine Xr 10 Mg Cap.Er.24h PO 20 mg TID RISSA Administration Medical Decision Making Medical Decision Making MDM Narrative: 44-year-old male with past medical history significant for schizoaffective disorder, depression and polysubstance use disorder on methadone 135 mg daily presents to the ED today for evaluation of severe depression. Differential diagnosis includes anemia, electrolyte abnormality, mood disorder, anxiety, depression, SI, polysubstance abuse, medcation SE Presentation not consistent with acute organic causes to include delirium, dementia or drug induced disorders (acute ingestions or withdrawal; no evidence of toxidrome).? Given the H&P, I suspect this patient is suicidal and will require observation. Will consult care team to evaluate the patient. Will also obtain labs for medical clearance. Plan: labs, EKG, ASA/APAP levels, ETOH level, UDS, care team consultation, reassessment Differential Diagnosis Differential Diagnoses: The differential diagnosis associated with the presentation includes as above. Admission/Observation Consideration of admission/observation: Escalation of care including admission/observation considered Lab Data MDM Lab Attestation statement: I reviewed the patient's lab results. as above. 09/09/24 13:46 09/11/24 08:32 Labs: Lab Results 09/09/24 Range/Units 13:46 WBC 5.0 (4.8-10.8) X10*3/uL RBC 5.08 D (4.60-5.80) X10*6/uL Hgb 15.2 D (14.0-18.0) g/dl Hct 43.7 D (42.0-52.0) % MCV 86.0 (80.0-98.0) fL MCH 29.9 (27.0-33.0) pg MCHC 34.8 (31.0-36.0) g/dl RDW 11.5 (11.0-16.0) % Plt Count 148 L (160-400) X10*3/uL MPV 11.7 (9.4-12.4) fL Immature Gran % (Auto) 0.8 H (0.0-0.4) % Neut % (Auto) 63.9 (45-73) % Lymph % (Auto) 26.5 (20-40) % [place] % (Auto) 7.0 (2-11) % Eos % (Auto) 1.2 (0-4) % Baso % (Auto) 0.6 (0-2) % Lymph # (Auto) 1.3 (1.2-4.9) X10*3/uL [place] # (Auto) 0.4 (0.1-1.2) X10*3/uL Eos # (Auto) 0.1 (0.0-0.4) X10*3/uL Baso # (Auto) 0.0 (0.0-0.2) X10*3/uL Abs Immat Gran (auto) 0.04 H (0.00-0.03) X10*3/uL Absolute Neuts (auto) 3.2 (2.0-8.3) x10*3/uL Absolute Nucleated RBC 0.000 (0.0-0.012) X10*3/uL Nucleated RBC % (auto) 0.0 (0.0-0.2) /100WBC Smear Tech's Comments VERIFIED Sodium 138 (135-145) mmol/L Potassium 4.9 D (3.3-5.1) mmol/L Chloride 102 (96-108) mmol/L Carbon Dioxide 26 (22-29) mmol/L Anion Gap 15 (12-20) BUN 20 H (9-16) mg/dL Creatinine 0.89 (0.5-1.4) mg/dL Estim Creat Clear Calc 126.3 Estimated GFR > 60 Random Glucose 117 H (60-115) mg/dL Calcium 9.5 D (8.4-10.2) mg/dL Total Bilirubin 0.4 (0.0-1.0) mg/dL AST 114 H (5-37) U/L ALT 95 H (0-40) U/L Alkaline Phosphatase 74 (39-117) U/L Total Protein 7.9 (6.5-8.0) g/dL Albumin 4.5 (3.5-5.0) g/dL Urine Color Dark Yellow Urine Appearance Clear Urine pH 7.5 (5.0-9.0) Ur Specific [place] 1.020 (1.005-1.025) Urine Protein Negative (Neg-Trace) mg/dL Urine Glucose (UA) Negative (Negative) mg/dL Urine Ketones Trace (Negative) mg/dL Urine Blood Negative (Negative) Urine Nitrite Negative (Negative) Ur Leukocyte Esterase Negative (Negative) Salicylates < 5.0 L (15-30) mg/dL Urine Opiates Screen Not Detected (Not Detect) Ur Buprenorphine Scrn Not Detected (Not Detect) ng/mL Ur Oxycodone Screen Not Detected (Not Detect) ng/mL Urine Methadone Screen Positive H (Not Detect) ng/mL Urine Fentanyl Screen Not Detected (Not Detect) Acetaminophen < 3 (<30) mcg/mL Ur Barbiturates Screen Not Detected (Not Detect) Ur Phencyclidine Scrn Not Detected (Not Detect) Ur Amphetamines Screen POSITIVE H (Not Detect) U Benzodiazepines Scrn Not Detected (Not Detect) Urine Cocaine Screen Not Detected (Not Detect) U Marijuana (THC) Screen Not Detected (Not Detect) Ethyl Alcohol < 10 mg/dL External Record Review External record reviewed: Inpatient record Chronic Conditions Patient?s care impacted by: Other (Schizoaffective disorder PTSD ADHD MDD) Social Determinants Patient?s care significantly limited by Social Determinants of Health including: Other Social Determinant of Health Critical Care Time Critical Care Time Critical Care Time: No Discharge Plan Discharge Clinical Impression: Suicidal ideation Patient Disposition: Admitted As Inpatient Discharge Date/Time: 09/10/24 14:18
[2024-09-09 13:42] VITALS: RESP 16
--- NOTE | 2024-09-09 13:47 | HE.PHANOTE ---
RE: METHADONE DOSING Last dose of methadone 135 mg was given on 09/09/24 @0681 at [facility] [phone] per PAPO Pelletier.
[2024-09-09 13:58] LABS: Appearance Urine Clear; Color Urine Dark Yellow; Glucose Urine UA Negative (Negative); Leukocyte Esterase Urine Negative (Negative); Nitrite Urine Negative (Negative); PH 7.5 (5.0-9.0); Urine Blood Negative (Negative); Urine Ketones Trace mg/dL (Negative); Urine Protein Negative (Neg-Trace)
[2024-09-09 14:03] LABS: Basophils Percent Auto 0.6 % (0-2); Eosinophils Absolute Auto 0.1 X10*3/uL (0.0-0.4); Eosinophils Percent Auto 1.2 % (0-4); Hematocrit 43.7 % (42.0-52.0); Hemoglobin 15.2 g/dl (14.0-18.0); Imm Gran Abs Auto 0.04 X10*3/uL (0.00-0.03); Imm Gran Pct Auto 0.8 % (0.0-0.4); Lymphocytes Absolute Auto 1.3 X10*3/uL (1.2-4.9); Lymphocytes Percent Auto 26.5 % (20-40); MANUAL DIFF FLAG SCAN; Mean Corpuscular HGB Conc 34.8 g/dl (31.0-36.0); Mean Corpuscular Hemoglobin 29.9 pg (27.0-33.0); Monocytes Absolute Auto 0.4 X10*3/uL (0.1-1.2); Neutrophils Absolute Auto 3.2 x10*3/uL (2.0-8.3); Neutrophils Percent Auto 63.9 % (45-73); PLT CLUMP 1; Red Blood Count 5.08 X10*6/uL (4.60-5.80); Red Cell Distribution Width 11.5 % (11.0-16.0); SCAN SMEAR FLAG 1
[2024-09-09 14:07] LABS: Amphetamine Screen Urine POSITIVE (Not Detect); Barbiturates, Urine Not Detected (Not Detect); Benzodiazepines Screen Urine Not Detected (Not Detect); Buprenorphine Scr Not Detected (Not Detect); Cannabinoid Screen Urine Not Detected (Not Detect); Cocaine Screen Urine Not Detected (Not Detect); Fentanyl, urine Not Detected (Not Detect); Methadone Screen, Urine Positive (Not Detect); Opiate Screen Urine Not Detected (Not Detect); Oxycodone Screen Urine Not Detected (Not Detect); Phencyclidine Screen Urine Not Detected (Not Detect)
[2024-09-09] MEDS: Prazosin HCL 1 MG CAPSULE 2 MG PO (14:08)
[2024-09-09 14:14] LABS: Acetaminophen LAB < 3 mcg/mL (<30); Alanine Aminotransferase 95 U/L (0-40); Albumin Level 4.5 g/dL (3.5-5.0); Alkaline Phosphatase 74 U/L (39-117); Anion Gap 15 (12-20); Aspartate Amino Transferase 114 U/L (5-37); Bilirubin Total 0.4 mg/dL (0.0-1.0); Blood Urea Nitrogen 20 mg/dL (9-16); Calcium 9.5 mg/dL (8.4-10.2); Carbon Dioxide 26 mmol/L (22-29); Chloride 102 mmol/L (96-108); Creatinine Clr Calc Pharmacy 126.3; Estimated Glomerular Filt Rate > 60; Ethanol < 10 mg/dL; Glucose Random 117 mg/dL (60-115); Potassium 4.9 mmol/L (3.3-5.1); Salicylate < 5.0 mg/dL (15-30); Sodium 138 mmol/L (135-145); Total Protein 7.9 g/dL (6.5-8.0)
[2024-09-09 14:19] LABS: Platelet Count 148 X10*3/uL (160-400)
[2024-09-09 14:20] LABS: Mean Platelet Volume 11.7 fL (9.4-12.4)
[2024-09-09 15:23] LABS: SLIDE REVIEW VERIFIED
--- OUTSIDE RECORDS SUMMARY | 2024-09-09 16:55 | XMS_ITS | Encounter Summary ---
Author Organization [employer] Address [address] [place] [address] Care Team Providers Care Property Portfolio Officer Name Role Phone Unavailable Primary Care Provider Unavailabl e Reason for Visit * Reason Onset Date Comments New patient Appt 11/15/2022 Encounter Details Date Type Department Care Team (Late st Contact Info) Description 11/15/2022 Telephone [facility] [address] [place], [place] [phone] Shaun Abel MD [address] [place], [place] [phone] New patient Appt Social History Tobacco Use Types Packs/Day Years Used Date Smoking Tobacco: Never Assessed Sex and Gender Information Value Date Recorded Sex Assigned at Male 02/07/2022 10:27 AM EDT Legal Sex Male 10:27 AM EDT Gender Identity Not on file Sexual Orientation Not on file documented as of this encounter Miscellaneous Notes * Telephone Encounter - Sanam Casas - 11/15/2022 4:07 PM EDT Tc to pt, to offer STRATEGIC DEBRIEFING OFFICER Appt, pt answered. Advised that seems like he does not have insurance at thistime to please call [facility], pt hung up call, retry phone call no answer. documented in this encounter Plan of Treatment Not on file documented as of this encounter Visit Diagnoses Not on filedocumented in this encounter
--- NOTE | 2024-09-09 20:34 | PC.NURSE ---
ASSUMED CARE FOR PT AT APPROXIMATELY 1845. PT HAS BEEN SLEEPING. NO APPARENT DISTRESS AT THIS TIME. [facility].
--- NOTE | 2024-09-10 | ECG_ITS ---
Test Reason : r/0 prolonged qt Blood Pressure : */* mmHG Vent. Rate : 85 BPM Atrial Rate : 85 BPM P-R Int : 148 ms QRS Dur : 92 ms QT Int : 416 ms P-R-T Axes : 73 27 69 degrees QTcB Int : 495 ms Normal sinus rhythm Prolonged QT Abnormal ECG When compared with ECG of 08-Dec-2023 11:28, No significant change was found Referred By: Vinita Hubbard Electronically Signed By: COREY MENDOSA
[2024-09-10] MEDS: methADONE HCl 20 MG/2 ML ORAL.CONC 135 MG PO (08:44)
[2024-09-10] MEDS: Benztropine Mesylate 1 MG TABLET PO ×2 (08:44→21:21)
[2024-09-10] MEDS: Dextroamphetamine/Amphetamine XR 10 MG CAP.ER.24H 20 MG PO ×3 (08:44→20:18)
[2024-09-10] MEDS: Escitalopram Oxalate 10 MG TABLET PO (08:44)
[2024-09-10] MEDS: Paliperidone ER 6 MG TAB.ER.24 PO (08:44)
[2024-09-10 08:48] VITALS: BP 122/74; PULSE 89; RESP 16; TEMP 36.2; O2SAT 98
--- NOTE | 2024-09-10 08:55 | MHC.EDTECH ---
This tech saw patient had an ankle monitor on. Patient does not have lithopone charger here. This tech provided patient number to [facility] (usp) so that patient could have staff bring his charging cord.
[2024-09-10] MEDS: Fluticasone/Vilanterol 200/25 BLST.W.DEV 1 PUFF INHALE (09:06)
--- NOTE | 2024-09-10 09:09 | PC.NURSE ---
Patient is a 44-year-old male with past medical history significant for schizoaffective disorder, depression and polysubstance use disorder on methadone 135 mg daily presents to the ED today for evaluation of severe depression with a recent medication change. Patient states he was released from [facility]ial approximately 1 month ago after a 3 month stay. Has an ankle monitor. Reports increasing repetitive thoughts, worsening. Admits to suicidal ideation with plan to hang himself. Denies HI however reports feeling very agitated. Patient alert and oriented, sl agitated regarding some personal issues. Respirations even and non-labored. Patient is a in-patient bed search.
--- NOTE | 2024-09-10 10:10 | MHC.EDTECH ---
Patient PO officer Lindsey Lugo [phone] - needs to be contacted if patients location changes. RN aware
--- NOTE | 2024-09-10 11:10 | PHA.MEDREC ---
Addendum entered by Raj Julian RP 09/10/24 11:40: med rec checked by [facility] Original Note: Pharmacy Consult ? Medication Reconciliation Pharmacy has reviewed the medication reconciliation done by nursing. Claims match med list.
[2024-09-10] MEDS: LORazepam 1 MG TABLET 2 MG PO (11:53)
--- NOTE | 2024-09-10 11:55 | PC.NURSE ---
Patient appears agitated, noted to be pacing in the room. Queried the patient as to why he was so agitated, as he has had multiple upsetting phone calls with a significant other. Patient is unable to elaborate on his state of being. Medicated with prn ativan. Pending effect.
--- NOTE | 2024-09-10 13:47 | PC.NURSE ---
Report given to Kalee RN. Patient is to transition to N5
[2024-09-10 15:25] VITALS: BP 120/76; PULSE 123; RESP 18; TEMP 36.4; O2SAT 97
--- NOTE | 2024-09-10 16:30 | PC.NURSE ---
Pt arrived at 1403 from [facility] where he self presented with command AH, VH and SI. Pt currently reports all of these symptoms. Stating AVH are intermittent but when they start they usually go on for about 20 minutes before the thoughts/voices change to something else. Pt reports intermittent suicidal thoughts but contracts for safety on the unit. Pt reports being in [facility] within the last several months and had med changes done there. Pt reports not feeling right since these med changes. Pt has community providers, PCP, psychiatrist and therapist. Currently does not want to sign any releases, wants to think about it . Pt is well known to the unit. Skin check unremarkable. Pt reports relapse on drugs which led to his stay in [facility] (did not specify which drugs) but other than that states sobriety from drugs and alcohol for about a year. Pt currently has ankle monitor, call placed to the POD to find the occupational health technician which he states was dropped off this morning. Pt declined quitworks, on NRT, methadone has been verified. Pt signed a CV with Dr. Dunne.
[2024-09-10] MEDS: Nicotine Polacrilex 2 MG GUM 4 MG BUCCAL (19:18)
[2024-09-10 19:44] VITALS: BP 125/77; PULSE 113; RESP 16; TEMP 36.2; O2SAT 98
[2024-09-10] MEDS: Prazosin HCL 1 MG CAPSULE 2 MG PO (21:21)
[2024-09-10] MEDS: traZODone HCL 100 MG TABLET PO (21:21)
[2024-09-11] MEDS: methADONE HCl 20 MG/2 ML ORAL.CONC 135 MG PO (07:44)
[2024-09-11 08:00] VITALS: BP 126/69; PULSE 93; RESP 18; TEMP 36.4; O2SAT 98
[2024-09-11] MEDS: Fluticasone/Vilanterol 200/25 BLST.W.DEV 1 PUFF INHALE (08:04)
[2024-09-11] MEDS: Nicotine Polacrilex 2 MG GUM 4 MG BUCCAL (08:04)
[2024-09-11] MEDS: Benztropine Mesylate 1 MG TABLET PO ×2 (08:04→20:44)
[2024-09-11] MEDS: Escitalopram Oxalate 10 MG TABLET PO (08:04)
[2024-09-11] MEDS: Paliperidone ER 6 MG TAB.ER.24 PO (08:04)
[2024-09-11] MEDS: Dextroamphetamine/Amphetamine XR 10 MG CAP.ER.24H 20 MG PO (08:04)
[2024-09-11] MEDS: Nicotine 21 MG PATCH.TD24 TRANSDERMA (08:05)
[2024-09-11 08:56] LABS: Estimated Average Glucose 108 mg/dL; Hemoglobin A1C 119.2486 umol/L; Hemoglobin A1c % 5.4 % (<6.0); Total Hemoglobin (HGBA1C) 3399.0596 umol/L
[2024-09-11 09:18] LABS: Alanine Aminotransferase 80 U/L (0-40); Albumin Level 4.1 g/dL (3.5-5.0); Anion Gap 14 (12-20); Aspartate Amino Transferase 76 U/L (5-37); Bilirubin Total 0.3 mg/dL (0.0-1.0); Blood Urea Nitrogen 26 mg/dL (9-16); Calcium 9.3 mg/dL (8.4-10.2); Carbon Dioxide 27 mmol/L (22-29); Chloride 104 mmol/L (96-108); Cholesterol 144 mg/dL (<200); Creatinine Clr Calc Pharmacy 158.4; Estimated Glomerular Filt Rate > 60; Glucose Random 95 mg/dL (60-115); HDL Cholesterol 66 mg/dL (>40); LDL Cholesterol Calculated 64 mg/dL (<100); Potassium 4.8 mmol/L (3.3-5.1); Sodium 140 mmol/L (135-145); Total Protein 6.8 g/dL (6.5-8.0); Triglycerides 74 mg/dL (<150)
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
[2024-09-11] MEDS: LORazepam 1 MG TABLET 2 MG PO ×2 (11:47→20:44)
[2024-09-11 13:12] LABS: Alkaline Phosphatase 84 U/L (39-117)
[2024-09-11] MEDS: Dextroamphetamine/Amphetamine XR 10 MG CAP.ER.24H 30 MG PO (14:05)
[2024-09-11 20:00] VITALS: BP 106/70; PULSE 115; RESP 16; TEMP 36.6; O2SAT 96
[2024-09-11] MEDS: Prazosin HCL 1 MG CAPSULE 2 MG PO (20:44)
[2024-09-11] MEDS: traZODone HCL 100 MG TABLET PO (20:44)
[2024-09-12 07:00] VITALS: BMI 33.9
[2024-09-12] MEDS: methADONE HCl 20 MG/2 ML ORAL.CONC 135 MG PO (07:51)
[2024-09-12 08:00] VITALS: BP 104/64; PULSE 96; RESP 16; TEMP 36.4; O2SAT 98
[2024-09-12] MEDS: Fluticasone/Vilanterol 200/25 BLST.W.DEV 1 PUFF INHALE (08:54)
[2024-09-12] MEDS: Nicotine 21 MG PATCH.TD24 TRANSDERMA (08:54)
[2024-09-12] MEDS: Benztropine Mesylate 1 MG TABLET PO ×2 (08:54→21:37)
[2024-09-12] MEDS: Dextroamphetamine/Amphetamine XR 10 MG CAP.ER.24H 30 MG PO (08:54)
[2024-09-12] MEDS: Nicotine Polacrilex 2 MG GUM 4 MG BUCCAL ×2 (08:54→14:23)
[2024-09-12] MEDS: Paliperidone ER 6 MG TAB.ER.24 PO (08:55)
[2024-09-12] MEDS: Escitalopram Oxalate 10 MG TABLET PO (08:55)
--- NOTE | 2024-09-12 09:32 | P.PNPSI_ITS ---
Subjective Subjective Date of Service: 09/12/24 Reason For Visit: SI Subjective Notes: Conditional Voluntary Healthcare Proxy: No Guardianship: No Medical Problems Affecting Mental Status: No Interim History: Patient notes that he feels good and holding it together. His sleep is fragmented but feels rested. He reports moderate anxiety and depressive symptoms. He is taking his medications as prescribed. He denies SI/AH/VH. He requests for his Adderall to be change from extended release to immediate release for effectiveness. Medication Compliance: Yes Side effects from medications: No Attending Groups: Intermittent Review of Systems Acute medical concerns: No Medical Review of Systems: unchanged Mental Status Exam Mental Status Exam Narrative: Appearance: Casually dressed Behavior: Calm and cooperative throughout the interview. Eye contact is appropriate, and there are no signs of psychomotor retardation. Positive mild psychomotor agitation with hand wringing and restlessness Speech: Normal volume and prosody Thought process logical and goal-directed Thought content: Future oriented Mood: Anxious Affect: Blunted, mood-congruent SI:Reports HI: Denies VH/AH: Reports Delusions: None Insight/judgment: Impaired insight and judgment Memory/cog: Alert, oriented x 4. grossly intact to conversational testing Diagnostics Vital Signs (24Hr): Vital Signs - 24 hr 09/11/24 20:00 09/12/24 08:00 Temperature 97.8 F 97.5 F Pulse Rate 115 H 96 Respiratory Rate 16 16 Blood Pressure 106/70 104/64 Pulse Oximetry 96 98 Oxygen Delivery Method Room Air BMI result Body Mass Index 29.6 Labs 09/09/24 13:46 09/11/24 08:32 Labs: Laboratory Results - last 48 hr 09/11/24 08:32 Sodium 140 Potassium 4.8 Chloride 104 Carbon Dioxide 27 Anion Gap 14 BUN 26 H Creatinine 0.71 Estim Creat Clear Calc 158.4 Estimated GFR > 60 Random Glucose 95 Estimat Average Glucose 108 Hemoglobin A1c % 5.4 Calcium 9.3 Total Bilirubin 0.3 AST 76 H ALT 80 H Alkaline Phosphatase 84 Total Protein 6.8 Albumin 4.1 Triglycerides 74 Cholesterol 144 LDL Cholesterol, Calc 64 HDL Cholesterol 66 TSH 1.90 Medications Medications Current Medications Acetaminophen (Acetaminophen 325 Mg Tablet) 650 mg PO Q6H PRN PRN Reason: Headache/Pain, Scale 1-10 Al Hydroxide/Mg Hydroxide (Magnesium Hydrox/Alum Hydrox 30 Ml Oral.Susp) 30 ml PO Q6H PRN PRN Reason: Heartburn/Nausea Albuterol Sulfate (Albuterol Sulfate 90 Mcg 8 Gm Inhaler) 1 puff INHALE QID PRN PRN Reason: asthma Amphetamine/Dextroamphetamine (Dextroamphetamine/Amphetamine Xr 10 Mg Cap.Er.24h) 30 mg PO BID@0830,1330 [facility] Last Admin: 09/12/24 08:54 Dose: 30 mg Benztropine Mesylate (Benztropine Mesylate 1 Mg Tablet) 1 mg PO BID [facility] Last Admin: 09/12/24 08:54 Dose: 1 mg Docusate Sodium (Docusate Sodium 100 Mg Capsule) 100 mg PO BEDTIME PRN PRN Reason: Constipation Escitalopram Oxalate (Escitalopram Oxalate 10 Mg Tablet) 10 mg PO DAILY [facility] Last Admin: 09/12/24 08:55 Dose: 10 mg Fluticasone/Vilanterol (Fluticasone/Vilanterol 200/25 Blst.W.Dev) 1 puff INHALE RDAILY [facility] Last Admin: 09/12/24 08:54 Dose: 1 puff Hydroxyzine HCl (Hydroxyzine Hcl 25 Mg Tablet) 25 mg PO Q6H PRN PRN Reason: mild anxiety Lorazepam (Lorazepam 1 Mg Tablet) 2 mg PO Q6H PRN PRN Reason: anxiety, agitation Last Admin: 09/11/24 20:44 Dose: 2 mg Magnesium Hydroxide (Milk Of Magnesia 30 Ml Oral.Susp) 30 ml PO DAILY PRN PRN Reason: Constipation Methadone HCl (Methadone Hcl 20 Mg/2 Ml Oral.Conc) 135 mg PO DAILY [facility] Last Admin: 09/12/24 07:51 Dose: 135 mg Nicotine (Nicotine 21 Mg Patch.Td24) 21 mg TRANSDERMA DAILY PRN PRN Reason: smoking cessation Last Admin: 09/12/24 08:54 Dose: 21 mg Nicotine Polacrilex (Nicotine Polacrilex 2 Mg Gum) 4 mg BUCCAL Q2H PRN PRN Reason: Nicotine Cravings Last Admin: 09/12/24 08:54 Dose: 4 mg Paliperidone (Paliperidone Er 6 Mg Tab.Er.24) 6 mg PO DAILY [facility] Last Admin: 09/12/24 08:55 Dose: 6 mg Prazosin HCl (Prazosin Hcl 1 Mg Capsule) 2 mg PO DAILY PRN; Protocol PRN Reason: Anxiety Last Admin: 09/09/24 14:08 Dose: 2 mg Prazosin HCl (Prazosin Hcl 1 Mg Capsule) 2 mg PO BEDTIME RISSA; Protocol Last Admin: 09/11/24 20:44 Dose: 2 mg Trazodone HCl (Trazodone Hcl 100 Mg Tablet) 100 mg PO BEDTIME RISSA Last Admin: 09/11/24 20:44 Dose: 100 mg Trazodone HCl (Trazodone Hcl 50 Mg Tablet) 50 mg PO BEDTIME MRX1 PRN PRN Reason: Insomnia Allergies Allergies Allergy/AdvReac Type Severity Reaction Status Date / Time tomato [Tomato] Allergy Severe DIFFICULTY Verified 09/09/24 13:01 BREATHING, swelling of face and throat divalproex sodium Allergy Mild SEIZURES Verified 09/09/24 13:01 [From Depakote] olanzapine [From Zyprexa] Allergy Mild NIPPLES Verified 09/09/24 13:01 LEAK risperidone [From Risperdal] Allergy Mild UNKNOWN Verified 09/09/24 13:01 quetiapine [From SEROQUEL] Allergy Unknown HEART Verified 09/09/24 13:01 PALPITATIONS lithium [[place]] AdvReac Mild STOMACH Verified 09/09/24 13:01 PAIN aripiprazole [From ABILIFY] AdvReac Unknown DYSTONIA Verified 09/09/24 13:01 Assessment & Plan Assessment & Plan (1) Schizoaffective disorder, depressive type: Status: Acute Code(s): F25.1 - Schizoaffective disorder, depressive type (2) Suicidal ideation: Status: Acute Code(s): R45.851 - Suicidal ideations Plan 44-year-old male with history of ADHD, schizoaffective disorder, depressive type and polysubstance use disorder, presented [place] [facility] [place] 09/09/[place]24 from the [facility] recovery program for SI in the setting of medication of medication adjustment. He notes that he was released from detention a month and a half ago. While in detention, his Invega was switched to risperidone which he is allergic to. Reports adverse reactions of increased depression, brain fog/lack of concentration, and agitation to risperidone. It took him 2 weeks to follow-up with the psychiatrist following his released from detention. His psychiatrist discontinued risperidone and started Invega with plan to titrate up to 9 mg daily. He was on Invega 3 mg daily when he started experiencing increased depressive symptoms, brain fog/lack of concentration, agitation, and suicidality. He was brought to the ED by the [facility] recovery program. He reports current SI without a plan. He denies HI. He notes seeing shadows to his peripheral view, and hearing voices that he does not comprehend. He has been taking his medications as prescribed. He denies command hallucinations. He notes that he has been sober from alcohol and illicit drugs since January 2025. His goal is to be stable on Invega. Formulation/Clinical reasoning: Schizoaffective disorder, depressive type: His current symptoms, including suicidality may be attributed to recent medication changes. He currently has suicide ideation without a plan. He is also experiencing visual and auditory hallucinations but seems mild. No, and hallucinations. His Invega was increased from 3 mg daily to 6 mg daily yesterday; will continue to titrate up as needed. Continue current treatment regimen. 09/12: Patient notes that he feels good and holding it together. His sleep is fragmented but feels rested. He reports moderate anxiety and depressive symptoms. He is taking his medications as prescribed. He denies SI/AH/VH. He requests for his Adderall to be change from extended release to immediate release for effectiveness. Adderall changed from XR to IR. Continue current treatment regimen. Plan Admit to M5. CV 15 minutes check. Diagnostics as needed. Collateral contact. Continue remainder of regime. Encouraged full milieu. Discharge planning. Patient educated on: therapeutic strategies Reason for continued inpatient stay Substantial Risk for: rapid decompensation Time Spent With Patient Time: Total time managing care of this patient today ____ minutes.
[2024-09-12] MEDS: Amphetamine Mixed Salts 20 MG TABLET 30 MG PO (14:20)
[2024-09-12 20:00] VITALS: BP 106/66; PULSE 116; RESP 20; TEMP 36.4; O2SAT 95
[2024-09-12] MEDS: traZODone HCL 100 MG TABLET PO (21:37)
[2024-09-12] MEDS: Prazosin HCL 1 MG CAPSULE 2 MG PO (21:37)
[2024-09-12] MEDS: LORazepam 1 MG TABLET 2 MG PO (21:37)
[2024-09-13] MEDS: LORazepam 1 MG TABLET 2 MG PO (06:04)
[2024-09-13] MEDS: methADONE HCl 20 MG/2 ML ORAL.CONC 135 MG PO (07:54)
[2024-09-13 08:00] VITALS: BP 130/78; PULSE 104; RESP 16; TEMP 37; O2SAT 96
[2024-09-13] MEDS: Fluticasone/Vilanterol 200/25 BLST.W.DEV 1 PUFF INHALE (09:16)
[2024-09-13] MEDS: Nicotine 21 MG PATCH.TD24 TRANSDERMA (09:17)
[2024-09-13] MEDS: Escitalopram Oxalate 10 MG TABLET PO (09:18)
[2024-09-13] MEDS: Benztropine Mesylate 1 MG TABLET PO ×2 (09:18→21:48)
[2024-09-13] MEDS: Amphetamine Mixed Salts 20 MG TABLET 30 MG PO ×2 (09:18→13:07)
[2024-09-13] MEDS: Paliperidone ER 6 MG TAB.ER.24 PO (09:18)
[2024-09-13] MEDS: Nicotine Polacrilex 2 MG GUM 4 MG BUCCAL (09:21)
--- NOTE | 2024-09-13 09:51 | HO.PSYCHPN ---
Subjective Subjective Date of Service: 09/13/24 Reason For Visit: SI Interim History: Met with patient; discussed with team; reviewed chart Patient reports he is feeling a little better today; says he was feeling cloudy yesterday and agrees he was a bit confused. Discussed medication regimen and patient agrees to titrate his paliperidone to 9 mg. Says he does not want long-acting Invega Sustenna. Patient was started on Ativan in the ED but agrees to have it lowered to 1 mg daily p.r.n. for severe panic. Patient expressed pride in having remain sober, says it will be year this January. Mental Status Exam Mental Status Exam Narrative: Pt is alert and oriented; behavior is cooperative, friendly and calm; patient is not in distress; dressed in casual attire with adequate hygiene; mood is described as better and affect congruent; eye contact appropriate; Speech is normal rate, volume and prosody and not pressured; no psychomotor agitation/retardation present; thought process is organized and goal directed; Thought content is on tx; otherwise pertinent to relevant topics and without any delusional content, paranoid ideations or grandiosity; denies any SI/HI. Patients insight and judgment appear intact. Diagnostics Vital Signs (24Hr): Vital Signs - 24 hr 09/12/24 20:00 Temperature 97.5 F Pulse Rate 116 H Respiratory Rate 20 Blood Pressure 106/66 Pulse Oximetry 95 Oxygen Delivery Method Room Air BMI result Body Mass Index 33.9 Labs 09/09/24 13:46 09/11/24 08:32 Labs: Laboratory Results - last 48 hr 09/11/24 08:32 Alkaline Phosphatase 84 TSH 1.90 Medications Medications Current Medications Acetaminophen (Acetaminophen 325 Mg Tablet) 650 mg PO Q6H PRN PRN Reason: Headache/Pain, Scale 1-10 Al Hydroxide/Mg Hydroxide (Magnesium Hydrox/Alum Hydrox 30 Ml Oral.Susp) 30 ml PO Q6H PRN PRN Reason: Heartburn/Nausea Albuterol Sulfate (Albuterol Sulfate 90 Mcg 8 Gm Inhaler) 1 puff INHALE QID PRN PRN Reason: asthma Amphetamine/Dextroamphetamine (Amphetamine Mixed Salts 20 Mg Tablet) 30 mg PO BID@0800,1330 [facility] Last Admin: 09/13/24 09:18 Dose: 30 mg Benztropine Mesylate (Benztropine Mesylate 1 Mg Tablet) 1 mg PO BID [facility] Last Admin: 09/13/24 09:18 Dose: 1 mg Docusate Sodium (Docusate Sodium 100 Mg Capsule) 100 mg PO BEDTIME PRN PRN Reason: Constipation Escitalopram Oxalate (Escitalopram Oxalate 10 Mg Tablet) 10 mg PO DAILY [facility] Last Admin: 09/13/24 09:18 Dose: 10 mg Fluticasone/Vilanterol (Fluticasone/Vilanterol 200/25 Blst.W.Dev) 1 puff INHALE RDAILY [facility] Last Admin: 09/13/24 09:16 Dose: 1 puff Hydroxyzine HCl (Hydroxyzine Hcl 25 Mg Tablet) 25 mg PO Q6H PRN PRN Reason: mild anxiety Lorazepam (Lorazepam 1 Mg Tablet) 2 mg PO Q6H PRN PRN Reason: anxiety, agitation Last Admin: 09/13/24 06:04 Dose: 2 mg Magnesium Hydroxide (Milk Of Magnesia 30 Ml Oral.Susp) 30 ml PO DAILY PRN PRN Reason: Constipation Methadone HCl (Methadone Hcl 20 Mg/2 Ml Oral.Conc) 135 mg PO DAILY [facility] Last Admin: 09/13/24 07:54 Dose: 135 mg Nicotine (Nicotine 21 Mg Patch.Td24) 21 mg TRANSDERMA DAILY PRN PRN Reason: smoking cessation Last Admin: 09/13/24 09:17 Dose: 21 mg Nicotine Polacrilex (Nicotine Polacrilex 2 Mg Gum) 4 mg BUCCAL Q2H PRN PRN Reason: Nicotine Cravings Last Admin: 09/13/24 09:21 Dose: 4 mg Paliperidone (Paliperidone Er 6 Mg Tab.Er.24) 6 mg PO DAILY [facility] Last Admin: 09/13/24 09:18 Dose: 6 mg Prazosin HCl (Prazosin Hcl 1 Mg Capsule) 2 mg PO DAILY PRN; Protocol PRN Reason: Anxiety Last Admin: 09/09/24 14:08 Dose: 2 mg Prazosin HCl (Prazosin Hcl 1 Mg Capsule) 2 mg PO BEDTIME [facility]; Protocol Last Admin: 09/12/24 21:37 Dose: 2 mg Trazodone HCl (Trazodone Hcl 100 Mg Tablet) 100 mg PO BEDTIME [facility] Last Admin: 09/12/24 21:37 Dose: 100 mg Allergies Allergies Allergy/AdvReac Type Severity Reaction Status Date / Time tomato [Tomato] Allergy Severe DIFFICULTY Verified 09/09/24 13:01 BREATHING, swelling of face and throat divalproex sodium Allergy Mild SEIZURES Verified 09/09/24 13:01 [From Depakote] olanzapine [From Zyprexa] Allergy Mild NIPPLES Verified 09/09/24 13:01 LEAK risperidone [From Risperdal] Allergy Mild UNKNOWN Verified 09/09/24 13:01 quetiapine [From SEROQUEL] Allergy Unknown HEART Verified 09/09/24 13:01 PALPITATIONS lithium [[place]] AdvReac Mild STOMACH Verified 09/09/24 13:01 PAIN aripiprazole [From ABILIFY] AdvReac Unknown DYSTONIA Verified 09/09/24 13:01 Assessment & Plan Assessment & Plan (1) Schizoaffective disorder, depressive type: Status: Acute Code(s): F25.1 - Schizoaffective disorder, depressive type (2) Suicidal ideation: Status: Acute Code(s): R45.851 - Suicidal ideations Plan 44-year-old male with history of ADHD, schizoaffective disorder, depressive type and polysubstance use disorder, presented to [facility]09[place]24 from [facility] for SI in the setting of medication of medication adjustment. He notes that he was released from [facility] a month and a half ago. While in [facility], his Invega was switched to risperidone which he is allergic to. Reports adverse reactions of increased depression, brain fog/lack of concentration, and agitation to risperidone. It took him 2 weeks to follow-up with the psychiatrist following his released from [facility]. His psychiatrist discontinued risperidone and started Invega with plan to titrate up to 9 mg daily. He was on Invega 3 mg daily when he started experiencing increased depressive symptoms, brain fog/lack of concentration, agitation, and suicidality. He was brought to the ED by the [facility] recovery program. He reports current SI without a plan. He denies HI. He notes seeing shadows to his peripheral view, and hearing voices that he does not comprehend. He has been taking his medications as prescribed. He denies command hallucinations. He notes that he has been sober from alcohol and illicit drugs since January 2025. His goal is to be stable on Invega. He requests for his Adderall to be changed from 20 mg TID to 30 mg AM and PM for effectiveness. Formulation/Clinical reasoning: Schizoaffective disorder, depressive type: His current symptoms, including suicidality may be attributed to recent medication changes. He currently has suicide ideation without a plan. He is also experiencing visual and auditory hallucinations but seems mild. No, and hallucinations. His Invega was increased from 3 mg daily to 6 mg daily yesterday; will continue to titrate up as needed. Adderall change from 20 mg t.i.d. to 30 mg a.m. and p.m. Continue current treatment regimen. Hospital course: 09/13Patient reports he is feeling a little better today; says he was feeling cloudy yesterday and agrees he was a bit confused. Discussed medication regimen and patient agrees to titrate his paliperidone to 9 mg. Says he does not want long-acting Invega Sustenna. Patient was started on Ativan in the ED but agrees to have it lowered to 1 mg daily p.r.n. for severe panic. Patient expressed pride in having remain sober, says it will be year this January. Plan Admit to M5. CV 15 minutes check. Increase paliperidone 9 mg daily Decrease Ativan to 1 mg p.r.n. daily for panic Diagnostics as needed. Collateral contact. Continue remainder of regime. Encouraged full milieu. Discharge planning. Patient educated on: diagnosis, medication risk/benefits and substance abuse Informed Consent: understands Reason for continued inpatient stay Substantial Risk for: rapid decompensation Time Spent With Patient Time: Total time managing care of this patient today ____ minutes.
[2024-09-13 11:04] LABS: Paliperidone 13.9 ng/mL (20.0-60.0)
[2024-09-13] MEDS: Paliperidone ER 3 MG TAB.ER.24 PO (13:06)
[2024-09-13] MEDS: Acetaminophen 325 MG TABLET 650 MG PO (16:04)
[2024-09-13] MEDS: LORazepam 1 MG TABLET PO (16:04)
[2024-09-13 20:00] VITALS: BP 144/81; PULSE 78; TEMP 37.1; O2SAT 91
[2024-09-13 21:47] VITALS: BP 144/81
[2024-09-13] MEDS: Prazosin HCL 1 MG CAPSULE 2 MG PO (21:47)
[2024-09-13] MEDS: traZODone HCL 100 MG TABLET PO (21:48)
[2024-09-14] MEDS: methADONE HCl 20 MG/2 ML ORAL.CONC 135 MG PO (07:48)
[2024-09-14 08:00] VITALS: BP 125/74; PULSE 81; RESP 18; TEMP 36.9; O2SAT 96
[2024-09-14] MEDS: Paliperidone ER 9 MG TAB.ER.24 PO (08:31)
[2024-09-14] MEDS: Amphetamine Mixed Salts 20 MG TABLET 30 MG PO ×2 (08:31→13:29)
[2024-09-14] MEDS: Nicotine 21 MG PATCH.TD24 TRANSDERMA (08:32)
[2024-09-14] MEDS: Escitalopram Oxalate 10 MG TABLET PO (08:32)
[2024-09-14] MEDS: Benztropine Mesylate 1 MG TABLET PO ×2 (08:32→20:55)
[2024-09-14] MEDS: Fluticasone/Vilanterol 200/25 BLST.W.DEV 1 PUFF INHALE (08:33)
[2024-09-14] MEDS: LORazepam 1 MG TABLET PO (10:05)
--- NOTE | 2024-09-14 12:03 | HO.PSYCHPN ---
Subjective Subjective Date of Service: 09/14/24 Reason For Visit: SI Interim History: Patient's case reviewed in treatment team chart reviewed patient seen. Patient reports poor sleep accepting of medication Mental Status Exam Mental Status Exam Narrative: Pt is alert and oriented; behavior is cooperative, friendly and calm; patient is not in distress; dressed in casual attire with adequate hygiene; mood is described as better and affect congruent; eye contact appropriate; Speech is normal rate, volume and prosody and not pressured; no psychomotor agitation/retardation present; thought process is organized and goal directed; Thought content is on tx; otherwise pertinent to relevant topics and without any delusional content, paranoid ideations or grandiosity; denies any SI/HI. Patients insight and judgment appear intact. Diagnostics Vital Signs (24Hr): Vital Signs - 24 hr 09/13/24 20:00 09/13/24 21:47 09/14/24 08:00 Temperature 98.8 F 98.5 F Pulse Rate 78 81 Respiratory Rate 18 Blood Pressure 144/81 H 144/81 H 125/74 Pulse Oximetry 91 L 96 Oxygen Delivery Method Room Air Room Air BMI result Body Mass Index 33.9 Labs 09/09/24 13:46 09/11/24 08:32 Labs: Laboratory Results - last 48 hr 09/09/24 13:46 Paliperidone 13.9 L Medications Medications Current Medications Acetaminophen (Acetaminophen 325 Mg Tablet) 650 mg PO Q6H PRN PRN Reason: Headache/Pain, Scale 1-10 Last Admin: 09/13/24 16:04 Dose: 650 mg Al Hydroxide/Mg Hydroxide (Magnesium Hydrox/Alum Hydrox 30 Ml Oral.Susp) 30 ml PO Q6H PRN PRN Reason: Heartburn/Nausea Albuterol Sulfate (Albuterol Sulfate 90 Mcg 8 Gm Inhaler) 1 puff INHALE QID PRN PRN Reason: asthma Amphetamine/Dextroamphetamine (Amphetamine Mixed Salts 20 Mg Tablet) 30 mg PO BID@0800,1330 [facility] Last Admin: 09/14/24 08:31 Dose: 30 mg Benztropine Mesylate (Benztropine Mesylate 1 Mg Tablet) 1 mg PO BID [facility] Last Admin: 09/14/24 08:32 Dose: 1 mg Docusate Sodium (Docusate Sodium 100 Mg Capsule) 100 mg PO BEDTIME PRN PRN Reason: Constipation Escitalopram Oxalate (Escitalopram Oxalate 10 Mg Tablet) 10 mg PO DAILY [facility] Last Admin: 09/14/24 08:32 Dose: 10 mg Fluticasone/Vilanterol (Fluticasone/Vilanterol 200/25 Blst.W.Dev) 1 puff INHALE RDAILY [facility] Last Admin: 09/14/24 08:33 Dose: 1 puff Hydroxyzine HCl (Hydroxyzine Hcl 25 Mg Tablet) 25 mg PO Q6H PRN PRN Reason: mild anxiety Lorazepam (Lorazepam 1 Mg Tablet) 1 mg PO DAILY PRN PRN Reason: severe anxiety, agitations Last Admin: 09/14/24 10:05 Dose: 1 mg Magnesium Hydroxide (Milk Of Magnesia 30 Ml Oral.Susp) 30 ml PO DAILY PRN PRN Reason: Constipation Methadone HCl (Methadone Hcl 20 Mg/2 Ml Oral.Conc) 135 mg PO DAILY [facility] Last Admin: 09/14/24 07:48 Dose: 135 mg Nicotine (Nicotine 21 Mg Patch.Td24) 21 mg TRANSDERMA DAILY PRN PRN Reason: smoking cessation Last Admin: 09/14/24 08:32 Dose: 21 mg Nicotine Polacrilex (Nicotine Polacrilex 2 Mg Gum) 4 mg BUCCAL Q2H PRN PRN Reason: Nicotine Cravings Last Admin: 09/13/24 09:21 Dose: 4 mg Paliperidone (Paliperidone Er 9 Mg Tab.Er.24) 9 mg PO DAILY [facility] Last Admin: 09/14/24 08:31 Dose: 9 mg Prazosin HCl (Prazosin Hcl 1 Mg Capsule) 2 mg PO DAILY PRN; Protocol PRN Reason: Anxiety Last Admin: 09/09/24 14:08 Dose: 2 mg Prazosin HCl (Prazosin Hcl 1 Mg Capsule) 2 mg PO BEDTIME [facility]; Protocol Last Admin: 09/13/24 21:47 Dose: 2 mg Trazodone HCl (Trazodone Hcl 100 Mg Tablet) 100 mg PO BEDTIME [facility] Last Admin: 09/13/24 21:48 Dose: 100 mg Allergies Allergies Allergy/AdvReac Type Severity Reaction Status Date / Time tomato [Tomato] Allergy Severe DIFFICULTY Verified 09/09/24 13:01 BREATHING, swelling of face and throat divalproex sodium Allergy Mild SEIZURES Verified 09/09/24 13:01 [From Depakote] olanzapine [From Zyprexa] Allergy Mild NIPPLES Verified 09/09/24 13:01 LEAK risperidone [From Risperdal] Allergy Mild UNKNOWN Verified 09/09/24 13:01 quetiapine [From SEROQUEL] Allergy Unknown HEART Verified 09/09/24 13:01 PALPITATIONS lithium [[place]] AdvReac Mild STOMACH Verified 09/09/24 13:01 PAIN aripiprazole [From ABILIFY] AdvReac Unknown DYSTONIA Verified 09/09/24 13:01 Assessment & Plan Assessment & Plan (1) Schizoaffective disorder, depressive type: Status: Acute Code(s): F25.1 - Schizoaffective disorder, depressive type (2) Suicidal ideation: Status: Acute Code(s): R45.851 - Suicidal ideations Plan 44-year-old male with history of ADHD, schizoaffective disorder, depressive type and polysubstance use disorder, [place] [facility] [place] from the [facility] recovery program for SI in the setting of medication of medication adjustment. He notes that he was released from residential a month and a half ago. While in residential, his Invega was switched to risperidone which he is allergic to. Reports adverse reactions of increased depression, brain fog/lack of concentration, and agitation to risperidone. It took him 2 weeks to follow-up with the psychiatrist following his released from residential. His psychiatrist discontinued risperidone and started Invega with plan to titrate up to 9 mg daily. He was on Invega 3 mg daily when he started experiencing increased depressive symptoms, brain fog/lack of concentration, agitation, and suicidality. He was brought to the ED by the [facility] recovery program. He reports current SI without a plan. He denies HI. He notes seeing shadows to his peripheral view, and hearing voices that he does not comprehend. He has been taking his medications as prescribed. He denies command hallucinations. He notes that he has been sober from alcohol and illicit drugs since January 2025. His goal is to be stable on Invega. He requests for his Adderall to be changed from 20 mg TID to 30 mg AM and PM for effectiveness. 09/14/2024 Continue plan of care continue Invega Formulation/Clinical reasoning: Schizoaffective disorder, depressive type: His current symptoms, including suicidality may be attributed to recent medication changes. He currently has suicide ideation without a plan. He is also experiencing visual and auditory hallucinations but seems mild. No, and hallucinations. His Invega was increased from 3 mg daily to 6 mg daily yesterday; will continue to titrate up as needed. Adderall change from 20 mg t.i.d. to 30 mg a.m. and p.m. Continue current treatment regimen. Hospital course: 09/13Patient reports he is feeling a little better today; says he was feeling cloudy yesterday and agrees he was a bit confused. Discussed medication regimen and patient agrees to titrate his paliperidone to 9 mg. Says he does not want long-acting Invega Sustenna. Patient was started on Ativan in the ED but agrees to have it lowered to 1 mg daily p.r.n. for severe panic. Patient expressed pride in having remain sober, says it will be year this January. Plan Admit to M5. CV 15 minutes check. Increase paliperidone 9 mg daily Decrease Ativan to 1 mg p.r.n. daily for panic Diagnostics as needed. Collateral contact. Continue remainder of regime. Encouraged full milieu. Discharge planning. Reason for continued inpatient stay Substantial Risk for: inability to function and rapid decompensation Time Spent With Patient Time: Total time managing care of this patient today ____ minutes.
[2024-09-14 15:23] VITALS: BP 101/66
[2024-09-14] MEDS: Prazosin HCL 1 MG CAPSULE 2 MG PO ×2 (15:23→20:54)
[2024-09-14 19:52] VITALS: BP 141/87; PULSE 94; RESP 15; TEMP 37.1; O2SAT 96
[2024-09-14] MEDS: traZODone HCL 100 MG TABLET PO (20:54)
[2024-09-15] MEDS: methADONE HCl 20 MG/2 ML ORAL.CONC 135 MG PO (07:36)
[2024-09-15 08:00] VITALS: BP 112/71; PULSE 100; RESP 18; TEMP 36.6; O2SAT 98
[2024-09-15] MEDS: Benztropine Mesylate 1 MG TABLET PO ×2 (08:31→20:48)
[2024-09-15] MEDS: Escitalopram Oxalate 10 MG TABLET PO (08:31)
[2024-09-15] MEDS: Amphetamine Mixed Salts 20 MG TABLET 30 MG PO ×2 (08:31→12:54)
[2024-09-15] MEDS: Paliperidone ER 9 MG TAB.ER.24 PO (08:32)
[2024-09-15] MEDS: Fluticasone/Vilanterol 200/25 BLST.W.DEV 1 PUFF INHALE (09:08)
[2024-09-15] MEDS: LORazepam 1 MG TABLET PO (16:31)
[2024-09-15 19:57] VITALS: BP 144/68; PULSE 74; RESP 15; TEMP 36.4; O2SAT 98
[2024-09-15] MEDS: traZODone HCL 100 MG TABLET PO (20:48)
[2024-09-15] MEDS: Prazosin HCL 1 MG CAPSULE 2 MG PO (20:48)
--- NOTE | 2024-09-15 23:12 | HO.PSYCHPN ---
Subjective Subjective Date of Service: 09/15/24 Reason For Visit: SI Interim History: Resting in bed, awake. Colorful shirt, tattood sleeves. Friendly appropriate. Reports mood is good. Still with some AH, much better since being back on Invega. Had been in long-term for a month, they switched his Invega to po Risperdal (*which is actually on his allergy med) Once he got out, saw his provider who switched him back to Invega, slowly recovering. Med compliant. Denies any SI. No health issues, denies any complaints. Sleep also slowly improving. Review of Systems Review of Systems Constitutional: No fever, chills, fatigue, night sweats, weight changes ENT/Mouth: No ear pain, hearing loss, nasal congestion, sinus pain, rhinorrhea, sore throat Eyes: No eye pain, swelling, redness, vision changes, discharge Cardio: No chest pain, palpitations, GUZMAN, orthopnea, peripheral edema Pulm: No SOB, cough, sputum, wheezing, dyspnea, hemoptysis GI: No nausea, vomiting, hematemesis, abdominal pain, diarrhea, constipation, hematochezia, melena : No irregular bleeding, dysuria, frequency, urgency, hesitancy, hematuria, flank pain, urinary flow changes, urinary incontinence or retention MSK: No back pain, neck pain, joint pain, myalgias Skin: No lesions, rashes Neuro: No weakness, numbness, paresthesias, LOC, dizziness, headache Psych: No anxiety/panic, depression, HI +SI, +AH/VH All other systems reviewed and are negative. Yes all other systems are reviewed and are negative Mental Status Exam Mental Status Exam Narrative: Pt is alert and oriented; behavior is cooperative, friendly and calm; patient is not in distress; dressed in casual attire with adequate hygiene; mood is described as better and affect congruent; eye contact appropriate; Speech is normal rate, volume and prosody and not pressured; no psychomotor agitation/retardation present; thought process is organized and goal directed; Thought content is on tx; otherwise pertinent to relevant topics and without any delusional content, paranoid ideations or grandiosity; denies any SI/HI. Patients insight and judgment appear intact. Diagnostics Vital Signs (24Hr): Vital Signs - 24 hr 09/15/24 08:00 09/15/24 19:57 Temperature 97.8 F 97.5 F Pulse Rate 100 74 Respiratory Rate 18 15 Blood Pressure 112/71 144/68 H Pulse Oximetry 98 98 Oxygen Delivery Method Room Air BMI result Body Mass Index 33.9 Labs 09/09/24 13:46 09/11/24 08:32 Medications Medications Current Medications Acetaminophen (Acetaminophen 325 Mg Tablet) 650 mg PO Q6H PRN PRN Reason: Headache/Pain, Scale 1-10 Last Admin: 09/13/24 16:04 Dose: 650 mg Al Hydroxide/Mg Hydroxide (Magnesium Hydrox/Alum Hydrox 30 Ml Oral.Susp) 30 ml PO Q6H PRN PRN Reason: Heartburn/Nausea Albuterol Sulfate (Albuterol Sulfate 90 Mcg 8 Gm Inhaler) 1 puff INHALE QID PRN PRN Reason: asthma Amphetamine/Dextroamphetamine (Amphetamine Mixed Salts 20 Mg Tablet) 30 mg PO BID@0800,1330 [facility] Last Admin: 09/15/24 12:54 Dose: 30 mg Benztropine Mesylate (Benztropine Mesylate 1 Mg Tablet) 1 mg PO BID [facility] Last Admin: 09/15/24 20:48 Dose: 1 mg Docusate Sodium (Docusate Sodium 100 Mg Capsule) 100 mg PO BEDTIME PRN PRN Reason: Constipation Escitalopram Oxalate (Escitalopram Oxalate 10 Mg Tablet) 10 mg PO DAILY [facility] Last Admin: 09/15/24 08:31 Dose: 10 mg Fluticasone/Vilanterol (Fluticasone/Vilanterol 200/25 Blst.W.Dev) 1 puff INHALE RDAILY [facility] Last Admin: 09/15/24 09:08 Dose: 1 puff Hydroxyzine HCl (Hydroxyzine Hcl 25 Mg Tablet) 25 mg PO Q6H PRN PRN Reason: mild anxiety Lorazepam (Lorazepam 1 Mg Tablet) 1 mg PO DAILY PRN PRN Reason: severe anxiety, agitations Last Admin: 09/15/24 16:31 Dose: 1 mg Magnesium Hydroxide (Milk Of Magnesia 30 Ml Oral.Susp) 30 ml PO DAILY PRN PRN Reason: Constipation Methadone HCl (Methadone Hcl 20 Mg/2 Ml Oral.Conc) 135 mg PO DAILY [facility] Last Admin: 09/15/24 07:36 Dose: 135 mg Nicotine (Nicotine 21 Mg Patch.Td24) 21 mg TRANSDERMA DAILY PRN PRN Reason: smoking cessation Last Admin: 09/14/24 08:32 Dose: 21 mg Nicotine Polacrilex (Nicotine Polacrilex 2 Mg Gum) 4 mg BUCCAL Q2H PRN PRN Reason: Nicotine Cravings Last Admin: 09/13/24 09:21 Dose: 4 mg Paliperidone (Paliperidone Er 9 Mg Tab.Er.24) 9 mg PO DAILY [facility] Last Admin: 09/15/24 08:32 Dose: 9 mg Prazosin HCl (Prazosin Hcl 1 Mg Capsule) 2 mg PO DAILY PRN; Protocol PRN Reason: Anxiety Last Admin: 09/14/24 15:23 Dose: 2 mg Prazosin HCl (Prazosin Hcl 1 Mg Capsule) 2 mg PO BEDTIME [facility]; Protocol Last Admin: 09/15/24 20:48 Dose: 2 mg Trazodone HCl (Trazodone Hcl 100 Mg Tablet) 100 mg PO BEDTIME [facility] Last Admin: 09/15/24 20:48 Dose: 100 mg Allergies Allergies Allergy/AdvReac Type Severity Reaction Status Date / Time tomato [Tomato] Allergy Severe DIFFICULTY Verified 09/09/24 13:01 BREATHING, swelling of face and throat divalproex sodium Allergy Mild SEIZURES Verified 09/09/24 13:01 [From Depakote] olanzapine [From Zyprexa] Allergy Mild NIPPLES Verified 09/09/24 13:01 LEAK risperidone [From Risperdal] Allergy Mild UNKNOWN Verified 09/09/24 13:01 quetiapine [From SEROQUEL] Allergy Unknown HEART Verified 09/09/24 13:01 PALPITATIONS lithium [[place]] AdvReac Mild STOMACH Verified 09/09/24 13:01 PAIN aripiprazole [From ABILIFY] AdvReac Unknown DYSTONIA Verified 09/09/24 13:01 Assessment & Plan Assessment & Plan (1) Schizoaffective disorder, depressive type: Status: Acute Code(s): F25.1 - Schizoaffective disorder, depressive type (2) Suicidal ideation: Status: Acute Code(s): R45.851 - Suicidal ideations Plan 44-year-old male with history of ADHD, schizoaffective disorder, depressive type and polysubstance use disorder, presented to [facility] [place] [facility] on 09/09/2024 from the [facility] recovery program for SI in the setting of medication of medication adjustment. He notes that he was released from long-term a month and a half ago. While in long-term, his Invega was switched to risperidone which he is allergic to. Reports adverse reactions of increased depression, brain fog/lack of concentration, and agitation to risperidone. It took him 2 weeks to follow-up with the psychiatrist following his released from long-term. His psychiatrist discontinued risperidone and started Invega with plan to titrate up to 9 mg daily. He was on Invega 3 mg daily when he started experiencing increased depressive symptoms, brain fog/lack of concentration, agitation, and suicidality. He was brought to the ED by the [facility] recovery program. He reports current SI without a plan. He denies HI. He notes seeing shadows to his peripheral view, and hearing voices that he does not comprehend. He has been taking his medications as prescribed. He denies command hallucinations. He notes that he has been sober from alcohol and illicit drugs since January 2025. His goal is to be stable on Invega. He requests for his Adderall to be changed from 20 mg TID to 30 mg AM and PM for effectiveness. 09/14/2024 Continue plan of care continue Invega Formulation/Clinical reasoning: Schizoaffective disorder, depressive type: His current symptoms, including suicidality may be attributed to recent medication changes. He currently has suicide ideation without a plan. He is also experiencing visual and auditory hallucinations but seems mild. No, and hallucinations. His Invega was increased from 3 mg daily to 6 mg daily yesterday; will continue to titrate up as needed. Adderall change from 20 mg t.i.d. to 30 mg a.m. and p.m. Continue current treatment regimen. Hospital course: 09/13Patient reports he is feeling a little better today; says he was feeling cloudy yesterday and agrees he was a bit confused. Discussed medication regimen and patient agrees to titrate his paliperidone to 9 mg. Says he does not want long-acting Invega Sustenna. Patient was started on Ativan in the ED but agrees to have it lowered to 1 mg daily p.r.n. for severe panic. Patient expressed pride in having remain sober, says it will be year january. 09/15 cont treatment Plan Admit to M5. CV 15 minutes check. Increase paliperidone 9 mg daily Decrease Ativan to 1 mg p.r.n. daily for panic Diagnostics as needed. Collateral contact. Continue remainder of regime. Encouraged full milieu. Discharge planning. Reason for continued inpatient stay Substantial Risk for: med/psych decompensation Time Spent With Patient Time: Total time managing care of this patient today ____ minutes.
[2024-09-16] MEDS: methADONE HCl 20 MG/2 ML ORAL.CONC 135 MG PO (07:39)
[2024-09-16 07:49] VITALS: BP 104/66; PULSE 101; RESP 18; TEMP 36.3; O2SAT 95
[2024-09-16] MEDS: Paliperidone ER 9 MG TAB.ER.24 PO (08:14)
[2024-09-16] MEDS: Escitalopram Oxalate 10 MG TABLET PO (08:15)
[2024-09-16] MEDS: Amphetamine Mixed Salts 20 MG TABLET 30 MG PO ×2 (08:15→12:58)
[2024-09-16] MEDS: Benztropine Mesylate 1 MG TABLET PO ×2 (08:15→23:30)
[2024-09-16] MEDS: Nicotine 21 MG PATCH.TD24 TRANSDERMA (08:16)
[2024-09-16] MEDS: Fluticasone/Vilanterol 200/25 BLST.W.DEV 1 PUFF INHALE (08:26)
--- NOTE | 2024-09-16 09:51 | HO.PSYCHPN ---
Subjective Subjective Date of Service: 09/16/24 Reason For Visit: SI Interim History: met with patient; discussed with team Patient reports that he is doing well and remains in better mood. Still has auditory hallucinations but they are minimal and able to be ignored. Discussed clonazepam and agrees to keep it at 1 mg daily p.r.n.. Patient sometimes sees shadow figures but says that this and AH are both part of his baseline. Discussed discharge. Mental Status Exam Mental Status Exam Narrative: Pt is alert and oriented; behavior is cooperative, friendly and calm; patient is not in distress; dressed in casual attire with adequate hygiene; mood is described as good and affect congruent; eye contact appropriate; Speech is normal rate, volume and prosody and not pressured; no psychomotor agitation/retardation present; thought process is organized and goal directed; Thought content is on tx; otherwise pertinent to relevant topics and without any delusional content, paranoid ideations or grandiosity; AH but minimal; VH but not disturbing denies any SI/HI. Patients insight and judgment appear intact. Diagnostics Vital Signs (24Hr): Vital Signs - 24 hr 09/15/24 19:57 09/16/24 07:49 Temperature 97.5 F 97.3 F Pulse Rate 74 101 H Respiratory Rate 15 18 Blood Pressure 144/68 H 104/66 Pulse Oximetry 98 95 Oxygen Delivery Method Room Air BMI result Body Mass Index 33.9 Labs 09/09/24 13:46 09/11/24 08:32 Medications Medications Current Medications Acetaminophen (Acetaminophen 325 Mg Tablet) 650 mg PO Q6H PRN PRN Reason: Headache/Pain, Scale 1-10 Last Admin: 09/13/24 16:04 Dose: 650 mg Al Hydroxide/Mg Hydroxide (Magnesium Hydrox/Alum Hydrox 30 Ml Oral.Susp) 30 ml PO Q6H PRN PRN Reason: Heartburn/Nausea Albuterol Sulfate (Albuterol Sulfate 90 Mcg 8 Gm Inhaler) 1 puff INHALE QID PRN PRN Reason: asthma Amphetamine/Dextroamphetamine (Amphetamine Mixed Salts 20 Mg Tablet) 30 mg PO BID@0800,1330 [facility] Last Admin: 09/16/24 08:15 Dose: 30 mg Benztropine Mesylate (Benztropine Mesylate 1 Mg Tablet) 1 mg PO BID [facility] Last Admin: 09/16/24 08:15 Dose: 1 mg Docusate Sodium (Docusate Sodium 100 Mg Capsule) 100 mg PO BEDTIME PRN PRN Reason: Constipation Escitalopram Oxalate (Escitalopram Oxalate 10 Mg Tablet) 10 mg PO DAILY [facility] Last Admin: 09/16/24 08:15 Dose: 10 mg Fluticasone/Vilanterol (Fluticasone/Vilanterol 200/25 Blst.W.Dev) 1 puff INHALE RDAILY [facility] Last Admin: 09/16/24 08:26 Dose: 1 puff Hydroxyzine HCl (Hydroxyzine Hcl 25 Mg Tablet) 25 mg PO Q6H PRN PRN Reason: mild anxiety Lorazepam (Lorazepam 1 Mg Tablet) 1 mg PO DAILY PRN PRN Reason: severe anxiety, agitations Last Admin: 09/15/24 16:31 Dose: 1 mg Magnesium Hydroxide (Milk Of Magnesia 30 Ml Oral.Susp) 30 ml PO DAILY PRN PRN Reason: Constipation Methadone HCl (Methadone Hcl 20 Mg/2 Ml Oral.Conc) 135 mg PO DAILY [facility] Last Admin: 09/16/24 07:39 Dose: 135 mg Nicotine (Nicotine 21 Mg Patch.Td24) 21 mg TRANSDERMA DAILY PRN PRN Reason: smoking cessation Last Admin: 09/16/24 08:16 Dose: 21 mg Nicotine Polacrilex (Nicotine Polacrilex 2 Mg Gum) 4 mg BUCCAL Q2H PRN PRN Reason: Nicotine Cravings Last Admin: 09/13/24 09:21 Dose: 4 mg Paliperidone (Paliperidone Er 9 Mg Tab.Er.24) 9 mg PO DAILY [facility] Last Admin: 09/16/24 08:14 Dose: 9 mg Prazosin HCl (Prazosin Hcl 1 Mg Capsule) 2 mg PO DAILY PRN; Protocol PRN Reason: Anxiety Last Admin: 09/14/24 15:23 Dose: 2 mg Prazosin HCl (Prazosin Hcl 1 Mg Capsule) 2 mg PO BEDTIME [facility]; Protocol Last Admin: 09/15/24 20:48 Dose: 2 mg Trazodone HCl (Trazodone Hcl 100 Mg Tablet) 100 mg PO BEDTIME [facility] Last Admin: 09/15/24 20:48 Dose: 100 mg Allergies Allergies Allergy/AdvReac Type Severity Reaction Status Date / Time tomato [Tomato] Allergy Severe DIFFICULTY Verified 09/09/24 13:01 BREATHING, swelling of face and throat divalproex sodium Allergy Mild SEIZURES Verified 09/09/24 13:01 [From Depakote] olanzapine [From Zyprexa] Allergy Mild NIPPLES Verified 09/09/24 13:01 LEAK risperidone [From Risperdal] Allergy Mild UNKNOWN Verified 09/09/24 13:01 quetiapine [From SEROQUEL] Allergy Unknown HEART Verified 09/09/24 13:01 PALPITATIONS lithium [[place]] AdvReac Mild STOMACH Verified 09/09/24 13:01 PAIN aripiprazole [From ABILIFY] AdvReac Unknown DYSTONIA Verified 09/09/24 13:01 Assessment & Plan Assessment & Plan (1) Schizoaffective disorder, depressive type: Status: Acute Code(s): F25.1 - Schizoaffective disorder, depressive type (2) Suicidal ideation: Status: Acute Code(s): R45.851 - Suicidal ideations Plan 44-year-old male with history of ADHD, schizoaffective disorder, depressive type and polysubstance use disorder, presented to [facility] ED on 09/09/2024 from the [facility] recovery program for SI in the setting of medication of medication adjustment. He notes that he was released from [facility] a month and a half ago. While in [facility], his Invega was switched to risperidone which he is allergic to. Reports adverse reactions of increased depression, brain fog/lack of concentration, and agitation to risperidone. It took him 2 weeks to follow-up with the psychiatrist following his released from [facility]. His psychiatrist discontinued risperidone and started Invega with plan to titrate up to 9 mg daily. He was on Invega 3 mg daily when he started experiencing increased depressive symptoms, brain fog/lack of concentration, agitation, and suicidality. He was brought to [facility] ED by the [facility]. He reports current SI without a plan. He denies HI. He notes seeing shadows to his peripheral view, and hearing voices that he does not comprehend. He has been taking his medications as prescribed. He denies command hallucinations. He notes that he has been sober from alcohol and illicit drugs since January 2025. His goal is to be stable on Invega. He requests for his Adderall to be changed from 20 mg TID to 30 mg AM and PM for effectiveness. 09/14/2024 Continue plan of care continue Invega Formulation/Clinical reasoning: Schizoaffective disorder, depressive type: His current symptoms, including suicidality may be attributed to recent medication changes. He currently has suicide ideation without a plan. He is also experiencing visual and auditory hallucinations but seems mild. No, and hallucinations. His Invega was increased from 3 mg daily to 6 mg daily yesterday; will continue to titrate up as needed. Adderall change from 20 mg t.i.d. to 30 mg a.m. and p.m. Continue current treatment regimen. Hospital course: 09/13Patient reports he is feeling a little better today; says he was feeling cloudy yesterday and agrees he was a bit confused. Discussed medication regimen and patient agrees to titrate his paliperidone to 9 mg. Says he does not want long-acting Invega Sustenna. Patient was started on Ativan in the ED but agrees to have it lowered to 1 mg daily p.r.n. for severe panic. Patient expressed pride in having remain sober, says it will be year january. 09/15 cont treatment 09/16 Patient reports that he is doing well and remains in better mood. Still has auditory hallucinations but they are minimal and able to be ignored. Discussed clonazepam and agrees to keep it at 1 mg daily p.r.n.. Patient sometimes sees shadow figures but says that this and AH are both part of his baseline. Discussed discharge. -at this point continue with dispo planning; patient has remained sober for 8 months and successful disposition will help him remain stable Plan Admit to M5. CV 15 minutes check. Increase paliperidone 9 mg daily Decrease Ativan to 1 mg p.r.n. daily for panic Diagnostics as needed. Collateral contact. Continue remainder of regime. Encouraged full milieu. Discharge planning. Patient educated on: diagnosis, medication risk/benefits, substance abuse and therapeutic strategies Informed Consent: understands Reason for continued inpatient stay Substantial Risk for: stable for discharge Time Spent With Patient Time: Total time managing care of this patient today ____ minutes.
[2024-09-16] MEDS: LORazepam 1 MG TABLET PO (10:39)
[2024-09-16 19:54] VITALS: BP 139/89; PULSE 94; RESP 16; TEMP 36.9; O2SAT 98
[2024-09-16] MEDS: Prazosin HCL 1 MG CAPSULE 2 MG PO (23:29)
[2024-09-16] MEDS: traZODone HCL 100 MG TABLET PO (23:30)
[2024-09-17] MEDS: LORazepam 1 MG TABLET PO (07:08)
[2024-09-17] MEDS: methADONE HCl 20 MG/2 ML ORAL.CONC 135 MG PO (07:44)
[2024-09-17 08:00] VITALS: BP 125/84; PULSE 100; RESP 17; TEMP 36.6; O2SAT 98
[2024-09-17] MEDS: Amphetamine Mixed Salts 20 MG TABLET 30 MG PO ×2 (08:34→12:35)
[2024-09-17] MEDS: Paliperidone ER 9 MG TAB.ER.24 PO (08:34)
[2024-09-17] MEDS: Escitalopram Oxalate 10 MG TABLET PO (08:35)
[2024-09-17] MEDS: Benztropine Mesylate 1 MG TABLET PO ×2 (08:35→20:59)
[2024-09-17] MEDS: Nicotine 21 MG PATCH.TD24 TRANSDERMA (09:02)
[2024-09-17] MEDS: Fluticasone/Vilanterol 200/25 BLST.W.DEV 1 PUFF INHALE (12:34)
--- NOTE | 2024-09-17 14:55 | HO.PSYCHPN ---
Subjective Subjective Date of Service: 09/17/24 Reason For Visit: SI Interim History: Met with patient; discussed with team Patient reports he continues to do well, good mood, looking forward to discharge. No complaints, no request. AH/VH not bothersome. Mental Status Exam Mental Status Exam Narrative: Pt is alert and oriented; behavior is cooperative, friendly and calm; patient is not in distress; dressed in casual attire with adequate hygiene; mood is described as good and affect congruent; eye contact appropriate; Speech is normal rate, volume and prosody and not pressured; no psychomotor agitation/retardation present; thought process is organized and goal directed; Thought content is on tx; otherwise pertinent to relevant topics and without any delusional content, paranoid ideations or grandiosity; AH but minimal; VH but not disturbing denies any SI/HI. Patients insight and judgment appear intact. Diagnostics Vital Signs (24Hr): Vital Signs - 24 hr 09/16/24 19:54 09/17/24 08:00 Temperature 98.5 F 97.8 F Pulse Rate 94 100 Respiratory Rate 16 17 Blood Pressure 139/89 125/84 Pulse Oximetry 98 98 Oxygen Delivery Method Room Air Room Air BMI result Body Mass Index 33.9 Labs 09/09/24 13:46 09/11/24 08:32 Medications Medications Current Medications Acetaminophen (Acetaminophen 325 Mg Tablet) 650 mg PO Q6H PRN PRN Reason: Headache/Pain, Scale 1-10 Last Admin: 09/13/24 16:04 Dose: 650 mg Al Hydroxide/Mg Hydroxide (Magnesium Hydrox/Alum Hydrox 30 Ml Oral.Susp) 30 ml PO Q6H PRN PRN Reason: Heartburn/Nausea Albuterol Sulfate (Albuterol Sulfate 90 Mcg 8 Gm Inhaler) 1 puff INHALE QID PRN PRN Reason: asthma Amphetamine/Dextroamphetamine (Amphetamine Mixed Salts 20 Mg Tablet) 30 mg PO BID@0800,1330 [facility] Last Admin: 09/17/24 12:35 Dose: 30 mg Benztropine Mesylate (Benztropine Mesylate 1 Mg Tablet) 1 mg PO BID [facility] Last Admin: 09/17/24 08:35 Dose: 1 mg Docusate Sodium (Docusate Sodium 100 Mg Capsule) 100 mg PO BEDTIME PRN PRN Reason: Constipation Escitalopram Oxalate (Escitalopram Oxalate 10 Mg Tablet) 10 mg PO DAILY [facility] Last Admin: 09/17/24 08:35 Dose: 10 mg Fluticasone/Vilanterol (Fluticasone/Vilanterol 200/25 Blst.W.Dev) 1 puff INHALE RDAILY [facility] Last Admin: 09/17/24 12:34 Dose: 1 puff Hydroxyzine HCl (Hydroxyzine Hcl 25 Mg Tablet) 25 mg PO Q6H PRN PRN Reason: mild anxiety Lorazepam (Lorazepam 1 Mg Tablet) 1 mg PO DAILY PRN PRN Reason: severe anxiety, agitations Last Admin: 09/17/24 07:08 Dose: 1 mg Magnesium Hydroxide (Milk Of Magnesia 30 Ml Oral.Susp) 30 ml PO DAILY PRN PRN Reason: Constipation Methadone HCl (Methadone Hcl 20 Mg/2 Ml Oral.Conc) 135 mg PO DAILY [facility] Last Admin: 09/17/24 07:44 Dose: 135 mg Nicotine (Nicotine 21 Mg Patch.Td24) 21 mg TRANSDERMA DAILY PRN PRN Reason: smoking cessation Last Admin: 09/17/24 09:02 Dose: 21 mg Nicotine Polacrilex (Nicotine Polacrilex 2 Mg Gum) 4 mg BUCCAL Q2H PRN PRN Reason: Nicotine Cravings Last Admin: 09/13/24 09:21 Dose: 4 mg Paliperidone (Paliperidone Er 9 Mg Tab.Er.24) 9 mg PO DAILY [facility] Last Admin: 09/17/24 08:34 Dose: 9 mg Prazosin HCl (Prazosin Hcl 1 Mg Capsule) 2 mg PO DAILY PRN; Protocol PRN Reason: Anxiety Last Admin: 09/14/24 15:23 Dose: 2 mg Prazosin HCl (Prazosin Hcl 1 Mg Capsule) 2 mg PO BEDTIME [facility]; Protocol Last Admin: 09/16/24 23:29 Dose: 2 mg Trazodone HCl (Trazodone Hcl 100 Mg Tablet) 100 mg PO BEDTIME [facility] Last Admin: 09/16/24 23:30 Dose: 100 mg Allergies Allergies Allergy/AdvReac Type Severity Reaction Status Date / Time tomato [Tomato] Allergy Severe DIFFICULTY Verified 09/09/24 13:01 BREATHING, swelling of face and throat divalproex sodium Allergy Mild SEIZURES Verified 09/09/24 13:01 [From Depakote] olanzapine [From Zyprexa] Allergy Mild NIPPLES Verified 09/09/24 13:01 LEAK risperidone [From Risperdal] Allergy Mild UNKNOWN Verified 09/09/24 13:01 quetiapine [From SEROQUEL] Allergy Unknown HEART Verified 09/09/24 13:01 PALPITATIONS lithium [[place]] AdvReac Mild STOMACH Verified 09/09/24 13:01 PAIN aripiprazole [From ABILIFY] AdvReac Unknown DYSTONIA Verified 09/09/24 13:01 Assessment & Plan Assessment & Plan (1) Schizoaffective disorder, depressive type: Status: Acute Code(s): F25.1 - Schizoaffective disorder, depressive type (2) Suicidal ideation: Status: Acute Code(s): R45.851 - Suicidal ideations Plan 44-year-old male with history of ADHD, schizoaffective disorder, depressive type and polysubstance use disorder, presented to [facility] on 09/09/2024 from the [facility] recovery program for SI in the setting of medication of medication adjustment. He notes that he was released from longterm a month and a half ago. While in longterm, his Invega was switched to risperidone which he is allergic to. Reports adverse reactions of increased depression, brain fog/lack of concentration, and agitation to risperidone. It took him 2 weeks to follow-up with the psychiatrist following his released from longterm. His psychiatrist discontinued risperidone and started Invega with plan to titrate up to 9 mg daily. He was on Invega 3 mg daily when he started experiencing increased depressive symptoms, brain fog/lack of concentration, agitation, and suicidality. He was brought to the ED by the [facility] recovery program. He reports current SI without a plan. He denies HI. He notes seeing shadows to his peripheral view, and hearing voices that he does not comprehend. He has been taking his medications as prescribed. He denies command hallucinations. He notes that he has been sober from alcohol and illicit drugs since January 2025. His goal is to be stable on Invega. He requests for his Adderall to be changed from 20 mg TID to 30 mg AM and PM for effectiveness. 09/14/2024 Continue plan of care continue Invega Formulation/Clinical reasoning: Schizoaffective disorder, depressive type: His current symptoms, including suicidality may be attributed to recent medication changes. He currently has suicide ideation without a plan. He is also experiencing visual and auditory hallucinations but seems mild. No, and hallucinations. His Invega was increased from 3 mg daily to 6 mg daily yesterday; will continue to titrate up as needed. Adderall change from 20 mg t.i.d. to 30 mg a.m. and p.m. Continue current treatment regimen. Hospital course: 09/13Patient reports he is feeling a little better today; says he was feeling cloudy yesterday and agrees he was a bit confused. Discussed medication regimen and patient agrees to titrate his paliperidone to 9 mg. Says he does not want long-acting Invega Sustenna. Patient was started on Ativan in the ED but agrees to have it lowered to 1 mg daily p.r.n. for severe panic. Patient expressed pride in having remain sober, says it will be year this January. 09/15 cont treatment 09/16 Patient reports that he is doing well and remains in better mood. Still has auditory hallucinations but they are minimal and able to be ignored. Discussed clonazepam and agrees to keep it at 1 mg daily p.r.n.. Patient sometimes sees shadow figures but says that this and AH are both part of his baseline. Discussed discharge. -at this point continue with dispo planning; patient has remained sober for 8 months and successful disposition will help him remain stable 09/17 continue current treatment plan Plan Admit to M5. CV 15 minutes check. Continue paliperidone 9 mg daily Decrease Ativan to 1 mg p.r.n. daily for panic Diagnostics as needed. Collateral contact. Continue remainder of regime. Encouraged full milieu. Discharge planning. Patient educated on: diagnosis Informed Consent: understands Reason for continued inpatient stay Substantial Risk for: stable for discharge Time Spent With Patient Time: Total time managing care of this patient today ____ minutes.
[2024-09-17 20:00] VITALS: BP 141/73; PULSE 91; TEMP 36.9; O2SAT 96
[2024-09-17] MEDS: traZODone HCL 100 MG TABLET PO (20:59)
[2024-09-17] MEDS: Prazosin HCL 1 MG CAPSULE 2 MG PO (21:00)
[2024-09-18] MEDS: methADONE HCl 20 MG/2 ML ORAL.CONC 135 MG PO (07:42)
[2024-09-18 08:00] VITALS: BP 111/58; PULSE 96; RESP 16; TEMP 36.3; O2SAT 96
[2024-09-18] MEDS: Amphetamine Mixed Salts 20 MG TABLET 30 MG PO ×2 (08:08→12:33)
[2024-09-18] MEDS: Paliperidone ER 9 MG TAB.ER.24 PO (08:08)
[2024-09-18] MEDS: Benztropine Mesylate 1 MG TABLET PO ×2 (08:09→20:54)
[2024-09-18] MEDS: Fluticasone/Vilanterol 200/25 BLST.W.DEV 1 PUFF INHALE (08:09)
[2024-09-18] MEDS: Escitalopram Oxalate 10 MG TABLET PO (08:09)
--- NOTE | 2024-09-18 10:06 | HO.PSYCHPN ---
Subjective Subjective Date of Service: 09/18/24 Reason For Visit: SI Interim History: Met with patient; discussed with team Patient reports doing well, feels good, ready for discharge; discussed disposition plans Mental Status Exam Mental Status Exam Narrative: Pt is alert and oriented; behavior is cooperative, friendly and calm; patient is not in distress; dressed in casual attire with adequate hygiene; mood is described as good and affect congruent; eye contact appropriate; Speech is normal rate, volume and prosody and not pressured; no psychomotor agitation/retardation present; thought process is organized and goal directed; Thought content is on tx; otherwise pertinent to relevant topics and without any delusional content, paranoid ideations or grandiosity; AH but minimal; VH but not disturbing denies any SI/HI. Patients insight and judgment appear intact. Diagnostics Vital Signs (24Hr): Vital Signs - 24 hr 09/17/24 20:00 09/18/24 08:00 Temperature 98.4 F 97.3 F Pulse Rate 91 96 Respiratory Rate 16 Blood Pressure 141/73 H 111/58 L Pulse Oximetry 96 96 Oxygen Delivery Method Room Air Room Air BMI result Body Mass Index 33.9 Labs 09/09/24 13:46 09/11/24 08:32 Medications Medications Current Medications Acetaminophen (Acetaminophen 325 Mg Tablet) 650 mg PO Q6H PRN PRN Reason: Headache/Pain, Scale 1-10 Last Admin: 09/13/24 16:04 Dose: 650 mg Al Hydroxide/Mg Hydroxide (Magnesium Hydrox/Alum Hydrox 30 Ml Oral.Susp) 30 ml PO Q6H PRN PRN Reason: Heartburn/Nausea Albuterol Sulfate (Albuterol Sulfate 90 Mcg 8 Gm Inhaler) 1 puff INHALE QID PRN PRN Reason: asthma Amphetamine/Dextroamphetamine (Amphetamine Mixed Salts 20 Mg Tablet) 30 mg PO BID@0800,1330 [facility] Last Admin: 09/18/24 08:08 Dose: 30 mg Benztropine Mesylate (Benztropine Mesylate 1 Mg Tablet) 1 mg PO BID [facility] Last Admin: 09/18/24 08:09 Dose: 1 mg Docusate Sodium (Docusate Sodium 100 Mg Capsule) 100 mg PO BEDTIME PRN PRN Reason: Constipation Escitalopram Oxalate (Escitalopram Oxalate 10 Mg Tablet) 10 mg PO DAILY [facility] Last Admin: 09/18/24 08:09 Dose: 10 mg Fluticasone/Vilanterol (Fluticasone/Vilanterol 200/25 Blst.W.Dev) 1 puff INHALE RDAILY [facility] Last Admin: 09/18/24 08:09 Dose: 1 puff Hydroxyzine HCl (Hydroxyzine Hcl 25 Mg Tablet) 25 mg PO Q6H PRN PRN Reason: mild anxiety Lorazepam (Lorazepam 1 Mg Tablet) 1 mg PO DAILY PRN PRN Reason: severe anxiety, agitations Last Admin: 09/17/24 07:08 Dose: 1 mg Magnesium Hydroxide (Milk Of Magnesia 30 Ml Oral.Susp) 30 ml PO DAILY PRN PRN Reason: Constipation Methadone HCl (Methadone Hcl 20 Mg/2 Ml Oral.Conc) 135 mg PO DAILY [facility] Last Admin: 09/18/24 07:42 Dose: 135 mg Nicotine (Nicotine 21 Mg Patch.Td24) 21 mg TRANSDERMA DAILY PRN PRN Reason: smoking cessation Last Admin: 09/17/24 09:02 Dose: 21 mg Nicotine Polacrilex (Nicotine Polacrilex 2 Mg Gum) 4 mg BUCCAL Q2H PRN PRN Reason: Nicotine Cravings Last Admin: 09/13/24 09:21 Dose: 4 mg Paliperidone (Paliperidone Er 9 Mg Tab.Er.24) 9 mg PO DAILY [facility] Last Admin: 09/18/24 08:08 Dose: 9 mg Prazosin HCl (Prazosin Hcl 1 Mg Capsule) 2 mg PO DAILY PRN; Protocol PRN Reason: Anxiety Last Admin: 09/14/24 15:23 Dose: 2 mg Prazosin HCl (Prazosin Hcl 1 Mg Capsule) 2 mg PO BEDTIME [facility]; Protocol Last Admin: 09/17/24 21:00 Dose: 2 mg Trazodone HCl (Trazodone Hcl 100 Mg Tablet) 100 mg PO BEDTIME [facility] Last Admin: 09/17/24 20:59 Dose: 100 mg Allergies Allergies Allergy/AdvReac Type Severity Reaction Status Date / Time tomato [Tomato] Allergy Severe DIFFICULTY Verified 09/09/24 13:01 BREATHING, swelling of face and throat divalproex sodium Allergy Mild SEIZURES Verified 09/09/24 13:01 [From Depakote] olanzapine [From Zyprexa] Allergy Mild NIPPLES Verified 09/09/24 13:01 LEAK risperidone [From Risperdal] Allergy Mild UNKNOWN Verified 09/09/24 13:01 quetiapine [From SEROQUEL] Allergy Unknown HEART Verified 09/09/24 13:01 PALPITATIONS lithium [[place]] AdvReac Mild STOMACH Verified 09/09/24 13:01 PAIN aripiprazole [From ABILIFY] AdvReac Unknown DYSTONIA Verified 09/09/24 13:01 Assessment & Plan Assessment & Plan (1) Schizoaffective disorder, depressive type: Status: Acute Code(s): F25.1 - Schizoaffective disorder, depressive type (2) Suicidal ideation: Status: Acute Code(s): R45.851 - Suicidal ideations Plan 44-year-old male with history of ADHD, schizoaffective disorder, depressive type and polysubstance use disorder, presented to [facility] ED on 09/09/2024 from the [facility] [place] recovery program for SI in the setting of medication of medication adjustment. He notes that he was released from [facility] a month and a half ago. While in [facility], his Invega was switched to risperidone which he is allergic to. Reports adverse reactions of increased depression, brain fog/lack of concentration, and agitation to risperidone. It took him 2 weeks to follow-up with the psychiatrist following his released from [facility]. His psychiatrist discontinued risperidone and started Invega with plan to titrate up to 9 mg daily. He was on Invega 3 mg daily when he started experiencing increased depressive symptoms, brain fog/lack of concentration, agitation, and suicidality. He was brought to the ED by the [facility] [place] recovery program. He reports current SI without a plan. He denies HI. He notes seeing shadows to his peripheral view, and hearing voices that he does not comprehend. He has been taking his medications as prescribed. He denies command hallucinations. He notes that he has been sober from alcohol and illicit drugs since January 2025. His goal is to be stable on Invega. He requests for his Adderall to be changed from 20 mg TID to 30 mg AM and PM for effectiveness. 09/14/2024 Continue plan of care continue Invega Formulation/Clinical reasoning: Schizoaffective disorder, depressive type: His current symptoms, including suicidality may be attributed to recent medication changes. He currently has suicide ideation without a plan. He is also experiencing visual and auditory hallucinations but seems mild. No, and hallucinations. His Invega was increased from 3 mg daily to 6 mg daily yesterday; will continue to titrate up as needed. Adderall change from 20 mg t.i.d. to 30 mg a.m. and p.m. Continue current treatment regimen. Hospital course: 09/13Patient reports he is feeling a little better today; says he was feeling cloudy yesterday and agrees he was a bit confused. Discussed medication regimen and patient agrees to titrate his paliperidone to 9 mg. Says he does not want long-acting Invega Sustenna. Patient was started on Ativan in the ED but agrees to have it lowered to 1 mg daily p.r.n. for severe panic. Patient expressed pride in having remain sober, says it will be year january. 09/15 cont treatment 09/16 Patient reports that he is doing well and remains in better mood. Still has auditory hallucinations but they are minimal and able to be ignored. Discussed clonazepam and agrees to keep it at 1 mg daily p.r.n.. Patient sometimes sees shadow figures but says that this and AH are both part of his baseline. Discussed discharge. -at this point continue with dispo planning; patient has remained sober for 8 months and successful disposition will help him remain stable 09/17 continue current treatment plan Plan Admit to M5. CV 15 minutes check. Continue paliperidone 9 mg daily Decrease Ativan to 1 mg p.r.n. daily for panic Diagnostics as needed. Collateral contact. Continue remainder of regime. Encouraged full milieu. Discharge planning. Patient educated on: diagnosis Informed Consent: understands Reason for continued inpatient stay Substantial Risk for: stable for discharge Time Spent With Patient Time: Total time managing care of this patient today ____ minutes.
[2024-09-18 19:55] VITALS: BP 125/75; PULSE 80; TEMP 36.7; O2SAT 98
[2024-09-18] MEDS: Prazosin HCL 1 MG CAPSULE 2 MG PO (20:54)
[2024-09-18] MEDS: traZODone HCL 100 MG TABLET PO (20:54)
[2024-09-19 07:00] VITALS: BMI 34.9
[2024-09-19] MEDS: methADONE HCl 20 MG/2 ML ORAL.CONC 135 MG PO (07:47)
[2024-09-19 08:30] VITALS: BP 95/61; PULSE 108; RESP 18; TEMP 36.5; O2SAT 18
[2024-09-19] MEDS: Fluticasone/Vilanterol 200/25 BLST.W.DEV 1 PUFF INHALE (08:38)
[2024-09-19] MEDS: Amphetamine Mixed Salts 20 MG TABLET 30 MG PO ×2 (08:39→11:11)
[2024-09-19] MEDS: Benztropine Mesylate 1 MG TABLET PO (08:39)
[2024-09-19] MEDS: Paliperidone ER 9 MG TAB.ER.24 PO (08:39)
[2024-09-19] MEDS: Escitalopram Oxalate 10 MG TABLET PO (08:39)
--- NOTE | 2024-09-19 11:00 | PM.PSYDC ---
DS: Providers Provider Date of Service: 09/19/24 Date of admission: 09/10/24 13:18 Date of discharge: 09/19/24 Primary care physician: Unknown Physician Attending physician on admission: Ishmael Dunne Attending physician on discharge: Ishmael Dunne DS: Diagnosis Discharge Diagnosis (1) Schizoaffective disorder, depressive type: Status: Acute (2) Suicidal ideation: Status: Acute DS: Medications Discharge Medications Home Medications: Home Medications ?Medication ?Instructions ?Recorded ?Confirmed methadone 10 mg/mL oral 135 mg PO DAILY 12/08/23 09/09/24 concentrate (Methadone Intensol) Previous Rx's ?Medication ?Instructions ?Recorded albuterol sulfate 90 mcg/actuation 1 inh inhalation QID PRN asthma 30 09/19/24 aerosol inhaler (Ventolin HFA) days #6.7 grams benztropine 1 mg tablet 1 mg PO BID 30 days #60 tabs 09/19/24 dextroamphetamine-amphetamine ER 1 cap PO BID@0900,1300 30 days #60 09/19/24 20 mg 24hr capsule,extend release caps (Adderall XR) docusate sodium 100 mg capsule 100 mg PO BEDTIME PRN Constipation 09/19/24 (Colace) 30 days #30 caps escitalopram oxalate 10 mg tablet 10 mg PO DAILY 30 days #30 tabs 09/19/24 fluticasone 500 mcg-salmeterol 50 1 inh inhalation BID 30 days #60 ea 09/19/24 mcg/dose blistr powdr for inhalation (Wixela Inhub) nicotine (polacrilex) 4 mg gum 4 mg buccal Q2H PRN nicotine 09/19/24 cravings 30 days #100 ea nicotine 21 mg/24 hr daily 21 mg transdermal DAILY PRN 09/19/24 transdermal patch smoking cessation 28 days #28 ea paliperidone 9 mg tablet,extended 9 mg PO DAILY 30 days #30 tabs 09/19/24 release 24 hr prazosin 2 mg capsule 2 mg PO BEDTIME 30 days #30 caps 09/19/24 prazosin 2 mg capsule 2 mg PO DAILY PRN daytime 09/19/24 ptsd/anxiety 30 days #30 caps trazodone 100 mg tablet 100 mg PO BEDTIME insomnia 30 days 09/19/24 #30 tabs Mental Status Exam Mental Status Exam Narrative: Pt is alert and oriented; behavior is cooperative, friendly and calm; patient is not in distress; dressed in casual attire with adequate hygiene; mood is described as good and affect congruent; eye contact appropriate; Speech is normal rate, volume and prosody and not pressured; no psychomotor agitation/retardation present; thought process is organized and goal directed; Thought content is on tx; otherwise pertinent to relevant topics and without any delusional content, paranoid ideations or grandiosity; AH but minimal; VH but not disturbing denies any SI/HI. Patients insight and judgment appear intact. Data Data Completed and Pending Completed studies during hospitalization [Text1]: 09/09/24 13:46 Paliperidone 13.9 L DS: Summary Hospital Course Hospital Course: 44-year-old male with history of ADHD, schizoaffective disorder, depressive type and polysubstance use disorder, presented to [facility] ED on 09/09/2024 from the [facility] recovery program for SI in the setting of medication of medication adjustment. He notes that he was released from [facility] a month and a half ago. While in [facility], his Invega was switched to risperidone which he is allergic to. Reports adverse reactions of increased depression, brain fog/lack of concentration, and agitation to risperidone. It took him 2 weeks to follow-up with the psychiatrist following his released from [facility]. His psychiatrist discontinued risperidone and started Invega with plan to titrate up to 9 mg daily. He was on Invega 3 mg daily when he started experiencing increased depressive symptoms, brain fog/lack of concentration, agitation, and suicidality. He was brought to the ED by the [facility] recovery program. He reports current SI without a plan. He denies HI. He notes seeing shadows to his peripheral view, and hearing voices that he does not comprehend. He has been taking his medications as prescribed. He denies command hallucinations. He notes that he has been sober from alcohol and illicit drugs since January 2025. His goal is to be stable on Invega. He requests for his Adderall to be changed from 20 mg TID to 30 mg AM and PM for effectiveness. 09/14/2024 Continue plan of care continue Invega Formulation/Clinical reasoning: Schizoaffective disorder, depressive type: His current symptoms, including suicidality may be attributed to recent medication changes. He currently has suicide ideation without a plan. He is also experiencing visual and auditory hallucinations but seems mild. No, and hallucinations. His Invega was increased from 3 mg daily to 6 mg daily yesterday; will continue to titrate up as needed. Adderall change from 20 mg t.i.d. to 30 mg a.m. and p.m. Continue current treatment regimen. Hospital course: 09/13Patient reports he is feeling a little better today; says he was feeling cloudy yesterday and agrees he was a bit confused. Discussed medication regimen and patient agrees to titrate his paliperidone to 9 mg. Says he does not want long-acting Invega Sustenna. Patient was started on Ativan in the ED but agrees to have it lowered to 1 mg daily p.r.n. for severe panic. Patient expressed pride in having remain sober, says it will be year this January. 09/16 Patient reports that he is doing well and remains in better mood. Still has auditory hallucinations but they are minimal and able to be ignored. Discussed clonazepam and agrees to keep it at 1 mg daily p.r.n.. Patient sometimes sees shadow figures but says that this and AH are both part of his baseline. Discussed discharge. Patient is at baseline. He has remained with good mood, no SI, future oriented and in good behavioral and impulse control, appropriate with peers and staff and engaged in treatment. Patient is not in imminent risk for harm to self or others and appropriate to return to the community for treatment. Request for discharge honored. Time spent discussing smoking cessation with patient: 3 to 10 minutes Status at Discharge Functional status at discharge: independent ambulation Overall status at discharge: patient is back to baseline Time Spent with Patient Time attestation: Total time managing care of this patient today __40__ minutes. Time spent: Greater than 30 minutes Specific discharge activities: Met with patient; discussed with team; charting; prescriptions Discharge Plan Discharge Anticipated Discharge Date/Time: 09/19/24 11:00 Patient Disposition: [facility] Discharge Diagnosis: schizoaffective disorder, depressed type Referrals: Dr. Ira Lang: [facility] [Other] - 10/17/24 9:00 am (Hospital discharge appointment with psychiatric medication provider. Appointment in person at [facility].) [facility] [employer] [Other] - 1 Week (Referral for Communications Equipment Operator agile coach will follow-up with you in the community after discharge ) [facility] [Other] - 09/19/24 11:00 am (Patient will return to [facility] for substance abuse treatment.) Physician,Unknown J [Primary Care Provider] - 1 Week (no release signed) Discharge Medications: New nicotine 21 mg/24 hr Patch 24 Hour 21 mg transdermal DAILY PRN (Reason: smoking cessation) 28 Days Qty: 28 0RF nicotine (polacrilex) 4 mg gum 4 mg buccal Q2H PRN (Reason: nicotine cravings) 30 Days Qty: 100 0RF Continued methadone [Methadone Intensol] 10 mg/mL Concentrate 135 mg PO DAILY albuterol sulfate [Ventolin HFA] 90 mcg/actuation Hfa Aerosol Inhaler 1 inh INHALATION QID PRN (Reason: asthma) 30 Days Qty: 6.7 0RF fluticasone propion-salmeterol [Wixela Inhub] 500-50 mcg/dose Blister With Device 1 inh INHALATION BID 30 Days Qty: 60 0RF benztropine 1 mg tablet 1 mg PO BID 30 Days Qty: 60 0RF docusate sodium [Colace] 100 mg Capsule 100 mg PO BEDTIME PRN (Reason: Constipation) 30 Days Qty: 30 0RF prazosin 2 mg capsule 2 mg PO BEDTIME 30 Days Qty: 30 0RF prazosin 2 mg capsule 2 mg PO DAILY PRN (Reason: daytime ptsd/anxiety) 30 Days Qty: 30 0RF escitalopram oxalate 10 mg tablet 10 mg PO DAILY 30 Days Qty: 30 0RF Changed dextroamphetamine-amphetamine [Adderall XR] 20 mg capsule,extended release 24hr 1 cap PO BID@0900,1300 30 Days Qty: 60 0RF trazodone 100 mg tablet 100 mg PO BEDTIME 30 Days Qty: 30 0RF paliperidone 9 mg tablet extended release 24 hr 9 mg PO DAILY 30 Days Qty: 30 0RF Discharge Orders: Discharge Order (Routine); Ordered 09/19/24 Ordered By: Ishmael Dunne Diet: Regular diet Activity on Discharge: As tolerated Stand Alone Forms: Patient Portal Discharge page, Community Support Print Language: Serbian Care Plan Goals: Maintain mood and safe behaviors Take medications as prescribed Continue to pursue sobriety Practice coping skills Continue with outpatient providers and reach out to them as needed Health Concerns: Mood stability and behaviors Asthma Plan of Treatment: Follow up with your PCP, psychiatric provider and other outpatient providers regarding above concerns Take medications as prescribed Assessment: Risk assessment at time of discharge:? Patient was interviewed prior to discharge and found to be fully oriented and without any SI or HI. Patient has improved insight and judgment and wants to continue treatment. Patient is not in imminent risk of harm to self or others and has a safety plan that includes presenting to the closest ER or calling 911 if feeling unsafe.? Patient has been observed closely by nursing and unit staff throughout admission; patient has not engaged in any behaviors that suggest dangerousness to self or others and has demonstrated appropriate behaviors and impulse control Discharge Date/Time: 09/19/24 11:29
[2024-09-19] MEDS: Naloxone HCl Nasal TAKE HOME 4 MG SPRAY 8 MG NOSTRILALT (11:10)
== END 2024-09-19 11:29 | disposition home or self-care (01) | DRG 750 ==
LOC: HO.ED 16:53 → HO.PM5 09-10 13:38
PROVIDERS: Emergency Medicine Emergency Medical Services; Physician Assistant Medical; Admitting Provider Psychiatry & Neurology Psychiatry; Emergency Provider Emergency Medicine; Visit Provider Psychiatry & Neurology Psychiatry
DX: F25.1 Schizoaffective disorder, depressive type (principal); R45.851 Suicidal ideations; F17.210 Nicotine dependence, cigarettes, uncomplicated; Z71.6 Tobacco abuse counseling; F11.20 Opioid dependence, uncomplicated; Z79.899 Other long term (current) drug therapy
CPT/HCPCS: 36415; 80053; 80061; 80143; 80179; 80299; 80307; 81003; 83036; 84443; 85025; 93005; 99285; S9485

== ENCOUNTER → 2024-09-10 09:11 | Outpatient (BNV) | payer OTHER, SELFPAY | PROVIDERS: Admitting Provider Psychiatry & Neurology Psychiatry; Emergency Provider Emergency Medicine; Visit Provider Internal Medicine | DX: R94.31 Abnormal electrocardiogram [ECG] [EKG] (principal); Z13.6 Encounter for screening for cardiovascular disorders | CPT/HCPCS: 93010 ==

== ENCOUNTER → 2024-09-10 13:18 | Outpatient (BNV) | payer OTHER, SELFPAY | PROVIDERS: Admitting Provider Psychiatry & Neurology Psychiatry; Emergency Provider Emergency Medicine; Visit Provider Psychiatry & Neurology Psychiatry | DX: F25.1 Schizoaffective disorder, depressive type (principal); R45.851 Suicidal ideations | CPT/HCPCS: 99231 ==

== ENCOUNTER → 2024-09-10 13:18 | Outpatient (BNV) | payer OTHER, SELFPAY | PROVIDERS: Admitting Provider Psychiatry & Neurology Psychiatry; Emergency Provider Emergency Medicine; Visit Provider Nurse Practitioner Family | DX: F25.1 Schizoaffective disorder, depressive type (principal); R45.851 Suicidal ideations | CPT/HCPCS: 90792; 99231; 99232 ==

== ENCOUNTER 2024-10-08 17:16 | Emergency (ER) | payer OTHER, SELFPAY ==
[2024-10-08 17:39] VITALS: BP 124/77; PULSE 112; RESP 24; TEMP 37.2; O2SAT 95; BMI 32.1
--- NOTE | 2024-10-08 17:39 | ED_ITS ---
HPI - General Adult General Chief complaint: Medical Clearance Stated complaint: aggressive behavior Time Seen by Provider: 10/08/24 17:36 Source: patient, EMS and RN notes reviewed Mode of arrival: EMS Limitations: no limitations History of Present Illness ED Provider: Alejandra Pfeiffer PA-C HPI narrative: This is a 44-year-old male, with a past medical history of schizoaffective disorder, PTSD, ADHD, opioid use disorder, who presents emergency department via EMS from sober living facility for medical clearance . Patient reports that he had a random drug screening, and tested positive for Suboxone, which he is not taking. He states that he is currently on methadone which he received his dose today. He reports that he is feeling frustrated given the situation, and he also has mild left ear pain, otherwise he has no other medical complaints. He denies any chest pain, shortness of breath, abdominal pain, nausea, vomiting or diarrhea. He denies any alcohol use. He denies using any drugs today. He denies any suicidal or homicidal ideation. No auditory or visual hallucinations. No other complaints or concerns at this time. MD complaint: Medical clearance Relieving factors: none Exacerbating factors: none Associated symptoms: denies other symptoms Treatments prior to arrival: none Related Data Home Medications ?Medication ?Instructions ?Recorded ?Confirmed methadone 10 mg/mL oral 135 mg PO DAILY 12/08/2306/04 concentrate (Methadone Intensol) Previous Rx's ?Medication ?Instructions ?Recorded albuterol sulfate 90 mcg/actuation 1 inh inhalation QI D PRN asthma 30 09/19/24 aerosol inhaler (Ventolin HFA) days #6.7 grams benztropine 1 mg tablet 1 mg PO BID 30 days #60 tabs 09/19/24 dextroamphetamine-amphetamine ER 1 cap PO BID@0900,130 0 30 days #60 09/19/24 20 mg 24hr capsule,extend release caps (Adderall XR) docusate sodium 100 mg capsule 100 mg PO BEDTIME PRN C onstipation 09/19/24 (Colace) 30 days #30 caps escitalopram oxalate 10 mg tablet 10 mg PO DAILY 30 da ys #30 tabs 09/19/24 fluticasone 500 mcg-salmeterol 50 1 inh inhalation BID 30 days #60 ea 09/19/24 mcg/dose blistr powdr for inhalation (Wixela Inhub) nicotine (polacrilex) 4 mg gum 4 mg buccal Q2H PRN cornel otine 09/19/24 cravings 30 days #100 ea nicotine 21 mg/24 hr daily 21 mg transdermal DAILY PRN 09/19/24 transdermal patch smoking cessation 28 days #2 8 ea paliperidone 9 mg tablet,extended 9 mg PO DAILY 30 day s #30 tabs 09/19/24 release 24 hr prazosin 2 mg capsule 2 mg PO BEDTIME 30 days #30 caps 09/19/24 prazosin 2 mg capsule 2 mg PO DAILY PRN daytime ptsd/anxiety 30 days #30 caps trazodone 100 mg tablet 100 mg PO BEDTIME insomnia 3 0 days 09/19/24 #30 tabs Allergies Allergy/AdvReac Type Severity Reaction Status Date / Time tomato (Tomato) Allergy Severe DIFFICULTY Verified 10/08/24 17:49 BREATHING, swelling of face and throat divalproex sodium (From Allergy Mild SEIZURES Verified 10/08/24 17:49 Depakote) olanzapine (From Zyprexa) Allergy Mild NIPPLES Verified 10/08/24 17:49 LEAK risperidone (From Risperdal) Allergy Mild UNKNOWN Verified 10/08/24 17:49 quetiapine (From SEROQUEL) Allergy Unknown HEART Verified 10/08/24 17:49 PALPITATIONS lithium (Nipomo) AdvReac Mild STOMACH Verified 10/08/24 17:49 PAIN aripiprazole (From ABILIFY) AdvReac Unknown DYSTONIA Verified 10/08/24 17:49 Review of Systems Review of Systems: Yes all other systems are reviewed and are negative Constitutional: Constitutional: Reports as per [facility] Past Medical History Medical History Abnormal CT scan, chest Hepatitis C Cocaine use disorder Schizoaffective disorder, depressive type Opioid use disorder, severe, dependence Cocaine use disorder Panic anxiety syndrome OCD (obsessive compulsive disorder) Post traumatic stress disorder (PTSD) HTN (hypertension) Surgical History No pertinent past surgical history Social History Social History Household Members: Family Household Members Other:: lives alone Housing: House Do you presently have visiting nurse or other home services: No Unable to assess alcohol history related to: Refusing to respond Alcohol intake: current Alcohol intake frequency: a few times a week Alcohol type: beer and hard liquor Comment: M3 Patient Tobacco Use Status: Current everyday Tobacco user Tobacco use type: Cigarette Cigarette Packs Per Day: 0.3 Cigarettes Per Day: 6.0 Years Smoked: 30+ e-Cigarette/Vaping Use: Currently Using Second Hand Smoke Exposure: Yes Substance Use Type: Crack/Cocaine and Marijuana Advance Directives: No Advance Directives Information Provided: No service: No Sexual orientation: Straight/Heterosexual Physical Exam ED Vital Signs: Vital Signs - 24 hr 10/08/24 17:39 10/08/24 19:05 10/08/24 19:06 Temperature 99 F 98.5 F 98.5 F Pulse Rate 112 H 118 H 118 H Respiratory Rate 24 H 20 20 Blood Pressure 124/77 129/73 129/73 Pulse Oximetry 95 98 98 Oxygen Delivery Method Room Air Room Air Room Air BMI result Body Mass Index 32.1 Const General: cooperative, comfortable and no acute distress Orientation/consciousness: patient oriented x3 Limitations: no limitations HENMT Head: Yes normal to inspection, Yes normocephalic and Yes atraumatic Ears: hearing grossly normal bilaterally and TM's normal bilaterally General nose exam: Normal external nose present Face and sinus: Yes normal facial exam Mouth: Normal oral and palatal mucosa present, oropharynx normal and moist mucous membranes Throat: Yes posterior oropharynx normal Eyes General: appearance normal, both eyes and all related structures Eyelids: Yes eyelids normal Conjunctivae: conjunctivae normal Sclerae: sclerae normal Pupils: Equal, round and reactive pupils present EOM: EOMs intact bilaterally Neck Neck: Yes normal visual inspection, Yes full ROM and Yes no lymphadenopathy Lymphatic: no lymphadenopathy noted Chest Chest palpation & inspection: normal inspection of the chest Resp Effort & Inspection: normal respiratory effort and able to speak in complete sentences Auscultation: clear to auscultation bilaterally, no crackles, no rales, no rhonchi and no wheezes Cardio Rate: regular rate Rhythm: regular rhythm Heart sounds: S1 normal heart sound present and S2 normal heart sound present GI Inspection: Yes normal to inspection Skin General skin exam: no rashes or lesions noted Trauma: no lacerations or abrasions Wounds: no wounds Neuro General: patient oriented x3 and moves all extremities Cranial nerves: Yes Equal, round and reactive pupils present Extrem General: Yes normal to inspection Right upper extremity: normal to inspection Left upper extremity: normal to inspection Right lower extremity: normal to inspection Left lower extremity: normal to inspection Medications Administered Discontinued Medications Generic Name Dose Route Start Last Admin Trade Name Jairq PRN Reason Stop Dose Admin Lorazepam 1 mg 10/08/24 17:38 10/08/24 18:02 Lorazepam 1 Mg Tablet PO 10/08/24 17:39 1 mg ONCE ONE Administration Medical Decision Making Medical Decision Making [facility] Narrative: This is a 44-year-old male, with a past medical history of opioid use disorder on methadone, MDD, ADHD, schizoaffective disorder, who presents emergency department via EMS for medical clearance. According to patient, he had a positive urine drug screen for Suboxone. Patient states that he was told to report to the emergency room for ?medical clearance. Patient states that he is feeling frustrated, otherwise no other complaints. No SI or HI. He is not on a section 12. Will medicate with Ativan as patient is very anxious, and he currently takes Ativan at home as needed. We will also obtain urine drug screen. Patient did not come with any paperwork in regards to needs for medical clearance, and sober living facility also did not call. Sign out given to Dr. Matias pending utox and re-eval. Differential Diagnosis Differential Diagnoses: The differential diagnosis associated with the presentation includes Anxiety, depression, polysubstance use disorder, opioid use disorder Admission/Observation Consideration of admission/observation: Escalation of care including admission/observation considered Lab Data [facility] Lab Attestation statement: I reviewed the patient's lab results. Labs: Lab Results 10/08/24 Range/Units 18:13 Urine Opiates Screen Not Detected (Not Detect) Ur Buprenorphine Scrn Not Detected (Not Detect) ng/mL Ur Oxycodone Screen Not Detected (Not Detect) ng/mL Urine Methadone Screen Positive H (Not Detect) ng/mL Urine Fentanyl Screen Not Detected (Not Detect) Ur Barbiturates Screen Not Detected (Not Detect) Ur Phencyclidine Scrn Not Detected (Not Detect) Ur Amphetamines Screen POSITIVE H (Not Detect) U Benzodiazepines Scrn Not Detected (Not Detect) Urine Cocaine Screen Not Detected (Not Detect) U Marijuana (THC) Screen Not Detected (Not Detect) Radiology Impression Discussion of test interpretation with radiology: I have reviewed the radiologist's reading. Discharge Plan Discharge Clinical Impression: Opioid use disorder, severe, dependence, Anxiety Patient Disposition: Home, Self-Care Instructions: Opioid Use Disorder (ED) Additional Instructions: You were evaluated in the emergency department for ear pain. Your residential facility requested a urine toxicology panel. Urine toxicology panel revealed positive amphetamine, positive methadone. Buprenorphine negative, oxycodone negative, fentanyl negative, barbiturates negative, marijuana negative, cocaine negative, benzodiazepine negative. Prescriptions: No Action methadone [Methadone Intensol] 10 mg/mL Concentrate 135 mg PO DAILY albuterol sulfate [Ventolin HFA] 90 mcg/actuation Hfa Aerosol Inhaler 1 inh INHALATION QID PRN (Reason: asthma) 30 Days Qty: 6.7 0RF nicotine 21 mg/24 hr Patch 24 Hour 21 mg transdermal DAILY PRN (Reason: smoking cessation) 28 Days Qty: 28 0RF nicotine (polacrilex) 4 mg gum 4 mg buccal Q2H PRN (Reason: nicotine cravings) 30 Days Qty: 100 0RF dextroamphetamine-amphetamine [Adderall XR] 20 mg capsule,extended release 24hr 1 cap PO BID@0900,1300 30 Days Qty: 60 0RF trazodone 100 mg tablet 100 mg PO BEDTIME 30 Days Qty: 30 0RF fluticasone propion-salmeterol [Wixela Inhub] 500-50 mcg/dose Blister With Device 1 inh INHALATION BID 30 Days Qty: 60 0RF benztropine 1 mg tablet 1 mg PO BID 30 Days Qty: 60 0RF docusate sodium [Colace] 100 mg Capsule 100 mg PO BEDTIME PRN (Reason: Constipation) 30 Days Qty: 30 0RF prazosin 2 mg capsule 2 mg PO BEDTIME 30 Days Qty: 30 0RF prazosin 2 mg capsule 2 mg PO DAILY PRN (Reason: daytime ptsd/anxiety) 30 Days Qty: 30 0RF escitalopram oxalate 10 mg tablet 10 mg PO DAILY 30 Days Qty: 30 0RF paliperidone 9 mg tablet extended release 24 hr 9 mg PO DAILY 30 Days Qty: 30 0RF Interventions: ED Discharge Assessment Last Done: 10/08/24 19:06 Discharge Date/Time: 10/08/24 19:06 Print Language: [place]
[2024-10-08 18:31] LABS: Cannabinoid Screen Urine Not Detected (Not Detect)
[2024-10-08 19:05] VITALS: BP 129/73; PULSE 118; RESP 20; TEMP 36.9; O2SAT 98
[2024-10-08 19:06] VITALS: BP 129/73; PULSE 118; RESP 20; TEMP 36.9; O2SAT 98
== END 2024-10-08 19:06 | disposition home or self-care (01) ==
PROVIDERS: Physician Assistant Medical; Emergency Provider Emergency Medicine
DX: F11.20 Opioid dependence, uncomplicated (principal); F41.9 Anxiety disorder, unspecified; Z79.899 Other long term (current) drug therapy; Z51.81 Encounter for therapeutic drug level monitoring
CPT/HCPCS: 80307; 99283